=== PATIENT | female | born 1965 | race Caucasian/White ===

== ENCOUNTER 2020-02-29 10:47 | Outpatient (REF) | payer OTHER, SELFPAY | END 2020-02-29 10:48 | disposition home or self-care (01) | LOC: HO.HMGCLDS 10:47 | PROVIDERS: PCP Internal Medicine; Visit Provider Internal Medicine | DX: Z20.828 Contact with and (suspected) exposure to other viral communicable diseases (principal) | CPT/HCPCS: 87635 ==

== ENCOUNTER → 2020-03-07 10:16 | Outpatient (BNVA) | payer OTHER, SELFPAY | PROVIDERS: PCP Internal Medicine; Referring Provider Internal Medicine; Visit Provider Nurse Practitioner | DX: Z86.010 Personal history of colon polyps (principal); G47.33 Obstructive sleep apnea (adult) (pediatric); E66.9 Obesity, unspecified | CPT/HCPCS: 99212 ==

== ENCOUNTER 2020-03-11 10:12 | Outpatient (REF) | payer OTHER, SELFPAY ==
[2020-03-11 12:20] LABS: Estimated Average Glucose 117 mg/dL; Hemoglobin A1c % 5.7 %
[2020-03-11 12:22] LABS: Alanine Aminotransferase 17 U/L (0-31); Aspartate Amino Transferase 18 U/L (5-31); Blood Urea Nitrogen 18 mg/dL (9-16); Calcium 8.4 mg/dL (8.4-10.2); Cholesterol 175 mg/dL; Estimated Glomerular Filt Rate > 60; Glucose Fasting 106 mg/dL (60-99); HDL Cholesterol 51 mg/dL; LDL Cholesterol Calculated 114 mg/dl; Triglycerides 52 mg/dL
[2020-03-11 12:27] LABS: Vitamin D 25-OH Total 25.1 ng/mL (>30)
[2020-03-11 12:37] LABS: Anion Gap 10 (12-20); Carbon Dioxide 30 mmol/L (22-29); Chloride 107 mmol/L (96-108); Potassium 4.4 mmol/l (3.3-5.1); Sodium 143 mmol/L (135-145)
[2020-03-11 13:08] LABS: MANUAL DIFF FLAG NO
[2020-03-11 13:16] LABS: Basophils Percent Auto 0.5 % (0-2); Eosinophils Percent Auto 0.7 % (0-4); Hemoglobin 11.5 g/dl (12.0-16.0); Imm Gran Abs Auto 0.01 X10*3/uL (0.00-0.03); Imm Gran Pct Auto 0.2 % (0.0-0.4); Lymphocytes Absolute Auto 1.5 X10*3/uL (1.2-4.9); Lymphocytes Percent Auto 26.5 % (20-40); Mean Corpuscular HGB Conc 31.9 g/dl (31.0-35.0); Mean Corpuscular Hemoglobin 28.2 pg (27.0-33.0); Mean Corpuscular Volume 88.2 fL (80-98); Mean Platelet Volume 11.8 fL (9.4-12.3); Monocytes Absolute Auto 0.4 X10*3/uL (0.1-1.2); Monocytes Percent Auto 6.7 % (2-11); Neutrophils Absolute Auto 3.7 X10*3/uL (2.0-8.3); Neutrophils Percent Auto 65.4 % (45-73); Platelet Count 171 X10*3/uL (160-400); Red Blood Count 4.08 X10*6/uL (4.20-5.50); Red Cell Distribution Width 12.7 % (11.0-16.0); White Blood Count 5.7 X10*3/uL (4.8-10.8)
[2020-03-11 13:51] LABS: Alanine Aminotransferase 17 U/L (0-31); Albumin Level 3.7 g/dL (3.5-5.0); Alkaline Phosphatase 67 U/L (39-117); Anion Gap 10 (12-20); Aspartate Amino Transferase 18 U/L (5-31); Bilirubin Total 0.3 mg/dL (0.0-1.0); Blood Urea Nitrogen 18 mg/dL (9-16); Calcium 8.5 mg/dL (8.4-10.2); Carbon Dioxide 31 mmol/L (22-29); Chloride 107 mmol/L (96-108); Estimated Glomerular Filt Rate > 60; Glucose Random 92 mg/dL (60-115); Potassium 4.6 mmol/l (3.3-5.1); Sodium 143 mmol/L (135-145); Total Protein 7.1 g/dL (6.5-8.0)
== END 2020-03-11 10:13 | disposition home or self-care (01) ==
LOC: HO.HMGCLDS 10:12
PROVIDERS: PCP Internal Medicine; Referring Provider Nurse Practitioner; Visit Provider Internal Medicine
DX: E78.5 Hyperlipidemia, unspecified (principal); E11.9 Type 2 diabetes mellitus without complications; I10 Essential (primary) hypertension; Z78.0 Asymptomatic menopausal state; D12.6 Benign neoplasm of colon, unspecified
CPT/HCPCS: 36415; 80048; 80053; 80061; 82306; 83036; 84450; 84460; 85025

== ENCOUNTER 2020-06-13 11:11 | Outpatient (REF) | payer OTHER, SELFPAY ==
[2020-06-13 13:56] LABS: MANUAL DIFF FLAG NO
[2020-06-13 14:02] LABS: Basophils Percent Auto 0.5 % (0-2); Eosinophils Absolute Auto 0.1 X10*3/uL (0.0-0.4); Hemoglobin 11.2 g/dl (12.0-16.0); Imm Gran Abs Auto 0.02 X10*3/uL (0.00-0.03); Imm Gran Pct Auto 0.3 % (0.0-0.4); Lymphocytes Absolute Auto 1.1 X10*3/uL (1.2-4.9); Lymphocytes Percent Auto 17.7 % (20-40); Mean Corpuscular Hemoglobin 27.8 pg (27.0-33.0); Mean Corpuscular Volume 86.8 fL (80-98); Mean Platelet Volume 12.8 fL (9.4-12.3); Monocytes Absolute Auto 0.4 X10*3/uL (0.1-1.2); Monocytes Percent Auto 6.7 % (2-11); Neutrophils Absolute Auto 4.6 X10*3/uL (2.0-8.3); Neutrophils Percent Auto 73.8 % (45-73); Platelet Count 171 X10*3/uL (160-400); Red Blood Count 4.03 X10*6/uL (4.20-5.50); Red Cell Distribution Width 13.2 % (11.0-16.0); White Blood Count 6.3 X10*3/uL (4.8-10.8)
[2020-06-13 14:08] LABS: Estimated Average Glucose 120 mg/dL; Hemoglobin A1c % 5.8 %
[2020-06-13 14:38] LABS: Alanine Aminotransferase 19 U/L (0-31); Anion Gap 10 (12-20); Aspartate Amino Transferase 17 U/L (5-31); Blood Urea Nitrogen 25 mg/dL (9-16); Calcium 8.7 mg/dL (8.4-10.2); Carbon Dioxide 31 mmol/L (22-29); Chloride 105 mmol/L (96-108); Cholesterol 159 mg/dL; Estimated Glomerular Filt Rate > 60; Glucose Fasting 86 mg/dL (60-99); HDL Cholesterol 43 mg/dL; LDL Cholesterol Calculated 102 mg/dl; Potassium 4.5 mmol/L (3.3-5.1); Sodium 141 mmol/L (135-145); Triglycerides 70 mg/dL
[2020-06-13 14:41] LABS: Creatinine Urine 137.95 mg/dL; Microalbum/Creatinine Ratio Ur 5.7 ug/mg cr
[2020-06-13 15:01] LABS: TSH reflex Free T4 1.87 uIU/mL (0.32-4.0); Vitamin D 25-OH Total 30.3 ng/mL (>30)
== END 2020-06-13 11:12 | disposition home or self-care (01) ==
LOC: HO.HMGCLDS 11:11
PROVIDERS: PCP Internal Medicine; Visit Provider Internal Medicine
DX: E55.9 Vitamin D deficiency, unspecified (principal); I10 Essential (primary) hypertension; E78.5 Hyperlipidemia, unspecified; E11.9 Type 2 diabetes mellitus without complications; E66.9 Obesity, unspecified; D12.6 Benign neoplasm of colon, unspecified; Z78.0 Asymptomatic menopausal state
CPT/HCPCS: 36415; 80048; 80061; 82043; 82306; 83036; 84443; 84450; 84460; 85025

== ENCOUNTER 2020-07-01 11:28 | Outpatient (REF) | payer OTHER, SELFPAY ==
--- NOTE | ~2020-07-01 | XR_ITS ---
EXAMINATION: XR WRIST, RIGHT CLINICAL INFORMATION: Pain COMPARISON: Previous x-ray October 2016 TECHNIQUE: PA, lateral, and oblique views of the right wrist. FINDINGS: Bone alignment is normal. No fracture or dislocation is seen. There is mild arthritis at the first [facility] joint with osteophyte formation. Joint spaces are otherwise normal. There is soft tissue arterial calcification. XR/XR wrist RT min 3V IMPRESSION: Mild arthritis first [facility] joint.
== END 2020-07-01 11:29 | disposition home or self-care (01) ==
LOC: HO.HMGCX 11:28
PROVIDERS: PCP Internal Medicine; Visit Provider Hospitalist
DX: M25.531 Pain in right wrist (principal)
CPT/HCPCS: 73110

== ENCOUNTER → 2020-07-19 14:39 | Outpatient (BNVA) | payer OTHER, SELFPAY | PROVIDERS: PCP Internal Medicine; Visit Provider Nurse Practitioner Gerontology | DX: E11.9 Type 2 diabetes mellitus without complications (principal); E78.5 Hyperlipidemia, unspecified; E55.9 Vitamin D deficiency, unspecified; I10 Essential (primary) hypertension | CPT/HCPCS: 82947; Q3014 ==

== ENCOUNTER 2020-07-29 10:44 | Outpatient (REF) | payer OTHER, SELFPAY ==
--- NOTE | ~2020-07-29 | CT_ITS ---
EXAMINATION: CT WRIST WITHOUT CONTRAST, RIGHT CLINICAL INFORMATION: Right wrist pain. COMPARISON: Right wrist radiographs dated 07/01/2020 TECHNIQUE: Contiguous axial CT images of the right wrist were obtained without contrast. Multiplanar reformats were provided and reviewed. This CT examination was performed using dose optimization techniques as appropriate, variously including the following: *Automated exposure control *Adjustment of mA and/or kV according to patient size (this includes techniques or standardized protocols for targeted exams where dose is matched to indication/reason for exam; i.e. extremities or head) *Use of iterative reconstruction technique DLP: 217 mGy-cm FINDINGS: No acute fracture or dislocation. Normal carpal alignment. Moderate 1st carpometacarpal joint space narrowing with subchondral sclerosis, mild subchondral cystic change, and marginal osteophytes. More minimal joint space narrowing with tiny marginal osteophytes at the triscaphe joint. No concerning lytic or blastic osseous lesion. No abnormal soft tissue mass or fluid collection. No significant subcutaneous edema. Atherosclerotic calcifications. The visualized flexor and extensor tendons are grossly intact, however, evaluation is limited on CT examination. CT/CT wrist RT wo con IMPRESSION: No acute fracture or dislocation. Moderate degenerative arthritis at the 1st carpometacarpal joint with more minimal degenerative arthritis at the triscaphe joint.
== END 2020-07-29 10:45 | disposition home or self-care (01) ==
LOC: HO.CT 10:44
PROVIDERS: PCP Internal Medicine; Visit Provider Internal Medicine
DX: M25.531 Pain in right wrist (principal)
CPT/HCPCS: 73200

== ENCOUNTER → 2020-08-06 07:38 | Outpatient (BNVA) | payer OTHER, SELFPAY | PROVIDERS: PCP Internal Medicine; Visit Provider Nurse Practitioner Gerontology | DX: E11.9 Type 2 diabetes mellitus without complications (principal); E78.5 Hyperlipidemia, unspecified; I10 Essential (primary) hypertension; E55.9 Vitamin D deficiency, unspecified; Z79.52 Long term (current) use of systemic steroids; Z79.84 Long term (current) use of oral hypoglycemic drugs; Z79.899 Other long term (current) drug therapy | CPT/HCPCS: Q3014 ==

== ENCOUNTER → 2020-08-12 13:00 | Outpatient (BNVA) | payer OTHER, SELFPAY | PROVIDERS: PCP Internal Medicine; Visit Provider Orthopaedic Surgery | DX: M25.531 Pain in right wrist (principal); M65.321 Trigger finger, right index finger | CPT/HCPCS: 20550; 99202; J1100 ==

== ENCOUNTER 2020-08-15 11:12 | Emergency (ER) | payer OTHER, SELFPAY ==
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
[2020-08-15 11:25] VITALS: BP 153/58; PULSE 66; RESP 18; TEMP 36.7; O2SAT 100; BMI 27.6
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
[2020-08-15] MEDS: Ketorolac Tromethamine 30 MG/ML VIAL IM (12:25)
== END 2020-08-15 13:35 | disposition home or self-care (01) ==
PROVIDERS: Emergency Provider Emergency Medicine Emergency Medical Services; PCP Internal Medicine
DX: M25.531 Pain in right wrist (principal); E11.9 Type 2 diabetes mellitus without complications; E78.5 Hyperlipidemia, unspecified; I10 Essential (primary) hypertension; D64.9 Anemia, unspecified; J45.909 Unspecified asthma, uncomplicated
CPT/HCPCS: 73110; 96372; 99283; 99284; J1885

== ENCOUNTER 2020-09-04 13:54 | Outpatient (REF) | payer OTHER, SELFPAY ==
--- NOTE | ~2020-09-04 | MR_ITS ---
EXAMINATION: MR WRIST WITHOUT AND WITH CONTRAST, RIGHT CLINICAL INFORMATION: Right wrist pain COMPARISON: CT 07/29/2020. Radiographs 08/15/2014. TECHNIQUE: MRI of the wrist was performed before and after the intravenous administration of 7 mL Gadavist on a high-field scanner. FINDINGS: There are small effusions of the distal radial ulnar joint and radiocarpal joint with enhancing synovitis. Marked reactive marrow edema of the distal ulna with possible developing erosion at the fovea. Prominent edema and enhancement of the surrounding soft tissues along with enhancing tenosynovitis of the extensor carpi ulnaris. There is marrow edema and enhancement at the ulnar aspect of the triquetrum and hamate. The scapholunate and lunotriquetral ligaments appear intact. Probable small full-thickness perforation at the radial aspect of the triangular fibrocartilage complex on coronal image 12. The carpal tunnel, flexor and extensor tendons are intact. There is bone formation along the radial and ulnar aspects of the ulnar groove, along the undersurface of the ECU tendon, which may be from previous inflammatory process or recurrent tendon subluxations. MR/MR wrist RT wo/w con IMPRESSION: Evidence of an active inflammatory arthritis most prominent at the ulnar aspect of the wrist including the distal radioulnar joint and radiocarpal joint with marrow edema and enhancement most prominent at the distal ulna with developing erosion at the fovea. This is nonspecific and could represent infection, although other inflammatory arthropathies such as rheumatoid arthritis could have this appearance. Probable small full-thickness perforation at the radial aspect of the TFCC.
[2020-09-04 14:26] LABS: MANUAL DIFF FLAG NO
[2020-09-04 14:36] LABS: Basophils Percent Auto 0.3 % (0-2); Eosinophils Absolute Auto 0.1 X10*3/uL (0.0-0.4); Eosinophils Percent Auto 0.7 % (0-4); Hematocrit 34.1 % (37-47); Hemoglobin 10.9 g/dl (12.0-16.0); Imm Gran Abs Auto 0.02 X10*3/uL (0.00-0.03); Imm Gran Pct Auto 0.3 % (0.0-0.4); Lymphocytes Absolute Auto 1.2 X10*3/uL (1.2-4.9); Mean Corpuscular Hemoglobin 27.9 pg (27.0-33.0); Mean Corpuscular Volume 87.4 fL (80-98); Monocytes Absolute Auto 0.5 X10*3/uL (0.1-1.2); Neutrophils Absolute Auto 5.8 X10*3/uL (2.0-8.3); Neutrophils Percent Auto 75.7 % (45-73); Platelet Count 182 X10*3/uL (160-400); Red Cell Distribution Width 13.2 % (11.0-16.0); White Blood Count 7.7 X10*3/uL (4.8-10.8)
[2020-09-04 14:51] LABS: Estimated Average Glucose 114 mg/dL; Hemoglobin A1c % 5.6 %
[2020-09-04 14:52] LABS: Alanine Aminotransferase 11 U/L (0-31); Anion Gap 11 (12-20); Aspartate Amino Transferase 17 U/L (5-31); Blood Urea Nitrogen 21 mg/dL (9-16); Calcium 8.5 mg/dL (8.4-10.2); Carbon Dioxide 27 mmol/L (22-29); Chloride 108 mmol/L (96-108); Cholesterol 146 mg/dL; Estimated Glomerular Filt Rate > 60; Glucose Fasting 122 mg/dL (60-99); HDL Cholesterol 46 mg/dL; Iron 42 mcg/dL (30-160); LDL Cholesterol Calculated 76 mg/dl; Percent Iron Saturation 14 % (15-50); Potassium 4.2 mmol/L (3.3-5.1); Sodium 142 mmol/L (135-145); Total Iron Binding Capacity 294 mcg/dL (228-428); Triglycerides 120 mg/dL; Unsaturated Iron Binding 252 ug/dL
== END 2020-09-04 13:55 | disposition home or self-care (01) ==
LOC: HO.MRI 13:54
PROVIDERS: Absent Provider Internal Medicine; PCP Internal Medicine; Visit Provider Orthopaedic Surgery
DX: M25.531 Pain in right wrist (principal); D64.9 Anemia, unspecified; E11.9 Type 2 diabetes mellitus without complications; E78.5 Hyperlipidemia, unspecified; I10 Essential (primary) hypertension; Z78.0 Asymptomatic menopausal state
CPT/HCPCS: 36415; 73223; 80048; 80061; 82306; 83036; 83540; 84450; 84460; 85025; A9585

== ENCOUNTER 2020-09-18 09:15 | Outpatient (REF) | payer OTHER, SELFPAY ==
[2020-09-18 16:45] LABS: Blood Urea Nitrogen 15 mg/dL (9-16); C Reactive Protein 1.28 mg/dL (< or = 0.50); Estimated Glomerular Filt Rate > 60; Rheumatoid Factor < 15.0 IU/mL (<15.0)
[2020-09-18 17:13] LABS: Erythrocyte Sedimentation Rate 50 MM/HR (0-20)
[2020-09-21 12:21] LABS: Anti Nuclear Antibody Screen NEGATIVE (NEGATIVE)
== END 2020-09-18 09:16 | disposition home or self-care (01) ==
LOC: HO.HMGCLDS 09:15
PROVIDERS: PCP Internal Medicine; Visit Provider Orthopaedic Surgery
DX: M65.311 Trigger thumb, right thumb (principal); M65.831 Other synovitis and tenosynovitis, right forearm; M25.531 Pain in right wrist
CPT/HCPCS: 20550; 36415; 82565; 84520; 85652; 86038; 86039; 86140; 86431; 99212; J1100

== ENCOUNTER 2020-10-24 08:50 | Day surgery (SDC) | payer OTHER, SELFPAY ==
[2020-10-24 09:09] VITALS: BMI 24.3
[2020-10-24 09:14] VITALS: BP 152/62; PULSE 63; RESP 16; TEMP 36.1; O2SAT 98
[2020-10-24 09:17] LABS: Glucose, Whole Blood 112 mg/dL (60-115)
[2020-10-24] MEDS: Lidocaine HCl 1%/Epi 1:100,000 20 ML VIAL 9 ML INFILTRATI ×2 (10:33)
--- NOTE | 2020-10-24 10:52 | MHC.SHP ---
Pre-Procedural Eval Section A Date of Service: 10/24/20 Section B Chief Complaint: trigger fingers Allergies: Allergies Allergy/AdvReac Type Severity Reaction Status Date / Time No Known Allergies Allergy Verified 10/24/20 08:58 [No Known Allergies*] Plan I have reviewed the history and physical and performed a pertinent physical examination on my patient. No changes have occurred unless specified.
--- NOTE | 2020-10-24 10:52 | W.PM.OPN ---
Operative Note Operative Note Date of Service: 10/24/20 Narrative: Operative Note Preop diagnosis: 1. Right index finger Trigger finger 2. Right trigger thumb Postop diagnosis: Same Procedure: 1. Right index finger A1 suzanna release 2. Right thumb A1 suzanna release Surgeon: Smitha Thomas MD Anesthesia: local block using 1% lidocaine with epinephrine Findings: No locking or catching after A1 suzanna release EBL: Less than 5 mL Tourniquet time: None Specimens: None Complications: None Disposition: Brought to recovery room in stable condition Plan: Follow-up for 7-10 days for wound check and suture removal Indications: The patient is 55 years old, with a right index finger trigger finger and right trigger thumb that have been unresponsive to nonoperative management. The risks and benefits of operative treatment including but not limited to risk of damage to blood vessels, nerves, tendons, infection, persistent pain, persistent symptoms, recurrence or possible need for additional surgery were discussed with the patient and the patient wishes to proceed with surgery. Procedure: Once consent was obtained a local block was performed in the preop area using a combination of 1% lidocaine with epinephrine. The patient was then brought back to the operating suite and placed on the operative table in supine position. A tourniquet was applied to the proximal aspect of the right upper extremity and the limb was prepped and draped in a standard surgical fashion. Once assured that we had a good block, a 1.5 cm oblique incision was made centered over the A1 suzanna of the right index finger . The incision was made through the skin to the subcutaneous tissues using a #15 blade. Careful dissection was made down to the level of the A1 suzanna using tenotomy scissors, with care being taken to protect the nearby neurovascular structures. A longitudinal incision was made in the A1 suzanna 1st using a #15 blade, then using tenotomy scissors under direct visualization. The A1 suzanna was noted to be thickened. Following our A1 suzanna release, we no longer saw any locking or catching of the digit with flexion and extension. Once assured that we had a good block, a 1.5 cm oblique incision was made centered over the A1 suzanna of the right thumb . The incision was made through the skin to the subcutaneous tissues using a #15 blade. Careful dissection was made down to the level of the A1 suzanna using tenotomy scissors, with care being taken to protect the nearby neurovascular structures. A longitudinal incision was made in the A1 suzanna 1st using a #15 blade, then using tenotomy scissors under direct visualization. The A1 suzanna was noted to be thickened. Following our A1 suzanna release, we no longer saw any locking or catching of the digit with flexion and extension. Once satisfied with our A1 suzanna release the wound was copiously irrigated with normal saline and hemostasis was obtained with a brief period of local pressure. The skin edges were reapproximated with some 5.0 nylon suture material and a sterile dressing was applied. The patient appears to have tolerated the procedure well and with no complications. All digits were well vascularized at the conclusion of the case.
[2020-10-24 11:23] VITALS: BP 114/53; PULSE 90; RESP 18; TEMP 36.9; O2SAT 99
== END 2020-10-24 11:50 | disposition home or self-care (01) ==
PROVIDERS: PCP Internal Medicine; Visit Provider Orthopaedic Surgery
PROC: (CPT 26055; principal; 2020-10-24 10:00)
DX: M65.321 Trigger finger, right index finger (principal); M65.311 Trigger thumb, right thumb; I69.354 Hemiplegia and hemiparesis following cerebral infarction affecting left non-dominant side; E11.9 Type 2 diabetes mellitus without complications; I10 Essential (primary) hypertension; G47.30 Sleep apnea, unspecified; E55.9 Vitamin D deficiency, unspecified; Z79.84 Long term (current) use of oral hypoglycemic drugs; Z79.899 Other long term (current) drug therapy; Z85.42 Personal history of malignant neoplasm of other parts of uterus
CPT/HCPCS: 26055 ×2; 82947

== ENCOUNTER → 2020-11-20 14:33 | Outpatient (BNVA) | payer OTHER, SELFPAY | PROVIDERS: PCP Internal Medicine; Visit Provider Nurse Practitioner Gerontology | DX: E11.9 Type 2 diabetes mellitus without complications (principal); E78.5 Hyperlipidemia, unspecified; E55.9 Vitamin D deficiency, unspecified; I10 Essential (primary) hypertension; B35.3 Tinea pedis | CPT/HCPCS: 82947; 99212 ==

== ENCOUNTER → 2020-11-27 14:28 | Outpatient (BNVA) | payer OTHER, SELFPAY | PROVIDERS: PCP Internal Medicine; Visit Provider Orthopaedic Surgery | DX: M65.311 Trigger thumb, right thumb (principal); M65.321 Trigger finger, right index finger | CPT/HCPCS: 99212 ==

== ENCOUNTER 2020-12-06 10:00 | Outpatient (REF) | payer OTHER, SELFPAY ==
--- NOTE | ~2020-12-06 | XR_ITS ---
EXAMINATION: XR SHOULDER, RIGHT CLINICAL INFORMATION: Pain. COMPARISON: None TECHNIQUE: Three views of the right shoulder. FINDINGS: There is mild reduction in the glenohumeral joint space with moderate periarticular spurring. Also visualized is inferior acromial enthesophyte. No loose bodies, fracture or subluxation seen. No lytic or sclerotic process. No soft tissue calcification. XR/XR shoulder RT min 2V IMPRESSION: Degenerative arthritic changes glenohumeral joint space without fracture, loose bodies or joint effusion. There is small inferior acromial enthesophytes.
== END 2020-12-06 10:01 | disposition home or self-care (01) ==
LOC: HO.HOSX 10:00
PROVIDERS: PCP Internal Medicine; Visit Provider Physician Assistant
DX: M25.511 Pain in right shoulder (principal)
CPT/HCPCS: 20610; 73030; 99212; J1020

== ENCOUNTER 2021-01-14 10:05 | Inpatient (IN) | payer OTHER, SELFPAY ==
[2021-01-14] VITALS (7 sets, daily range): BP systolic 95–197; BP diastolic 50–79; PULSE 61–85; RESP 18–20; TEMP 36.1–36.6; O2SAT 97–100; BMI 28.3
--- NOTE | 2021-01-14 | ECG_ITS ---
Test Reason : DIZZINESS Blood Pressure : / mmHG Vent. Rate : 060 BPM Atrial Rate : 060 BPM P-R Int : 166 ms QRS Dur : 088 ms QT Int : 424 ms P-R-T Axes : 024 051 024 degrees QTc Int : 424 ms Normal sinus rhythm Normal ECG When compared with ECG of 11-AUG-2018 14:12, No significant change was found Referred By: Jos Flores Electronically Signed By:ADRYAN BRUNO
--- NOTE | ~2021-01-14 | CT_ITS ---
EXAMINATION: CT ABDOMEN AND PELVIS WITH CONTRAST CLINICAL INFORMATION: Upper abdominal pain and vomiting. COMPARISON: CT abdomen and pelvis 12/19/2018. TECHNIQUE: Multidetector volumetric images were obtained from the superior aspect of the liver through the pubic symphysis following administration 85 mL of Omnipaque 350 intravenous contrast. Sagittal and coronal reformatted images were obtained on the technologist's workstation. Oral contrast: No This CT examination was performed using dose optimization techniques as appropriate, variously including the following: *Automated exposure control *Adjustment of mA and/or kV according to patient size (this includes techniques or standardized protocols for targeted exams where dose is matched to indication/reason for exam; i.e. extremities or head) *Use of iterative reconstruction technique DLP: 865 mGy-cm FINDINGS: LUNG BASES: The lung bases are clear of acute process. The tumor calcified nodule left lower lobe axial image . LIVER, GALLBLADDER, AND BILIARY TREE: The liver is normal in size, shape, and attenuation. No focal hepatic lesion or biliary ductal dilatation is present. The gallbladder has been surgically removed. PANCREAS: The pancreas is homogeneous in density without enlargement. SPLEEN: Unremarkable. ADRENAL GLANDS: Unremarkable. KIDNEYS AND URETERS: The kidneys are normal size, shape and attenuation with mild lobulation. There is a moderate size lower pole right renal bilobed cyst measuring 5.7 x 4.0 cm. An extrarenal left kidney pelvis is seen. No radiopaque renal calculi or hydronephrosis seen. There is no perinephric stranding. BLADDER: Mildly distended urinary bladder. GASTROINTESTINAL TRACT: There is scattered stool and gas seen throughout the colon without any significant distention. There is scattered sigmoid diverticulosis without mural thickening or pericolic fat stranding. No free air or free fluid seen. ABDOMINAL WALL: No significant hernia is appreciated. LYMPH NODES: Normal. VASCULAR: There is atherosclerotic changes of abdominal aorta without aneurysmal dilatation. PELVIC VISCERA: There is no pelvic mass of free fluid. No abnormal pelvic or inguinal lymph nodes seen. OSSEOUS STRUCTURES: There are degenerative disc changes with vacuum disc phenomena L5-S1 disc level with moderate posterior spondylosis at the L3-L4 and L5-S1 disc levels. There is moderate bilateral facet joint arthropathy at L3-L4 and L5-S1 disc levels.- CT/CT abdomen pelvis w con IMPRESSION: No acute intra-abdominal process seen. Moderate constipation. Colonic diverticulosis without diverticulitis.
--- NOTE | ~2021-01-14 | CT_ITS ---
EXAMINATION: CT HEAD WITHOUT CONTRAST CLINICAL INFORMATION: Dizziness, gait disturbance, headaches COMPARISON: None TECHNIQUE: Contiguous axial imaging was performed from the skull base to vertex without intravenous administration of contrast. This CT examination was performed using dose optimization techniques as appropriate, variously including the following: *Automated exposure control *Adjustment of mA and/or kV according to patient size (this includes techniques or standardized protocols for targeted exams where dose is matched to indication/reason for exam; i.e. extremities or head) *Use of iterative reconstruction technique DLP: 596 mGy-cm FINDINGS: There is no evidence of acute intracranial hemorrhage or territorial infarction. No abnormal mass effect or midline shift is seen. Romero to white matter differentiation is well preserved. No extra-axial fluid collections are identified. The ventricles are normal in size. There is no abnormal attenuation within the brain parenchyma. The osseous structures and soft tissues are normal. There is debris scattered debris visualized in bilateral sphenoid sinuses. Rest of the paranasal sinuses and mastoid air cells are well-aerated. CT/CT head/brain wo con IMPRESSION: No acute intracranial process seen.
--- NOTE | ~2021-01-14 | CT_ITS ---
EXAMINATION: CT angio head neck CLINICAL INFORMATION: Dizziness. Gait disturbance. Headache. COMPARISON: CT scan of the head 01/14/2021, brain MRI 01/21/2009. TECHNIQUE: Flame Anne[employer] Machine Setter images were obtained. A CT angiogram of the head and neck was performed in the arterial phase after the intravenous administration of 85 mL Omnipaque 350. Pre and delayed postcontrast images of the head were also obtained. MIP reconstructions were generated in multiple orientations at the acquisition workstation. Multiple three-dimensional surface rendered images and maximum intensity projection images were generated on a dedicated 3-D lab workstation. Arterial stenoses are measured in accordance with NASCET criteria or similar method if applicable. This CT examination was performed using dose optimization techniques as appropriate, including one or more of the following: Automated exposure control, iterative reconstruction, and adjustment of technique factors (mA and/or kVp) according to patient size (this includes techniques or standardized protocols for targeted exams where dose is matched to indication/reason for exam). Total exam dose-length product 2508 mGy-cm FINDINGS: Head: There are scattered chronic small vessel ischemic changes within the periventricular white matter and katelin. No evidence of acute territorial infarct. No abnormal intracranial mass or enhancement. No intracanal mass effect or midline shift. Lateral and third ventricles are proportionate to the subarachnoid spaces. No hydroceles. The calvarium and skull base are intact. Mastoid air cells and middle ear cavities are well-aerated. No active paranasal sinus disease. Of note there is a nodular mass located within the right parotid gland extending across the superficial and deep lobes behind the retromandibular vein measuring 2.1 cm in diameter. This finding is best depicted on axial image 500 [address] angiogram neck: Scattered atheromatous calcification involves the aortic arch apex. Origins of the major aortic branches are widely patent. Common carotid arteries are patent. Partially calcified atheromatous plaque involves both carotid bifurcations. There is 25% stenosis of the right internal carotid artery at its origin. No stenosis of the left extracranial internal carotid artery. The cervical segments of the vertebral arteries as well as their origins are patent. CT angiogram head: Atheromatous calcification involves the cavernous and supraclinoid segments of both internal carotid arteries. No intracranial internal carotid artery stenosis. There is mild irregular narrowing involving the midportion of the basilar artery best depicted on MIP image 60 of 99 series 13. There is also irregular narrowing involving the distal A2 segment of an azygos anterior cerebral artery best depicted on sagittal MIP image 94 of 179 series 10. Anterior, middle, and posterior cerebral artery complexes are otherwise unremarkable. No intracranial large vessel occlusion. Other: Soft tissues of the neck including the thyroid gland are normal. Lung apices are clear. There is advanced multilevel degenerative spondylosis of the cervical spine. CT/CT angio head neck IMPRESSION: Partially calcified atheromatous plaque causes 25% stenosis at the origin of the right internal carotid artery. Cervical carotid and vertebral arteries are otherwise patent. There is mild irregular narrowing involving the midportion of the basilar artery and the distal A2 segment of an azygos anterior cerebral artery. Otherwise no intracranial or vessel occlusion. There are scattered chronic small vessel ischemic changes within the periventricular white matter and katelin. No evidence of acute territorial infarct or hemorrhage. No abnormal intracranial mass or enhancement. There is a nodular mass within the right parotid gland that measures 2.1 cm in diameter. 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 This lesion appears to have gradually increased in size when compared to multiple previous examinations since the brain MRI from 01/21/2009.
--- NOTE | 2021-01-14 11:36 | ED.DIZZY ---
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 Patient has also had a headache. Patient states her gait has been disturbed since yesterday, patient states her belly is sore. She is nauseous. Reports vomiting started today and is yellow. Lips became numb today, and are numb on both sides upper and lower. Dizziness is more a feeling of disequilibrium rather than of feeling of lightheadedness or as if the room is spinning. Patient has had no fevers, no diarrhea, no recent cold symptoms or ear pain, she did not take her blood pressure meds today. MD elicited complaint: dizziness Pertinent past history: stroke Onset (ago): day(s) (2) Timing: sudden onset Severity: moderate Description: room spinning and off-balance History of similar symptoms: No Exacerbating factors: change in body position Relieving factors: nothing Associated symptoms: nausea and vomiting Associated neuro symptoms: facial numbness and gait ataxia Related Data Home Medications Medication Instructions Recorded Confirmed lisinopril 10 1 tab PO DAILY 06/14/20 01/14/21 mg-hydrochlorothiazide 12.5 mg tablet gabapentin 100 mg capsule 100 mg PO cap 07/19/20 01/12/21 Previous Rx's Medication Instructions Recorded polyethylene glycol 3350 17 17 g PO DIRECTED 1 Days #17 g 03/13/20 gram/dose oral powder (Miralax) ferrous fumarate 324 mg (106 mg 324 mg PO DAILY #30 tab 06/14/20 iron) tablet blood-glucose meter (FreeStyle #1 ea 07/19/20 Lite Meter) blood sugar diagnostic (FreeStyle #300 ea 10/08/20 Lite Strips) ezetimibe 10 mg tablet (Zetia) 10 mg PO DAILY 90 Days #90 tab 10/08/20 cholecalciferol (vitamin D3) 25 25 mcg PO DAILY #90 cap 10/13/20 mcg (1,000 unit) capsule (Vitamin D3) dulaglutide 1.5 mg/0.5 mL 1.5 mg SUBCUT QWEEK 28 Days #2 ml 11/20/20 subcutaneous pen injector (Trulicity) ibuprofen 600 mg tablet 600 mg PO BID PRN #40 tab 11/29/20 Allergies Allergy/AdvReac Type Severity Reaction Status Date / Time No Known Allergies Allergy Verified 01/12/21 21:55 [No Known Allergies*] Review of Systems Constitutional: Constitutional: Denies body ache(s), Denies chills, Denies fatigue, Denies fever(s), Reports headache(s), Denies malaise and Denies weakness Eyes: Eyes: Denies blurry vision, Denies change in vision and Denies diplopia ENT: Reports dizziness, Denies otalgia, Reports headache(s), Denies mouth pain, Denies neck pain, Reports disequilibrium, Denies post nasal drip, Denies sinus pain, Denies sinus pressure, Denies sore throat and Denies throat swelling Cardiovascular: Cardiovascular: Denies chest pain, Denies syncope, Denies leg edema, Denies lightheadedness, Denies Loss of Consciousness, Denies palpitations and Denies dyspnea Respiratory: Respiratory: Denies chest congestion, Denies cough and Denies dyspnea Gastrointestinal: Gastrointestinal: Reports abdominal pain, Denies hematochezia, Denies constipation, Denies diarrhea, Reports nausea, Reports vomiting and Denies hematemesis Genitourinary: Genitourinary: Denies hematuria, Denies dysuria, Denies pelvic pain, Denies urinary incontinence, Denies urinary hesitancy and Reports urinary urgency Musculoskeletal: Musculoskeletal: Reports abnormal gait, Denies neck pain and Reports numbness Integumentary/Breasts: Skin/Breast: Denies erythema and Denies rash Neurologic: Denies Abnormal speech present, Reports abnormal gait, Denies confusion, Reports dizziness, Denies syncope, Reports headache(s), Reports numbness, Reports Sensory deficit (Neuro) (lips), Reports disequilibrium and Denies weakness Psychiatric: Psychiatric: Denies anxiety, Denies confusion and Denies depression Endocrine: Endocrine: Denies fatigue and Denies palpitations Allergic/Immunologic: Allergic/Immunologic: Denies throat swelling PMFSH Past Medical History Medical History Anemia Asthma Cancer CVA (cerebral vascular accident) Depression Dyslipidemia Essential hypertension GERD (gastroesophageal reflux disease) History of degenerative joint disease Menopause Normocytic normochromic anemia Sleep apnea Tubular adenoma of colon Type 2 diabetes mellitus without complication, without long-term current use of insulin Vitamin D deficiency Surgical History History of carpal tunnel release History of total abdominal hysterectomy Hx of cholecystectomy Hx of colonoscopy Hx of endoscopy Hx of hand surgery Family History Family History Father Cancer Mother Cancer Myocardial infarction Family/Other Diabetes Social History Social History Household Members: None Housing: Apartment Alcohol intake: never Patient Tobacco Use Status: Never used Tobacco e-Cigarette/Vaping Use: Never Used Use of substances other than those prescribed or required for medical reasons: No Advance Directives: No Advance Directives Information Provided: No Patient : No service: No Current occupational status: disabled Current occupation: rt handed Physical Exam Vital Signs: Vital Signs: Last Vital Signs Temp 97 F 01/14/21 16:41 Pulse 61 01/14/21 16:41 Resp 20 01/14/21 16:41 BP 181/63 H 01/14/21 16:41 Pulse Ox 97 01/14/21 16:41 Body Mass Index 28.3 Const: General: No confusion Nutritional Appearance: well nourished Orientation/consciousness: patient oriented x3 and No confusion Limitations: no limitations HENMT: Head: Yes normal to inspection, Yes normocephalic and Yes atraumatic Ears: hearing grossly normal bilaterally, external ears normal, TM's normal bilaterally and EAC's normal General nose exam: Normal external nose present Face and sinus: Yes normal facial exam and Yes sinuses nontender Mouth: Normal oral and palatal mucosa present Throat: Yes posterior oropharynx normal Eyes: Conjunctivae: conjunctivae normal Pupils: Equal, round and reactive pupils present EOM: EOMs intact bilaterally Neck: Neck: Yes full ROM, Yes no lymphadenopathy and Yes supple Resp: Effort & Inspection: normal respiratory effort and able to speak in complete sentences Auscultation: clear to auscultation bilaterally, no crackles, no rales, no rhonchi and no wheezes Cardio: Rate: regular rate Rhythm: regular rhythm Heart sounds: S1 normal heart sound present and S2 normal heart sound present GI: Inspection: Yes scar (colon cancer) Palpation (GI): Soft to palpation, not firm, Tenderness to palpation present (GI) in the epigastrum, in the LUQ and in the RUQ, Guarding due to palpation present (GI) in the LUQ and not rigid Percussion: Yes normal to percussion Auscultation: normal bowel sounds Skin: General skin exam: no rashes or lesions noted Neuro: Other: Lips feel numb to light touch bilaterally General: patient oriented x3 and No confusion Cranial nerves: Yes CN's II-XII intact bilaterally, Yes Facial sensation intact/muscles of mastication intact, Yes Equal, round and reactive pupils present, Yes Bilaterally intact EOM present, Yes Nystagmus not present, Yes Normal facial strength present, Yes Midline tongue present, Yes Ability to bilaterally rotate head present and Yes Ability to bilaterally elevate shoulders present Cognition (Neuro): normal cognition Speech: No Abnormal speech present Gait exam (Neuro): Ataxic gait present Motor exam (neuro): Other motor observations present (baseline wekness left leg) Sensory Exam: Sensory deficit (Neuro) (lips) Coordination: other (figer to nose normal right side, weak on left chronically) Romberg Test: Negative Pupils: Normal pupillary reactivity/response: bilateral Extrem: Other: left arm left lg weakness that is chronic Psych: Appearance: grossly normal Affect: normal affect Attitude: cooperative Thought process: Normal thought process present Course Course Course Narrative: 55-year-old presents for 2 days of dizziness with lip numbness and vomiting today. Patient states she is nauseous in her abdomen hurts. Patient states she has a headache and was having hard time walking yesterday. On exam, patient has numbness to light touch around her lips, she is chronically weak on her left side and cannot do [id number] on her left side which she states is her baseline. No nystagmus.Patient otherwise is neurologically intact. When I help patient stand up to walk her, she became unsteady in her gait and got a sudden headache. Patient also stating urinary frequency. Patient has past medical history of CVA Will obtain CT head, CT angio head and neck, get coags, magnesium, labs, COVID. Gave Zofran, fluids, Tylenol. Patient's systolic blood pressure is in the 180s. Will give her home meds which she did not take today for hypertension. Patient's CBC is within normal limits, coags are normal, magnesium 2.1. Chemistries show potassium of 5.4 with a normal creatinine is 0.68. Will repeat potassium. Patient's urine shows infection, positive nitrates, positive leukocyte esterase with 10-14 white blood cells. Started patient on ceftriaxone are awaiting CT results Patient's repeat chemistry shows a potassium of 4.1. CT of abdomen pelvic shows chronic constipation. Head CT shows no acute intracranial pathology. CT angiogram showed no acute infarct, hemorrhage, and a possible parotid neoplasm. See body of report below; Partially calcified atheromatous plaque causes 25% stenosis at the origin of the right internal carotid artery. Cervical carotid and vertebral arteries are otherwise patent. There is mild irregular narrowing involving the midportion of the basilar artery and the distal A2 segment of an azygos anterior cerebral artery. Otherwise no intracranial or vessel occlusion. There are scattered chronic small vessel ischemic changes within the periventricular white matter and katelin. No evidence of acute territorial infarct or hemorrhage. No abnormal intracranial mass or enhancement. ? There is a nodular mass within the right parotid gland that measures 2.1 cm in diameter. 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 This lesion appears to have gradually increased in size when compared to multiple previous examinations since the brain MRI from 01/21/2009. MDM - Dizziness Lab Data Result diagrams: 01/14/21 12:34 01/14/21 15:05 Labs: Lab Results 01/14/21 01/14/21 01/14/21 Range/Units 12:26 12:33 12:34 WBC 7.7 (4.8-10.8) X10*3/uL RBC 4.20 (4.20-5.50) X10*6/uL Hgb 11.8 L (12.0-16.0) g/dl Hct 35.9 L (37-47) % MCV 85.5 (80-98) fL MCH 28.1 (27.0-33.0) pg MCHC 32.9 (31.0-35.0) g/dl RDW 13.4 (11.0-16.0) % Plt Count 189 (160-400) X10*3/uL MPV 11.6 (9.4-12.3) fL Immature Gran % (Auto) 0.4 (0.0-0.4) % Neut % (Auto) 82.6 H (45-73) % Lymph % (Auto) 11.6 L (20-40) % [place] % (Auto) 4.7 (2-11) % Eos % (Auto) 0.4 (0-4) % Baso % (Auto) 0.3 (0-2) % Lymph # (Auto) 0.9 L (1.2-4.9) X10*3/uL [place] # (Auto) 0.4 (0.1-1.2) X10*3/uL Eos # (Auto) 0.0 (0.0-0.4) X10*3/uL Baso # (Auto) 0.0 (0.0-0.2) X10*3/uL Abs Immat Gran (auto) 0.03 (0.00-0.03) X10*3/uL Absolute Neuts (auto) 6.3 (2.0-8.3) X10*3/uL Absolute Nucleated RBC 0.000 (0.0-0.012) X10*3/uL Nucleated RBC % (auto) 0.0 (0.0-0.2) /100WBC PT (9.9-13.0) SEC INR (0.9-1.1) APTT (24.1-38.0) SEC Sodium 141 (135-145) mmol/L Potassium 5.4 H D (3.3-5.1) mmol/L Chloride 107 (96-108) mmol/L Carbon Dioxide 27 (22-29) mmol/L Anion Gap 12 (12-20) BUN 14 (9-16) mg/dL Creatinine 0.68 (0.5-1.4) mg/dL Estim Creat Clear Calc 80.5 Estimated GFR > 60 Random Glucose 109 (60-115) mg/dL Calcium 9.1 D (8.4-10.2) mg/dL Magnesium 2.1 (1.6-2.6) mg/dL Total Bilirubin 0.5 (0.0-1.0) mg/dL AST 20 (5-31) U/L ALT 13 (0-31) U/L Alkaline Phosphatase 77 (39-117) U/L Total Protein 7.6 (6.5-8.0) g/dL Albumin 3.5 (3.5-5.0) g/dL Urine Color Urine Appearance Urine pH (5.0-8.0) Ur Specific [place] (1.005-1.025) Urine Protein (NEG-TRACE) MG/DL Urine Glucose (UA) (NEG) MG/DL Urine Ketones (NEG) MG/DL Urine Blood (NEG) Urine Nitrite (NEG) Ur Leukocyte Esterase (NEG) Urine RBC (0) /HPF Urine WBC (0-4) /HPF Ur Squamous Epith Cells /LPF Urine Bacteria /LPF COVID-19 ([facility]) Negative (Negative) COVID-19 Clin Com See Note 01/14/21 01/14/21 01/14/21 Range/Units 12:34 12:37 15:05 WBC (4.8-10.8) X10*3/uL RBC (4.20-5.50) X10*6/uL Hgb (12.0-16.0) g/dl Hct (37-47) % MCV (80-98) fL MCH (27.0-33.0) pg MCHC (31.0-35.0) g/dl RDW (11.0-16.0) % Plt Count (160-400) X10*3/uL MPV (9.4-12.3) fL Immature Gran % (Auto) (0.0-0.4) % Neut % (Auto) (45-73) % Lymph % (Auto) (20-40) % [place] % (Auto) (2-11) % Eos % (Auto) (0-4) % Baso % (Auto) (0-2) % Lymph # (Auto) (1.2-4.9) X10*3/uL [place] # (Auto) (0.1-1.2) X10*3/uL Eos # (Auto) (0.0-0.4) X10*3/uL Baso # (Auto) (0.0-0.2) X10*3/uL Abs Immat Gran (auto) (0.00-0.03) X10*3/uL Absolute Neuts (auto) (2.0-8.3) X10*3/uL Absolute Nucleated RBC (0.0-0.012) X10*3/uL Nucleated RBC % (auto) (0.0-0.2) /100WBC PT 10.4 (9.9-13.0) SEC INR 0.9 (0.9-1.1) APTT 34.0 (24.1-38.0) SEC Sodium 140 (135-145) mmol/L Potassium 4.1 D (3.3-5.1) mmol/L Chloride 107 (96-108) mmol/L Carbon Dioxide 26 (22-29) mmol/L Anion Gap 11 L (12-20) BUN 12 (9-16) mg/dL Creatinine 0.61 (0.5-1.4) mg/dL Estim Creat Clear Calc 89.8 Estimated GFR > 60 Random Glucose 91 (60-115) mg/dL Calcium 8.3 L D (8.4-10.2) mg/dL Magnesium (1.6-2.6) mg/dL Total Bilirubin (0.0-1.0) mg/dL AST (5-31) U/L ALT (0-31) U/L Alkaline Phosphatase (39-117) U/L Total Protein (6.5-8.0) g/dL Albumin (3.5-5.0) g/dL Urine Color STRAW Urine Appearance CLOUDY Urine pH 6.0 (5.0-8.0) Ur Specific [place] 1.020 (1.005-1.025) Urine Protein NEG (NEG-TRACE) MG/DL Urine Glucose (UA) NEG (NEG) MG/DL Urine Ketones NEG (NEG) MG/DL Urine Blood NEG (NEG) Urine Nitrite POS H (NEG) Ur Leukocyte Esterase TRACE H (NEG) Urine RBC 0 (0) /HPF Urine WBC 10-14 H (0-4) /HPF Ur Squamous Epith Cells NONE /LPF Urine Bacteria 4+ /LPF COVID-19 ([facility]) (Negative) COVID-19 Clin Com Discharge Plan Discharge Clinical Impression: Dizziness, Parotid mass UTI (urinary tract infection) Qualifiers: Urinary tract infection type: acute cystitis Hematuria presence: without hematuria Qualified Code(s): N30.00 - Acute cystitis without hematuria Patient Disposition: Admitted As Inpatient
[2021-01-14] MEDS: Acetaminophen 325 MG TABLET 650 MG PO (12:24)
[2021-01-14] MEDS: ondansetron HCL 4 MG/2 ML VIAL IVPUSH (12:26)
[2021-01-14] MEDS: 0.9 % Sodium Chloride 1,000 ML 999 ML IV (12:34)
[2021-01-14 13:01] LABS: MANUAL DIFF FLAG NO
[2021-01-14 13:08] LABS: Appearance Urine CLOUDY; Color Urine STRAW; Glucose Urine UA NEG (NEG); Leukocyte Esterase Urine TRACE (NEG); Nitrite Urine POS (NEG); Urine Blood NEG (NEG); Urine Ketones NEG (NEG); Urine Protein NEG (NEG-TRACE)
[2021-01-14 13:10] LABS: Basophils Percent Auto 0.3 % (0-2); Eosinophils Percent Auto 0.4 % (0-4); Hematocrit 35.9 % (37-47); Hemoglobin 11.8 g/dl (12.0-16.0); Imm Gran Abs Auto 0.03 X10*3/uL (0.00-0.03); Imm Gran Pct Auto 0.4 % (0.0-0.4); Lymphocytes Absolute Auto 0.9 X10*3/uL (1.2-4.9); Lymphocytes Percent Auto 11.6 % (20-40); Mean Corpuscular HGB Conc 32.9 g/dl (31.0-35.0); Mean Corpuscular Hemoglobin 28.1 pg (27.0-33.0); Mean Corpuscular Volume 85.5 fL (80-98); Mean Platelet Volume 11.6 fL (9.4-12.3); Monocytes Absolute Auto 0.4 X10*3/uL (0.1-1.2); Monocytes Percent Auto 4.7 % (2-11); Neutrophils Absolute Auto 6.3 X10*3/uL (2.0-8.3); Neutrophils Percent Auto 82.6 % (45-73); Platelet Count 189 X10*3/uL (160-400); Red Cell Distribution Width 13.4 % (11.0-16.0); White Blood Count 7.7 X10*3/uL (4.8-10.8)
[2021-01-14 13:16] LABS: INTERNATIONAL NORM RATIO 0.9 (0.9-1.1); Prothrombin Time 10.4 SEC (9.9-13.0)
[2021-01-14 13:18] LABS: Bacteria Urine 4+ /LPF; RBC Urine 0 /HPF (0)
[2021-01-14 13:22] LABS: COVID-19 Test Negative (Negative)
[2021-01-14 13:23] LABS: Alanine Aminotransferase 13 U/L (0-31); Albumin Level 3.5 g/dL (3.5-5.0); Alkaline Phosphatase 77 U/L (39-117); Anion Gap 12 (12-20); Aspartate Amino Transferase 20 U/L (5-31); Bilirubin Total 0.5 mg/dL (0.0-1.0); Blood Urea Nitrogen 14 mg/dL (9-16); Calcium 9.1 mg/dL (8.4-10.2); Carbon Dioxide 27 mmol/L (22-29); Chloride 107 mmol/L (96-108); Creatinine Clr Calc Pharmacy 80.5; Estimated Glomerular Filt Rate > 60; Glucose Random 109 mg/dL (60-115); Magnesium 2.1 mg/dL (1.6-2.6); Potassium 5.4 mmol/L (3.3-5.1); Sodium 141 mmol/L (135-145); Total Protein 7.6 g/dL (6.5-8.0)
[2021-01-14] MEDS: hydroCHLOROthiazide 12.5 MG TABLET PO (15:26)
[2021-01-14] MEDS: lisinopriL 10 MG TABLET PO ×2 (15:26→20:25)
[2021-01-14] MEDS: cefTRIAXone sodium 1 GM in 0.9 % Sodium Chloride 50 ML IV (15:26)
[2021-01-14] MEDS: iohexoL 350 MG/ML 100 ML INFUS..BTL IV (15:30)
--- NOTE | 2021-01-14 15:35 | PC.NURSE ---
Pt given warm blankets. BP elevated and provider is aware. Home dose of BP med given as pt states that she did not take today. IV ceftriaxone and IVF infusing at this time.
[2021-01-14 15:44] LABS: Anion Gap 11 (12-20); Blood Urea Nitrogen 12 mg/dL (9-16); Calcium 8.3 mg/dL (8.4-10.2); Carbon Dioxide 26 mmol/L (22-29); Chloride 107 mmol/L (96-108); Creatinine Clr Calc Pharmacy 89.8; Estimated Glomerular Filt Rate > 60; Glucose Random 91 mg/dL (60-115); Potassium 4.1 mmol/L (3.3-5.1); Sodium 140 mmol/L (135-145)
--- NOTE | 2021-01-14 19:16 | PM.IMHP ---
History of Present Illness Date of Service: 01/14/21 Chief Complaint: Dizziness 55-year-old female with a past medical history Of hypertension, hyperlipidemia, diabetes, anxiety, depression, vitamin-D deficiency, GERD, history of CVA, anemia, asthma, PATRICK presented to the hospital with a chief complaint of dizziness. Patient reports thattoday she has been having dizziness and unsteady; complains of generalized weakness, nausea, vomiting, headache.Denies Fall. Also complains of mild abdominal discomfort. Denies any blood in the vomitus. Denies any chest pain palpitations lightheadedness or dizziness. Denies any fever chills cough. reports burning urination for 3 days. ER course: Per ER team patient was complaining of dizziness and room spinning; unsteady gait; CT angio head and neck showed partially calcified atheromatous plaque causing 20% stenosis at the origin of right internal carotid artery; cervical carotid and vertebral arteries are otherwise patent; mild narrowing of the basilar artery and distal a 2 segment of azygos anterior cerebral artery otherwise no intracranial occlusion; noted small was ischemic disease-chronic; no evidence of infarction Also noted 2.1 centimetre nodular mass in the parotid gland; No acute intra-abdominal process, moderate constipation noted CT head showed no acute intracranial process . CBC and BMP within normal limits Urinalysis abnormal consistent with UTI-given antibiotics COVID-19 negative. Admitted to the hospital for further management [facility] Medical History (Updated 01/17/21 @ 13:02 by María Cooper MD) Anemia Asthma Cancer CVA (cerebral vascular accident) Depression Dyslipidemia Essential hypertension GERD (gastroesophageal reflux disease) History of degenerative joint disease Hx: UTI (urinary tract infection) Mass of right parotid gland Menopause Normocytic normochromic anemia Sleep apnea Tubular adenoma of colon Type 2 diabetes mellitus without complication, without long-term current use of insulin Vitamin D deficiency Family History Father Cancer Mother Cancer Myocardial infarction Family/Other Diabetes Surgical History History of carpal tunnel release History of total abdominal hysterectomy Hx of cholecystectomy Hx of colonoscopy Hx of endoscopy Hx of hand surgery Social History Household Members: Spouse Housing: Apartment Do you presently have visiting nurse or other home services: Yes Alcohol intake: never Patient Tobacco Use Status: Never used Tobacco e-Cigarette/Vaping Use: Never Used service: No Current occupational status: disabled Current occupation: rt handed Meds Allergies Allergy/AdvReac Type Severity Reaction Status Date / Time No Known Allergies Allergy Verified 01/12/21 21:55 [No Known Allergies*] Active Medications: Current Medications Generic Name Dose Route Start Last Admin Trade Name Freq PRN Reason Stop Dose Admin Acetaminophen 650 mg 01/14/21 19:11 Acetaminophen 325 Mg Tablet PO Q6H PRN Pain, Mild (Pain Scale 1-3) Dextrose 25 gm 01/14/21 19:11 Dextrose 50 % 25 Gm/50 Ml Vial IVPUSH Q15M PRN per Hypoglycemia Standing Ord. Protocol Ezetimibe 10 mg 01/15/21 09:00 Ezetimibe 10 Mg Tablet PO DAILY [facility] Gabapentin 100 mg 01/15/21 09:00 Gabapentin 100 Mg Capsule PO DAILY [facility] Glucose 15 gm 01/14/21 19:11 Glucose Gel 15 Gm Gel..Gram. PO Q15M PRN per Hypoglycemia Standing Ord. Protocol Ceftriaxone Sodium 1 gm/ 50 mls @ 100 mls/hr 01/14/21 19:15 Sodium Chloride IV Q24H [facility] Insulin Human Lispro 0 unit 01/14/21 21:00 Insulin Lispro 100 Unit/Ml 3 Ml Vial SUBCUT QIDACHS [facility] Protocol Melatonin 6 mg 01/14/21 19:11 Melatonin 3 Mg Tablet PO BEDTIME PRN Insomnia Pharmacy Consult 1 each 01/14/21 16:59 Consult Rx Perform Med Rec MISCELLANE ONCE PRN Consult order Pharmacy Consult 1 each 01/14/21 19:13 Consult Rx Other Drug Dosing MISCELLANE DAILY PRN Consult order Senna 17.2 mg 01/14/21 19:11 Sennosides 8.6 Mg Tablet PO BEDTIME PRN Constipation Sodium Chloride 3 ml 01/15/21 00:00 0.9 % Sodium Chloride Flush 3 Ml Syringe IVFLUSH QSHIFT [facility] Vitamin D 25 mcg 01/15/21 09:00 Cholecalciferol (Vitamin D3) 25 Mcg Tablet PO DAILY [facility] Home Medications Medication Instructions Recorded Confirmed Last Taken Type lisinopril 10 1 tab PO DAILY 06/14/20 01/14/21 01/13/21 History mg-hydrochlorothiazide 12.5 mg tablet gabapentin 100 mg capsule 100 mg PO DAILY cap 07/19/20 01/14/21 01/13/21 History dulaglutide 1.5 mg/0.5 mL 1.5 mg SUBCUT TH 01/14/21 01/14/21 01/09/21 History subcutaneous pen injector (Trulicity) metformin 500 mg tablet 1 tab PO DAILY 01/14/21 01/14/21 01/13/21 History Physical Exam Vital Signs and Narrative: Vital Signs: Last Vital Signs Temp 97 F 01/14/21 16:41 Pulse 61 01/14/21 16:41 Resp 20 01/14/21 16:41 BP 181/64 H 01/14/21 17:24 Pulse Ox 97 01/14/21 16:41 Body Mass Index 28.3 Gen: Appears be in no acute distress HEENT: NCAT, Moist mucosa. Pulmonary: Vesicular breath sounds, fair air entry CVS: Normal S1-S2 Abdomen: BS+, Soft, Nontender Extremities: Warm well perfused Neuro: Alert and awake. Grossly nonfocal Results Labs CBC and Chem 7: 01/15/21 06:20 01/15/21 06:20 Labs: Laboratory Results - last 24 hr 01/14/21 01/14/21 01/14/21 12:26 12:33 12:34 MCV 85.5 MCH 28.1 MCHC 32.9 RDW 13.4 Plt Count 189 MPV 11.6 Immature Gran % (Auto) 0.4 Neut % (Auto) 82.6 H Lymph % (Auto) 11.6 L Starke % (Auto) 4.7 Eos % (Auto) 0.4 Baso % (Auto) 0.3 Lymph # (Auto) 0.9 L Starke # (Auto) 0.4 Eos # (Auto) 0.0 Baso # (Auto) 0.0 Abs Immat Gran (auto) 0.03 Absolute Neuts (auto) 6.3 Absolute Nucleated RBC 0.000 Nucleated RBC % (auto) 0.0 PT INR APTT Anion Gap 12 Estim Creat Clear Calc 80.5 Estimated GFR > 60 Random Glucose 109 Calcium 9.1 D Magnesium 2.1 Total Bilirubin 0.5 AST 20 ALT 13 Alkaline Phosphatase 77 Total Protein 7.6 Albumin 3.5 Urine Color Urine Appearance Urine pH Ur Specific [place]ero Urine Protein Urine Glucose (UA) Urine Ketones Urine Blood Urine Nitrite Ur Leukocyte Esterase Urine RBC Urine WBC Ur Squamous Epith Cells Urine Bacteria COVID-19 ([facility]) Negative COVID-19 Clin Com See Note 01/14/21 01/14/21 01/14/21 12:34 12:37 15:05 MCV MCH MCHC RDW Plt Count MPV Immature Gran % (Auto) Neut % (Auto) Lymph % (Auto) Starke % (Auto) Eos % (Auto) Baso % (Auto) Lymph # (Auto) Starke # (Auto) Eos # (Auto) Baso # (Auto) Abs Immat Gran (auto) Absolute Neuts (auto) Absolute Nucleated RBC Nucleated RBC % (auto) PT 10.4 INR 0.9 APTT 34.0 Anion Gap 11 L Estim Creat Clear Calc 89.8 Estimated GFR > 60 Random Glucose 91 Calcium 8.3 L D Magnesium Total Bilirubin AST ALT Alkaline Phosphatase Total Protein Albumin Urine Color STRAW Urine Appearance CLOUDY Urine pH 6.0 Ur Specific Estero 1.020 Urine Protein NEG Urine Glucose (UA) NEG Urine Ketones NEG Urine Blood NEG Urine Nitrite POS H Ur Leukocyte Esterase TRACE H Urine RBC 0 Urine WBC 10-14 H Ur Squamous Epith Cells NONE Urine Bacteria 4+ COVID-19 ([facility]) COVID-19 Clin Com Imaging Radiologist's Impressions: Impressions Abdomen/Pelvis CT 01/14/21 11:58 IMPRESSION: No acute intra-abdominal process seen. Moderate constipation. Colonic diverticulosis without diverticulitis. Head CT 01/14/21 11:58 IMPRESSION: No acute intracranial process seen. Head/Neck CTA 01/14/21 11:58 IMPRESSION: Partially calcified atheromatous plaque causes 25% stenosis at the origin of the right internal carotid artery. Cervical carotid and vertebral arteries are otherwise patent. There is mild irregular narrowing involving the midportion of the basilar artery and the distal A2 segment of an azygos anterior cerebral artery. Otherwise no intracranial or vessel occlusion. There are scattered chronic small vessel ischemic changes within the periventricular white matter and katelin. No evidence of acute territorial infarct or hemorrhage. No abnormal intracranial mass or enhancement. There is a nodular mass within the right parotid gland that measures 2.1 cm in diameter. 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 This lesion appears to have gradually increased in size when compared to multiple previous examinations since the brain MRI from 01/21/2009. Assessment and Plan (1) UTI (urinary tract infection): Qualifiers: Hematuria presence: without hematuria Urinary tract infection type: acute cystitis Qualified Code(s): N30.00 - Acute cystitis without hematuria Status: Acute (2) Dizziness: Status: Acute (3) Type 2 diabetes mellitus without complication, without long-term current use of insulin: Status: Acute (4) Essential hypertension: Status: Acute 55-year-old female with a past medical history Of hypertension, hyperlipidemia, diabetes, anxiety, depression, vitamin-D deficiency, GERD, history of CVA with residual left side weakness , anemia, asthma, PATRICK presented to the hospital with a chief complaint of dizziness. Noted to have UTI. Admitted for further management. Dizziness: Patient reports room spinning. Meclizine trial. Fall precautions. PT/OT. Telemetry. Cycle cardiac enzymes. CT angio head and neck showed partially calcified atheromatous plaque causing 20% stenosis at the origin of right internal carotid artery; cervical carotid and vertebral arteries are otherwise patent; mild narrowing of the basilar artery and distal a 2 segment of azygos anterior cerebral artery otherwise no intracranial occlusion; noted small was ischemic disease-chronic; no evidence of infarction To follow up with neurology. Patient reports that she has prior history of CVA with residual left-sided weakness; mentions that she has bleeding inside her brain, and was asked to avoid any antiplatelet/anticoagulant agents. UTI: Continue ceftriaxone. Follow up cultures. Diabetes: Insulin sliding scale. Hypertension: Blood pressure is slightly elevated. Continue home lisinopril. Hydrochlorothiazide on hold for now. Parotid gland mass: CT scan showed 2.1 cm parotid mass. 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 oncology consult. DVT prophylaxis: SCD boots Code status: DNI only. pt strictly wants DNI; ok for CPR. Quality Stroke Does the patient have a stroke diagnosis?: No VTE Prior VTE?: No VTE Risk Level:: Medical - moderate - high VTE Device Contraindication: Treatment Not Indicated VTE Drug Contraindication: N/A - Med Ordered
[2021-01-14 20:11] LABS: Troponin-I High Sensitivity 3.5 ng/L (<3.5-17.0)
[2021-01-14 20:17] LABS: Troponin-I High Sensitivity 3.8 ng/L (<3.5-17.0)
[2021-01-15] VITALS (10 sets, daily range): BP systolic 115–184; BP diastolic 50–80; PULSE 62–94; RESP 14–20; TEMP 35.9–37.2; O2SAT 95–98
[2021-01-15 00:06] LABS: Glucose, Whole Blood 82 mg/dL (60-115)
[2021-01-15 06:48] LABS: MANUAL DIFF FLAG NO
[2021-01-15 06:54] LABS: Basophils Percent Auto 0.5 % (0-2); Eosinophils Absolute Auto 0.1 X10*3/uL (0.0-0.4); Hematocrit 34.8 % (37-47); Hemoglobin 11.4 g/dl (12.0-16.0); Imm Gran Abs Auto 0.02 X10*3/uL (0.00-0.03); Imm Gran Pct Auto 0.3 % (0.0-0.4); Lymphocytes Absolute Auto 1.2 X10*3/uL (1.2-4.9); Lymphocytes Percent Auto 20.4 % (20-40); Mean Corpuscular HGB Conc 32.8 g/dl (31.0-35.0); Mean Corpuscular Hemoglobin 27.6 pg (27.0-33.0); Mean Corpuscular Volume 84.3 fL (80-98); Mean Platelet Volume 11.5 fL (9.4-12.3); Monocytes Absolute Auto 0.5 X10*3/uL (0.1-1.2); Neutrophils Absolute Auto 4.1 X10*3/uL (2.0-8.3); Neutrophils Percent Auto 69.8 % (45-73); Platelet Count 169 X10*3/uL (160-400); Red Blood Count 4.13 X10*6/uL (4.20-5.50); Red Cell Distribution Width 13.5 % (11.0-16.0); White Blood Count 5.9 X10*3/uL (4.8-10.8)
[2021-01-15 07:19] LABS: Glucose, Whole Blood 95 mg/dL (60-115)
[2021-01-15 07:23] LABS: Anion Gap 13 (12-20); Blood Urea Nitrogen 13 mg/dL (9-16); Calcium 8.9 mg/dL (8.4-10.2); Carbon Dioxide 27 mmol/L (22-29); Chloride 106 mmol/L (96-108); Estimated Glomerular Filt Rate > 60; Glucose Random 103 mg/dL (60-115); Potassium 3.6 mmol/L (3.3-5.1); Sodium 142 mmol/L (135-145)
--- NOTE | 2021-01-15 07:24 | PC.NURSE ---
SITTING ON EDGE OF BED EATING BKFST
[2021-01-15] MEDS: Gabapentin 100 MG CAPSULE PO (09:12)
[2021-01-15] MEDS: Acetaminophen 325 MG TABLET 650 MG PO ×2 (09:12→17:43)
[2021-01-15] MEDS: Cholecalciferol (Vitamin D3) 25 MCG TABLET PO (09:12)
[2021-01-15] MEDS: lisinopriL 10 MG TABLET PO (09:12)
[2021-01-15] MEDS: Ezetimibe 10 MG TABLET PO (09:12)
--- NOTE | 2021-01-15 10:22 | PC.NURSE ---
call to floor to give report, no answer
--- NOTE | 2021-01-15 10:25 | MHC.CM.PN ---
pt lives c her boyfreind in their home. she reports that he helps her c some of her needs. 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 she uses a walker / cane as needed c ambulation. she denies the need for vna at dc. she will have her sister in law provide transportation at [place]. dc plan is home c process control board operator svcs through [employer]. cm to cont. to follow.
[2021-01-15 12:30] LABS: Glucose, Whole Blood 94 mg/dL (60-115)
--- NOTE | 2021-01-15 12:44 | P.CNNE_ITS ---
History of Present Illness Data of Consult Service Date: 01/15/21 Primary Care Provider: María Cooper MD HPI Reason for consult: Dizziness 55 years old woman with underlying history of left hemiparesis hypertension who came to hospital with dizziness and was diagnosed with UTI. Dizziness was causing sense of motion and nausea. Now she was feeling better. There was no change in her weakness. [facility] Past Medical History Medical History Anemia Asthma Cancer CVA (cerebral vascular accident) Depression Dyslipidemia Essential hypertension GERD (gastroesophageal reflux disease) History of degenerative joint disease Menopause Normocytic normochromic anemia Sleep apnea Tubular adenoma of colon Type 2 diabetes mellitus without complication, without long-term current use of insulin Vitamin D deficiency Family History Family History Father Cancer Mother Cancer Myocardial infarction Family/Other Diabetes Surgical History Surgical History History of carpal tunnel release History of total abdominal hysterectomy Hx of cholecystectomy Hx of colonoscopy Hx of endoscopy Hx of hand surgery Social History Social History Household Members: Spouse Housing: Apartment Do you presently have visiting nurse or other home services: Yes Alcohol intake: never Patient Tobacco Use Status: Never used Tobacco e-Cigarette/Vaping Use: Never Used Use of substances other than those prescribed or required for medical reasons: No Have you been hit, kicked, punched, or otherwise hurt by someone within the past year? If so, by whom?: No Do you feel safe in your current relationship?: Yes Is there a partner from a previous relationship who is making you feel unsafe now?: No Are you made to feel afraid or neglected: No Congregational Healthcare Practices: christianity Advance Directives: No Advance Directives Information Provided: No Do you have thoughts of harming others: None Do you have a plan to hurt others: No Plan Recently lost weight without trying: No Nutrition Risks: No Nutritional Risk Patient : No : No Poor oral hygiene: No service: No Current occupational status: disabled Current occupation: rt handed Meds Allergies Allergy/AdvReac Type Severity Reaction Status Date / Time No Known Allergies Allergy Verified 09/12/21 21:55 [No Known Allergies*] Active Medications: Current Medications Generic Name Dose Route Start Last Admin Trade Name Freq PRN Reason Stop Dose Admin Acetaminophen 650 mg 01/14/21 19:11 01/15/21 09:12 Acetaminophen 325 Mg Tablet PO 650 mg Q6H PRN Administration Pain, Mild (Pain Scale 1-3) Dextrose 25 gm 01/14/21 19:11 Dextrose 50 % 25 Gm/50 Ml Vial IVPUSH Q15M PRN per Hypoglycemia Standing Ord. Protocol Ezetimibe 10 mg 01/15/21 09:00 01/15/21 09:12 Ezetimibe 10 Mg Tablet PO 10 mg DAILY BUSTER Administration Gabapentin 100 mg 01/15/21 09:00 01/15/21 09:12 Gabapentin 100 Mg Capsule PO 100 mg DAILY BUSTER Administration Glucose 15 gm 01/14/21 19:11 Glucose Gel 15 Gm Gel..Gram. PO Q15M PRN per Hypoglycemia Standing Ord. Protocol Ceftriaxone Sodium 1 gm/ 50 mls @ 100 mls/hr 01/15/21 14:00 Sodium Chloride IV Q24H [facility] Insulin Human Lispro 0 unit 01/14/21 21:00 01/15/21 12:34 Insulin Lispro 100 Unit/Ml 3 Ml Vial SUBCUT Not Given QIDACHS [facility] Protocol Lisinopril 10 mg 01/14/21 19:15 01/15/21 09:12 Lisinopril 10 Mg Tablet PO 10 mg DAILY BUSTER Administration Protocol Meclizine HCl 25 mg 01/14/21 19:26 Meclizine Hcl 25 Mg Tablet PO Q8H PRN dizziness Melatonin 6 mg 01/14/21 19:11 Melatonin 3 Mg Tablet PO BEDTIME PRN Insomnia Pharmacy Consult 1 each 01/14/21 16:59 Consult Rx Perform Med Rec MISCELLANE ONCE PRN Consult order Pharmacy Consult 1 each 01/14/21 19:13 Consult Rx Other Drug Dosing MISCELLANE DAILY PRN Consult order Senna 17.2 mg 01/14/21 19:11 Sennosides 8.6 Mg Tablet PO BEDTIME PRN Constipation Sodium Chloride 3 ml 01/15/21 00:00 01/15/21 08:47 0.9 % Sodium Chloride Flush 3 Ml Syringe IVFLUSH Not Given QSHIFT [facility] Vitamin D 25 mcg 01/15/21 09:00 01/15/21 09:12 Cholecalciferol (Vitamin D3) 25 Mcg Tablet PO 25 mcg DAILY BUSTER Administration Home Medications Medication Instructions Recorded Confirmed Last Taken Type lisinopril 10 1 tab PO DAILY 06/14/20 01/14/21 01/13/21 History mg-hydrochlorothiazide 12.5 mg tablet gabapentin 100 mg capsule 100 mg PO DAILY cap 07/19/20 01/14/21 01/13/21 History dulaglutide 1.5 mg/0.5 mL 1.5 mg SUBCUT TH 01/14/21 01/14/21 01/09/21 History subcutaneous pen injector (Trulicity) metformin 500 mg tablet 1 tab PO DAILY 01/14/21 01/14/21 01/13/21 History Physical Exam Vital Signs: Vital Signs: Last Vital Signs Temp 98.3 F 01/15/21 06:31 Pulse 64 01/15/21 10:52 Resp 16 01/15/21 05:14 BP 145/68 H 01/15/21 10:52 Pulse Ox 98 01/15/21 06:31 Body Mass Index 28.3 Neuro: Other: She was alert and awake with normal spontaneity of speech flue ncy comprehension and affect. There was mild left hemiparesis. Axiugh-fl-xbba testing did not reveal any significant ataxia. Deep tendon reflexes were trace to absent. Results Labs CBC & Chem 7: 01/15/21 06:20 01/15/21 06:20 Labs: Short CBC 01/14/21 01/15/21 Range/Units 12:34 06:20 WBC 7.7 5.9 (4.8-10.8) X10*3/uL Hgb 11.8 L 11.4 L (12.0-16.0) g/dl Hct 35.9 L 34.8 L (37-47) % Plt Count 189 169 (160-400) X10*3/uL BMP 01/14/21 01/14/21 01/15/21 12:33 15:05 06:20 Sodium 141 140 142 Potassium 5.4 H D 4.1 D 3.6 Chloride 107 107 106 Carbon Dioxide 27 26 27 BUN 14 12 13 Creatinine 0.68 0.61 0.75 Calcium 9.1 D 8.3 L D 8.9 D Liver Function 01/14/21 Range/Units 12:33 Total Bilirubin 0.5 (0.0-1.0) mg/dL AST 20 (5-31) U/L ALT 13 (0-31) U/L Alkaline Phosphatase 77 (39-117) U/L Albumin 3.5 (3.5-5.0) g/dL Urine 01/14/21 Range/Units 12:37 Urine Color STRAW Urine Appearance CLOUDY Urine pH 6.0 (5.0-8.0) Ur Specific [place] 1.020 (1.005-1.025) Urine Protein NEG (NEG-TRACE) MG/DL Urine Glucose (UA) NEG (NEG) MG/DL Her CT a of brain and neck did not reveal any acute abnormality. Mild intracranial atherosclerotic disease was noted. Chronic bilateral basal ganglia area infarcts were noted. Assessment and Plan (1) Intracranial atherosclerosis: Status: Acute 55 years old woman with intracranial atherosclerotic disease and dizziness probably associated with UTI. Mainstay of management is anti-platelet agent, blood pressure control, sugar control and statin. Dizziness per se was likely not related to her vascular disease. Procedures Date of Service Date of Service: 01/15/21
[2021-01-15] MEDS: cefTRIAXone sodium 1 GM in 0.9 % Sodium Chloride 50 ML IV (13:34)
--- NOTE | 2021-01-15 15:30 | MHC.CLN ---
NUTRITION DIET CHANGED TO DIABETIC 1800 KCAL TO PROVIDE 34.1 KCAL/KG CMW).
--- NOTE | 2021-01-15 16:05 | P.PNIM_ITS ---
Subjective Subjective Date of Service: 01/15/21 Interval History: Vertigo has resolved Dysuria ongoing Review of Systems Review of Systems: Yes all other systems are reviewed and are negative Physical Exam Vital Signs: Vital Signs: Last Vital Signs Temp 96.6 F L 01/15/21 12:00 Pulse 94 01/15/21 12:00 Resp 20 01/15/21 12:00 BP 131/55 L 01/15/21 12:00 Pulse Ox 96 01/15/21 12:00 Body Mass Index 28.3 Gen: in no acute distress HEENT: sclera anicteric, moist mucus membranes Neck: supple Lungs: clear to auscultation bilaterally Heart: regular rate and rhythm, no murmurs Abd: soft, non-tender, non-distended Ext: no edema Skin: warm/well-perfused Neuro: alert and oriented x3, chronic L hemiparesis Psych: appropriate affect Objective Data Active Medications Acetaminophen (Acetaminophen 325 Mg Tablet) 650 mg PO Q6H PRN PRN Reason: Pain, Mild (Pain Scale 1-3) Last Admin: 01/15/21 09:12 Dose: 650 mg Documented by: YUSUF Dextrose (Dextrose 50 % 25 Gm/50 Ml Vial) 25 gm IVPUSH Q15M PRN; Protocol PRN Reason: per Hypoglycemia Standing Ord. Ezetimibe (Ezetimibe 10 Mg Tablet) 10 mg PO DAILY [facility] Last Admin: 01/15/21 09:12 Dose: 10 mg Documented by: YUSUF Gabapentin (Gabapentin 100 Mg Capsule) 100 mg PO DAILY [facility] Last Admin: 01/15/21 09:12 Dose: 100 mg Documented by: YUSUF Glucose (Glucose Gel 15 Gm Gel..Gram.) 15 gm PO Q15M PRN; Protocol PRN Reason: per Hypoglycemia Standing Ord. Ceftriaxone Sodium 1 gm/ (Sodium Chloride) 50 mls @ 100 mls/hr IV Q24H [facility] Last Infusion: 01/15/21 14:05 Dose: 0 mls/hr Documented by: SALEEM Insulin Human Lispro (Insulin Lispro 100 Unit/Ml 3 Ml Vial) 0 unit SUBCUT QIDACHS [facility]; Protocol Last Admin: 01/15/21 12:34 Dose: Not Given Documented by: SALEEM Non-Admin Reason: No Insulin Coverage Lisinopril (Lisinopril 10 Mg Tablet) 10 mg PO DAILY [facility]; Protocol Last Admin: 01/15/21 09:12 Dose: 10 mg Documented by: YUSUF Meclizine HCl (Meclizine Hcl 25 Mg Tablet) 25 mg PO Q8H PRN PRN Reason: dizziness Melatonin (Melatonin 3 Mg Tablet) 6 mg PO BEDTIME PRN PRN Reason: Insomnia Pharmacy Consult (Consult Rx Perform Med Rec) 1 each MISCELLANE ONCE PRN PRN Reason: Consult order Pharmacy Consult (Consult Rx Other Drug Dosing) 1 each MISCELLANE DAILY PRN PRN Reason: Consult order Senna (Sennosides 8.6 Mg Tablet) 17.2 mg PO BEDTIME PRN PRN Reason: Constipation Sodium Chloride (0.9 % Sodium Chloride Flush 3 Ml Syringe) 3 ml IVFLUSH QSHIFT [facility] Last Admin: 01/15/21 08:47 Dose: Not Given Documented by: YUSUF Non-Admin Reason: IV Running Vitamin D (Cholecalciferol (Vitamin D3) 25 Mcg Tablet) 25 mcg PO DAILY [facility] Last Admin: 01/15/21 09:12 Dose: 25 mcg Documented by: YUSUF Labs CBC & Chem 7: 01/15/21 06:20 01/15/21 06:20 Labs: Laboratory Results - last 24 hr 01/14/21 01/14/21 01/14/21 12:34 19:42 20:48 MCV MCH MCHC RDW Plt Count MPV Immature Gran % (Auto) Neut % (Auto) Lymph % (Auto) [place] % (Auto) Eos % (Auto) Baso % (Auto) Lymph # (Auto) [place] # (Auto) Eos # (Auto) Baso # (Auto) Abs Immat Gran (auto) Absolute Neuts (auto) Absolute Nucleated RBC Nucleated RBC % (auto) Anion Gap Estim Creat Clear Calc Estimated GFR POC Glucose 82 Random Glucose Calcium Troponin I High Sens 3.8 3.5 01/15/21 01/15/21 01/15/21 06:20 06:20 07:15 MCV 84.3 MCH 27.6 MCHC 32.8 RDW 13.5 Plt Count 169 MPV 11.5 Immature Gran % (Auto) 0.3 Neut % (Auto) 69.8 Lymph % (Auto) 20.4 [place] % (Auto) 8.0 Eos % (Auto) 1.0 Baso % (Auto) 0.5 Lymph # (Auto) 1.2 [place] # (Auto) 0.5 Eos # (Auto) 0.1 Baso # (Auto) 0.0 Abs Immat Gran (auto) 0.02 Absolute Neuts (auto) 4.1 Absolute Nucleated RBC 0.000 Nucleated RBC % (auto) 0.0 Anion Gap 13 Estim Creat Clear Calc 73.0 Estimated GFR > 60 POC Glucose 95 Random Glucose 103 Calcium 8.9 D Troponin I High Sens 01/15/21 12:21 MCV MCH MCHC RDW Plt Count MPV Immature Gran % (Auto) Neut % (Auto) Lymph % (Auto) [place] % (Auto) Eos % (Auto) Baso % (Auto) Lymph # (Auto) [place] # (Auto) Eos # (Auto) Baso # (Auto) Abs Immat Gran (auto) Absolute Neuts (auto) Absolute Nucleated RBC Nucleated RBC % (auto) Anion Gap Estim Creat Clear Calc Estimated GFR POC Glucose 94 Random Glucose Calcium Troponin I High Sens Assessment and Plan (1) UTI (urinary tract infection): Status: Acute Assessment and Plan: hospital d#2 55yo F with HTN, HLD, DM2, hx hemorrhagic CVA with L hemiparesis presented with dizziness/vertigo + dysuria # UTI - follow UCx, continue ceftriaxone d#2 # dizziness/vertigo - resolved, no further symptoms. prn meclizine + vestibular PT if recurs # parotid mass, suspicious - will need outpt ENT workup # hx CVA - per Neuro OK to start antiplatelet agent for secondary prevention; also start statin # HLD - continue ezetimibe, statin as above # HTN - continue lisinopril # DM2 - correction-dose lispro [MTF held] # VTE ppx - LMWH # dispo - anticipate home tomorrow Quality Stroke Does the patient have a stroke diagnosis?: No VTE Prior VTE?: No VTE Risk Level:: Medical - moderate - high VTE Device Contraindication: Treatment Not Indicated VTE Drug Contraindication: N/A - Med Ordered
[2021-01-15 17:33] LABS: Glucose, Whole Blood 83 mg/dL (60-115)
[2021-01-15] MEDS: 0.9 % Sodium Chloride Flush 3 ML SYRINGE IVFLUSH ×2 (17:40→22:12)
[2021-01-15 21:07] LABS: Glucose, Whole Blood 90 mg/dL (60-115)
[2021-01-15] MEDS: Atorvastatin Calcium 40 MG TABLET PO (22:12)
[2021-01-16] VITALS: BP 101/51; PULSE 71; RESP 16; TEMP 36.6; O2SAT 98
[2021-01-16 03:49] VITALS: BP 110/66; PULSE 66; RESP 14; TEMP 36.3; O2SAT 95
[2021-01-16 07:34] VITALS: BP 113/61; PULSE 62; RESP 18; TEMP 36.1; O2SAT 97
[2021-01-16 07:59] LABS: Glucose, Whole Blood 94 mg/dL (60-115)
[2021-01-16] MEDS: lisinopriL 10 MG TABLET PO (10:07)
[2021-01-16] MEDS: Acetaminophen 325 MG TABLET 650 MG PO (10:07)
[2021-01-16] MEDS: Ferrous Sulfate 324 MG TABLET.DR PO (10:07)
[2021-01-16] MEDS: Gabapentin 100 MG CAPSULE PO (10:07)
[2021-01-16] MEDS: Aspirin 81 MG TAB.CHEW PO (10:07)
[2021-01-16] MEDS: Cholecalciferol (Vitamin D3) 25 MCG TABLET PO (10:07)
[2021-01-16] MEDS: Ezetimibe 10 MG TABLET PO (10:08)
[2021-01-16] MEDS: 0.9 % Sodium Chloride Flush 3 ML SYRINGE IVFLUSH (10:08)
[2021-01-16 11:27] VITALS: BP 131/64; PULSE 63; RESP 18; TEMP 36; O2SAT 99
[2021-01-16 11:45] LABS: Glucose, Whole Blood 136 mg/dL (60-115)
--- NOTE | 2021-01-16 12:30 | PM.DS ---
DS: Providers Provider Date of Service: 01/16/21 Date of admission: 01/14/21 19:11 Date of discharge: 01/16/21 Primary care physician: María Cooper MD Consults: 01/14/21 19:28 Consult to Hematology / Oncology Routine Consulting Provider: Whitney Sanchez Reason for consultation: parotid mass 01/15/21 08:12 Consult to Neurology Routine Consulting Provider: [facility] Reason for consultation: dizziness/vertigo DS: Diagnosis Discharge Diagnosis (1) UTI (urinary tract infection): Status: Acute (2) Dizziness: Status: Acute (3) Parotid mass: Status: Acute (4) Intracranial atherosclerosis: Status: Acute (5) History of stroke: Status: Acute DS: Summary Hospital Course Hospital Course: from admission history and physical by hospitalist Jos Flores, 01/14/21: 55-year-old female with a past medical history Of hypertension, hyperlipidemia, diabetes, anxiety, depression, vitamin-D deficiency, GERD, history of CVA, anemia, asthma, PATRICK presented to the hospital with a chief complaint of dizziness. Patient reports thattoday she has been having dizziness and unsteady; complains of generalized weakness, nausea, vomiting, headache.Denies Fall. Also complains of mild abdominal discomfort.? Denies any blood in the vomitus. Denies any chest pain palpitations lightheadedness or dizziness. Denies any fever chills cough. reports burning urination for 3 days. ER course:? Per ER team patient was complaining of dizziness and room spinning; unsteady gait; CT angio head and neck showed partially calcified atheromatous plaque causing 20% stenosis at the origin of right internal carotid artery; cervical carotid and vertebral arteries are otherwise patent; mild narrowing of the basilar artery and distal a 2 segment of azygos anterior cerebral artery otherwise no intracranial occlusion; noted small was ischemic disease-chronic; no evidence of infarction Also noted 2.1 centimetre nodular mass in the parotid gland; No acute intra-abdominal process, moderate constipation noted ?CT head showed no acute intracranial process .? CBC and BMP within normal limits Urinalysis abnormal consistent with UTI-given antibiotics COVID-19 negative. Admitted to the hospital for further management The patient was admitted to the medical/surgical floor. Dizziness and vertigo resolved completely as the UTI was treated with IV ceftriaxone for 2 days. Urine culture grew Gram-negative rods; speciation and sensitivities are pending at the time of discharge. She was discharged home on cefuroxime for 5 more days. 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 Time Spent with Patient Time attestation: Total time spent providing and/or coordinating discharge services: Discharge coordination time: Greater than 30 minutes Quality: Stroke Does the patient have a stroke diagnosis?: No Physical Exam Vital Signs: Vital Signs: Last Vital Signs Temp 96.8 F 01/16/21 11:27 Pulse 63 01/16/21 11:27 Resp 18 01/16/21 11:27 BP 131/64 01/16/21 11:27 Pulse Ox 99 01/16/21 11:27 Body Mass Index 28.3 Gen: in no acute distress HEENT: sclera anicteric, moist mucus membranes Neck: supple Lungs: clear to auscultation bilaterally Heart: regular rate and rhythm, no murmurs Abd: soft, non-tender, non-distended Ext: no edema Skin: warm/well-perfused Neuro: alert and oriented x3, chronic L hemiparesis Psych: appropriate affect DS: Data Data Completed and Pending Completed studies during hospitalization [Text1]: Laboratory Results WBC 5.9 X10*3/uL (4.8-10.8) 01/15/21 06:20 RBC 4.13 X10*6/uL (4.20-5.50) L 01/15/21 06:20 Hgb 11.4 g/dl (12.0-16.0) L 01/15/21 06:20 Hct 34.8 % (37-47) L 01/15/21 06:20 MCV 84.3 fL (80-98) 01/15/21 06:20 MCH 27.6 pg (27.0-33.0) 01/15/21 06:20 MCHC 32.8 g/dl (31.0-35.0) 01/15/21 06:20 RDW 13.5 % (11.0-16.0) 01/15/21 06:20 Plt Count 169 X10*3/uL (160-400) 01/15/21 06:20 MPV 11.5 fL (9.4-12.3) 01/15/21 06:20 Immature Gran % (Auto) 0.3 % (0.0-0.4) 01/15/21 06:20 Neut % (Auto) 69.8 % (45-73) 01/15/21 06:20 Lymph % (Auto) 20.4 % (20-40) 01/15/21 06:20 [place] % (Auto) 8.0 % (2-11) 01/15/21 06:20 Eos % (Auto) 1.0 % (0-4) 01/15/21 06:20 Baso % (Auto) 0.5 % (0-2) 01/15/21 06:20 Lymph # (Auto) 1.2 X10*3/uL (1.2-4.9) 01/15/21 06:20 [place] # (Auto) 0.5 X10*3/uL (0.1-1.2) 01/15/21 06:20 Eos # (Auto) 0.1 X10*3/uL (0.0-0.4) 01/15/21 06:20 Baso # (Auto) 0.0 X10*3/uL (0.0-0.2) 01/15/21 06:20 Abs Immat Gran (auto) 0.02 X10*3/uL (0.00-0.03) 01/15/21 06:20 Absolute Neuts (auto) 4.1 X10*3/uL (2.0-8.3) 01/15/21 06:20 Absolute Nucleated RBC 0.000 X10*3/uL (0.0-0.012) 01/15/21 06:20 Nucleated RBC % (auto) 0.0 /100WBC (0.0-0.2) 01/15/21 06:20 PT 10.4 SEC (9.9-13.0) 01/14/21 12:34 INR 0.9 (0.9-1.1) 01/14/21 12:34 APTT 34.0 SEC (24.1-38.0) 01/14/21 12:34 Sodium 142 mmol/L (135-145) 01/15/21 06:20 Potassium 3.6 mmol/L (3.3-5.1) 01/15/21 06:20 Chloride 106 mmol/L (96-108) 01/15/21 06:20 Carbon Dioxide 27 mmol/L (22-29) 01/15/21 06:20 Anion Gap 13 (12-20) 01/15/21 06:20 BUN 13 mg/dL (9-16) 01/15/21 06:20 Creatinine 0.75 mg/dL (0.5-1.4) 01/15/21 06:20 Estim Creat Clear Calc 73.0 01/15/21 06:20 Estimated GFR > 60 01/15/21 06:20 POC Glucose 136 mg/dL (60-115) H 01/16/21 11:25 Random Glucose 103 mg/dL (60-115) 01/15/21 06:20 Calcium 8.9 mg/dL (8.4-10.2) D 01/15/21 06:20 Magnesium 2.1 mg/dL (1.6-2.6) 01/14/21 12:33 Total Bilirubin 0.5 mg/dL (0.0-1.0) 01/14/21 12:33 AST 20 U/L (5-31) 01/14/21 12:33 ALT 13 U/L (0-31) 01/14/21 12:33 Alkaline Phosphatase 77 U/L (39-117) 01/14/21 12:33 Troponin I High Sens 3.5 ng/L (<3.5-17.0) 01/14/21 19:42 Total Protein 7.6 g/dL (6.5-8.0) 01/14/21 12:33 Albumin 3.5 g/dL (3.5-5.0) 01/14/21 12:33 Urine Color STRAW 01/14/21 12:37 Urine Appearance CLOUDY 01/14/21 12:37 Urine pH 6.0 (5.0-8.0) 01/14/21 12:37 Ur Specific [place] 1.020 (1.005-1.025) 01/14/21 12:37 Urine Protein NEG MG/DL (NEG-TRACE) 01/14/21 12:37 Urine Glucose (UA) NEG MG/DL (NEG) 01/14/21 12:37 Urine Ketones NEG MG/DL (NEG) 01/14/21 12:37 Urine Blood NEG (NEG) 01/14/21 12:37 Urine Nitrite POS (NEG) H 01/14/21 12:37 Ur Leukocyte Esterase TRACE (NEG) H 01/14/21 12:37 Urine RBC 0 /HPF (0) 01/14/21 12:37 Urine WBC 10-14 /HPF (0-4) H 01/14/21 12:37 Ur Squamous Epith Cells NONE /LPF 01/14/21 12:37 Urine Bacteria 4+ /LPF 01/14/21 12:37 COVID-19 (OLGA LIDIA) Negative (Negative) 01/14/21 12:26 COVID-19 Clin Com See Note 01/14/21 12:26 Impressions Abdomen/Pelvis CT 01/14/21 11:58 IMPRESSION: No acute intra-abdominal process seen. Moderate constipation. Colonic diverticulosis without diverticulitis. Head CT 01/14/21 11:58 IMPRESSION: No acute intracranial process seen. Head/Neck CTA 01/14/21 11:58 IMPRESSION: Partially calcified atheromatous plaque causes 25% stenosis at the origin of the right internal carotid artery. Cervical carotid and vertebral arteries are otherwise patent. There is mild irregular narrowing involving the midportion of the basilar artery and the distal A2 segment of an azygos anterior cerebral artery. Otherwise no intracranial or vessel occlusion. There are scattered chronic small vessel ischemic changes within the periventricular white matter and [place]. No evidence of acute territorial infarct or hemorrhage. No abnormal intracranial mass or enhancement. There is a nodular mass within the right parotid gland that measures 2.1 cm in diameter. 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 This lesion appears to have gradually increased in size when compared to multiple previous examinations since the brain MRI from 01/21/2009. 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) Discharge Medications: New aspirin 81 mg Tablet,Chewable 81 mg PO DAILY Qty: 30 RF: 0 atorvastatin 40 mg Tablet 40 mg PO BEDTIME Qty: 30 RF: 0 cefuroxime axetil 500 mg tablet 500 mg PO BID Qty: 10 RF: 0 Continued (DME) FreeStyle Lite Strips Strip See Rx Instructions .ROUTE .MEDSUPPLY Qty: 300 RF: 1 ezetimibe [Zetia] 10 mg tablet 10 mg PO DAILY 90 Days Qty: 90 RF: 0 cholecalciferol (vitamin D3) [Vitamin D3] 25 mcg (1,000 unit) capsule 25 mcg PO DAILY Qty: 90 RF: 0 ibuprofen 600 mg tablet 600 mg PO BID PRN (Reason: for pain) Qty: 40 RF: 0 Trulicity 1.5 mg/0.5 mL pen injector 1.5 mg subcut TH RF: 0 metformin 500 mg tablet 1 tab PO DAILY RF: 0 lisinopril-hydrochlorothiazide 10-12.5 mg tablet 1 tab PO DAILY RF: 0 ferrous fumarate 324 mg (106 mg iron) tablet 324 mg PO DAILY Qty: 30 RF: 5 gabapentin 100 mg capsule 100 mg PO DAILY RF: 0 (DME) blood-glucose meter [FreeStyle Lite Meter] Kit See Rx Instructions .ROUTE .MEDSUPPLY Qty: 1 RF: 0 Discharge Orders: Discharge Order (Routine); Ordered 01/16/21 Ordered By: Svetlana Ugalde Diet: advance to usual diet and diabetic diet Activity on Discharge: As tolerated Stand Alone Forms: Patient Portal Discharge page Care Plan Goals: cure of urinary tract infection diagnosis and management of parotid gland tumor prevention of future strokes Health Concerns: dizziness, UTI, parotid gland tumor, prior stroke Plan of Treatment: take antibiotic, cefuroxime, 500 mg twice daily for 5 days referral to ENT for biopsy of parotid gland tumor Zeferino Mcclure MD [address] [place] [address], [address],?[id number] start aspirin 81mg daily and atorvastatin 40mg daily Assessment: as above Patient Instructions: Urinary Tract Infection in Women (DC)
--- NOTE | 2021-01-16 13:20 | MHC.CM.PN ---
PT CLEARED TO DC HOME WITH NO NEW SERVICES. PT TO SELF [employer] [employer] [facility] TO TRANSPORT
== END 2021-01-16 14:46 | disposition home or self-care (01) | DRG 71 ==
LOC: HO.ED 17:07 → HO.EDOVER 19:48 → HO.S3 01-15 07:30
PROVIDERS: Physician Assistant; Admitting Provider Hospitalist; Emergency Provider Internal Medicine; PCP Internal Medicine; Visit Provider Family Medicine
DX: I67.2 Cerebral atherosclerosis (principal); N39.0 Urinary tract infection, site not specified; B96.20 Unspecified Escherichia coli [E. coli] as the cause of diseases classified elsewhere; D37.030 Neoplasm of uncertain behavior of the parotid salivary glands; Z20.822 Contact with and (suspected) exposure to COVID-19; Z86.73 Personal history of transient ischemic attack (TIA), and cerebral infarction without residual deficits; Z79.1 Long term (current) use of non-steroidal anti-inflammatories (NSAID); Z79.82 Long term (current) use of aspirin; Z79.899 Other long term (current) drug therapy
CPT/HCPCS: 36415; 70450; 70496; 70498; 74177; 80048; 80053; 81001; 81003; 82947; 83735; 84484; 85025; 85610; 85730; 87086; 87088; 87186; 87635; 93005; 96361; 96365; 96375; 97161; 99285; J0696; J2405; Q9967

== ENCOUNTER 2021-01-28 17:21 | Emergency (ER) | payer OTHER, SELFPAY ==
--- NOTE | ~2021-01-28 | CT_ITS ---
EXAMINATION: CT ABDOMEN AND PELVIS WITH CONTRAST CLINICAL INFORMATION: Left lower quadrant abdominal pain. Constipation. COMPARISON: 01/14/2021 TECHNIQUE: Multidetector volumetric images were obtained from the superior aspect of the liver through the pubic symphysis following administration 85 mL of Omnipaque 350 intravenous contrast. Sagittal and coronal reformatted images were obtained on the technologist's workstation. Oral contrast: No This CT examination was performed using dose optimization techniques as appropriate, variously including the following: *Automated exposure control *Adjustment of mA and/or kV according to patient size (this includes techniques or standardized protocols for targeted exams where dose is matched to indication/reason for exam; i.e. extremities or head) *Use of iterative reconstruction technique DLP: 578 mGy-cm FINDINGS: LUNG BASES: The visualized lung bases are unremarkable. LIVER, GALLBLADDER, AND BILIARY TREE: The liver is normal in size, shape, and attenuation. No focal hepatic lesion or biliary ductal dilatation is present. Cholecystectomy. PANCREAS: Unremarkable. SPLEEN: Unremarkable. ADRENAL GLANDS: Unremarkable. KIDNEYS AND URETERS: The kidneys are normal in size, shape, and attenuation. No hydronephrosis, hydroureter, or calculi seen. No perinephric stranding. There is a prominent simple cyst at the midpole of the right kidney which measures 5.4 cm. No follow-up imaging recommended. BLADDER: Unremarkable. GASTROINTESTINAL TRACT: The stomach is unremarkable. Normal caliber small bowel. There is no obstruction. No colonic wall thickening or acute inflammatory change. There is colonic diverticulosis present. There is no diverticulitis. Mild diffuse colonic stool burden. No free air. No free fluid. ABDOMINAL WALL: No significant hernia is appreciated. LYMPH NODES: Normal. Multiple surgical clips are seen along the right iliac vasculature. VASCULAR: Normal caliber aorta with mild atherosclerotic calcification. Retroaortic left renal vein. PELVIC VISCERA: The uterus is not seen. No adnexal mass. OSSEOUS STRUCTURES: No acute or suspicious osseous abnormality. Degenerative change throughout the spine. CT/CT abdomen pelvis w con IMPRESSION: No acute findings in the abdomen or pelvis. Colonic diverticulosis without diverticulitis. Mild diffuse colonic stool burden.
[2021-01-28 17:51] VITALS: BP 150/90; PULSE 88; O2SAT 99
[2021-01-28 17:52] VITALS: BP 121/68; PULSE 72; RESP 16; TEMP 36.4; O2SAT 99; BMI 28.3
--- NOTE | 2021-01-28 20:29 | ED_ITS ---
HPI - General Adult General Chief complaint: Abdominal Pain Stated complaint: constipation Time Seen by Provider: 01/28/21 20:22 Source: patient Limitations: no limitations History of Present Illness HPI narrative: Patient states she has been constipated ever since she was discharged from the hospital approximately 10 days ago. She was hospitalized at that time for urinary tract infection and dizziness. Those symptoms improved after IV antibiotics and fluids. But since that time she has been constipated and has not been able to go to the bathroom at all over the last 3 days. She states she feels distended and is having significant abdominal pain especially left lower quadrant. She has been taking the antibiotics. She has never had anything like this before. No fevers or chills. Nausea without vomiting. No back pain or flank pain No urinary symptoms Related Data Home Medications Medication Instructions Recorded Confirmed gabapentin 100 mg capsule 100 mg PO DAILY cap 07/19/20 01/20/21 dulaglutide 1.5 mg/0.5 mL 1.5 mg SUBCUT TH 01/14/21 01/20/21 subcutaneous pen injector (Trulicity) metformin 500 mg tablet 1 tab PO DAILY 01/14/21 01/20/21 Previous Rx's Medication Instructions Recorded blood-glucose meter (FreeStyle #1 ea 07/19/20 Lite Meter) blood sugar diagnostic (FreeStyle #300 ea 10/08/20 Lite Strips) ezetimibe 10 mg tablet (Zetia) 10 mg PO DAILY 90 Days #90 tab 10/08/20 cholecalciferol (vitamin D3) 25 25 mcg PO DAILY #90 cap 10/13/20 mcg (1,000 unit) capsule (Vitamin D3) ibuprofen 600 mg tablet 600 mg PO BID PRN #40 tab 11/29/20 aspirin 81 mg chewable tablet 81 mg PO DAILY #30 tab 01/16/21 atorvastatin 40 mg tablet 40 mg PO BEDTIME #30 tab 01/16/21 cefuroxime axetil 500 mg tablet 500 mg PO BID #10 tab 01/16/21 lisinopril 10 1 tab PO DAILY #90 tab 01/20/21 mg-hydrochlorothiazide 12.5 mg tablet ondansetron HCl 4 mg tablet 4 mg PO Q6H #30 tab 01/20/21 (Zofran) cyanocobalamin (vitamin B-12) 1,000 mcg PO DAILY #90 tab 01/21/21 1,000 mcg tablet (Vitamin B-12) magnesium citrate 296 ml PO DAILY PRN #296 ml 01/28/21 Allergies Allergy/AdvReac Type Severity Reaction Status Date / Time No Known Allergies Allergy Verified 01/20/21 14:10 [No Known Allergies*] Review of Systems Constitutional: Constitutional: Denies fever(s) Cardiovascular: Cardiovascular: Denies chest pain Respiratory: Comments: No dyspnea Gastrointestinal: Comments: Diffuse mild tenderness and mild distention. Bowel sounds are normal. Tenderness is greatest in the left lower quadrant. No guarding or rebound Integumentary/Breasts: Comments: Skin is warm pink and dry PMFSH Past Medical History Medical History (Updated 01/28/21 @ 22:15 by Jamal Servin MD) Anemia Asthma Cancer CVA (cerebral vascular accident) Depression Dizziness Dyslipidemia Essential hypertension GERD (gastroesophageal reflux disease) History of degenerative joint disease Hx: UTI (urinary tract infection) Intracranial atherosclerosis Mass of right parotid gland Menopause Normocytic normochromic anemia Parotid mass Sleep apnea Tubular adenoma of colon Type 2 diabetes mellitus without complication, without long-term current use of insulin UTI (urinary tract infection) Vitamin D deficiency Surgical History (Updated 01/20/21 @ 14:14 by Nohelia Moses MD) History of carpal tunnel release History of total abdominal hysterectomy Hx of cholecystectomy Hx of colonoscopy Hx of endoscopy Hx of hand surgery Family History Family History Father Cancer Mother Cancer Myocardial infarction Family/Other Diabetes Social History Social History (Updated 01/20/21 @ 14:10 by Shauna Siddiqui) Household Members: Spouse Housing: Apartment Do you presently have visiting nurse or other home services: Yes Alcohol intake: current Alcohol intake frequency: holidays/special occasions only Patient Tobacco Use Status: Never used Tobacco e-Cigarette/Vaping Use: Never Used Advance Directives: No Patient : No service: No Current occupational status: disabled Current occupation: rt handed Physical Exam Vital Signs: Vital Signs: Last Vital Signs Temp 97.6 F 01/28/21 17:52 Pulse 72 01/28/21 17:52 Resp 16 01/28/21 17:52 BP 121/68 01/28/21 17:52 Pulse Ox 99 01/28/21 17:52 Body Mass Index 28.3 Const: Other: Awake and alert with normal vital signs in no acute distress Resp: Other: Clear and equal bilaterally without wheezes rales or rhonchi Cardio: Other: Regular rate and rhythm without murmurs rubs or gallops GI: Other: Soft with diffuse tenderness. Greatest in left lower quadrant. Normoactive bowel sounds. No guarding or rebound. Mild distension Skin: Other: Warm pink and dry Course Course Course Narrative: Differential diagnosis Constipation Fecal impaction Diverticulitis Urinary tract infection Colitis Will perform rectal exam for potential disimpaction. 8:47 p.m.. Rectal exam shows no significant amount of stool in the vault. Will order CT scan as she has left lower quadrant tenderness. Rule out diverticulitis 10:[address] scan shows diffuse stool but no evidence of diverticulitis or other significant intra-abdominal abnormality. Lab work is unremarkable. Will discharge patient home with prescription for magnesium citrate with a final diagnosis of abdominal pain secondary to constipation Medical Decision Making Lab Data Result diagrams: 01/28/21 21:29 01/28/21 21:29 Labs: Lab Results 01/28/21 01/28/21 Range/Units 21:29 21:29 WBC 11.6 H (4.8-10.8) X10*3/uL RBC 4.16 L (4.20-5.50) X10*6/uL Hgb 11.7 L (12.0-16.0) g/dl Hct 35.4 L (37-47) % MCV 85.1 (80-98) fL MCH 28.1 (27.0-33.0) pg MCHC 33.1 (31.0-35.0) g/dl RDW 13.3 (11.0-16.0) % Plt Count 178 (160-400) X10*3/uL MPV 11.2 (9.4-12.3) fL Immature Gran % (Auto) 0.2 (0.0-0.4) % Neut % (Auto) 73.3 H (45-73) % Lymph % (Auto) 18.2 L (20-40) % Emmet % (Auto) 7.2 (2-11) % Eos % (Auto) 0.8 (0-4) % Baso % (Auto) 0.3 (0-2) % Lymph # (Auto) 2.1 (1.2-4.9) X10*3/uL Emmet # (Auto) 0.8 (0.1-1.2) X10*3/uL Eos # (Auto) 0.1 (0.0-0.4) X10*3/uL Baso # (Auto) 0.0 (0.0-0.2) X10*3/uL Abs Immat Gran (auto) 0.02 (0.00-0.03) X10*3/uL Absolute Neuts (auto) 8.5 H (2.0-8.3) X10*3/uL Absolute Nucleated RBC 0.000 (0.0-0.012) X10*3/uL Nucleated RBC % (auto) 0.0 (0.0-0.2) /100WBC Sodium 140 (135-145) mmol/L Potassium 4.1 (3.3-5.1) mmol/L Chloride 104 (96-108) mmol/L Carbon Dioxide 28 (22-29) mmol/L Anion Gap 12 (12-20) BUN 19 H (9-16) mg/dL Creatinine 0.82 (0.5-1.4) mg/dL Estim Creat Clear Calc 66.7 Estimated GFR > 60 Random Glucose 105 (60-115) mg/dL Calcium 8.8 (8.4-10.2) mg/dL Total Bilirubin 0.4 (0.0-1.0) mg/dL AST 21 (5-31) U/L ALT 34 H (0-31) U/L Alkaline Phosphatase 75 (39-117) U/L Total Protein 7.2 (6.5-8.0) g/dL Albumin 3.7 (3.5-5.0) g/dL Discharge Plan Discharge Clinical Impression: Constipation Qualifiers: Constipation type: unspecified constipation type Qualified Code(s): K59.00 - C onstipation, unspecified Patient Disposition: Home, Self-Care Instructions: Constipation (ED) Prescriptions: New magnesium citrate Solution 296 ml PO DAILY PRN (Reason: constipation) Qty: 296 RF: 0 No Action (DME) FreeStyle Lite Strips Strip See Rx Instructions .ROUTE .MEDSUPPLY Qty: 300 RF: 1 ezetimibe [Zetia] 10 mg tablet 10 mg PO DAILY 90 Days Qty: 90 RF: 0 cholecalciferol (vitamin D3) [Vitamin D3] 25 mcg (1,000 unit) capsule 25 mcg PO DAILY Qty: 90 RF: 0 ibuprofen 600 mg tablet 600 mg PO BID PRN (Reason: for pain) Qty: 40 RF: 0 lisinopril-hydrochlorothiazide 10-12.5 mg tablet 1 tab PO DAILY Qty: 90 RF: 3 Trulicity 1.5 mg/0.5 mL pen injector 1.5 mg subcut TH RF: 0 metformin 500 mg tablet 1 tab PO DAILY RF: 0 aspirin 81 mg Tablet,Chewable 81 mg PO DAILY Qty: 30 RF: 0 atorvastatin 40 mg Tablet 40 mg PO BEDTIME Qty: 30 RF: 0 cefuroxime axetil 500 mg tablet 500 mg PO BID Qty: 10 RF: 0 ondansetron HCl [Zofran] 4 mg Tablet 4 mg PO Q6H Qty: 30 RF: 0 cyanocobalamin (vitamin B-12) [Vitamin B-12] 1,000 mcg Tablet 1,000 mcg PO DAILY Qty: 90 RF: 3 gabapentin 100 mg capsule 100 mg PO DAILY RF: 0 (DME) blood-glucose meter [FreeStyle Lite Meter] Kit See Rx Instructions .ROUTE .MEDSUPPLY Qty: 1 RF: 0
--- NOTE | 2021-01-28 20:57 | PC.NURSE ---
This RN accompanied pt for MD digital impaction. No impacted stool was found
[2021-01-28 21:33] LABS: MANUAL DIFF FLAG NO
[2021-01-28 21:35] LABS: Basophils Percent Auto 0.3 % (0-2); Eosinophils Absolute Auto 0.1 X10*3/uL (0.0-0.4); Eosinophils Percent Auto 0.8 % (0-4); Hematocrit 35.4 % (37-47); Hemoglobin 11.7 g/dl (12.0-16.0); Imm Gran Abs Auto 0.02 X10*3/uL (0.00-0.03); Imm Gran Pct Auto 0.2 % (0.0-0.4); Lymphocytes Absolute Auto 2.1 X10*3/uL (1.2-4.9); Lymphocytes Percent Auto 18.2 % (20-40); Mean Corpuscular HGB Conc 33.1 g/dl (31.0-35.0); Mean Corpuscular Hemoglobin 28.1 pg (27.0-33.0); Mean Corpuscular Volume 85.1 fL (80-98); Mean Platelet Volume 11.2 fL (9.4-12.3); Monocytes Absolute Auto 0.8 X10*3/uL (0.1-1.2); Monocytes Percent Auto 7.2 % (2-11); Neutrophils Absolute Auto 8.5 X10*3/uL (2.0-8.3); Neutrophils Percent Auto 73.3 % (45-73); Platelet Count 178 X10*3/uL (160-400); Red Blood Count 4.16 X10*6/uL (4.20-5.50); Red Cell Distribution Width 13.3 % (11.0-16.0); White Blood Count 11.6 X10*3/uL (4.8-10.8)
[2021-01-28] MEDS: iohexoL 350 MG/ML 100 ML INFUS..BTL IV (21:46)
[2021-01-28 21:58] LABS: Alanine Aminotransferase 34 U/L (0-31); Albumin Level 3.7 g/dL (3.5-5.0); Alkaline Phosphatase 75 U/L (39-117); Anion Gap 12 (12-20); Aspartate Amino Transferase 21 U/L (5-31); Bilirubin Total 0.4 mg/dL (0.0-1.0); Blood Urea Nitrogen 19 mg/dL (9-16); Calcium 8.8 mg/dL (8.4-10.2); Carbon Dioxide 28 mmol/L (22-29); Chloride 104 mmol/L (96-108); Creatinine Clr Calc Pharmacy 66.7; Estimated Glomerular Filt Rate > 60; Glucose Random 105 mg/dL (60-115); Potassium 4.1 mmol/L (3.3-5.1); Sodium 140 mmol/L (135-145); Total Protein 7.2 g/dL (6.5-8.0)
[2021-01-28 22:00] VITALS: BP 173/65; PULSE 83; RESP 16; O2SAT 99
[2021-01-28] MEDS: 0.9 % Sodium Chloride 500 ML IV (22:13)
[2021-01-28] MEDS: ondansetron HCL 4 MG/2 ML VIAL IVPUSH (22:13)
[2021-01-28] MEDS: Ketorolac Tromethamine 15 MG/ML VIAL IVPUSH (22:14)
[2021-01-28 22:26] LABS: Appearance Urine CLEAR; Color Urine STRAW; Glucose Urine UA NEG (NEG); Leukocyte Esterase Urine NEG (NEG); Nitrite Urine NEG (NEG); Specific Gravity - Urine <= 1.005 (1.005-1.025); Urine Blood NEG (NEG); Urine Ketones NEG (NEG); Urine Protein NEG (NEG-TRACE)
== END 2021-01-28 22:47 | disposition home or self-care (01) ==
PROVIDERS: Emergency Provider Emergency Medicine; PCP Internal Medicine
DX: K59.00 Constipation, unspecified (principal); R10.9 Unspecified abdominal pain; Z79.899 Other long term (current) drug therapy
CPT/HCPCS: 36415; 74177; 80053; 81003; 85025; 96361; 96374; 96375; 99284; J1885; J2405; Q9967

== ENCOUNTER 2021-01-31 14:23 | Outpatient (REF) | payer OTHER, SELFPAY ==
--- NOTE | ~2021-01-31 | MM_ITS ---
EXAMINATION: MM SCREENING DIGITAL BREAST TOMOSYNTHESIS, BILATERAL CLINICAL INFORMATION: Screening. Asymptomatic. The lifetime risk of breast cancer based on the Tyrer-Cuzick Model is 9%. COMPARISON: Mammography: 08/03/2018, 07/26/2017, 06/22/2016 TECHNIQUE: Digital breast tomosynthesis is performed in both the craniocaudal and mediolateral oblique views along with computer-aided detection (CAD). Synthesized 2D images are generated from the tomosynthesis. Additional left CC view is provided. FINDINGS: The breasts are almost entirely fatty (ACR BI-RADS breast composition Category a). There are no significant masses, abnormal calcifications, or other abnormalities. There are low axillary tail nodes again seen similar to prior studies. There is no developing density. No significant changes. MM/MM tomosynthesis screening BI IMPRESSION: No mammographic evidence of malignancy. ASSESSMENT: BI-RADS 2: Benign RECOMMENDATION: Routine annual mammography screening. This patient's information was entered into a reminder system with a target due date for their next mammogram.
== END 2021-01-31 14:24 | disposition home or self-care (01) ==
LOC: HO.MAMMO 14:23
PROVIDERS: Visit Provider Internal Medicine
DX: Z12.31 Encounter for screening mammogram for malignant neoplasm of breast (principal)
CPT/HCPCS: 77063; 77067

== ENCOUNTER → 2021-06-04 14:45 | Outpatient (BNVA) | payer OTHER, SELFPAY | PROVIDERS: PCP Internal Medicine; Visit Provider Physician Assistant | DX: M19.011 Primary osteoarthritis, right shoulder (principal) | CPT/HCPCS: 20610; 99212; J1020 ==

== ENCOUNTER → 2021-08-13 09:35 | Outpatient (BNVA) | payer OTHER, SELFPAY | PROVIDERS: PCP Internal Medicine; Visit Provider Nurse Practitioner Gerontology | DX: E11.319 Type 2 diabetes mellitus with unspecified diabetic retinopathy without macular edema (principal); E78.5 Hyperlipidemia, unspecified; E55.9 Vitamin D deficiency, unspecified; I10 Essential (primary) hypertension; Z79.84 Long term (current) use of oral hypoglycemic drugs; Z79.82 Long term (current) use of aspirin | CPT/HCPCS: 82947; 83036; 99212 ==

== ENCOUNTER 2021-09-10 16:08 | Emergency (ER) | payer OTHER, SELFPAY ==
[2021-09-10 16:54] VITALS: BP 146/72; PULSE 72; RESP 18; TEMP 36.3; O2SAT 99; BMI 29.0
[2021-09-10] MEDS: Diphth,Pertus(ACell),Tet Adult 0.5 ML SYRINGE IM (17:36)
[2021-09-10] MEDS: Lidocaine HCl 2 % MPF 5 ML VIAL INFILTRATI (17:37)
--- NOTE | 2021-09-10 17:57 | ED_ITS ---
HPI - Wound/Laceration General Chief Complaint: Wound/Laceration Stated Complaint: r arm laceration Time Seen by Provider: 09/10/21 17:17 Source: patient Mode of arrival: ambulatory History of Present Illness HPI narrative: 56-year-old female with a past medical history of anemia, asthma, CVA, depression, diabetes, hyperlipidemia, hypertension, presenting to the ED complaining of laceration to right upper arm s/p hitting arm on metal around 13:00. Denies injury to the area, numbness, tingling, weakness. Tetanus unknown Onset (ago): hour(s) Related Data Home Medications Medication Instructions Recorded Confirmed gabapentin 100 mg capsule 100 mg PO DAILY cap 07/19/20 08/13/21 Previous Rx's Medication Instructions Recorded blood-glucose meter (FreeStyle #1 ea 07/19/20 Lite Meter) cholecalciferol (vitamin D3) 25 25 mcg PO DAILY #90 cap 10/13/20 mcg (1,000 unit) capsule (Vitamin D3) aspirin 81 mg chewable tablet 81 mg PO DAILY #30 tab 01/16/21 atorvastatin 40 mg tablet 40 mg PO BEDTIME #30 tab 01/16/21 lisinopril 10 1 tab PO DAILY #90 tab 01/20/21 mg-hydrochlorothiazide 12.5 mg tablet ondansetron HCl 4 mg tablet 4 mg PO Q6H #30 tab 01/20/21 (Zofran) cyanocobalamin (vitamin B-12) 1,000 mcg PO DAILY #90 tab 01/21/21 1,000 mcg tablet (Vitamin B-12) magnesium citrate 296 ml PO DAILY PRN #296 ml 01/28/21 ezetimibe 10 mg tablet 10 mg PO DAILY #30 tab 04/23/21 blood sugar diagnostic (FreeStyle #300 ea 07/22/21 Lite Strips) ibuprofen 600 mg tablet 600 mg PO BID PRN #40 tab 07/24/21 lancing device #1 ea 08/13/21 metformin 500 mg tablet 500 mg PO DAILY #90 tab 08/13/21 sitagliptin 100 mg tablet (Januvia) 100 mg PO DAILY #90 tab 08/13/21 cephalexin 500 mg capsule 500 mg PO QID 7 Days #28 cap 09/10/21 Allergies Allergy/AdvReac Type Severity Reaction Status Date / Time No Known Allergies Allergy Verified 06/17/21 09:20 [No Known Allergies*] Review of Systems Review of Systems: Constitutional: No Fever, No Chills ENT/Mouth: No Ear Pain, No Nasal Congestion, No sore throat, No Rhinorrhea, No Swallowing Difficulty Cardiovascular: No Chest Pain, No SOB Respiratory: No Cough, No Sputum Gastrointestinal: No Nausea, No Vomiting, No Abdominal pain Genitourinary: No Dysuria, No Flank Pain Musculoskeletal: No joint pain, No Myalgias, No Joint Swelling Skin: + laceration, No rash Neuro: No Weakness, No Numbness, No Paresthesias Yes all other systems are reviewed and are negative [facility] Past Medical History Attestation statement: The following information was validated with the patient. Medical History Anemia Asthma Cancer CVA (cerebral vascular accident) Depression Diabetes with retinopathy Dizziness Dyslipidemia Essential hypertension GERD (gastroesophageal reflux disease) History of degenerative joint disease Hx: UTI (urinary tract infection) Intracranial atherosclerosis Mass of right parotid gland Menopause Normocytic normochromic anemia Parotid mass Sleep apnea Tubular adenoma of colon Type 2 diabetes mellitus without complication, without long-term current use of insulin UTI (urinary tract infection) Vitamin D deficiency Surgical History History of carpal tunnel release History of total abdominal hysterectomy Hx of cholecystectomy Hx of colonoscopy Hx of endoscopy Hx of hand surgery Family History Family History Father Cancer Mother Cancer Myocardial infarction Family/Other Diabetes Social History Social History Household Members: Spouse Housing: Apartment Do you presently have visiting nurse or other home services: Yes Alcohol intake: current Alcohol intake frequency: holidays/special occasions only Patient Tobacco Use Status: Never used Tobacco e-Cigarette/Vaping Use: Never Used Advance Directives: Yes Advance Directives on File: Yes Advance Directives Date on File: 01/20/21 service: No Current occupational status: disabled Current occupation: rt handed Physical Exam Vital Signs: Vital Signs: Last Vital Signs Temp 97.3 F 09/10/21 16:54 Pulse 72 09/10/21 16:54 Resp 18 09/10/21 16:54 BP 146/72 H 09/10/21 16:54 Pulse Ox 99 09/10/21 16:54 BMI result Body Mass Index 29.0 Const: General: cooperative, healthy appearing and no acute distress Orientation/consciousness: patient oriented x3 Limitations: no limitations HEENT: Head: Yes normal to inspection and Yes atraumatic Ears: hearing grossly normal bilaterally General nose exam: Normal external nose present Face and sinus: Yes normal facial exam Eyes: General: appearance normal, both eyes and all related structures EOM: EOMs intact bilaterally Neck: Neck: Yes normal visual inspection and Yes no meningeal signs Resp: Effort & Inspection: normal respiratory effort and no respiratory distress Cardio: Rate: regular rate Skin: Other: + 3.5 linear superficial laceration noted proximal to right elbow Rashes: no rashes Neuro: General: patient oriented x3, tone normal and no meningeal signs Gait exam (Neuro): Normal gait present Extrem: General: Yes normal to inspection MDM - Wound/Laceration MDM Narrative Medical decision making narrative: 56-year-old female with a past medical history of anemia, asthma, CVA, depression, diabetes, hyperlipidemia, hypertension, presenting to the ED complaining of laceration to right upper arm s/p hitting arm on metal around 13:00. On exam vital signs stable, NAD/nontoxic appearing on physical exam as above, laceration noted to right arm, will repair with sutures and update tetanus as well as give prophylactic antibiotics Differential Diagnosis Differential diagnosis: Likely laceration Medical Records Attestation: I reviewed the patient's medical records. Lab Data Attestation: I reviewed the patient's lab results. Procedures Laceration Laceration 1: Site: upper extremity Side (If applicable): right Size (cm): 3.5 Description: linear Depth: simple, single layer Local Anesthetic: lidocaine 1% Amount of anesthesia used (mL): 3 Pre-repair: wound explored Skin layer closed with: nylon Size (cm): 4-0 Number of sutures: 5 Technique: simple, interrupted Discharge Plan Discharge Clinical Impression: Laceration Patient Disposition: Home, Self-Care Instructions: Laceration (DC) Additional Instructions: Your laceration was repaired today in the emergency department Please return in 5-7 days for suture removal. Keflex as antibiotic please take as prescribed. If area begins look infected, is red, there is drainage or you have fever please return to the emergency department sooner. Apply bacitracin and Neosporin at home as needed Prescriptions: New cephalexin 500 mg capsule 500 mg PO QID 7 Days Qty: 28 0RF No Action cholecalciferol (vitamin D3) [Vitamin D3] 25 mcg (1,000 unit) capsule 25 mcg PO DAILY Qty: 90 0RF lisinopril-hydrochlorothiazide 10-12.5 mg tablet 1 tab PO DAILY Qty: 90 3RF ezetimibe 10 mg tablet 10 mg PO DAILY Qty: 30 0RF Rx Instructions: NEED SCHEDULED APPOINTMENT FOR FUTURE REFILLS (DME) FreeStyle Lite Strips Strip See Rx Instructions .ROUTE .MEDSUPPLY Qty: 300 1RF Rx Instructions: use 1 strip three times a day ibuprofen 600 mg tablet 600 mg PO BID PRN (Reason: for pain) Qty: 40 0RF aspirin 81 mg Tablet,Chewable 81 mg PO DAILY Qty: 30 0RF atorvastatin 40 mg Tablet 40 mg PO BEDTIME Qty: 30 0RF ondansetron HCl [Zofran] 4 mg Tablet 4 mg PO Q6H Qty: 30 0RF cyanocobalamin (vitamin B-12) [Vitamin B-12] 1,000 mcg Tablet 1,000 mcg PO DAILY Qty: 90 3RF magnesium citrate Solution 296 ml PO DAILY PRN (Reason: constipation) Qty: 296 0RF gabapentin 100 mg capsule 100 mg PO DAILY 0RF (DME) blood-glucose meter [FreeStyle Lite Meter] Kit See Rx Instructions .ROUTE .MEDSUPPLY Qty: 1 0RF Rx Instructions: Three times a day metformin 500 mg tablet 500 mg PO DAILY Qty: 90 1RF Januvia 100 mg tablet 100 mg PO DAILY Qty: 90 1RF (DME) lancing device Misc See Rx Instructions .ROUTE .MEDSUPPLY Qty: 1 0RF Rx Instructions: As directed Referrals: ED Physician,Generic [Emergency Provider] - 1 week (Return in 5-7 days for suture removal)
[2021-09-10] MEDS: Acetaminophen 325 MG TABLET 650 MG PO (18:01)
== END 2021-09-10 18:20 | disposition home or self-care (01) ==
PROVIDERS: Emergency Provider Internal Medicine; PCP Internal Medicine
DX: S41.111A Laceration without foreign body of right upper arm, initial encounter (principal); S40.811A Abrasion of right upper arm, initial encounter; W26.9XXA Contact with unspecified sharp object(s), initial encounter; Y93.9 Activity, unspecified; Y92.9 Unspecified place or not applicable; Y99.9 Unspecified external cause status; Z79.899 Other long term (current) drug therapy
CPT/HCPCS: 12002; 90471; 90715; 99283; 99284

== ENCOUNTER 2021-09-19 09:42 | Emergency (ER) | payer OTHER, SELFPAY ==
[2021-09-19 10:08] VITALS: BP 178/89; PULSE 66; RESP 18; TEMP 36.5; O2SAT 100; BMI 27.3
--- NOTE | 2021-09-19 10:42 | ED.RECABL ---
HPI - Recheck/Abnormal Lab/Rx General Chief Complaint: Skin/Abscess/Foreign Body Stated Complaint: Suture removal Time Seen by Provider: 09/19/21 10:12 Source: patient Mode of arrival: ambulatory Limitations: no limitations History of Present Illness MD complaint: suture/staple removal Initial visit (ago): day(s) (9) Initial visit for: laceration Returns today for: staple/stitch removal Symptoms since prior visit: no new symptoms Context: planned re-check Associated symptoms: none Treatments prior to arrival: other (Taking the antibiotics as prescribed and she was putting topical antibiotic ointment multiple times a day per patient) Related Data Home Medications Medication Instructions Recorded Confirmed gabapentin 100 mg capsule 100 mg PO DAILY cap 07/19/20 08/13/21 Previous Rx's Medication Instructions Recorded blood-glucose meter (FreeStyle #1 ea 07/19/20 Lite Meter) cholecalciferol (vitamin D3) 25 25 mcg PO DAILY #90 cap 10/13/20 mcg (1,000 unit) capsule (Vitamin D3) aspirin 81 mg chewable tablet 81 mg PO DAILY #30 tab 01/16/21 atorvastatin 40 mg tablet 40 mg PO BEDTIME #30 tab 01/16/21 lisinopril 10 1 tab PO DAILY #90 tab 01/20/21 mg-hydrochlorothiazide 12.5 mg tablet ondansetron HCl 4 mg tablet 4 mg PO Q6H #30 tab 01/20/21 (Zofran) cyanocobalamin (vitamin B-12) 1,000 mcg PO DAILY #90 tab 01/21/21 1,000 mcg tablet (Vitamin B-12) magnesium citrate 296 ml PO DAILY PRN #296 ml 01/28/21 ezetimibe 10 mg tablet 10 mg PO DAILY #30 tab 04/23/21 blood sugar diagnostic (FreeStyle #300 ea 07/22/21 Lite Strips) ibuprofen 600 mg tablet 600 mg PO BID PRN #40 tab 07/24/21 lancing device #1 ea 08/13/21 metformin 500 mg tablet 500 mg PO DAILY #90 tab 08/13/21 sitagliptin 100 mg tablet (Januvia) 100 mg PO DAILY #90 tab 08/13/21 cephalexin 500 mg capsule 500 mg PO QID 7 Days #28 cap 09/10/21 Allergies Allergy/AdvReac Type Severity Reaction Status Date / Time No Known Allergies Allergy Verified 06/17/21 09:20 [No Known Allergies*] Review of Systems Review of Systems: Constitutional : No Fever, No Chills, Cardiovascular : No Chest Pain, No SOB Respiratory : No Dyspnea Gastrointestinal : No abdominal pain Musculoskeletal : No Joint Swelling Skin : positive healing skin laceration, No Foreign bodies, No rash, No surrounding erythema Neuro : No Weakness, No Numbness/tingling Psych : No SI/HI/thoughts of self injury Yes all other systems are reviewed and are negative [facility] Past Medical History Attestation statement: The following information was validated with the patient. Medical History Anemia Asthma Cancer CVA (cerebral vascular accident) Depression Diabetes with retinopathy Dizziness Dyslipidemia Essential hypertension GERD (gastroesophageal reflux disease) History of degenerative joint disease Hx: UTI (urinary tract infection) Intracranial atherosclerosis Mass of right parotid gland Menopause Normocytic normochromic anemia Parotid mass Sleep apnea Tubular adenoma of colon Type 2 diabetes mellitus without complication, without long-term current use of insulin UTI (urinary tract infection) Vitamin D deficiency Surgical History History of carpal tunnel release History of total abdominal hysterectomy Hx of cholecystectomy Hx of colonoscopy Hx of endoscopy Hx of hand surgery Family History Family History Father Cancer Mother Cancer Myocardial infarction Family/Other Diabetes Social History Social History Household Members: Spouse Housing: Apartment Do you presently have visiting nurse or other home services: Yes Alcohol intake: current Alcohol intake frequency: holidays/special occasions only Patient Tobacco Use Status: Never used Tobacco e-Cigarette/Vaping Use: Never Used Advance Directives: Yes Advance Directives on File: Yes Advance Directives Date on File: 01/20/21 service: No Current occupational status: disabled Current occupation: rt handed Physical Exam Vital Signs: Vital Signs: Last Vital Signs Temp 97.7 F 09/19/21 10:08 Pulse 66 09/19/21 10:08 Resp 18 09/19/21 10:08 BP 178/89 H 09/19/21 10:08 Pulse Ox 100 09/19/21 10:08 BMI result Body Mass Index 27.3 vital signs have been reviewed as normal and appeared to be correct. Blood pressure normal Heart rate normal. Respiration rate normal. Temperature normal. Oxygen saturation normal. Appearance: Alert. Oriented X3. No acute distress. Head: Normal external exam. Normocephalic. Atraumatic. Eyes: PERRLA. EOMI. Conjunctiva and sclera normal. Eyelids normal. ENT: Pharynx normal. Uvula midline. Moist mucous membranes. Neck: Normal inspection. Neck supple. FROM. CVS: Normal heart rate and rhythm. Respiratory: No respiratory distress. Painless inspiration. Skin: Skin warm and dry. Normal skin color. Normal skin turgor. Patient with well healing laceration to right elbow with [address] no surrounding erythema/streaking/induration/fluctuance noted. No rashes/lesions noted. Extremities: Extremities exhibit normal range of motion. Extremities nontender. Neuro: Oriented X 3. No motor deficit. No sensory deficit. Reflexes normal. Normal steady gait. No focal neuro deficits noted. Vascular: + radial pulses/+ 2 distal pedal pulses/+2 dorsalis pedis b/l. Normal cap refill. No cyanosis noted to upper extremity nails and lower extremity toes nails. Course Course Course Narrative: Patient now status post suture removal with 5 sutures removed. Patient tolerated procedure well. Mild dehiscence therefore 3 Steri-Strips placed. No signs of infection. Will DC home with instructions to continue taking her previously prescribed medications as previously prescribed and to return if any new or worsening symptoms. Patient understands agrees with this plan. MDM - Recheck/Abnormal Lab/Rx Medical Records Attestation: I reviewed the patient's medical records. Discharge Plan Discharge Clinical Impression: Visit for suture removal, Dehiscence of laceration wound Patient Disposition: Home, Self-Care Instructions: Stitches Removal (ED) Prescriptions: No Action cholecalciferol (vitamin D3) [Vitamin D3] 25 mcg (1,000 unit) capsule 25 mcg PO DAILY Qty: 90 0RF lisinopril-hydrochlorothiazide 10-12.5 mg tablet 1 tab PO DAILY Qty: 90 3RF ezetimibe 10 mg tablet 10 mg PO DAILY Qty: 30 0RF Rx Instructions: NEED SCHEDULED APPOINTMENT FOR FUTURE REFILLS (DME) FreeStyle Lite Strips Strip See Rx Instructions .ROUTE .MEDSUPPLY Qty: 300 1RF Rx Instructions: use 1 strip three times a day ibuprofen 600 mg tablet 600 mg PO BID PRN (Reason: for pain) Qty: 40 0RF aspirin 81 mg Tablet,Chewable 81 mg PO DAILY Qty: 30 0RF atorvastatin 40 mg Tablet 40 mg PO BEDTIME Qty: 30 0RF ondansetron HCl [Zofran] 4 mg Tablet 4 mg PO Q6H Qty: 30 0RF cyanocobalamin (vitamin B-12) [Vitamin B-12] 1,000 mcg Tablet 1,000 mcg PO DAILY Qty: 90 3RF magnesium citrate Solution 296 ml PO DAILY PRN (Reason: constipation) Qty: 296 0RF cephalexin 500 mg capsule 500 mg PO QID 7 Days Qty: 28 0RF gabapentin 100 mg capsule 100 mg PO DAILY 0RF (DME) blood-glucose meter [FreeStyle Lite Meter] Kit See Rx Instructions .ROUTE .MEDSUPPLY Qty: 1 0RF Rx Instructions: Three times a day metformin 500 mg tablet 500 mg PO DAILY Qty: 90 1RF Januvia 100 mg tablet 100 mg PO DAILY Qty: 90 1RF (DME) lancing device Misc See Rx Instructions .ROUTE .MEDSUPPLY Qty: 1 0RF Rx Instructions: As directed Referrals: María Cooper MD [Primary Care Provider] - 2 days Discharge Date/Time: 09/19/21 10:55
== END 2021-09-19 10:55 | disposition home or self-care (01) ==
PROVIDERS: Emergency Provider Emergency Medicine Emergency Medical Services; PCP Internal Medicine
DX: T81.33XA Disruption of traumatic injury wound repair, initial encounter (principal); Y84.8 Other medical procedures as the cause of abnormal reaction of the patient, or of later complication, without mention of misadventure at the time of the procedure; Y92.9 Unspecified place or not applicable; I10 Essential (primary) hypertension; E11.9 Type 2 diabetes mellitus without complications; J45.909 Unspecified asthma, uncomplicated; Z86.73 Personal history of transient ischemic attack (TIA), and cerebral infarction without residual deficits
CPT/HCPCS: 99283

== ENCOUNTER 2021-12-22 12:33 | Inpatient (IN) | payer OTHER, SELFPAY ==
--- NOTE | ~2021-12-22 | CT_ITS ---
EXAMINATION: CT ANGIOGRAPHY OF THE HEAD AND NECK CLINICAL INFORMATION: Left-sided weakness. COMPARISON: CTA dated 01/14/2021. TECHNIQUE: Test bolus sequences followed by intravenous administration 70 mL of Omnipaque 350. Helical imaging was performed in the axial plane from the mediastinum to the skull vertex. Delayed postcontrast imaging of the head was also performed. The data was processed at the special procedure technologist's workstation for generation of MIP sequences. Three-dimensional volume rendered reformatted images were also generated at an offline 3-D workstation. Stenoses are assessed in accordance with NASCET criteria unless otherwise indicated. This CT examination was performed using dose optimization techniques as appropriate, variously including the following: *Automated exposure control *Adjustment of mA and/or kV according to patient size (this includes techniques or standardized protocols for targeted exams where dose is matched to indication/reason for exam; i.e. extremities or head) *Use of iterative reconstruction technique DLP: 1341 mGy-cm. FINDINGS: CTA neck: The imaged aortic arch and origins of the great vessels are patent with mild atherosclerotic wall calcifications. There are atherosclerotic wall calcifications in the distal common carotid arteries and at the carotid bifurcations, stable compared to prior imaging. No significant stenosis evident on the left side. Mild intraluminal narrowing of the distal right common carotid artery is stable. The remainder of the cervical internal carotid arteries are otherwise normal. The vertebral arteries opacify normally and are of normal caliber. A subcentimeter nodule versus cyst in the right thyroid lobe remains stable. A homogeneous soft tissue mass in the right parotid gland is stable, measuring 2.2 x 3 cm in size. The imaged portions of the lungs demonstrate mild subsegmental atelectasis. Multilevel cervical spondylosis with anterior endplate spurring again evident. CTA head: The intradural vertebral arteries are normal. Multifocal mild luminal irregularities and stenoses again visible in the mid basilar artery. The posterior cerebral arteries are widely patent. There are stable moderate atherosclerotic wall calcifications in the intracranial internal carotid arteries without high-grade stenosis. Unchanged [id number] stenosis again visible in the A2 segment of the azygous JOHN. Mild stenosis in the left M1 segment remains stable. The right MCA vasculature appears normal. The venous sinuses opacify normally. CT/CT angio head neck stroke IMPRESSION: Stable atheromatous disease in the cervical and intracranial vasculature. No new significant stenoses or vessel occlusions. 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 Imaging findings reported to Dr. Koo at 1:30 PM on 12/22/2021.
--- NOTE | ~2021-12-22 | CT_ITS ---
EXAMINATION: CT HEAD WITHOUT CONTRAST (STROKE PROTOCOL) CLINICAL INFORMATION: Stroke protocol. Left-sided weakness COMPARISON: CT brain 01/14/2021 TECHNIQUE: Contiguous axial imaging was performed from the skull base to vertex without intravenous administration of contrast. This CT examination was performed using dose optimization techniques as appropriate, variously including the following: *Automated exposure control *Adjustment of mA and/or kV according to patient size (this includes techniques or standardized protocols for targeted exams where dose is matched to indication/reason for exam; i.e. extremities or head) *Use of iterative reconstruction technique DLP: 552 mGy-cm FINDINGS: There is no acute intra-axial, extra-axial bleed, masses or midline shift. There is no acute infarction evolution. The lateral ventricles are symmetrical in size and configuration without enlargement. There is diffuse periventricular hypodensity in both cerebral hemispheres. Bone windows reveal no calvarial abnormality. There is no scalp soft tissue abnormality. Bilateral paranasal sinuses and mastoid air cells are well-aerated. Previously seen right parotid mass is not visualized. CT/CT head for stroke IMPRESSION: No acute intracranial process seen. Chronic small vessel ischemic changes without edema in both cerebral hemispheres. This critical result was discussed with Dr. Koo at 12:50 PM hours on 12/22/2021. It was ascertained that the content and urgency of the report was understood at the time of direct communication.
--- NOTE | ~2021-12-22 | MR_ITS ---
MRI OF THE BRAIN WITHOUT IV CONTRAST INDICATION: Left-sided weakness. COMPARISON: Head CT 01/14/2021. TECHNIQUE: Multiplanar multisequence MR imaging of the brain was obtained without IV contrast. FINDINGS: There is global cerebral volume loss, there is moderate chronic microangiopathy, there are chronic infarcts within the left frontal lobe and the right deep arteaga nuclei, and there are foci of chronic hemosiderin staining within the right thalamus and cerebral hemispheres bilaterally. Chronic lacunar infarcts in the brainstem which exhibits volume loss. There is no hydrocephalus, extra-axial surface collection, or herniation. The major flow voids at the skull base are preserved. Artifact versus a punctate acute lacunar infarct within the dorsomedial left thalamus. No additional evidence of acute infarction. No mass effect. There is no intracranial hemorrhage on the gradient recalled echo acquisition. The midline structures are normal. The cerebellar tonsils are normally positioned. The craniocervical junction is normal. Osseous marrow signal intensity is homogenous. A 2.1 cm mass within the right parotid gland is again noted. ENT consultation advised. MR/MR head/brain wo con IMPRESSION: - Artifact versus a punctate acute lacunar infarct within the dorsomedial left thalamus. No additional evidence of acute infarction. No mass effect. - There is global cerebral volume loss, there is moderate chronic microangiopathy, there are chronic infarcts within the left frontal lobe and the right deep arteaga nuclei, and there are foci of chronic hemosiderin staining within the right thalamus and cerebral hemispheres bilaterally. Chronic lacunar infarcts in the brainstem which exhibits volume loss. - A 2.1 cm mass within the right parotid gland is again noted. ENT consultation advised.
--- NOTE | 2021-12-22 12:44 | ECG_ITS ---
Test Reason : STROKE Blood Pressure : / mmHG Vent. Rate : 067 BPM Atrial Rate : 067 BPM P-R Int : 174 ms QRS Dur : 090 ms QT Int : 400 ms P-R-T Axes : 041 042 032 degrees QTc Int : 422 ms Normal sinus rhythm Normal ECG When compared with ECG of 14-JAN-2021 19:32, No significant change was found Referred By: Blu Koo Electronically Signed By:ADRYAN BRUNO
--- NOTE | 2021-12-22 12:45 | ED.NEUROSD ---
HPI - Neuro Symptoms/Deficit General Chief Complaint: Stroke Stated Complaint: STROKE ALERT ,FAST 2,L WEAK,H/O STROKE,LKWT 7AM Time Seen by Provider: 12/22/21 12:37 Source: patient Mode of arrival: ambulatory Limitations: no limitations History of Present Illness HPI Narrative: This is a 56 years old of female presented to the emergency department with stroke-like symptoms she states that she is weak in the left arm since this morning at 07:00, she does any of history of a prior intracranial bleed,rt thalamic Location: left arm History of same: Yes Severity: moderate Quality: weak Relieving factors: none Exacerbating factors: none Context: sudden onset Related Data Home Medications Medication Instructions Recorded Confirmed gabapentin 100 mg capsule 100 mg PO DAILY 07/19/20 12/22/21 dulaglutide 0.75 mg/0.5 mL 0.75 mg subcut TU@0900 12/22/21 12/22/21 subcutaneous pen injector (Trulicity) ondansetron HCl 4 mg tablet 4 mg PO Q6H PRN Nausea And Vomiting 12/22/21 12/22/21 Previous Rx's Medication Instructions Recorded blood-glucose meter (FreeStyle #1 ea 07/19/20 Lite Meter kit) cholecalciferol (vitamin D3) 25 25 mcg PO DAILY #90 caps 10/13/20 mcg (1,000 unit) capsule (Vitamin D3) atorvastatin 40 mg tablet 40 mg PO BEDTIME #30 tabs 01/16/21 lisinopril 10 1 tab PO DAILY #90 tabs 01/20/21 mg-hydrochlorothiazide 12.5 mg tablet cyanocobalamin (vitamin B-12) 1,000 mcg PO DAILY #90 tabs 01/21/21 1,000 mcg tablet (Vitamin B-12) ezetimibe 10 mg tablet 10 mg PO DAILY #30 tabs 04/23/21 blood sugar diagnostic (FreeStyle #300 ea 07/22/21 Lite Strips) lancing device #1 ea 08/13/21 metformin 500 mg tablet 500 mg PO DAILY #90 tabs 08/13/21 sitagliptin 100 mg tablet (Januvia) 100 mg PO DAILY #90 tabs 08/13/21 ibuprofen 600 mg tablet 600 mg PO BID PRN for pain #40 tabs 09/22/21 Allergies Allergy/AdvReac Type Severity Reaction Status Date / Time No Known Allergies Allergy Verified 06/17/21 09:20 [No Known Allergies*] Review of Systems ENT: Reports system reviewed and no additional complaints, except as documented Cardiovascular: Cardiovascular: Reports no additional cardiovascular complaints Gastrointestinal: Gastrointestinal: Reports no additional gastrointestinal complaints [facility] Past Medical History Medical History Anemia Asthma Cancer CVA (cerebral vascular accident) Depression Diabetes with retinopathy Dizziness Dyslipidemia Essential hypertension GERD (gastroesophageal reflux disease) History of degenerative joint disease Hx: UTI (urinary tract infection) Intracranial atherosclerosis Mass of right parotid gland Menopause Normocytic normochromic anemia Parotid mass Sleep apnea Tubular adenoma of colon Type 2 diabetes mellitus without complication, without long-term current use of insulin UTI (urinary tract infection) Vitamin D deficiency Surgical History History of carpal tunnel release History of total abdominal hysterectomy Hx of cholecystectomy Hx of colonoscopy Hx of endoscopy Hx of hand surgery Family History Family History Father Cancer Mother Cancer Myocardial infarction Family/Other Diabetes Social History Social History Household Members: Spouse Housing: Apartment Do you presently have visiting nurse or other home services: Yes Alcohol intake: current Alcohol intake frequency: holidays/special occasions only Patient Tobacco Use Status: Never used Tobacco e-Cigarette/Vaping Use: Never Used Advance Directives: Yes Advance Directives on File: Yes Advance Directives Date on File: 01/20/21 service: No Current occupational status: disabled Current occupation: rt handed Physical Exam Vital Signs: Vital Signs: Last Vital Signs Temp 97.6 F 12/22/21 15:37 Pulse 69 12/22/21 15:37 Resp 16 12/22/21 15:37 BP 178/81 H 12/22/21 15:37 Pulse Ox 98 12/22/21 15:37 O2 Del Method 12/22/21 15:37 BMI result Body Mass Index 32.8 Const: General: cooperative Nutritional Appearance: average body habitus Orientation/consciousness: patient oriented x3 Limitations: no limitations HEENT: Head: Yes normal to inspection and Yes No palpable skull fracture present Ears: external ears normal General nose exam: Normal external nose present Face and sinus: Yes normal facial exam Mouth: Normal oral and palatal mucosa present Throat: Yes posterior oropharynx normal Neck: Neck: Yes full ROM Thyroid: Thyroid normal Chest: Chest palpation & inspection: normal palpation of entire chest wall Resp: Effort & Inspection: normal respiratory effort Auscultation: clear to auscultation bilaterally Cardio: Jugular venous distension: no JVD Rate: regular rate Rhythm: regular rhythm GI: Inspection: Yes normal to inspection Palpation (GI): Soft to palpation, not firm, nontender and no guarding Skin: General skin exam: elasticity normal and turgor normal Lesions: no lesions Rashes: no rashes Neuro: Other: On examination she has a pronator drift in the left, facial droop present as well,it is no clear if this is an old finding or not regardless she is out of the window for tPA we will consult the stroke team General: patient oriented x3 Course Reevaluation(s) Reevaluation #1: pt remain stable clinically,MRI showed possible CVA will admit she is out of window for TPA MDM - Neuro Symptoms/Deficit Lab Data Result diagrams: 12/22/21 15:58 12/22/21 15:58 Labs: Lab Results 12/22/21 Range/Units 13:09 POC Glucose 121 H (60-115) mg/dL Imaging Data mri brain: Radiologist's impression: ?left frontal lobe and the right deep arteaga nuclei, and there are foci of chronic hemosiderin staining within the right thalamus and cerebral hemispheres bilaterally. Chronic lacunar infarcts in the brainstem which exhibits volume loss. There is no hydrocephalus, extra-axial surface collection, or herniation. The major flow voids at the skull base are preserved. Artifact versus a punctate acute lacunar infarct within the dorsomedial left thalamus. No additional evidence of acute infarction. No mass effect. There is no intracranial hemorrhage on the gradient recalled echo acquisition. The midline structures are normal. The cerebellar tonsils are normally positioned. The craniocervical junction is normal. Osseous marrow signal intensity is homogenous. A 2.1 cm mass within the right parotid gland is again noted. ENT consultation advised. MR/MR head/brain wo con IMPRESSION: - Artifact versus a punctate acute lacunar infarct within the dorsomedial left thalamus. No additional evidence of acute infarction. No mass effect. ? - There is global cerebral volume loss, there is moderate chronic microangiopathy, there are chronic infarcts within the left frontal lobe and the right deep arteaga nuclei, and there are foci of chronic hemosiderin staining within the right thalamus and cerebral hemispheres bilaterally. Chronic lacunar infarcts in the brainstem which exhibits volume loss. ? - A 2.1 cm mass within the right parotid gland is again noted. ENT consultation advised. NIH Stroke Scale Internal: Initial- Upon Arrival Level of Consciousness: Alert Level of Consciousness Questions: Answers both questions correctly Level of Consciousness Commands: Performs both tasks correctly Best Gaze: Normal Visual: No visual loss Facial Palsy: Partial paralysis Motor Arm (Right): No drift Motor Arm (Left): Some effort against gravity Motor Leg (Right): No drift Motor Leg (Left): No drift Limb Ataxia: Absent Sensory: Normal Best Language: No aphasia Dysarthia: Normal Extinction and Inattention: No abnormality Score: 4 Discharge Plan Discharge Clinical Impression: Acute CVA (cerebrovascular accident) Patient Disposition: Admitted As Inpatient
[2021-12-22 12:49] VITALS: BP 175/91; BP 182/100; PULSE 70; PULSE 78; RESP 16; TEMP 36.7; O2SAT 97; O2SAT 98; BMI 32.8
[2021-12-22] MEDS: iohexoL 350 MG/ML 100 ML INFUS..BTL IV (13:07)
--- NOTE | 2021-12-22 13:11 | PC.NURSE ---
Sister Rakel [phone] Sister Ritika [phone] HCP
[2021-12-22 13:31] LABS: Glucose, Whole Blood 121 mg/dL (60-115)
--- NOTE | 2021-12-22 14:57 | P.HPHOSP_ITS ---
History of Present Illness Date of Service: 12/22/21 Attending physician on admission: Oksana Shepherd Chief Complaint: possible cva vs tia 55-year-old female with a past medical history Of hypertension, hyperlipidemia, diabetes, anxiety, depression, vitamin-D deficiency, GERD, history of CVA, anemia, asthma, Elan -patient came to the hospital because of stroke-like symptoms, patient says that she has left hemiparesis but feeling more weak this morning and the also had mild facial droop, patient said that she went to sleep fine at her usual [facility] home health last night and she woke up with with worsening weakness and facial droop. She says that her weakness is improving left-sided. Denies any new complaint of chest pain or shortness of breath or abdominal pain or fever or chills or nausea or vomiting Denies any cough Denies any numbness. Lab imaging reviewed : Patient has leukocytosis of 11.6, sodium 140, BUN 19, creatinine 0.82. Liver panel seems fine except ALT is slightly elevated 34. CTa head-CT/CT angio head? neck stroke IMPRESSION: Stable atheromatous disease in the cervical and intracranial vasculature. No new significant stenoses or vessel occlusions. ? 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 MR/MR head/brain wo con IMPRESSION: - Artifact versus a punctate acute lacunar infarct within the dorsomedial left thalamus. No additional evidence of acute infarction. No mass effect. ? - There is global cerebral volume loss, there is moderate chronic microangiopathy, there are chronic infarcts within the left frontal lobe and the right deep arteaga nuclei, and there are foci of chronic hemosiderin staining within the right thalamus and cerebral hemispheres bilaterally. Chronic lacunar infarcts in the brainstem which exhibits volume loss. ? - A 2.1 cm mass within the right parotid gland is again noted. ENT consultation advised. ? Review of Systems Review of Systems: Yes all other systems are reviewed and are negative [facility] Medical History Anemia Asthma Cancer CVA (cerebral vascular accident) Depression Diabetes with retinopathy Dizziness Dyslipidemia Essential hypertension GERD (gastroesophageal reflux disease) History of degenerative joint disease Hx: UTI (urinary tract infection) Intracranial atherosclerosis Mass of right parotid gland Menopause Normocytic normochromic anemia Parotid mass Sleep apnea Tubular adenoma of colon Type 2 diabetes mellitus without complication, without long-term current use of insulin UTI (urinary tract infection) Vitamin D deficiency Family History Father Cancer Mother Cancer Myocardial infarction Family/Other Diabetes Surgical History History of carpal tunnel release History of total abdominal hysterectomy Hx of cholecystectomy Hx of colonoscopy Hx of endoscopy Hx of hand surgery Social History Household Members: Spouse Housing: Apartment Do you presently have visiting nurse or other home services: Yes Alcohol intake: current Alcohol intake frequency: holidays/special occasions only Patient Tobacco Use Status: Never used Tobacco e-Cigarette/Vaping Use: Never Used Advance Directives: Yes Advance Directives on File: Yes Advance Directives Date on File: 01/20/21 service: No Current occupational status: disabled Current occupation: rt handed Meds Allergies Allergy/AdvReac Type Severity Reaction Status Date / Time No Known Allergies Allergy Verified 06/17/21 09:20 [No Known Allergies*] Active Medications: Current Medications Pharmacy Consult (Consult Rx Perform Med Rec) 1 each MISCELLANE ONCE PRN PRN Reason: Consult order Sodium Chloride (0.9 % Sodium Chloride Flush 3 Ml Syringe) 3 ml IVFLUSH [facility] Home Medications Medication Instructions Recorded Confirmed Last Taken Type gabapentin 100 mg capsule 100 mg PO DAILY 07/19/20 12/22/21 12/22/21 History dulaglutide 0.75 mg/0.5 mL 0.75 mg subcut TU@0900 12/22/21 12/22/21 Unknown [facility] ondansetron HCl 4 mg tablet 4 mg PO Q6H PRN Nausea And Vomiting 12/22/21 12/22/21 Unknown History Physical Exam Vital Signs and Narrative: Vital Signs: Last Vital Signs Temp 98.1 F 12/22/21 12:49 Pulse 70 12/22/21 12:49 Resp 16 12/22/21 12:49 BP 175/91 H 12/22/21 12:49 Pulse Ox 97 12/22/21 12:49 O2 Del Method 12/22/21 12:49 BMI result Body Mass Index 32.8 Appearance: Alert.? Oriented X3.? Eyes: Pupils equal, round and reactive to light.? Sclera nonicteric.? ENT: Pharynx normal.? Moist mucous membranes. cvs: rrr, [id number]. res: clear to auscultation ,no rhonchii or wheezing abd: no rebound or guarding ,nt, bs present. ext pulses present , no cyanosis . neuro: axo3 , nonfocal.left facial drop?new Results Labs Labs: Laboratory Results - last 24 hr 12/22/21 13:09 POC Glucose 121 H Imaging Radiologist's Impressions: Impressions Head CT 12/22/21 12:40 IMPRESSION: No acute intracranial process seen. Chronic small vessel ischemic changes without edema in both cerebral hemispheres. This critical result was discussed with Dr. Koo at 12:50 PM hours on 12/22/2021. It was ascertained that the content and urgency of the report was understood at the time of direct communication. Head/Neck CTA 12/22/21 13:08 IMPRESSION: Stable atheromatous disease in the cervical and intracranial vasculature. No new significant stenoses or vessel occlusions. 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 Imaging findings reported to Dr. Koo at 1:30 PM on 12/22/2021. Brain MRI 12/22/21 14:00 IMPRESSION: - Artifact versus a punctate acute lacunar infarct within the dorsomedial left thalamus. No additional evidence of acute infarction. No mass effect. - There is global cerebral volume loss, there is moderate chronic microangiopathy, there are chronic infarcts within the left frontal lobe and the right deep arteaga nuclei, and there are foci of chronic hemosiderin staining within the right thalamus and cerebral hemispheres bilaterally. Chronic lacunar infarcts in the brainstem which exhibits volume loss. - A 2.1 cm mass within the right parotid gland is again noted. ENT consultation advised. Assessment and Plan (1) TIA (transient ischemic attack): Status: Acute (2) Type 2 diabetes mellitus without complication, without long-term current use of insulin: Status: Acute (3) Essential hypertension: Status: Acute Plan 56yo F with HTN, HLD, DM2,? hx hemorrhagic CVA with L hemiparesis presented with possible tia vs cva possible tia vs cva (? artifact): home med reconcillation pending no acute hemorragic continue home meds Added echo for workup, Neurology consult. # parotid mass, suspicious she said they has biopsy with ENT -was told it was fine. Advised to follow-up with ENT outpatient since masses stable on MRI. # hx CVA continue antiplatelet agent for secondary prevention and statin # HLD - continue ezetimibe, statin as above # HTN - continue home meds , med reconcillation pending # DM2 - correction-dose lispro [MTF held] # VTE ppx s/c lovenox Above management discussed the patient and patient's in detail length, they both understand and in agreement with the above plan, her Mr Zapata ). Assessment and plan coordination time spent 70 minute. Patient may benefit for 2 midnight stay considering workup for CVA and neurology evaluation . Quality Stroke Does the patient have a stroke diagnosis?: Yes Reason for No Anti-thrombotic by Day Two: N/A - Med Ordered VTE Prior VTE?: No VTE Risk Level:: Medical - moderate - high VTE Device Contraindication: N/A - Device Ordered VTE Drug Contraindication: N/A - Med Ordered
[2021-12-22] MEDS: 0.9 % Sodium Chloride Flush 3 ML SYRINGE IVFLUSH (15:06)
[2021-12-22] MEDS: Aspirin Enteric Coated 81 MG TABLET.DR PO (15:06)
--- NOTE | 2021-12-22 15:13 | PHA.MEDREC ---
Pharmacy Consult ? Medication Reconciliation Pharmacy has completed the medication reconciliation.
[2021-12-22 15:37] VITALS: BP 178/81; PULSE 69; RESP 16; TEMP 36.4; O2SAT 98
--- NOTE | 2021-12-22 15:50 | PC.NURSE ---
PT AOX4 AMB WITH STEADY GAIT PASSED SWALLOW EVAL. BRP PT WILL BE ADMITTED TO EVALUATE NEUROLOGICAL STATUS HAS BEEN SEEN BY HOSPITALIST
[2021-12-22 16:02] LABS: MANUAL DIFF FLAG NO
[2021-12-22 16:13] LABS: Glucose, Whole Blood 76 mg/dL (60-115)
[2021-12-22 16:20] LABS: Prothrombin Time 10.9 SEC (10.0-13.1)
[2021-12-22 16:22] LABS: COVID-19 Test Negative (Negative)
[2021-12-22 16:22] LABS: Alanine Aminotransferase 23 U/L (0-31); Albumin Level 3.6 g/dL (3.5-5.0); Alkaline Phosphatase 83 U/L (39-117); Anion Gap 13 (12-20); Aspartate Amino Transferase 19 U/L (5-31); Bilirubin Total 0.2 mg/dL (0.0-1.0); Blood Urea Nitrogen 22 mg/dL (9-16); Calcium 8.7 mg/dL (8.4-10.2); Carbon Dioxide 24 mmol/L (22-29); Chloride 107 mmol/L (96-108); Creatinine Clr Calc Pharmacy 77.6; Estimated Glomerular Filt Rate > 60; Glucose Random 101 mg/dL (60-115); Potassium 4.2 mmol/L (3.3-5.1); Sodium 140 mmol/L (135-145); Total Protein 7.2 g/dL (6.5-8.0)
[2021-12-22 16:23] LABS: Partial Thromboplastin Time 29.1 SEC (26.0-36.4)
[2021-12-22 16:26] LABS: Troponin-I High Sensitivity < 3.5 ng/L (<3.5-17.0)
--- NOTE | 2021-12-22 16:29 | PC.NURSE ---
patient was change into hospital attire by this pct ,patient blood sugar was 76 patient was given a pbj sandwich and orange juice .rn aware .
[2021-12-22 16:38] LABS: Basophils Percent Auto 0.4 % (0-2); Eosinophils Absolute Auto 0.1 X10*3/uL (0.0-0.4); Hematocrit 38.5 % (37.0-47.0); Hemoglobin 12.7 g/dl (12.0-16.0); Imm Gran Abs Auto 0.01 X10*3/uL (0.00-0.03); Imm Gran Pct Auto 0.1 % (0.0-0.4); Lymphocytes Absolute Auto 1.8 X10*3/uL (1.2-4.9); Lymphocytes Percent Auto 22.3 % (20-40); Mean Platelet Volume 11.6 fL (9.4-12.3); Monocytes Absolute Auto 0.6 X10*3/uL (0.1-1.2); Monocytes Percent Auto 7.3 % (2-11); Neutrophils Absolute Auto 5.5 x10*3/uL (2.0-8.3); Neutrophils Percent Auto 68.9 % (45-73); Platelet Count 193 X10*3/uL (160-400); Red Blood Count 4.53 X10*6/uL (4.20-5.50); Red Cell Distribution Width 13.5 % (11.0-16.0)
[2021-12-22 19:58] VITALS: BP 196/85; PULSE 69; RESP 16; TEMP 36.9; O2SAT 98
--- NOTE | 2021-12-22 20:41 | PC.NURSE ---
patient was put on briquette maker by this pct .
--- NOTE | 2021-12-22 20:47 | MHC.CM.PN ---
IMM 12/22. CM met with Palestinian speaking admitted pt. Pt with ? TIA/CVA. Pt has hx of previous CVA with L sided weakness. Pt has 2 FLOOR COVERER's daily from [employer]. Pt sister Ritika Mojica is the HCP and FLOOR COVERER. Has copies at home. Brother in law, Benny is also her FLOOR COVERER. FLOOR COVERER help with ADL's and meal prep. Pt uses a cane, walker(wheeled), shower chair and DM supplies. Pt lives alone. Pt is vaccinated with Moderna x2(09/05/20 & 10/06/20). No booster. Pt has had home PT in the past. Cannot remember what company. D/C plan is home PT vs STR. Will depend on PT recommendations. No referrals placed at this time. CM to follow for d/c needs.
--- NOTE | 2021-12-22 20:51 | PC.NURSE ---
inpt provider Dr. López contacted via tiger text regarding pts headache and elevated BP
[2021-12-22 20:52] LABS: Glucose, Whole Blood 73 mg/dL (60-115)
--- NOTE | 2021-12-22 20:53 | PC.NURSE ---
plan per provider is review patient ER chart and advised this nurse for further direction.Provider also wants this nurse to given tylenol for headache
--- NOTE | 2021-12-22 22:03 | PC.NURSE ---
THIS NURSE TIGER TEXTED PROVIDER ASKING FOR ORDER PLACEMENT OF TYLENOL WILL AWAIT TO REC ORDER AND THEN ADMIN ACCORDINGLY
--- NOTE | 2021-12-22 22:15 | PC.NURSE ---
pt ambulatory steady gait to the bathroom with no issues
[2021-12-22] MEDS: Acetaminophen 325 MG TABLET 650 MG PO (22:26)
--- NOTE | 2021-12-22 22:26 | PC.NURSE ---
pt medicated per [facility] orders for headache, will continue to monitor pt and perform neuro checks
--- NOTE | 2021-12-22 22:59 | PC.NURSE ---
verbal over the phone report given to rec nurse in ED overflow area
[2021-12-22 23:16] LABS: Glucose, Whole Blood 102 mg/dL (60-115)
[2021-12-22 23:59] VITALS: BP 147/71; PULSE 60; RESP 12; TEMP 36.4; O2SAT 99
[2021-12-23] VITALS (8 sets, daily range): BP systolic 118–172; BP diastolic 59–82; PULSE 57–65; RESP 11–14; TEMP 36.2–37; O2SAT 96–100
--- NOTE | 2021-12-23 06:07 | PC.NURSE ---
Addendum entered by Jimi Arevalo RN 12/23/21 06:24: NSR/SBRady rate 50-60's on bedside monitor throughout the night. Original Note: I assumed nursing care of Ada at 2300. Since that time Marisol has been resting in bed awaiting an inpatient bed assignment. Vishnu has remained alert, oriented x 3. SHe has mostly been sleeping but woke to ambulate to the bathroom to void. After ambulating - which she did independently and safely with steady gait - she stated she felt back to her baseline. I asked if she was continuing to feel as if her baseline L sided weakness was worse and she stated no . Respirations are non-labored, RR WNL, room air sat's WNL, no cyanosis, she speaks in full sentences. There is obvious L sided facial droop that is not new. No chest pain. No nausea. No vomiting. \ We will continue to monitor Marisol.
--- NOTE | 2021-12-23 07:00 | CA_ITS ---
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 The calculated ejection fraction is 64% by biplane method. - The basal inferior and basal inferolateral segments are akinetic. - No obvious valvular pathology seen on this study. Findings Left Ventricle Normal left ventricular cavity size. There is mildly increased left ventricular wall thickness. The left ventricular systolic function is normal. The calculated ejection fraction is 64% by biplane method. There is evidence of regional wall motion abnormalities. Diastolic function is normal for age. Wall Motion Rest Echo Findings The basal inferior and basal inferolateral segments are akinetic. Right Ventricle Normal right ventricular cavity size and systolic function. Atria Both atria are normal in size. Aortic Valve There is a normal trileaflet aortic valve. There is no aortic valve stenosis. There is no aortic valve regurgitation. Mitral Valve The mitral valve appears normal. There is trace mitral valve regurgitation. There is no mitral valve stenosis. Pulmonic Valve The pulmonic valve is likely normal. Tricuspid Valve Normal tricuspid valve structure. There is trace tricuspid valve regurgitation. The pulmonary artery systolic pressure is normal. Great Vessels The aortic annulus, sinuses of valsalva, and asc aorta are normal in size. Venous The inferior vena cava is normal in size and collapses greater than 50% with inspiration. Pericardium/Pleural There is no evidence of pericardial effusion. Prior Study Comparison No prior study available for comparison. Recommendations, Care & Conclusions No obvious valvular pathology seen on this study. Measurements 2D Linear Measurements IVSd: 1.23 0.6-0.9/0.6-1.0 cm LVIDd: 4.19 3.9-5.3/4.2-5.9 cm LVIDd Index: 2.35 2.4-3.2/2.2-3.1 cm/m2 LVIDs: 2.62 2.0-3.6 cm LVPWd: 1.26 0.7-1.1 cm Ao Root: 3.00 2.1-3.5 cm LA Diam: 3.80 2.7-3.8/3.0-4.0 cm LAIDs Index: 2.13 1.5-2.3 cm/m2 LV Mass: 233.50 67-162/88-224 g LV Mass Index: 131.18 43-95/49-115 g/m2 LVOT Diam: 2.00 3.0+(-)1.3 cm 2D Systolic Function EF 4C: 64.40 >55% EF 2C: 57.90 >55% EF BiP: 63.60 >55% Mitral Valve MV Pk E: 0.67 MV PK A: 0.83 MV Decel Time: 173.00 E/A: 0.80 E'Lateral: 8.16 E'Medial: 6.53 E/E' Med: 10.30 E/E' Lat: 8.20 PHT: 51.00 MVA PHT: 4.31 Decel Gentry: 3.88 Aortic Valve AoV Pk Sacha: 1.22 AoV Mn Sacha: 0.78 AoV VTI: 0.32 AoV Pk Grad: 6.00 Aov Mn Grad: 3.00 KRUPA Cont.VTI: 2.19 LVOT LVOT Pk Sacha: 0.82 LVOT Mn Sacha: 0.48 LVOT VTI: 0.22 LVOT Pk Grad: 3.00 LVOT Mn Grad: 1.00 LVOT Diam: 2.00 LVOT Area: 3.14 Diastolic Function MV Pk E: 0.67 MV Pk A: 0.83 E/A: 0.80 E'Medial: 6.53 E/E' Med: 10.30 E' Laterial: 8.16 E/E' Lat: 8.20 Right Ventricle TAPSE (mm): 18.00 TVS' Sacha: 10.00 Tricuspid Valve TR Pk Sacha: 1.85 TR Pk Grad: 14.00 RA Press: 3.00 RVSP: 17.00 Great Vessels Aorta Ao Root-2D: 3.00 2.0-3.7 cm Sinus of Valsalva: 3.00 2.0-3.5 cm Ao Asc: 3.00 2.1-3.4 cm Pulmonary Valve PV Pk Sacha: 0.77 Peak PV Grad: 2.00 Updated in Other Vendor System with Status of Final Dixon Garcia MD electronically signed on 12/23/2021 4:04:31 PM with status of Final
[2021-12-23 07:15] LABS: Glucose, Whole Blood 103 mg/dL (60-115)
[2021-12-23] MEDS: Enoxaparin Sodium 40 MG/0.4 ML SYRINGE SUBCUT (08:32)
[2021-12-23] MEDS: Gabapentin 100 MG CAPSULE PO (08:36)
[2021-12-23] MEDS: Cholecalciferol (Vitamin D3) 25 MCG TABLET PO (08:36)
[2021-12-23] MEDS: Cyanocobalamin (Vitamin B-12) 1,000 MCG TABLET 1000 MCG PO (08:36)
[2021-12-23] MEDS: Acetaminophen 325 MG TABLET 650 MG PO (08:37)
[2021-12-23] MEDS: amLODIPine Besylate 2.5 MG TABLET PO (08:37)
[2021-12-23] MEDS: Ezetimibe 10 MG TABLET PO (08:37)
[2021-12-23] MEDS: lisinopriL 10 MG TABLET PO (08:43)
--- NOTE | 2021-12-23 08:52 | PC.NURSE ---
pt's sister dara ([phone]) called and was updated on pt status.
--- NOTE | 2021-12-23 08:53 | PC.NURSE ---
a/ox4 . pearrla . heart rate regular at 60 beats . lungs clear . skin pink warm and dry . left sided facial drop noted from previous CVA . left sided weakness in arm . left arm guarded . skin warm dry and appropriate for ethnicity . abdomen soft non tender . postive bowel sounds . Contacted Dr Kathy Shepherd for diet order and preformed bedside swallow evaluation . patient passed bedside swallow . provider aware and diet order obtained . patient aware of plan of care .
--- NOTE | 2021-12-23 09:22 | PC.NURSE ---
bedside swallow is being done by speech.
[2021-12-23] MEDS: 0.9 % Sodium Chloride Flush 3 ML SYRINGE IVFLUSH ×2 (10:15→17:21)
[2021-12-23] MEDS: hydroCHLOROthiazide 12.5 MG TABLET PO (10:21)
--- NOTE | 2021-12-23 11:44 | MHC.SL.SWA ---
Addendum entered and electronically signed by Jaqueline Neumann MA, CCC-DIE CUTTER 12/23/21 11:54: D.S. Original Note: Speech Pathologist Impression: Oral phase dysphagia Risk of Aspiration Due to: Hx of stroke Dysphasia Diet Status: Downgrade Liquid Consistency and Strategies for Safe Swallow: Liquid Intake Recommendation: Thin Liquid Intake Strategies: Small Sips Solid Food Consistency: Dietary Recommendations: Chopped/Advanced (NDD3) Oral Medication Intake: Whole with Liquid Please contact the pharmacy regarding appropriate crushable or liquid drug formulations that are available whenever modified delivery is recommended. Compensatory Strategies and Precautions to be Taken for Safe Swallow: Sitting Upright (90 deg) Small Bites and Sips Alternate Liquids/Solids Avoid Specific Foods Supervision While Eating and Drinking for Safe Swallow: None Needed Foods to Avoid: Tough to chew solids Swallowing Recommended Treatments: NA Recommendation for Speech: NA:Typical Evaluation Comment: Further ST intervention no longer indicated at this time as this is pt's reported baseline. Please re-refer with any changes or concerns. Vaccinator Clinican/Clinical Fellow: Yes: Natalee Murray M.A., CF-DIE CUTTER Supervisory Statement: I have reviewed and agree with the student/clinical fellow's documentation: Yes Speech Language Pathologist: Jaqueline Neumann M.A., CCC-DIE CUTTER
[2021-12-23 11:48] LABS: Glucose, Whole Blood 110 mg/dL (60-115)
--- NOTE | 2021-12-23 12:27 | MHC.STROKE ---
12/22/21 AT 1226 EMS [facility] PRE-NOTIFIED STROKE ALERT LEFT SIDED WEAKNESS. ARRIVED AT 1233. STROKE PROTOCOL ACTIVATED, DR. CHANG AT THE BEDSIDE, LEFT FACIAL DROOP AND LA WEAKNESS, NIHSS = 4. LKW 0700 BUT THAT WAS WHEN SHE DISCOVERED THE SYMPTOMS. SHE WENT TO BED AT 2300 SO LKW IS 12/21/21 2300. ON EMS STRETCHER DIRECT TO CTH AND CTA H/N. NO BLEED AND NO LVO. PASSED NURSING SWALLOW SCREEN PRIOR TO ANY PO. I MET WITH THE PATIENT AND PROVIDED STROKE EDUCATION AND REVIEWED THE PLAN OF CARE WITH HER AND FAMILY MEMBER. SHE IS KNOWN TO THE STROKE SERVICE FROM PRIOR ADMISSIONS (AIS 2003 WITH RESIDUAL LEFT SIDED WEAKNESS), (TIA 2008) (ICH 08/23/2017). SHE MENTIONED THAT SHE WAS TAKEN OFF HER ASPIRIN. SHE WENT TO MRI AND NO NEW STROKE WAS IDENTIFIED. SHE WAS ADMITTED AND MONITORED, ADDED STROKE EDUCATION INTERVENTION AND REQUESTED LIPID PANEL. ALL STROKE MEASURE MET. SHE IS ON MULTIPLE DIABETIC MEDICATIONS SEE LIST.
[2021-12-23] MEDS: Aspirin Enteric Coated 81 MG TABLET.DR PO (12:46)
--- NOTE | 2021-12-23 12:48 | PC.NURSE ---
pt c/o 9 h/a, aware.
[2021-12-23 13:09] LABS: Cholesterol 202 mg/dL; HDL Cholesterol 57 mg/dL; LDL Cholesterol Calculated 129 mg/dl; Triglycerides 80 mg/dL
--- NOTE | 2021-12-23 14:16 | PC.NURSE ---
electrocardiogram being done at bed side . patient aware of plan of care .
--- NOTE | 2021-12-23 14:41 | HO.PM.IMPN ---
Subjective Subjective Date of Service: 12/23/21 Interval History: possible tia Review of Systems symptoms seems to improved near baseline Physical Exam Vital Signs: Vital Signs: Last Vital Signs Temp 97.6 F 12/23/21 13:53 Pulse 65 12/23/21 13:53 Resp 13 12/23/21 13:53 BP 118/78 12/23/21 13:53 Pulse Ox 97 12/23/21 13:53 O2 Del Method 12/23/21 13:53 BMI result Body Mass Index 32.8 Appearance: Alert.? Oriented X3.? cvs: rrr, [id number]. res: clear to auscultation ,no rhonchii or wheezing abd: no rebound or guarding ,nt, bs present. ext pulses present , no cyanosis . neuro: axo3 , nonfocal.left facial drop?new Objective Data Active Medications Acetaminophen (Acetaminophen 325 Mg Tablet) 650 mg PO Q6H PRN PRN Reason: Pain, Mild (Pain Scale 1-3), Last Admin: 12/23/21 08:37 Dose: 650 mg Documented By: MIRANDA Amlodipine Besylate (Amlodipine Besylate 2.5 Mg Tablet) 2.5 mg PO DAILY [facility]; Protocol Last Admin: 12/23/21 08:37 Dose: 2.5 mg Documented By: MIRANDA Aspirin (Aspirin Enteric Coated 81 Mg Tablet.) 81 mg PO DAILY [facility] Last Admin: 12/23/21 12:46 Dose: 81 mg Documented By: CHAD Atorvastatin Calcium (Atorvastatin Calcium 40 Mg Tablet) 40 mg PO BEDTIME [facility] Last Admin: 12/22/21 22:59 Dose: Not Given Documented By: ERIC Non-Admin Reason: NPO Cyanocobalamin (Cyanocobalamin (Vitamin B-12) 1,000 Mcg Tablet) 1,000 mcg PO DAILY [facility] Last Admin: 12/23/21 08:36 Dose: 1,000 mcg Documented By: MIRANDA Dextrose (Dextrose 50 % 25 Gm/50 Ml Syringe) 25 gm IVPUSH Q15M PRN; Protocol PRN Reason: per Hypoglycemia Standing Ord. Ezetimibe (Ezetimibe 10 Mg Tablet) 10 mg PO DAILY [facility] Last Admin: 12/23/21 08:37 Dose: 10 mg Documented By: MIRANDA Enoxaparin Sodium (Enoxaparin Sodium 40 Mg/0.4 Ml Syringe) 40 mg SUBCUT Q24H [facility] Last Admin: 12/23/21 08:32 Dose: 40 mg Documented By: MIRANDA Gabapentin (Gabapentin 100 Mg Capsule) 100 mg PO DAILY [facility] Last Admin: 12/23/21 08:36 Dose: 100 mg Documented By: MIRANDA Glucose (Glucose Gel 15 Gm Gel..Gram.) 15 gm PO Q15M PRN; Protocol PRN Reason: per Hypoglycemia Standing Ord. Hydrochlorothiazide (Hydrochlorothiazide 12.5 Mg Tablet) 12.5 mg PO DAILY [facility]; Protocol Last Admin: 12/23/21 10:21 Dose: 12.5 mg Documented By: MIRANDA Insulin Human Lispro (Insulin Lispro 100 Unit/Ml 3 Ml Vial) 0 unit SUBCUT QIDACHS [facility]; Protocol Last Admin: 12/23/21 12:20 Dose: Not Given Documented By: MIRANDA Non-Admin Reason: No Insulin Coverage Lisinopril (Lisinopril 10 Mg Tablet) 10 mg PO DAILY [facility] Last Admin: 12/23/21 08:43 Dose: 10 mg Documented By: MIRANDA Ondansetron HCl (Ondansetron Odt 4 Mg Tab.Rapdis) 4 mg TRANSLINGU Q6H PRN PRN Reason: Nausea And Vomiting Pharmacy Consult (Consult Rx Perform Med Rec) 1 each MISCELLANE ONCE PRN PRN Reason: Consult order Sodium Chloride (0.9 % Sodium Chloride Flush 3 Ml Syringe) 3 ml IVFLUSH QSHIFT [facility] Last Admin: 12/23/21 10:15 Dose: 3 ml Documented By: MIRANDA Vitamin D (Cholecalciferol (Vitamin D3) 25 Mcg Tablet) 25 mcg PO DAILY [facility] Last Admin: 12/23/21 08:36 Dose: 25 mcg Documented By: MIRANDA Labs CBC & Chem 7: 12/22/21 15:58 12/22/21 15:58 Labs: Laboratory Results - last 24 hr 12/22/21 12/22/21 12/22/21 15:58 15:58 15:58 MCV 85.0 MCH 28.0 MCHC 33.0 RDW 13.5 Plt Count 193 MPV 11.6 Immature Gran % (Auto) 0.1 Neut % (Auto) 68.9 Lymph % (Auto) 22.3 Rincon % (Auto) 7.3 Eos % (Auto) 1.0 Baso % (Auto) 0.4 Lymph # (Auto) 1.8 Rincon # (Auto) 0.6 Eos # (Auto) 0.1 Baso # (Auto) 0.0 Abs Immat Gran (auto) 0.01 Absolute Neuts (auto) 5.5 Absolute Nucleated RBC 0.000 Nucleated RBC % (auto) 0.0 PT INR APTT 29.1 Anion Gap 13 Estim Creat Clear Calc 77.6 Estimated GFR > 60 POC Glucose Random Glucose 101 Calcium 8.7 Total Bilirubin 0.2 AST 19 ALT 23 Alkaline Phosphatase 83 Total Protein 7.2 Albumin 3.6 Triglycerides Cholesterol LDL Cholesterol, Calc HDL Cholesterol COVID-19 ([facility]) COVID-19 Clin Com 12/22/21 12/22/21 12/22/21 15:58 15:59 16:08 MCV MCH MCHC RDW Plt Count MPV Immature Gran % (Auto) Neut % (Auto) Lymph % (Auto) Rincon % (Auto) Eos % (Auto) Baso % (Auto) Lymph # (Auto) Rincon # (Auto) Eos # (Auto) Baso # (Auto) Abs Immat Gran (auto) Absolute Neuts (auto) Absolute Nucleated RBC Nucleated RBC % (auto) PT 10.9 INR 1.0 APTT Anion Gap Estim Creat Clear Calc Estimated GFR POC Glucose 76 Random Glucose Calcium Total Bilirubin AST ALT Alkaline Phosphatase Total Protein Albumin Triglycerides Cholesterol LDL Cholesterol, Calc HDL Cholesterol COVID-19 ([facility]) Negative COVID-19 Clin Com See Note 12/22/21 12/22/21 12/23/21 20:37 23:11 07:09 MCV MCH MCHC RDW Plt Count MPV Immature Gran % (Auto) Neut % (Auto) Lymph % (Auto) Rincon % (Auto) Eos % (Auto) Baso % (Auto) Lymph # (Auto) Rincon # (Auto) Eos # (Auto) Baso # (Auto) Abs Immat Gran (auto) Absolute Neuts (auto) Absolute Nucleated RBC Nucleated RBC % (auto) PT INR APTT Anion Gap Estim Creat Clear Calc Estimated GFR POC Glucose 73 102 103 Random Glucose Calcium Total Bilirubin AST ALT Alkaline Phosphatase Total Protein Albumin Triglycerides Cholesterol LDL Cholesterol, Calc HDL Cholesterol COVID-19 ([facility]) COVID-19 Clin Com 12/23/21 12/23/21 11:43 12:31 MCV MCH MCHC RDW Plt Count MPV Immature Gran % (Auto) Neut % (Auto) Lymph % (Auto) Rincon % (Auto) Eos % (Auto) Baso % (Auto) Lymph # (Auto) Rincon # (Auto) Eos # (Auto) Baso # (Auto) Abs Immat Gran (auto) Absolute Neuts (auto) Absolute Nucleated RBC Nucleated RBC % (auto) PT INR APTT Anion Gap Estim Creat Clear Calc Estimated GFR POC Glucose 110 Random Glucose Calcium Total Bilirubin AST ALT Alkaline Phosphatase Total Protein Albumin Triglycerides 80 Cholesterol 202 D LDL Cholesterol, Calc 129 HDL Cholesterol 57 D COVID-19 ([facility]) COVID-19 Clin Com Assessment and Plan (1) TIA (transient ischemic attack): Status: Acute Plan 56yo F with HTN, HLD, DM2,? hx hemorrhagic CVA with L hemiparesis presented with possible tia vs cva possible tia: home med reconcillation pending no acute hemorragic continue home meds Added echo for workup, Neurology consult. # parotid mass, suspicious she said they has biopsy with? ENT -was told it was fine. Advised to follow-up with ENT outpatient since masses stable on MRI. # hx CVA continue antiplatelet agent for secondary prevention and? statin # HLD - continue ezetimibe, statin as above # HTN - continue? home meds , med reconcillation pending # DM2 - correction-dose lispro [MTF held] # VTE ppx s/c lovenox inapteint needs : possible tia , workup Quality Stroke Does the patient have a stroke diagnosis?: Yes Reason for No Anti-thrombotic by Day Two: N/A - Med Ordered VTE Prior VTE?: No VTE Risk Level:: Medical - moderate - high VTE Device Contraindication: N/A - Device Ordered VTE Drug Contraindication: N/A - Med Ordered
[2021-12-23] MEDS: Ibuprofen 200 MG TABLET PO (14:46)
[2021-12-23 17:10] LABS: Glucose, Whole Blood 105 mg/dL (60-115)
--- NOTE | 2021-12-23 17:30 | PM.NEUROCN ---
History of Present Illness Data of Consult Service Date: 12/23/21 Primary Care Provider: María Cooper MD HPI Reason for consult: increased left sided weakness This is a 55-year-old female with a past medical history of hypertension, hyperlipidemia, diabetes, anxiety, depression, vitamin-D deficiency, GERD, history of CVA with left hemiparesis, anemia, asthma, PATRICK -patient came to the hospital because of feeling weaker on th eleft side and mild facial droop, patient said that she went to sleep fine and she woke up with with worsening weakness and facial droopon the left.? She says that her weakness is improving left-sided.Her MRI does not show any acute stroke to account for increase left-sided weakness. CTA shows stable atheromatous disease with no acute occlusions. Review of Systems Review of Systems: symptoms seems to improved near baseline Yes all other systems are reviewed and are negative ENT: Reports system reviewed and no additional complaints, except as documented Cardiovascular: Cardiovascular: Reports no additional cardiovascular complaints Gastrointestinal: Gastrointestinal: Reports no additional gastrointestinal complaints PMFSH Past Medical History Medical History Anemia Asthma Cancer CVA (cerebral vascular accident) Depression Diabetes with retinopathy Dizziness Dyslipidemia Essential hypertension GERD (gastroesophageal reflux disease) History of degenerative joint disease Hx: UTI (urinary tract infection) Intracranial atherosclerosis Mass of right parotid gland Menopause Normocytic normochromic anemia Parotid mass Sleep apnea Tubular adenoma of colon Type 2 diabetes mellitus without complication, without long-term current use of insulin UTI (urinary tract infection) Vitamin D deficiency Family History Family History Father Cancer Mother Cancer Myocardial infarction Family/Other Diabetes Surgical History Surgical History History of carpal tunnel release History of total abdominal hysterectomy Hx of cholecystectomy Hx of colonoscopy Hx of endoscopy Hx of hand surgery Social History Social History Household Members: Spouse Housing: Apartment Do you presently have visiting nurse or other home services: Yes Alcohol intake: current Alcohol intake frequency: holidays/special occasions only Patient Tobacco Use Status: Never used Tobacco e-Cigarette/Vaping Use: Never Used Advance Directives: Yes Advance Directives on File: Yes Advance Directives Date on File: 01/20/21 service: No Current occupational status: disabled Current occupation: rt handed Meds Allergies Allergy/AdvReac Type Severity Reaction Status Date / Time No Known Allergies Allergy Verified 06/17/21 09:20 [No Known Allergies*] Active Medications: Current Medications Acetaminophen (Acetaminophen 325 Mg Tablet) 650 mg PO Q6H PRN PRN Reason: Pain, Mild (Pain Scale 1-3), Last Admin: 12/23/21 08:37 Dose: 650 mg Amlodipine Besylate (Amlodipine Besylate 2.5 Mg Tablet) 2.5 mg PO DAILY [facility]; Protocol Last Admin: 12/23/21 08:37 Dose: 2.5 mg Aspirin (Aspirin Enteric Coated 81 Mg Tablet.Dr) 81 mg PO DAILY [facility] Last Admin: 12/23/21 12:46 Dose: 81 mg Atorvastatin Calcium (Atorvastatin Calcium 40 Mg Tablet) 40 mg PO BEDTIME [facility] Last Admin: 12/22/21 22:59 Dose: Not Given Cyanocobalamin (Cyanocobalamin (Vitamin B-12) 1,000 Mcg Tablet) 1,000 mcg PO DAILY [facility] Last Admin: 12/23/21 08:36 Dose: 1,000 mcg Dextrose (Dextrose 50 % 25 Gm/50 Ml Syringe) 25 gm IVPUSH Q15M PRN; Protocol PRN Reason: per Hypoglycemia Standing Ord. Ezetimibe (Ezetimibe 10 Mg Tablet) 10 mg PO DAILY [facility] Last Admin: 12/23/21 08:37 Dose: 10 mg Enoxaparin Sodium (Enoxaparin Sodium 40 Mg/0.4 Ml Syringe) 40 mg SUBCUT Q24H [facility] Last Admin: 12/23/21 08:32 Dose: 40 mg Gabapentin (Gabapentin 100 Mg Capsule) 100 mg PO DAILY [facility] Last Admin: 12/23/21 08:36 Dose: 100 mg Glucose (Glucose Gel 15 Gm Gel..Gram.) 15 gm PO Q15M PRN; Protocol PRN Reason: per Hypoglycemia Standing Ord. Hydrochlorothiazide (Hydrochlorothiazide 12.5 Mg Tablet) 12.5 mg PO DAILY [facility]; Protocol Last Admin: 12/23/21 10:21 Dose: 12.5 mg Insulin Human Lispro (Insulin Lispro 100 Unit/Ml 3 Ml Vial) 0 unit SUBCUT QIDACHS [facility]; Protocol Last Admin: 12/23/21 17:18 Dose: Not Given Lisinopril (Lisinopril 10 Mg Tablet) 10 mg PO DAILY [facility] Last Admin: 12/23/21 08:43 Dose: 10 mg Ondansetron HCl (Ondansetron Odt 4 Mg Tab.Rapdis) 4 mg TRANSLINGU Q6H PRN PRN Reason: Nausea And Vomiting Pharmacy Consult (Consult Rx Perform Med Rec) 1 each MISCELLANE ONCE PRN PRN Reason: Consult order Sodium Chloride (0.9 % Sodium Chloride Flush 3 Ml Syringe) 3 ml IVFLUSH QSHIFT [facility] Last Admin: 12/23/21 17:21 Dose: 3 ml Vitamin D (Cholecalciferol (Vitamin D3) 25 Mcg Tablet) 25 mcg PO DAILY [facility] Last Admin: 12/23/21 08:36 Dose: 25 mcg Home Medications Medication Instructions Recorded Confirmed Last Taken Type gabapentin 100 mg capsule 100 mg PO DAILY 07/19/20 12/22/21 12/22/21 History dulaglutide 0.75 mg/0.5 mL 0.75 mg subcut TU@0900 12/22/21 12/22/21 Unknown History subcutaneous pen injector (Trulicity) ondansetron HCl 4 mg tablet 4 mg PO Q6H PRN Nausea And Vomiting 12/22/21 12/22/21 Unknown History Physical Exam Vital Signs: Vital Signs: Last Vital Signs Temp 97.6 F 12/23/21 13:53 Pulse 65 12/23/21 13:53 Resp 13 12/23/21 13:53 BP 118/78 12/23/21 13:53 Pulse Ox 97 12/23/21 13:53 O2 Del Method 12/23/21 13:53 BMI result Body Mass Index 32.8 Const: General: cooperative Nutritional Appearance: average body habitus Orientation/consciousness: patient oriented x3 Limitations: no limitations HEENT: Head: Yes normal to inspection and Yes No palpable skull fracture present Ears: external ears normal General nose exam: Normal external nose present Face and sinus: Yes normal facial exam Mouth: Normal oral and palatal mucosa present Throat: Yes posterior oropharynx normal Neck: Neck: Yes full ROM Thyroid: Thyroid normal Chest: Chest palpation & inspection: normal palpation of entire chest wall Resp: Effort & Inspection: normal respiratory effort Auscultation: clear to auscultation bilaterally Cardio: Jugular venous distension: no JVD Rate: regular rate Rhythm: regular rhythm GI: Inspection: Yes normal to inspection Palpation (GI): Soft to palpation, not firm, nontender and no guarding Skin: General skin exam: elasticity normal and turgor normal Lesions: no lesions Rashes: no rashes Neuro: Other: Pre-existing mild left hemiparesis with hyperreflexia General: patient oriented x3 Results Labs CBC & Chem 7: 12/22/21 15:58 12/22/21 15:58 Assessment and Plan (1) TIA (transient ischemic attack): Status: Acute No evidence of new stroke. CTA does not show any acute occlusive disease. Continue aspirin 81 mg a day. Control blood pressure and sugar. 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 hx hemorrhagic CVA with L hemiparesis presented with possible tia vs cva possible tia: home med reconcillation pending no acute hemorragic continue home meds Added echo for workup, Neurology consult. # parotid mass, suspicious she said they has biopsy with? ENT -was told it was fine. Advised to follow-up with ENT outpatient since masses stable on MRI. # hx CVA continue antiplatelet agent for secondary prevention and? statin # HLD - continue ezetimibe, statin as above # HTN - continue? home meds , med reconcillation pending # DM2 - correction-dose lispro [MTF held] # VTE ppx s/c lovenox inapteint needs : possible tia , workup Procedures Date of Service Date of Service: 12/23/21
--- NOTE | 2021-12-23 19:33 | PC.NURSE ---
report received from anuj GALICIA. pt laying comfortably on stretcher. no current complaints, no apparent distress. call inman within reach. will continue to monitor
[2021-12-23 21:12] LABS: Glucose, Whole Blood 106 mg/dL (60-115)
[2021-12-23] MEDS: Atorvastatin Calcium 40 MG TABLET PO (21:12)
[2021-12-24] VITALS: BP 130/65; PULSE 62; RESP 12; TEMP 36.2; O2SAT 96
[2021-12-24 04:00] VITALS: BP 100/62; PULSE 60; RESP 12; TEMP 35.8; O2SAT 98
[2021-12-24 07:21] LABS: Glucose, Whole Blood 105 mg/dL (60-115)
[2021-12-24] MEDS: Cyanocobalamin (Vitamin B-12) 1,000 MCG TABLET 1000 MCG PO (08:35)
[2021-12-24] MEDS: Aspirin Enteric Coated 81 MG TABLET.DR PO (08:35)
[2021-12-24] MEDS: hydroCHLOROthiazide 12.5 MG TABLET PO (08:35)
[2021-12-24] MEDS: Ezetimibe 10 MG TABLET PO (08:35)
[2021-12-24] MEDS: Gabapentin 100 MG CAPSULE PO (08:35)
[2021-12-24] MEDS: amLODIPine Besylate 2.5 MG TABLET PO (08:35)
[2021-12-24] MEDS: Cholecalciferol (Vitamin D3) 25 MCG TABLET PO (08:36)
[2021-12-24] MEDS: Enoxaparin Sodium 40 MG/0.4 ML SYRINGE SUBCUT (08:36)
[2021-12-24] MEDS: lisinopriL 10 MG TABLET PO (08:36)
--- NOTE | 2021-12-24 09:48 | PM.CNCAR ---
History of Present Illness History of Present Illness Date of Service: 12/24/21 Chief complaint: CVA Narrative: This is a cardiology consultation regarding abnormal echocardiogram. Patient admitted with a diagnosis of stroke. Echocardiogram was performed for that reason and that showed basal inferior/inferolateral akinesis. Hence we have been asked to see her. Per documentation, has history of hypertension, hyperlipidemia, diabetes and prior strokes. Current admission is again for left-sided weakness but per neurology note, no evidence of new stroke. From the cardiac standpoint, she denies any history of coronary disease, myocardial infarction in fact anything cardiac related at all. She also denies any anginal-type symptoms or any other cardiac symptoms. Review of Systems Review of Systems: Yes all other systems are reviewed and are negative Constitutional: Constitutional: Reports as per HPI Eyes: Eyes: Reports as per HPI ENT: Reports as per HPI Cardiovascular: Cardiovascular: Reports as per HPI, Denies acrocyanosis, Denies cool extremities, Denies chest pain, Denies leg edema, Denies lightheadedness, Denies palpitations and Denies dyspnea Respiratory: Respiratory: Reports as per HPI, Reports no additional respiratory complaints and Denies dyspnea Gastrointestinal: Gastrointestinal: Reports as per HPI and Reports no additional gastrointestinal complaints Genitourinary: Genitourinary: Reports as per HPI Musculoskeletal: Musculoskeletal: Reports no additional musculoskeletal complaints and Reports as per HPI Integumentary/Breasts: Skin/Breast: Reports system reviewed and no additional complaints, except as docu Neurologic: Reports system reviewed and no additional complaints, except as documented and Reports as per HPI Psychiatric: Psychiatric: Reports no additional psychiatric complaints and Reports as per HPI Endocrine: Endocrine: Reports no additional endocrine complaints, Reports as per HPI and Denies palpitations Hematologic/Lymphatic: Hematologic/Lymphatic: Reports no additional hematologic/lymphatic complaints and Reports as per HPI Allergic/Immunologic: Allergic/Immunologic: Reports no additional allergic/immunologic complaints and Reports as per HPI PMF Past Medical History Medical History Anemia Asthma Cancer CVA (cerebral vascular accident) Depression Diabetes with retinopathy Dizziness Dyslipidemia Essential hypertension GERD (gastroesophageal reflux disease) History of degenerative joint disease Hx: UTI (urinary tract infection) Intracranial atherosclerosis Mass of right parotid gland Menopause Normocytic normochromic anemia Parotid mass Sleep apnea Tubular adenoma of colon Type 2 diabetes mellitus without complication, without long-term current use of insulin UTI (urinary tract infection) Vitamin D deficiency Family History Family History Father Cancer Mother Cancer Myocardial infarction Family/Other Diabetes Surgical History Surgical History History of carpal tunnel release History of total abdominal hysterectomy Hx of cholecystectomy Hx of colonoscopy Hx of endoscopy Hx of hand surgery Social History Social History Household Members: Spouse Housing: Apartment Do you presently have visiting nurse or other home services: Yes Alcohol intake: current Alcohol intake frequency: holidays/special occasions only Patient Tobacco Use Status: Never used Tobacco e-Cigarette/Vaping Use: Never Used Advance Directives: Yes Advance Directives on File: Yes Advance Directives Date on File: 01/20/21 service: No Current occupational status: disabled Current occupation: rt handed Meds Allergies Allergy/AdvReac Type Severity Reaction Status Date / Time No Known Allergies Allergy Verified 06/17/21 09:20 [No Known Allergies*] Active Medications: Current Medications Acetaminophen (Acetaminophen 325 Mg Tablet) 650 mg PO Q6H PRN PRN Reason: Pain, Mild (Pain Scale 1-3), Last Admin: 12/23/21 08:37 Dose: 650 mg Amlodipine Besylate (Amlodipine Besylate 2.5 Mg Tablet) 2.5 mg PO DAILY [facility]; Protocol Last Admin: 12/24/21 08:35 Dose: 2.5 mg Aspirin (Aspirin Enteric Coated 81 Mg Tablet.) 81 mg PO DAILY [facility] Last Admin: 12/24/21 08:35 Dose: 81 mg Atorvastatin Calcium (Atorvastatin Calcium 40 Mg Tablet) 40 mg PO BEDTIME [facility] Last Admin: 12/23/21 21:12 Dose: 40 mg Cyanocobalamin (Cyanocobalamin (Vitamin B-12) 1,000 Mcg Tablet) 1,000 mcg PO DAILY [facility] Last Admin: 12/24/21 08:35 Dose: 1,000 mcg Dextrose (Dextrose 50 % 25 Gm/50 Ml Syringe) 25 gm IVPUSH Q15M PRN; Protocol PRN Reason: per Hypoglycemia Standing Ord. Ezetimibe (Ezetimibe 10 Mg Tablet) 10 mg PO DAILY [facility] Last Admin: 12/24/21 08:35 Dose: 10 mg Enoxaparin Sodium (Enoxaparin Sodium 40 Mg/0.4 Ml Syringe) 40 mg SUBCUT Q24H [facility] Last Admin: 12/24/21 08:36 Dose: 40 mg Gabapentin (Gabapentin 100 Mg Capsule) 100 mg PO DAILY [facility] Last Admin: 12/24/21 08:35 Dose: 100 mg Glucose (Glucose Gel 15 Gm Gel..Gram.) 15 gm PO Q15M PRN; Protocol PRN Reason: per Hypoglycemia Standing Ord. Hydrochlorothiazide (Hydrochlorothiazide 12.5 Mg Tablet) 12.5 mg PO DAILY [facility]; Protocol Last Admin: 12/24/21 08:35 Dose: 12.5 mg Insulin Human Lispro (Insulin Lispro 100 Unit/Ml 3 Ml Vial) 0 unit SUBCUT QIDACHS [facility]; Protocol Last Admin: 12/24/21 07:28 Dose: Not Given Lisinopril (Lisinopril 10 Mg Tablet) 10 mg PO DAILY [facility] Last Admin: 12/24/21 08:36 Dose: 10 mg Ondansetron HCl (Ondansetron Odt 4 Mg Tab.Rapdis) 4 mg TRANSLINGU Q6H PRN PRN Reason: Nausea And Vomiting Pharmacy Consult (Consult Rx Perform Med Rec) 1 each MISCELLANE ONCE PRN PRN Reason: Consult order Sodium Chloride (0.9 % Sodium Chloride Flush 3 Ml Syringe) 3 ml IVFLUSH QSHIFT [facility] Last Admin: 12/24/21 08:35 Dose: Not Given Vitamin D (Cholecalciferol (Vitamin D3) 25 Mcg Tablet) 25 mcg PO DAILY [facility] Last Admin: 12/24/21 08:36 Dose: 25 mcg Home Medications Medication Instructions Recorded Confirmed Last Taken Type gabapentin 100 mg capsule 100 mg PO DAILY 07/19/20 12/22/21 12/22/21 History dulaglutide 0.75 mg/0.5 mL 0.75 mg subcut TU@0900 12/22/21 12/22/21 Unknown History subcutaneous pen injector (Trulicity) ondansetron HCl 4 mg tablet 4 mg PO Q6H PRN Nausea And Vomiting 12/22/21 12/22/21 Unknown History Physical Exam Vital Signs: Vital Signs: Last Vital Signs Temp 96.5 F L 12/24/21 04:00 Pulse 60 12/24/21 04:00 Resp 12 12/24/21 04:00 BP 100/62 12/24/21 04:00 Pulse Ox 98 12/24/21 04:00 O2 Del Method 12/24/21 04:00 BMI result Body Mass Index 32.8 Const: General: comfortable and no acute distress Orientation/consciousness: patient oriented x3 HEENT: Other: Unremarkable Head: Yes normal to inspection Neck: Neck: Yes normal visual inspection Chest: Chest palpation & inspection: normal inspection of the chest Resp: Auscultation: clear to auscultation bilaterally Cardio: Palpation: normal PMI Heart sounds: S1 normal heart sound present, S2 normal heart sound present, no gallops, no murmurs and no rubs GI: Palpation (GI): Soft to palpation Back/Spine/Pelvis: Other: unremarkable Skin: General skin exam: no rashes or lesions noted Neuro: Other: Left-sided weakness. General: patient oriented x3 Extrem: General: Yes normal to inspection Psych: Mental Status: mental status grossly normal Objective Labs and Meds Result diagrams: 12/22/21 15:58 12/22/21 15:58 Lab results: Laboratory Results - last 24 hr 12/23/21 12/23/21 12/23/21 11:43 12:31 17:07 POC Glucose 110 105 Triglycerides 80 Cholesterol 202 D LDL Cholesterol, Calc 129 HDL Cholesterol 57 D 12/23/21 12/24/21 21:08 07:17 POC Glucose 106 105 Triglycerides Cholesterol LDL Cholesterol, Calc HDL Cholesterol ECG Interpretation: EKG with normal sinus rhythm at 67/Min; no significant ST-T changes and otherwise unremarkable. Assessment and Plan (1) Atherosclerotic cardiovascular disease: Status: Acute (2) TIA (transient ischemic attack): Status: Acute (3) Acute CVA (cerebrovascular accident): Status: Acute (4) Essential hypertension: Status: Acute (5) Type 2 diabetes mellitus without complication, without long-term current use of insulin: Status: Acute (6) History of stroke: Status: Acute (7) Dyslipidemia: Status: Acute Plan Echocardiogram with inferior/inferolateral akinesis which could indicate prior myocardial infarction but EKG is not showing that. CTA of the head and neck shows atheromatous disease in cervical and intracranial vasculature. Hence there is increased likelihood of concurrent coronary disease as well. She also has numerous cardiovascular risk factors including diabetes, hypertension, dyslipidemia. At this time, she has no acute cardiac symptoms. We will arrange an outpatient stress test after discharge and then follow up. Discussed with Dr. Rodriguez. Procedures Date of Service Date of Service: 12/24/21
--- NOTE | 2021-12-24 11:59 | PC.NURSE ---
Pt is A&Ox4, LCA, L sided weakness which is baseline from PMHX of CVA. VS as charted, no complaints of pain at this time. Pt is NSR in the 60's on the montior. Call inman within reach. Will continue to monitor.
[2021-12-24 13:16] VITALS: BP 112/71; PULSE 69; RESP 12
[2021-12-24 13:22] LABS: Glucose, Whole Blood 102 mg/dL (60-115)
--- NOTE | 2021-12-24 14:54 | PM.DS ---
DS: Providers Provider Date of Service: 12/24/21 Date of admission: 12/22/21 14:52 Date of discharge: 12/24/21 Primary care physician: María Cooper MD Consults: 12/22/21 14:54 Consult to Neurology Routine Consulting Provider: [facility] Reason for consultation: possible cva Has provider been notified: No 12/23/21 18:07 Consult to Cardiology Routine Consulting Provider: [facility] Reason for consultation: abnormal echo Has provider been notified: No DS: Diagnosis Discharge Diagnosis (1) Atherosclerotic cardiovascular disease: Status: Acute (2) TIA (transient ischemic attack): Status: Acute (3) Acute CVA (cerebrovascular accident): Status: Acute (4) Essential hypertension: Status: Acute (5) Type 2 diabetes mellitus without complication, without long-term current use of insulin: Status: Acute (6) History of stroke: Status: Acute (7) Dyslipidemia: Status: Acute DS: Summary Hospital Course Hospital Course: 55-year-old female with a past medical history Of hypertension, hyperlipidemia, diabetes, anxiety, depression, vitamin-D deficiency, GERD, history of CVA, anemia, asthma, Elan -patient came to the hospital because of stroke-like symptoms, patient says that she has left hemiparesis but feeling more weak this morning and the also had mild facial droop, patient said that she went to [facility] night and she woke up with with worsening weakness and facial droop.? She says that her weakness is improving left-sided. Hospital Course patient admitted to telemetry. CTA of head neck failed to demonstrate any acute disease. MRI of the brain demonstrated no acute infarction. She was seen by Neurology who recommended baby aspirin daily and aggressive blood pressure control for which amlodipine was added. She will follow-up with PCP in 2-3 weeks for reassessment of her blood pressure in further treatment Time Spent with Patient Time attestation: Total time spent providing and/or coordinating discharge services: Discharge coordination time: Greater than 30 minutes Quality: Safe Use of Opioids Does Pt have an Active Cancer Diagnosis on the Problem List?: No Quality: Stroke Does the patient have a stroke diagnosis?: No Physical Exam Vital Signs: Vital Signs: Last Vital Signs Temp 96.5 F L 12/24/21 04:00 Pulse 69 12/24/21 13:16 Resp 12 08/24/22 13:16 BP 112/71 12/24/21 13:16 Pulse Ox 98 12/24/21 04:00 O2 Del Method 12/24/21 04:00 BMI result Body Mass Index 32.8 Const: Other: awake alert oriented x3 Resp: Other: clear to auscultation bilaterally no rales rhonchi or wheezes Cardio: Other: no S4; positive S1-S2; no S3 murmurs rubs gallops GI: Other: soft nontender nondistended normoactive bowel sounds Neuro: Other: cranial nerves 2-12 grossly intact as tested (old facial droop; mild left hemiparesis at baseline ) Extrem: Other: no edema DS: Data Data Completed and Pending Labs on day of discharge: Laboratory Results - last 24 hr 12/23/21 12/23/21 12/24/21 17:07 21:08 07:17 POC Glucose 105 106 105 12/24/21 13:16 POC Glucose 102 Discharge Plan Discharge Patient Disposition: Home, Self-Care Discharge Diagnosis: TIA Referrals: María Cooper MD [Primary Care Provider] - 1 Week Discharge Medications: New amlodipine 2.5 mg Tablet 2.5 mg PO DAILY Qty: 30 0RF Protocol: Hold for SBP< HOLD for SBP < : 90 aspirin 81 mg Tablet,Delayed Release (Dr/Ec) 81 mg PO DAILY Qty: 30 0RF Continued cholecalciferol (vitamin D3) [Vitamin D3] 25 mcg (1,000 unit) capsule 25 mcg PO DAILY Qty: 90 0RF lisinopril-hydrochlorothiazide 10-12.5 mg tablet 1 tab PO DAILY Qty: 90 3RF ezetimibe 10 mg tablet 10 mg PO DAILY Qty: 30 0RF Rx Instructions: NEED SCHEDULED APPOINTMENT FOR FUTURE REFILLS (DME) FreeStyle Lite Strips Strip See Rx Instructions .ROUTE .MEDSUPPLY Qty: 300 1RF Rx Instructions: use 1 strip three times a day ibuprofen 600 mg tablet 600 mg PO BID PRN (Reason: for pain) Qty: 40 0RF atorvastatin 40 mg Tablet 40 mg PO BEDTIME Qty: 30 0RF cyanocobalamin (vitamin B-12) [Vitamin B-12] 1,000 mcg Tablet 1,000 mcg PO DAILY Qty: 90 3RF Trulicity 0.75 mg/0.5 mL pen injector 0.75 mg subcut TU@0900 ondansetron HCl 4 mg tablet 4 mg PO Q6H PRN (Reason: Nausea And Vomiting) gabapentin 100 mg capsule 100 mg PO DAILY (DME) blood-glucose meter [FreeStyle Lite Meter] Kit See Rx Instructions .ROUTE .MEDSUPPLY Qty: 1 0RF Rx Instructions: Three times a day metformin 500 mg tablet 500 mg PO DAILY Qty: 90 1RF Januvia 100 mg tablet 100 mg PO DAILY Qty: 90 1RF (DME) lancing device Misc See Rx Instructions .ROUTE .MEDSUPPLY Qty: 1 0RF Rx Instructions: As directed Discharge Orders: Discharge Order (Routine); Ordered 12/24/21 Ordered By: Feliz Rodriguez Diet: Advance to usual diet Activity on Discharge: As tolerated Stand Alone Forms: Patient Portal Discharge page Care Plan Goals: take daily aspirin and amlodipine as ordered Health Concerns: continue all pre-hospital medicines Plan of Treatment: follow-up PCP 2 weeks Assessment: see history and physical discharge summary
--- NOTE | 2021-12-24 14:59 | MHC.CM.PN ---
pt dcd home no skilled servceis ordered by
== END 2021-12-24 16:40 | disposition home or self-care (01) | DRG 69 ==
LOC: HO.ED 15:26 → HO.EDOVER 15:30
PROVIDERS: Admitting Provider Internal Medicine; Emergency Provider Emergency Medicine; PCP Internal Medicine; Visit Provider Hospitalist
DX: G45.9 Transient cerebral ischemic attack, unspecified (principal); I69.354 Hemiplegia and hemiparesis following cerebral infarction affecting left non-dominant side; Z85.42 Personal history of malignant neoplasm of other parts of uterus; K21.9 Gastro-esophageal reflux disease without esophagitis; I10 Essential (primary) hypertension; F41.9 Anxiety disorder, unspecified; K11.8 Other diseases of salivary glands; I25.10 Atherosclerotic heart disease of native coronary artery without angina pectoris; F32.A Depression, unspecified; G47.33 Obstructive sleep apnea (adult) (pediatric); E78.5 Hyperlipidemia, unspecified; E11.9 Type 2 diabetes mellitus without complications; Z79.82 Long term (current) use of aspirin; Z79.84 Long term (current) use of oral hypoglycemic drugs; Z79.899 Other long term (current) drug therapy
CPT/HCPCS: 36415; 70450; 70496; 70498; 70551; 80053; 80061; 82947; 84484; 85025; 85610; 85730; 87635; 92610; 93005; 93306; 97162; 99285; J1650; Q9967

== ENCOUNTER 2022-02-15 20:02 | Emergency (ER) | payer OTHER, SELFPAY ==
[2022-02-15 20:19] VITALS: BP 137/65; BP 146/76; PULSE 68; PULSE 76; RESP 19; TEMP 36.9; O2SAT 100; O2SAT 97; BMI 29.4
[2022-02-15 20:31] VITALS: BP 120/55; PULSE 70; RESP 20; TEMP 36.4; O2SAT 99
[2022-02-15 20:57] LABS: MANUAL DIFF FLAG NO
--- NOTE | 2022-02-15 20:57 | PC.NURSE ---
Pt. resting in bed with family at bedside. Pt. moaning in pain at 10/10 in the epigastric abdominal region. IV placed and labs drawn.
[2022-02-15 20:58] LABS: Basophils Percent Auto 0.1 % (0-2); Eosinophils Percent Auto 0.3 % (0-4); Hematocrit 40.1 % (37.0-47.0); Hemoglobin 13.1 g/dl (12.0-16.0); Imm Gran Abs Auto 0.04 X10*3/uL (0.00-0.03); Imm Gran Pct Auto 0.3 % (0.0-0.4); Lymphocytes Absolute Auto 1.5 X10*3/uL (1.2-4.9); Lymphocytes Percent Auto 11.3 % (20-40); Mean Corpuscular HGB Conc 32.7 g/dl (31.0-35.0); Mean Corpuscular Hemoglobin 27.4 pg (27.0-33.0); Mean Corpuscular Volume 83.9 fL (80.0-98.0); Mean Platelet Volume 11.6 fL (9.4-12.3); Monocytes Absolute Auto 0.8 X10*3/uL (0.1-1.2); Monocytes Percent Auto 6.1 % (2-11); Neutrophils Absolute Auto 11.1 x10*3/uL (2.0-8.3); Neutrophils Percent Auto 81.9 % (45-73); Platelet Count 184 X10*3/uL (160-400); Red Blood Count 4.78 X10*6/uL (4.20-5.50); Red Cell Distribution Width 12.9 % (11.0-16.0); White Blood Count 13.5 X10*3/uL (4.8-10.8)
--- NOTE | 2022-02-15 20:58 | ED_ITS ---
HPI - Abdominal Pain General Chief Complaint: Abdominal Pain Stated Complaint: left upper abd pain Time Seen by Provider: 02/15/22 20:55 Source: patient Mode of arrival: ambulatory Limitations: no limitations History of Present Illness HPI narrative: Patient history of hypertension diabetes TIA , UTI status post cholecystectomy complaining of pain in mid abdomen in epigastric area for last few hours with dry heaving and nausea no vomiting no abdominal distension no diarrhea no history of similar symptoms in the past no urinary complaints. No fever no chills Related Data Home Medications Medication Instructions Recorded Confirmed gabapentin 100 mg capsule 100 mg PO DAILY 07/19/20 12/22/21 dulaglutide 0.75 mg/0.5 mL 0.75 mg subcut TU@0900 12/22/21 12/22/21 [facility] ondansetron HCl 4 mg tablet 4 mg PO Q6H PRN Nausea And Vomiting 12/22/21 12/22/21 Previous Rx's Medication Instructions Recorded cholecalciferol (vitamin D3) 25 25 mcg PO DAILY #90 caps 10/13/20 mcg (1,000 unit) capsule (Vitamin D3) atorvastatin 40 mg tablet 40 mg PO BEDTIME #30 tabs 01/16/21 cyanocobalamin (vitamin B-12) 1,000 mcg PO DAILY #90 tabs 01/21/21 1,000 mcg tablet (Vitamin B-12) ezetimibe 10 mg tablet 10 mg PO DAILY #30 tabs 04/23/21 lancing device #1 ea 08/13/21 metformin 500 mg tablet 500 mg PO DAILY #90 tabs 08/13/21 sitagliptin 100 mg tablet (Januvia) 100 mg PO DAILY #90 tabs 08/13/21 amlodipine 2.5 mg tablet 2.5 mg PO DAILY #30 tabs 12/24/21 aspirin 81 mg tablet,delayed 81 mg PO DAILY #30 tabs 12/24/21 release blood sugar diagnostic (FreeStyle #100 ea 01/19/22 Lite Strips) blood-glucose meter (FreeStyle #1 ea 01/19/22 Lite Meter kit) ibuprofen 600 mg tablet 600 mg PO BID PRN for pain #40 tabs 02/13/22 lisinopril 10 1 tab PO DAILY #90 tabs 02/13/22 mg-hydrochlorothiazide 12.5 mg tablet ondansetron 4 mg disintegrating 4 mg PO Q6-8H PRN nausea and 02/16/22 tablet vomiting #7 tabs Allergies Allergy/AdvReac Type Severity Reaction Status Date / Time No Known Allergies Allergy Verified 02/15/22 20:19 [No Known Allergies*] Review of Systems Review of Systems Yes all other systems are reviewed and are negative [facility] Past Medical History Medical History Asthma Atherosclerotic cardiovascular disease Cancer Depression Diabetes with retinopathy Dyslipidemia Essential hypertension GERD (gastroesophageal reflux disease) History of CVA with residual deficit History of degenerative joint disease History of stroke Intracranial atherosclerosis Mass of right parotid gland Normocytic normochromic anemia Sleep apnea Tubular adenoma of colon Type 2 diabetes mellitus without complication, without long-term current use of insulin Vitamin D deficiency Surgical History History of carpal tunnel release History of total abdominal hysterectomy Hx of cholecystectomy Hx of colonoscopy Hx of endoscopy Hx of hand surgery Family History Family History Father Cancer Mother Cancer Myocardial infarction Family/Other Diabetes Social History Social History Household Members: Spouse Housing: Apartment Do you presently have visiting nurse or other home services: Yes Alcohol intake: current Alcohol intake frequency: holidays/special occasions only Patient Tobacco Use Status: Never used Tobacco e-Cigarette/Vaping Use: Never Used Advance Directives: Yes Advance Directives on File: Yes Advance Directives Date on File: 01/20/21 service: No Current occupational status: disabled Current occupation: rt handed Cognitive needs: No Hearing needs: No Vision needs: No Physical Exam ED Vital Signs: Vital Signs - 24 hr 02/15/22 20:19 02/15/22 20:31 02/15/22 21:31 Temperature 98.5 F 97.6 F Pulse Rate 68 70 72 Respiratory Rate 19 20 16 Blood Pressure 137/65 120/55 L 166/77 H Pulse Oximetry 97 99 98 Oxygen Delivery Method Room Air Room Air Room Air 02/15/22 23:55 Temperature Pulse Rate 64 Respiratory Rate 17 Blood Pressure 125/55 L Pulse Oximetry 100 Oxygen Delivery Method Room Air BMI result Body Mass Index 29.4 Appearance: Alert. Oriented X3. No acute distress. Eyes: PERRLA, No Nystagmus ENT: Pharynx normal. Oral Mucosa moist Neck: Normal inspection. Neck supple. CVS: Normal heart rate and rhythm. Pulses normal. Respiratory: No respiratory distress. Equal air entry bilateral, no wheezing/rales/rhonchi Abdomen: Soft, tenderness mid abdomen no rebound tenderness or guarding Bowel sounds are present, no mass palpable, no CVA tenderness Skin: Skin warm and dry. Normal skin color. Normal skin turgor. Extremities: No lower extremity edema. No calf tenderness Neuro: Oriented X 3. No motor deficit. MDM - Abdominal Pain MDM Narrative Medical decision making narrative: Patient just had a CT scan abdomen on 01/28 which was negative patient feeling much better now taking p.o. fluids likely unknown etiology for the abdominal pain Differential Diagnosis Differential diagnosis: Likely abdominal pain Lab Data Attestation: I reviewed the patient's lab results. Result diagrams: 02/15/22 20:53 02/15/22 20:53 Labs: Lab Results 02/15/22 02/15/22 02/15/22 Range/Units 20:53 20:53 23:53 WBC 13.5 H (4.8-10.8) X10*3/uL RBC 4.78 (4.20-5.50) X10*6/uL Hgb 13.1 (12.0-16.0) g/dl Hct 40.1 (37.0-47.0) % MCV 83.9 (80.0-98.0) fL MCH 27.4 (27.0-33.0) pg MCHC 32.7 (31.0-35.0) g/dl RDW 12.9 (11.0-16.0) % Plt Count 184 (160-400) X10*3/uL MPV 11.6 (9.4-12.3) fL Immature Gran % (Auto) 0.3 (0.0-0.4) % Neut % (Auto) 81.9 H (45-73) % Lymph % (Auto) 11.3 L (20-40) % Yell % (Auto) 6.1 (2-11) % Eos % (Auto) 0.3 (0-4) % Baso % (Auto) 0.1 (0-2) % Lymph # (Auto) 1.5 (1.2-4.9) X10*3/uL Yell # (Auto) 0.8 (0.1-1.2) X10*3/uL Eos # (Auto) 0.0 (0.0-0.4) X10*3/uL Baso # (Auto) 0.0 (0.0-0.2) X10*3/uL Abs Immat Gran (auto) 0.04 H (0.00-0.03) X10*3/uL Absolute Neuts (auto) 11.1 H (2.0-8.3) x10*3/uL Absolute Nucleated RBC 0.000 (0.0-0.012) X10*3/uL Nucleated RBC % (auto) 0.0 (0.0-0.2) /100WBC Sodium 137 (135-145) mmol/L Potassium 4.1 (3.3-5.1) mmol/L Chloride 98 (96-108) mmol/L Carbon Dioxide 26 (22-29) mmol/L Anion Gap 17 (12-20) BUN 19 H (9-16) mg/dL Creatinine 0.76 (0.5-1.4) mg/dL Estim Creat Clear Calc 75.5 Estimated GFR > 60 POC Glucose (60-115) mg/dL Random Glucose 131 H (60-115) mg/dL Calcium 9.3 D (8.4-10.2) mg/dL Total Bilirubin 0.3 (0.0-1.0) mg/dL Direct Bilirubin < 0.2 (0.0-0.5) mg/dL AST 19 (5-31) U/L ALT 14 (0-31) U/L Alkaline Phosphatase 80 (39-117) U/L Total Protein 8.1 H (6.5-8.0) g/dL Albumin 4.1 (3.5-5.0) g/dL Lipase 30 (8-78) U/L Urine Color Yellow Urine Appearance Clear Urine pH 5.5 (5.0-9.0) Ur Specific [place] 1.015 (1.005-1.025) Urine Protein Negative (Neg-Trace) mg/dL Urine Glucose (UA) Negative (Negative) mg/dL Urine Ketones Negative (Negative) mg/dL Urine Blood Negative (Negative) Urine Nitrite Negative (Negative) Ur Leukocyte Esterase Small (1+) H (Negative) Urine RBC 0-2 (0-2) /HPF Urine WBC 0-5 (0-5) /HPF Ur Squamous Epith Cells 0-2 (0-2) /HPF Urine Bacteria None Seen (None Seen) Hyaline Casts 3-5 (0-2) /LPF 02/15/22 Range/Units 23:54 WBC (4.8-10.8) X10*3/uL RBC (4.20-5.50) X10*6/uL Hgb (12.0-16.0) g/dl Hct (37.0-47.0) % MCV (80.0-98.0) fL MCH (27.0-33.0) pg MCHC (31.0-35.0) g/dl RDW (11.0-16.0) % Plt Count (160-400) X10*3/uL MPV (9.4-12.3) fL Immature Gran % (Auto) (0.0-0.4) % Neut % (Auto) (45-73) % Lymph % (Auto) (20-40) % Yell % (Auto) (2-11) % Eos % (Auto) (0-4) % Baso % (Auto) (0-2) % Lymph # (Auto) (1.2-4.9) X10*3/uL Yell # (Auto) (0.1-1.2) X10*3/uL Eos # (Auto) (0.0-0.4) X10*3/uL Baso # (Auto) (0.0-0.2) X10*3/uL Abs Immat Gran (auto) (0.00-0.03) X10*3/uL Absolute Neuts (auto) (2.0-8.3) x10*3/uL Absolute Nucleated RBC (0.0-0.012) X10*3/uL Nucleated RBC % (auto) (0.0-0.2) /100WBC Sodium (135-145) mmol/L Potassium (3.3-5.1) mmol/L Chloride (96-108) mmol/L Carbon Dioxide (22-29) mmol/L Anion Gap (12-20) BUN (9-16) mg/dL Creatinine (0.5-1.4) mg/dL Estim Creat Clear Calc Estimated GFR POC Glucose 188 H (60-115) mg/dL Random Glucose (60-115) mg/dL Calcium (8.4-10.2) mg/dL Total Bilirubin (0.0-1.0) mg/dL Direct Bilirubin (0.0-0.5) mg/dL AST (5-31) U/L ALT (0-31) U/L Alkaline Phosphatase (39-117) U/L Total Protein (6.5-8.0) g/dL Albumin (3.5-5.0) g/dL Lipase (8-78) U/L Urine Color Urine Appearance Urine pH (5.0-9.0) Ur Specific [place] (1.005-1.025) Urine Protein (Neg-Trace) mg/dL Urine Glucose (UA) (Negative) mg/dL Urine Ketones (Negative) mg/dL Urine Blood (Negative) Urine Nitrite (Negative) Ur Leukocyte Esterase (Negative) Urine RBC (0-2) /HPF Urine WBC (0-5) /HPF Ur Squamous Epith Cells (0-2) /HPF Urine Bacteria (None Seen) Hyaline Casts (0-2) /LPF Discharge Plan Discharge Clinical Impression: Abdominal pain Patient Disposition: Home, Self-Care Instructions: Acute Abdominal Pain (ED) Additional Instructions: Etiology of abdominal pain is not very clear Drink plenty of fluids Medicine for nausea as prescribed Report to the ER if recurrence of pain Prescriptions: New ondansetron 4 mg tablet,disintegrating 4 mg PO Q6-8H PRN (Reason: nausea and vomiting) Qty: 7 0RF No Action cholecalciferol (vitamin D3) [Vitamin D3] 25 mcg (1,000 unit) capsule 25 mcg PO DAILY Qty: 90 0RF ezetimibe 10 mg tablet 10 mg PO DAILY Qty: 30 0RF Rx Instructions: NEED SCHEDULED APPOINTMENT FOR FUTURE REFILLS (DME) blood-glucose meter [FreeStyle Lite Meter] Kit See Rx Instructions .ROUTE .MEDSUPPLY Qty: 1 0RF Rx Instructions: Three times a day (DME) FreeStyle Lite Strips Strip See Rx Instructions .ROUTE .MEDSUPPLY Qty: 100 1RF Rx Instructions: test blood sugar once a day ibuprofen 600 mg tablet 600 mg PO BID PRN (Reason: for pain) Qty: 40 0RF lisinopril-hydrochlorothiazide 10-12.5 mg tablet 1 tab PO DAILY Qty: 90 0RF atorvastatin 40 mg Tablet 40 mg PO BEDTIME Qty: 30 0RF cyanocobalamin (vitamin B-12) [Vitamin B-12] 1,000 mcg Tablet 1,000 mcg PO DAILY Qty: 90 3RF Trulicity 0.75 mg/0.5 mL pen injector 0.75 mg subcut TU@0900 ondansetron HCl 4 mg tablet 4 mg PO Q6H PRN (Reason: Nausea And Vomiting) amlodipine 2.5 mg Tablet 2.5 mg PO DAILY Qty: 30 0RF Protocol: Hold for SBP< HOLD for SBP < : 90 aspirin 81 mg Tablet,Delayed Release (Dr/Ec) 81 mg PO DAILY Qty: 30 0RF gabapentin 100 mg capsule 100 mg PO DAILY metformin 500 mg tablet 500 mg PO DAILY Qty: 90 1RF Januvia 100 mg tablet 100 mg PO DAILY Qty: 90 1RF (DME) lancing device Misc See Rx Instructions .ROUTE .MEDSUPPLY Qty: 1 0RF Rx Instructions: As directed Interventions: ED Discharge Assessment Last Done: 02/16/22 00:55 Discharge Date/Time: 02/16/22 00:56
[2022-02-15] MEDS: Morphine Sulfate 4 MG/ML CARTRIDGE IVPUSH (21:25)
[2022-02-15] MEDS: ondansetron HCL 4 MG/2 ML VIAL IVPUSH (21:25)
[2022-02-15 21:31] VITALS: BP 166/77; PULSE 72; RESP 16; O2SAT 98
[2022-02-15 21:34] LABS: Alanine Aminotransferase 14 U/L (0-31); Albumin Level 4.1 g/dL (3.5-5.0); Alkaline Phosphatase 80 U/L (39-117); Anion Gap 17 (12-20); Aspartate Amino Transferase 19 U/L (5-31); Bilirubin Direct < 0.2 mg/dL (0.0-0.5); Bilirubin Total 0.3 mg/dL (0.0-1.0); Blood Urea Nitrogen 19 mg/dL (9-16); Calcium 9.3 mg/dL (8.4-10.2); Carbon Dioxide 26 mmol/L (22-29); Chloride 98 mmol/L (96-108); Creatinine Clr Calc Pharmacy 75.5; Estimated Glomerular Filt Rate > 60; Glucose Random 131 mg/dL (60-115); Lipase 30 U/L (8-78); Potassium 4.1 mmol/L (3.3-5.1); Sodium 137 mmol/L (135-145); Total Protein 8.1 g/dL (6.5-8.0)
[2022-02-15 23:55] VITALS: BP 125/55; PULSE 64; RESP 17; O2SAT 100
[2022-02-15 23:58] LABS: Glucose, Whole Blood 188 mg/dL (60-115)
[2022-02-16 00:01] LABS: Appearance Urine Clear; Color Urine Yellow; Glucose Urine UA Negative (Negative); Leukocyte Esterase Urine Small (1+) (Negative); Nitrite Urine Negative (Negative); PH 5.5 (5.0-9.0); Specific Gravity - Urine 1.015 (1.005-1.025); UMIC TRIGGER UACC YES; Urine Blood Negative (Negative); Urine Ketones Negative (Negative); Urine Protein Negative (Neg-Trace)
[2022-02-16 00:14] LABS: Bacteria Urine None Seen (None Seen); RBC Urine 0-2 /HPF (0-2); Squamous Epithelial Cell Urine 0-2 /HPF (0-2); UACC Culture Trigger YES; WBC Urine 0-5 /HPF (0-5)
== END 2022-02-16 00:56 | disposition home or self-care (01) ==
PROVIDERS: Emergency Provider Internal Medicine
DX: R10.12 Left upper quadrant pain (principal); E11.9 Type 2 diabetes mellitus without complications; I10 Essential (primary) hypertension; Z79.84 Long term (current) use of oral hypoglycemic drugs; Z79.811 Long term (current) use of aromatase inhibitors; Z79.899 Other long term (current) drug therapy
CPT/HCPCS: 36415; 80048; 80076; 81001; 81003; 82947; 83690; 85025; 87086; 87147; 96374; 96375; 99284; J2270; J2405

== ENCOUNTER → 2022-03-19 09:29 | Outpatient (BNVA) | payer OTHER, SELFPAY | PROVIDERS: Visit Provider Internal Medicine | DX: I63.9 Cerebral infarction, unspecified (principal); I25.10 Atherosclerotic heart disease of native coronary artery without angina pectoris; I10 Essential (primary) hypertension; E11.8 Type 2 diabetes mellitus with unspecified complications | CPT/HCPCS: 99212 ==

== ENCOUNTER 2022-04-10 14:46 | Outpatient (REF) | payer OTHER, SELFPAY ==
[2022-04-10 15:50] LABS: Influenza A PCR POSITIVE (Negative); Influenza B PCR NEGATIVE (Negative); Resp Syncy Virus RNA Qual PCR NEGATIVE (Negative); SARS COV2 PCR INHOUSE NEGATIVE (Negative)
== END 2022-04-10 14:47 | disposition home or self-care (01) ==
LOC: HO.LNP 14:46
DX: Z20.822 Contact with and (suspected) exposure to COVID-19 (principal); J06.9 Acute upper respiratory infection, unspecified
CPT/HCPCS: 0241U

== ENCOUNTER → 2022-05-21 08:41 | Outpatient (BNVA) | payer OTHER, SELFPAY | PROVIDERS: Visit Provider Physician Assistant | DX: M19.011 Primary osteoarthritis, right shoulder (principal) | CPT/HCPCS: 20610; 99212; J1020 ==

== ENCOUNTER 2022-06-08 12:20 | Outpatient (REF) | payer OTHER, SELFPAY ==
[2022-06-08 14:36] LABS: Estimated Average Glucose 157 mg/dL; Hemoglobin A1c % 7.1 %
[2022-06-08 14:43] LABS: Creatinine Urine 138.97 mg/dL; Microalbum/Creatinine Ratio Ur 83.4 ug/mg cr
[2022-06-08 14:47] LABS: Alanine Aminotransferase 15 U/L (0-31); Anion Gap 13 (12-20); Aspartate Amino Transferase 17 U/L (5-31); Blood Urea Nitrogen 22 mg/dL (9-16); Calcium 9.5 mg/dL (8.4-10.2); Carbon Dioxide 29 mmol/L (22-29); Chloride 107 mmol/L (96-108); Cholesterol 225 mg/dL; Estimated Glomerular Filt Rate > 60; Glucose Fasting 140 mg/dL (60-99); HDL Cholesterol 62 mg/dL; LDL Cholesterol Calculated 151 mg/dl; Potassium 4.5 mmol/L (3.3-5.1); Sodium 144 mmol/L (135-145); Triglycerides 61 mg/dL
[2022-06-08 15:23] LABS: Folate 6.8 ng/mL (> or = 4.0); Vitamin B12 302 pg/mL (200-900); Vitamin D 25-OH Total 16.8 ng/mL (>30)
== END 2022-06-08 12:21 | disposition home or self-care (01) ==
LOC: HO.HMGCLDS 12:20
PROVIDERS: PCP Internal Medicine; Visit Provider Internal Medicine
DX: E78.5 Hyperlipidemia, unspecified (principal); G45.9 Transient cerebral ischemic attack, unspecified; I10 Essential (primary) hypertension; I25.10 Atherosclerotic heart disease of native coronary artery without angina pectoris; I69.30 Unspecified sequelae of cerebral infarction; Z78.0 Asymptomatic menopausal state
CPT/HCPCS: 36415; 80048; 80061; 82043; 82306; 82607; 82746; 83036; 84450; 84460

== ENCOUNTER 2022-06-17 14:30 | Outpatient (REF) | payer OTHER, SELFPAY | END 2022-06-17 14:31 | disposition home or self-care (01) | LOC: HO.HOSX 14:30 | PROVIDERS: Visit Provider Physician Assistant | DX: Z13.89 Encounter for screening for other disorder (principal) ==

== ENCOUNTER → 2022-06-17 14:58 | Outpatient (REF) | payer OTHER, SELFPAY ==
--- NOTE | 2022-06-17 15:01 | HM_ITS ---
Conclusion: 1. Patient was monitored for total period of 7 days 2. Baseline was normal sinus with average heart rate of 74 beats per minute 3. Total of 564 PVCs accounting for 0.09% of total beats accounting for rare PVCs 4. No significant pauses noted 5. No patient reported events MTDD
== END ==
LOC: HO.CARD 14:58
PROVIDERS: Visit Provider Internal Medicine
DX: I48.0 Paroxysmal atrial fibrillation (principal)
CPT/HCPCS: 93246

== ENCOUNTER 2022-07-06 14:02 | Outpatient (REF) | payer OTHER, SELFPAY ==
--- NOTE | ~2022-07-06 | XR_ITS ---
EXAMINATION: XR HIP, RIGHT WITH AP PELVIS CLINICAL INFORMATION: Pain. COMPARISON: AP pelvis dated 11/16/2016. TECHNIQUE: AP and frog-leg lateral views of the right hip are submitted, together with a frontal view the pelvis. FINDINGS: There is bony demineralization. The bilateral acetabular joint spaces are well-maintained. There are small peripheral osteophytes of the bilateral acetabular roofs. The femoral heads appear smooth. There is no fracture or dislocation. The sacroiliac joints are symmetric and well-maintained. The pubic symphysis is intact. Iliofemoral atherosclerotic calcifications are noted. There are abdominopelvic surgical clips. XR/XR hip RT w [id number] IMPRESSION: There is mild osteoarthritic change of the bilateral hips. No fracture or dislocation is seen.
== END 2022-07-06 14:03 | disposition home or self-care (01) ==
LOC: HO.HOSX 14:02
PROVIDERS: Visit Provider Physician Assistant
DX: M70.61 Trochanteric bursitis, right hip (principal)
CPT/HCPCS: 20610; 73502; 99212; J1020

== ENCOUNTER 2022-07-30 10:00 | Outpatient (REF) | payer OTHER, SELFPAY ==
--- NOTE | ~2022-07-30 | MM_ITS ---
EXAMINATION: MM SCREENING DIGITAL BREAST TOMOSYNTHESIS, BILATERAL CLINICAL INFORMATION: Screening. Asymptomatic. The lifetime risk of breast cancer based on the Tyrer-Cuzick Model is 5.1%. COMPARISON: Mammography: January 31, 2021 and studies dating back to October 02, 2014 TECHNIQUE: Digital breast tomosynthesis is performed in both the craniocaudal and mediolateral oblique views along with computer-aided detection (CAD). Synthesized 2D images are generated from the tomosynthesis. FINDINGS: The breasts are almost entirely fatty (ACR BI-RADS breast composition Category a). There are no significant masses, abnormal calcifications, or other abnormalities. MM/MM tomosynthesis screening BI IMPRESSION: No significant changes from prior exam. ASSESSMENT: BI-RADS 1: Negative RECOMMENDATION: Routine annual mammography screening. This patient's information was entered into a reminder system with a target due date for their next mammogram.
== END 2022-07-30 10:01 | disposition home or self-care (01) ==
LOC: HO.MAMMO 10:00
PROVIDERS: PCP Internal Medicine; Visit Provider Internal Medicine
DX: Z12.31 Encounter for screening mammogram for malignant neoplasm of breast (principal)
CPT/HCPCS: 77063; 77067

== ENCOUNTER 2022-10-08 11:14 | Outpatient (REF) | payer OTHER, SELFPAY ==
[2022-10-08 14:24] LABS: Alanine Aminotransferase 15 U/L (0-31); Anion Gap 10 (12-20); Aspartate Amino Transferase 15 U/L (5-31); Blood Urea Nitrogen 27 mg/dL (9-16); Calcium 9.7 mg/dL (8.4-10.2); Carbon Dioxide 32 mmol/L (22-29); Chloride 106 mmol/L (96-108); Cholesterol 190 mg/dL; Estimated Glomerular Filt Rate > 60; Glucose Fasting 115 mg/dL (60-99); HDL Cholesterol 52 mg/dL; LDL Cholesterol Calculated 123 mg/dl; Potassium 4.3 mmol/L (3.3-5.1); Sodium 144 mmol/L (135-145); Triglycerides 79 mg/dL; Uric Acid 4.9 mg/dL (2.4-5.7)
[2022-10-08 14:26] LABS: Estimated Average Glucose 131 mg/dL; Hemoglobin A1c % 6.2 %
[2022-10-08 14:45] LABS: Vitamin D 25-OH Total 26.4 ng/mL (>30)
== END 2022-10-08 11:15 | disposition home or self-care (01) ==
LOC: HO.HMGCLDS 11:14
PROVIDERS: PCP Internal Medicine; Visit Provider Internal Medicine
DX: E11.319 Type 2 diabetes mellitus with unspecified diabetic retinopathy without macular edema (principal); E78.5 Hyperlipidemia, unspecified; I10 Essential (primary) hypertension; M10.9 Gout, unspecified; I69.30 Unspecified sequelae of cerebral infarction; E55.9 Vitamin D deficiency, unspecified; Z78.0 Asymptomatic menopausal state
CPT/HCPCS: 36415; 80048; 80061; 82306; 83036; 84450; 84460; 84550

== ENCOUNTER 2023-02-19 10:41 | Outpatient (REF) | payer OTHER, SELFPAY ==
[2023-02-19 14:06] LABS: Alanine Aminotransferase 16 U/L (0-31); Anion Gap 13 (12-20); Aspartate Amino Transferase 18 U/L (5-31); Blood Urea Nitrogen 23 mg/dL (9-16); Calcium 9.5 mg/dL (8.4-10.2); Carbon Dioxide 27 mmol/L (22-29); Chloride 103 mmol/L (96-108); Cholesterol 227 mg/dL (<200); Estimated Glomerular Filt Rate > 60; Glucose Fasting 122 mg/dL (60-99); HDL Cholesterol 55 mg/dL (>40); LDL Cholesterol Calculated 154 mg/dL (<100); Potassium 3.8 mmol/L (3.3-5.1); Sodium 139 mmol/L (135-145); Triglycerides 91 mg/dL (<150)
[2023-02-19 14:14] LABS: Estimated Average Glucose 140 mg/dL; Hemoglobin A1c % 6.5 % (<6.0)
[2023-02-19 14:23] LABS: Creatinine Urine 89.55 mg/dL; Microalbum/Creatinine Ratio Ur 22.3 ug/mg cr (<30)
[2023-02-19 14:28] LABS: Vitamin D 25-OH Total 29.9 ng/mL (>30)
== END 2023-02-19 10:42 | disposition home or self-care (01) ==
LOC: HO.HMGCLDS 10:41
PROVIDERS: PCP Internal Medicine; Visit Provider Internal Medicine
DX: E11.8 Type 2 diabetes mellitus with unspecified complications (principal); I25.10 Atherosclerotic heart disease of native coronary artery without angina pectoris; E78.5 Hyperlipidemia, unspecified; I10 Essential (primary) hypertension; I69.30 Unspecified sequelae of cerebral infarction; E11.319 Type 2 diabetes mellitus with unspecified diabetic retinopathy without macular edema
CPT/HCPCS: 36415; 80048; 80061; 82043; 82306; 82570; 82607; 82746; 83036; 84450; 84460

== ENCOUNTER 2023-02-26 10:16 | Outpatient (AMB) | payer OTHER, SELFPAY ==
--- NOTE | 2023-02-26 10:35 | MHC.PC.OV ---
Vital Signs 02/26/23 10:37 Height 5 ft 2 in Weight 171 lb 8 oz BMI 31.4 BP 150/80 H Blood Pressure Location Rt brachial Position Sitting Pulse 63 Pulse Source Pulse Oximeter Pulse Oximetry (%) 98 Oxygen Delivery Method Room Air Intake Visit Reasons: f/u lipids, dm, htn and re-occurring h/a Intake Note: pt is here for lab results and re-occurring headaches pt wants the flu vaccine today pt has not had her BP med today yet Allergies No Known Allergies [No Known Allergies*] Allergy (Verified 02/28/23 17:08) Medication List - Last Reconciled 02/28/23 by María Cooper MD amlodipine 2.5 mg See Protocol PO DAILY atorvastatin 40 mg PO BEDTIME blood sugar diagnostic (FreeStyle Lite Strips) test blood sugar twice a day blood-glucose meter (FreeStyle Lite Meter kit) Three times a day cholecalciferol (vitamin D3) 1,250 mcg PO QWEEK 90 days ezetimibe 10 mg PO DAILY ibuprofen 600 mg PO BID PRN lancing device As directed lisinopril-hydrochlorothiazide 10-12.5 mg 1 tab PO DAILY metformin 500 mg PO DAILY ondansetron 4 mg PO Q6-8H PRN sitagliptin phosphate (Januvia) 100 mg PO DAILY Trulicity (dulaglutide) 0.75 mg (0.5 mL) subcut TU@0900 NS Tobacco use date assessed: 02/26/23 Dental Screening Dental Screen Date: 02/26/23 Did you have a dental visit in the last 12 months?: Yes Did you have a dental problem in the last 6 months where you did not have access to dental care?: No Was dental information given to patient?: Patient has dentist HPI f/u lipids, dm, htn and re-occurring h/a HPI Details 57-year-old lady with hypertension, diabetes mellitus, dyslipidemia and 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 She has not been taking her medications as instructed, keeps forgetting to take her medicine in the morning, and has not really been getting any regular exercise. Complaining of recurrent headaches, not accompanied by any chest pain or lightheadedness. Still complaining of persistent cold feeling in her left arm [facility] Medical History (Updated 02/17/23 @ 00:16 by María Cooper MD) Diabetes mellitus with retinopathy History of CVA with residual deficit Atherosclerotic cardiovascular disease History of stroke Intracranial atherosclerosis Normocytic normochromic anemia Cancer History of degenerative joint disease GERD (gastroesophageal reflux disease) Sleep apnea Asthma Depression Vitamin D deficiency Tubular adenoma of colon Essential hypertension Dyslipidemia Type 2 diabetes mellitus without complication, without long-term current use of insulin Surgical History Hx of hand surgery History of carpal tunnel release Hx of endoscopy Hx of colonoscopy Hx of cholecystectomy History of total abdominal hysterectomy Family History Father Cancer Mother Cancer Myocardial infarction Family/Other Diabetes Social History Household Members: Spouse Housing: Apartment Do you presently have visiting nurse or other home services: Yes Alcohol intake: current Alcohol intake frequency: holidays/special occasions only Patient Tobacco Use Status: Never used Tobacco e-Cigarette/Vaping Use: Never Used Advance Directives Date on File: 01/20/21 service: No Current occupational status: disabled Current occupation: rt handed Cognitive needs: No Hearing needs: No Vision needs: No Questionnaire Thrive Questionnaire Date Thrive assessed: 01/17/21 Review of Systems Const Denies fatigue and Denies snoring Eyes Denies change in vision ENT Denies vertigo, Denies hoarseness, Denies mouth lesions, Denies nasal discharge, Denies neck mass, Denies neck pain and Denies post nasal drip Card Denies chest pain, Denies rapid heart rate, Denies palpitations and Denies dyspnea Resp Denies cough, Denies dyspnea and Denies snoring GI Denies abdominal pain, Denies melena, Denies change in bowel habits and Denies heartburn Denies hematuria, Denies urinary frequency and Denies dysuria Musc Reports muscle weakness (left arm), Denies neck pain, Reports numbness (left arm), Reports stiffness and Reports tingling (left arm) Neuro Denies vertigo, Reports numbness (left arm) and Reports tingling (left arm) Endo Reports cold intolerance (left upper extremity), Denies fatigue, Denies polydipsia, Denies polyuria and Denies palpitations Rodrigo/Lymph Denies easy bruising Aller/Immun Reports no additional complaints Physical exam (Primary Care) Vital Signs: Last Vital Signs Pulse 63 02/26/23 10:37 BP 150/80 H 02/26/23 10:37 Pulse Ox 98 02/26/23 10:37 Oxygen Delivery Method Room Air 02/26/23 10:37 BMI result Body Mass Index 31.4 Tobacco/Smoking Status: Tobacco use Status Tobacco use date assessed 02/26/23 02/26/23 10:43 Patient Tobacco Use Status Never used Tobacco 02/26/23 10:35 e-Cigarette/Vaping Use Never Used 02/26/23 10:35 Thrive Assessment: Date of Thrive Assessment Date Thrive assessed 01/17/21 02/26/23 10:35 Const General: cooperative, comfortable and no acute distress Orientation/consciousness: patient oriented x3 HENMT Head: Yes normocephalic and Yes atraumatic Ears: EAC's normal General nose exam: Normal external nose present and No nasal discharge present Face and sinus: Yes Flattened naso-labial fold present (On left, Unchanged from previous visits) Mouth: Normal oral and palatal mucosa present, tongue normal (Midline on protrusion), moist mucous membranes and no muffled voice Eyes General: appearance normal, both eyes and all related structures Neck Neck: Yes full ROM, Yes no lymphadenopathy and Yes supple Resp Effort & Inspection: normal respiratory effort and able to speak in complete sentences Auscultation: clear to auscultation bilaterally Cardio Rate: regular rate Rhythm: regular rhythm Heart sounds: S1 normal heart sound present and S2 normal heart sound present GI Inspection: Yes normal to inspection Palpation (GI): Soft to palpation, nontender and no masses Auscultation: normal bowel sounds Skin General skin exam: no rashes or lesions noted Neuro General: patient oriented x3 Cognition (Neuro): normal cognition Extrem Other: Left arm with contracture deformity Office Procedures Flu Questionnaire Does the patient have a severe egg allergy?: No Does the patient have severe life threatening allergies?: No Does the patient have a fever or illness today?: No Has the patient ever had Guillain-Ripton Syndrome?: No Has the patient ever had any past reaction to a flu shot?: No Immunizations flu vacc [id number] 6mos up(PF) 60 mcg(15 mcgx4)/0.5 mL IM syringe Performing Provider: María Cooper MD Performing Location: [facility] Administered by: Ewelina Nelson CMA on 02/26/23 11:27 Dose Route Admin Location Dispensed Lot Number Expiration Date NDC Mattress Specialist 0.5 mL IM Right Deltoid 0.5 mL [id number] 10/31/23 [id number] [employer] VIS Given Date VIS Provided VIS Publication Date 02/26/23 Single Vaccine 20 Eligibility Eligibility Date Funding Source Not VFC Eligible 02/26/23 Private Results Reviewed Results Reviewed: ENTERED: 02/19/23-[address]: ORDERED: Met Prof Fast, AST, ALT, Lipid Panel, Vitamin D 25-OH Test Result Flag Reference Site Sodium 139 135-145 mmol/L Potassium 3.8 3.3-5.1 mmol/L CL 103 96-108 mmol/L CO2 27 22-29 mmol/L Gap 13 12-20 BUN 23 H 9-16 mg/dL Creat 0.72 0.5-1.4 mg/dL EGFR > 60 NOTE: For -[place] individuals, multiply the result by 1.210. Chronic Kidney Disease: Estimated GFR < 60 mL/min/1.73m2 Severe Kidney Disease: Estimated GFR < 15 mL/min/1.73m2 FBS 122 H 60-99 mg/dL A fasting glucose from 100-125 mg/dl is considered impaired (pre-diabetes). CA 9.5 8.4-10.2 mg/dL AST (GOT) 18 5-31 U/L ALT (GPT) 16 0-31 U/L Triglyceride 91 <150 mg/dL Desirable Triglyceride: less than 150 mg/dL Borderline High Triglyceride 150-199 mg/dL High Triglyceride: 200-499 mg/dL Very High Triglyceride: greater than or equal to 5OO mg/dL Cholesterol 227 H <200 mg/dL Desirable Cholesterol: less than 200 mg/dL Borderline High Cholesterol: 200-239 mg/dL High Cholesterol: greater than 239 mg/dL LDL Calculated 154 H <100 mg/dL Desirable LDL: less than 100 mg/dL Near Optimal/Above Optimal LDL: 110-129 mg/dL Borderline High LDL: 130-159 mg/dL High LDL: 160-189 mg/dL Very High LDL: greater than or equal to 190 mg/dL HDL 55 >40 mg/dL Desirable HDL: greater than 40 mg/dL Note: This HDL assay may give artificially low results in patients with liver disease. Vit D 25-OH Tot 29.9 L >30 ng/mL Health Based Reference Values* < 20 ng/mL Deficient 20-30 ng/mL Insufficient > 30 ng/mL Sufficient Laboratory Tests 02/19/23 10:52 Estimat Average Glucose 140 Hemoglobin A1c % 6.5 H Urine Creatinine 89.55 Urine Microalbumin 20.0 Microalb/Creat Ratio 22.3 Assessment and Plan Assessment & Plan (1) Essential hypertension: Code(s): I10 - Essential (primary) hypertension Plan: blood pressure higher today, unfortunately patient has not yet taken her blood pressure medicine this morning prior to coming to the visit. Continue on current medications, stressed importance of taking medicines as directed. Reinforced importance of following a low-salt diet and getting regular exercise. Will have her come back to have her blood pressure check with nurse navigator in a week and see me back in 3 months for follow-up (2) Diabetes mellitus with retinopathy: Code(s): E11.319 - Type 2 diabetes mellitus with unspecified diabetic retinopathy without macular edema Plan: Diabetes mellitus well controlled with a hemoglobin A1c today at 6.5%. Will continue on current medications and treatment. Reminded to get her updated yearly diabetes retinopathy screening, flu vaccine given today, reminded to get her COVID booster (3) Atherosclerotic cardiovascular disease: Code(s): I25.10 - Atherosclerotic heart disease of [place] coronary artery without angina pectoris (4) Vitamin D deficiency: Code(s): E55.9 - Vitamin D deficiency, unspecified Plan: Prescription sent for vitamin-D 3 replacement 50581 units per capsule to take once a week for the next 3 months. Once finished taking the prescription, advised to continue taking [id number] vitamin-D 3 at 2000 units daily (5) History of CVA with residual deficit: Code(s): I69.30 - Unspecified sequelae of cerebral infarction Plan: Reinforced importance of getting blood pressure, blood sugar levels and cholesterol in good control (6) Dyslipidemia: Code(s): E78.5 - Hyperlipidemia, unspecified Plan: LDL cholesterol still not at goal of less than 100 mg/dL, increased dose of atorvastatin to 40 mg daily and will repeat another fasting lipid panel in 3 months. Reinforced importance of following a low-cholesterol diet and getting regular exercise. Orders: Orders Hemoglobin A1c 3 Months E11.319 - Type 2 diabetes mellitus with unspecified diabetic retinopathy without macular edema, E55.9 - Vitamin D deficiency, unspecified, E78.5 - Hyperlipidemia, unspecified, I10 - Essential (primary) hypertension, I25.10 - Atherosclerotic heart disease of [place] coronary artery without angina pectoris, I69.30 - Unspecified sequelae of cerebral infarction Alanine Aminotransferase 3 Months E11.319 - Type 2 diabetes mellitus with unspecified diabetic retinopathy without macular edema, E55.9 - Vitamin D deficiency, unspecified, E78.5 - Hyperlipidemia, unspecified, I10 - Essential (primary) hypertension, I25.10 - Atherosclerotic heart disease of [place] coronary artery without angina pectoris, I69.30 - Unspecified sequelae of cerebral infarction Aspartate Amino Transferase 3 Months E11.319 - Type 2 diabetes mellitus with unspecified diabetic retinopathy without macular edema, E55.9 - Vitamin D deficiency, unspecified, E78.5 - Hyperlipidemia, unspecified, I10 - Essential (primary) hypertension, I25.10 - Atherosclerotic heart disease of [place] coronary artery without angina pectoris, I69.30 - Unspecified sequelae of cerebral infarction Basic Metabolic Panel Fasting 3 Months E11.319 - Type 2 diabetes mellitus with unspecified diabetic retinopathy without macular edema, E55.9 - Vitamin D deficiency, unspecified, E78.5 - Hyperlipidemia, unspecified, I10 - Essential (primary) hypertension, I25.10 - Atherosclerotic heart disease of [place] coronary artery without angina pectoris, I69.30 - Unspecified sequelae of cerebral infarction Influenza [id number] Immunization 02/26/23 Z23 - Encounter for immunization Microalbumin, Random (w Creat) 3 Months E11.319 - Type 2 diabetes mellitus with unspecified diabetic retinopathy without macular edema, E55.9 - Vitamin D deficiency, unspecified, E78.5 - Hyperlipidemia, unspecified, I10 - Essential (primary) hypertension, I25.10 - Atherosclerotic heart disease of [place] coronary artery without angina pectoris, I69.30 - Unspecified sequelae of cerebral infarction Lipid Panel 3 Months E11.319 - Type 2 diabetes mellitus with unspecified diabetic retinopathy without macular edema, E55.9 - Vitamin D deficiency, unspecified, E78.5 - Hyperlipidemia, unspecified, I10 - Essential (primary) hypertension, I25.10 - Atherosclerotic heart disease of [place] coronary artery without angina pectoris, I69.30 - Unspecified sequelae of cerebral infarction Vitamin D 25-OH Total 3 Months E11.319 - Type 2 diabetes mellitus with unspecified diabetic retinopathy without macular edema, E55.9 - Vitamin D deficiency, unspecified, E78.5 - Hyperlipidemia, unspecified, I10 - Essential (primary) hypertension, I25.10 - Atherosclerotic heart disease of [place] coronary artery without angina pectoris, I69.30 - Unspecified sequelae of cerebral infarction Medications: Changed From atorvastatin 20 mg PO BEDTIME 90 tabs 1RF To atorvastatin 40 mg PO BEDTIME 90 tabs 1RF Refilled cholecalciferol (vitamin D3) 1,250 mcg PO QWEEK 13 caps 0RF 90 days E55.9 - Vitamin D deficiency, unspecified Coding Level of Care Code Est Pt Level 4 (77544) Diagnoses Essential hypertension I10 Diabetes mellitus with retinopathy E11.319 Atherosclerotic cardiovascular disease I25.10 Vitamin D deficiency E55.9 History of CVA with residual deficit I69.30 Dyslipidemia E78.5
[2023-02-26 10:37] VITALS: BP 150/80; PULSE 63; O2SAT 98; BMI 31.4
== END 2023-02-26 16:07 | disposition home or self-care (01) ==
PROVIDERS: PCP Internal Medicine; Visit Provider Internal Medicine
DX: Z23 Encounter for immunization (principal)
CPT/HCPCS: 90471; 90686; 99214

== ENCOUNTER 2023-03-12 10:06 | Outpatient (AMB) | payer OTHER, SELFPAY ==
[2023-03-12 10:49] VITALS: BP 140/80; PULSE 70; TEMP 36.6; O2SAT 98; BMI 31.5
--- NOTE | 2023-03-12 10:49 | MHC.OFFWIV ---
Intake Vital Signs 03/12/23 10:49 Height 5 ft 2 in Weight 172 lb BMI 31.5 BP 140/80 H Blood Pressure Location Lt brachial Position Sitting Pulse 70 Pulse Source Pulse Oximeter Temp 97.8 F Temp Source Temporal Artery Scan Pulse Oximetry (%) 98 Oxygen Delivery Method Room Air Intake Visit Reasons: EST/right leg burn(lobby) Intake Note: pt is here for c/o right foot burn from iron Patient Tobacco Use Status: Never used Tobacco Allergies No Known Allergies [No Known Allergies*] Allergy (Verified 03/12/23 10:54) Do you need a note to return to daycare/school/sports/work: Yes HPI HPI Comments History of Present Illness Details This is a 57-year-old female who presents to the office today for sick visit. Patient complaining of a burn to the top of her left foot. She states she dropped an iron on her foot a few days ago. She denies any erythema, swelling, ecchymosis, or purulence drainage. She denies any fevers or chills. She is otherwise feeling well. [facility] Medical History (Updated 02/17/23 @ 00:16 by María Cooper MD) Diabetes mellitus with retinopathy History of CVA with residual deficit Atherosclerotic cardiovascular disease History of stroke Intracranial atherosclerosis Normocytic normochromic anemia Cancer History of degenerative joint disease GERD (gastroesophageal reflux disease) Sleep apnea Asthma Depression Vitamin D deficiency Tubular adenoma of colon Essential hypertension Dyslipidemia Type 2 diabetes mellitus without complication, without long-term current use of insulin Surgical History Hx of hand surgery History of carpal tunnel release Hx of endoscopy Hx of colonoscopy Hx of cholecystectomy History of total abdominal hysterectomy Family History Father Cancer Mother Cancer Myocardial infarction Family/Other Diabetes Social History Household Members: Spouse Housing: Apartment Do you presently have visiting nurse or other home services: Yes Alcohol intake: current Alcohol intake frequency: holidays/special occasions only Patient Tobacco Use Status: Never used Tobacco e-Cigarette/Vaping Use: Never Used Advance Directives Date on File: 01/20/21 service: No Current occupational status: disabled Current occupation: rt handed Cognitive needs: No Hearing needs: No Vision needs: No Review of Systems Const All systems reviewed & are unremarkable except as noted in HPI and below Reports no additional complaints Eyes Reports no additional complaints ENT Reports no additional complaints Card Reports no additional complaints Resp Reports no additional complaints GI Reports no additional complaints Reports no additional complaints Musc Reports no additional complaints Skin/Breast Reports system reviewed and no additional complaints, except as documented Neuro Reports no additional complaints Psych Reports no additional complaints Endo Reports no additional complaints Rodrigo/Lymph Reports no additional complaints Aller/Immun Reports no additional complaints Physical Exam Vital Signs: Last Vital Signs Temp 97.8 F 03/12/23 10:49 Pulse 70 03/12/23 10:49 BP 140/80 H 03/12/23 10:49 Pulse Ox 98 03/12/23 10:49 Oxygen Delivery Method Room Air 03/12/23 10:49 BMI result Body Mass Index 31.5 Const Other: Vital signs reviewed. Constitutional: Non-toxic appearing. No acute distress. Well-developed and well-nourished. HEENT: Normocephalic and atraumatic. Skin: Small minor thermal burn noted to the dorsal aspect of the left foot. No surrounding erythema. No purulent drainage. Neck: Full and painless range of motion. No cervical lymphadenopathy. Cardio: Regular rate. No lower extremity edema. No JVD. Pulmonary: No respiratory distress. No accessory muscle usage. Gastrointestinal: Soft, nontender, and nondistended in all 4 quadrants. Musculoskeletal: Normal range of motion in joints throughout the body. No deformity or other signs of injury. There is no tenderness to palpation of the left metatarsals. Neuro: Alert and oriented x4. Cranial nerves 2-12 grossly intact. No focal deficits appreciated. Psych: Normal mood and affect. Assessment & Plan Assessment & Plan (1) Burn of left foot: Code(s): T25.022A - Burn of unspecified degree of left foot, initial encounter Plan: This is a 57 year old female presenting to the office with a very minor thermal burn of the dorsal aspect of her left foot. There is no evidence of purulent drainage or cellulitis. Recommended symptomatic management including local wound care, such as cleansing the area with a mild soap and water and application of bacitracin, and PO acetaminophen/ibuprofen for pain management. Patient was advised to follow-up here or proceed to the emergency room if she were to develop persistent/worsening symptoms or if she were to notice surrounding erythema, purulent drainage, fever/chills, or signs of systemic infection. Patient verbalizes her understanding and she is in agreement with the plan. Medications: Refilled ibuprofen 600 mg PO BID PRN 40 tabs 0RF for pain Coding Level of Care Code Est Pt Level 3 (69079) Diagnoses Burn of left foot T25.022A
== END 2023-03-12 11:22 | disposition home or self-care (01) ==
PROVIDERS: PCP Internal Medicine; Visit Provider Physician Assistant Medical
DX: T25.022A Burn of unspecified degree of left foot, initial encounter (principal)
CPT/HCPCS: 99213

== ENCOUNTER 2023-05-25 09:17 | Outpatient (AMB) | payer OTHER, SELFPAY ==
--- NOTE | 2023-05-25 10:14 | MHC.PC.OV ---
Intake Visit Reasons: EP Fell/ Injury to Chest, Knees (masked) Allergies No Known Allergies [No Known Allergies*] Allergy (Verified 03/12/23 10:54) Tobacco use date assessed: 02/26/23 REPLACED BY [facility] Medical History (Updated 02/17/23 @ 00:16 by María Cooper MD) Diabetes mellitus with retinopathy History of CVA with residual deficit Atherosclerotic cardiovascular disease History of stroke Intracranial atherosclerosis Normocytic normochromic anemia Cancer History of degenerative joint disease GERD (gastroesophageal reflux disease) Sleep apnea Asthma Depression Vitamin D deficiency Tubular adenoma of colon Essential hypertension Dyslipidemia Type 2 diabetes mellitus without complication, without long-term current use of insulin Surgical History Hx of hand surgery History of carpal tunnel release Hx of endoscopy Hx of colonoscopy Hx of cholecystectomy History of total abdominal hysterectomy Family History Father Cancer Mother Cancer Myocardial infarction Family/Other Diabetes Social History Household Members: Spouse Housing: Apartment Do you presently have visiting nurse or other home services: Yes Alcohol intake: current Alcohol intake frequency: holidays/special occasions only Patient Tobacco Use Status: Never used Tobacco e-Cigarette/Vaping Use: Never Used Advance Directives Date on File: 01/20/21 service: No Current occupational status: disabled Current occupation: rt handed Cognitive needs: No Hearing needs: No Vision needs: No Questionnaire Thrive Questionnaire Date Thrive assessed: 01/17/21 Physical exam (Primary Care) Tobacco/Smoking Status: Tobacco use Status Tobacco use date assessed 02/26/23 03/12/23 10:04 Patient Tobacco Use Status Never used Tobacco 03/12/23 10:50 e-Cigarette/Vaping Use Never Used 03/12/23 10:04 Thrive Assessment: Date of Thrive Assessment Date Thrive assessed 01/17/21 03/12/23 10:04 Coding
[2023-05-25 10:16] VITALS: BP 120/80; PULSE 75; O2SAT 99
--- NOTE | 2023-05-25 10:18 | AM.OFFWIN_ITS ---
Intake Vital Signs 05/25/23 10:16 Weight 174 lb BP 120/80 Blood Pressure Location Rt brachial Position Sitting Pulse 75 Pulse Source Pulse Oximeter Pulse Oximetry (%) 99 Oxygen Delivery Method Room Air Intake Visit Reasons: EP Fell/ Injury to Chest, Knees (masked) Intake Note: Patient states she had a fall Last wednesday and fell on her right side and mentioned she has a bump on her chest area and hurts to take deep breathes. Patient Tobacco Use Status: Never used Tobacco Allergies No Known Allergies [No Known Allergies*] Allergy (Verified 05/25/23 10:18) Do you need a note to return to daycare/school/sports/work: No HPI HPI Comments History of Present Illness Details Patient is a 58-year-old female here for a sick visit. She states that she slipped on her rug 2 days ago and fell on her right side hitting her right knee, the right side of her chest, and the right side of her neck. Patient denies syncopal event, or any precipitating event before the fall. She has a past medical history significant for CVA, diabetes type 2, hypertension, asthma, and cardiovascular disease. Patient states that her right knee feels much better she is able to walk and bear weight without pain. Her chief complaint is reproducible chest wall and rib pain that gets worse when she takes deep breath in, and right sided neck stiffness. She denies shortness of breath, atypical chest pain, epigastric pain, dizziness, headache, numbness, nausea, vomiting, diarrhea. Will obtain in office EKG. Will obtain chest x-ray. FORMERLY [facility], [facility] Medical History Diabetes mellitus with retinopathy History of CVA with residual deficit Atherosclerotic cardiovascular disease History of stroke Intracranial atherosclerosis Normocytic normochromic anemia Cancer History of degenerative joint disease GERD (gastroesophageal reflux disease) Sleep apnea Asthma Depression Vitamin D deficiency Tubular adenoma of colon Essential hypertension Dyslipidemia Type 2 diabetes mellitus without complication, without long-term current use of insulin Surgical History Hx of hand surgery History of carpal tunnel release Hx of endoscopy Hx of colonoscopy Hx of cholecystectomy History of total abdominal hysterectomy Family History Father Cancer Mother Cancer Myocardial infarction Family/Other Diabetes Social History Household Members: Spouse Housing: Apartment Do you presently have visiting nurse or other home services: Yes Alcohol intake: current Alcohol intake frequency: holidays/special occasions only Patient Tobacco Use Status: Never used Tobacco e-Cigarette/Vaping Use: Never Used Advance Directives Date on File: 01/20/21 service: No Current occupational status: disabled Current occupation: rt handed Cognitive needs: No Hearing needs: No Vision needs: No Review of Systems Const Details: Constitutional : No Weight loss, No Fever, No Chills, No Fatigue, No Malaise ENT/Mouth : No sore throat, No Rhinorrhea Eyes: No Eye Pain, No Swelling, No Redness Cardiovascular : No Chest Pain, No SOB, No Dyspnea on Exertion, No Orthopnea, No Edema, No Palpitations. Admits chest wall pain. Respiratory : No Cough, No Sputum, No Wheezing Gastrointestinal : No Nausea, No Vomiting, No Diarrhea, No Constipation, No abdominal Pain, No Hematochezia, No Melena Genitourinary : No Dysuria, No Urinary Frequency, No Hematuria, Musculoskeletal : Admits right sided chest wall pain. Skin : No Skin Lesions, No rash Neuro : No Weakness, No Numbness, No Dizziness, No Headache Psych : No Anxiety/Panic, No Depression Heme/Lymph: No Bruising, No Bleeding,No Lymphadenopathy Endocrine : No Polyuria, No Polydipsia All other systems reviewed and are negative Physical Exam Vital Signs: Last Vital Signs Pulse 75 05/25/23 10:16 BP 120/80 05/25/23 10:16 Pulse Ox 99 05/25/23 10:16 Oxygen Delivery Method Room Air 05/25/23 10:16 Vital signs reviewed stable. Const Other: Appearance: Alert.? Oriented X3.? No acute distress.? Head: Normocephalic, atraumatic, no step-offs or deformities Eyes: Pupils equal, round and reactive to light.?EOM intact. ENT: Pharynx normal.? Neck: Normal inspection.? Neck supple.? CVS: Normal heart rate and rhythm.? Pulses normal.? Respiratory: No respiratory distress.? Breath sounds normal.? Abdomen: Soft and nontender.? Chest: Chest pain on deep breath in, right sided. Skin: Skin warm and dry.? Some bruising on right sykes. Extremities: No lower extremity edema.? No calf ttp. 5/5 strength to bilateral upper and lower extremities Back: No midline tenderness, no C-spine tenderness, full range of motion, no CVA tenderness bilaterally Neuro: Oriented X 3.? No motor deficit.? No sensory deficit. CN 2-12 intact Assessment & Plan Assessment & Plan (1) Chest wall contusion: Comment: Initial reading of chest x-ray demonstrated no fracture. Patient has been instructed to use Tylenol. Will also prescribe tizanidine to be taken as directed at night. Patient has been educated on signs of worsening symptoms and when to present back to the walk-in or when to present to the emergency room. The patient has been educated on the importance of deep breathing and coughing. Code(s): S20.219A - Contusion of unspecified front wall of thorax, initial encounter Qualifiers: Encounter type: initial encounter Laterality: right Qualified Code(s): S20.211A - Contusion of right front wall of thorax, initial encounter Plan: Take your medications as prescribed. If you were prescribed antibiotics today, it is important that you take your medication to their entirety, do not skip any doses, do not finish them early. Follow-up with your primary care provider this week. Return to the emergency department with new or worsening symptoms. Such as fevers, chills, chest pain, shortness of breath, nausea, vomiting, dizziness, headache, vision changes, lethargy In case of emergency call 911 Plan Follow-up with PCP. Orders: Orders XR chest 2V Today R07.81 - Pleurodynia AMB EKG-In Office Today W19.XXXA - Unspecified fall, initial encounter Medications: New tizanidine 2 mg PO BEDTIME PRN 10 caps 0RF muscle spasticity Coding Level of Care Code Est Pt Level 3 (46285) Diagnoses Contusion of right chest wall, initial encounter S20.211A Encounter type: initial encounter Laterality: right Time Spent (min) 25
== END 2023-05-25 12:02 | disposition home or self-care (01) ==
PROVIDERS: PCP Internal Medicine; Visit Provider Nurse Practitioner Primary Care
DX: S20.211A Contusion of right front wall of thorax, initial encounter (principal); W01.0XXA Fall on same level from slipping, tripping and stumbling without subsequent striking against object, initial encounter
CPT/HCPCS: 93000; 99213

== ENCOUNTER 2023-05-25 10:50 | Outpatient (REF) | payer OTHER, SELFPAY ==
--- NOTE | ~2023-05-25 | XR_ITS ---
EXAMINATION: XR CHEST CLINICAL INFORMATION: Pleurodynia COMPARISON: Chest x-ray August 23, 2017 TECHNIQUE: 2 views of the chest were obtained. FINDINGS: Cardiac silhouette is normal in size. The lungs are well aerated. There is no lobar consolidation. No pleural effusion or pneumothorax. Surgical clips of the upper abdomen suggesting prior cholecystectomy. Moderate degenerative changes of the spine. XR/XR chest 2V IMPRESSION: No acute pulmonary pathology.
== END 2023-05-25 10:51 | disposition home or self-care (01) ==
LOC: HO.HMGCX 10:50
PROVIDERS: PCP Internal Medicine; Visit Provider Nurse Practitioner Primary Care
DX: R07.81 Pleurodynia (principal)
CPT/HCPCS: 71046

== ENCOUNTER 2023-08-05 09:42 | Outpatient (REF) | payer OTHER, SELFPAY | END 2023-08-05 09:43 | disposition home or self-care (01) | LOC: HO.MAMMO 09:42 | PROVIDERS: PCP Internal Medicine; Visit Provider Internal Medicine | DX: Z12.31 Encounter for screening mammogram for malignant neoplasm of breast (principal) | CPT/HCPCS: 77063; 77067 ==

== ENCOUNTER → 2023-08-05 10:15 | Outpatient (BNV) | payer OTHER, SELFPAY | PROVIDERS: PCP Internal Medicine; Visit Provider Radiology Diagnostic Radiology | DX: Z12.31 Encounter for screening mammogram for malignant neoplasm of breast (principal) | CPT/HCPCS: 77063; 77067 ==

== ENCOUNTER 2023-08-14 12:39 | Emergency (ER) | payer OTHER, SELFPAY ==
--- NOTE | ~2023-08-14 | CT_ITS ---
EXAMINATION: HEAD CT WITHOUT CONTRAST CERVICAL SPINE CT WITHOUT CONTRAST CLINICAL INFORMATION: Headache status post fall. Neck pain. COMPARISON: MRI and CT dated 12/22/2021. TECHNIQUE: Contiguous axial imaging of the head was performed without the administration of IV contrast. Axial multidetector volumetric images were also performed through the cervical spine without intravenous contrast. Multiplanar reconstructed images in coronal and sagittal orientations were submitted. This CT examination was performed using dose optimization techniques as appropriate, variously including the following: *Automated exposure control *Adjustment of mA and/or kV according to patient size (this includes techniques or standardized protocols for targeted exams where dose is matched to indication/reason for exam; i.e. extremities or head) *Use of iterative reconstruction technique DOSE: 332 and 556 mGy-cm FINDINGS: HEAD: There is no evidence of acute intracranial hemorrhage or territorial infarction. No abnormal mass-effect or midline shift. No extra-axial fluid collections. Romero to white matter differentiation is well preserved. The ventricles are normal in size and configuration. Multiple areas of hypoattenuation in the subcortical and periventricular white matter are most consistent with chronic microangiopathic changes. Small chronic lacunar infarcts are again seen in the right thalamus, left stark radiata, and brainstem, unchanged. Calcific atherosclerosis is present within the cavernous segments of the internal carotid arteries. No acute fracture. Calvarium and skull base appear intact. Status post bilateral lens extractions. 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 Subcutaneous fat stranding over the left temporal region may be due to a soft tissue contusion. The sinuses and mastoid air cells are clear. CERVICAL SPINE: Vertebral body heights are normal. No fractures of the vertebral bodies or posterior elements. Vertebral alignment is normal. No subluxation. Degenerative osteophytes and sclerosis are present at the atlantodental articulation, though normal alignment is maintained. Craniocervical junction is normal. Multilevel degenerative disc disease in cervical spine is characterized by prominent endplate and uncovertebral osteophytes as well as loss of vertebral disc height. Mild multilevel facet arthropathy. Posterior disc osteophyte complexes produce at least mild central canal narrowing at multiple levels including C3-C4, C5-C6, and C6-C7. Uncovertebral osteophytes produce neural foraminal encroachment on the left at C5-C6 and C6-C7 and on the right at C5-C6. No significant paravertebral soft tissue swelling. Atherosclerotic calcifications are present in the carotid arteries. Imaged portions of the lung apices are clear. CT/CT cervical spine wo IV con IMPRESSION: 1. No acute intracranial pathology. Moderate chronic white matter microangiopathy with chronic lacunar infarcts. 2. No acute fracture or malalignment in the cervical spine. Mild to moderate multilevel degenerative disc disease. 3. 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 ENT consultation is advised if not previously obtained.
--- NOTE | ~2023-08-14 | CT_ITS ---
EXAMINATION: CT CHEST WITH CONTRAST CLINICAL INFORMATION: Right-sided abdominal pain and right rib pain after fall. COMPARISON: No recent chest imaging comparison exam. Comparison is made with abdomen CT from 08/14/2023. TECHNIQUE: Multidetector volumetric CT imaging of the chest was obtained after the administration of 85 mL of Omnipaque 350 intravenous contrast without immediate adverse reactions. Axial MIP volume rendering provided. Sagittal and coronal reformatted images were obtained. This CT examination was performed using dose optimization techniques as appropriate, variously including the following: *Automated exposure control *Adjustment of mA and/or kV according to patient size (this includes techniques or standardized protocols for targeted exams where dose is matched to indication/reason for exam; i.e. extremities or head) *Use of iterative reconstruction technique DLP: 338 mGy-cm FINDINGS: LUNGS AND PLEURA: Trachea and central airways are widely patent and normal in caliber. Lungs are well expanded. Old calcified granulomas in lower lobes. No suspicious lung nodule, mass, consolidation or pleural effusion. No pneumothorax. CARDIOVASCULAR: The heart size is normal. No pericardial effusion. Mild atherosclerosis of the thoracic aorta. No acute aortic injury or mediastinal hematoma. Three-vessel coronary artery atherosclerotic calcification is present. MEDIASTINUM AND LOWER NECK: The visualized portion of the thyroid gland is normal. The esophagus has normal wall thickness. No pneumomediastinum. LYMPHATICS: No pathologic sized lymph nodes. UPPER ABDOMEN: Large body habitus. Status post cholecystectomy with common duct measuring up to 8-9 mm diameter. No free fluid in the visualized upper abdomen. SKELETAL AND CHEST WALL: No evidence of chest wall hematoma. Osteoarthritis of glenohumeral joints. Periosteal reaction around a prior fracture of right anterior fourth rib. No acute rib fractures are identified. CT/CT chest w IV con IMPRESSION: * No acute pulmonary disease. * Atherosclerotic calcification of coronary arteries and thoracic aorta without aortic aneurysm. * No acute rib fracture. However, there is periosteal reaction around a prior right anterior fourth rib fracture. * Status post cholecystectomy with common duct measuring up to 8-9 mm diameter.
--- NOTE | ~2023-08-14 | CT_ITS ---
EXAMINATION: CT ABDOMEN AND PELVIS WITH CONTRAST CLINICAL INFORMATION: Right abdominal pain COMPARISON: CT abdomen and pelvis 01/28/2021 TECHNIQUE: Multidetector volumetric images were obtained from the superior aspect of the liver through the pubic symphysis following administration 85 mL of Omnipaque 350 intravenous contrast. Sagittal and coronal reformatted images were obtained on the technologist's workstation. Oral contrast: No This CT examination was performed using dose optimization techniques as appropriate, variously including the following: *Automated exposure control *Adjustment of mA and/or kV according to patient size (this includes techniques or standardized protocols for targeted exams where dose is matched to indication/reason for exam; i.e. extremities or head) *Use of iterative reconstruction technique DLP: 821 mGy-cm FINDINGS: LUNG BASES: The visualized lung bases are unremarkable. LIVER, GALLBLADDER, AND BILIARY TREE: The liver is normal in size, shape, and attenuation. No focal hepatic lesion or biliary ductal dilatation is present. The gallbladder is unremarkable with no evidence of radiopaque gallstones, gallbladder wall thickening, or obvious pericholecystic inflammatory changes. PANCREAS: Unremarkable. SPLEEN: Unremarkable. ADRENAL GLANDS: Unremarkable. KIDNEYS AND URETERS: The kidneys are normal in size, shape, and attenuation. No hydronephrosis, hydroureter, or calculi seen. No perinephric stranding. Stable simple right-sided renal cysts, requiring no further imaging follow-up. BLADDER: Unremarkable. GASTROINTESTINAL TRACT: Colonic diverticulosis without evidence of diverticulitis. The visualized large and small bowel are normal in caliber. ABDOMINAL WALL: No significant hernia is appreciated. LYMPH NODES: Surgical clips overlie the aortocaval region in the retroperitoneum, and along the iliac chains bilaterally. VASCULAR: Extensive atherosclerotic plaque. Retroaortic left renal vein. PELVIC VISCERA: Unremarkable OSSEOUS STRUCTURES: Exaggerated lumbar lordosis. Multilevel degenerative changes of the visualized thoracolumbar spine. Disc space height loss most severe at L5-S1. CT/CT abdomen pelvis w IV con IMPRESSION: 1. No acute findings. 2. Colonic diverticulosis without evidence of diverticulitis. Fleischner guidelines were followed.
[2023-08-14 13:03] VITALS: BP 171/90; PULSE 73; RESP 18; TEMP 36.6; O2SAT 97; BMI 36.8
--- NOTE | 2023-08-14 13:04 | ED_ITS ---
HPI - Fall General Chief Complaint: Fall Stated Complaint: fall Time Seen by Provider: 08/14/23 16:02 History of Present Illness HPI Narrative: The patient is a 58-year-old woman who had a stroke about a year ago leaving her with left-sided weakness. She says that last night she was going up stairs and fell backwards. She believes she went down 11 steps. She hit her head and has left-sided head pain. She has pain in most of her body. Does not believe she had loss of consciousness. She has chronic left-sided weakness but no new weakness. Related Data Previous Rx's ?Medication ?Instructions ?Recorded ondansetron 4 mg disintegrating 4 mg PO Q6-8H PRN nausea and 02/16/22 tablet vomiting #7 tabs To [place] [facility] #1 ea 04/06/23 Trulicity 0.75 mg/0.5 mL 0.75 mg (0.5 mL) subcut TU@0900 #6 04/17/23 subcutaneous pen injector mL (dulaglutide) blood sugar diagnostic (FreeStyle #100 ea 04/17/23 Lite Strips) lisinopril 10 1 tab PO DAILY #90 tabs 04/17/23 mg-hydrochlorothiazide 12.5 mg tablet amlodipine 2.5 mg tablet 2.5 mg PO DAILY #90 tabs 04/18/23 atorvastatin 40 mg tablet 40 mg PO BEDTIME #90 tabs 04/18/23 blood-glucose meter (FreeStyle #1 ea 04/18/23 Lite Meter kit) ezetimibe 10 mg tablet 10 mg PO DAILY #90 tabs 04/18/23 lancing device #1 ea 04/18/23 metformin 500 mg tablet 500 mg PO DAILY #90 tabs 04/18/23 sitagliptin phosphate 100 mg 100 mg PO DAILY #90 tabs 04/18/23 tablet (Januvia) cholecalciferol (vitamin D3) 1,250 1,250 mcg PO QWEEK 90 days #13 caps 05/10/23 mcg (50,000 unit) capsule tizanidine 2 mg capsule 2 mg PO BEDTIME PRN muscle 05/25/23 spasticity #10 caps ibuprofen 600 mg tablet 600 mg PO BID PRN for pain #40 tabs 06/14/23 ibuprofen 600 mg tablet 600 mg PO TID PRN pain #10 tabs 08/14/23 morphine 15 mg immediate release 15 mg PO Q6H PRN pain #10 tabs 08/14/23 tablet Allergies Allergy/AdvReac Type Severity Reaction Status Date / Time No Known Allergies Allergy Verified 08/14/23 13:08 [No Known Allergies*] Review of Systems 2 Review of Systems: Yes all other systems are reviewed and are negative [facility] Past Medical History Medical History Diabetes mellitus with retinopathy History of CVA with residual deficit Atherosclerotic cardiovascular disease History of stroke Intracranial atherosclerosis Normocytic normochromic anemia Cancer History of degenerative joint disease GERD (gastroesophageal reflux disease) Sleep apnea Asthma Depression Vitamin D deficiency Tubular adenoma of colon Essential hypertension Dyslipidemia Type 2 diabetes mellitus without complication, without long-term current use of insulin Surgical History Hx of hand surgery History of carpal tunnel release Hx of endoscopy Hx of colonoscopy Hx of cholecystectomy History of total abdominal hysterectomy Family History Family History Father Cancer Mother Cancer Myocardial infarction Family/Other Diabetes Social History Social History Household Members: Spouse Housing: Apartment Do you presently have visiting nurse or other home services: Yes Alcohol intake: current Alcohol intake frequency: holidays/special occasions only Patient Tobacco Use Status: Never used Tobacco Smoked in Last 30 Days: No e-Cigarette/Vaping Use: Never Used Use of substances other than those prescribed or required for medical reasons: No Advance Directives: Yes Advance Directives on File: Yes Advance Directives Date on File: 01/20/21 Patient : No service: No Current occupational status: disabled Current occupation: rt handed Cognitive needs: No Hearing needs: No Vision needs: No Physical Exam 2 Vital Signs: Vital Signs: Last Vital Signs Temp 97.1 F 08/14/23 18:10 Pulse 70 08/14/23 18:10 Resp 14 08/14/23 18:10 BP 175/75 H 08/14/23 18:10 Pulse Ox 98 08/14/23 18:10 O2 Del Method Room Air 08/14/23 18:10 BMI result Body Mass Index 36.8 Const: Other: The patient is a somewhat chronically ill-appearing 58-year-old woman who is awake and alert. She looks mildly uncomfortable. She does not appear acutely toxic. HEENT: Other: The patient has left lower facial weakness. There is no raccoon eyes or gore sign. There is scalp tenderness behind the left ear. Eyes: Other: Pupils are round equal, conjunctivae are clear, no signs of trauma to the eyes. Neck: Other: The patient had some mild posterior C-spine tenderness. Chest: Other: There is some diffuse chest wall tenderness. No crepitus or subcutaneous emphysema Resp: Effort & Inspection: normal respiratory effort Auscultation: clear to auscultation bilaterally Cardio: Rate: regular rate Rhythm: regular rhythm Heart sounds: S1 normal heart sound present and S2 normal heart sound present GI: Other: Mild diffuse abdominal tenderness. Skin: Other: The patient has bruises to the arms and the legs. The abdomen is intact. Neuro: Other: The patient has left facial weakness and left arm weakness which is chronic. Extrem: Other: The patient has bruises on her arms and on her legs but she has good range of motion of the extremities. Course Course Course Narrative: This is an RME: Additional HPI, ROS, PE not included below will be deferred to primary provider. This is a [id number]-female, with a hx of asthma, cancer, CVA with left sided deficits, diabetes, HTN, HLD, GERD, who presents to the ER with a complaints of fall. Pt states that while she was walking up the steps last night she thought she was holding onto the stairs and fell backwards, falling down 11 steps. Reporting headache, neck pain, and diffuse body pain. She has been taking tylenol for her pain with minimal relief. Patient has diffuse ecchymosis seen throughout body, tenderness to palpation along the lumbar spine, C-spine, neurologically intact, chronic left-sided hemiparesis noted. Plan: CT head, neck, chest, abd, labs Medications Administered Discontinued Medications Generic Name Dose Route Start Last Admin Trade Name Freq PRN Reason Stop Dose Admin Acetaminophen 650 mg 08/14/23 13:07 08/14/23 13:12 Acetaminophen 325 Mg Tablet PO 08/14/23 13:08 650 mg ONCE ONE Administration Iohexol 100 ml 08/14/23 16:39 08/14/23 16:39 Iohexol 350 Mg/Ml 100 Ml Infus..Btl IV 08/14/23 16:40 85 ml ONCE ONE Administration Ketorolac Tromethamine 10 mg 08/14/23 16:07 08/14/23 16:55 Ketorolac Tromethamine 15 Mg/Ml Vial IVPUSH 08/14/23 16:08 10 mg ONCE ONE Administration Medical Decision Making Medical Decision Making [facility] Narrative: The patient is a 58-year-old woman who fell down stairs last night. She describes falling down 11 steps. She has multiple contusions on her extremities but her extremities do not seem fractured. She is complaining of head, neck, chest, back, and abdominal pain. CT scans of the head, neck, chest, abdomen and pelvis are all negative for acute fractures or internal injuries. The patient was treated with a dose of ketorolac with improvement in her pain. She will be discharged with a prescription for MSIR. She should follow up with the regular doctor. Lab Data 08/14/23 13:26 08/14/23 13:26 Labs: Lab Results 08/14/23 Range/Units 13:26 WBC 7.9 (4.8-10.8) X10*3/uL RBC 4.45 (4.20-5.50) X10*6/uL Hgb 12.4 (12.0-16.0) g/dl Hct 36.9 L (37.0-47.0) % MCV 82.9 (80.0-98.0) fL MCH 27.9 (27.0-33.0) pg MCHC 33.6 (31.0-35.0) g/dl RDW 13.3 (11.0-16.0) % Plt Count 167 (160-400) X10*3/uL MPV 10.6 (9.4-12.3) fL Immature Gran % (Auto) 0.1 (0.0-0.4) % Neut % (Auto) 73.0 (45-73) % Lymph % (Auto) 18.9 L (20-40) % [place] % (Auto) 7.3 (2-11) % Eos % (Auto) 0.4 (0-4) % Baso % (Auto) 0.3 (0-2) % Lymph # (Auto) 1.5 (1.2-4.9) X10*3/uL [place] # (Auto) 0.6 (0.1-1.2) X10*3/uL Eos # (Auto) 0.0 (0.0-0.4) X10*3/uL Baso # (Auto) 0.0 (0.0-0.2) X10*3/uL Abs Immat Gran (auto) 0.01 (0.00-0.03) X10*3/uL Absolute Neuts (auto) 5.8 (2.0-8.3) x10*3/uL Absolute Nucleated RBC 0.000 (0.0-0.012) X10*3/uL Nucleated RBC % (auto) 0.0 (0.0-0.2) /100WBC Sodium 141 (135-145) mmol/L Potassium 3.6 (3.3-5.1) mmol/L Chloride 105 (96-108) mmol/L Carbon Dioxide 28 (22-29) mmol/L Anion Gap 12 (12-20) BUN 19 H (9-16) mg/dL Creatinine 0.71 (0.5-1.4) mg/dL Estim Creat Clear Calc 71.8 Estimated GFR > 60 Random Glucose 109 (60-115) mg/dL Calcium 9.3 (8.4-10.2) mg/dL Total Bilirubin 0.4 (0.0-1.0) mg/dL Direct Bilirubin 0.1 (0.0-0.5) mg/dL AST 19 (5-31) U/L ALT 15 (0-31) U/L Alkaline Phosphatase 82 (39-117) U/L Total Creatine Kinase 204 H (26-140) U/L Total Protein 7.9 (6.5-8.0) g/dL Albumin 3.8 (3.5-5.0) g/dL Lipase 21 (8-78) U/L Discharge Plan Discharge Clinical Impression: Multiple contusions, Fall, Head injury Patient Disposition: Home, Self-Care Additional Instructions: Your testing does not show any fractures or internal injuries. Nevertheless I think you have a lot of bruising and strain injuries. Please take 2 extra-strength acetaminophen (Tylenol) up to 3 times a day as needed for pain. In addition I have sent a prescription for ibuprofen that you may also take 3 times a day as needed. Also I have sent a prescription for morphine tablets that you may use if absolutely necessary. Expect to be sore for the next several days. Take it easy. Please follow up soon with your regular doctor. Prescriptions: New ibuprofen 600 mg tablet 600 mg PO TID PRN (Reason: pain) Qty: 10 0RF morphine 15 mg tablet 15 mg PO Q6H PRN (Reason: pain) Qty: 10 0RF Rx Instructions: Partial Fill upon patient request. No Action (DME) To [facility] See Rx Instructions .Route .MEDSUPPLY Qty: 1 0RF Rx Instructions: .?Occupational Therapy evaluation for functional community mobility. (DME) FreeStyle Lite Strips Strip See Rx Instructions .ROUTE .MEDSUPPLY Qty: 100 6RF Rx Instructions: test blood sugar twice a day lisinopril-hydrochlorothiazide 10-12.5 mg tablet 1 tab PO DAILY Qty: 90 1RF Trulicity 0.75 mg/0.5 mL pen injector 0.75 mg subcut TU@0900 Qty: 6 1RF amlodipine 2.5 mg tablet 2.5 mg PO DAILY Qty: 90 1RF Protocol: Hold for SBP< HOLD for SBP < : 90 atorvastatin 40 mg tablet 40 mg PO BEDTIME Qty: 90 1RF (DME) blood-glucose meter [FreeStyle Lite Meter] Kit See Rx Instructions .ROUTE .MEDSUPPLY Qty: 1 0RF Rx Instructions: Three times a day ezetimibe 10 mg tablet 10 mg PO DAILY Qty: 90 1RF Rx Instructions: NEED SCHEDULED APPOINTMENT FOR FUTURE REFILLS (DME) lancing device Misc See Rx Instructions .ROUTE .MEDSUPPLY Qty: 1 0RF Rx Instructions: As directed metformin 500 mg tablet 500 mg PO DAILY Qty: 90 1RF Januvia 100 mg tablet 100 mg PO DAILY Qty: 90 1RF cholecalciferol (vitamin D3) 1,250 mcg (50,000 unit) capsule 1,250 mcg PO QWEEK 90 Days Qty: 13 0RF ibuprofen 600 mg tablet 600 mg PO BID PRN (Reason: for pain) Qty: 40 0RF ondansetron 4 mg tablet,disintegrating 4 mg PO Q6-8H PRN (Reason: nausea and vomiting) Qty: 7 0RF tizanidine 2 mg capsule 2 mg PO BEDTIME PRN (Reason: muscle spasticity) Qty: 10 0RF Referrals: María Cooper MD [Primary Care Provider] - (fall, multiple contusions) Interventions: ED Discharge Assessment Last Done: 08/14/23 18:10 Discharge Date/Time: 08/14/23 18:14 Print Language: Samoan
[2023-08-14] MEDS: Acetaminophen 325 MG TABLET 650 MG PO (13:12)
[2023-08-14 13:30] LABS: MANUAL DIFF FLAG NO
[2023-08-14 13:32] LABS: Basophils Percent Auto 0.3 % (0-2); Eosinophils Percent Auto 0.4 % (0-4); Hematocrit 36.9 % (37.0-47.0); Hemoglobin 12.4 g/dl (12.0-16.0); Imm Gran Abs Auto 0.01 X10*3/uL (0.00-0.03); Imm Gran Pct Auto 0.1 % (0.0-0.4); Lymphocytes Absolute Auto 1.5 X10*3/uL (1.2-4.9); Lymphocytes Percent Auto 18.9 % (20-40); Mean Corpuscular HGB Conc 33.6 g/dl (31.0-35.0); Mean Corpuscular Hemoglobin 27.9 pg (27.0-33.0); Mean Corpuscular Volume 82.9 fL (80.0-98.0); Mean Platelet Volume 10.6 fL (9.4-12.3); Monocytes Absolute Auto 0.6 X10*3/uL (0.1-1.2); Monocytes Percent Auto 7.3 % (2-11); Neutrophils Absolute Auto 5.8 x10*3/uL (2.0-8.3); Platelet Count 167 X10*3/uL (160-400); Red Blood Count 4.45 X10*6/uL (4.20-5.50); Red Cell Distribution Width 13.3 % (11.0-16.0); White Blood Count 7.9 X10*3/uL (4.8-10.8)
[2023-08-14 13:45] LABS: Alanine Aminotransferase 15 U/L (0-31); Albumin Level 3.8 g/dL (3.5-5.0); Alkaline Phosphatase 82 U/L (39-117); Anion Gap 12 (12-20); Aspartate Amino Transferase 19 U/L (5-31); Bilirubin Direct 0.1 mg/dL (0.0-0.5); Bilirubin Total 0.4 mg/dL (0.0-1.0); Blood Urea Nitrogen 19 mg/dL (9-16); Calcium 9.3 mg/dL (8.4-10.2); Carbon Dioxide 28 mmol/L (22-29); Chloride 105 mmol/L (96-108); Creatinine Clr Calc Pharmacy 71.8; Estimated Glomerular Filt Rate > 60; Glucose Random 109 mg/dL (60-115); Lipase 21 U/L (8-78); Potassium 3.6 mmol/L (3.3-5.1); Sodium 141 mmol/L (135-145); Total Protein 7.9 g/dL (6.5-8.0)
[2023-08-14] MEDS: iohexoL 350 MG/ML 100 ML INFUS..BTL IV (16:39)
[2023-08-14] MEDS: Ketorolac Tromethamine 15 MG/ML VIAL 10 MG IVPUSH (16:55)
[2023-08-14 17:10] VITALS: BP 175/75; PULSE 70; RESP 14; TEMP 36.2; O2SAT 98
[2023-08-14 18:10] VITALS: BP 175/75; PULSE 70; RESP 14; TEMP 36.2; O2SAT 98
== END 2023-08-14 18:14 | disposition home or self-care (01) ==
PROVIDERS: Physician Assistant Medical; Emergency Provider Emergency Medicine; PCP Internal Medicine
DX: S09.90XA Unspecified injury of head, initial encounter (principal); M54.2 Cervicalgia; R51.9 Headache, unspecified; R51.0 Headache with orthostatic component, not elsewhere classified; R53.1 Weakness; R10.2 Pelvic and perineal pain; E11.9 Type 2 diabetes mellitus without complications; W10.2XXA Fall (on)(from) incline, initial encounter; Y93.9 Activity, unspecified; Y92.9 Unspecified place or not applicable; Y99.8 Other external cause status; Z79.899 Other long term (current) drug therapy; Z79.4 Long term (current) use of insulin
CPT/HCPCS: 36415; 70450; 71260; 72125; 74177; 80048; 80076; 82550; 83690; 85025; 96374; 99284; J1885; Q9967

== ENCOUNTER 2023-10-15 14:48 | Outpatient (AMB) | payer OTHER, SELFPAY ==
--- NOTE | 2023-10-15 14:48 | MHC.OFFWIV ---
Intake Vital Signs 10/15/23 14:49 Height 4 ft 9 in Weight 163 lb BMI 35.3 BP 140/70 H Blood Pressure Location Lt brachial Position Sitting Pulse 70 Pulse Source Pulse Oximeter Temp 97.0 F Temp Source Temporal Artery Scan Pulse Oximetry (%) 98 Oxygen Delivery Method Room Air Intake Visit Reasons: EP Lump Behind Right Ear, painful Intake Note: pt is here today for lump behind rt ear painful started 10 days ago Patient Tobacco Use Status: Never used Tobacco Allergies No Known Allergies [No Known Allergies*] Allergy (Verified 10/15/23 14:54) Do you need a note to return to daycare/school/sports/work: No HPI HPI Comments History of Present Illness Details Patient is a 58-year-old female with a history of type 2 diabetes who recently returned from the [facility]. She states after being there for 2 days, she developed a pain behind her right ear, it has since been swollen. She denies fever, dental pain changes in her hearing or ear pain. ON LICENSE OF [facility] Medical History Diabetes mellitus with retinopathy History of CVA with residual deficit Atherosclerotic cardiovascular disease History of stroke Intracranial atherosclerosis Normocytic normochromic anemia Cancer History of degenerative joint disease GERD (gastroesophageal reflux disease) Sleep apnea Asthma Depression Vitamin D deficiency Tubular adenoma of colon Essential hypertension Dyslipidemia Type 2 diabetes mellitus without complication, without long-term current use of insulin Surgical History Hx of hand surgery History of carpal tunnel release Hx of endoscopy Hx of colonoscopy Hx of cholecystectomy History of total abdominal hysterectomy Family History Father Cancer Mother Cancer Myocardial infarction Family/Other Diabetes Social History Household Members: Spouse Housing: Apartment Do you presently have visiting nurse or other home services: Yes Alcohol intake: current Alcohol intake frequency: holidays/special occasions only Patient Tobacco Use Status: Never used Tobacco e-Cigarette/Vaping Use: Never Used Advance Directives Date on File: 01/20/21 service: No Current occupational status: disabled Current occupation: rt handed Cognitive needs: No Hearing needs: No Vision needs: No Review of Systems Const All systems reviewed & are unremarkable except as noted in HPI and below Physical Exam Const General: cooperative, healthy appearing, comfortable, no acute distress and well developed Orientation/consciousness: patient oriented x3 Limitations: no limitations HEENT Head: Yes normal to inspection Ears: hearing grossly normal bilaterally, TM normal on the right and mastoids normal (Tenderness on inferior aspect with palpable induration below the bone) on the right Teeth and gingiva: dentition normal Throat: Yes posterior oropharynx normal Eyes General: appearance normal, both eyes and all related structures Neck Other: tenderness on right upper lateral neck up to mastoid bone with visible swelling Neck: Yes full ROM, Yes trachea midline and Yes supple Resp Effort & Inspection: normal respiratory effort and able to speak in complete sentences Skin General skin exam: no rashes or lesions noted Neuro General: patient oriented x3 Extrem General: Yes normal to inspection Assessment & Plan Assessment & Plan (1) Neck pain on right side: Code(s): M54.2 - Cervicalgia Plan: Sent to ED for CT Scan to rule out mastoiditis. Called Expect to [facility] [place] ED. patient's friend will bring her, vital signs are stable. Plan see above Coding Level of Care Code Est Pt Level 5 (18995) Diagnoses Neck pain on right side M54.2
[2023-10-15 14:49] VITALS: BP 140/70; PULSE 70; TEMP 36.1; O2SAT 98; BMI 35.3
== END 2023-10-15 16:38 | disposition home or self-care (01) ==
PROVIDERS: PCP Internal Medicine; Visit Provider Physician Assistant
DX: M54.2 Cervicalgia (principal)
CPT/HCPCS: 99214

== ENCOUNTER 2023-10-15 15:23 | Emergency (ER) | payer OTHER, SELFPAY ==
--- NOTE | ~2023-10-15 | CT_ITS ---
EXAMINATION: CT head/brain wo IV con CLINICAL INFORMATION: Reason for Exam r mastoid TTP, swelling, erythma COMPARISON: CT head 08/14/2023 TECHNIQUE: Contiguous axial imaging was performed from the skull base to vertex without intravenous contrast. Sagittal and coronal reformatted images were obtained. This CT examination was performed using dose optimization techniques as appropriate, variously including the following: * Automated exposure control * Adjustment of mA and/or kV according to patient size (this includes techniques or standardized protocols for targeted exams where dose is matched to indication/reason for exam; i.e. extremities or head) Use of iterative reconstruction technique DLP: 562 mGy-cm FINDINGS: Stable mild volume loss. Patchy periventricular and deep white matter hypoattenuation is nonspecific but likely reflects sequelae of moderate chronic microangiopathy. Stable chronic infarct in the high left superior frontal gyrus and chronic lacunar infarcts within the deep arteaga nuclei and left pontomesencephalic junction, better appreciated on MRI. No territorial loss of arteaga-white differentiation. No acute intracranial hemorrhage or extra-axial fluid collection. No mass lesion, significant mass effect, or herniation pattern. Lens replacements. New dependent aerated secretions in the sphenoid sinuses. The mastoid air cells are well aerated. Osseous structures are intact. Increase in size of partially imaged mass in the right parotid gland mass involving the superficial greater than deep lobes, now measuring up to 2.8 cm, previously 2.[address]/CT head/brain wo IV con IMPRESSION: 1. No findings of otomastoiditis or perimastoidal inflammatory change. 2. Increase in size of partially imaged mass in the right parotid gland mass involving the superficial greater than deep lobes, now measuring up to 2.8 cm, previously 2.3 cm. ENT follow-up advised. 3. Stable additional intracranial findings as discussed above.
--- NOTE | ~2023-10-15 | CT_ITS ---
EXAMINATION: CT SOFT TISSUE NECK WITH CONTRAST CLINICAL INFORMATION: Right lateral neck/submandibular swelling and pain COMPARISON: CTA 12/22/2021 TECHNIQUE: Following the administration of 60 mL of Omnipaque 350 intravenous contrast, helical imaging was performed in the axial plane with generation of coronal and sagittal reformatted images. This CT examination was performed using dose optimization techniques as appropriate, variously including the following: *Automated exposure control. *Adjustment of mA and/or kV according to patient size (this includes techniques or standardized protocols for targeted exams where dose is matched to indication/reason for exam; i.e. extremities or head). *Use of iterative reconstruction technique. DLP: 380 mGy-cm. FINDINGS: Since 12/22/2021, interval increase in size of a right parotid gland mass largely involving the superficial and to a much lesser extent the deep lobes of the right parotid gland, measuring 3.0 x 2.4 x 3.8 cm, previously 2.2 x 1.9 x 3.1 cm. There is increased partial compression of the right retromandibular vein between the mass in the mandibular condyle, which remains patent. There is increased heterogeneous enhancement pattern with new areas of internal cystic/necrotic change. The contralateral left parotid gland and bilateral some mandibular glands are normal. Unchanged minimal nonspecific apparent stranding versus scarring within the right submandibular space along the posterior margin of the right submandibular gland. Stable asymmetric right level 2A lymph node measuring 1.4 cm in long axis. No other new or progressive lymphadenopathy. The fat planes of the skull base and soft tissues of the nasopharynx are unremarkable. New dependent aerated debris in the sphenoid sinuses. Mild polypoid mucosal thickening in the maxillary sinus alveolar recesses. The temporomandibular joints are normal. The oral cavity is normal. Redemonstrated 7 mm well-circumscribed low density focus in the inferior right palatine fossa/right base of tongue, presumably a retention/vallecular cyst. Soft tissue along the base of tongue largely effaces the valleculae, presumably lingual tonsillar hyperplasia. The laryngeal structures are opposed, limiting assessment. Retropharyngeal course of the right greater than left mid common carotid arteries and proximal right internal carotid artery. Few small thyroid nodules measuring up to 3 mm, below size criteria for imaging follow-up. The partially visualized lung apices are clear. Atherosclerotic disease with stable mild luminal narrowing of the proximal right ICA origin. Redemonstrated findings of diffuse idiopathic skeletal hyperostosis with a prevertebral disc osteophytes and bridging ventral ossification indenting upon the post cricoid hypopharynx. Multilevel cervical spondylosis and endplate Schmorl's nodes with chronic height loss of several cervical vertebral bodies, unchanged. 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 The imaged portions of the brain parenchyma are unremarkable. Scattered calcific plaque along the intradural vertebral arteries and carotid siphons with luminal narrowing of the internal carotid arteries that is not diagnostically assessed. Azygos JOHN. Bilateral lens replacements. CT/CT soft tissue neck w IV con IMPRESSION: 1. Since 12/22/2021, interval increase in size of a right parotid gland mass largely involving the superficial right parotid lobe, measuring 3.0 x 2.4 x 3.8 cm, previously 2.2 x 1.9 x 3.1 cm., With new internal cystic/necrotic change There is increased partial compression of the right retromandibular vein between the mass in the mandibular condyle, which remains patent. 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 Stable asymmetric right level 2A lymph node measuring 1.4 cm in long axis. ENT consultation/follow-up advised. 2. No findings of acute right submandibular sialoadenitis.
[2023-10-15 15:58] VITALS: BP 155/71; PULSE 63; RESP 16; TEMP 36.6; O2SAT 99; BMI 30.7
--- NOTE | 2023-10-15 15:58 | ED.GENADULT ---
HPI - General Adult General Chief complaint: Skin/Abscess/Foreign Body Stated complaint: lump in neck - ref by for CAT scan Time Seen by Provider: 10/15/23 16:39 Source: patient Mode of arrival: ambulatory Limitations: no limitations History of Present Illness HPI narrative: Patient is a 58-year-old female who presents to the emergency department. Reports initially had a fall in the bathroom, she hit the right side of her face/chin onto the ground. this happened 10 days ago, the following morning when she awoke she felt a lump behind her right ear. Has had subsequent pain, redness, swelling, area is wam to the touch. Symptoms progressively worsening. Denies dizziness, lightheadedness, neck pain, tinnitus, impaired hearing. She was evaluated at [facility] urgent care and referred to the ED for CT scan. She denies any history of prior swelling or pain to this area before the fall. Related Data Previous Rx's ?Medication ?Instructions ?Recorded ondansetron 4 mg disintegrating 4 mg PO Q6-8H PRN nausea and 02/16/22 tablet vomiting #7 tabs To [facility] #1 ea 04/06/23 blood sugar diagnostic (FreeStyle #100 ea 04/17/23 Lite Strips) atorvastatin 40 mg tablet 40 mg PO BEDTIME #90 tabs 04/18/23 blood-glucose meter (FreeStyle #1 ea 04/18/23 Lite Meter kit) ezetimibe 10 mg tablet 10 mg PO DAILY #90 tabs 04/18/23 lancing device #1 ea 04/18/23 metformin 500 mg tablet 500 mg PO DAILY #90 tabs 04/18/23 tizanidine 2 mg capsule 2 mg PO BEDTIME PRN muscle 05/25/23 spasticity #10 caps ibuprofen 600 mg tablet 600 mg PO TID PRN pain #10 tabs 08/14/23 morphine 15 mg immediate release 15 mg PO Q6H PRN pain #10 tabs 08/14/23 tablet cholecalciferol (vitamin D3) 1,250 1,250 mcg PO QWEEK 90 days #13 caps 08/22/23 mcg (50,000 unit) capsule Trulicity 0.75 mg/0.5 mL 0.75 mg (0.5 mL) subcut TU@0900 #6 09/09/23 subcutaneous pen injector mL (dulaglutide) amlodipine 2.5 mg tablet 2.5 mg PO DAILY #90 tabs 09/09/23 ibuprofen 600 mg tablet 600 mg PO BID PRN for pain #40 tabs 09/09/23 lisinopril 10 1 tab PO DAILY #90 tabs 09/09/23 mg-hydrochlorothiazide 12.5 mg tablet Allergies Allergy/AdvReac Type Severity Reaction Status Date / Time No Known Allergies Allergy Verified 10/15/23 16:02 [No Known Allergies*] Review of Systems Review of Systems: Yes all other systems are reviewed and are negative [facility] Past Medical History Attestation statement: The following information was validated with the patient. Source: old records reviewed Medical History Diabetes mellitus with retinopathy History of CVA with residual deficit Atherosclerotic cardiovascular disease History of stroke Intracranial atherosclerosis Normocytic normochromic anemia Cancer History of degenerative joint disease GERD (gastroesophageal reflux disease) Sleep apnea Asthma Depression Vitamin D deficiency Tubular adenoma of colon Essential hypertension Dyslipidemia Type 2 diabetes mellitus without complication, without long-term current use of insulin Surgical History Hx of hand surgery History of carpal tunnel release Hx of endoscopy Hx of colonoscopy Hx of cholecystectomy History of total abdominal hysterectomy Family History Family History Father Cancer Mother Cancer Myocardial infarction Family/Other Diabetes Social History Social History Household Members: Spouse Housing: Apartment Do you presently have visiting nurse or other home services: Yes Alcohol intake: current Alcohol intake frequency: holidays/special occasions only Patient Tobacco Use Status: Never used Tobacco Smoked in Last 30 Days: No e-Cigarette/Vaping Use: Never Used Use of substances other than those prescribed or required for medical reasons: No Advance Directives: Yes Advance Directives on File: Yes Advance Directives Date on File: 01/20/21 service: No Current occupational status: disabled Current occupation: rt handed Cognitive needs: No Hearing needs: No Vision needs: No Physical Exam ED Vital Signs: Vital Signs - 24 hr 10/15/23 15:58 10/15/23 18:58 10/15/23 20:12 Temperature 98 F 97.8 F 97.7 F Pulse Rate 63 62 67 Respiratory Rate 16 18 17 Blood Pressure 155/71 H 165/66 H 173/64 H Pulse Oximetry 99 100 100 Oxygen Delivery Method Room Air Room Air Room Air BMI result Body Mass Index 30.7 Appearance: Alert.?Oriented to person, place and time. No acute distress.?Normal affect. Eyes: Pupils equal, round and reactive to light.? EOMI. No nystagmus. ENT: Pharynx normal.? TM normal bilaterally. Dentition normal. Neck: Swelling to right lateral neck extending from mastoid to submandibular region, tenderness upon palpation and warmth on palpation. Neck supple.??No adenopathy. CVS: Heart sounds normal. Normal heart rate and rhythm.? Pulses normal.?? Respiratory: No respiratory distress.? Lung sounds clear to auscultation bilaterally?? Abdomen: Soft and non-tender. Normoactive bowel sounds. Skin: Skin warm and dry.? Normal skin color.? Extremities: No lower extremity edema.? Neuro: Moves all extremities spontaneously. Sensation intact bilaterally. Left-sided facial droop and weakness to left side residual from prior CVA. Ambulates with normal steady gait. Course Reevaluation(s) Reevaluation #1: CT revealing increasing size of right superficial parotid lobe with internal cystic/necrotic changes with partial compression of the retromandibular vein but remains patent, findings concerning for epithelial glandular neoplasm when compared to CT of the head from 08/21/2023. On review of records, patient had a brain MRI in December of 2021 which showed evidence of right parotid mass at that time with recommendation from Radiology for ENT consultation. On review of her medical record, she had a primary care visit in 01/26/2022, where she advised her PCP that the right parotid mass had been biopsied in 2020 with benign findings. She reports to me that she had it biopsied with [facility], and was advised that ?it was cancerous but not malignant, it was the size of a dime, and they told me not to worry about it . At this time she is tolerating oral intake, nontoxic, afebrile, without leukocytosis. Time: 20:35 Medications Administered Discontinued Medications Generic Name Dose Route Start Last Admin Trade Name Freq PRN Reason Stop Dose Admin Acetaminophen 975 mg 10/15/23 17:05 10/15/23 17:40 Acetaminophen 325 Mg Tablet PO 10/15/23 17:06 975 mg ONCE ONE Administration Sodium Chloride 1,000 mls @ 999 mls/hr 10/15/23 17:45 10/15/23 19:05 Ns IV 10/15/23 18:45 Infused .Q1H1M BUSTER Infusion Ibuprofen 600 mg 10/15/23 17:05 10/15/23 17:40 Ibuprofen 600 Mg Tablet PO 10/15/23 17:06 600 mg ONCE ONE Administration Iohexol 60 ml 10/15/23 18:38 10/15/23 18:38 Iohexol 350 Mg/Ml 100 Ml Infus..Btl IV 10/15/23 18:39 60 ml ONCE ONE Administration Potassium Chloride 40 meq 10/15/23 17:05 10/15/23 17:41 Potassium Chloride Packet 20 Meq Packet PO 10/15/23 17:06 40 meq ONCE ONE Administration Medical Decision Making Medical Decision Making MDM Narrative: Patient is a 58-year-old female past medical history of diabetes mellitus, CVA with left-sided residual deficit, ASCVD, GERD, DJD, sleep apnea, asthma, depression, hypertension, dyslipidemia presenting to emergency department for evaluation of pain and swelling to the right posterior ear/ neck after a recent fall as per HPI. On exam she has tenderness over the mastoid, swelling extending from the mastoid to submandibular region and along the right lateral neck with significant tenderness upon palpation and warmth. Dentition without signs of acute infection, decreased AROM to jaw due to pain. Plan to obtain CT head/soft tissue neck for further evaluation Differential Diagnosis Differential Diagnoses: The differential diagnosis associated with the presentation includes (Mastoiditis, AOM, perforated TM, soft tissue mass, abscess, fracture) Admission/Observation Consideration of admission/observation: Escalation of care including admission/observation considered Lab Data MDM Lab Attestation statement: I reviewed the patient's lab results. CBC is without leukocytosis, mild thrombocytopenia, normocytic anemia that does not meet transfusion criteria. BUN of 39, increased from baseline, creatinine slightly higher than baseline but within normal range, LFTs within normal range. Mild hypokalemia of 3.1 10/15/23 16:19 10/15/23 16:19 Labs: Lab Results 06/14/24 06/14/24 06/14/24 Range/Units 16:06 16:19 18:01 WBC 7.7 (4.8-10.8) X10*3/uL RBC 3.72 L (4.20-5.50) X10*6/uL Hgb 10.6 L (12.0-16.0) g/dl Hct 30.9 L (37.0-47.0) % MCV 83.1 (80.0-98.0) fL MCH 28.5 (27.0-33.0) pg MCHC 34.3 (31.0-35.0) g/dl RDW 13.2 (11.0-16.0) % Plt Count 158 L (160-400) X10*3/uL MPV 11.5 (9.4-12.3) fL Immature Gran % (Auto) 0.4 (0.0-0.4) % Neut % (Auto) 71.6 (45-73) % Lymph % (Auto) 17.4 L (20-40) % [place] % (Auto) 8.5 (2-11) % Eos % (Auto) 1.6 (0-4) % Baso % (Auto) 0.5 (0-2) % Lymph # (Auto) 1.4 (1.2-4.9) X10*3/uL [place] # (Auto) 0.7 (0.1-1.2) X10*3/uL Eos # (Auto) 0.1 (0.0-0.4) X10*3/uL Baso # (Auto) 0.0 (0.0-0.2) X10*3/uL Abs Immat Gran (auto) 0.03 (0.00-0.03) X10*3/uL Absolute Neuts (auto) 5.5 (2.0-8.3) x10*3/uL Absolute Nucleated RBC 0.000 (0.0-0.012) X10*3/uL Nucleated RBC % (auto) 0.0 (0.0-0.2) /100WBC Sodium 142 (135-145) mmol/L Potassium 3.1 L (3.3-5.1) mmol/L Chloride 107 (96-108) mmol/L Carbon Dioxide 26 (22-29) mmol/L Anion Gap 12 (12-20) BUN 39 H (9-16) mg/dL Creatinine 0.95 (0.5-1.4) mg/dL Estim Creat Clear Calc 57.8 Estimated GFR > 60 POC Glucose 118 H 87 (60-115) mg/dL Random Glucose 124 H (60-115) mg/dL Calcium 8.7 D (8.4-10.2) mg/dL Total Bilirubin 0.2 (0.0-1.0) mg/dL AST 15 (5-31) U/L ALT 12 (0-31) U/L Alkaline Phosphatase 81 (39-117) U/L Total Protein 7.4 (6.5-8.0) g/dL Albumin 3.6 (3.5-5.0) g/dL 10/15/23 Range/Units 20:17 WBC (4.8-10.8) X10*3/uL RBC (4.20-5.50) X10*6/uL Hgb (12.0-16.0) g/dl Hct (37.0-47.0) % MCV (80.0-98.0) fL MCH (27.0-33.0) pg MCHC (31.0-35.0) g/dl RDW (11.0-16.0) % Plt Count (160-400) X10*3/uL MPV (9.4-12.3) fL Immature Gran % (Auto) (0.0-0.4) % Neut % (Auto) (45-73) % Lymph % (Auto) (20-40) % [place] % (Auto) (2-11) % Eos % (Auto) (0-4) % Baso % (Auto) (0-2) % Lymph # (Auto) (1.2-4.9) X10*3/uL [place] # (Auto) (0.1-1.2) X10*3/uL Eos # (Auto) (0.0-0.4) X10*3/uL Baso # (Auto) (0.0-0.2) X10*3/uL Abs Immat Gran (auto) (0.00-0.03) X10*3/uL Absolute Neuts (auto) (2.0-8.3) x10*3/uL Absolute Nucleated RBC (0.0-0.012) X10*3/uL Nucleated RBC % (auto) (0.0-0.2) /100WBC Sodium (135-145) mmol/L Potassium (3.3-5.1) mmol/L Chloride (96-108) mmol/L Carbon Dioxide (22-29) mmol/L Anion Gap (12-20) BUN (9-16) mg/dL Creatinine (0.5-1.4) mg/dL Estim Creat Clear Calc Estimated GFR POC Glucose 80 (60-115) mg/dL Random Glucose (60-115) mg/dL Calcium (8.4-10.2) mg/dL Total Bilirubin (0.0-1.0) mg/dL AST (5-31) U/L ALT (0-31) U/L Alkaline Phosphatase (39-117) U/L Total Protein (6.5-8.0) g/dL Albumin (3.5-5.0) g/dL Independent Interpretation I performed an independent interpretation of an: EKG Interpretation: Rate: 59 Rhythm:? Sinus bradycardia Normal P waves.? Normal EARLINE.?? Normal QRS complex.?? ST T wave :??No ST elevation, ST depression qTC:419 prior studies:? 12/2021 The study has been interpreted contemporaneously by me. Radiology Impression Discussion of test interpretation with radiology: I have reviewed the radiologist's reading. Radiologist Impression: CT/CT head/brain wo IV con IMPRESSION: 1. No findings of otomastoiditis or perimastoidal inflammatory change. 2. Increase in size of partially imaged mass in the right parotid gland mass involving the superficial greater than deep lobes, now measuring up to 2.8 cm, previously 2.3 cm. ENT follow-up advised. 3. Stable additional intracranial findings as discussed above. CT/CT soft tissue neck w IV con IMPRESSION: 1. Since 12/22/2021, interval increase in size of a right parotid gland mass largely involving the superficial right parotid lobe, measuring 3.0 x 2.4 x 3.8 cm, previously 2.2 x 1.9 x 3.1 cm., With new internal cystic/necrotic change There is increased partial compression of the right retromandibular vein between the mass in the mandibular condyle, which remains patent. 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 Stable asymmetric right level 2A lymph node measuring 1.4 cm in long axis. ENT consultation/follow-up advised. 2. No findings of acute right submandibular sialoadenitis. Discharge Plan Discharge Clinical Impression: Mass of right parotid gland Patient Disposition: Home, Self-Care Additional Instructions: As discussed, your imaging today continues to show a mass of your right parotid gland that is increasing in size when compared to your prior imaging studies. An ENT specialist may consider additional imaging and/or repeat biopsy. Based on the address that you have provided, it is my best guess that you had your prior biopsy at ear nose and throat surgeon's of [facility] located at [address] [place] [address] in [place]. Their phone number is [phone]. Please call their office first thing Wednesday morning to schedule a follow-up visit If you have any difficulty getting an appointment, you may also try contacting the ear nose throat specialist associated with our hospital, Dr. Roman Prescriptions: No Action (DME) To [facility] See Rx Instructions .Route .MEDSUPPLY Qty: 1 0RF Rx Instructions: .?Occupational Therapy evaluation for functional community mobility. (DME) FreeStyle Lite Strips Strip See Rx Instructions .ROUTE .MEDSUPPLY Qty: 100 6RF Rx Instructions: test blood sugar twice a day atorvastatin 40 mg tablet 40 mg PO BEDTIME Qty: 90 1RF (DME) blood-glucose meter [FreeStyle Lite Meter] Kit See Rx Instructions .ROUTE .MEDSUPPLY Qty: 1 0RF Rx Instructions: Three times a day ezetimibe 10 mg tablet 10 mg PO DAILY Qty: 90 1RF Rx Instructions: NEED SCHEDULED APPOINTMENT FOR FUTURE REFILLS (DME) lancing device Misc See Rx Instructions .ROUTE .MEDSUPPLY Qty: 1 0RF Rx Instructions: As directed metformin 500 mg tablet 500 mg PO DAILY Qty: 90 1RF cholecalciferol (vitamin D3) 1,250 mcg (50,000 unit) capsule 1,250 mcg PO QWEEK 90 Days Qty: 13 0RF lisinopril-hydrochlorothiazide 10-12.5 mg tablet 1 tab PO DAILY Qty: 90 1RF amlodipine 2.5 mg tablet 2.5 mg PO DAILY Qty: 90 1RF Protocol: Hold for SBP< HOLD for SBP < : 90 Trulicity 0.75 mg/0.5 mL pen injector 0.75 mg subcut TU@0900 Qty: 6 1RF ibuprofen 600 mg tablet 600 mg PO BID PRN (Reason: for pain) Qty: 40 0RF ondansetron 4 mg tablet,disintegrating 4 mg PO Q6-8H PRN (Reason: nausea and vomiting) Qty: 7 0RF ibuprofen 600 mg tablet 600 mg PO TID PRN (Reason: pain) Qty: 10 0RF morphine 15 mg tablet 15 mg PO Q6H PRN (Reason: pain) Qty: 10 0RF Rx Instructions: Partial Fill upon patient request. tizanidine 2 mg capsule 2 mg PO BEDTIME PRN (Reason: muscle spasticity) Qty: 10 0RF Referrals: María Cooper MD [Primary Care Provider] - Shiraz Roman [Physician] - Print Language: Congolese
[2023-10-15 16:24] LABS: Glucose, Whole Blood 118 mg/dL (60-115)
[2023-10-15 16:36] LABS: MANUAL DIFF FLAG NO
[2023-10-15 16:38] LABS: Basophils Percent Auto 0.5 % (0-2); Eosinophils Absolute Auto 0.1 X10*3/uL (0.0-0.4); Eosinophils Percent Auto 1.6 % (0-4); Hematocrit 30.9 % (37.0-47.0); Hemoglobin 10.6 g/dl (12.0-16.0); Imm Gran Abs Auto 0.03 X10*3/uL (0.00-0.03); Imm Gran Pct Auto 0.4 % (0.0-0.4); Lymphocytes Absolute Auto 1.4 X10*3/uL (1.2-4.9); Lymphocytes Percent Auto 17.4 % (20-40); Mean Corpuscular HGB Conc 34.3 g/dl (31.0-35.0); Mean Corpuscular Hemoglobin 28.5 pg (27.0-33.0); Mean Corpuscular Volume 83.1 fL (80.0-98.0); Mean Platelet Volume 11.5 fL (9.4-12.3); Monocytes Absolute Auto 0.7 X10*3/uL (0.1-1.2); Monocytes Percent Auto 8.5 % (2-11); Neutrophils Absolute Auto 5.5 x10*3/uL (2.0-8.3); Neutrophils Percent Auto 71.6 % (45-73); Platelet Count 158 X10*3/uL (160-400); Red Blood Count 3.72 X10*6/uL (4.20-5.50); Red Cell Distribution Width 13.2 % (11.0-16.0); White Blood Count 7.7 X10*3/uL (4.8-10.8)
[2023-10-15 17:00] LABS: Alanine Aminotransferase 12 U/L (0-31); Albumin Level 3.6 g/dL (3.5-5.0); Alkaline Phosphatase 81 U/L (39-117); Anion Gap 12 (12-20); Aspartate Amino Transferase 15 U/L (5-31); Bilirubin Total 0.2 mg/dL (0.0-1.0); Blood Urea Nitrogen 39 mg/dL (9-16); Calcium 8.7 mg/dL (8.4-10.2); Carbon Dioxide 26 mmol/L (22-29); Chloride 107 mmol/L (96-108); Creatinine Clr Calc Pharmacy 57.8; Estimated Glomerular Filt Rate > 60; Glucose Random 124 mg/dL (60-115); Potassium 3.1 mmol/L (3.3-5.1); Sodium 142 mmol/L (135-145); Total Protein 7.4 g/dL (6.5-8.0)
--- NOTE | 2023-10-15 17:05 | ECG_ITS ---
Test Reason : FALL Blood Pressure : / mmHG Vent. Rate : 059 BPM Atrial Rate : 059 BPM P-R Int : 154 ms QRS Dur : 090 ms QT Int : 424 ms P-R-T Axes : 060 043 007 degrees QTc Int : 419 ms Sinus bradycardia Otherwise normal ECG When compared with ECG of 22-DEC-2021 15:55, No significant change was found Referred By: Brinda Mercer Electronically Signed By:NI LYNN
[2023-10-15] MEDS: Acetaminophen 325 MG TABLET 975 MG PO (17:40)
[2023-10-15] MEDS: Ibuprofen 600 MG TABLET PO (17:40)
[2023-10-15] MEDS: Potassium Chloride Packet 20 MEQ PACKET 40 MEQ PO (17:41)
[2023-10-15] MEDS: 0.9 % Sodium Chloride 1,000 ML 999 ML IV (17:48)
--- NOTE | 2023-10-15 17:52 | PC.NURSE ---
pt aox4. reports falling and hurting her right mastoid, swollen behind ear. Painful and tender to light palpation. IV placed 20g right AC. fluids infusing. medicated with pain meds. K given too. CT scan pending
[2023-10-15 18:05] LABS: Glucose, Whole Blood 87 mg/dL (60-115)
[2023-10-15] MEDS: iohexoL 350 MG/ML 100 ML INFUS..BTL 60 ML IV (18:38)
[2023-10-15 18:58] VITALS: BP 165/66; PULSE 62; RESP 18; TEMP 36.6; O2SAT 100
[2023-10-15 20:12] VITALS: BP 173/64; PULSE 67; RESP 17; TEMP 36.5; O2SAT 100
[2023-10-15 20:20] LABS: Glucose, Whole Blood 80 mg/dL (60-115)
[2023-10-15 21:33] VITALS: BP 173/64; PULSE 67; RESP 17; TEMP 36.5; O2SAT 100
== END 2023-10-15 21:34 | disposition home or self-care (01) ==
PROVIDERS: Nurse Practitioner Family; Emergency Provider Internal Medicine; PCP Internal Medicine
DX: R22.1 Localized swelling, mass and lump, neck (principal); R53.83 Other fatigue; R00.1 Bradycardia, unspecified; M54.2 Cervicalgia; R51.9 Headache, unspecified; R11.0 Nausea; Z79.899 Other long term (current) drug therapy
CPT/HCPCS: 36415; 70450; 70491; 80053; 82947; 85025; 93005; 96360; 99284; Q9967

== ENCOUNTER → 2023-10-15 17:05 | Outpatient (BNV) | payer OTHER, SELFPAY | PROVIDERS: Emergency Provider Internal Medicine; PCP Internal Medicine; Visit Provider Internal Medicine | DX: R00.1 Bradycardia, unspecified (principal) | CPT/HCPCS: 93010 ==

== ENCOUNTER 2023-11-17 10:53 | Outpatient (AMB) | payer OTHER, SELFPAY ==
[2023-11-17 10:56] VITALS: BP 140/64; PULSE 64; O2SAT 98; BMI 30.8
--- NOTE | 2023-11-17 10:56 | A.OFFPC_ITS ---
Vital Signs 11/17/23 10:56 Height 5 ft 1 in Weight 163 lb BMI 30.8 BP 140/64 H Blood Pressure Location Rt brachial Position Sitting Pulse 64 Pulse Source Pulse Oximeter Pulse Oximetry (%) 98 Oxygen Delivery Method Room Air Intake Visit Reasons: ED f/u Intake Note: Pt is here today to f/u ED Allergies No Known Allergies [No Known Allergies*] Allergy (Verified 11/17/23 11:08) Medication List - Last Reconciled 11/17/23 by María Cooper MD amlodipine 2.5 mg See Protocol PO DAILY atorvastatin 40 mg PO BEDTIME blood sugar diagnostic (FreeStyle Lite Strips) test blood sugar twice a day blood-glucose meter (FreeStyle Lite Meter kit) Three times a day cholecalciferol (vitamin D3) 1,250 mcg PO QWEEK 90 days ezetimibe 10 mg PO DAILY ibuprofen 600 mg PO BID PRN lancing device As directed lisinopril-hydrochlorothiazide 10-12.5 mg 1 tab PO DAILY metformin 500 mg PO DAILY ondansetron 4 mg PO Q6-8H PRN tizanidine 2 mg PO BEDTIME PRN [To [facility] .?Occupational Therapy evaluation for functional community mobility. NS] Tobacco use date assessed: 11/17/23 Dental Screening Dental Screen Date: 11/17/23 Did you have a dental visit in the last 12 months?: No Was dental information given to patient?: Patient declined HPI ED f/u HPI Details 58-year-old female with past medical hi story of diabetes mellitus, CVA with left-sided residual deficit, ASCVD, GERD, DJD, sleep apnea, asthma, depression, hypertension, dyslipidemia here today for follow-up after and ER visit last 10/2023 , where she presented with pain and swelling to the right posterior ear/ neck which seems to have increased in size as compared to previous exam.. CT soft tissue neck with IV contrast showed 1. Since 12/22/2021, interval increase in size of a right parotid gland mass largely involving the superficial right parotid lobe, measuring 3.0 x 2.4 x 3.8 cm, previously 2.2 x 1.9 x 3.1 cm., With new internal cystic/necrotic change There is increased partial compression of the right retromandibular vein between the mass in the mandibular condyle, which remains patent. 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 Stable asymmetric right level 2A lymph node measuring 1.4 cm in long axis. ENT consultation/follow-up advised. 2. No findings of acute right submandib ular sialoadenitis. A CTA of head and neck done 01/14 2021 showed nodular mass within the right parotid gland that measures 2.1 cm in diameter. She was then referr ed to ENT, , and patient states that she was told that it was a precancerous lesion and it was benign and not to worry about it . Did not receive any consult report from said ENT, and she was referred again in 2021 to another ENT for for follow-up, in no consult report again received from that referral. Patient states that she was seen but no further treatment was given. She has been seen and examined by Dr. Leblanc on 11/12/2023 and a follow-up CT of neck and soft tissue with contrast was ordered to be scheduled around 01/28/2024. He states that it is possible that she had some hemorrhage or infection in 2 the previously biopsied lesion which was felt to be a benign Warthin's tumor. [facility] Medical History Diabetes mellitus with retinopathy History of CVA with residual deficit Atherosclerotic cardiovascular disease History of stroke Intracranial atherosclerosis Normocytic normochromic anemia Cancer History of degenerative joint disease GERD (gastroesophageal reflux disease) Sleep apnea Asthma Depression Vitamin D deficiency Tubular adenoma of colon Essential hypertension Dyslipidemia Type 2 diabetes mellitus without complication, without long-term current use of insulin Surgical History Hx of hand surgery History of carpal tunnel release Hx of endoscopy Hx of colonoscopy Hx of cholecystectomy History of total abdominal hysterectomy Family History Father Cancer Mother Cancer Myocardial infarction Family/Other Diabetes Social History Household Members: Spouse Housing: Apartment Do you presently have visiting nurse or other home services: Yes Alcohol intake: current Alcohol intake frequency: holidays/special occasions only Patient Tobacco Use Status: Never used Tobacco e-Cigarette/Vaping Use: Never Used Advance Directives Date on File: 01/20/21 service: No Current occupational status: disabled Current occupation: rt handed Cognitive needs: No Hearing needs: No Vision needs: No Questionnaire PHQ-9 Over the last 2 weeks, how often have you been bothered by any of the following problems? 1. Little interest or pleasure in doing things: not at all 2. Feeling down, depressed, or hopeless: not at all 3. Trouble falling or staying asleep, or sleeping too much: not at all 4. Feeling tired or having little energy: not at all 5. Poor appetite or overeating: not at all 6. Feeling bad about yourself - or that you are a failure or have let yourself or your family down: not at all 7. Trouble concentrating on things, such as reading the newspaper or watching television: not at all 8. Moving or speaking so slowly that other people could have noticed. Or the opposite - being so fidgety or restless that you have been moving around a lot more than usual: not at all 9. Thoughts that you would be better off or of hurting yourself in some way: not at all Total score: 0 Depression Screening Interpretation: Negative Depression Screening Done: Yes 22334 - PHQ-9 Billing: Yes Source: Developed by Drs. Manish Eckert, Lola Bernard, Enrique Red and colleagues, with an educational jaime from [employer]. Thrive Questionnaire Date Thrive assessed: 11/17/23 I am a: Patient What is your living situation today?: I have a steady place to live Within the past 12 months, did the food you bought not last and you didn't have the money to get more?: Never true Within the past 12 months, did you worry whether your food would run out before you got money to buy more?: Never true Do you have trouble paying for medicines?: No Do you have trouble getting transportation to medical appointments?: No Do you have trouble paying your heating and electricity bill?: No Do you have trouble taking care of your child, family member or friend?: No Do you have trouble with day-to-day activities such as bathing, preparing meals, shopping, managing finances, etc.?: No Are you currently unemployed and looking for a job?: No Are you interested in more education?: No THRIVE Score: 0 AUDIT C Alcohol Use Questionnaire (AUDIT-C) 1. How often do you have a drink containing alcohol?: Never Total Score: 0 HAVEN-7 AMB Questionnaire HAVEN-7 Date HAVEN - 7 assessed: 11/17/23 Feeling nervous, anxious, or on edge: 0 = Not at all Not being able to stop or control worryin = Not at all Worrying too much about different things: 0 = Not at all Trouble relaxin = Not at all Being so restless that it is hard to sit still: 0 = Not at all Becoming easily annoyed or irritable: 0 = Not at all Feeling afraid as if something awful might happen: 0 = Not at all Total HAVEN-7 score (0-4 normal; 5-9 mild; 10-14 moderate; 15-21 severe): 0 Source: Developed by Drs. Manish Eckert, Lola Bernard, Enrique Red and colleagues, with an educational jaime from [employer]. Review of Systems Const Reports no additional complaints and Denies headache(s) Eyes Denies change in vision ENT Reports as per HPI, Denies dysphagia, Denies vertigo, Denies otalgia, Denies headache(s), Denies hoarseness, Denies mouth lesions, Denies nasal discharge, Denies neck pain, Denies post nasal drip, Denies tinnitus and Denies sore throat Card Denies chest pain, Denies rapid heart rate, Denies palpitations and Denies dyspnea Resp Denies cough and Denies dyspnea GI Denies abdominal pain, Denies melena, Denies change in bowel habits, Denies dysphagia and Denies heartburn Denies hematuria, Denies urinary frequency and Denies dysuria Musc Reports muscle weakness (left arm, unchanged), Denies neck pain, Reports numbness (left arm), Reports stiffness and Reports tingling (left arm) Skin/Breast Denies breast pain, Denies breast mass and Denies rash Neuro Denies vertigo, Denies headache(s), Reports numbness (left arm) and Reports tingling (left arm) Endo Reports cold intolerance (left upper extremity), Denies polydipsia, Denies polyuria and Denies palpitations Rodrigo/Lymph Denies easy bruising Aller/Immun Reports no additional complaints Physical exam (Primary Care) Vital Signs: Last Vital Signs Pulse 64 11/17/23 10:56 BP 140/64 H 11/17/23 10:56 Pulse Ox 98 11/17/23 10:56 Oxygen Delivery Method Room Air 11/17/23 10:56 BMI result Body Mass Index 30.8 Tobacco/Smoking Status: Tobacco use Status Tobacco use date assessed 11/17/23 11/17/23 11:02 Patient Tobacco Use Status Never used Tobacco 11/17/23 11:02 e-Cigarette/Vaping Use Never Used 11/17/23 11:02 PHQ-9: PHQ-9 Score PHQ-9: Total score 0 11/18/23 08:23 Depression Screening Interpretation: Negative Thrive Assessment: Date of Thrive Assessment Date Thrive assessed 11/17/23 11/17/23 11:02 Const General: comfortable, no acute distress and alert Orientation/consciousness: patient oriented x3 HENMT Head: Yes normocephalic and Yes atraumatic Ears: external ears normal, TM's normal bilaterally and EAC's normal General nose exam: Normal external nose present and No nasal discharge present Face and sinus: Yes Flattened naso-labial fold present (On left, Unchanged from previous visits) and Yes other (Irregularly defined mass on right parotid area, nontender) Mouth: Normal oral and palatal mucosa present, tongue normal (Midline on protrusion), oropharynx normal and moist mucous membranes Eyes General: appearance normal, both eyes and all related structures Neck Neck: Yes full ROM, Yes no lymphadenopathy and Yes supple Resp Effort & Inspection: normal respiratory effort and able to speak in complete sentences Auscultation: clear to auscultation bilaterally Cardio Rate: regular rate Rhythm: regular rhythm Heart sounds: S1 normal heart sound present and S2 normal heart sound present GI Inspection: Yes normal to inspection Palpation (GI): Soft to palpation, nontender and no masses Auscultation: normal bowel sounds Skin General skin exam: no rashes or lesions noted Neuro General: patient oriented x3 Cognition (Neuro): normal cognition Extrem Other: Left arm with contracture deformity Results Reviewed Results Reviewed: Name: Marisol Moss Age/Sex: 58/F : 1965 Unit#: [id number] Attend Dr: Jerry London MD Re10/15/23 Status: DEP [facility] Disch: SPEC : [id number] [place] 10/15/23-161 STATUS: COMP REQ : [id number] RECD: 10/15/23-[address]: Brinda Mercer CNP COMP: 10/15/23-1601 ENTERED: 10/15/23-[address]: María Cooper MD ORDERED: CBC Auto Diff Test Result Flag Reference WBC 7.7 4.8-10.8 X10*3/uL RBC 3.72 L 4.20-5.50 X10*6/uL HGB 10.6 L 12.0-16.0 g/dl HCT 30.9 L 37.0-47.0 % MCV 83.1 80.0-98.0 fL MCH 28.5 27.0-33.0 pg MCHC 34.3 31.0-35.0 g/dl RDW 13.2 11.0-16.0 % PLT 158 L 160-400 X10*3/uL MPV 11.5 9.4-12.3 fL Neut Pct Auto 71.6 45-73 % ImGran Pct Auto 0.4 0.0-0.4 % Lymp Pct Auto 17.4 L 20-40 % [place] Pct Auto 8.5 2-11 % Eos Pct Auto 1.6 0-4 % Baso Pct Auto 0.5 0-2 % NRBC Pct Auto 0.0 0.0-0.2 /100WBC ANC Neut Abs # 5.5 2.0-8.3 x10*3/uL ImGran Abs Auto 0.03 0.00-0.03 X10*3/uL Lymph Abs Auto 1.4 1.2-4.9 X10*3/uL [place] Abs Auto 0.7 0.1-1.2 X10*3/uL Eos Abs Auto 0.1 0.0-0.4 X10*3/uL Baso Abs Auto 0.0 0.0-0.2 X10*3/uL NRBC Abs Auto 0.000 0.0-0.012 X10*3/uL Laboratory Tests 10/15/23 10/15/23 18:01 20:17 POC Glucose 87 80 Name: Marisol Moss Age/Sex: 58/F : 1965 Unit#: [id number] Attend Dr: Jerry London MD Re10/15/23 Status: DEP ER Location: [facility] Disch: SPEC : [id number] [place] 10/15/23-1618 STATUS: COMP REQ : [id number] RECD: 10/15/23-[address]: Brinda Mercer CNP COMP: 10/15/23-170 ENTERED: 10/15/23-[address]: María Cooper MD ORDERED: CMP Test Result Flag Reference Sodium 142 135-145 mmol/L Potassium 3.1 L 3.3-5.1 mmol/L CL 107 96-108 mmol/L CO2 26 22-29 mmol/L Gap 12 12-20 BUN 39 H 9-16 mg/dL Creat 0.95 0.5-1.4 mg/dL Estimated CrCl 57.8 Provided height and weight: 154.94 cm, 73.8 kg. eGFR (calculated from the MDRD study equation) and eCrCl (calculated from the Cockcroft-Gault equation) are based on different parameters and may not yield comparable results. If eCrCl result is absurd, please check patient's height/weight. EGFR > 60 NOTE: For -Stateless individuals, multiply the result by 1.210. Chronic Kidney Disease: Estimated GFR < 60 mL/min/1.73m2 Severe Kidney Disease: Estimated GFR < 15 mL/min/1.73m2 Glucose, Random 124 H 60-115 mg/dL CA 8.7 # 8.4-10.2 mg/dL Total Bili 0.2 0.0-1.0 mg/dL AST (GOT) 15 5-31 U/L ALT (GPT) 12 0-31 U/L Protein, Total 7.4 6.5-8.0 g/dL Alb 3.6 3.5-5.0 g/dL Alk Phos 81 39-117 U/L Laboratory Tests Assessment and Plan Assessment & Plan (1) Mass of right parotid gland: Code(s): K11.8 - Other diseases of salivary glands Plan: Patient already seen and evaluated by Dr. Leblanc, who recommended a repeat follow-up CT head and neck to be done in 01/28/2024. He states that it is possible that she had some hemorrhage or infection in 2 the previously biopsied lesion which was felt to be a benign Warthin's tumor. (2) Dyslipidemia: Code(s): E78.5 - Hyperlipidemia, unspecified Plan: Fasting lipid panel ordered, continue with healthy eating habits, ezetimibe 10 mg daily (3) Essential hypertension: Code(s): I10 - Essential (primary) hypertension Plan: systolic blood pressure still not at goal but lower than last check. Continued on lisinopril-HCT 10-12.5 mg taken once daily in a.m and amlodipine 52.5 mg once a day at night with supper. Blood pressure at goal of less than 130/80. Continue with current medication. Reinforced importance of following a low sodium diet, getting regular exercise, and lowering stress levels. (4) Diabetes mellitus with retinopathy: Code(s): E11.319 - Type 2 diabetes mellitus with unspecified diabetic retinopathy without macular edema Plan: Hemoglobin A1c ordered together with a basic metabolic panel and random microalbumin check. Will continue on Trulicity 0.75 mg injected weekly, together with metformin 500 mg once a day and reinforced importance of following recommended diet and staying active. Orders: Orders Alanine Aminotransferase 11/18/23 E11.319 - Type 2 diabetes mellitus with unspecified diabetic retinopathy without macular edema, E55.9 - Vitamin D deficiency, unspecified, E78.5 - Hyperlipidemia, unspecified, I10 - Essential (primary) hypertension, I69.30 - Unspecified sequelae of cerebral infarction Basic Metabolic Panel Fasting 11/18/23 E11.319 - Type 2 diabetes mellitus with unspecified diabetic retinopathy without macular edema, E55.9 - Vitamin D deficiency, unspecified, E78.5 - Hyperlipidemia, unspecified, I10 - Essential (primary) hypertension, I69.30 - Unspecified sequelae of cerebral infarction Complete Blood Count Auto Diff 11/18/23 E11.319 - Type 2 diabetes mellitus with unspecified diabetic retinopathy without macular edema, E55.9 - Vitamin D deficiency, unspecified, E78.5 - Hyperlipidemia, unspecified, I10 - Essential (primary) hypertension, I69.30 - Unspecified sequelae of cerebral infarction Vitamin D 25-OH Total 11/18/23 E11.319 - Type 2 diabetes mellitus with unspecified diabetic retinopathy without macular edema, E55.9 - Vitamin D deficiency, unspecified, E78.5 - Hyperlipidemia, unspecified, I10 - Essential (primary) hypertension, I69.30 - Unspecified sequelae of cerebral infarction Hemoglobin A1c 11/18/23 E11.319 - Type 2 diabetes mellitus with unspecified diabetic retinopathy without macular edema, E55.9 - Vitamin D deficiency, unspecified, E78.5 - Hyperlipidemia, unspecified, I10 - Essential (primary) hypertension, I69.30 - Unspecified sequelae of cerebral infarction Lipid Panel 11/18/23 E11.319 - Type 2 diabetes mellitus with unspecified diabetic retinopathy without macular edema, E55.9 - Vitamin D deficiency, unspecified, E78.5 - Hyperlipidemia, unspecified, I10 - Essential (primary) hypertension, I69.30 - Unspecified sequelae of cerebral infarction Aspartate Amino Transferase 11/18/23 E11.319 - Type 2 diabetes mellitus with unspecified diabetic retinopathy without macular edema, E55.9 - Vitamin D deficiency, unspecified, E78.5 - Hyperlipidemia, unspecified, I10 - Essential (primary) hypertension, I69.30 - Unspecified sequelae of cerebral infarction IRON PROFILE 11/18/23 E11.319 - Type 2 diabetes mellitus with unspecified diabetic retinopathy without macular edema, E55.9 - Vitamin D deficiency, unspecified, E78.5 - Hyperlipidemia, unspecified, I10 - Essential (primary) hypertension, I69.30 - Unspecified sequelae of cerebral infarction Microalbumin, Random (w Creat) 11/18/23 E11.319 - Type 2 diabetes mellitus with unspecified diabetic retinopathy without macular edema, E55.9 - Vitamin D deficiency, unspecified, E78.5 - Hyperlipidemia, unspecified, I10 - Essential (primary) hypertension, I69.30 - Unspecified sequelae of cerebral infarction Medications: New blood sugar diagnostic (FreeStyle Lite Strips) Check fasting blood sugar twice a day before meals 100 ea 5RF E11.319 - Type 2 diabetes mellitus with unspecified diabetic retinopathy without macular edema Refilled Trulicity (dulaglutide) 0.75 mg (0.5 mL) subcut TU@0900 2 mL 5RF NS E11.319 - Type 2 diabetes mellitus with unspecified diabetic retinopathy without macular edema, I69.30 - Unspecified sequelae of cerebral infarction Coding Level of Care Code Est Pt Level 4 (18955) Complex EM visit Add On G2211 Diagnoses Mass of right parotid gland K11.8 Dyslipidemia E78.5 Essential hypertension I10 Diabetes mellitus with retinopathy E11.319
== END 2023-11-17 14:23 | disposition home or self-care (01) ==
PROVIDERS: PCP Internal Medicine; Visit Provider Internal Medicine
DX: K11.8 Other diseases of salivary glands (principal); E78.5 Hyperlipidemia, unspecified; I10 Essential (primary) hypertension; E11.319 Type 2 diabetes mellitus with unspecified diabetic retinopathy without macular edema
CPT/HCPCS: 99214; G2211

== ENCOUNTER 2023-11-18 10:20 | Outpatient (REF) | payer OTHER, SELFPAY ==
[2023-11-18 13:05] LABS: MANUAL DIFF FLAG NO
[2023-11-18 13:14] LABS: Basophils Percent Auto 0.5 % (0-2); Eosinophils Absolute Auto 0.1 X10*3/uL (0.0-0.4); Eosinophils Percent Auto 1.1 % (0-4); Hematocrit 33.9 % (37.0-47.0); Hemoglobin 10.9 g/dl (12.0-16.0); Imm Gran Abs Auto 0.02 X10*3/uL (0.00-0.03); Imm Gran Pct Auto 0.3 % (0.0-0.4); Lymphocytes Absolute Auto 1.3 X10*3/uL (1.2-4.9); Lymphocytes Percent Auto 20.4 % (20-40); Mean Corpuscular HGB Conc 32.2 g/dl (31.0-35.0); Mean Corpuscular Hemoglobin 27.9 pg (27.0-33.0); Mean Corpuscular Volume 86.9 fL (80.0-98.0); Mean Platelet Volume 11.7 fL (9.4-12.3); Monocytes Absolute Auto 0.5 X10*3/uL (0.1-1.2); Monocytes Percent Auto 7.9 % (2-11); Neutrophils Absolute Auto 4.4 x10*3/uL (2.0-8.3); Neutrophils Percent Auto 69.8 % (45-73); Platelet Count 188 X10*3/uL (160-400); Red Cell Distribution Width 14.7 % (11.0-16.0); White Blood Count 6.3 X10*3/uL (4.8-10.8)
[2023-11-18 13:17] LABS: Estimated Average Glucose 143 mg/dL; Hemoglobin A1c % 6.6 % (<6.0)
[2023-11-18 13:36] LABS: Alanine Aminotransferase 9 U/L (0-31); Anion Gap 12 (12-20); Aspartate Amino Transferase 12 U/L (5-31); Blood Urea Nitrogen 21 mg/dL (9-16); Calcium 9.4 mg/dL (8.4-10.2); Carbon Dioxide 30 mmol/L (22-29); Chloride 105 mmol/L (96-108); Cholesterol 196 mg/dL (<200); Estimated Glomerular Filt Rate > 60; Glucose Fasting 151 mg/dL (60-99); HDL Cholesterol 45 mg/dL (>40); Iron 57 mcg/dL (30-160); LDL Cholesterol Calculated 133 mg/dL (<100); Percent Iron Saturation 23 % (15-50); Sodium 143 mmol/L (135-145); Total Iron Binding Capacity 249 mcg/dL (228-428); Triglycerides 91 mg/dL (<150); Unsaturated Iron Binding 192 ug/dL
[2023-11-18 13:53] LABS: Creatinine Urine 106.59 mg/dL; Microalbum/Creatinine Ratio Ur 110.7 ug/mg cr (<30)
[2023-11-18 13:57] LABS: Vitamin D 25-OH Total 24.4 ng/mL (>30)
[2023-11-18 14:01] LABS: Folate 4.8 ng/mL (> or = 4.0); Vitamin B12 243 pg/mL (200-900)
== END 2023-11-18 10:21 | disposition home or self-care (01) ==
LOC: HO.HMGCLDS 10:20
PROVIDERS: PCP Internal Medicine; Visit Provider Internal Medicine
DX: E11.8 Type 2 diabetes mellitus with unspecified complications (principal); I25.10 Atherosclerotic heart disease of native coronary artery without angina pectoris; E78.5 Hyperlipidemia, unspecified; I10 Essential (primary) hypertension; I69.30 Unspecified sequelae of cerebral infarction; E11.319 Type 2 diabetes mellitus with unspecified diabetic retinopathy without macular edema
CPT/HCPCS: 36415; 80048; 80061; 82043; 82306; 82570; 82607; 82746; 83036; 83540; 84450; 84460; 85025

== ENCOUNTER → 2024-01-11 10:38 | Outpatient (RCR) | payer OTHER, SELFPAY ==
[2021-01-20 14:06] VITALS: BP 126/72; PULSE 80; RESP 14; TEMP 36.2; O2SAT 97; BMI 28.6
--- NOTE | 2021-01-20 14:14 | PM.HEMONCCN ---
Subjective - Subjective Chief complaint: Nausea Patient: new to practice Consult date: 01/20/21 Primary Care Provider: María Cooper MD HPI - Consult Narrative Reason for consult: Normocytic anemia Narrative: Marisol Moss is a 55 year old female referred for evaluation of chronic normocytic anemia. She is noted to be anemic in 2020 with hemoglobin around 11.5 gram/dL, previously in 2019 her hemoglobin was 12 gram/dL. She has had intermittent thrombocytopenia which has been chronic. Her highest hemoglobin has been around 13 gram/dL. Patient reports dizziness and nausea since she started an antibiotic for UTI. She denies loss of appetite or weight loss, she is trying to lose weight. She denies diarrhea, hematochezia or melena. She finished a course of iron that was prescribed by her PCP. She reports chronic fatigue. Review of Systems - Constitutional Reports as per HPI, Reports no additional constitutional complaints - Cardiovascular Reports no additional cardiovascular complaints - Respiratory Reports no additional respiratory complaints - Gastrointestinal Reports no additional gastrointestinal complaints [facility] Medical History: Medical History (Last Reviewed 01/20/21 @ 14:09 by Shauna Siddiqui) Anemia Asthma Cancer CVA (cerebral vascular accident) Depression Dyslipidemia Essential hypertension GERD (gastroesophageal reflux disease) History of degenerative joint disease Hx: UTI (urinary tract infection) Mass of right parotid gland Menopause Normocytic normochromic anemia Sleep apnea Tubular adenoma of colon Type 2 diabetes mellitus without complication, without long-term current use of insulin Vitamin D deficiency Family History: Family History (Last Reviewed 01/12/21 @ 21:58 by María Cooper MD) Father Cancer Mother Cancer Myocardial infarction Family/Other Diabetes Surgical History: Surgical History (Last Reviewed 01/14/21 @ 12:25 by LAURA Mehta) History of carpal tunnel release History of total abdominal hysterectomy Hx of cholecystectomy Hx of colonoscopy Hx of endoscopy Hx of hand surgery Social History: Social History (Last Updated 01/20/21 @ 14:10 by Shauna Siddiqui) Living Situation History: Household Members: Spouse Housing: Apartment Do you presently have visiting nurse or other home services: Yes Alcohol History: Alcohol intake: current Alcohol History Details: Alcohol intake frequency: holiday/special occasion Tobacco History: Patient Tobacco Use Status: Never used Tobacco e-Cigarette/Vaping Use: Never Used Substance Use History: Use of substances other than those prescribed or required for medical reasons: No Occupation Assessmet: service: No Current occupational status: disabled Current occupation: rt handed Home Medications and Allergies Home Medications Medication Instructions Recorded Confirmed Type gabapentin 100 mg capsule 100 mg PO DAILY cap 07/19/20 01/20/21 History dulaglutide 1.5 mg/0.5 mL 1.5 mg SUBCUT TH 01/14/21 01/20/21 History subcutaneous pen injector (Trulicity) metformin 500 mg tablet 1 tab PO DAILY 01/14/21 01/20/21 History Allergies Allergy/AdvReac Type Severity Reaction Status Date / Time No Known Allergies Allergy Verified 01/20/21 14:10 [No Known Allergies*] Physical Exam Vital signs: Vital Signs Temp 97.2 F 01/20/21 14:06 Pulse 80 01/20/21 14:06 Resp 14 01/20/21 14:06 BP 126/72 01/20/21 14:06 Pulse Ox 97 01/20/21 14:06 Intake & Output 01/19/21 01/20/21 01/20/21 18:59 06:59 18:59 Other: Weight 68.7 kg Weight in Grams 31653 Weight 68.7 kg - Constitutional Present: no acute distress - Routine HEENT Exam Head: Present: normal inspection Eye: Present: EOMI, normal appearance - Routine Neck Exam Present: supple. Absent: lymphadenopathy - Routine Respiratory Exam Present: CTAB. Absent: accessory muscle use - Routine Cardiovascular Exam Cardiovascular: Present: RRR, S1, S2 - Routine Abdominal Exam Present: soft. Absent: mass - Routine Extremities Exam Present: pulses intact. Absent: pedal edema - Routine Skin Exam Present: intact. Absent: cyanosis - Routine Neurological Exam Present: alert, oriented X3 Hem/Onc Consult Result - Labs CBC & Chem 7: 01/20/21 14:40 Assessment and Plan Patient Active problem list reviewed?: Yes (1) Normocytic normochromic anemia Status: Chronic Assessment and plan: 1. This is a 55-year-old woman with chronic normocytic anemia which is noted to worsen in 2020. She has been diagnosed in January 2021 with E coli UTI and is on antibiotics. She is actually quite symptomatic with nausea and is requesting antiemetics. She does not have chronic kidney or liver disease. She is a longstanding diabetic. Her ESR was elevated in August and she has some reticulocytopenia. She had recent imaging, CT abdomen/ pelvis in January 2021 did not show any acute pathology. She had a CTA of head/neck which showed a nodule in right parotid which appears to be slowly growing. She has been referred to ENT in [facility] for this. Probable etiology for her anemia is recent ongoing infection and use of antibiotics. Further hematological workup with serum protein electrophoresis /immunofixation has been ordered. She does not have any constitutional symptoms. I will see her in follow-up and monitor her blood counts. I thank you very much for this consultation. - Time Spent With Patient Time Spent with Patient (in minutes): 30
[2021-01-20 14:44] LABS: MANUAL DIFF FLAG NO
[2021-01-20 14:54] LABS: Basophils Percent Auto 0.3 % (0-2); Eosinophils Absolute Auto 0.1 X10*3/uL (0.0-0.4); Eosinophils Percent Auto 0.7 % (0-4); Hematocrit 33.7 % (37-47); Imm Gran Abs Auto 0.03 X10*3/uL (0.00-0.03); Imm Gran Pct Auto 0.3 % (0.0-0.4); Immature Retic Fraction 2.8 % (3.0-15.9); Lymphocytes Absolute Auto 1.2 X10*3/uL (1.2-4.9); Mean Corpuscular HGB Conc 32.6 g/dl (31.0-35.0); Mean Corpuscular Hemoglobin 27.8 pg (27.0-33.0); Mean Corpuscular Volume 85.1 fL (80-98); Mean Platelet Volume 11.2 fL (9.4-12.3); Monocytes Absolute Auto 0.5 X10*3/uL (0.1-1.2); Monocytes Percent Auto 5.5 % (2-11); Neutrophils Absolute Auto 7.3 X10*3/uL (2.0-8.3); Neutrophils Percent Auto 80.2 % (45-73); Platelet Count 194 X10*3/uL (160-400); Red Blood Count 3.96 X10*6/uL (4.20-5.50); Red Cell Distribution Width 13.3 % (11.0-16.0); Retic HGB Equivalent 32.9 pg (30.0-35.0); Reticulocyte Percent 0.8 % (0.5-1.8); Reticulocytes Absolute 0.031 X10*6/uL (0.026-0.095); White Blood Count 9.1 X10*3/uL (4.8-10.8)
[2021-01-20 15:07] LABS: Iron 59 mcg/dL (30-160); Percent Iron Saturation 20 % (15-50); Total Iron Binding Capacity 298 mcg/dL (228-428); Unsaturated Iron Binding 239 ug/dL
--- NOTE | 2021-01-20 15:21 | MHC.HEMONCMA ---
Patient came in for a consult today, states that she is feeling dizzy and having headaches with nausea. Clinical summary was reviewed and updated. Patient had labs and will return in 2 months for a follow up.
[2021-01-20 17:06] LABS: Folate 7.2 ng/mL (> or = 4.0); Vitamin B12 203 pg/mL (200-900)
[2021-01-26 22:02] LABS: Prot Elec - Albumin 3.2 g/dL (3.8-4.8); Prot Elec - Alpha1 0.3 g/dL (0.2-0.3); Prot Elec - Alpha2 0.7 g/dL (0.5-0.9); Prot Elec - Beta 1 0.5 g/dL (0.4-0.6); Prot Elec - Beta 2 0.5 g/dL (0.2-0.5); Prot Elec - Gamma 1.4 g/dL (0.8-1.7); Prot Elec - Total Protein 6.6 g/dL (6.1-8.1)
[2021-01-27 12:32] LABS: IgA 338 mg/dL (47-310); IgG 1600 mg/dL (600-1640); IgM 100 mg/dL (50-300)
== END | disposition home or self-care (01) ==
LOC: HO.ONC 01-20 13:46
PROVIDERS: PCP Internal Medicine; Referring Provider Internal Medicine; Visit Provider Internal Medicine
DX: D64.9 Anemia, unspecified (principal); D69.6 Thrombocytopenia, unspecified; R70.0 Elevated erythrocyte sedimentation rate; E11.9 Type 2 diabetes mellitus without complications
CPT/HCPCS: 36415; 82607; 82746; 82784; 83540; 84165; 85025; 85045; 86334; 99202

== ENCOUNTER 2024-01-31 12:46 | Outpatient (AMB) | payer OTHER, SELFPAY ==
--- NOTE | 2024-01-31 13:01 | A.OFFPC_ITS ---
Vital Signs 01/31/24 13:03 Height 5 ft 1 in Weight 164 lb BMI 31.0 BP 126/74 Blood Pressure Location Rt brachial Position Sitting Pulse 71 Pulse Source Pulse Oximeter Pulse Oximetry (%) 96 Oxygen Delivery Method Room Air Intake Visit Reasons: discuss paperwork for [facility] Allergies No Known Allergies [No Known Allergies*] Allergy (Verified 01/31/24 13:25) Medication List - Last Reconciled 01/31/24 by María Cooper MD amlodipine 2.5 mg See Protocol PO DAILY atorvastatin 80 mg PO BEDTIME 3 months blood sugar diagnostic (FreeStyle Lite Strips) test blood sugar twice a day blood sugar diagnostic (FreeStyle Lite Strips) Check fasting blood sugar twice a day before meals blood-glucose meter (FreeStyle Lite Meter kit) Three times a day cholecalciferol (vitamin D3) 1,250 mcg PO QWEEK 90 days cholecalciferol (vitamin D3) 1,250 mcg PO QWEEK 3 months ezetimibe 10 mg PO DAILY ibuprofen 600 mg PO BID PRN lancing device As directed lisinopril-hydrochlorothiazide 10-12.5 mg 1 tab PO DAILY metformin 500 mg PO DAILY ondansetron 4 mg PO Q6-8H PRN tizanidine 2 mg PO BEDTIME PRN [To [place] [facility] .?Occupational Therapy evaluation for functional community mobility. 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 She is also here for follow-up on her diabetes mellitus. Has been compliant with taking medications but is mostly sedentary. REPLACED BY [facility] Medical History Diabetes mellitus with retinopathy History of CVA with residual deficit Atherosclerotic cardiovascular disease History of stroke Intracranial atherosclerosis Normocytic normochromic anemia Cancer History of degenerative joint disease GERD (gastroesophageal reflux disease) Sleep apnea Asthma Depression Vitamin D deficiency Tubular adenoma of colon Essential hypertension Dyslipidemia Type 2 diabetes mellitus without complication, without long-term current use of insulin Surgical History Hx of hand surgery History of carpal tunnel release Hx of endoscopy Hx of colonoscopy Hx of cholecystectomy History of total abdominal hysterectomy Family History Father Cancer Mother Cancer Myocardial infarction Family/Other Diabetes Social History Household Members: Spouse Housing: Apartment Do you presently have visiting nurse or other home services: Yes Alcohol intake: current Alcohol intake frequency: holidays/special occasions only Patient Tobacco Use Status: Never used Tobacco e-Cigarette/Vaping Use: Never Used Advance Directives Date on File: 01/20/21 service: No Current occupational status: disabled Current occupation: rt handed Cognitive needs: No Hearing needs: No Vision needs: No Questionnaire PHQ-9 Over the last 2 weeks, how often have you been bothered by any of the following problems? Depression Screening Interpretation: Negative Depression Screening Done: Yes Source: Developed by Drs. Manish Eckert, Lola Bernard, Enrique Red and colleagues, with an educational jaime from [email or web address]. Thrive Questionnaire Date Thrive assessed: 11/17/23 HAVEN-7 AMB Questionnaire HAVEN-7 Date HAVEN - 7 assessed: 11/17/23 Source: Developed by Drs. Manish Eckert, Lola Bernard, Enrique Red and colleagues, with an educational jaime from [email or web address]. Review of Systems Const Reports no additional complaints and Denies headache(s) Eyes Details: Up-to-date with her diabetes retinopathy screening Denies change in vision ENT Reports as per HPI, Denies dysphagia, Denies vertigo, Denies otalgia, Denies headache(s), Denies hoarseness, Denies mouth lesions, Denies nasal discharge, Denies neck pain, Denies post nasal drip, Denies tinnitus and Denies sore throat Card Denies chest pain, Denies rapid heart rate, Denies palpitations and Denies dys pnea Resp Denies cough and Denies dyspnea GI Denies abdominal pain, Denies melena, Denies change in bowel habits, Denies dysphagia and Denies heartburn Denies hematuria, Denies urinary frequency and Denies dysuria Musc Reports muscle weakness (left arm, unchanged), Denies neck pain, Reports numbn ess (left arm), Reports stiffness and Reports tingling (left arm) Skin/Breast Denies breast pain, Denies breast mass and Denies rash Neuro Denies vertigo, Denies headache(s), Reports numbness (left arm) and Reports tingling (left arm) Endo Reports cold intolerance (left upper extremity), Denies polydipsia, Denies polyuria and Denies palpitations Rodrigo/Lymph Denies easy bruising Aller/Immun Reports no additional complaints Physical exam (Primary Care) Vital Signs: Last Vital Signs Pulse 71 01/31/24 13:03 BP 126/74 01/31/24 13:03 Pulse Ox 96 01/31/24 13:03 Oxygen Delivery Method Room Air 01/31/24 13:03 BMI result Body Mass Index 31.0 Tobacco/Smoking Status: Tobacco use Status Tobacco use date assessed 01/31/24 01/31/24 13:06 Patient Tobacco Use Status Never used Tobacco 01/31/24 13:03 e-Cigarette/Vaping Use Never Used 01/31/24 13:03 Depression Screening Interpretation: Negative Thrive Assessment: Date of Thrive Assessment Date Thrive assessed 11/17/23 01/31/24 13:03 Const General: comfortable, no acute distress and alert Orientation/consciousness: patient oriented x3 HENMT Head: Yes normocephalic and Yes atraumatic Ears: external ears normal, TM's normal bilaterally and EAC's normal General nose exam: Normal external nose present and No nasal discharge present Face and sinus: Yes Flattened naso-labial fold present (On left, Unchanged from previous visits) and Yes other (Irregularly defined mass on right parotid area, nontender) Mouth: Normal oral and palatal mucosa present, tongue normal (Midline on protrusion), oropharynx normal and moist mucous membranes Eyes General: appearance normal, both eyes and all related structures Neck Neck: Yes full ROM, Yes no lymphadenopathy and Yes supple Resp Effort & Inspection: normal respiratory effort and able to speak in complete sentences Auscultation: clear to auscultation bilaterally Cardio Rate: regular rate Rhythm: regular rhythm Heart sounds: S1 normal heart sound present and S2 normal heart sound present GI Inspection: Yes normal to inspection Palpation (GI): Soft to palpation, nontender and no masses Auscultation: normal bowel sounds Skin General skin exam: no rashes or lesions noted Neuro General: patient oriented x3 Cognition (Neuro): normal cognition Extrem Other: Left arm with contracture deformity Coding Level of Care Code Est Pt Level 4 (25715) Complex EM visit Add On G2211 Diagnoses 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
[2024-01-31 13:03] VITALS: BP 126/74; PULSE 71; O2SAT 96; BMI 31.0
== END 2024-01-31 14:56 | disposition home or self-care (01) ==
PROVIDERS: PCP Internal Medicine; Visit Provider Internal Medicine
DX: E11.3553 Type 2 diabetes mellitus with stable proliferative diabetic retinopathy, bilateral (principal); I69.30 Unspecified sequelae of cerebral infarction

== ENCOUNTER → 2024-01-31 12:46 | Outpatient (BNVA) | payer OTHER, SELFPAY | PROVIDERS: PCP Internal Medicine; Visit Provider Internal Medicine ==

== ENCOUNTER 2024-01-31 13:54 | Outpatient (REF) | payer OTHER, SELFPAY ==
[2024-01-31 16:22] LABS: MANUAL DIFF FLAG NO
[2024-01-31 16:53] LABS: Basophils Percent Auto 0.5 % (0-2); Eosinophils Absolute Auto 0.1 X10*3/uL (0.0-0.4); Eosinophils Percent Auto 1.3 % (0-4); Hematocrit 37.4 % (37.0-47.0); Hemoglobin 12.2 g/dl (12.0-16.0); Imm Gran Abs Auto 0.02 X10*3/uL (0.00-0.03); Imm Gran Pct Auto 0.3 % (0.0-0.4); Lymphocytes Absolute Auto 1.5 X10*3/uL (1.2-4.9); Lymphocytes Percent Auto 23.7 % (20-40); Mean Corpuscular HGB Conc 32.6 g/dl (31.0-35.0); Mean Corpuscular Hemoglobin 28.2 pg (27.0-33.0); Mean Corpuscular Volume 86.6 fL (80.0-98.0); Mean Platelet Volume 11.7 fL (9.4-12.3); Monocytes Absolute Auto 0.4 X10*3/uL (0.1-1.2); Monocytes Percent Auto 6.4 % (2-11); Neutrophils Absolute Auto 4.3 x10*3/uL (2.0-8.3); Neutrophils Percent Auto 67.8 % (45-73); Platelet Count 182 X10*3/uL (160-400); Red Blood Count 4.32 X10*6/uL (4.20-5.50); Red Cell Distribution Width 13.2 % (11.0-16.0); White Blood Count 6.4 X10*3/uL (4.8-10.8)
[2024-01-31 17:06] LABS: Estimated Average Glucose 137 mg/dL; Hemoglobin A1c % 6.4 % (<6.0)
[2024-01-31 17:27] LABS: Alanine Aminotransferase 11 U/L (0-31); Anion Gap 13 (12-20); Aspartate Amino Transferase 15 U/L (5-31); Blood Urea Nitrogen 19 mg/dL (9-16); Calcium 9.6 mg/dL (8.4-10.2); Carbon Dioxide 30 mmol/L (22-29); Chloride 103 mmol/L (96-108); Cholesterol 216 mg/dL (<200); Estimated Glomerular Filt Rate > 60; Glucose Fasting 114 mg/dL (60-99); HDL Cholesterol 58 mg/dL (>40); LDL Cholesterol Calculated 139 mg/dL (<100); Potassium 4.7 mmol/L (3.3-5.1); Sodium 141 mmol/L (135-145); Triglycerides 95 mg/dL (<150)
[2024-01-31 17:29] LABS: Vitamin D 25-OH Total 28.9 ng/mL (>30)
[2024-02-02 12:28] LABS: Prot Elec - Albumin 3.7 g/dL (3.8-4.8); Prot Elec - Alpha1 0.3 g/dL (0.2-0.3); Prot Elec - Alpha2 0.7 g/dL (0.5-0.9); Prot Elec - Beta 1 0.5 g/dL (0.4-0.6); Prot Elec - Beta 2 0.5 g/dL (0.2-0.5); Prot Elec - Gamma 1.5 g/dL (0.8-1.7); Prot Elec - Total Protein 7.2 g/dL (6.1-8.1)
== END 2024-01-31 13:55 | disposition home or self-care (01) ==
LOC: HO.HMGCLDS 13:54
PROVIDERS: PCP Internal Medicine; Visit Provider Internal Medicine
DX: E11.3553 Type 2 diabetes mellitus with stable proliferative diabetic retinopathy, bilateral (principal); I69.30 Unspecified sequelae of cerebral infarction; E78.5 Hyperlipidemia, unspecified; I10 Essential (primary) hypertension; E55.9 Vitamin D deficiency, unspecified; E66.9 Obesity, unspecified
CPT/HCPCS: 36415; 80048; 80061; 82306; 83036; 84165; 84450; 84460; 85025; 99212

== ENCOUNTER 2024-02-16 13:15 | Outpatient (AMB) | payer OTHER, SELFPAY ==
--- NOTE | 2024-02-16 13:39 | A.OFFPC_ITS ---
Vital Signs 02/16/24 13:42 Height 5 ft 1 in Weight 163 lb 2 oz BMI 30.8 BP 112/68 Blood Pressure Location Rt brachial Position Sitting Pulse 70 Pulse Source Pulse Oximeter Pulse Oximetry (%) 98 Oxygen Delivery Method Room Air Intake Visit Reasons: 3 month follow up DM, Lipids, HTN Intake Note: Patient is here to follow up on DM, Lipids, HTN. Request Wayfinder form be noy jimenez Manager R D Required: No Tool Drawing Checker: Not Required per policy Accompanied by: Self / Same As Patient Allergies No Known Allergies [No Known Allergies*] Allergy (Verified 02/16/24 14:07) Medication List - Last Reconciled 02/16/24 by María Cooper MD amlodipine 2.5 mg See Protocol PO DAILY atorvastatin 80 mg PO BEDTIME 3 months blood sugar diagnostic (FreeStyle Lite Strips) test blood sugar twice a day blood sugar diagnostic (FreeStyle Lite Strips) Check fasting blood sugar twice a day before meals blood-glucose meter (FreeStyle Lite Meter kit) Three times a day cholecalciferol (vitamin D3) 1,250 mcg PO QWEEK 90 days cholecalciferol (vitamin D3) 1,250 mcg PO QWEEK 3 months dulaglutide 1.5 mg (0.5 mL) subcut TU@0900 30 days ezetimibe 10 mg PO DAILY ibuprofen 600 mg PO BID PRN lancing device As directed lisinopril-hydrochlorothiazide 10-12.5 mg 1 tab PO DAILY metformin 500 mg PO DAILY ondansetron 4 mg PO Q6-8H PRN tizanidine 2 mg PO BEDTIME PRN [To [place] [facility] program .?Occupational Therapy evaluation for functional community mobility. NS] Tobacco use date assessed: 02/16/24 Dental Screening Dental Screen Date: 11/17/23 HPI 3 month follow up DM, Lipids, HTN HPI Details 58-year-old lady with diabetes mellitus hypertension hyperlipidemia with history of CVA with residual left-sided weakness, here today for follow-up. She states that she has not been taking her Zetia and atorvastatin regularly, which latest fasting labs showing an increase in her LDL cholesterol on latest blood work. Diabetes mellitus it appears to be in better control as compared to last check but hemoglobin A1c now at 6.4%. Blood pressure stable controlled on present treatment. She is also here requesting another application form to way find hers completed. 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 stroke [facility] Medical History Diabetes mellitus with retinopathy History of CVA with residual deficit Atherosclerotic cardiovascular disease History of stroke Intracranial atherosclerosis Normocytic normochromic anemia Cancer History of degenerative joint disease GERD (gastroesophageal reflux disease) Sleep apnea Asthma Depression Vitamin D deficiency Tubular adenoma of colon Essential hypertension Dyslipidemia Type 2 diabetes mellitus without complication, without long-term current use of insulin Surgical History Hx of hand surgery History of carpal tunnel release Hx of endoscopy Hx of colonoscopy Hx of cholecystectomy History of total abdominal hysterectomy Family History Father Cancer Mother Cancer Myocardial infarction Family/Other Diabetes Social History Household Members: Spouse Housing: Apartment Do you presently have visiting nurse or other home services: Yes Alcohol intake: current Alcohol intake frequency: holidays/special occasions only Patient Tobacco Use Status: Never used Tobacco e-Cigarette/Vaping Use: Never Used Second Hand Smoke Exposure: No Advance Directives Date on File: 01/20/21 service: No Current occupational status: disabled Current occupation: rt handed Cognitive needs: No Hearing needs: No Vision needs: No Questionnaire PHQ-9 Over the last 2 weeks, how often have you been bothered by any of the following problems? Depression Screening Interpretation: Negative Depression Screening Done: Yes Source: Developed by Drs. Manish Eckert, Lola Bernard, Enrique Red and colleagues, with an educational jaime from [employer]. Thrive Questionnaire Date Thrive assessed: 11/17/23 HAVEN-7 AMB Questionnaire HAVEN-7 Date HAVEN - 7 assessed: 11/17/23 Source: Developed by Drs. Manish Eckert, Lola Bernard, Enrique Red and colleagues, with an educational jaime from [employer]. Review of Systems Const Reports no additional complaints and Denies headache(s) Eyes Details: Up-to-date with her diabetes retinopathy screening Denies change in vision ENT Reports as per HPI, Denies dysphagia, Denies vertigo, Denies otalgia, Denies headache(s), Denies hoarseness, Denies mouth lesions, Denies nasal discharge, Denies neck pain, Denies post nasal drip, Denies tinnitus and Denies sore throat Card Denies chest pain, Denies rapid heart rate, Denies palpitations and Denies dyspnea Resp Denies cough and Denies dyspnea GI Denies abdominal pain, Denies melena, Denies change in bowel habits, Denies dysphagia and Denies heartburn Denies hematuria, Denies urinary frequency and Denies dysuria Musc Reports muscle weakness (left arm, unchanged), Denies neck pain, Reports numbness (left arm), Reports stiffness and Reports tingling (left arm) Skin/Breast Denies breast pain, Denies breast mass and Denies rash Neuro Denies vertigo, Denies headache(s), Reports numbness (left arm) and Reports tingling (left arm) Endo Reports cold intolerance (left upper extremity), Denies polydipsia, Denies polyuria and Denies palpitations Rodrigo/Lymph Denies easy bruising Aller/Immun Reports no additional complaints Physical exam (Primary Care) Vital Signs: Last Vital Signs Pulse 70 02/16/24 13:42 BP 112/68 02/16/24 13:42 Pulse Ox 98 02/16/24 13:42 Oxygen Delivery Method Room Air 02/16/24 13:42 BMI result Body Mass Index 30.8 Tobacco/Smoking Status: Tobacco use Status Tobacco use date assessed 02/16/24 02/16/24 13:53 Patient Tobacco Use Status Never used Tobacco 02/16/24 13:41 e-Cigarette/Vaping Use Never Used 02/16/24 13:41 Depression Screening Interpretation: Negative Thrive Assessment: Date of Thrive Assessment Date Thrive assessed 11/17/23 02/16/24 13:41 Const General: comfortable, no acute distress and alert Orientation/consciousness: patient oriented x3 HENMT Head: Yes normocephalic and Yes atraumatic Ears: external ears normal, TM's normal bilaterally and EAC's normal General nose exam: Normal external nose present and No nasal discharge present Face and sinus: Yes Flattened naso-labial fold present (On left, Unchanged from previous visits) and Yes other (Irregularly defined mass on right parotid area, nontender) Mouth: Normal oral and palatal mucosa present, tongue normal (Midline on protrusion), oropharynx normal and moist mucous membranes Eyes General: appearance normal, both eyes and all related structures Neck Neck: Yes full ROM, Yes no lymphadenopathy and Yes supple Resp Effort & Inspection: normal respiratory effort and able to speak in complete sentences Auscultation: clear to auscultation bilaterally Cardio Rate: regular rate Rhythm: regular rhythm Heart sounds: S1 normal heart sound present and S2 normal heart sound present GI Inspection: Yes normal to inspection Palpation (GI): Soft to palpation, nontender and no masses Auscultation: normal bowel sounds Skin General skin exam: no rashes or lesions noted Neuro General: patient oriented x3 Cognition (Neuro): normal cognition Extrem Other: Left arm with contracture deformity Office Procedures Flu Questionnaire Does the patient have a severe egg allergy?: No Does the patient have severe life threatening allergies?: No Does the patient have a fever or illness today?: No Has the patient ever had Guillain-De Lancey Syndrome?: No Has the patient ever had any past reaction to a flu shot?: No Immunizations Fluarix Triv [id number] (PF) 45 mcg (15 mcg x 3)/0.5 mL IM syringe Performing Provider: María Cooper MD Performing Location: [facility] [place] [facility] Administered by: Toribio Black CMA on 02/16/24 13:58 Dose Route Admin Location Dispensed Lot Number Expiration Date [facility] [place] 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 Eligible 02/16/24 Private Results Reviewed Results Reviewed: Name: AjayMarisol Jeni Age/Sex: 58/F : 1965 Unit#: [id number] Attend Dr: María Cooper MD Re01/31/24 Status: DEP REF Location: [facility] Disch: SPEC : [id number] [place] 01/31/24-1356 STATUS: COMP REQ : [id number] RECD: 01/31/24-[address]: María Cooper MD COMP: 01/31/24-1728 ENTERED: 01/31/24-[address] [facility] [address]: ORDERED: Met Prof Fast, AST, ALT, Lipid Panel, Vitamin D 25-OH Test Result Flag Reference Sodium 141 135-145 mmol/L Potassium 4.7 3.3-5.1 mmol/L CL 103 96-108 mmol/L CO2 30 H 22-29 mmol/L Gap 13 12-20 BUN 19 H 9-16 mg/dL Creat 0.77 0.5-1.4 mg/dL EGFR > 60 NOTE: For -[place] individuals, multiply the result by 1.210. Chronic Kidney Disease: Estimated GFR < 60 mL/min/1.73m2 Severe Kidney Disease: Estimated GFR < 15 mL/min/1.73m2 FBS 114 H 60-99 mg/dL A fasting glucose from 100-125 mg/dl is considered impaired (pre-diabetes). CA 9.6 8.4-10.2 mg/dL AST (GOT) 15 5-31 U/L ALT (GPT) 11 0-31 U/L Triglyceride 95 <150 mg/dL Desirable Triglyceride: less than 150 mg/dL Borderline High Triglyceride 150-199 mg/dL High Triglyceride: 200-499 mg/dL Very High Triglyceride: greater than or equal to 5OO mg/dL Cholesterol 216 H <200 mg/dL Desirable Cholesterol: less than 200 mg/dL Borderline High Cholesterol: 200-239 mg/dL High Cholesterol: greater than 239 mg/dL LDL Calculated 139 H <100 mg/dL Desirable LDL: less than 100 mg/dL Near Optimal/Above Optimal LDL: 110-129 mg/dL Borderline High LDL: 130-159 mg/dL High LDL: 160-189 mg/dL Very High LDL: greater than or equal to 190 mg/dL HDL 58 >40 mg/dL Desirable HDL: greater than 40 mg/dL Note: This HDL assay may give artificially low results in patients with liver disease. 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, without long-term current use of insulin E11.3553 Diabetes mellitus type: type 2 Diabetes mellitus radio host insulin use: without radio host use Diabetic retinopathy severity: with proliferative retinopathy Proliferative retinopathy type: stable Laterality: bilateral Dyslipidemia E78.5 Essential hypertension I10 History of CVA with residual deficit I69.30 Osteoarthritis of right shoulder M19.011 Assessment & Plan Assessment & Plan (1) Diabetes mellitus with retinopathy: Code(s): E11.319 - Type 2 diabetes mellitus with unspecified diabetic retinopathy without macular edema Category: Medical Qualifiers: Diabetes mellitus type: type 2 Diabetes mellitus radio host insulin use: without radio host use Diabetic retinopathy severity: with proliferative retinopathy Proliferative retinopathy type: stable Laterality: bilateral Qualified Code(s): E11.3553 - Type 2 diabetes mellitus with stable proliferative diabetic retinopathy, bilateral Plan: Recent lab results reviewed with patient, with sugar and hemoglobin A1c stable and at goal . Continue metformin 500 mg once a day and Trulicity 1.5 mg once a week. continue to check fasting blood sugar at home, maintain log and bring to next appointment for review. Reinforced diabetic diet and regular exercise with patient. Counseled regarding importance of yearly diabetes retinopathy screening. Patient advised to inspect feet daily, for any signs of injury, callus or infection. Compliance with diet and regular exercise again stressed. Blood pressure goal is less than 130/80, goal LDL is less than 100 and goal hemoglobin A1c is less than 7% follow-up appointment made in-3--months, after fasting labs done . Influenza vaccine given today (2) Dyslipidemia: Code(s): E78.5 - Hyperlipidemia, unspecified Category: Medical Plan: Recent fasting lipids showed LDL cholesterol not at goal of less than 100 mg/dL due to patient's noncompliance with taking medications in a regular basis. Importance of taking medicine as directed on a daily basis, adherence to healthy eating habits and staying active is very important in lower cholesterol levels goal LDL is less than 100 mg/dL. Will continue on current dose of atorvastatin 80 mg daily and ezetimibe 10 mg once a day repeat another fasting lipid panel in 3 months (3) Essential hypertension: Code(s): I10 - Essential (primary) hypertension Category: Medical Plan: Blood pressure at goal of less than 130/80. Continue with current medication. Reinforced importance of following a low sodium diet, getting regular exercise, and lowering stress levels. 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 Orders: Orders Hemoglobin A1c 05/13/24 E11.3553 - Type 2 diabetes mellitus with stable proliferative diabetic retinopathy, bilateral, E78.5 - Hyperlipidemia, unspecified, I10 - Essential (primary) hypertension, I69.30 - Unspecified sequelae of cerebral infarction Lipid Panel 05/13/24 E11.3553 - Type 2 diabetes mellitus with stable proliferative diabetic retinopathy, bilateral, E78.5 - Hyperlipidemia, unspecified, I10 - Essential (primary) hypertension, I69.30 - Unspecified sequelae of cerebral infarction Aspartate Amino Transferase 05/13/24 E11.3553 - Type 2 diabetes mellitus with stable proliferative diabetic retinopathy, bilateral, E78.5 - Hyperlipidemia, unspecified, I10 - Essential (primary) hypertension, I69.30 - Unspecified sequelae of cerebral infarction Basic Metabolic Panel Fasting 05/13/24 E11.3553 - Type 2 diabetes mellitus with stable proliferative diabetic retinopathy, bilateral, E78.5 - Hyperlipidemia, unspecified, I10 - Essential (primary) hypertension, I69.30 - Unspecified sequelae of cerebral infarction Influenza [id number] Immunization 02/16/24 Z23 - Encounter for immunization Vitamin D 25-OH Total 05/13/24 E11.3553 - Type 2 diabetes mellitus with stable proliferative diabetic retinopathy, bilateral, E78.5 - Hyperlipidemia, unspecified, I10 - Essential (primary) hypertension, I69.30 - Unspecified sequelae of cerebral infarction Alanine Aminotransferase 05/13/24 E11.3553 - Type 2 diabetes mellitus with stable proliferative diabetic retinopathy, bilateral, E78.5 - Hyperlipidemia, unspecified, I10 - Essential (primary) hypertension, I69.30 - Unspecified sequelae of cerebral infarction
[2024-02-16 13:42] VITALS: BP 112/68; PULSE 70; O2SAT 98; BMI 30.8
== END 2024-02-16 14:30 | disposition home or self-care (01) ==
PROVIDERS: PCP Internal Medicine; Visit Provider Internal Medicine
DX: E11.3553 Type 2 diabetes mellitus with stable proliferative diabetic retinopathy, bilateral (principal); E78.5 Hyperlipidemia, unspecified; I10 Essential (primary) hypertension; I69.30 Unspecified sequelae of cerebral infarction; M19.011 Primary osteoarthritis, right shoulder

== ENCOUNTER → 2024-02-16 13:15 | Outpatient (BNVA) | payer OTHER, SELFPAY | PROVIDERS: PCP Internal Medicine; Visit Provider Internal Medicine | DX: Z23 Encounter for immunization (principal); E11.3553 Type 2 diabetes mellitus with stable proliferative diabetic retinopathy, bilateral; E78.5 Hyperlipidemia, unspecified; I10 Essential (primary) hypertension; I69.30 Unspecified sequelae of cerebral infarction; M19.011 Primary osteoarthritis, right shoulder | CPT/HCPCS: 90471; 90656; 99212 ==

== ENCOUNTER 2024-03-15 14:29 | Emergency (ER) | payer OTHER, SELFPAY ==
[2024-03-15] VITALS (8 sets, daily range): BP systolic 138–188; BP diastolic 66–90; PULSE 69–78; RESP 16–18; TEMP 36.2–36.7; O2SAT 96–100; BMI 30.2
--- NOTE | ~2024-03-15 | CT_ITS ---
EXAMINATION: CT ANGIOGRAM HEAD CT ANGIOGRAM NECK CLINICAL INFORMATION: Dizziness. COMPARISON: CT neck from 10/15/2023. CT head from 10/15/2023. Brain MRI from 12/22/2021. CTA head and neck from 12/22/2021. TECHNIQUE: Initial noncontrast manager local imaging of the head and neck was performed. Noncontrast head CT was also performed. Test bolus sequences followed by intravenous administration 70 mL of Omnipaque 350. Helical imaging was performed in the axial plane from the aortic arch to the skull vertex. Delayed postcontrast imaging of the head was also performed. The data was processed at the histotechnologist's workstation for generation of MIP sequences. Angled MIPs and volume rendered reformatted images were also generated at an offline 3D workstation. Stenoses are assessed in accordance with NASCET criteria unless otherwise indicated. This CT examination was performed using dose optimization techniques as appropriate, variously including the following: *Automated exposure control. *Adjustment of mA and/or kV according to patient size (this includes techniques or standardized protocols for targeted exams where dose is matched to indication/reason for exam; i.e. extremities or head). *Use of iterative reconstruction technique. DLP: 1906 mGy-cm FINDINGS: CT Head: There is chronic encephalomalacia within the left superior frontal gyrus with associated volume loss. Chronic lacunar infarcts of the bilateral lentiform nuclei, right thalamus, and katelin. No new loss of arteaga-white matter differentiation. No evidence of acute intracranial hemorrhage. Scattered and partially confluent hypoattenuation in the periventricular and deep white matter are consistent with moderate microangiopathy. Proportional prominence of the ventricles and sulcal spaces without evidence of obstructive hydrocephalus. No abnormal mass effect or midline shift. No extra-axial fluid collections. No pathologic intra-axial enhancement or regional oligemia. No acute soft tissue or osseous abnormalities. Mild mucosal thickening of the paranasal sinuses. The mastoid air cells and middle ear cavities are clear. Bilateral lens extractions. CT Neck: Redemonstrated enhancing mass lesion within the superficial lobe of the right parotid gland, measuring 2.5 x 1.8 x 3.2 (previously 3 x 2.4 x 3.8 cm on 10/15/2023 and 2.3 x 1.8 x 3.1 cm in 2021) cm. A cystic component of this lesion has partially collapsed compared to prior exam. The thyroid gland and remaining cervical soft tissues are within normal limits. Straightening of the normal cervical lordosis. Moderate degenerative arthropathy of the atlantodental articulation. Moderate degenerative disc disease from C3-T1. Mild degenerative disc disease at all additional levels. Facet and uncovertebral joint arthropathy leads to osseous encroachment on the neural foramina from C5-T1. Exuberant bridging anterior osteophyte is as from C2-C7. CT Upper Chest: The visualized lung apices and upper mediastinum are within normal limits. Neck CTA: Aortic Arch: Normal contour and caliber with moderate calcific atherosclerotic disease. Classic 3 vessel branching pattern of the aortic arch. Great Vessel Origins: No significant stenosis of the branch origins. Right Common Carotid Artery: No focal stenosis or occlusion. Cervical Right Internal Carotid Artery: Calcific atherosclerotic disease of the carotid bulb and proximal internal carotid artery causing 60% stenosis. Left Common Carotid Artery: No focal stenosis or occlusion. Cervical Left Internal Carotid Artery: Calcific atherosclerotic disease of the carotid bulb and proximal internal carotid artery causing less than 50% stenosis. Cervical Right Vertebral Artery: Mildly dominant. No focal stenosis or occlusion. Cervical Left Vertebral Artery: No focal stenosis or occlusion. Brain CTA: Intracranial Internal Carotid Arteries: Calcific atherosclerotic disease of the intracranial internal carotid arteries without occlusion or flow-limiting stenosis. Right Anterior Cerebral Artery: Normal A1 segment. Chronic moderate stenosis of the A2 segment. Normal opacification of the distal JOHN segments. Left Anterior Cerebral Artery: The A1 segment is diminutive. Normal opacification of the distal JOHN segments. Anterior Communicating Artery: Azygous continuation. Otherwise, normal. Right Middle Cerebral Artery: Normal M1 segment of the MCA without focal stenosis or occlusion. Normal arborization of the distal segments. Left Middle Cerebral Artery: Normal M1 segment of the MCA without focal stenosis or occlusion. Normal arborization of the distal segments. Right Vertebral Artery: Normal V4 segment. Normal opacification of the proximal segments of the posterior inferior cerebellar artery. Left Vertebral Artery: Normal V4 segment. The posterior inferior cerebellar artery is not well opacified; however, there is no CT evidence of acute occlusion. Basilar Artery: Normal without focal stenosis or occlusion. Normal appearance of the proximal superior cerebellar arteries. Right Posterior Cerebral Artery: Normal P1 segment. Normal opacification of the distal DISTRICT SALES REPRESENTATIVE segments. Left Posterior Cerebral Artery: The P1 segment is diminutive. origin of the [employer] SALES REPRESENTATIVE with robust opacification of the posterior communicating artery. Normal opacification of the distal [employer] SALES REPRESENTATIVE segments. Normal opacification of the superior sagittal, straight, transverse, and sigmoid sinuses. CT/CT angio head neck IMPRESSION: 1. No evidence of acute intracranial hemorrhage or edematous territorial infarction. Chronic encephalomalacia of the left superior frontal gyrus. Chronic lacunar infarcts of the deep nuclei and brainstem. Moderate underlying microangiopathy and generalized cerebral volume loss. 2. CTA of the head and neck without proximal occlusion. Atherosclerotic disease causes 60% stenosis of the origin of the right ICA. No additional flow-limiting stenoses. 3. 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 Electronically signed by: Nasim Martinez DO 03/15/2024 06:48 PM [facility]
--- NOTE | 2024-03-15 14:59 | ECG_ITS ---
Test Reason : DIZZINESS Blood Pressure : / mmHG Vent. Rate : 066 BPM Atrial Rate : 066 BPM P-R Int : 166 ms QRS Dur : 084 ms QT Int : 406 ms P-R-T Axes : 032 045 028 degrees QTc Int : 425 ms Normal sinus rhythm Normal ECG When compared with ECG of 15-OCT-2023 17:21, Nonspecific T wave abnormality now evident in Anterior leads Referred By: Clemencia Valentine Electronically Signed By:Poncho Nieto
[2024-03-15 16:01] LABS: MANUAL DIFF FLAG NO
[2024-03-15 16:03] LABS: Basophils Percent Auto 0.4 % (0-2); Eosinophils Absolute Auto 0.1 X10*3/uL (0.0-0.4); Eosinophils Percent Auto 0.8 % (0-4); Hematocrit 37.5 % (37.0-47.0); Hemoglobin 12.4 g/dl (12.0-16.0); Imm Gran Abs Auto 0.03 X10*3/uL (0.00-0.03); Imm Gran Pct Auto 0.4 % (0.0-0.4); Lymphocytes Absolute Auto 1.5 X10*3/uL (1.2-4.9); Lymphocytes Percent Auto 19.3 % (20-40); Mean Corpuscular HGB Conc 33.1 g/dl (31.0-35.0); Mean Corpuscular Hemoglobin 27.7 pg (27.0-33.0); Mean Corpuscular Volume 83.7 fL (80.0-98.0); Mean Platelet Volume 10.8 fL (9.4-12.3); Monocytes Absolute Auto 0.5 X10*3/uL (0.1-1.2); Monocytes Percent Auto 6.1 % (2-11); Neutrophils Absolute Auto 5.7 x10*3/uL (2.0-8.3); Platelet Count 194 X10*3/uL (160-400); Red Blood Count 4.48 X10*6/uL (4.20-5.50); Red Cell Distribution Width 13.5 % (11.0-16.0); White Blood Count 7.8 X10*3/uL (4.8-10.8)
[2024-03-15 16:16] LABS: Alanine Aminotransferase 14 U/L (0-31); Albumin Level 3.8 g/dL (3.5-5.0); Alkaline Phosphatase 86 U/L (39-117); Anion Gap 9 (12-20); Aspartate Amino Transferase 19 U/L (5-31); Bilirubin Total 0.3 mg/dL (0.0-1.0); Blood Urea Nitrogen 18 mg/dL (9-16); Calcium 9.7 mg/dL (8.4-10.2); Carbon Dioxide 32 mmol/L (22-29); Chloride 104 mmol/L (96-108); Creatinine Clr Calc Pharmacy 69.9; Estimated Glomerular Filt Rate > 60; Glucose Random 108 mg/dL (60-115); Sodium 141 mmol/L (135-145); Total Protein 7.9 g/dL (6.5-8.0)
[2024-03-15 16:23] LABS: Troponin-I High Sensitivity 2.9 ng/L (<3.5-17.0)
[2024-03-15 16:46] LABS: Influenza A PCR NEGATIVE (Negative); Influenza B PCR NEGATIVE (Negative); Resp Syncy Virus RNA Qual PCR NEGATIVE (Negative); SARS COV2 PCR INHOUSE NEGATIVE (Negative)
--- NOTE | 2024-03-15 17:32 | ED.GENADULT ---
HPI - General Adult General Chief complaint: Dizziness Stated complaint: Dizziness Time Seen by Provider: 03/15/24 17:12 Source: patient History of Present Illness ED Provider: Joann CONTRERAS narrative: 58yo female with pmhx diabetes mellitus, hypertension, hyperlipidemia with history of CVA with residual left-sided weakness presenting for lightheadedness. Pt states her symptoms began this morning around 9 am after she had showered. She had bent over and when she stood up straight she became lightheaded. This continued throughout the day and was mostly positional and while walking. When she is lying down she is asymptomatic. She denies headache, neck pain, chest pain, sob, abd pain, n/v/d, urinary sxs. 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 Related Data Previous Rx's ?Medication ?Instructions ?Recorded ondansetron 4 mg disintegrating 4 mg PO Q6-8H PRN nausea and 02/16/22 tablet vomiting #7 tabs To [facility] program #1 ea 04/06/23 blood sugar diagnostic (FreeStyle #100 ea 04/17/23 Lite Strips) blood-glucose meter (FreeStyle #1 ea 04/18/23 Lite Meter kit) lancing device #1 ea 04/18/23 tizanidine 2 mg capsule 2 mg PO BEDTIME PRN muscle 05/25/23 spasticity #10 caps cholecalciferol (vitamin D3) 1,250 1,250 mcg PO QWEEK 90 days #13 caps 11/10/23 mcg (50,000 unit) capsule blood sugar diagnostic (FreeStyle #100 ea 11/17/23 Lite Strips) ibuprofen 600 mg tablet 600 mg PO BID PRN for pain #40 tabs 01/07/24 amlodipine 2.5 mg tablet 2.5 mg PO DAILY #90 tabs 01/13/24 atorvastatin 80 mg tablet 80 mg PO BEDTIME 3 months #90 tabs 01/13/24 cholecalciferol (vitamin D3) 1,250 1,250 mcg PO QWEEK 3 months #13 01/13/24 mcg (50,000 unit) capsule caps ezetimibe 10 mg tablet 10 mg PO DAILY #90 tabs 01/13/24 metformin 500 mg tablet 500 mg PO DAILY #90 tabs 01/13/24 lisinopril 10 1 tab PO DAILY #90 tabs 01/19/24 mg-hydrochlorothiazide 12.5 mg tablet dulaglutide 1.5 mg/0.5 mL 1.5 mg (0.5 mL) subcut TU@0900 30 01/31/24 subcutaneous pen injector days #2 mL cephalexin 500 mg capsule 500 mg PO QID 6 days #24 caps 03/15/24 Allergies Allergy/AdvReac Type Severity Reaction Status Date / Time No Known Allergies Allergy Verified 03/15/24 14:44 [No Known Allergies*] Review of Systems Review of Systems: patient endorses lightheadedness Yes all other systems are reviewed and are negative [facility] Past Medical History Attestation statement: The following information was validated with the patient. [facility] Narrative: CVA, hypertension, dyslipidemia Source: old records reviewed Medical History Diabetes mellitus with retinopathy History of CVA with residual deficit Atherosclerotic cardiovascular disease History of stroke Intracranial atherosclerosis Normocytic normochromic anemia Cancer History of degenerative joint disease GERD (gastroesophageal reflux disease) Sleep apnea Asthma Depression Vitamin D deficiency Tubular adenoma of colon Essential hypertension Dyslipidemia Type 2 diabetes mellitus without complication, without long-term current use of insulin Surgical History Hx of hand surgery History of carpal tunnel release Hx of endoscopy Hx of colonoscopy Hx of cholecystectomy History of total abdominal hysterectomy Family History Family History Father Cancer Mother Cancer Myocardial infarction Family/Other Diabetes Social History Social History Household Members: Spouse Housing: Apartment Do you presently have visiting nurse or other home services: Yes Alcohol intake: never Patient Tobacco Use Status: Never used Tobacco Smoked in Last 30 Days: No e-Cigarette/Vaping Use: Never Used Second Hand Smoke Exposure: No Use of substances other than those prescribed or required for medical reasons: No Advance Directives: Yes Advance Directives on File: Yes Advance Directives Date on File: 01/20/21 Patient : No service: No Current occupational status: disabled Current occupation: rt handed Cognitive needs: No Hearing needs: No Vision needs: No Physical Exam ED Vital Signs: Vital Signs - 24 hr 03/15/24 14:42 03/15/24 19:25 03/15/24 20:00 Temperature 97.5 F 97.1 F Pulse Rate 73 69 69 Respiratory Rate 16 16 Blood Pressure 138/74 188/90 H 177/76 H Pulse Oximetry 97 100 Oxygen Delivery Method Room Air Room Air 03/15/24 20:04 03/15/24 20:08 03/15/24 21:44 Temperature 98.0 F Pulse Rate 72 78 72 Respiratory Rate 18 Blood Pressure 161/83 H 164/88 H 167/66 H Pulse Oximetry 97 Oxygen Delivery Method Room Air 03/15/24 21:45 Temperature Pulse Rate Respiratory Rate Blood Pressure 167/66 H Pulse Oximetry Oxygen Delivery Method BMI result Body Mass Index 30.2 Well-appearing female in no acute distress Alert and oriented x4; baseline left-sided weakness and left-sided facial droop; patient denies any changes in strength and sensation; no new focal neurologic deficits appreciated Lungs clear to auscultation bilaterally; normal S1-S2 regular rate and rhythm Abdomen is soft nontender nondistended Medications Administered Discontinued Medications Generic Name Dose Route Start Last Admin Trade Name Freq PRN Reason Stop Dose Admin Ceftriaxone Sodium 1 gm 03/15/24 22:02 03/15/24 22:23 Ceftriaxone Sodium 1 Gm Vial IVPUSH 03/15/24 22:03 1 gm ONCE ONE Administration Iohexol 100 ml 03/15/24 17:53 03/15/24 17:53 Iohexol 350 Mg/Ml 100 Ml Infus..Btl IV 03/15/24 17:54 70 ml ONCE ONE Administration Lisinopril 10 mg 03/15/24 21:00 03/15/24 21:45 Lisinopril 10 Mg Tablet PO 03/15/24 21:01 10 mg ONCE ONE Administration Protocol Medical Decision Making Medical Decision Making [facility] Narrative: This is a 58-year-old female presenting for episodic lightheadedness. I am concerned for the following; peripheral vertigo such as BPPV, Meniere's disease, labyrinthitis, vestibular neuritis. I am also considering electrolyte/metabolic disturbance and infection I considered CVA/stroke however this seems less likely given patient has no new neurologic findings. I also considered TIA however symptoms seem inconsistent with this diagnosis Labs and imaging studies ordered Labs notable for stable H&H, no white count, electrolyte within normal limits, normal creatinine, UA positive for nitrites with 11-20 WBCs; 0-2 epithelial cells noted - concerns for UTI Ceftriaxone ordered and Keflex prescriptions sent to patient's pharmacy Patient ambulating with steady gait and normal orthostatics I considered admission however I do not feel that patient will benefit greatly from admission I discussed findings with the patient and she is comfortable with being discharged. I gave her instructions to follow up with her outpatient providers and gave her return precautions Lab Data 03/15/24 15:55 03/15/24 15:55 Labs: Lab Results 03/15/24 03/15/24 03/15/24 Range/Units 15:55 18:46 20:17 WBC 7.8 (4.8-10.8) X10*3/uL RBC 4.48 (4.20-5.50) X10*6/uL Hgb 12.4 (12.0-16.0) g/dl Hct 37.5 (37.0-47.0) % MCV 83.7 (80.0-98.0) fL MCH 27.7 (27.0-33.0) pg MCHC 33.1 (31.0-35.0) g/dl RDW 13.5 (11.0-16.0) % Plt Count 194 (160-400) X10*3/uL MPV 10.8 (9.4-12.3) fL Immature Gran % (Auto) 0.4 (0.0-0.4) % Neut % (Auto) 73.0 (45-73) % Lymph % (Auto) 19.3 L (20-40) % [place] % (Auto) 6.1 (2-11) % Eos % (Auto) 0.8 (0-4) % Baso % (Auto) 0.4 (0-2) % Lymph # (Auto) 1.5 (1.2-4.9) X10*3/uL [place] # (Auto) 0.5 (0.1-1.2) X10*3/uL Eos # (Auto) 0.1 (0.0-0.4) X10*3/uL Baso # (Auto) 0.0 (0.0-0.2) X10*3/uL Abs Immat Gran (auto) 0.03 (0.00-0.03) X10*3/uL Absolute Neuts (auto) 5.7 (2.0-8.3) x10*3/uL Absolute Nucleated RBC 0.000 (0.0-0.012) X10*3/uL Nucleated RBC % (auto) 0.0 (0.0-0.2) /100WBC Sodium 141 (135-145) mmol/L Potassium 4.0 (3.3-5.1) mmol/L Chloride 104 (96-108) mmol/L Carbon Dioxide 32 H (22-29) mmol/L Anion Gap 9 L (12-20) BUN 18 H (9-16) mg/dL Creatinine 0.78 (0.5-1.4) mg/dL Estim Creat Clear Calc 69.9 Estimated GFR > 60 POC Glucose 97 (60-115) mg/dL Random Glucose 108 (60-115) mg/dL Calcium 9.7 (8.4-10.2) mg/dL Magnesium 2.0 (1.6-2.6) mg/dL Total Bilirubin 0.3 (0.0-1.0) mg/dL AST 19 (5-31) U/L ALT 14 (0-31) U/L Alkaline Phosphatase 86 (39-117) U/L Troponin I High Sens 2.9 (<3.5-17.0) ng/L Total Protein 7.9 (6.5-8.0) g/dL Albumin 3.8 (3.5-5.0) g/dL Urine Color Yellow Urine Appearance Cloudy Urine pH 7.0 (5.0-9.0) Ur Specific Breeding >= 1.030 H (1.005-1.025) Urine Protein Trace (Neg-Trace) mg/dL Urine Glucose (UA) Negative (Negative) mg/dL Urine Ketones Negative (Negative) mg/dL Urine Blood Negative (Negative) Urine Nitrite Positive H (Negative) Ur Leukocyte Esterase Trace H (Negative) Urine RBC 0-2 (0-2) /HPF Urine WBC 11-20 H (0-5) /HPF Ur Squamous Epith Cells 0-2 (0-2) /HPF Urine Bacteria 4+ (None Seen) Hyaline Casts 0-2 (0-2) /LPF Influenza Type A (PCR) NEGATIVE (Negative) Influenza Type B (PCR) NEGATIVE (Negative) RSV RNA Qual (PCR) NEGATIVE (Negative) SARS-CoV-2 RNA (RT-PCR) NEGATIVE (Negative) 03/15/24 Range/Units 21:56 WBC (4.8-10.8) X10*3/uL RBC (4.20-5.50) X10*6/uL Hgb (12.0-16.0) g/dl Hct (37.0-47.0) % MCV (80.0-98.0) fL MCH (27.0-33.0) pg MCHC (31.0-35.0) g/dl RDW (11.0-16.0) % Plt Count (160-400) X10*3/uL MPV (9.4-12.3) fL Immature Gran % (Auto) (0.0-0.4) % Neut % (Auto) (45-73) % Lymph % (Auto) (20-40) % [place] % (Auto) (2-11) % Eos % (Auto) (0-4) % Baso % (Auto) (0-2) % Lymph # (Auto) (1.2-4.9) X10*3/uL [place] # (Auto) (0.1-1.2) X10*3/uL Eos # (Auto) (0.0-0.4) X10*3/uL Baso # (Auto) (0.0-0.2) X10*3/uL Abs Immat Gran (auto) (0.00-0.03) X10*3/uL Absolute Neuts (auto) (2.0-8.3) x10*3/uL Absolute Nucleated RBC (0.0-0.012) X10*3/uL Nucleated RBC % (auto) (0.0-0.2) /100WBC Sodium (135-145) mmol/L Potassium (3.3-5.1) mmol/L Chloride (96-108) mmol/L Carbon Dioxide (22-29) mmol/L Anion Gap (12-20) BUN (9-16) mg/dL Creatinine (0.5-1.4) mg/dL Estim Creat Clear Calc Estimated GFR POC Glucose 130 H (60-115) mg/dL Random Glucose (60-115) mg/dL Calcium (8.4-10.2) mg/dL Magnesium (1.6-2.6) mg/dL Total Bilirubin (0.0-1.0) mg/dL AST (5-31) U/L ALT (0-31) U/L Alkaline Phosphatase (39-117) U/L Troponin I High Sens (<3.5-17.0) ng/L Total Protein (6.5-8.0) g/dL Albumin (3.5-5.0) g/dL Urine Color Urine Appearance Urine pH (5.0-9.0) Ur Specific Breeding (1.005-1.025) Urine Protein (Neg-Trace) mg/dL Urine Glucose (UA) (Negative) mg/dL Urine Ketones (Negative) mg/dL Urine Blood (Negative) Urine Nitrite (Negative) Ur Leukocyte Esterase (Negative) Urine RBC (0-2) /HPF Urine WBC (0-5) /HPF Ur Squamous Epith Cells (0-2) /HPF Urine Bacteria (None Seen) Hyaline Casts (0-2) /LPF Influenza Type A (PCR) (Negative) Influenza Type B (PCR) (Negative) RSV RNA Qual (PCR) (Negative) SARS-CoV-2 RNA (RT-PCR) (Negative) Discharge Plan Discharge Clinical Impression: Episodic lightheadedness UTI (urinary tract infection) Qualifiers: Urinary tract infection type: site unspecified Hematuria presence: without hematuria Qualified Code(s): N39.0 - Urinary tract infection, site not specified Patient Disposition: Home, Self-Care Additional Instructions: 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 (DME) FreeStyle Lite Strips Strip See Rx Instructions .ROUTE .MEDSUPPLY Qty: 100 6RF Rx Instructions: test blood sugar twice a day (DME) blood-glucose meter [FreeStyle Lite Meter] Kit See Rx Instructions .ROUTE .MEDSUPPLY Qty: 1 0RF Rx Instructions: Three times a day (DME) lancing device Misc See Rx Instructions .ROUTE .MEDSUPPLY Qty: 1 0RF Rx Instructions: As directed cholecalciferol (vitamin D3) 1,250 mcg (50,000 unit) capsule 1,250 mcg PO QWEEK 90 Days Qty: 13 1RF ibuprofen 600 mg tablet 600 mg PO BID PRN (Reason: for pain) Qty: 40 0RF amlodipine 2.5 mg tablet 2.5 mg PO DAILY Qty: 90 1RF Protocol: Hold for SBP< HOLD for SBP < : 90 atorvastatin 80 mg tablet 80 mg PO BEDTIME 90 Days Qty: 90 1RF cholecalciferol (vitamin D3) 1,250 mcg (50,000 unit) capsule 1,250 mcg PO QWEEK 90 Days Qty: 13 0RF ezetimibe 10 mg tablet 10 mg PO DAILY Qty: 90 1RF Rx Instructions: NEED SCHEDULED APPOINTMENT FOR FUTURE REFILLS metformin 500 mg tablet 500 mg PO DAILY Qty: 90 1RF lisinopril-hydrochlorothiazide 10-12.5 mg tablet 1 tab PO DAILY Qty: 90 1RF ondansetron 4 mg tablet,disintegrating 4 mg PO Q6-8H PRN (Reason: nausea and vomiting) Qty: 7 0RF tizanidine 2 mg capsule 2 mg PO BEDTIME PRN (Reason: muscle spasticity) Qty: 10 0RF (DME) FreeStyle Lite Strips Strip See Rx Instructions .Route Qty: 100 5RF Rx Instructions: Check fasting blood sugar twice a day before meals dulaglutide 1.5 mg/0.5 mL pen injector 1.5 mg subcut TU@0900 30 Days Qty: 2 5RF Print Language: Macedonian
[2024-03-15] MEDS: iohexoL 350 MG/ML 100 ML INFUS..BTL IV (17:53)
--- NOTE | 2024-03-15 18:00 | PC.NURSE ---
patient ambulated with this RN to the bathroom, patient is 1 assist due to dizziness
[2024-03-15 18:50] LABS: Glucose, Whole Blood 97 mg/dL (60-115)
--- NOTE | 2024-03-15 19:12 | PC.NURSE ---
this rn received report from Nancy leung
--- NOTE | 2024-03-15 19:53 | PC.NURSE ---
pt states she is only dizzy with walking. pt is alert and oriented and facial droop is at baseline. plan is to othostatic bp and collect urine.
[2024-03-15 20:23] LABS: Appearance Urine Cloudy; Color Urine Yellow; Glucose Urine UA Negative (Negative); Leukocyte Esterase Urine Trace (Negative); Nitrite Urine Positive (Negative); Specific Gravity - Urine >= 1.030 (1.005-1.025); UMIC TRIGGER UACC YES; Urine Blood Negative (Negative); Urine Ketones Negative (Negative); Urine Protein Trace mg/dL (Neg-Trace)
[2024-03-15 20:28] LABS: Bacteria Urine 4+ (None Seen); Hyaline Casts Urine 0-2 /LPF (0-2); RBC Urine 0-2 /HPF (0-2); Squamous Epithelial Cell Urine 0-2 /HPF (0-2); UACC Culture Trigger YES
[2024-03-15] MEDS: lisinopriL 10 MG TABLET PO (21:45)
--- NOTE | 2024-03-15 21:50 | PC.NURSE ---
patient ambulates with steady gait 1 standby assist to bathroom. Patient denies any discomfort or complaints while ambulating.
[2024-03-15 22:00] LABS: Glucose, Whole Blood 130 mg/dL (60-115)
[2024-03-15] MEDS: cefTRIAXone sodium 1 GM VIAL IVPUSH (22:23)
[2024-03-15 23:05] LABS: Troponin-I High Sensitivity < 2.7 ng/L (<3.5-17.0)
[2024-03-16] VITALS: BP 164/83; PULSE 70; RESP 16; TEMP 36.8; O2SAT 98
--- NOTE | 2024-03-16 00:01 | MHC.EDTECH ---
This pct assumed care of Patient at 2315 ,vitals taken ,Patient waiting for discharged Papers .
[2024-03-16 00:06] VITALS: BP 164/83; PULSE 70; RESP 16; TEMP 36.8; O2SAT 98
== END 2024-03-16 00:07 | disposition home or self-care (01) ==
PROVIDERS: Physician Assistant Medical; Emergency Provider Student in an Organized Health Care Education/Training Program; PCP Internal Medicine
DX: N39.0 Urinary tract infection, site not specified (principal); R42 Dizziness and giddiness; Z79.899 Other long term (current) drug therapy; Z03.818 Encounter for observation for suspected exposure to other biological agents ruled out; Z86.73 Personal history of transient ischemic attack (TIA), and cerebral infarction without residual deficits
CPT/HCPCS: 0241U; 36415; 70496; 70498; 80053; 81001; 82947; 83735; 84484; 85025; 87086; 87088; 87186; 93005; 96374; 99284; 99285; J0696; Q9967

== ENCOUNTER → 2024-03-15 14:59 | Outpatient (BNV) | payer OTHER, SELFPAY | PROVIDERS: Emergency Provider Student in an Organized Health Care Education/Training Program; PCP Internal Medicine; Visit Provider Internal Medicine Cardiovascular Disease | DX: R42 Dizziness and giddiness (principal) | CPT/HCPCS: 93010 ==

== ENCOUNTER 2024-05-22 11:03 | Outpatient (REF) | payer OTHER, SELFPAY ==
[2024-05-22 17:09] LABS: Alanine Aminotransferase 10 U/L (0-31); Anion Gap 11 (12-20); Aspartate Amino Transferase 24 U/L (5-31); Blood Urea Nitrogen 29 mg/dL (9-16); Calcium 9.4 mg/dL (8.4-10.2); Carbon Dioxide 27 mmol/L (22-29); Chloride 107 mmol/L (96-108); Cholesterol 208 mg/dL (<200); Estimated Glomerular Filt Rate > 60; Glucose Fasting 92 mg/dL (60-99); HDL Cholesterol 52 mg/dL (>40); LDL Cholesterol Calculated 134 mg/dL (<100); Potassium 4.6 mmol/L (3.3-5.1); Sodium 140 mmol/L (135-145); Triglycerides 110 mg/dL (<150)
[2024-05-22 17:24] LABS: Vitamin D 25-OH Total 28.8 ng/mL (>30)
[2024-05-23 06:30] LABS: Estimated Average Glucose 140 mg/dL; Hemoglobin A1C 150.3978 umol/L; Hemoglobin A1c % 6.5 % (<6.0); Total Hemoglobin (HGBA1C) 3196.1919 umol/L
== END 2024-05-22 11:04 | disposition home or self-care (01) ==
LOC: HO.HMGCLDS 11:03
PROVIDERS: PCP Internal Medicine; Visit Provider Internal Medicine
DX: E11.3553 Type 2 diabetes mellitus with stable proliferative diabetic retinopathy, bilateral (principal); Z23 Encounter for immunization; E78.5 Hyperlipidemia, unspecified; I10 Essential (primary) hypertension; I69.30 Unspecified sequelae of cerebral infarction; E55.9 Vitamin D deficiency, unspecified
CPT/HCPCS: 36415; 80048; 80061; 82306; 83036; 84450; 84460; 99212

== ENCOUNTER 2024-05-22 11:03 | Outpatient (AMB) | payer OTHER, SELFPAY ==
--- NOTE | 2024-05-22 11:39 | A.OFFPC_ITS ---
Vital Signs 05/22/24 11:46 Height 5 ft Weight 161 lb BMI 31.4 BP 140/76 H Blood Pressure Location Rt brachial Position Sitting Pulse 77 Pulse Source Pulse Oximeter Pulse Oximetry (%) 98 Oxygen Delivery Method Room Air Comment has not taken BP med this am Intake Visit Reasons: 3 month follow up Allergies No Known Allergies [No Known Allergies*] Allergy (Verified 05/23/24 00:54) Medication List - Last Reconciled 05/23/24 by María Cooper MD [Adult pull-ups Use As directed NS] amlodipine 2.5 mg See Protocol PO DAILY atorvastatin 80 mg PO BEDTIME 3 months blood sugar diagnostic (FreeStyle Lite Strips) test blood sugar twice a day blood sugar diagnostic (FreeStyle Lite Strips) Check fasting blood sugar twice a day before meals blood-glucose meter (FreeStyle Lite Meter kit) Three times a day cholecalciferol (vitamin D3) 1,250 mcg PO QWEEK 3 months [diaphers As directed NS] dulaglutide 1.5 mg (0.5 mL) subcut TU@0900 30 days ezetimibe 10 mg PO DAILY [Hand-held shower Use As directed NS] ibuprofen 600 mg PO BID PRN lancing device As directed lisinopril-hydrochlorothiazide 10-12.5 mg 1 tab PO DAILY metformin 500 mg PO DAILY miscellaneous medical supply Use As directed NS [Raised toilet seat As directed NS] [Re-usable bed pads Use As directed NS] tizanidine 2 mg PO BEDTIME PRN [To [place] [facility] program .?Occupational Therapy evaluation for functional community mobility. NS] Tobacco use date assessed: 05/22/24 Dental Screening Dental Screen Date: 05/22/24 Did you have a dental visit in the last 12 months?: Yes Did you have a dental problem in the last 6 months where you did not have access to dental care?: No Was dental information given to patient?: Patient has dentist HPI 3 month follow up HPI Details - The patient is a 59-year-old female pr esenting with concerns regarding visual problems and diabetes management. - Diagnosed with non-proliferative diabe tic retinopathy, initially identified in vision tests conducted in August. 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 - Posterior capsule opacification is pre sent in both eyes. Although past injective treatments were administered, none showed improvement, leading to their discontinuation. Ambreen procedure treatment yielded uncertain results, warranting further consultation and evaluation regarding future intervention plans. - Glaucoma remains a suspect diagnosis i n connection with diabetes having been under long-term management challenges. - Facial involvement on the left side pr esents concerns originating from previous consultations. - Diabetes management history indicates periods where control was lost, bringing about familiarity with fluctuating symptomatology. - Presently addressing a history of uter ine cancer post-surgical procedure over two decades ago. - Displaying symptoms consistent with a vaginal infection, manifesting as distinct symptoms of itching and discharge, prescriptions and consultations are under review for therapeutic efficacy within a persistent issue timeline. [facility] Medical History Hx of cancer of uterus Diabetes mellitus with retinopathy History of CVA with residual deficit Atherosclerotic cardiovascular disease History of stroke Intracranial atherosclerosis Normocytic normochromic anemia Cancer History of degenerative joint disease GERD (gastroesophageal reflux disease) Sleep apnea Asthma Depression Vitamin D deficiency Tubular adenoma of colon Essential hypertension Dyslipidemia Type 2 diabetes mellitus without complication, without long-term current use of insulin Surgical History Hx of hand surgery History of carpal tunnel release Hx of endoscopy Hx of colonoscopy Hx of cholecystectomy History of total abdominal hysterectomy Family History Father Cancer Mother Cancer Myocardial infarction Family/Other Diabetes Social History Household Members: Spouse Housing: Apartment Do you presently have visiting nurse or other home services: Yes Alcohol intake: never Patient Tobacco Use Status: Never used Tobacco e-Cigarette/Vaping Use: Never Used Second Hand Smoke Exposure: No Advance Directives Date on File: 01/20/21 service: No Current occupational status: disabled Current occupation: rt handed Cognitive needs: No Hearing needs: No Vision needs: No Questionnaire Thrive Questionnaire Date Thrive assessed: 11/17/23 HAVEN-7 AMB Questionnaire HAVEN-7 Date HAVEN - 7 assessed: 11/17/23 Source: Developed by Drs. Manish Eckert, Lola Bernard, Enrique Red and colleagues, with an educational jaime from [employer]. Physical exam (Primary Care) Vital Signs: Last Vital Signs Pulse 77 05/22/24 11:46 BP 140/76 H 05/22/24 11:46 Pulse Ox 98 05/22/24 11:46 Oxygen Delivery Method Room Air 05/22/24 11:46 BMI result Body Mass Index 31.4 Tobacco/Smoking Status: Tobacco use Status Tobacco use date assessed 05/22/24 05/22/24 11:52 Patient Tobacco Use Status Never used Tobacco 05/22/24 11:40 e-Cigarette/Vaping Use Never Used 05/22/24 11:40 Thrive Assessment: Date of Thrive Assessment Date Thrive assessed 11/17/23 05/22/24 11:40 Results AMB Hemoglobin A1c AMB Hemoglobin A1c 6.0 % Last Edit by Shasta Mcclellan CMA on 05/22/24 12:04 Results Reviewed Results Reviewed: Laboratory Last Values Hgb A1c (Clinic) 6.0 % (4.0-6.0) 05/22/24 11:53 Name: Marisol Newton Age/Sex: 58/F : 1965 Unit#: [id number] Attend Dr: Jose David MD Re03/15/24 Status: DEP ER Location: [facility] Disch: SPEC : [id number] [place] 03/15/24 STATUS: COMP REQ : [id number] RECD: 03/15/[address]: Clemencia Valentine COMP: 03/15/24 ENTERED: 03/15/24-[address]: Physician,Unknown ORDERED: CBC Auto Diff Test Result Flag Reference WBC 7.8 4.8-10.8 X10*3/uL RBC 4.48 4.20-5.50 X10*6/uL HGB 12.4 12.0-16.0 g/dl HCT 37.5 37.0-47.0 % MCV 83.7 80.0-98.0 fL MCH 27.7 27.0-33.0 pg MCHC 33.1 31.0-35.0 g/dl RDW 13.5 11.0-16.0 % PLT 194 160-400 X10*3/uL MPV 10.8 9.4-12.3 fL Neut Pct Auto 73.0 45-73 % ImGran Pct Auto 0.4 0.0-0.4 % Lymp Pct Auto 19.3 L 20-40 % [place] Pct Auto 6.1 2-11 % Eos Pct Auto 0.8 0-4 % Baso Pct Auto 0.4 0-2 % NRBC Pct Auto 0.0 0.0-0.2 /100WBC ANC Neut Abs # 5.7 2.0-8.3 x10*3/uL ImGran Abs Auto 0.03 0.00-0.03 X10*3/uL Lymph Abs Auto 1.5 1.2-4.9 X10*3/uL [place] Abs Auto 0.5 0.1-1.2 X10*3/uL Eos Abs Auto 0.1 0.0-0.4 X10*3/uL Baso Abs Auto 0.0 0.0-0.2 X10*3/uL NRBC Abs Auto 0.000 0.0-0.012 X10*3/uL Coding Level of Care Code Est Pt Level 4 (56975) Complex EM visit Add On G2211 Diagnoses 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, without long-term current use of insulin E11.3553 Diabetes mellitus extermination supervisor insulin use: without custodial use Diabetes mellitus type: type 2 Diabetic retinopathy severity: with proliferative retinopathy Laterality: bilateral Proliferative retinopathy type: stable Dyslipidemia E78.5 Essential hypertension I10 History of CVA with residual deficit I69.30 Asthma J45.909 Hx of cancer of uterus Z85.42 Screening for malignant neoplasm of cervix declined Z53.20 Assessment & Plan Assessment & Plan (1) Diabetes mellitus with retinopathy: Code(s): E11.319 - Type 2 diabetes mellitus with unspecified diabetic retinopathy without macular edema Category: Medical Qualifiers: Diabetes mellitus custodial insulin use: without extermination supervisor use Diabetes mellitus type: type 2 Diabetic retinopathy severity: with proliferative retinopathy Laterality: bilateral Proliferative retinopathy type: stable Qualified Code(s): E11.3553 - Type 2 diabetes mellitus with stable proliferative diabetic retinopathy, bilateral (2) Dyslipidemia: Code(s): E78.5 - Hyperlipidemia, unspecified Category: Medical (3) Essential hypertension: Code(s): I10 - Essential (primary) hypertension Category: Medical (4) History of CVA with residual deficit: Code(s): I69.30 - Unspecified sequelae of cerebral infarction Category: Medical (5) Asthma: Code(s): J45.909 - Unspecified asthma, uncomplicated Category: Medical (6) Hx of cancer of uterus: Code(s): Z85.42 - Personal history of malignant neoplasm of other parts of uterus Category: Medical (7) Screening for malignant neoplasm of cervix declined: Code(s): Z53.20 - Procedure and treatment not carried out because of patient's decision for unspecified reasons Plan Addressing the multifaceted concerns presented, further ophthalmic evaluation is warranted to consider viable interventions for enhancing visual efficacy. The patient's diabetes management plan stresses the integration of disciplined medicinal adherence alongside the performance of pending laboratory work. Collaborative engagement in achieving targeted weight loss remains emphasized amidst structured exercise adaptability. Immediate referral to gynecological expertise is advocated to resolve persistent infection symptoms. Optimal hypertension control requires committed medication adherence. Surveillance of prior uterine cancer mandates continuity in regular health evaluations, facilitating comprehensive management across her health spectrum. Today's session comprised discussions about potential repeated Ambreen procedures or lens capsule removal to address ongoing visual impairment. I advised ongoing diabetes management, including diligent medication adherence and fasting blood work flexibility for cholesterol level evaluation. Weight loss desires were ac knowledged with recommendations for progressive exercise adjustments, respecting current transport limitations. The patient's report of a vaginal infection demands gynecological consultation, ensuring precise assessment and intervention. Blood pressure regulation discussions emphasized the consistency of antihypertensive medication intake. There was careful consideration of the patient?s longstanding health history, including previous uterine cancer, necessitating regular medical oversight. Follow-ups include arrangements for essential diagnostic procedures and continued cancer surveillance. - Follow up with an signaling design engineer for further evaluation of eyes. - Maintain diabetes medication schedule and conduct fasting blood work today. - Pursue a gradual exercise routine, considering current constraints. - Contact your global cto for a consultation regarding the vaginal symptoms. - Ensure regular blood pressure medication intake. - Continue routine checks for uterine cancer monitoring. - If worsening symptoms or new concerns arise, seek medical review promptly. Patient was informed and verbally consented to the use of an ambient scribe for clinic note documentation during this visit. Orders: Orders AMB Hemoglobin A1c 05/22/24 E11.3553 - Type 2 diabetes mellitus with stable proliferative diabetic retinopathy, bilateral Referrals WIDE PIECE GOODS INSPECTOR Referral Z53.20 - Procedure and treatment not carried out because of patient's decision for unspecified reasons, Z85.42 - Personal history of malignant neoplasm of other parts of uterus
[2024-05-22 11:46] VITALS: BP 140/76; PULSE 77; O2SAT 98; BMI 31.4
== END 2024-05-22 13:41 | disposition home or self-care (01) ==
PROVIDERS: PCP Internal Medicine; Visit Provider Internal Medicine
DX: E11.3553 Type 2 diabetes mellitus with stable proliferative diabetic retinopathy, bilateral (principal)

== ENCOUNTER 2024-08-23 12:27 | Outpatient (REF) | payer OTHER, SELFPAY ==
[2024-08-23 13:38] LABS: Estimated Average Glucose 143 mg/dL; Hemoglobin A1C 149.2473 umol/L; Hemoglobin A1c % 6.6 % (<6.0); Total Hemoglobin (HGBA1C) 3044.7619 umol/L
[2024-08-23 14:08] LABS: Alanine Aminotransferase 12 U/L (0-31); Anion Gap 13 (12-20); Aspartate Amino Transferase 19 U/L (5-31); Blood Urea Nitrogen 25 mg/dL (9-16); Carbon Dioxide 27 mmol/L (22-29); Chloride 106 mmol/L (96-108); Cholesterol 188 mg/dL (<200); Estimated Glomerular Filt Rate > 60; Glucose Fasting 105 mg/dL (60-99); HDL Cholesterol 60 mg/dL (>40); LDL Cholesterol Calculated 114 mg/dL (<100); Potassium 4.5 mmol/L (3.3-5.1); Sodium 141 mmol/L (135-145); Triglycerides 72 mg/dL (<150)
[2024-08-23 14:20] LABS: Vitamin D 25-OH Total 15.4 ng/mL (>30)
--- OUTSIDE RECORDS SUMMARY | 2024-08-23 14:37 | XMS_ITS | Clinical Summary ---
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 Name Role Phone Unavailable Primary Care Provider Unavailabl e Social History Tobacco Use Types Packs/Day Years Used Date Smoking Tobacco: Never Assessed Comments Unknown Sex and Gender Information Value Date Recorded Sex Assigned at Not on file Legal Sex Female 11:35 PM EST Gender Identity Not on file Sexual Orientation Not on file Plan of Treatment Health Maintenance Due Date Last Done Comments Breast Cancer Screening 1965 DTaP,Tdap,and Td Vaccines (1 - Tdap) 1982 Cervical Cancer Screening: P ap Smear 1984 Pneumococcal Vaccine: 50+ Ye ars (1 of 1 - PCV) 2013 Zoster Vaccines (1 of 2) 2013 Colorectal Cancer Screening: Colonoscopy 04/05/2022 Depression Screening 04/05/2022 HIV Screening 04/05/2022 Hepatitis C Screening 04/05/2022 Social Influencers of Health Screening 04/05/2022 COVID-19 Vaccine ( - 2023-2 5 season) 2024 Influenza Vaccine (Season Ended) 2025 RSV Immunization Adult Patie nts (1 - 1-dose 75+ series) 2038 HIB Vaccines Aged Out No longer eligi ble based on patient's age to complete this topic HPV Vaccines Aged Out No longer eligi ble based on patient's age to complete this topic Hepatitis A Vaccines Aged Out No long er eligible based on patient's age to complete this topic Hepatitis B Vaccines Aged Out No long er eligible based on patient's age to complete this topic IPV Vaccines Aged Out No longer eligi ble based on patient's age to complete this topic MMR Vaccines Aged Out No longer eligi ble based on patient's age to complete this topic Meningococcal ACWY Vaccine Aged Out N o longer eligible based on patient's age to complete this topic Meningococcal B Vaccine Aged Out No l onger eligible based on patient's age to complete this topic Pneumococcal Vaccine: Pediat rics (0 to 5 Years) and At-Risk Patients (6 to 64 Years) Aged Out No longer eligible b ased on patient's age to complete this topic RSV Immunization Patients Un josefina 20 months Aged Out No longer eligible b ased on patient's age to complete this topic Varicella Vaccines Aged Out No longer eligible based on patient's age to complete this topic
[2024-08-23 16:34] LABS: Creatinine Urine 88.36 mg/dL; Microalbum/Creatinine Ratio Ur 345.1 ug/mg cr (<30)
== END 2024-08-23 12:28 | disposition home or self-care (01) ==
LOC: HO.HMGCLDS 12:27
PROVIDERS: PCP Internal Medicine; Visit Provider Internal Medicine
DX: E11.3553 Type 2 diabetes mellitus with stable proliferative diabetic retinopathy, bilateral (principal); E78.5 Hyperlipidemia, unspecified; I10 Essential (primary) hypertension; I69.30 Unspecified sequelae of cerebral infarction; E55.9 Vitamin D deficiency, unspecified; E66.9 Obesity, unspecified; Z79.82 Long term (current) use of aspirin; Z79.84 Long term (current) use of oral hypoglycemic drugs; Z79.899 Other long term (current) drug therapy
CPT/HCPCS: 36415; 80048; 80061; 82043; 82306; 82570; 83036; 84450; 84460; 96127; 99212

== ENCOUNTER 2024-08-23 12:44 | Outpatient (AMB) | payer OTHER, SELFPAY ==
--- NOTE | 2024-08-23 13:11 | MHC.PC.OV ---
Vital Signs 08/23/24 13:15 Height 5 ft Weight 169 lb BMI 33.0 BP 130/70 Blood Pressure Location Rt brachial Position Sitting Respiration 16 Pulse 71 Pulse Source Pulse Oximeter Temp 97.8 F Temp Source Oral Pulse Oximetry (%) 98 Oxygen Delivery Method Room Air Intake Visit Reasons: 3m f/u Intake Note: Pt is here today for her 3mo. f/u Allergies No Known Allergies [No Known Allergies*] Allergy (Verified 08/23/24 13:27) Medication List - Last Reconciled 08/23/24 by María Cooper MD [Adult pull-ups Use As directed NS] amlodipine 2.5 mg See Protocol PO DAILY atorvastatin 80 mg PO BEDTIME 3 months blood sugar diagnostic (FreeStyle Lite Strips) test blood sugar twice a day blood sugar diagnostic (FreeStyle Lite Strips) Check fasting blood sugar twice a day before meals blood-glucose meter (FreeStyle Lite Meter kit) Three times a day cholecalciferol (vitamin D3) 1,250 mcg PO QWEEK 3 months [diaphers As directed NS] dulaglutide 1.5 mg (0.5 mL) subcut TU@0900 30 days ezetimibe 10 mg PO DAILY [Hand-held shower Use As directed NS] ibuprofen 600 mg PO BID PRN lancing device As directed lisinopril-hydrochlorothiazide 10-12.5 mg 1 tab PO DAILY metformin 500 mg PO DAILY miscellaneous medical supply Use As directed NS [Raised toilet seat As directed NS] [Re-usable bed pads Use As directed NS] tizanidine 2 mg PO BEDTIME PRN [To [place] rehabilitation program .?Occupational Therapy evaluation for functional community mobility. NS] Tobacco use date assessed: 08/23/24 Dental Screening Dental Screen Date: 08/23/24 Did you have a dental visit in the last 12 months?: No Did you have a dental problem in the last 6 months where you did not have access to dental care?: No Was dental information given to patient?: Patient has dentist HPI 3m f/u HPI Details 59-year-old lady with history of CVA with residual left-sided hemiparesis, here today for follow-up on her lipids, diabetes mellitus with retinopathy and hypertension. She has been compliant with taking her medications, and tries to follow recommended diet but has been sedentary for most of the winter months, and has gained approximately 8 lb since last visit.. She had fasting labs done today, with results still pending. [facility] Medical History Hx of cancer of uterus Diabetes mellitus with retinopathy History of CVA with residual deficit Atherosclerotic cardiovascular disease History of stroke Intracranial atherosclerosis Normocytic normochromic anemia Cancer History of degenerative joint disease GERD (gastroesophageal reflux disease) Sleep apnea Asthma Depression Vitamin D deficiency Tubular adenoma of colon Essential hypertension Dyslipidemia Type 2 diabetes mellitus without complication, without long-term current use of insulin Surgical History Hx of hand surgery History of carpal tunnel release Hx of endoscopy Hx of colonoscopy Hx of cholecystectomy History of total abdominal hysterectomy Family History Father Cancer Mother Cancer Myocardial infarction Family/Other Diabetes Social History Household Members: Spouse Housing: Apartment Do you presently have visiting nurse or other home services: Yes Alcohol intake: never Patient Tobacco Use Status: Never used Tobacco e-Cigarette/Vaping Use: Never Used Second Hand Smoke Exposure: No Advance Directives Date on File: 01/20/21 service: No Current occupational status: disabled Current occupation: rt handed Cognitive needs: No Hearing needs: No Vision needs: No Questionnaire PHQ-9 Over the last 2 weeks, how often have you been bothered by any of the following problems? 1. Little interest or pleasure in doing things: not at all 2. Feeling down, depressed, or hopeless: not at all 3. Trouble falling or staying asleep, or sleeping too much: not at all 4. Feeling tired or having little energy: not at all 5. Poor appetite or overeating: not at all 6. Feeling bad about yourself - or that you are a failure or have let yourself or your family down: not at all 7. Trouble concentrating on things, such as reading the newspaper or watching television: not at all 8. Moving or speaking so slowly that other people could have noticed. Or the opposite - being so fidgety or restless that you have been moving around a lot more than usual: not at all 9. Thoughts that you would be better off or of hurting yourself in some way: not at all Total score: 0 Depression Screening Interpretation: Negative Depression Screening Done: Yes 22701 - PHQ-9 Billing: Yes Source: Developed by Drs. Manish Eckert, Lola Bernard, Enrique Red and colleagues, with an educational jaime from [employer]. Thrive Questionnaire Date Thrive assessed: 08/23/24 I am a: Patient What is your living situation today?: I have a steady place to live Within the past 12 months, did the food you bought not last and you didn't have the money to get more?: Never true Within the past 12 months, did you worry whether your food would run out before you got money to buy more?: Never true Do you have trouble paying for medicines?: No Do you have trouble getting transportation to medical appointments?: No Do you have trouble paying your heating and electricity bill?: No Do you have trouble taking care of your child, family member or friend?: No Do you have trouble with day-to-day activities such as bathing, preparing meals, shopping, managing finances, etc.?: No Are you currently unemployed and looking for a job?: No Are you interested in more education?: No THRIVE Score: 0 HAVEN-7 AMB Questionnaire HAVEN-7 Date HAVEN - 7 assessed: 08/23/24 Feeling nervous, anxious, or on edge: 0 = Not at all Not being able to stop or control worryin = Not at all Worrying too much about different things: 0 = Not at all Trouble relaxin = Not at all Being so restless that it is hard to sit still: 0 = Not at all Becoming easily annoyed or irritable: 0 = Not at all Feeling afraid as if something awful might happen: 0 = Not at all Total HAVEN-7 score (0-4 normal; 5-9 mild; 10-14 moderate; 15-21 severe): 0 Source: Developed by Drs. Manish Eckert, Lola Bernard, Enrique Red and colleagues, with an educational jaime from [employer]. HAVEN-7 Assessment Billing HAVEN-7 Assessment Tool: HAVEN-7 Assessment 01621 Review of Systems Const Reports no additional complaints and Denies headache(s) Eyes Details: Goes to [facility] Denies headache(s), Denies nasal discharge, Denies neck pain, Denies post nasal drip and Denies tinnitus Card Denies chest pain, Denies palpitations and Denies dyspnea Resp Denies cough and Denies dyspnea GI Denies abdominal pain, Denies melena, Denies change in bowel habits and Denies heartburn Denies urinary frequency and Denies dysuria Musc Reports muscle weakness (left arm, unchanged), Denies neck pain, Reports numbness (left arm), Reports stiffness and Reports tingling (left arm) Skin/Breast Denies breast pain, Denies breast mass and Denies rash Neuro Denies headache(s), Reports numbness (left arm) and Reports tingling (left arm) Endo Reports cold intolerance (left upper extremity), Denies polydipsia, Denies polyuria and Denies palpitations Rodrigo/Lymph Denies easy bruising Aller/Immun Reports no additional complaints Physical exam (Primary Care) Vital Signs: Last Vital Signs Temp 97.8 F 08/23/24 13:15 Pulse 71 08/23/24 13:15 Resp 16 08/23/24 13:15 BP 130/70 08/23/24 13:15 Pulse Ox 98 08/23/24 13:15 Oxygen Delivery Method Room Air 08/23/24 13:15 BMI result Body Mass Index 33.0 Tobacco/Smoking Status: Tobacco use Status Tobacco use date assessed 08/23/24 08/23/24 13:14 Patient Tobacco Use Status Never used Tobacco 08/23/24 13:14 e-Cigarette/Vaping Use Never Used 08/23/24 13:14 PHQ-9: PHQ-9 Score PHQ-9: Total score 0 08/23/24 13:40 Depression Screening Interpretation: Negative Thrive Assessment: Date of Thrive Assessment Date Thrive assessed 08/23/24 08/23/24 13:21 Const General: no acute distress and alert Orientation/consciousness: patient oriented x3 HENMT Head: Yes normocephalic Ears: external ears normal, TM's normal bilaterally and EAC's normal General nose exam: Normal external nose present and No nasal discharge present Face and sinus: Yes Flattened naso-labial fold present (On left, Unchanged from previous visits) Mouth: Normal oral and palatal mucosa present, tongue normal (Midline on protrusion), oropharynx normal and moist mucous membranes Eyes General: appearance normal, both eyes and all related structures Neck Neck: Yes full ROM, Yes no lymphadenopathy and Yes supple Resp Effort & Inspection: normal respiratory effort and able to speak in complete sentences Auscultation: clear to auscultation bilaterally Cardio Rate: regular rate Rhythm: regular rhythm Heart sounds: S1 normal heart sound present and S2 normal heart sound present GI Inspection: Yes normal to inspection Palpation (GI): Soft to palpation, nontender and no masses Auscultation: normal bowel sounds Skin General skin exam: no rashes or lesions noted Neuro General: patient oriented x3 Cognition (Neuro): normal cognition Extrem Other: Left arm with contracture deformity Coding Level of Care Code Est Pt Level 4 (04225) Complex EM visit Add On G2211 Diagnoses 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, without long-term current use of insulin E11.3553 Diabetes mellitus type: type 2 Diabetes mellitus exterminator insulin use: without care home use Diabetic retinopathy severity: with proliferative retinopathy Proliferative retinopathy type: stable Laterality: bilateral Dyslipidemia E78.5 Essential hypertension I10 History of CVA with residual deficit I69.30 Additional Codes PHQ-9 - 52701 - PHQ-9 Billing: Yes ([id number]) HAVEN-7 Assessment Billing - HAVEN-7 Assessment Tool: HAVEN-7 Assessment [id number] ([id number]) Assessment & Plan Assessment & Plan (1) Diabetes mellitus with retinopathy: Code(s): E11.319 - Type 2 diabetes mellitus with unspecified diabetic retinopathy without macular edema Category: Medical Qualifiers: Diabetes mellitus type: type 2 Diabetes mellitus exterminator insulin use: without exterminator use Diabetic retinopathy severity: with proliferative retinopathy Proliferative retinopathy type: stable Laterality: bilateral Qualified Code(s): E11.3553 - Type 2 diabetes mellitus with stable proliferative diabetic retinopathy, bilateral Plan: Fasting labs still pending, currently on metformin 500 mg once a day and Trulicity 1.5 mg injected subcutaneously once a week (2) Dyslipidemia: Code(s): E78.5 - Hyperlipidemia, unspecified Category: Medical Plan: Currently on atorvastatin 80 mg daily and ezetimibe 10 mg once a day. Fasting labs have been drawn with results still pending (3) Essential hypertension: Code(s): I10 - Essential (primary) hypertension Category: Medical Plan: Blood pressure stable and controlled, continued on lisinopril-HCTZ 10-12.5 mg taken once daily. (4) History of CVA with residual deficit: Code(s): I69.30 - Unspecified sequelae of cerebral infarction Category: Medical Plan: Continue aspirin 81 mg daily, stressed importance of getting diabetes mellitus, hypertension lipids well controlled
[2024-08-23 13:15] VITALS: BP 130/70; PULSE 71; RESP 16; TEMP 36.6; O2SAT 98; BMI 33.0
--- OUTSIDE RECORDS SUMMARY | 2024-08-23 15:01 | XMS_ITS | Clinical Summary ---
Author Organization [facility] ity Address [address] [place] [address] Care Team Providers Care Manager Cable Name Role Phone Unavailable Primary Care Provider [...]
== END 2024-08-23 13:42 | disposition home or self-care (01) ==
LOC: HO.HMCC 12:45
PROVIDERS: PCP Internal Medicine; Visit Provider Internal Medicine
DX: E11.3553 Type 2 diabetes mellitus with stable proliferative diabetic retinopathy, bilateral (principal); E78.5 Hyperlipidemia, unspecified; I10 Essential (primary) hypertension; I69.30 Unspecified sequelae of cerebral infarction

== ENCOUNTER 2024-09-22 07:37 | Emergency (ER) | payer OTHER, SELFPAY ==
--- NOTE | ~2024-09-22 | XR_ITS ---
EXAMINATION: XR CHEST 2 VIEWS HISTORY: weakness COMPARISON: Comparison is made with the prior examination dated 05/25/2023. FINDINGS: PA and lateral views of the chest are submitted. The lungs are expanded and clear. There is no pleural effusion, pneumothorax, or pulmonary vascular congestion. The heart is normal in size. The aorta is calcified. There is degenerative disc disease of the spine. XR/XR chest 2V IMPRESSION: No acute cardiopulmonary abnormality. Electronically signed by: Manish Grant MD 09/22/2024 09:21 AM EDT
--- NOTE | 2024-09-22 08:04 | ED_ITS ---
HPI - Nausea/Vomiting/Diarrhea General Chief complaint: General Medical Stated complaint: DIZZINESS DIARRHEA Time Seen by Provider: 09/22/24 08:03 Source: patient and staff interpreter Mode of arrival: ambulatory Limitations: language barrier History of Present Illness ED Provider: HPI Narrative: 59-year-old female presenting with nausea, vomiting and diarrhea denies sick contacts, she states that when she is getting up from a seated position he is also feeling dizzy, no chest pain or shortness of breath, did have some epigastric abdominal pain, no lower abdominal pain no vaginal bleeding or discharge. No rashes no headaches no sore throat. Related Data Previous Rx's ?Medication ?Instructions ?Recorded To [facility] #1 ea 04/06/23 blood sugar diagnostic (FreeStyle #100 ea 04/17/23 Lite Strips) blood-glucose meter (FreeStyle #1 ea 04/18/23 Lite Meter kit) lancing device #1 ea 04/18/23 tizanidine 2 mg capsule 2 mg PO BEDTIME PRN muscle 05/25/23 spasticity #10 caps blood sugar diagnostic (FreeStyle #100 ea 11/17/23 Lite Strips) amlodipine 2.5 mg tablet 2.5 mg PO DAILY #90 tabs 01/13/24 atorvastatin 80 mg tablet 80 mg PO BEDTIME 3 months #90 tabs 01/13/24 ezetimibe 10 mg tablet 10 mg PO DAILY #90 tabs 01/13/24 Adult pull-ups #150 ea 05/17/24 Hand-held shower #1 ea 05/17/24 Raised toilet seat #1 ea 05/17/24 Re-usable bed pads #4 ea 05/17/24 diaphers #100 ea 05/17/24 miscellaneous medical supply #1 ea 05/17/24 lisinopril 10 1 tab PO DAILY #90 tabs 08/01/24 mg-hydrochlorothiazide 12.5 mg tablet cholecalciferol (vitamin D3) 1,250 1,250 mcg PO QWEEK 3 months #13 08/28/24 mcg (50,000 unit) capsule caps dulaglutide 1.5 mg/0.5 mL 1.5 mg (0.5 mL) subcut QWEEK 30 09/07/24 subcutaneous pen injector days #2 mL metformin 500 mg tablet 500 mg PO DAILY #90 tabs 09/07/24 ibuprofen 600 mg tablet 600 mg PO BID PRN for pain #40 tabs 09/10/24 cephalexin 500 mg capsule 500 mg PO BID 7 days #14 caps 09/22/24 ondansetron 4 mg disintegrating 4 mg PO Q8H PRN nausea and 09/22/24 tablet vomiting #4 tabs Allergies Allergy/AdvReac Type Severity Reaction Status Date / Time No Known Allergies Allergy Verified 09/22/24 08:11 [No Known Allergies*] Review of Systems 2 Constitutional: Constitutional: Reports as per HPI [facility] Past Medical History Medical History Hx of cancer of uterus Diabetes mellitus with retinopathy History of CVA with residual deficit Atherosclerotic cardiovascular disease History of stroke Intracranial atherosclerosis Normocytic normochromic anemia Cancer History of degenerative joint disease GERD (gastroesophageal reflux disease) Sleep apnea Asthma Depression Vitamin D deficiency Tubular adenoma of colon Essential hypertension Dyslipidemia Type 2 diabetes mellitus without complication, without long-term current use of insulin Surgical History Hx of hand surgery History of carpal tunnel release Hx of endoscopy Hx of colonoscopy Hx of cholecystectomy History of total abdominal hysterectomy Family History Family History Father Cancer Mother Cancer Myocardial infarction Family/Other Diabetes Social History Social History Household Members: Spouse Housing: Apartment Do you presently have visiting nurse or other home services: Yes Alcohol intake: never Patient Tobacco Use Status: Never used Tobacco e-Cigarette/Vaping Use: Never Used Second Hand Smoke Exposure: No Advance Directives: Yes Advance Directives on File: Yes Advance Directives Date on File: 01/20/21 service: No Current occupational status: disabled Current occupation: rt handed Cognitive needs: No Hearing needs: No Vision needs: No Physical Exam 2 Vital Signs: Vital Signs: Last Vital Signs Temp 99.5 F 09/22/24 08:07 Pulse 91 09/22/24 08:07 Resp 16 09/22/24 08:07 BP 116/53 L 09/22/24 08:07 Pulse Ox 98 09/22/24 08:07 O2 Del Method Room Air 09/22/24 08:07 BMI result Body Mass Index 32.5 Const: Other: * Gen: ?Overall well-appearing patient * HEENT: PERRLA, EOMI, MMM, * Neck: Supple, no LAD * CV: RRR, no obvious murmurs appreciated * Resp: ?No wheezing rales rhonchi no stridor moving air well * Abd: ?Bowel sounds are present, no tenderness no rebound no rigidity * MSK: FROM, strength 5/5 all extremities * Skin: Warm, dry, intact, * Neuro: ?Alert and oriented x3, moving upper and lower extremities symmetrically, no obvious facial asymmetry noted Medications Administered Discontinued Medications Generic Name Dose Route Start Last Admin Trade Name Freq PRN Reason Stop Dose Admin Al Hydroxide/Mg Hydroxide 30 ml 09/22/24 08:04 09/22/24 08:21 Magnesium Hydrox/Alum Hydrox 30 Ml Oral.Susp PO 09/22/24 08:05 30 ml ONCE ONE Administration Famotidine 20 mg 09/22/24 08:04 09/22/24 08:21 Famotidine/Pf 20 Mg/2 Ml Vial IVPUSH 09/22/24 08:05 20 mg ONCE ONE Administration Sodium Chloride 1,000 mls @ 999 mls/hr 09/22/24 08:15 09/22/24 08:17 Ns IV 09/22/24 09:15 999 mls/hr .Q1H1M BUSTER Administration Lidocaine HCl 15 ml 09/22/24 08:04 09/22/24 08:21 Lidocaine Hcl Viscous 2 % 15 Ml Solution PO 09/22/24 08:05 15 ml ONCE ONE Administration Ondansetron HCl 4 mg 09/22/24 08:04 09/22/24 08:21 Ondansetron Hcl 4 Mg/2 Ml Vial IVPUSH 09/22/24 08:05 4 mg ONCE ONE Administration Medical Decision Making Medical Decision Making [facility] Narrative: 08:08 considerations for workup as below, symptomatic control, re-evaluation disposition to be determined did not feel requires further imaging such as CT my suspicion for SBO, perforation, diverticulitis appendicitis is low based on physical examination 09:30 patient re-evaluated, she feels better she received fluids, she urinated she urine sample looks cloudy and I asked him questions whether she has had dysuria now she is complaining of dysuria as well we will send urine otherwise we will anticipate discharge Differential Diagnosis Differential Diagnoses: The differential diagnosis associated with the presentation includes Dehydration, electrolyte derangements, pneumonia, ACS, pancreatitis, hepatitis, cholecystitis Lab Data MDM Lab Attestation statement: I reviewed the patient's lab results. 09/22/24 08:15 09/22/24 08:15 Labs: Lab Results 09/22/24 09/22/24 Range/Units 08:15 09:33 WBC 14.3 H (4.8-10.8) X10*3/uL RBC 3.70 L (4.20-5.50) X10*6/uL Hgb 10.5 L (12.0-16.0) g/dl Hct 30.6 L (37.0-47.0) % MCV 82.7 (80.0-98.0) fL MCH 28.4 (27.0-33.0) pg MCHC 34.3 (31.0-35.0) g/dl RDW 13.3 (11.0-16.0) % Plt Count 148 L (160-400) X10*3/uL MPV 11.6 (9.4-12.3) fL Immature Gran % (Auto) Cancelled Neut % (Auto) Cancelled Lymph % (Auto) Cancelled Foster % (Auto) Cancelled Eos % (Auto) Cancelled Baso % (Auto) Cancelled Lymph # (Auto) Cancelled Foster # (Auto) Cancelled Eos # (Auto) Cancelled Baso # (Auto) Cancelled Abs Immat Gran (auto) Cancelled Absolute Neuts (auto) Cancelled Absolute Nucleated RBC 0.000 (0.0-0.012) X10*3/uL Nucleated RBC % (auto) 0.0 (0.0-0.2) /100WBC Neutrophils % (Manual) 80 H (45-73) % Band Neutrophils % 9 H (3-5) % Lymphocytes % (Manual) 2 L (20-40) % Monocytes % (Manual) 9 (2-11) % Abs Neuts (Manual) 12.7 H (2.0-8.3) X10*3/uL Lymphocytes # (Manual) 0.3 L (1.2-4.9) X10*3/uL Monocytes # (Manual) 1.3 H (0.1-1.2) X10*3/uL Platelet Estimate NORMAL (NORMAL) Plt Morphology Comment NORMAL RBC Morphology NORMAL Smear Tech's Comments MANUAL DIFF Sodium 140 (135-145) mmol/L Potassium 3.0 L D (3.3-5.1) mmol/L Chloride 107 (96-108) mmol/L Carbon Dioxide 24 (22-29) mmol/L Anion Gap 12 (12-20) BUN 21 H (9-16) mg/dL Creatinine 0.96 (0.5-1.4) mg/dL Estim Creat Clear Calc 58.1 Estimated GFR 59 Random Glucose 180 H (60-115) mg/dL Calcium 8.4 D (8.4-10.2) mg/dL Magnesium 1.7 (1.6-2.6) mg/dL Total Bilirubin 0.6 (0.0-1.0) mg/dL AST 27 (5-31) U/L ALT 27 (0-31) U/L Alkaline Phosphatase 90 (39-117) U/L Troponin I High Sens 8.8 D (<3.5-17.0) ng/L Total Protein 6.8 (6.5-8.0) g/dL Albumin 3.1 L (3.5-5.0) g/dL Lipase 9 (8-78) U/L Urine Color Yellow Urine Appearance Turbid Urine pH 5.5 (5.0-9.0) Ur Specific [place] 1.015 (1.005-1.025) Urine Protein 100 (2+) H (Neg-Trace) mg/dL Urine Glucose (UA) Negative (Negative) mg/dL Urine Ketones Trace (Negative) mg/dL Urine Blood Large (3+) H (Negative) Urine Nitrite Positive H (Negative) Ur Leukocyte Esterase Large (3+) H (Negative) Urine RBC 3-5 H (0-2) /HPF Urine WBC >50 H (0-5) /HPF Ur Squamous Epith Cells 6-10 (0-2) /HPF Urine Bacteria 4+ (None Seen) Hyaline Casts 0-2 (0-2) /LPF Independent Interpretation I performed an independent interpretation of an: EKG (98 otherwise normal ECG without dysrhythmia, AV laurie blocks or ST-T changes to suspect underlying ACS, my independent interpretation) Radiology Impression Discussion of test interpretation with radiology: I have reviewed the radiologist's reading. Radiologist Impression: XR/XR chest 2V IMPRESSION: No acute cardiopulmonary abnormality. Discharge Plan Discharge Clinical Impression: Nausea & vomiting Qualifiers: Vomiting type: unspecified Qualified Code(s): R11.2 - Nausea with vomiting, unspecified UTI (urinary tract infection) Qualifiers: Hematuria presence: with hematuria Patient Disposition: Home, Self-Care Additional Instructions: Please take antibiotics starting tomorrow, you do have evidence for urinary tract infection maybe that is what is giving her symptoms also use Zofran 4 mg every 8 hours for need of nausea and vomiting, stay well hydrated, the rest of your blood work has been reassuring, follow up with the PCP worsening issues concerns come back to the ER Prescriptions: New cephalexin 500 mg capsule 500 mg PO BID 7 Days Qty: 14 0RF ondansetron 4 mg tablet,disintegrating 4 mg PO Q8H PRN (Reason: nausea and vomiting) Qty: 4 0RF No Action (DME) To [facility] See Rx Instructions .Route .MEDSUPPLY Qty: 1 0RF Rx Instructions: .?Occupational Therapy evaluation for functional community mobility. (DME) FreeStyle Lite Strips Strip See Rx Instructions .ROUTE .MEDSUPPLY Qty: 100 6RF Rx Instructions: test blood sugar twice a day (DME) blood-glucose meter [FreeStyle Lite Meter] Kit See Rx Instructions .ROUTE .MEDSUPPLY Qty: 1 0RF Rx Instructions: Three times a day (DME) lancing device Misc See Rx Instructions .ROUTE .MEDSUPPLY Qty: 1 0RF Rx Instructions: As directed amlodipine 2.5 mg tablet 2.5 mg PO DAILY Qty: 90 1RF Protocol: Hold for SBP< HOLD for SBP < : 90 atorvastatin 80 mg tablet 80 mg PO BEDTIME 90 Days Qty: 90 1RF ezetimibe 10 mg tablet 10 mg PO DAILY Qty: 90 1RF Rx Instructions: NEED SCHEDULED APPOINTMENT FOR FUTURE REFILLS (DME) miscellaneous medical supply Misc See Rx Instructions .Route Qty: 1 0RF Rx Instructions: Use As directed (DME) Hand-held shower See Rx Instructions .Route .MEDSUPPLY Qty: 1 0RF Rx Instructions: Use As directed (DME) Re-usable bed pads See Rx Instructions .Route .MEDSUPPLY Qty: 4 2RF Rx Instructions: Use As directed (DME) Adult pull-ups large See Rx Instructions .Route .MEDSUPPLY Qty: 150 11RF Rx Instructions: Use As directed (DME) diaphers large See Rx Instructions .Route .MEDSUPPLY Qty: 100 11RF Rx Instructions: As directed (DME) Raised toilet seat See Rx Instructions .Route .MEDSUPPLY Qty: 1 0RF Rx Instructions: As directed lisinopril-hydrochlorothiazide 10-12.5 mg tablet 1 tab PO DAILY Qty: 90 1RF dulaglutide 1.5 mg/0.5 mL pen injector 1.5 mg subcut QWEEK 30 Days Qty: 2 5RF metformin 500 mg tablet 500 mg PO DAILY Qty: 90 1RF ibuprofen 600 mg tablet 600 mg PO BID PRN (Reason: for pain) Qty: 40 0RF tizanidine 2 mg capsule 2 mg PO BEDTIME PRN (Reason: muscle spasticity) Qty: 10 0RF (DME) FreeStyle Lite Strips Strip See Rx Instructions .Route Qty: 100 5RF Rx Instructions: Check fasting blood sugar twice a day before meals cholecalciferol (vitamin D3) 1,250 mcg (50,000 unit) capsule 1,250 mcg PO QWEEK 90 Days Qty: 13 0RF Referrals: María Cooper MD [Primary Care Provider] - Print Language: Slovenian
--- NOTE | 2024-09-22 08:05 | ECG_ITS ---
Test Reason : weakness Blood Pressure : */* mmHG Vent. Rate : 98 BPM Atrial Rate : 98 BPM P-R Int : 142 ms QRS Dur : 82 ms QT Int : 338 ms P-R-T Axes : 39 32 13 degrees QTcB Int : 431 ms Normal sinus rhythm Normal ECG When compared with ECG of 15-Mar-2024 15:44, Vent. rate has increased by 32 bpm Referred By: Anshul Alva Electronically Signed By: Poncho Nieto
[2024-09-22 08:07] VITALS: BP 116/53; BP 122/64; PULSE 105; PULSE 91; RESP 16; TEMP 37.5; O2SAT 96; O2SAT 98; BMI 32.5
[2024-09-22] MEDS: 0.9 % Sodium Chloride 1,000 ML 999 ML IV (08:17)
--- OUTSIDE RECORDS SUMMARY | 2024-09-22 08:18 | XMS_ITS | Clinical Summary ---
Author Organization [facility] ity Address [address] [place] [address] Care Team Providers Care Drafting Technician Name Role Phone Unavailable Primary Care Provider [...] 2013 Zoster Vaccines (1 of 2) 2013 COVID-19 Vaccine ( - 2023-2 5 season) [...]
[2024-09-22] MEDS: Magnesium Hydrox/Alum Hydrox 30 ML ORAL.SUSP PO (08:21)
[2024-09-22] MEDS: ondansetron HCL 4 MG/2 ML VIAL IVPUSH (08:21)
[2024-09-22] MEDS: Lidocaine HCl Viscous 2 % 15 ML SOLUTION PO (08:21)
[2024-09-22] MEDS: Famotidine/PF 20 MG/2 ML VIAL IVPUSH (08:21)
[2024-09-22 08:46] LABS: Alanine Aminotransferase 27 U/L (0-31); Albumin Level 3.1 g/dL (3.5-5.0); Alkaline Phosphatase 90 U/L (39-117); Anion Gap 12 (12-20); Aspartate Amino Transferase 27 U/L (5-31); Bilirubin Total 0.6 mg/dL (0.0-1.0); Blood Urea Nitrogen 21 mg/dL (9-16); Calcium 8.4 mg/dL (8.4-10.2); Carbon Dioxide 24 mmol/L (22-29); Chloride 107 mmol/L (96-108); Creatinine Clr Calc Pharmacy 58.1; Estimated Glomerular Filt Rate 59; Glucose Random 180 mg/dL (60-115); Lipase 9 U/L (8-78); Magnesium 1.7 mg/dL (1.6-2.6); Sodium 140 mmol/L (135-145); Total Protein 6.8 g/dL (6.5-8.0)
[2024-09-22 08:53] LABS: Troponin-I High Sensitivity 8.8 ng/L (<3.5-17.0)
[2024-09-22 09:07] LABS: Hematocrit 30.6 % (37.0-47.0); Hemoglobin 10.5 g/dl (12.0-16.0); Mean Corpuscular HGB Conc 34.3 g/dl (31.0-35.0); Mean Corpuscular Hemoglobin 28.4 pg (27.0-33.0); Mean Corpuscular Volume 82.7 fL (80.0-98.0); Mean Platelet Volume 11.6 fL (9.4-12.3); Platelet Count 148 X10*3/uL (160-400); Red Cell Distribution Width 13.3 % (11.0-16.0); White Blood Count 14.3 X10*3/uL (4.8-10.8)
[2024-09-22 09:30] LABS: SLIDE REVIEW MANUAL DIFF
[2024-09-22 09:34] LABS: Band Neutrophils Percent 9 % (3-5); Lymphocytes Absolute Manual 0.3 X10*3/uL (1.2-4.9); Lymphocytes Percent Manual 2 % (20-40); Monocytes Absolute Manual 1.3 X10*3/uL (0.1-1.2); Monocytes Percent Manual 9 % (2-11); Neutrophils Absolute Manual 12.7 X10*3/uL (2.0-8.3); Neutrophils Percent Manual 80 % (45-73); Platelet Estimate NORMAL (NORMAL); Platelet Morphology Comment NORMAL; RBC Morphology NORMAL
[2024-09-22 09:41] LABS: Appearance Urine Turbid; Color Urine Yellow; Glucose Urine UA Negative (Negative); Leukocyte Esterase Urine Large (3+) (Negative); Nitrite Urine Positive (Negative); PH 5.5 (5.0-9.0); Specific Gravity - Urine 1.015 (1.005-1.025); UMIC TRIGGER UACC YES; Urine Blood Large (3+) (Negative); Urine Ketones Trace mg/dL (Negative); Urine Protein 100 (2+) mg/dL (Neg-Trace)
[2024-09-22 09:53] LABS: Bacteria Urine 4+ (None Seen); Hyaline Casts Urine 0-2 /LPF (0-2); UACC Culture Trigger YES; WBC Urine >50 /HPF (0-5)
[2024-09-22] MEDS: cephALEXin 500 MG CAPSULE 1000 MG PO (10:36)
[2024-09-22 10:44] VITALS: BP 109/47; PULSE 86; RESP 18; TEMP 37.1; O2SAT 96
== END 2024-09-22 11:27 | disposition home or self-care (01) ==
PROVIDERS: Emergency Provider Emergency Medicine; PCP Internal Medicine
DX: N39.0 Urinary tract infection, site not specified (principal); R31.9 Hematuria, unspecified; R11.2 Nausea with vomiting, unspecified; R42 Dizziness and giddiness; Z79.899 Other long term (current) drug therapy
CPT/HCPCS: 36415; 71046; 80053; 81001; 83690; 83735; 84484; 85007; 85025; 85027; 87086; 87088; 87186; 93005; 96361; 96374; 96375; 99284; J1308; J2405

== ENCOUNTER → 2024-09-22 08:05 | Outpatient (BNV) | payer OTHER, SELFPAY | PROVIDERS: Emergency Provider Emergency Medicine; PCP Internal Medicine; Visit Provider Radiology Diagnostic Radiology | DX: R53.1 Weakness (principal) | CPT/HCPCS: 71046 ==

== ENCOUNTER → 2024-09-22 08:05 | Outpatient (BNV) | payer OTHER, SELFPAY | PROVIDERS: Emergency Provider Emergency Medicine; PCP Internal Medicine; Visit Provider Internal Medicine Cardiovascular Disease | DX: R53.1 Weakness (principal) | CPT/HCPCS: 93010 ==

== ENCOUNTER 2024-10-27 13:58 | Outpatient (REF) | payer OTHER, SELFPAY ==
--- OUTSIDE RECORDS SUMMARY | 2024-10-27 14:27 | XMS_ITS | Clinical Summary ---
Author Organization [facility] ity Address [address] [place] [address] Care Team Providers Care Toll Collector Name Role Phone Unavailable Primary Care Provider [...]
== END 2024-10-27 13:59 | disposition home or self-care (01) ==
LOC: HO.MAMMO 13:58
PROVIDERS: PCP Internal Medicine; Visit Provider Internal Medicine
DX: Z12.31 Encounter for screening mammogram for malignant neoplasm of breast (principal)
CPT/HCPCS: 77063; 77067

== ENCOUNTER → 2024-10-27 14:30 | Outpatient (BNV) | payer OTHER, SELFPAY | PROVIDERS: PCP Internal Medicine; Visit Provider Internal Medicine | DX: Z12.31 Encounter for screening mammogram for malignant neoplasm of breast (principal) | CPT/HCPCS: 77063; 77067 ==

== ENCOUNTER 2024-11-07 13:15 | Outpatient (REF) | payer OTHER, SELFPAY ==
--- NOTE | ~2024-11-07 | XR_ITS ---
CLINICAL HISTORY: M25.551 - Pain in right hip --- Additional Notes or Special Instructions: w pelvis Radiographs of the pelvis and righthip, 3 views Comparison: 07/06/22 Findings: No fracture or dislocation. Mild degenerative change of the right hip and within the pelvis. Severe lower lumbar degenerative change. Enthesophyte at the right greater trochanter, unchanged. Vascular calcifications. Surgical clips in the pelvis. Bone mineralization is decreased. Soft tissue calcifications. No soft tissue swelling. Impression: No acute findings. Mild degenerative change of the right hip. This document has been electronically signed by: Tami Fitch MD on 11/08/2024 15:47:02
--- OUTSIDE RECORDS SUMMARY | 2024-11-07 13:55 | XMS_ITS | Clinical Summary ---
Author Organization [facility] ity Address [address] [place] [address] Care Team Providers Care Electronics Supervisor Name Role Phone Unavailable Primary Care Provider [...] Vaccines (1 of 2) 2013 COVID-19 Vaccine (1 - 2023-2 5 season) 2024 Influenza Vaccine (#1) 2025 RSV Immunization Adult Patie nts (1 [...] 5 Years) and At-Risk Patients (6 to 49 Years) Aged Out No longer eligible b ased on patient's age to complete this topic RSV Immunization Patients Un josefina 20 months Aged Out No longer eligible b ased on patient's age to complete this topic Varicella Vaccines Aged Out No longer eligible based on patient's age to complete this topic
== END 2024-11-07 13:16 | disposition home or self-care (01) ==
LOC: HO.HOSX 13:15
PROVIDERS: Visit Provider Physician Assistant
DX: M19.011 Primary osteoarthritis, right shoulder (principal); M25.551 Pain in right hip
CPT/HCPCS: 20610; 73502; 99212; J1010; J2003

== ENCOUNTER 2024-11-07 14:16 | Outpatient (AMB) | payer OTHER, SELFPAY ==
--- NOTE | 2024-11-07 14:54 | MHC.OFFVIS ---
Vital Signs 11/07/24 14:59 Height 5 ft 1 in Weight 171 lb BMI 32.3 Intake Visit Reasons: OV- Right hip pain, last inj 07/06/22 Intake Note: Marisol is a 59 year old female who presents today for a follow up of right hip pain, last injection on 07/06/22. Patient reports injection provided her with relief for a while, her pain returned about 2 months ago. Finds little relief with Aleve. She would like to discuss repeating injection. Allergies No Known Allergies (No Known Allergies*) Allergy (Verified 11/07/24 14:59) Medication List - Last Reconciled 11/07/24 by Romana Lance PA-C [Adult pull-ups Use As directed NS] amlodipine 2.5 mg See Protocol PO DAILY atorvastatin 80 mg PO BEDTIME 3 months blood sugar diagnostic (FreeStyle Lite Strips) test blood sugar twice a day blood sugar diagnostic (FreeStyle Lite Strips) Check fasting blood sugar twice a day before meals blood-glucose meter (FreeStyle Lite Meter kit) Three times a day cholecalciferol (vitamin D3) 1,250 mcg PO QWEEK 3 months [diaphers As directed NS] dulaglutide 1.5 mg (0.5 mL) subcut QWEEK 30 days ezetimibe 10 mg PO DAILY [Hand-held shower Use As directed NS] ibuprofen 600 mg PO BID PRN lancing device As directed lisinopril-hydrochlorothiazide 10-12.5 mg 1 tab PO DAILY meclizine 12.5 mg PO TID PRN 5 days metformin 500 mg PO DAILY miscellaneous medical supply Use As directed NS ondansetron 4 mg PO Q8H PRN [Raised toilet seat As directed NS] [Re-usable bed pads Use As directed NS] tizanidine 2 mg PO BEDTIME PRN [To [facility] .?Occupational Therapy evaluation for functional community mobility. NS] HPI HPI OV- Right hip pain, last inj 07/06/22: Details: A 59-year-old female returns to the office today 2 years status post right hip injection. She states she has been doing well and able to participate in most activities without pain up until recently. She has discomfort with sleeping on the right side and pain with prolonged standing. [facility] Medical History Hx of cancer of uterus Diabetes mellitus with retinopathy History of CVA with residual deficit Atherosclerotic cardiovascular disease History of stroke Intracranial atherosclerosis Normocytic normochromic anemia Cancer History of degenerative joint disease GERD (gastroesophageal reflux disease) Sleep apnea Asthma Depression Vitamin D deficiency Tubular adenoma of colon Essential hypertension Dyslipidemia Type 2 diabetes mellitus without complication, without long-term current use of insulin Surgical History Hx of hand surgery History of carpal tunnel release Hx of endoscopy Hx of colonoscopy Hx of cholecystectomy History of total abdominal hysterectomy Family History Father Cancer Mother Cancer Myocardial infarction Family/Other Diabetes Social History Household Members: Spouse Housing: Apartment Do you presently have visiting nurse or other home services: Yes Alcohol intake: never Patient Tobacco Use Status: Never used Tobacco e-Cigarette/Vaping Use: Never Used Second Hand Smoke Exposure: No Advance Directives Date on File: 01/20/21 service: No Current occupational status: disabled Current occupation: rt handed Cognitive needs: No Hearing needs: No Vision needs: No Review of Systems Const All systems reviewed & are unremarkable except as noted in HPI and below Physical Exam Vital Signs: BMI result Body Mass Index 32.3 Const General: cooperative and no acute distress Orientation/consciousness: patient oriented x3 Resp Effort & Inspection: normal respiratory effort and able to speak in complete sentences Cardio Peripheral pulses: Peripheral pulses 2+ throughout Neuro General: patient oriented x3 Extrem Other: right hip normal to inspection. No pain with ROM of the hip. Pain along the greater trochanter. No pain with hip flexion or abduction.There is tenderness along the si joint, Negative SLR. NVI. Office Procedures AMB Joint Injection/Aspiration Joint Injection/Aspiration Details: rt hip bursa Prep: site was prepped using aseptic technique, ethochloride spray was applied and injection warnings given Injected: 40 mg of, DepoMedrol, with 8 mL of and 1% plain lidocaine Coding 43253 - Glenohumeral/Tronchanteric Bursa/Intraarticular Procedure code (CPT) selection complete Results Reviewed Results Reviewed: Xrays were obtained in the office today and personally reviewed by me of the right hip show mild oa Assessment & Plan Assessment & Plan (1) Osteoarthritis of right shoulder: Code(s): M19.011 - Primary osteoarthritis, right shoulder Category: Medical Plan: Depo Medrol 40mg injection given today in right hip, which was tolerated well. Recommended rest, ice and elevation and OTC antiinflammatories prn for discomfort. We also discussed their diabetes and the effect the steroid can have on their blood glucose levels; therefore, they will continue to monitor these very closely over the next 72 hours. If symptoms persist over the next 4-6 weeks, they will contact our office, otherwise, prn. Orders: Orders XR hip RT min 2V Today M25.551 - Pain in right hip Coding Level of Care Code Est Pt Level 3 (23568) Complex EM visit Add On G2211 Diagnoses Osteoarthritis of right shoulder M19.011 CPT Codes Coding - Joint 7: 39202 - Glenohumeral/Tronchanteric Bursa/Intraarticular ([id number])
[2024-11-07 14:59] VITALS: BMI 32.3
== END 2024-11-07 16:36 | disposition home or self-care (01) ==
LOC: HO.HOS 14:16
PROVIDERS: PCP Internal Medicine; Visit Provider Physician Assistant
DX: M19.011 Primary osteoarthritis, right shoulder (principal)
CPT/HCPCS: 20610; 99213

== ENCOUNTER → 2024-11-07 14:18 | Outpatient (BNV) | payer OTHER, SELFPAY | PROVIDERS: Visit Provider Radiology Diagnostic Radiology | DX: M25.551 Pain in right hip (principal) | CPT/HCPCS: 73502 ==

== ENCOUNTER 2024-11-25 11:43 | Emergency (ER) | payer OTHER, SELFPAY ==
[2024-11-25 11:50] VITALS: BP 152/72; BP 167/83; PULSE 78; PULSE 81; RESP 16; TEMP 36.8; O2SAT 96; O2SAT 97; BMI 31.2
--- NOTE | 2024-11-25 11:53 | ED.DIZZY ---
HPI - Dizziness General Chief Complaint: Abdominal Pain Stated Complaint: NAUSEA,DIZZY X4D PER EMS Time Seen by Provider: 11/25/24 11:53 Source: patient and EMS Mode of arrival: EMS Limitations: no limitations History of Present Illness ED Provider: mariaelena harrell np HPI Narrative: Patient is a 59-year-old female past medical history diabetes with retinopathy, history of CVA with left-sided deficit, ASCVD, GERD, asthma, hypertension, dyslipidemia, history of uterine cancer total abdominal hysterectomy who presents emergency department for evaluation. She reports over the past 4 days she has been experiencing dizziness described as a room spinning sensation that is constant in nature reportedly not impacted by position change or head movement associated nausea but no vomiting, and epigastric abdominal pain. She states that she has been seen in this emergency department for these symptoms in the past. She also states that she is having dysuria with associated urinary frequency. She denies any lower abdominal pain, back pain, hematuria. Denies any abnormal vaginal discharge or bleeding. No associated chest pain, shortness of breath, vision changes, neck pain, recent fall or injury, tinnitus, pedal edema. Related Data Previous Rx's ?Medication ?Instructions ?Recorded To [facility] #1 ea 04/06/23 blood sugar diagnostic (FreeStyle #100 ea 04/17/23 Lite Strips) blood-glucose meter (FreeStyle #1 ea 04/18/23 Lite Meter kit) lancing device #1 ea 04/18/23 tizanidine 2 mg capsule 2 mg PO BEDTIME PRN muscle 05/25/23 spasticity #10 caps Adult pull-ups #150 ea 05/17/24 Hand-held shower #1 ea 05/17/24 Raised toilet seat #1 ea 05/17/24 Re-usable bed pads #4 ea 05/17/24 diaphers #100 ea 05/17/24 miscellaneous medical supply #1 ea 05/17/24 lisinopril 10 1 tab PO DAILY #90 tabs 08/01/24 mg-hydrochlorothiazide 12.5 mg tablet cholecalciferol (vitamin D3) 1,250 1,250 mcg PO QWEEK 3 months #13 08/28/24 mcg (50,000 unit) capsule caps dulaglutide 1.5 mg/0.5 mL 1.5 mg (0.5 mL) subcut QWEEK 30 09/07/24 subcutaneous pen injector days #2 mL metformin 500 mg tablet 500 mg PO DAILY #90 tabs 09/07/24 meclizine 12.5 mg tablet 12.5 mg PO TID PRN vertigo 5 days 09/22/24 #20 tabs ondansetron 4 mg disintegrating 4 mg PO Q8H PRN nausea and 09/22/24 tablet vomiting #4 tabs amlodipine 2.5 mg tablet 2.5 mg PO DAILY #90 tabs 10/02/24 atorvastatin 80 mg tablet 80 mg PO BEDTIME 3 months #90 tabs 10/02/24 blood sugar diagnostic (FreeStyle #100 ea 10/02/24 Lite Strips) ezetimibe 10 mg tablet 10 mg PO DAILY #90 tabs 10/02/24 ibuprofen 600 mg tablet 600 mg PO BID PRN for pain #40 tabs 10/02/24 cefuroxime axetil 500 mg tablet 500 mg PO BID #14 tabs 11/25/24 sucralfate 1 gram tablet (Carafate) 1 g PO BID #20 tabs 11/25/24 Allergies Allergy/AdvReac Type Severity Reaction Status Date / Time No Known Allergies (No Known Allergy Verified 11/25/24 11:58 Allergies*) Review of Systems Review of Systems: Yes all other systems are reviewed and are negative PMFSH Past Medical History Attestation statement: The following information was validated with the patient. Source: old records reviewed Medical History Hx of cancer of uterus Diabetes mellitus with retinopathy History of CVA with residual deficit Atherosclerotic cardiovascular disease History of stroke Intracranial atherosclerosis Normocytic normochromic anemia Cancer History of degenerative joint disease GERD (gastroesophageal reflux disease) Sleep apnea Asthma Depression Vitamin D deficiency Tubular adenoma of colon Essential hypertension Dyslipidemia Type 2 diabetes mellitus without complication, without long-term current use of insulin Surgical History Hx of hand surgery History of carpal tunnel release Hx of endoscopy Hx of colonoscopy Hx of cholecystectomy History of total abdominal hysterectomy Family History Family History Father Cancer Mother Cancer Myocardial infarction Family/Other Diabetes Social History Social History Household Members: Spouse Housing: Apartment Do you presently have visiting nurse or other home services: Yes Alcohol intake: never Patient Tobacco Use Status: Never used Tobacco Smoked in Last 30 Days: No e-Cigarette/Vaping Use: Never Used Second Hand Smoke Exposure: No Use of substances other than those prescribed or required for medical reasons: No Advance Directives: Yes Advance Directives on File: Yes Advance Directives Date on File: 01/20/21 service: No Current occupational status: disabled Current occupation: rt handed Cognitive needs: No Hearing needs: No Vision needs: No Physical Exam Vital Signs: Vital Signs: Last Vital Signs Temp 98.1 F 11/25/24 19:26 Pulse 73 11/25/24 19:26 Resp 14 11/25/24 19:26 BP 128/58 L 11/25/24 19:26 Pulse Ox 97 11/25/24 19:26 O2 Del Method Room Air 11/25/24 19:26 BMI result Body Mass Index 31.2 Appearance: Alert.?Oriented to person, place and time. No acute distress.?Normal affect. Head: Normocephalic, atraumatic. No head, sinus or TMJ tenderness.? Eyes: Sclera white, conjunctiva pink. PERRL, 3 mm bilaterally. Visual walsh full to confrontation, EOMi.?No Nystagmus. Ears: Bilateral ear canals clear, TM visible with good cone of light.? Nose: Nasal mucosa pink and moist with midline septum, nares patent bilaterally.? Mouth/ Throat: Oral mucosa pink and moist without lesions. Pharynx normal Neck: Normal inspection.? Neck supple.?? CVS: Heart sounds normal. Normal heart rate and rhythm.? Pulses normal.?? Respiratory: No respiratory distress.? Lung sounds clear to auscultation bilaterally?? Abdomen: Soft and non-tender. Normoactive bowel sounds. No pulsatile mass.?? Skin: Skin warm and dry.? Normal skin color.? Normal skin turgor.?? Extremities: No lower extremity edema. Neuro: No focal neurological deficit observed, CN II-XII intact, normal sensory observed, normal coordination observed. Level of consciousness: Appropriate for age. Motor strength: right upper extremity 5 /5, left upper extremity 5 /5, right lower extremity 5 /5, left lower extremity 5 /5.?Speech: Normal, Gait: Normal, Byfpoh-sn-[id number] test: Normal, Vztl-zb-[id number] test: Normal. Ambulates with normal steady gait. Course Reevaluation(s) Reevaluation #1: Urinalysis consistent with urinary tract infection for which she will receive initial dose of cefuroxime in the emergency department. After receiving GI cocktail, had symptomatic improvement, resolution of epigastric pain nausea has resolved. reports mild dizziness that persists but is improved will try meclizine. Received call, regarding critical potassium of 2.4, reports no gastrointestinal loss, she has had lack of oral intake given her associated nausea, may additionally be secondary to hydrochlorothiazide usage. Patient will receive potassium chloride total of 40 mEq IV in addition to 60 mEq p.o. Reevaluation #2: Patient signed out to Josafat SANCHEZ pending repeat chemistry for improvement in hypokalemia, anticipate discharge home with prescription for cefuroxime and Carafate Time: 19:13 Reevaluation #3: 8:02 PM 11/25/2024 (Josafat SANCHEZ): The patient was signed out to this provider at shift change, in summary the patient is a 59-year-old female presenting to the ED for evaluation of GERD like symptoms which has previously been the presenting complaint for previous UTIs. Patient was found to have a UTI and treated with cefuroxime, however laboratory evaluation also showed hypokalemia of 2.4. Patient received IV and p.o. repletion and was signed out pending repeat potassium level. The patient's repeat potassium level has now resulted and is 3.8. Per care plan discussed at sign-out, the patient will be discharged with Carafate for GERD symptoms, and cefuroxime for UTI. Medications Administered Discontinued Medications Generic Name Dose Route Start Last Admin Trade Name Freq PRN Reason Stop Dose Admin Al Hydroxide/Mg Hydroxide 30 ml 11/25/24 12:00 11/25/24 12:13 Magnesium Hydrox/Alum Hydrox 30 Ml Oral.Susp PO 11/25/24 12:01 30 ml ONCE ONE Administration Cefuroxime Axetil 500 mg 11/25/24 13:41 11/25/24 13:48 Cefuroxime Axetil 500 Mg Tablet PO 11/25/24 13:42 500 mg ONCE ONE Administration Famotidine 20 mg 11/25/24 12:00 11/25/24 12:13 Famotidine 20 Mg Tablet PO 11/25/24 12:01 20 mg ONCE ONE Administration Potassium Chloride 10 meq in 100 mls @ 100 mls/hr 11/25/24 14:15 11/25/24 19:13 Potassium Chloride/H20 IV 11/25/24 18:14 Infused Q1H BUSTER Infusion Lidocaine HCl 15 ml 11/25/24 12:00 11/25/24 12:12 Lidocaine Hcl Viscous 2 % 15 Ml Solution MUCOUS MEM 11/25/24 12:01 15 ml ONCE ONE Administration Meclizine HCl 12.5 mg 11/25/24 14:09 11/25/24 14:35 Meclizine Hcl 12.5 Mg Tablet PO 11/25/24 14:10 12.5 mg ONCE ONE Administration Ondansetron HCl 4 mg 11/25/24 12:00 11/25/24 12:13 Ondansetron Odt 4 Mg Tab.Rapdis TRANSLINGU 11/25/24 12:01 4 mg ONCE ONE Administration Potassium Chloride 60 meq 11/25/24 14:06 11/25/24 14:36 Potassium Chloride Packet 20 Meq Packet PO 11/25/24 14:07 60 meq ONCE ONE Administration Medical Decision Making Medical Decision Making MDM Narrative: Patient is a 59-year-old female past medical history diabetes with retinopathy, history of CVA with left-sided deficit, ASCVD, GERD, asthma, hypertension, dyslipidemia, history of uterine cancer total abdominal hysterectomy who presents emergency department for evaluation of 4 days with dizziness, nausea, epigastric abdominal pain, and dysuria as per HPI. She has baseline left-sided residual deficit from prior CVA which by her account is not changed from baseline, does not appear to have acute neurological deficit on examination. She has mild tenderness over the epigastrium otherwise a benign abdominal examination. No CVA tenderness. No spontaneous or gaze evoked nystagmus, no ataxia, no diplopia, no dysarthria or dysphagia. Will obtain CBC to evaluate for leukocytosis/ anemia, CMP to evaluate for abnormal electrolytes /abnormal renal function/ abnormal hepatic function, EKG and troponin to evaluate for ischemia/ACS. On review of her medical record she has had similar presentations in the past has received GI cocktail, as well as treatment for urinary tract infection. Does not appear as though she has received meclizine in the past. Symptoms are not exacerbated with head movement or position change, lower suspicion for BPPV at this time. Lower suspicion for posterior circulation stroke. Differential Diagnosis Differential Diagnoses: The differential diagnosis associated with the presentation includes (See narrative above) Admission/Observation Consideration of admission/observation: Escalation of care including admission/observation considered Lab Data MDM Lab Attestation statement: I reviewed the patient's lab results. 11/25/24 12:11 11/25/24 19:30 Labs: Lab Results 11/25/24 11/25/24 11/25/24 Range/Units 12:11 13:11 19:30 WBC 13.1 H (4.8-10.8) X10*3/uL RBC 3.40 L (4.20-5.50) X10*6/uL Hgb 9.6 L (12.0-16.0) g/dl Hct 27.5 L (37.0-47.0) % MCV 80.9 (80.0-98.0) fL MCH 28.2 (27.0-33.0) pg MCHC 34.9 (31.0-35.0) g/dl RDW 15.4 (11.0-16.0) % Plt Count 243 D (160-400) X10*3/uL MPV 11.2 (9.4-12.3) fL Immature Gran % (Auto) 0.8 H (0.0-0.4) % Neut % (Auto) 81.0 H (45-73) % Lymph % (Auto) 8.6 L (20-40) % [place] % (Auto) 9.2 (2-11) % Eos % (Auto) 0.2 (0-4) % Baso % (Auto) 0.2 (0-2) % Lymph # (Auto) 1.1 L (1.2-4.9) X10*3/uL [place] # (Auto) 1.2 (0.1-1.2) X10*3/uL Eos # (Auto) 0.0 (0.0-0.4) X10*3/uL Baso # (Auto) 0.0 (0.0-0.2) X10*3/uL Abs Immat Gran (auto) 0.11 H (0.00-0.03) X10*3/uL Absolute Neuts (auto) 10.6 H (2.0-8.3) x10*3/uL Absolute Nucleated RBC 0.000 (0.0-0.012) X10*3/uL Nucleated RBC % (auto) 0.0 (0.0-0.2) /100WBC VBG pH (7.32-7.43) VBG pCO2 mmHg VBG pO2 mmHg VBG HCO3 (22-26) mmol/L VBG O2 Saturation % VBG Base Excess mmol/L Sodium 140 137 (135-145) mmol/L Potassium 2.4 L* 3.8 D (3.3-5.1) mmol/L Chloride 102 105 (96-108) mmol/L Carbon Dioxide 27 26 (22-29) mmol/L Anion Gap 13 10 L (12-20) BUN 31 H 26 H (9-16) mg/dL Creatinine 1.26 1.02 (0.5-1.4) mg/dL Estim Creat Clear Calc 45.1 55.7 Estimated GFR 43 55 Random Glucose 177 H 194 H (60-115) mg/dL Calcium 9.0 D 8.4 D (8.4-10.2) mg/dL Total Bilirubin 0.4 (0.0-1.0) mg/dL AST 17 (5-31) U/L ALT 12 (0-31) U/L Alkaline Phosphatase 134 H (39-117) U/L Troponin I High Sens 4.9 (<3.5-17.0) ng/L Total Protein 7.1 (6.5-8.0) g/dL Albumin 3.0 L (3.5-5.0) g/dL Lipase 14 (8-78) U/L Urine Color Yellow Urine Appearance Cloudy Urine pH 5.5 (5.0-9.0) Ur Specific [place] 1.015 (1.005-1.025) Urine Protein 30 (1+) H (Neg-Trace) mg/dL Urine Glucose (UA) 100 H (Negative) mg/dL Urine Ketones Negative (Negative) mg/dL Urine Blood Small (1+) H (Negative) Urine Nitrite Negative (Negative) Ur Leukocyte Esterase Moderate (2+) H (Negative) Urine RBC 3-5 H (0-2) /HPF Urine WBC 11-20 (0-5) /HPF Ur Squamous Epith Cells 0-2 (0-2) /HPF Urine Bacteria 4+ (None Seen) Hyaline Casts 6-10 (0-2) /LPF Influenza Type A (PCR) NEGATIVE (Negative) Influenza Type B (PCR) NEGATIVE (Negative) RSV RNA Qual (PCR) NEGATIVE (Negative) SARS-CoV-2 RNA (RT-PCR) NEGATIVE (Negative) 11/25/24 Range/Units 19:36 WBC (4.8-10.8) X10*3/uL RBC (4.20-5.50) X10*6/uL Hgb (12.0-16.0) g/dl Hct (37.0-47.0) % MCV (80.0-98.0) fL MCH (27.0-33.0) pg MCHC (31.0-35.0) g/dl RDW (11.0-16.0) % Plt Count (160-400) X10*3/uL MPV (9.4-12.3) fL Immature Gran % (Auto) (0.0-0.4) % Neut % (Auto) (45-73) % Lymph % (Auto) (20-40) % [place] % (Auto) (2-11) % Eos % (Auto) (0-4) % Baso % (Auto) (0-2) % Lymph # (Auto) (1.2-4.9) X10*3/uL [place] # (Auto) (0.1-1.2) X10*3/uL Eos # (Auto) (0.0-0.4) X10*3/uL Baso # (Auto) (0.0-0.2) X10*3/uL Abs Immat Gran (auto) (0.00-0.03) X10*3/uL Absolute Neuts (auto) (2.0-8.3) x10*3/uL Absolute Nucleated RBC (0.0-0.012) X10*3/uL Nucleated RBC % (auto) (0.0-0.2) /100WBC VBG pH 7.43 (7.32-7.43) VBG pCO2 43 mmHg VBG pO2 30 mmHg VBG HCO3 29 H (22-26) mmol/L VBG O2 Saturation 46.0 % VBG Base Excess 5.1 mmol/L Sodium (135-145) mmol/L Potassium (3.3-5.1) mmol/L Chloride (96-108) mmol/L Carbon Dioxide (22-29) mmol/L Anion Gap (12-20) BUN (9-16) mg/dL Creatinine (0.5-1.4) mg/dL Estim Creat Clear Calc Estimated GFR Random Glucose (60-115) mg/dL Calcium (8.4-10.2) mg/dL Total Bilirubin (0.0-1.0) mg/dL AST (5-31) U/L ALT (0-31) U/L Alkaline Phosphatase (39-117) U/L Troponin I High Sens (<3.5-17.0) ng/L Total Protein (6.5-8.0) g/dL Albumin (3.5-5.0) g/dL Lipase (8-78) U/L Urine Color Urine Appearance Urine pH (5.0-9.0) Ur Specific [place] (1.005-1.025) Urine Protein (Neg-Trace) mg/dL Urine Glucose (UA) (Negative) mg/dL Urine Ketones (Negative) mg/dL Urine Blood (Negative) Urine Nitrite (Negative) Ur Leukocyte Esterase (Negative) Urine RBC (0-2) /HPF Urine WBC (0-5) /HPF Ur Squamous Epith Cells (0-2) /HPF Urine Bacteria (None Seen) Hyaline Casts (0-2) /LPF Influenza Type A (PCR) (Negative) Influenza Type B (PCR) (Negative) RSV RNA Qual (PCR) (Negative) SARS-CoV-2 RNA (RT-PCR) (Negative) Independent Interpretation I performed an independent interpretation of an: EKG (ECG reveals normal sinus rhythm with a ventricular rate of 68, EARLINE, QTC 427 MS, no ST-T elevation) Independent Historian Clinical information obtained from an independent historian. History obtained from or confirmed by: EMS External Record Review External record reviewed: Outpatient record Chronic Conditions Patient?s care impacted by: Other (See narrative above) Critical Care Time Critical Care Time Critical Care Time: Yes Total Critical Care Time: 36 Attestation: Time is exclusive of separately billable procedures. Time includes: direct patient care, patient reassessment, coordination of patient care, interpretation of data (laboratory data, pulse oximetry, arterial blood gases and chest xrays), review of patient's medical records, medical consultation and documentation of patient care. Procedures excluded from critical care time: central intravenous line placement and electrocardiography. Discharge Plan Discharge Clinical Impression: Acute hypokalemia Urinary tract infection Qualifiers: Urinary tract infection type: acute cystitis Hematuria presence: without hematuria Qualified Code(s): N30.00 - Acute cystitis without hematuria Gastritis Qualifiers: Gastritis type: unspecified gastritis Chronicity: acute Gastritis bleeding: without bleeding Qualified Code(s): K29.00 - Acute gastritis without bleeding Patient Disposition: Home, Self-Care Instructions: Gastritis (ED), Urinary Tract Infection in Women (ED), Hypokalemia (ED) Additional Instructions: Thank you for choosing [facility]'s Emergency Department for your care today. Your workup today is reassuring, at this time there is no indication for admission to the hospital or continued ED observation, and it is safe to discharge you home. Your workup shows that you are suffering from acid reflux as well as a urinary tract infection, however you also had a very low potassium level. Your potassium was supplemented with oral and IV forms of potassium and the repeat level is back within normal limits. At this time it is safe to discharge you with Carafate for your acid reflux, and the antibiotic cefuroxime for your UTI. Please take cefuroxime as prescribed until it is finished. You may take alternating (staggered) doses of ibuprofen 600mg and Tylenol 1000mg every 4 hours as needed for any additional pain. Please stay well hydrated and get plenty of rest. Please read the attached information regarding high potassium foods. Please follow up with your primary care physician for re-evaluation, additional management of your symptoms, and continued preventative care. If you do not have a primary care physician, please call the [facility] at [phone] to establish a new primary care physician. While waiting to establish your new primary care physician, you can call our [facility] at [phone] for non-emergency needs. Please return to the emergency department if you develop a severe or sudden change in your symptoms, a fever over 100.4 that does not improve with Tylenol or Ibuprofen, recurrent vomiting, or any other new or worsening symptoms or concerns. Prescriptions: New sucralfate [Carafate] 1 gram tablet 1 g PO BID Qty: 20 0RF cefuroxime axetil 500 mg tablet 500 mg PO BID Qty: 14 0RF No Action (DME) To [facility] See Rx Instructions .Route .MEDSUPPLY Qty: 1 0RF Rx Instructions: .?Occupational Therapy evaluation for functional community mobility. (DME) FreeStyle Lite Strips Strip See Rx Instructions .ROUTE .MEDSUPPLY Qty: 100 6RF Rx Instructions: test blood sugar twice a day (DME) blood-glucose meter [FreeStyle Lite Meter] Kit See Rx Instructions .ROUTE .MEDSUPPLY Qty: 1 0RF Rx Instructions: Three times a day (DME) lancing device Misc See Rx Instructions .ROUTE .MEDSUPPLY Qty: 1 0RF Rx Instructions: As directed (DME) miscellaneous medical supply Misc See Rx Instructions .Route Qty: 1 0RF Rx Instructions: Use As directed (DME) Hand-held shower See Rx Instructions .Route .MEDSUPPLY Qty: 1 0RF Rx Instructions: Use As directed (DME) Re-usable bed pads See Rx Instructions .Route .MEDSUPPLY Qty: 4 2RF Rx Instructions: Use As directed (DME) Adult pull-ups large See Rx Instructions .Route .MEDSUPPLY Qty: 150 11RF Rx Instructions: Use As directed (DME) diaphers large See Rx Instructions .Route .MEDSUPPLY Qty: 100 11RF Rx Instructions: As directed (DME) Raised toilet seat See Rx Instructions .Route .MEDSUPPLY Qty: 1 0RF Rx Instructions: As directed lisinopril-hydrochlorothiazide 10-12.5 mg tablet 1 tab PO DAILY Qty: 90 1RF dulaglutide 1.5 mg/0.5 mL pen injector 1.5 mg subcut QWEEK 30 Days Qty: 2 5RF metformin 500 mg tablet 500 mg PO DAILY Qty: 90 1RF atorvastatin 80 mg tablet 80 mg PO BEDTIME 90 Days Qty: 90 1RF ezetimibe 10 mg tablet 10 mg PO DAILY Qty: 90 1RF Rx Instructions: NEED SCHEDULED APPOINTMENT FOR FUTURE REFILLS (DME) FreeStyle Lite Strips Strip See Rx Instructions .Route Qty: 100 5RF Rx Instructions: Check fasting blood sugar twice a day before meals amlodipine 2.5 mg tablet 2.5 mg PO DAILY Qty: 90 1RF Protocol: Hold for SBP< HOLD for SBP < : 90 ibuprofen 600 mg tablet 600 mg PO BID PRN (Reason: for pain) Qty: 40 0RF ondansetron 4 mg tablet,disintegrating 4 mg PO Q8H PRN (Reason: nausea and vomiting) Qty: 4 0RF meclizine 12.5 mg tablet 12.5 mg PO TID PRN (Reason: vertigo) 5 Days Qty: 20 0RF tizanidine 2 mg capsule 2 mg PO BEDTIME PRN (Reason: muscle spasticity) Qty: 10 0RF cholecalciferol (vitamin D3) 1,250 mcg (50,000 unit) capsule 1,250 mcg PO QWEEK 90 Days Qty: 13 0RF Referrals: María Cooper MD [Primary Care Provider, Internal Medicine] Print Language: Nigerian
--- NOTE | 2024-11-25 12:06 | ECG_ITS ---
Test Reason : ABD PAIN Blood Pressure : */* mmHG Vent. Rate : 68 BPM Atrial Rate : 68 BPM P-R Int : 162 ms QRS Dur : 100 ms QT Int : 402 ms P-R-T Axes : 35 24 -10 degrees QTcB Int : 427 ms Normal sinus rhythm with sinus arrhythmia Normal ECG When compared with ECG of 22-Sep-2024 08:10, QRS duration has increased Referred By: Brinda Mercer Electronically Signed By: Pocnho Nieto
[2024-11-25] MEDS: Lidocaine HCl Viscous 2 % 15 ML SOLUTION MUCOUS MEM (12:12)
[2024-11-25] MEDS: Magnesium Hydrox/Alum Hydrox 30 ML ORAL.SUSP PO (12:13)
[2024-11-25 12:17] LABS: MANUAL DIFF FLAG NO
[2024-11-25 12:18] LABS: Hematocrit 27.5 % (37.0-47.0); Hemoglobin 9.6 g/dl (12.0-16.0); Imm Gran Abs Auto 0.11 X10*3/uL (0.00-0.03); Imm Gran Pct Auto 0.8 % (0.0-0.4); Lymphocytes Absolute Auto 1.1 X10*3/uL (1.2-4.9); Mean Corpuscular HGB Conc 34.9 g/dl (31.0-35.0); Mean Corpuscular Hemoglobin 28.2 pg (27.0-33.0); Mean Corpuscular Volume 80.9 fL (80.0-98.0); NRBC Abs Auto 0.000 X10*3/uL (0.0-0.012); NRBC Pct Auto 0.0 /100WBC (0.0-0.2); Platelet Count 243 X10*3/uL (160-400); Red Blood Count 3.40 X10*6/uL (4.20-5.50); White Blood Count 13.1 X10*3/uL (4.8-10.8)
[2024-11-25 12:55] LABS: Resp Syncy Virus RNA Qual PCR NEGATIVE (Negative); SARS COV2 PCR INHOUSE NEGATIVE (Negative)
[2024-11-25 13:21] LABS: Appearance Urine Cloudy; Glucose Urine UA 100 mg/dL (Negative); PH 5.5 (5.0-9.0); Specific Gravity - Urine 1.015 (1.005-1.025); UMIC TRIGGER UACC YES
[2024-11-25 13:31] LABS: UACC Culture Trigger YES
[2024-11-25 13:49] LABS: Troponin-I High Sensitivity 4.9 ng/L (<3.5-17.0)
[2024-11-25 14:03] LABS: Alanine Aminotransferase 12 U/L (0-31); Albumin Level 3.0 g/dL (3.5-5.0); Alkaline Phosphatase 134 U/L (39-117); Anion Gap 13 (12-20); Aspartate Amino Transferase 17 U/L (5-31); Blood Urea Nitrogen 31 mg/dL (9-16); Calcium 9.0 mg/dL (8.4-10.2); Carbon Dioxide 27 mmol/L (22-29); Chloride 102 mmol/L (96-108); Creatinine Clr Calc Pharmacy 45.1; Estimated Glomerular Filt Rate 43; Lipase 14 U/L (8-78); Potassium 2.4 mmol/L (3.3-5.1); Sodium 140 mmol/L (135-145); Total Protein 7.1 g/dL (6.5-8.0)
[2024-11-25 14:12] VITALS: BP 150/64; PULSE 67; RESP 19; TEMP 36.6; O2SAT 95
[2024-11-25] MEDS: Potassium Chloride Packet 20 MEQ PACKET 60 MEQ PO (14:36)
[2024-11-25] MEDS: Potassium Chloride/H20 10 MEQ/100 ML PIGGYBACK 100 MEQ IV ×4 (14:37→18:09)
[2024-11-25 17:47] VITALS: PULSE 76; RESP 17; O2SAT 97
--- NOTE | 2024-11-25 19:13 | PC.NURSE ---
IVF and Potassium replacement infused. Patient assisted with ambulation to the restroom and back to ED room. Patient offers no complaints at present, call inman placed within patient's reach. Patient awaiting repeat VBD for chem.
[2024-11-25 19:26] VITALS: BP 128/58; PULSE 73; RESP 14; TEMP 36.7; O2SAT 97
[2024-11-25 19:40] LABS: VBG HCO3 29 mmol/L (22-26); VBG O2 % Saturation 46.0 %
[2024-11-25 19:59] LABS: Anion Gap 10 (12-20); Blood Urea Nitrogen 26 mg/dL (9-16); Calcium 8.4 mg/dL (8.4-10.2); Carbon Dioxide 26 mmol/L (22-29); Chloride 105 mmol/L (96-108); Creatinine Clr Calc Pharmacy 55.7; Estimated Glomerular Filt Rate 55; Potassium 3.8 mmol/L (3.3-5.1); Sodium 137 mmol/L (135-145)
[2024-11-25 20:49] VITALS: BP 151/63; PULSE 75; RESP 16; TEMP 36.7; O2SAT 98
[2024-11-25 21:10] VITALS: BP 151/63; PULSE 75; RESP 16; TEMP 36.7; O2SAT 98
== END 2024-11-25 21:10 | disposition home or self-care (01) ==
PROVIDERS: Nurse Practitioner Family; Emergency Provider Emergency Medicine; PCP Internal Medicine
DX: N30.00 Acute cystitis without hematuria (principal); E87.6 Hypokalemia; K29.00 Acute gastritis without bleeding; R42 Dizziness and giddiness; E11.9 Type 2 diabetes mellitus without complications; I10 Essential (primary) hypertension; E78.5 Hyperlipidemia, unspecified; J45.909 Unspecified asthma, uncomplicated; Z86.73 Personal history of transient ischemic attack (TIA), and cerebral infarction without residual deficits; Z03.818 Encounter for observation for suspected exposure to other biological agents ruled out
CPT/HCPCS: 36415; 80048; 80053; 81001; 82803; 83690; 84484; 85025; 87086; 87088; 87186; 87637; 93005; 96365; 96366; 99285; 99291; J3480

== ENCOUNTER → 2024-11-25 12:06 | Outpatient (BNV) | payer OTHER, SELFPAY | PROVIDERS: Emergency Provider Emergency Medicine; PCP Internal Medicine; Visit Provider Internal Medicine Cardiovascular Disease | DX: R10.9 Unspecified abdominal pain (principal) | CPT/HCPCS: 93010 ==

== ENCOUNTER 2024-12-04 11:03 | Outpatient (REF) | payer OTHER, SELFPAY ==
[2024-12-04 16:17] LABS: MANUAL DIFF FLAG NO
[2024-12-04 16:25] LABS: Hematocrit 34.0 % (37.0-47.0); Hemoglobin 10.9 g/dl (12.0-16.0); Imm Gran Abs Auto 0.04 X10*3/uL (0.00-0.03); Imm Gran Pct Auto 0.4 % (0.0-0.4); Lymphocytes Absolute Auto 1.7 X10*3/uL (1.2-4.9); Mean Corpuscular HGB Conc 32.1 g/dl (31.0-35.0); Mean Corpuscular Hemoglobin 27.3 pg (27.0-33.0); Mean Corpuscular Volume 85.2 fL (80.0-98.0); NRBC Abs Auto 0.000 X10*3/uL (0.0-0.012); NRBC Pct Auto 0.0 /100WBC (0.0-0.2); Platelet Count 338 X10*3/uL (160-400); Red Blood Count 3.99 X10*6/uL (4.20-5.50); White Blood Count 9.5 X10*3/uL (4.8-10.8)
[2024-12-04 16:42] LABS: Alanine Aminotransferase 17 U/L (0-31); Anion Gap 10 (12-20); Aspartate Amino Transferase 31 U/L (5-31); Blood Urea Nitrogen 25 mg/dL (9-16); Calcium 9.3 mg/dL (8.4-10.2); Carbon Dioxide 32 mmol/L (22-29); Chloride 101 mmol/L (96-108); Cholesterol 158 mg/dL (<200); Estimated Glomerular Filt Rate > 60; HDL Cholesterol 38 mg/dL (>40); Iron 88 mcg/dL (30-160); Percent Iron Saturation 32 % (15-50); Potassium 3.3 mmol/L (3.3-5.1); Sodium 140 mmol/L (135-145); Total Iron Binding Capacity 274 mcg/dL (228-428); Triglycerides 140 mg/dL (<150); Unsaturated Iron Binding 186 ug/dL
== END 2024-12-04 11:04 | disposition home or self-care (01) ==
LOC: HO.HMGCLDS 11:03
PROVIDERS: PCP Internal Medicine; Visit Provider Internal Medicine
DX: E55.9 Vitamin D deficiency, unspecified (principal); E78.5 Hyperlipidemia, unspecified; I10 Essential (primary) hypertension; E11.3553 Type 2 diabetes mellitus with stable proliferative diabetic retinopathy, bilateral; D50.9 Iron deficiency anemia, unspecified; L60.8 Other nail disorders; Z86.0101 Personal history of adenomatous and serrated colon polyps
CPT/HCPCS: 36415; 80048; 80061; 82306; 83036; 83540; 84450; 84460; 85025; 99212

== ENCOUNTER 2024-12-04 11:03 | Outpatient (AMB) | payer OTHER, SELFPAY ==
--- OUTSIDE RECORDS SUMMARY | 2024-12-04 12:03 | XMS_ITS | Clinical Summary ---
Author Organization [facility] Address [address] [place] [phone] Phone Care Team Providers Care Instructor Watch Assembly Name Role Phone Unknown, Unknown Primary Care Provider Pam king Social History Tobacco Use Types Packs/Day Years Used Date Smoking Tobacco: Never Assessed Education Answer Date Recorded Are you interested in more education? Not on sammie e 08/28/2022 Are you concerned about learning? Not on file 08/28/2022 No 08/28/2022 No 08/28/2022 Digital Access Answer Date Recorded No 09/28/2022 No 09/28/2022 No 09/28/2022 Reliable internet access at home? Not on file 09/28/2022 Device with a working camera? Not on file Comments Unknown Sex and Gender Information Value Date Recorded Sex Assigned at Not on file Legal Sex Female 3:42 PM EDT Gender Identity Not on file Sexual Orientation Not on file Plan of Treatment Health Maintenance Due Date Last Done Comments LIPID PANEL 1965 DEPRESSION SCREENING 1975 SMOKING Hx and SMOKELESS TOBACCO SCREENING 1976 HEPATITIS C SCREENING 1981 HIV ONE-TIME SCREENING (18-6 5 YEARS) 1981 PAP SMEAR 1984 MAMMOGRAM 2003 Adult Td,Tdap Booster 05/02/2005 05/02/1995 COLOGUARD 2008 COLONOSCOPY 2008 COLORECTAL CANCER SCREENING 2008 FIT TEST 2008 FOBT 2008 SIGMOIDOSCOPY 2008 VIRTUAL COLONOSCOPY 2008 ZOSTER VACCINES (1 of 2) 2013 PNEUMOCOCCAL VACCINES (50+ years) (2 of 2 - PCV) 08/25/2018 08/25/2017, 12/15/2006, 06/02/2001 COVID-19 VACCINE (3 - 2023-2 5 season) 2024 10/03/2020, 09/05/2020 RSV VACCINE (1 - 1-dose 75+ series) 2038 HEPATITIS A VACCINES Aged Out No long er eligible based on patient's age to complete this topic HIB VACCINES Aged Out No longer eligi ble based on patient's age to complete this topic MENINGOCOCCAL VACCINES (ACWY) Aged Out No longer eligible based on patient's age to complete this topic MENINGOCOCCAL VACCINES (B) Aged Out N o longer eligible based on patient's age to complete this topic Medical Devices Not on file Insurance [employer] MEDICARE PART A & B [facility] ONE CARE MEDICARE REPLACEMENT [employer] [place] [address] MEDICARE PART A & B [facility] ONE CARE MEDICARE REPLACEMENT [employer] MEDICARE PART A & B Member Subscriber Plan / Payer (Ef fective 1988-Present) Name:Alexandra Gonzales Member ID:[id number] Relation to Subscriber:Self Name:Alexandra Gonzales Subscriber ID:[id number] Payer ID:[id number] Group ID:Not on file Type:Medicare Address: [place] [address] ONE CARE MEDICARE REPLACEMENT [facility] [place] [id number] MEDICARE PART A & B [facility] ONE CARE MEDICARE REPLACEMENT [facility] CARE MEDICARE PART A & B [facility] ONE CARE MEDICARE REPLACEMENT [employer] MEDICARE PART A & B [facility] ONE CARE MEDICARE REPLACEMENT [facility] ONE CARE MEDICARE PART A & B [facility] ONE CARE MEDICARE REPLACEMENT [facility] ONE CARE MEDICARE PART A & B [facility] ONE CARE MEDICARE REPLACEMENT [employer] [employer] ONE [employer] MEDICARE PART A & B [facility] ONE CARE MEDICARE REPLACEMENT Care Teams Instructor Watch Assembly Relationship Specialty Start Date End Date Unknown, Unknown, PCP - General 01/01/15 Additional Source Comments The information contained in this document represents components of the legal health record. It is not the complete legal health record.[facility]
--- OUTSIDE RECORDS SUMMARY | 2024-12-04 12:03 | XMS_ITS | Clinical Summary ---
Author Organization [facility] Address [address] [place] [address] Care Team Providers Care Licensed Physical Therapist Name Role Phone Unavailable Primary Care Provider [...] Vaccine (1 - 2023-2 5 season) 2024 Depression Screening 05/03/2024 Influenza Vaccine (#1) 2025 RSV Immunization Adult [...]
--- NOTE | 2024-12-04 12:15 | MHC.PC.OV ---
Vital Signs 12/04/24 12:25 Height 5 ft 1 in Weight 156 lb BMI 29.5 BP 136/64 Blood Pressure Location Rt brachial Position Sitting Respiration 15 Pulse 69 Pulse Source Pulse Oximeter Temp 98.1 F Temp Source Oral Pulse Oximetry (%) 96 Intake Visit Reasons: 3 months f/up Allergies No Known Allergies (No Known Allergies*) Allergy (Verified 12/04/24 12:40) Medication List - Last Reconciled 12/04/24 by María Cooper MD [Adult pull-ups Use As directed NS] amlodipine 2.5 mg See Protocol PO DAILY atorvastatin 80 mg PO BEDTIME 3 months blood sugar diagnostic (FreeStyle Lite Strips) test blood sugar twice a day blood sugar diagnostic (FreeStyle Lite Strips) Check fasting blood sugar twice a day before meals blood-glucose meter (FreeStyle Lite Meter kit) Three times a day cefuroxime axetil 500 mg PO BID cholecalciferol (vitamin D3) 1,250 mcg PO QWEEK 3 months [diaphers As directed NS] dulaglutide 1.5 mg (0.5 mL) subcut QWEEK 30 days ezetimibe 10 mg PO DAILY [Hand-held shower Use As directed NS] ibuprofen 600 mg PO BID PRN lancing device As directed lisinopril-hydrochlorothiazide 10-12.5 mg 1 tab PO DAILY meclizine 12.5 mg PO TID PRN 5 days metformin 500 mg PO DAILY miscellaneous medical supply Use As directed NS ondansetron 4 mg PO Q8H PRN [Raised toilet seat As directed NS] [Re-usable bed pads Use As directed NS] sucralfate (Carafate) 1 g PO BID tizanidine 2 mg PO BEDTIME PRN [To [place] [facility] .?Occupational Therapy evaluation for functional community mobility. NS] Tobacco use date assessed: 08/23/24 Dental Screening Dental Screen Date: 08/23/24 HPI 3 months f/up HPI Details 59 -year-old lady with history of CVA with residual left-sided hemiparesis, diabetes mellitus, dyslipidemia, history of endometrial cancer, obstructive sleep apnea and history of tubular adenoma of colon removed in 2014, here today for follow-up . She was recently seen and treated for acute urinary tract infection and hypokalemia at the ER a week ago, currently still take cefuroxime axetil 500 mg 1 tablet twice a day. She was found to be anemic during last ER visit, [facility] Medical History (Updated 12/04/24 @ 12:51 by María Cooper MD) History of adenomatous polyp of colon Iron deficiency anemia Hx of cancer of uterus Diabetes mellitus with retinopathy History of CVA with residual deficit Atherosclerotic cardiovascular disease History of stroke Intracranial atherosclerosis Normocytic normochromic anemia Cancer History of degenerative joint disease GERD (gastroesophageal reflux disease) Sleep apnea Asthma Depression Vitamin D deficiency Essential hypertension Dyslipidemia Type 2 diabetes mellitus without complication, without long-term current use of insulin Surgical History Hx of hand surgery History of carpal tunnel release Hx of endoscopy Hx of colonoscopy Hx of cholecystectomy History of total abdominal hysterectomy Family History Father Cancer Mother Cancer Myocardial infarction Family/Other Diabetes Social History Household Members: Spouse Housing: Apartment Do you presently have visiting nurse or other home services: Yes Alcohol intake: never Patient Tobacco Use Status: Never used Tobacco e-Cigarette/Vaping Use: Never Used Second Hand Smoke Exposure: No Advance Directives Date on File: 01/20/21 service: No Current occupational status: disabled Current occupation: rt handed Cognitive needs: No Hearing needs: No Vision needs: No Questionnaire Thrive Questionnaire Date Thrive assessed: 08/23/24 HAVEN-7 AMB Questionnaire HAVEN-7 Date HAVEN - 7 assessed: 08/23/24 Source: Developed by Drs. Manish Eckert, Lola Bernard, Enrique Red and colleagues, with an educational jaime from [employer]. Physical exam (Primary Care) Vital Signs: Last Vital Signs Temp 98.1 F 12/04/24 12:25 Pulse 69 12/04/24 12:25 Resp 15 12/04/24 12:25 BP 136/64 12/04/24 12:25 Pulse Ox 96 12/04/24 12:25 BMI result Body Mass Index 29.5 Tobacco/Smoking Status: Tobacco use Status Tobacco use date assessed 08/23/24 12/04/24 12:16 Patient Tobacco Use Status Never used Tobacco 12/04/24 12:16 e-Cigarette/Vaping Use Never Used 12/04/24 12:16 Thrive Assessment: Date of Thrive Assessment Date Thrive assessed 08/23/24 12/04/24 12:16 Results AMB Hemoglobin A1c AMB Hemoglobin A1c 7.3 % Last Edit by Toribio Black CMA on 12/04/24 12:49 Results Reviewed Results Reviewed: Laboratory Last Values Hgb A1c (Clinic) 7.3 % (4.0-6.0) H 12/04/24 12:48 Name: Marisol Newton Age/Sex: 59/F : 1965 Unit#: [id number] Attend Dr: Nevaeh Corey DO Re11/25/24 Status: DEP ER Location: [facility] Disch: SPEC : [id number] [place] 11/25/24 STATUS: COMP REQ : [id number] RECD: 11/25/[address]: Brinda Mercer ION EXCHANGE OPERATOR COMP: 11/25/24 ENTERED: 11/25/[address]: María Cooper MD ORDERED: BMP Test Result Flag Reference Sodium 137 135-145 mmol/L Potassium 3.8 # 3.3-5.1 mmol/L CL 105 96-108 mmol/L CO2 26 22-29 mmol/L Gap 10 L 12-20 BUN 26 H 9-16 mg/dL Creat 1.02 0.5-1.4 mg/dL Estimated CrCl 55.7 Provided height and weight: 157.48 cm, 77.3 kg. eGFR (calculated from the MDRD study equation) and eCrCl (calculated from the Cockcroft-Gault equation) are based on different parameters and may not yield comparable results. If eCrCl result is absurd, please check patient's height/weight. eGFR 55 Chronic Kidney Disease: Estimated GFR < 60 mL/min/1.73m2 Severe Kidney Disease: Estimated GFR < 15 mL/min/1.73m2 Glucose, Random 194 H 60-115 mg/dL CA 8.4 # 8.4-10.2 mg/dL Name: Marisol Newton Age/Sex: 59/F : 1965 Unit#: [id number] Attend Dr: Nevaeh Corey DO Re11/25/24 Status: DEP ER Location: [facility] Disch: SPEC : [id number] [place] 11/25/24 STATUS: COMP REQ : [id number] RECD: 11/25/[address]: Brinda Mercer ION EXCHANGE OPERATOR COMP: 11/25/24 ENTERED: 11/25/[address]: ORDERED: CBC Auto Diff Test Result Flag Reference WBC 13.1 H 4.8-10.8 X10*3/uL RBC 3.40 L 4.20-5.50 X10*6/uL HGB 9.6 L 12.0-16.0 g/dl HCT 27.5 L 37.0-47.0 % MCV 80.9 80.0-98.0 fL MCH 28.2 27.0-33.0 pg MCHC 34.9 31.0-35.0 g/dl RDW 15.4 11.0-16.0 % PLT 243 # 160-400 X10*3/uL MPV 11.2 9.4-12.3 fL Neut Pct Auto 81.0 H 45-73 % ImGran Pct Auto 0.8 H 0.0-0.4 % Lymp Pct Auto 8.6 L 20-40 % [place] Pct Auto 9.2 2-11 % Eos Pct Auto 0.2 0-4 % Baso Pct Auto 0.2 0-2 % NRBC Pct Auto 0.0 0.0-0.2 /100WBC ANC Neut Abs # 10.6 H 2.0-8.3 x10*3/uL ImGran Abs Auto 0.11 H 0.00-0.03 X10*3/uL Lymph Abs Auto 1.1 L 1.2-4.9 X10*3/uL [place] Abs Auto 1.2 0.1-1.2 X10*3/uL Eos Abs Auto 0.0 0.0-0.4 X10*3/uL Baso Abs Auto 0.0 0.0-0.2 X10*3/uL NRBC Abs Auto 0.000 0.0-0.012 X10*3/uL Coding Diagnoses Dyslipidemia E78.5 Essential hypertension I10 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, without long-term current use of insulin E11.3552 Diabetes mellitus intermediate card tender insulin use: without care home use Diabetes mellitus type: type 2 Diabetic retinopathy severity: with proliferative retinopathy Laterality: bilateral Proliferative retinopathy type: stable Iron deficiency anemia D50.9 History of adenomatous polyp of colon Z86.0101 Deformity of toenail L60.8 Assessment & Plan Assessment & Plan (1) Dyslipidemia: Code(s): E78.5 - Hyperlipidemia, unspecified Category: Medical (2) Essential hypertension: Code(s): I10 - Essential (primary) hypertension Category: Medical (3) Diabetes mellitus with retinopathy: Code(s): E11.319 - Type 2 diabetes mellitus with unspecified diabetic retinopathy without macular edema Category: Medical Qualifiers: Diabetes mellitus care home insulin use: without care home use Diabetes mellitus type: type 2 Diabetic retinopathy severity: with proliferative retinopathy Laterality: bilateral Proliferative retinopathy type: stable Qualified Code(s): E11.3553 - Type 2 diabetes mellitus with stable proliferative diabetic retinopathy, bilateral (4) Iron deficiency anemia: Code(s): D50.9 - Iron deficiency anemia, unspecified Category: Medical (5) History of adenomatous polyp of colon: Code(s): Z86.0101 - Personal history of adenomatous and serrated colon polyps Category: Medical (6) Deformity of toenail: Code(s): L60.8 - Other nail disorders Orders: Orders Complete Blood Count Auto Diff Today D50.9 - Iron deficiency anemia, unspecified IRON PROFILE Today D50.9 - Iron deficiency anemia, unspecified AMB Hemoglobin A1c Today Z13.9 - Encounter for screening, unspecified Referrals Gastroenterology Referral D50.9 - Iron deficiency anemia, unspecified, Z86.0101 - Personal history of adenomatous and serrated colon polyps Podiatry Referral E11.3553 - Type 2 diabetes mellitus with stable proliferative diabetic retinopathy, bilateral, L60.8 - Other nail disorders Medications: New ferrous sulfate 325 mg PO DAILY 90 tabs 1RF D50.9 - Iron deficiency anemia, unspecified
[2024-12-04 12:25] VITALS: BP 136/64; PULSE 69; RESP 15; TEMP 36.7; O2SAT 96; BMI 29.5
== END 2024-12-04 12:59 | disposition home or self-care (01) ==
LOC: HO.HMCC 11:03
PROVIDERS: PCP Internal Medicine; Visit Provider Internal Medicine
DX: Z13.9 Encounter for screening, unspecified (principal)

== ENCOUNTER 2024-12-12 14:20 | Inpatient (IN) | payer OTHER, SELFPAY ==
[2024-12-12] VITALS (8 sets, daily range): BP systolic 85–129; BP diastolic 36–58; PULSE 72–117; RESP 17–22; TEMP 37.1–40.1; O2SAT 94–100; BMI 29.2
--- NOTE | ~2024-12-12 | CT_ITS ---
CLINICAL HISTORY: severe abodminal pain, UTI, lactic acidosis CT abdomen and pelvis with contrast Comparison: CT abdomen and pelvis 08/14/2023 Findings: The lung bases are clear. There is new significant enlargement of the left kidney with inhomogeneous hypodensity within the kidney. There is decreased enhancement left kidney compared to right kidney. No hydronephrosis or ureteral dilation. No renal or ureteral calculi. There is significant left perirenal stranding. There is 5 mm cyst upper pole left kidney. There is a left retroaortic renal vein. There are stable right renal cysts. There is again noted prior cholecystectomy. No pancreatic lesions. Normal adrenal glands. There is scattered colonic diverticulosis no diverticulitis. No bowel obstruction, pneumoperitoneum, or pneumatosis. There is mild wall thickening of the bladder. There are moderate atheromatous vascular calcifications. There are multiple intra-abdominal surgical clips likely from prior vascular surgery. No acute fracture. Significant multilevel degenerative changes again noted thoracic and lumbar spine most significant mid and lower lumbar spine. Significant multilevel disc osteophyte complexes, likely small disc protrusions, multilevel multifactorial central canal and foraminal stenoses IMPRESSION: New significant left pyelonephritis the inhomogeneous decreased enhancement is likely secondary to the pyelonephritis can not exclude concomitant renal infarct Mild bladder wall thickening suspicious for cystitis Colonic diverticulosis no diverticulitis Chronic and incidental findings as above This document has been electronically signed by: Manish Chen MD on 12/13/2024 06:20:28
--- NOTE | ~2024-12-12 | XR_ITS ---
CLINICAL HISTORY: fever 1 view chest x-ray Comparison: CR/SR - XR CHEST 2V - 09/22/24 09:[address] - CT CHEST WITH IV CONTRAST - 08/14/23 15:26 EDT Findings: Two films were obtained. No consolidation, pleural effusion or pneumothorax. Heart size is accentuated by portable technique and suboptimal inspiratory effort. No CHF. Prominent left epicardial fat pad. Aortic calcifications. No acute fracture. IMPRESSION: 1. Hypoventilation. 2. No acute cardiopulmonary process. This document has been electronically signed by: Joan Kennedy DO on 12/12/2024 18:48:37
--- NOTE | 2024-12-12 14:22 | ECG_ITS ---
Test Reason : DIZZINESS Blood Pressure : */* mmHG Vent. Rate : 92 BPM Atrial Rate : 92 BPM P-R Int : 150 ms QRS Dur : 82 ms QT Int : 350 ms P-R-T Axes : 59 57 17 degrees QTcB Int : 432 ms Normal sinus rhythm Normal ECG When compared with ECG of 25-Nov-2024 12:16, No significant change was found Referred By: Clemencia Valentine Electronically Signed By: Poncho Nieto
[2024-12-12 14:43] LABS: Glucose, Whole Blood 165 mg/dL (60-115)
[2024-12-12 15:05] LABS: Hematocrit 32.6 % (37.0-47.0); Hemoglobin 10.7 g/dl (12.0-16.0); Imm Gran Abs Auto 0.08 X10*3/uL (0.00-0.03); Imm Gran Pct Auto 0.5 % (0.0-0.4); Lymphocytes Absolute Auto 0.5 X10*3/uL (1.2-4.9); MANUAL DIFF FLAG SCAN; Mean Corpuscular HGB Conc 32.8 g/dl (31.0-35.0); Mean Corpuscular Hemoglobin 28.5 pg (27.0-33.0); Mean Corpuscular Volume 86.7 fL (80.0-98.0); NRBC Abs Auto 0.000 X10*3/uL (0.0-0.012); NRBC Pct Auto 0.0 /100WBC (0.0-0.2); Platelet Count 167 X10*3/uL (160-400); Red Blood Count 3.76 X10*6/uL (4.20-5.50); SCAN SMEAR FLAG 1; White Blood Count 15.2 X10*3/uL (4.8-10.8)
--- NOTE | 2024-12-12 15:12 | ED.GENADULT ---
HPI - General Adult General Chief complaint: Weakness Stated complaint: PT STS DIZZY,LOW BS 187 AFTER OJ PER EMS Time Seen by Provider: 12/12/24 15:00 Source: patient and EMS Mode of arrival: EMS Limitations: no limitations History of Present Illness ED Provider: Dr. Laura Rasmussen HPI narrative: Patient comes to the emergency room complaining of ?not feeling well. Patient states that earlier today, she was feeling a bit shaky and very called. Patient did not check her blood sugar but thought she was hypoglycemic so she drank a lot of oranges and called EMS. Patient denies chest pain or shortness of breath, denies URI or UTI symptoms. When EMS arrived, patient's blood sugar was 187. Patient states that this time she has a bit of headache and feels cold Related Data Previous Rx's ?Medication ?Instructions ?Recorded To [facility] #1 ea 04/06/23 blood sugar diagnostic (FreeStyle #100 ea 04/17/23 Lite Strips) blood-glucose meter (FreeStyle #1 ea 04/18/23 Lite Meter kit) lancing device #1 ea 04/18/23 tizanidine 2 mg capsule 2 mg PO BEDTIME PRN muscle 05/25/23 spasticity #10 caps Adult pull-ups #150 ea 05/17/24 Hand-held shower #1 ea 05/17/24 Raised toilet seat #1 ea 05/17/24 Re-usable bed pads #4 ea 05/17/24 diaphers #100 ea 05/17/24 miscellaneous medical supply #1 ea 05/17/24 lisinopril 10 1 tab PO DAILY #90 tabs 08/01/24 mg-hydrochlorothiazide 12.5 mg tablet dulaglutide 1.5 mg/0.5 mL 1.5 mg (0.5 mL) subcut QWEEK 30 09/07/24 subcutaneous pen injector days #2 mL metformin 500 mg tablet 500 mg PO DAILY #90 tabs 09/07/24 meclizine 12.5 mg tablet 12.5 mg PO TID PRN vertigo 5 days 09/22/24 #20 tabs ondansetron 4 mg disintegrating 4 mg PO Q8H PRN nausea and 09/22/24 tablet vomiting #4 tabs amlodipine 2.5 mg tablet 2.5 mg PO DAILY #90 tabs 10/02/24 atorvastatin 80 mg tablet 80 mg PO BEDTIME 3 months #90 tabs 10/02/24 blood sugar diagnostic (FreeStyle #100 ea 10/02/24 Lite Strips) ezetimibe 10 mg tablet 10 mg PO DAILY #90 tabs 10/02/24 ibuprofen 600 mg tablet 600 mg PO BID PRN for pain #40 tabs 10/02/24 cefuroxime axetil 500 mg tablet 500 mg PO BID #14 tabs 11/25/24 sucralfate 1 gram tablet (Carafate) 1 g PO BID #20 tabs 11/25/24 cholecalciferol (vitamin D3) 1,250 1,250 mcg PO QWEEK 3 months #13 11/27/24 mcg (50,000 unit) capsule caps ferrous sulfate 325 mg (65 mg 325 mg PO DAILY #90 tabs 12/04/24 iron) tablet Allergies Allergy/AdvReac Type Severity Reaction Status Date / Time No Known Allergies (No Known Allergy Verified 12/12/24 15:25 Allergies*) Review of Systems Review of Systems: Constitutional : No Weight loss, No Fever, No Chills, No Night Sweats, No Fatigue, No Malaise ENT/Mouth : No Hearing loss, No Ear Pain, No Nasal Congestion, No Sinus Pain, No Hoarseness, No sore throat, No Rhinorrhea, No Swallowing Difficulty Eyes: No Eye Pain, No Swelling, No Redness, No Foreign Body, No Discharge, No Vision Changes Cardiovascular : No Chest Pain, No SOB, No Dyspnea on Exertion, No Orthopnea, No Edema, No Palpitations Respiratory : No Cough, No Sputum, No Wheezing, No Smoke Exposure, No Dyspnea Gastrointestinal : No Nausea, No Vomiting, No Diarrhea, No Constipation, No abdominal Pain, No Hematochezia, No Melena Genitourinary : no irregular bleeding, No Dysuria, No Urinary Frequency, No Hematuria, No Urinary Incontinence, No Urgency, No Flank Pain, No Urinary Flow Changes, No Hesitancy Musculoskeletal : No joint pain, No Myalgias, No Joint Swelling Skin : No Skin Lesions, No rash Neuro : No Weakness, No Numbness, No Paresthesias, No Loss of Consciousness, No Dizziness, No Headache Psych : No Anxiety/Panic, No Depression, No SI/HI/AH/VH, No Social Issues, Heme/Lymph: No Bruising, No Bleeding,No Lymphadenopathy Endocrine : No Polyuria, No Polydipsia, patient believes she had hypoglycemia, did not measure her glucose. No Temperature Intolerance PMFSH Past Medical History Medical History History of adenomatous polyp of colon Iron deficiency anemia Hx of cancer of uterus Diabetes mellitus with retinopathy History of CVA with residual deficit Atherosclerotic cardiovascular disease Intracranial atherosclerosis Normocytic normochromic anemia Cancer History of degenerative joint disease GERD (gastroesophageal reflux disease) Sleep apnea Asthma Depression Vitamin D deficiency Essential hypertension Dyslipidemia Type 2 diabetes mellitus without complication, without long-term current use of insulin Surgical History Hx of hand surgery History of carpal tunnel release Hx of endoscopy Hx of colonoscopy Hx of cholecystectomy History of total abdominal hysterectomy Family History Family History Father Cancer Mother Cancer Myocardial infarction Family/Other Diabetes Social History Social History Household Members: Spouse Housing: Apartment Do you presently have visiting nurse or other home services: Yes Alcohol intake: never Patient Tobacco Use Status: Never used Tobacco e-Cigarette/Vaping Use: Never Used Second Hand Smoke Exposure: No Advance Directives: Yes Advance Directives on File: Yes Advance Directives Date on File: 01/20/21 service: No Current occupational status: disabled Current occupation: rt handed Cognitive needs: No Hearing needs: No Vision needs: No Physical Exam ED Exam Exam: Appearance: Alert. Oriented X3. No acute distress. Shivering Eyes: Pupils equal, round and reactive to light. ENT: Pharynx normal. Neck: Normal inspection. Neck supple. No lymph nodes noted. No crepitus CVS: Normal heart rate and rhythm. Pulses normal. Normal S1 and S2 Respiratory: No respiratory distress. Breath sounds normal. No Wheezing. No rales Abdomen: Soft and nontender. No rigidity. No distention. Skin: Skin warm and dry. Normal skin color. Normal skin turgor. Extremities: No lower extremity edema. No Lacerations. No Rash Neuro: Oriented X 3. No motor deficit. No sensory deficit. Moving all extremities. No slurred speech. CN 2 through 12 grossly intact Psych: calm, cooperative, normal affect Vital Signs: Vital Signs - 24 hr 12/12/24 14:30 12/12/24 15:21 12/12/24 18:20 Temperature 98.7 F 104.1 F H Pulse Rate 91 94 117 H Respiratory Rate 18 18 22 H Blood Pressure 129/56 L 129/56 L 98/50 L Pulse Oximetry 95 98 94 Oxygen Delivery Method Room Air Room Air Room Air 12/12/24 19:05 Temperature 102.6 F H Pulse Rate 111 H Respiratory Rate 20 Blood Pressure 115/57 L Pulse Oximetry 94 Oxygen Delivery Method Room Air BMI result Body Mass Index 29.2 Course Course Course Narrative: Patient reports having hypoglycemia based on her symptoms, did not check her sugar. Took orange juice, afterwards blood glucose in the 180s. At this time, patient reports having a headache and feeling cold. Denies any chest pain or shortness of breath, no pain Medications Administered Discontinued Medications Generic Name Dose Route Start Last Admin Trade Name Freq PRN Reason Stop Dose Admin Acetaminophen 975 mg 12/12/24 15:23 12/12/24 16:32 Acetaminophen 325 Mg Tablet PO 12/12/24 15:24 975 mg ONCE ONE Administration Ceftriaxone Sodium 1 gm 12/12/24 18:10 12/12/24 18:19 Ceftriaxone Sodium 1 Gm Vial IVPUSH 12/12/24 18:11 1 gm ONCE ONE Administration Acetaminophen 1,000 mg in 100 mls @ 400 mls/hr 12/12/24 18:10 12/12/24 19:05 Ofirmev IV 12/12/24 18:24 Infused ONCE ONE Infusion Sodium Chloride 1,000 mls @ 999 mls/hr 12/12/24 18:10 12/12/24 19:05 Ns IVCONT 12/12/24 19:10 Infused .Q1H1M ONE Infusion Medical Decision Making Medical Decision Making MDM Narrative: My interpretation of labs: Patient's white blood cell count is 15.2, patient is chronically anemic with a hemoglobin of 10.7, chemistry does not show any significant acute abnormality other than a glucose of 185 Around 18:00, patient started to become agitated, seemed disoriented, requesting to go urinate. Patient was trying to climb out of bed, we tried helping her up to the bathroom but would not get up, a bit pen was offered, eventually patient was able to urinate. Patient's nurse took the rectal temperature, it is now 104.1 F. another IV was placed. Patient getting IV acetaminophen, patient is too agitated to take anything p.o.. Empirically, p patient was given IV ceftriaxone. Patient denies any URI or any UTI symptoms states that she does not have any abdominal pain. Lactic acid and blood cultures have been ordered. At this time, patient's blood pressure is still in the 120s systolic, sepsis not suspected Patient's lactic acid 2.2. Patient was giving IV fluids, ceftriaxone. Urinalysis positive for UTI. Patient denies abdominal or flank pain Patient's seems to be a bit confused but overall states that she feels a bit better. I discussed the patient with our hospitalist Dr. Zapien, patient being admitted Differential Diagnosis Differential Diagnoses: The differential diagnosis associated with the presentation includes (Viral URI, UTI, hypoglycemia) Admission/Observation Consideration of admission/observation: Escalation of care including admission/observation considered Consult Healthcare Provider Management of the patient was discussed with: Hospitalist Lab Data [facility] Lab Attestation statement: I reviewed the patient's lab results. 12/12/24 14:59 12/12/24 14:59 Labs: Lab Results 12/12/24 12/12/24 12/12/24 Range/Units 14:38 14:59 15:25 WBC 15.2 H (4.8-10.8) X10*3/uL RBC 3.76 L (4.20-5.50) X10*6/uL Hgb 10.7 L (12.0-16.0) g/dl Hct 32.6 L (37.0-47.0) % MCV 86.7 (80.0-98.0) fL MCH 28.5 (27.0-33.0) pg MCHC 32.8 (31.0-35.0) g/dl RDW 15.1 (11.0-16.0) % Plt Count 167 D (160-400) X10*3/uL MPV 11.3 (9.4-12.3) fL Immature Gran % (Auto) 0.5 H (0.0-0.4) % Neut % (Auto) 91.1 H (45-73) % Lymph % (Auto) 3.0 L (20-40) % [place] % (Auto) 5.0 (2-11) % Eos % (Auto) 0.1 (0-4) % Baso % (Auto) 0.3 (0-2) % Lymph # (Auto) 0.5 L (1.2-4.9) X10*3/uL [place] # (Auto) 0.8 (0.1-1.2) X10*3/uL Eos # (Auto) 0.0 (0.0-0.4) X10*3/uL Baso # (Auto) 0.0 (0.0-0.2) X10*3/uL Abs Immat Gran (auto) 0.08 H (0.00-0.03) X10*3/uL Absolute Neuts (auto) 13.9 H (2.0-8.3) x10*3/uL Absolute Nucleated RBC 0.000 (0.0-0.012) X10*3/uL Nucleated RBC % (auto) 0.0 (0.0-0.2) /100WBC Smear Tech's Comments VERIFIED Sodium 143 (135-145) mmol/L Potassium 3.8 (3.3-5.1) mmol/L Chloride 105 (96-108) mmol/L Carbon Dioxide 25 (22-29) mmol/L Anion Gap 17 (12-20) BUN 27 H (9-16) mg/dL Creatinine 0.87 (0.5-1.4) mg/dL Estim Creat Clear Calc TNP Estimated GFR > 60 POC Glucose 165 H 172 H (60-115) mg/dL Random Glucose 185 H (60-115) mg/dL Lactic Acid (0.5-2.0) mmol/L Calcium 9.0 (8.4-10.2) mg/dL Magnesium 1.6 (1.6-2.6) mg/dL Total Bilirubin 0.9 (0.0-1.0) mg/dL AST 22 (5-31) U/L ALT 14 (0-31) U/L Alkaline Phosphatase 78 (39-117) U/L Troponin I High Sens < 2.7 (<3.5-17.0) ng/L Total Protein 7.5 (6.5-8.0) g/dL Albumin 3.5 (3.5-5.0) g/dL Urine Color Urine Appearance Urine pH (5.0-9.0) Ur Specific [place] (1.005-1.025) Urine Protein (Neg-Trace) mg/dL Urine Glucose (UA) (Negative) mg/dL Urine Ketones (Negative) mg/dL Urine Blood (Negative) Urine Nitrite (Negative) Ur Leukocyte Esterase (Negative) Urine RBC (0-2) /HPF Urine WBC (0-5) /HPF Ur Squamous Epith Cells (0-2) /HPF Urine Bacteria (None Seen) Hyaline Casts (0-2) /LPF Urine Opiates Screen (Not Detect) Ur Buprenorphine Scrn (Not Detect) ng/mL Ur Oxycodone Screen (Not Detect) ng/mL Urine Methadone Screen (Not Detect) ng/mL Urine Fentanyl Screen (Not Detect) Ur Barbiturates Screen (Not Detect) Ur Phencyclidine Scrn (Not Detect) Ur Amphetamines Screen (Not Detect) U Benzodiazepines Scrn (Not Detect) Urine Cocaine Screen (Not Detect) U Marijuana (THC) Screen (Not Detect) Influenza Type A (PCR) NEGATIVE (Negative) Influenza Type B (PCR) NEGATIVE (Negative) RSV RNA Qual (PCR) NEGATIVE (Negative) SARS-CoV-2 RNA (RT-PCR) NEGATIVE (Negative) 12/12/24 12/12/24 12/12/24 Range/Units 17:44 18:04 18:14 WBC (4.8-10.8) X10*3/uL RBC (4.20-5.50) X10*6/uL Hgb (12.0-16.0) g/dl Hct (37.0-47.0) % MCV (80.0-98.0) fL MCH (27.0-33.0) pg MCHC (31.0-35.0) g/dl RDW (11.0-16.0) % Plt Count (160-400) X10*3/uL MPV (9.4-12.3) fL Immature Gran % (Auto) (0.0-0.4) % Neut % (Auto) (45-73) % Lymph % (Auto) (20-40) % [place] % (Auto) (2-11) % Eos % (Auto) (0-4) % Baso % (Auto) (0-2) % Lymph # (Auto) (1.2-4.9) X10*3/uL [place] # (Auto) (0.1-1.2) X10*3/uL Eos # (Auto) (0.0-0.4) X10*3/uL Baso # (Auto) (0.0-0.2) X10*3/uL Abs Immat Gran (auto) (0.00-0.03) X10*3/uL Absolute Neuts (auto) (2.0-8.3) x10*3/uL Absolute Nucleated RBC (0.0-0.012) X10*3/uL Nucleated RBC % (auto) (0.0-0.2) /100WBC Smear Tech's Comments Sodium (135-145) mmol/L Potassium (3.3-5.1) mmol/L Chloride (96-108) mmol/L Carbon Dioxide (22-29) mmol/L Anion Gap (12-20) BUN (9-16) mg/dL Creatinine (0.5-1.4) mg/dL Estim Creat Clear Calc Estimated GFR POC Glucose 234 H (60-115) mg/dL Random Glucose (60-115) mg/dL Lactic Acid 2.2 H* (0.5-2.0) mmol/L Calcium (8.4-10.2) mg/dL Magnesium (1.6-2.6) mg/dL Total Bilirubin (0.0-1.0) mg/dL AST (5-31) U/L ALT (0-31) U/L Alkaline Phosphatase (39-117) U/L Troponin I High Sens (<3.5-17.0) ng/L Total Protein (6.5-8.0) g/dL Albumin (3.5-5.0) g/dL Urine Color Yellow Urine Appearance Cloudy Urine pH 6.5 (5.0-9.0) Ur Specific [place] 1.015 (1.005-1.025) Urine Protein 100 (2+) H (Neg-Trace) mg/dL Urine Glucose (UA) Negative (Negative) mg/dL Urine Ketones Negative (Negative) mg/dL Urine Blood Trace H (Negative) Urine Nitrite Negative (Negative) Ur Leukocyte Esterase Moderate (2+) H (Negative) Urine RBC 3-5 H (0-2) /HPF Urine WBC >50 H (0-5) /HPF Ur Squamous Epith Cells 0-2 (0-2) /HPF Urine Bacteria 4+ (None Seen) Hyaline Casts 0-2 (0-2) /LPF Urine Opiates Screen Not Detected (Not Detect) Ur Buprenorphine Scrn Not Detected (Not Detect) ng/mL Ur Oxycodone Screen Not Detected (Not Detect) ng/mL Urine Methadone Screen Not Detected (Not Detect) ng/mL Urine Fentanyl Screen Not Detected (Not Detect) Ur Barbiturates Screen Not Detected (Not Detect) Ur Phencyclidine Scrn Not Detected (Not Detect) Ur Amphetamines Screen Not Detected (Not Detect) U Benzodiazepines Scrn Not Detected (Not Detect) Urine Cocaine Screen Not Detected (Not Detect) U Marijuana (THC) Screen Not Detected (Not Detect) Influenza Type A (PCR) (Negative) Influenza Type B (PCR) (Negative) RSV RNA Qual (PCR) (Negative) SARS-CoV-2 RNA (RT-PCR) (Negative) Independent Interpretation I performed an independent interpretation of an: Plain X-Ray Radiology Impression Discussion of test interpretation with radiology: I have reviewed the radiologist's reading. Radiologist Impression: Two films were obtained. No consolidation, pleural effusion or pneumothorax. Heart size is accentuated by portable technique and suboptimal inspiratory effort. No CHF. Prominent left epicardial fat pad. Aortic calcifications. No acute fracture. IMPRESSION: 1. Hypoventilation. 2. No acute cardiopulmonary process. Critical Care Time Critical Care Time Critical Care Time: Yes Total Critical Care Time: 60 Attestation: I have personally provided critical care time. Time includes review of lab data, radiology results, discussion with consultants, and monitoring for potential decompensation. Intervention performed as documented. Discharge Plan Discharge Clinical Impression: Encephalopathy, UTI (urinary tract infection) Patient Disposition: Admitted As Inpatient Print Language: Portuguese
[2024-12-12 15:22] LABS: Alanine Aminotransferase 14 U/L (0-31); Albumin Level 3.5 g/dL (3.5-5.0); Alkaline Phosphatase 78 U/L (39-117); Anion Gap 17 (12-20); Aspartate Amino Transferase 22 U/L (5-31); Blood Urea Nitrogen 27 mg/dL (9-16); Calcium 9.0 mg/dL (8.4-10.2); Carbon Dioxide 25 mmol/L (22-29); Chloride 105 mmol/L (96-108); Estimated Glomerular Filt Rate > 60; Magnesium 1.6 mg/dL (1.6-2.6); Potassium 3.8 mmol/L (3.3-5.1); Sodium 143 mmol/L (135-145); Total Protein 7.5 g/dL (6.5-8.0)
[2024-12-12 15:28] LABS: Glucose, Whole Blood 172 mg/dL (60-115)
[2024-12-12 15:32] LABS: Troponin-I High Sensitivity < 2.7 ng/L (<3.5-17.0)
[2024-12-12 15:41] LABS: Resp Syncy Virus RNA Qual PCR NEGATIVE (Negative); SARS COV2 PCR INHOUSE NEGATIVE (Negative)
--- OUTSIDE RECORDS SUMMARY | 2024-12-12 16:26 | XMS_ITS | Clinical Summary ---
Author Organization [facility] Address [address] [place] [phone] Phone Care Team Providers Care Corner Former Name Role Phone Unknown, Unknown Primary Care [...] topic Medical Devices Not on file Insurance [employer] MEDICARE PART A & B [facility] ONE CARE MEDICARE REPLACEMENT [employer] [place] [place] [address] MEDICARE PART A & B [facility] ONE CARE MEDICARE REPLACEMENT [employer] MEDICARE PART A & B Member Subscriber Plan / Payer (Ef fective 1988-Present) Name:Alexandra Gonzales Member ID:[id number] Relation to Subscriber:Self Name:Alexandra Gonzales Subscriber ID:[id number] Payer ID:[id number] Group ID:Not on file Type:Medicare Address: [place] [address] ONE CARE MEDICARE REPLACEMENT [facility] [id number] MEDICARE PART A & B [facility] ONE CARE MEDICARE REPLACEMENT [facility] CARE MEDICARE PART A & B [facility] ONE CARE MEDICARE REPLACEMENT [employer] MEDICARE PART A & B [facility] ONE CARE MEDICARE REPLACEMENT * Guarantor: Alexandra Gonzales Account Type Relation to Patient Date of Phone Billing Address Personal/Family Self [address] [place] [id number] [facility] ONE CARE MEDICARE PART A & B [facility] ONE CARE MEDICARE REPLACEMENT [facility] ONE CARE MEDICARE PART A & B [facility] ONE CARE MEDICARE REPLACEMENT [employer] ONE CARE MEDICARE PART A & B [facility] ONE CARE MEDICARE REPLACEMENT Care Teams Corner Former Relationship Specialty Start Date End Date Unknown, Unknown, PCP - General 01/01/15 Additional Source Comments The information contained in this document represents components of the legal health record. It is not the complete legal health record.[facility]
--- OUTSIDE RECORDS SUMMARY | 2024-12-12 16:26 | XMS_ITS | Clinical Summary ---
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
--- NOTE | 2024-12-12 17:40 | MHC.EDTECH ---
pt seem uncomfortable positioned on the bed, attempted to repositioned. pt facial expressions agitated, questioned in [place] made i help, no response. asked do you need to use the bathroom patient remain silent. asked an other rn to assist patient refusing. attempted to repositioned pt refused. attempted to check her sugar pt refuse Rn aware
--- NOTE | 2024-12-12 18:21 | PC.NURSE ---
patient found by an RN to be attempting to get out of bed. RN found patient to be warm to touch, oral temp showing fever of 102.9. provider made aware. this RN to bedside 20 IV established bilateral forearm, cultures and lactic obtained and sent. patient taken off bedpan, cloudy yellow urine sent. rectal temp of 104.1. medicated per the MAR w/ fluids and tylenol currently infusing. seizure pads in place to attempt to keep patient in bed at this time.
[2024-12-12 18:31] LABS: Appearance Urine Cloudy; Glucose Urine UA Negative (Negative); PH 6.5 (5.0-9.0); Specific Gravity - Urine 1.015 (1.005-1.025); UMIC TRIGGER UACC YES
[2024-12-12 18:33] LABS: UACC Culture Trigger YES
[2024-12-12 18:40] LABS: Cannabinoid Screen Urine Not Detected (Not Detect)
[2024-12-12 19:11] LABS: Glucose, Whole Blood 234 mg/dL (60-115)
[2024-12-12 20:12] LABS: Reflex Lactate? Lactic Acid Added
--- NOTE | 2024-12-12 20:19 | P.HPHOSP_ITS ---
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 She was experiencing shakiness and sweating. She also complained of frontal headache, nausea, generalized weakness, suggestive fever and some confusion. She denied chest pain, abdominal pain, shortness on breath, palpitations and dizziness. She denied alcohol abuse, tobacco smoking or illicit drug use. In the ED, she was found to have fever (max 104.1) and tachycardia. Last blood pressure is 97/55. Blood workup showed leukocytosis of 15.2. There is minimal lactic acidosis of 2.2. Hemoglobin is 10.7, at baseline. Venous blood gas showed no respiratory acidosis. There are no significant electrolyte imbalances. BUN is 10 is 70 creatinine 0.87. Glucose is 234. LFTs are normal. Urinalysis consistent with urinary tract infection. Urine toxicology is negative. Serology for COVID-19, influenza and RSV is negative. CXR showed no acute cardiopulmonary process. ECG showed normal sinus rhythm without acute ischemic changes. ED tx: NS 1 L bolus, ceftriaxone 1 g IV, acetaminophen 1 g IV Review of Systems 2 Review of Systems: All 12 systems were reviewed and normal except as noted in HPI. COUNTS INCLUDE 234 BEDS AT THE [facility] Medical History History of adenomatous polyp of colon Iron deficiency anemia Hx of cancer of uterus Diabetes mellitus with retinopathy History of CVA with residual deficit Atherosclerotic cardiovascular disease Intracranial atherosclerosis Normocytic normochromic anemia Cancer History of degenerative joint disease GERD (gastroesophageal reflux disease) Sleep apnea Asthma Depression Vitamin D deficiency Essential hypertension Dyslipidemia Type 2 diabetes mellitus without complication, without long-term current use of insulin Family History Father Cancer Mother Cancer Myocardial infarction Family/Other Diabetes Surgical History Hx of hand surgery History of carpal tunnel release Hx of endoscopy Hx of colonoscopy Hx of cholecystectomy History of total abdominal hysterectomy Social History Household Members: Spouse Housing: Apartment Do you presently have visiting nurse or other home services: Yes Alcohol intake: never Patient Tobacco Use Status: Never used Tobacco e-Cigarette/Vaping Use: Never Used Second Hand Smoke Exposure: No Advance Directives: Yes Advance Directives on File: Yes Advance Directives Date on File: 01/20/21 service: No Current occupational status: disabled Current occupation: rt handed Cognitive needs: No Hearing needs: No Vision needs: No Meds Allergies Allergy/AdvReac Type Severity Reaction Status Date / Time No Known Allergies (No Known Allergy Verified 12/12/24 15:25 Allergies*) Active Medications: Current Medications Acetaminophen (Acetaminophen 325 Mg Tablet) 650 mg PO Q6H PRN PRN Reason: Pain, Mild 1-3,fever,headache Ceftriaxone Sodium (Ceftriaxone Sodium 1 Gm Vial) 1 gm IVPUSH Q24H BUSTER Dextrose (Dextrose 50 % 25 Gm/50 Ml Syringe) 25 gm IVPUSH Q15M PRN; Protocol PRN Reason: per Hypoglycemia Standing Ord. Enoxaparin Sodium (Enoxaparin Sodium 40 Mg/0.4 Ml Syringe) 40 mg SUBCUT Q24H BUSTER Glucose (Glucose Gel 15 Gm Gel..Gram.) 15 gm PO Q15M PRN; Protocol PRN Reason: per Hypoglycemia Standing Ord. Lactated Ringer's (Lr) 1,000 mls @ 999 mls/hr IV .Q1H1M STA Stop: 12/12/24 21:01 Insulin Human Lispro (Insulin Lispro 100 Unit/Ml 3 Ml Vial) 0 unit SUBCUT QIDACHS [facility]; Protocol Magnesium Hydroxide (Milk Of Magnesia 30 Ml Oral.Susp) 30 ml PO DAILY PRN PRN Reason: Constipation Melatonin (Melatonin 3 Mg Tablet) 6 mg PO BEDTIME PRN PRN Reason: Insomnia Sodium Chloride (0.9 % Sodium Chloride Flush 3 Ml Syringe) 3 ml IVFLUSH QSHIFT [facility] Home Medications ?Medication ?Instructions ?Recorded ?Confirmed ?Last Taken ?Type dulaglutide 1.5 mg/0.5 mL 1.5 mg subcut TH 12/12/2412/07/24 History subcutaneous pen injector Physical Exam 2 Vital Signs and Narrative: Vital Signs: Last Vital Signs Temp 102.6 F H 08/12/25 19:05 Pulse 111 H 12/12/24 19:05 Resp 20 12/12/24 19:05 BP 115/57 L 12/12/24 19:05 Pulse Ox 94 12/12/24 19:05 O2 Del Method Room Air 12/12/24 19:05 BMI result Body Mass Index 29.2 Constitutional - Awake and Alert, No apparent distress HEENT - PER, EOMI. Dry oral mucosa. Heart - RRR, No murmurs. Lungs - Normal lung expansion, Normal respiratory effort, No respiratory distress, CTA bilaterally Abdominal - NT / ND; +BS; No rebound or guarding - No CVA tenderness Extremities - No calf tenderness bilaterally, no swelling Musculoskeletal - Normal inspection, normal ROM Skin - Warm/Dry Neurological - Alert & oriented x3. Left hemiparesis and left facial droop (chronic). Psychological - Appropriate affect Results Labs 12/12/24 14:59 12/12/24 14:59 Labs: Laboratory Results - last 24 hr 12/12/24 12/12/24 12/12/24 14:38 14:59 15:25 MCV 86.7 MCH 28.5 MCHC 32.8 RDW 15.1 Plt Count 167 D MPV 11.3 Immature Gran % (Auto) 0.5 H Neut % (Auto) 91.1 H Lymph % (Auto) 3.0 L [place] % (Auto) 5.0 Eos % (Auto) 0.1 Baso % (Auto) 0.3 Lymph # (Auto) 0.5 L [place] # (Auto) 0.8 Eos # (Auto) 0.0 Baso # (Auto) 0.0 Abs Immat Gran (auto) 0.08 H Absolute Neuts (auto) 13.9 H Absolute Nucleated RBC 0.000 Nucleated RBC % (auto) 0.0 Smear Tech's Comments VERIFIED Anion Gap 17 Estim Creat Clear Calc TNP Estimated GFR > 60 POC Glucose 165 H 172 H Random Glucose 185 H Lactic Acid Calcium 9.0 Magnesium 1.6 Total Bilirubin 0.9 AST 22 ALT 14 Alkaline Phosphatase 78 Total Protein 7.5 Albumin 3.5 Urine Color Urine Appearance Urine pH Ur Specific [place] Urine Protein Urine Glucose (UA) Urine Ketones Urine Blood Urine Nitrite Ur Leukocyte Esterase Urine RBC Urine WBC Ur Squamous Epith Cells Urine Bacteria Hyaline Casts Urine Opiates Screen Ur Buprenorphine Scrn Ur Oxycodone Screen Urine Methadone Screen Urine Fentanyl Screen Ur Barbiturates Screen Ur Phencyclidine Scrn Ur Amphetamines Screen U Benzodiazepines Scrn Urine Cocaine Screen U Marijuana (THC) Screen Influenza Type A (PCR) NEGATIVE Influenza Type B (PCR) NEGATIVE RSV RNA Qual (PCR) NEGATIVE SARS-CoV-2 RNA (RT-PCR) NEGATIVE 12/12/24 12/12/24 12/12/24 17:44 18:04 18:14 MCV MCH MCHC RDW Plt Count MPV Immature Gran % (Auto) Neut % (Auto) Lymph % (Auto) [place] % (Auto) Eos % (Auto) Baso % (Auto) Lymph # (Auto) [place] # (Auto) Eos # (Auto) Baso # (Auto) Abs Immat Gran (auto) Absolute Neuts (auto) Absolute Nucleated RBC Nucleated RBC % (auto) Smear Tech's Comments Anion Gap Estim Creat Clear Calc Estimated GFR POC Glucose 234 H Random Glucose Lactic Acid 2.2 H* Calcium Magnesium Total Bilirubin AST ALT Alkaline Phosphatase Total Protein Albumin Urine Color Yellow Urine Appearance Cloudy Urine pH 6.5 Ur Specific [place] 1.015 Urine Protein 100 (2+) H Urine Glucose (UA) Negative Urine Ketones Negative Urine Blood Trace H Urine Nitrite Negative Ur Leukocyte Esterase Moderate (2+) H Urine RBC 3-5 H Urine WBC >50 H Ur Squamous Epith Cells 0-2 Urine Bacteria 4+ Hyaline Casts 0-2 Urine Opiates Screen Not Detected Ur Buprenorphine Scrn Not Detected Ur Oxycodone Screen Not Detected Urine Methadone Screen Not Detected Urine Fentanyl Screen Not Detected Ur Barbiturates Screen Not Detected Ur Phencyclidine Scrn Not Detected Ur Amphetamines Screen Not Detected U Benzodiazepines Scrn Not Detected Urine Cocaine Screen Not Detected U Marijuana (THC) Screen Not Detected Influenza Type A (PCR) Influenza Type B (PCR) RSV RNA Qual (PCR) SARS-CoV-2 RNA (RT-PCR) Assessment and Plan (1) Encephalopathy: Qualifiers: Encephalopathy type: unspecified encephalopathy Qualified Code(s): G 93.40 - Encephalopathy, unspecified Status: Acute (2) UTI (urinary tract infection): Qualifiers: Urinary tract infection type: acute cystitis Hematuria presence: w ithout hematuria Qualified Code(s): N30.00 - Acute cystitis without hematuria Status: Acute (3) Severe sepsis: Status: Acute Plan Marisol Foss is a 59 y/o woman presents to the hospital with: Acute encephalopathy secondary to UTI. Admit to hospitalist service. Continue empiric IV antibiotic therapy with ceftriaxone. Urine culture obtained -will follow results. Severe sepsis criteria secondary to urinary tract infection. LR 1 L bolus to complete 30 ml/hr bolus. Continue to monitor lactic acid. Blood and urine culture obtained -will follow results. Type 2 diabetes mellitus. BG checks before meals at bedtime. Hold metformin. Start Lantus 10 units subQ at bedtime. Insulin sliding scale. Diabetic diet. Essential hypertension. Amlodipine and lisinopril-HCTZ on hold due to soft BP. Hyperlipidemia. Continue atorvastatin and ezetimibe. Obstructive sleep apnea. Unable to tolerate CPAP. 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 Not on antiplatelets. Continue statin. DVT prophylaxis: Lovenox. Code status: Full. Patient will need hospitalization for at least 2 midnights for acute encephalopathy due to UTI causing severe sepsis treatment with IV fluids and empiric IV antibiotic therapy. Quality Stroke Does the patient have a stroke diagnosis?: No VTE Prior VTE?: No VTE Risk Level:: Medical - moderate - high VTE Device Contraindication: Treatment Not Indicated VTE Drug Contraindication: N/A - Med Ordered
[2024-12-12] MEDS: Lactated Ringers 1,000 ML 999 ML IV (20:20)
--- NOTE | 2024-12-12 20:22 | PHA.MEDREC ---
Addendum entered by Michael Koch gracie 12/12/24 20:37: med rec reviewed Original Note: Pharmacy Consult ? Medication Reconciliation Pharmacy has completed the medication reconciliation. Patient is a poor historian. Patient told me to call [facility] for a list of her medications. Patient was able to confirm Trulicity 1.5 mg every , last dose was 12/07/24. Patient states she is not taking Vitamin D3 50,000 units. Patient last had her medications yesterday. Utilized claims to confirm med list.
[2024-12-12 20:59] LABS: ~Lactic Acid-LAB USE ONLY 6.6 mmol/L (0.5-2.0)
[2024-12-12 21:37] LABS: Glucose, Whole Blood 182 mg/dL (60-115)
[2024-12-12] MEDS: Lactated Ringers 1,000 ML 150 ML IVCONT (21:38)
[2024-12-12] MEDS: Insulin Glargine,Hum.rec.anlog 100 UNIT/ML 10 ML VIAL 10 UNIT SUBCUT (21:38)
[2024-12-12 22:41] LABS: Reflex Lactate? 2 Y
[2024-12-12] MEDS: 0.9 % Sodium Chloride Flush 3 ML SYRINGE IVFLUSH (23:45)
[2024-12-13 00:19] LABS: ~Lactic Acid-LAB USE ONLY 2.2 mmol/L (0.5-2.0)
[2024-12-13 00:20] LABS: Cancel Lactic Acid Canceled
[2024-12-13 03:05] VITALS: BP 154/55; PULSE 81; RESP 19; TEMP 37.1; O2SAT 97
[2024-12-13] MEDS: Lactated Ringers 1,000 ML 150 ML IVCONT ×3 (03:31→18:45)
[2024-12-13 03:47] VITALS: BMI 31.3; BMI 31.4
[2024-12-13 04:00] VITALS: BP 162/74; PULSE 84; RESP 16; TEMP 36.8; O2SAT 99
[2024-12-13] MEDS: iohexoL 350 MG/ML 100 ML INFUS..BTL 85 ML IV (05:25)
[2024-12-13 06:23] LABS: Hematocrit 29.9 % (37.0-47.0); Hemoglobin 9.6 g/dl (12.0-16.0); Mean Corpuscular HGB Conc 32.1 g/dl (31.0-35.0); Mean Corpuscular Hemoglobin 27.8 pg (27.0-33.0); Mean Corpuscular Volume 86.7 fL (80.0-98.0); NRBC Abs Auto 0.000 X10*3/uL (0.0-0.012); NRBC Pct Auto 0.0 /100WBC (0.0-0.2); Platelet Count 134 X10*3/uL (160-400); Red Blood Count 3.45 X10*6/uL (4.20-5.50); White Blood Count 14.7 X10*3/uL (4.8-10.8)
[2024-12-13 06:41] LABS: Anion Gap 11 (12-20); Blood Urea Nitrogen 27 mg/dL (9-16); Calcium 8.0 mg/dL (8.4-10.2); Carbon Dioxide 25 mmol/L (22-29); Chloride 107 mmol/L (96-108); Creatinine Clr Calc Pharmacy 54.3; Estimated Glomerular Filt Rate 56; Magnesium 1.3 mg/dL (1.6-2.6); Potassium 4.3 mmol/L (3.3-5.1); Sodium 139 mmol/L (135-145)
[2024-12-13 07:33] VITALS: PULSE 104; RESP 18; TEMP 37.1; O2SAT 98
[2024-12-13] MEDS: Magnesium Sulfate/H2O 2 GM/50 ML PIGGYBACK IV ×3 (07:48→14:58)
[2024-12-13] MEDS: Ferrous Sulfate 324 MG TABLET.DR PO (07:53)
[2024-12-13 07:54] LABS: Glucose, Whole Blood 133 mg/dL (60-115)
[2024-12-13] MEDS: 0.9 % Sodium Chloride Flush 3 ML SYRINGE IVFLUSH (07:54)
[2024-12-13 08:05] LABS: Band Neutrophils Percent 6 % (3-5); Basophils Abs Manual 0.1 X10*3/uL (0.0-0.2); Basophils Percent Manual 1 % (0-2); Lymphocytes Absolute Manual 0.4 X10*3/uL (1.2-4.9); Lymphocytes Percent Manual 3 % (20-40); Metamyelocytes Absolute 0.1 X10*3/uL; Metamyelocytes Percent 1 %; Monocytes Absolute Manual 0.6 X10*3/uL (0.1-1.2); Monocytes Percent Manual 4 % (2-11); Neutrophils Absolute Manual 13.4 X10*3/uL (2.0-8.3); Neutrophils Percent Manual 85 % (45-73)
[2024-12-13 08:06] LABS: RBC Morphology NOTED
[2024-12-13 08:07] LABS: Hypochromasia 1+ (5-14) /OIF
[2024-12-13 10:03] LABS: Glucose, Whole Blood 157 mg/dL (60-115)
[2024-12-13 10:16] VITALS: BP 112/58
--- NOTE | 2024-12-13 10:44 | P.PNIM_ITS ---
Subjective Subjective Date of Service: 12/13/24 Interval History: f/u on sepsis, uti and metabolic encephalopathy more lucid, sepsis improved Physical Exam 2 Vital Signs: Vital Signs: Last Vital Signs Temp 98.7 F 12/13/24 07:33 Pulse 104 H 12/13/24 07:33 Resp 18 12/13/24 07:33 BP 112/58 L 12/13/24 10:16 Pulse Ox 98 12/13/24 07:33 O2 Del Method Room Air 12/13/24 07:33 BMI result Body Mass Index 31.4 Objective Data Active Medications Acetaminophen (Acetaminophen 325 Mg Tablet) 650 mg PO Q6H PRN PRN Reason: Pain, Mild 1-3,fever,headache Last Admin: 12/12/24 23:45 Dose: 650 mg Documented By: JC Atorvastatin Calcium (Atorvastatin Calcium 80 Mg Tablet) 80 mg PO BEDTIME [facility] Ceftriaxone Sodium (Ceftriaxone Sodium 1 Gm Vial) 1 gm IVPUSH Q24H [facility] Last Admin: 12/13/24 05:37 Dose: 1 gm Documented By: LUI Dextrose (Dextrose 50 % 25 Gm/50 Ml Syringe) 25 gm IVPUSH Q15M PRN; Protocol PRN Reason: per Hypoglycemia Standing Ord. Ezetimibe (Ezetimibe 10 Mg Tablet) 10 mg PO DAILY [facility] Last Admin: 12/13/24 07:54 Dose: 10 mg Documented By: OCTAVIO Enoxaparin Sodium (Enoxaparin Sodium 40 Mg/0.4 Ml Syringe) 40 mg SUBCUT Q24H [facility] Last Admin: 12/13/24 07:53 Dose: 40 mg Documented By: OCTAVIO Ferrous Sulfate (Ferrous Sulfate 324 Mg Tablet.Dr) 324 mg PO DAILY [facility] Last Admin: 12/13/24 07:53 Dose: 324 mg Documented By: OCTAVIO Glucose (Glucose Gel 15 Gm Gel..Gram.) 15 gm PO Q15M PRN; Protocol PRN Reason: per Hypoglycemia Standing Ord. Hydromorphone HCl (Hydromorphone Hcl 0.5 Mg/0.5 Ml Syringe) 0.5 mg IVPUSH Q3H PRN; Protocol PRN Reason: Pain, Severe (Pain Scale 7-10) Last Admin: 12/13/24 09:45 Dose: 0.5 mg Documented By: OCTAVIO Lactated Ringer's (Lr) 1,000 mls @ 150 mls/hr IVCONT .Q6H40M [facility] Last Infusion: 12/13/24 09:26 Dose: 150 mls/hr Documented By: OCTAVIO Ibuprofen (Ibuprofen 200 Mg Tablet) 200 mg PO BID PRN PRN Reason: Fever Insulin Glargine (Insulin Glargine,Hum.Rec.Anlog 100 Unit/Ml 10 Ml Vial) 10 unit SUBCUT BEDTIME [facility] Last Admin: 12/12/24 21:38 Dose: 10 unit Documented By: JC Insulin Human Lispro (Insulin Lispro 100 Unit/Ml 3 Ml Vial) 0 unit SUBCUT QIDACHS [facility]; Protocol Last Admin: 12/13/24 07:59 Dose: Not Given Documented By: OCTAVIO Non-Admin Reason: No Insulin Coverage Magnesium Hydroxide (Milk Of Magnesia 30 Ml Oral.Susp) 30 ml PO DAILY PRN PRN Reason: Constipation Meclizine HCl (Meclizine Hcl 12.5 Mg Tablet) 12.5 mg PO TID PRN PRN Reason: Vertigo Last Admin: 12/13/24 07:53 Dose: 12.5 mg Documented By: OCTAVIO Melatonin (Melatonin 3 Mg Tablet) 6 mg PO BEDTIME PRN PRN Reason: Insomnia Ondansetron HCl (Ondansetron Hcl 4 Mg/2 Ml Vial) 4 mg IVPUSH Q6H PRN PRN Reason: Nausea and Vomiting Sodium Chloride (0.9 % Sodium Chloride Flush 3 Ml Syringe) 3 ml IVFLUSH QSHIFT [facility] Last Admin: 12/13/24 07:54 Dose: 3 ml Documented By: OCTAVIO Labs 12/13/24 05:59 12/13/24 05:59 Labs: Laboratory Results - last 24 hr 12/12/24 12/12/24 12/12/24 14:38 14:59 15:25 MCV 86.7 MCH 28.5 MCHC 32.8 RDW 15.1 Plt Count 167 D MPV 11.3 Immature Gran % (Auto) 0.5 H Neut % (Auto) 91.1 H Lymph % (Auto) 3.0 L [place] % (Auto) 5.0 Eos % (Auto) 0.1 Baso % (Auto) 0.3 Lymph # (Auto) 0.5 L [place] # (Auto) 0.8 Eos # (Auto) 0.0 Baso # (Auto) 0.0 Abs Immat Gran (auto) 0.08 H Absolute Neuts (auto) 13.9 H Absolute Nucleated RBC 0.000 Nucleated RBC % (auto) 0.0 Neutrophils % (Manual) Band Neutrophils % Lymphocytes % (Manual) Monocytes % (Manual) Basophils % (Manual) Metamyelocytes % Abs Neuts (Manual) Lymphocytes # (Manual) Monocytes # (Manual) Basophils # (Manual) Metamyelocytes # Platelet Estimate Plt Morphology Comment RBC Morphology Hypochromasia Smear Tech's Comments VERIFIED Anion Gap 17 Estim Creat Clear Calc TNP Estimated GFR > 60 POC Glucose 165 H 172 H Random Glucose 185 H Lactic Acid Lactic Acid F/U @ 2Hr Lactic Acid F/U @ 4Hr Calcium 9.0 Magnesium 1.6 Total Bilirubin 0.9 AST 22 ALT 14 Alkaline Phosphatase 78 Total Protein 7.5 Albumin 3.5 Urine Color Urine Appearance Urine pH Ur Specific [place] Urine Protein Urine Glucose (UA) Urine Ketones Urine Blood Urine Nitrite Ur Leukocyte Esterase Urine RBC Urine WBC Ur Squamous Epith Cells Urine Bacteria Hyaline Casts Urine Opiates Screen Ur Buprenorphine Scrn Ur Oxycodone Screen Urine Methadone Screen Urine Fentanyl Screen Ur Barbiturates Screen Ur Phencyclidine Scrn Ur Amphetamines Screen U Benzodiazepines Scrn Urine Cocaine Screen U Marijuana (THC) Screen Influenza Type A (PCR) NEGATIVE Influenza Type B (PCR) NEGATIVE RSV RNA Qual (PCR) NEGATIVE SARS-CoV-2 RNA (RT-PCR) NEGATIVE 12/12/24 12/12/24 12/12/24 17:44 18:04 18:14 MCV MCH MCHC RDW Plt Count MPV Immature Gran % (Auto) Neut % (Auto) Lymph % (Auto) [place] % (Auto) Eos % (Auto) Baso % (Auto) Lymph # (Auto) [place] # (Auto) Eos # (Auto) Baso # (Auto) Abs Immat Gran (auto) Absolute Neuts (auto) Absolute Nucleated RBC Nucleated RBC % (auto) Neutrophils % (Manual) Band Neutrophils % Lymphocytes % (Manual) Monocytes % (Manual) Basophils % (Manual) Metamyelocytes % Abs Neuts (Manual) Lymphocytes # (Manual) Monocytes # (Manual) Basophils # (Manual) Metamyelocytes # Platelet Estimate Plt Morphology Comment RBC Morphology Hypochromasia Smear Tech's Comments Anion Gap Estim Creat Clear Calc Estimated GFR POC Glucose 234 H Random Glucose Lactic Acid 2.2 H* Lactic Acid F/U @ 2Hr Lactic Acid F/U @ 4Hr Calcium Magnesium Total Bilirubin AST ALT Alkaline Phosphatase Total Protein Albumin Urine Color Yellow Urine Appearance Cloudy Urine pH 6.5 Ur Specific [place] 1.015 Urine Protein 100 (2+) H Urine Glucose (UA) Negative Urine Ketones Negative Urine Blood Trace H Urine Nitrite Negative Ur Leukocyte Esterase Moderate (2+) H Urine RBC 3-5 H Urine WBC >50 H Ur Squamous Epith Cells 0-2 Urine Bacteria 4+ Hyaline Casts 0-2 Urine Opiates Screen Not Detected Ur Buprenorphine Scrn Not Detected Ur Oxycodone Screen Not Detected Urine Methadone Screen Not Detected Urine Fentanyl Screen Not Detected Ur Barbiturates Screen Not Detected Ur Phencyclidine Scrn Not Detected Ur Amphetamines Screen Not Detected U Benzodiazepines Scrn Not Detected Urine Cocaine Screen Not Detected U Marijuana (THC) Screen Not Detected Influenza Type A (PCR) Influenza Type B (PCR) RSV RNA Qual (PCR) SARS-CoV-2 RNA (RT-PCR) 12/12/24 12/12/24 12/12/24 20:33 20:38 23:41 MCV MCH MCHC RDW Plt Count MPV Immature Gran % (Auto) Neut % (Auto) Lymph % (Auto) [place] % (Auto) Eos % (Auto) Baso % (Auto) Lymph # (Auto) [place] # (Auto) Eos # (Auto) Baso # (Auto) Abs Immat Gran (auto) Absolute Neuts (auto) Absolute Nucleated RBC Nucleated RBC % (auto) Neutrophils % (Manual) Band Neutrophils % Lymphocytes % (Manual) Monocytes % (Manual) Basophils % (Manual) Metamyelocytes % Abs Neuts (Manual) Lymphocytes # (Manual) Monocytes # (Manual) Basophils # (Manual) Metamyelocytes # Platelet Estimate Plt Morphology Comment RBC Morphology Hypochromasia Smear Tech's Comments Anion Gap Estim Creat Clear Calc Estimated GFR POC Glucose 182 H Random Glucose Lactic Acid Lactic Acid F/U @ 2Hr 6.6 H* Lactic Acid F/U @ 4Hr 2.2 H* Calcium Magnesium Total Bilirubin AST ALT Alkaline Phosphatase Total Protein Albumin Urine Color Urine Appearance Urine pH Ur Specific [place] Urine Protein Urine Glucose (UA) Urine Ketones Urine Blood Urine Nitrite Ur Leukocyte Esterase Urine RBC Urine WBC Ur Squamous Epith Cells Urine Bacteria Hyaline Casts Urine Opiates Screen Ur Buprenorphine Scrn Ur Oxycodone Screen Urine Methadone Screen Urine Fentanyl Screen Ur Barbiturates Screen Ur Phencyclidine Scrn Ur Amphetamines Screen U Benzodiazepines Scrn Urine Cocaine Screen U Marijuana (THC) Screen Influenza Type A (PCR) Influenza Type B (PCR) RSV RNA Qual (PCR) SARS-CoV-2 RNA (RT-PCR) 12/13/24 12/13/24 12/13/24 05:59 07:48 09:59 MCV 86.7 MCH 27.8 MCHC 32.1 RDW 15.1 Plt Count 134 L MPV 11.7 Immature Gran % (Auto) Cancelled Neut % (Auto) Cancelled Lymph % (Auto) Cancelled [place] % (Auto) Cancelled Eos % (Auto) Cancelled Baso % (Auto) Cancelled Lymph # (Auto) Cancelled [place] # (Auto) Cancelled Eos # (Auto) Cancelled Baso # (Auto) Cancelled Abs Immat Gran (auto) Cancelled Absolute Neuts (auto) Cancelled Absolute Nucleated RBC 0.000 Nucleated RBC % (auto) 0.0 Neutrophils % (Manual) 85 H Band Neutrophils % 6 H Lymphocytes % (Manual) 3 L Monocytes % (Manual) 4 Basophils % (Manual) 1 Metamyelocytes % 1 Abs Neuts (Manual) 13.4 H Lymphocytes # (Manual) 0.4 L Monocytes # (Manual) 0.6 Basophils # (Manual) 0.1 Metamyelocytes # 0.1 Platelet Estimate DECREASED Plt Morphology Comment NORMAL RBC Morphology NOTED Hypochromasia 1+ (5-14) Smear Tech's Comments Anion Gap 11 L Estim Creat Clear Calc 54.3 Estimated GFR 56 POC Glucose 133 H 157 H Random Glucose 144 H Lactic Acid 1.4 Lactic Acid F/U @ 2Hr Lactic Acid F/U @ 4Hr Calcium 8.0 L D Magnesium 1.3 L* Total Bilirubin AST ALT Alkaline Phosphatase Total Protein Albumin Urine Color Urine Appearance Urine pH Ur Specific [place] Urine Protein Urine Glucose (UA) Urine Ketones Urine Blood Urine Nitrite Ur Leukocyte Esterase Urine RBC Urine WBC Ur Squamous Epith Cells Urine Bacteria Hyaline Casts Urine Opiates Screen Ur Buprenorphine Scrn Ur Oxycodone Screen Urine Methadone Screen Urine Fentanyl Screen Ur Barbiturates Screen Ur Phencyclidine Scrn Ur Amphetamines Screen U Benzodiazepines Scrn Urine Cocaine Screen U Marijuana (THC) Screen Influenza Type A (PCR) Influenza Type B (PCR) RSV RNA Qual (PCR) SARS-CoV-2 RNA (RT-PCR) Microbiology Microbiology Results: Microbiology 12/12/24 18:04 Blood Culture - Preliminary Blood - Venous Prelim: GNR Gram Stain only 12/12/24 18:04 Blood Culture - Preliminary Blood - Venous Prelim: GNR Gram Stain only Assessment and Plan (1) Severe sepsis: Status: Acute (2) UTI (urinary tract infection): Status: Acute Plan 59 y/o woman presents to the hospital Acute metabolic encephalopathy secondary to UTI. continue ceftriaxone, follow culture Severe sepsis criteria secondary to urinary tract infection. management as above Acute lactic acisosis d/t sepsis, resolved with IvF Type 2 diabetes mellitus. Lantus, SSI, diabetic diet,, hold metformin for now HTN. Norvasc, lisinopri-hctz on hold d/t low BP hypomagenesemia IV mag Hyperlipidemia. Continue atorvastatin and ezetimibe. Obstructive sleep apnea. Unable to tolerate CPAP. 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 Not on antiplatelets. Continue statin. DVT prophylaxis: Lovenox. Code status: Full. Quality Stroke Does the patient have a stroke diagnosis?: No VTE Prior VTE?: No VTE Risk Level:: Medical - moderate - high VTE Device Contraindication: Treatment Not Indicated VTE Drug Contraindication: N/A - Med Ordered
--- NOTE | 2024-12-13 10:54 | MHC.CM.PN ---
IMM DELIVERED PT LIVES ALONE AND USES [facility] FOR MOBILITY. PT HAS SHIFT LEADER ASSIST VIA [facility] (PT IS UNSURE OF HOURS) + HCP ON FILE AND VERIFIED. PCP DR. DENNEY AT [facility]. DP: HOME WITH RESUMPTION OF SHIFT LEADER SERVICES IS THE GOAL. PT MAY NEED ASSIST WITH TRANSPORT HOME. CM WILL CONTINUE TO FOLLOW FOR ANY CHANGE TO DC PLAN/NEEDS.
[2024-12-13 11:30] LABS: Glucose, Whole Blood 165 mg/dL (60-115)
[2024-12-13 13:17] LABS: Glucose, Whole Blood 144 mg/dL (60-115)
[2024-12-13 15:44] VITALS: BP 133/63; PULSE 80; RESP 18; TEMP 36.1; O2SAT 93
[2024-12-13 16:08] LABS: Glucose, Whole Blood 121 mg/dL (60-115)
[2024-12-13 20:00] VITALS: BP 165/72; PULSE 92; RESP 18; TEMP 37.1; O2SAT 94
[2024-12-13 21:08] LABS: Glucose, Whole Blood 117 mg/dL (60-115)
[2024-12-13] MEDS: Insulin Glargine,Hum.rec.anlog 100 UNIT/ML 10 ML VIAL 10 UNIT SUBCUT (22:56)
[2024-12-14] MEDS: 0.9 % Sodium Chloride Flush 3 ML SYRINGE IVFLUSH ×3 (01:07→21:41)
[2024-12-14] MEDS: Lactated Ringers 1,000 ML 150 ML IVCONT ×3 (01:08→16:08)
[2024-12-14 03:46] VITALS: BP 123/58; PULSE 51; RESP 18; TEMP 36.8; O2SAT 93
[2024-12-14 07:17] VITALS: BP 134/63; PULSE 73; RESP 12; TEMP 36.3; O2SAT 92
[2024-12-14 07:31] LABS: Glucose, Whole Blood 95 mg/dL (60-115)
[2024-12-14] MEDS: Ferrous Sulfate 324 MG TABLET.DR PO (09:34)
--- NOTE | 2024-12-14 09:47 | PM.DS ---
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 She was experiencing shakiness and sweating. She also complained of frontal headache, nausea, generalized weakness, suggestive fever and some confusion. She denied chest pain, abdominal pain, shortness on breath, palpitations and dizziness. She denied alcohol abuse, tobacco smoking or illicit drug use. In the ED, she was found to have fever (max 104.1) and tachycardia. Last blood pressure is 97/55. Blood workup showed leukocytosis of 15.2. There is minimal lactic acidosis of 2.2. Hemoglobin is 10.7, at baseline. Venous blood gas showed no respiratory acidosis. There are no significant electrolyte imbalances. BUN is 10 is 70 creatinine 0.87. Glucose is 234. LFTs are normal. Urinalysis consistent with urinary tract infection. Urine toxicology is negative. Serology for COVID-19, influenza and RSV is negative. CXR showed no acute cardiopulmonary process. ECG showed normal sinus rhythm without acute ischemic changes. ED tx: NS 1 L bolus, ceftriaxone 1 g IV, acetaminophen 1 g IV Addendum: 4:34 am - pt started to c/o severe 10/10 abdominal pain. Abdomen and pelvis CT scan with IV contrast showed findings consistent with pyelonephritis. Treatment with Dilaudid IV ordered. 6:18 am - 1 set of blood cultures positive for Gram-negative rods. Patient is receiving ceftriaxone IV. Old urine cultures: Positive for Klebsiella pneumoniae, Klebsiella oxytoca and E.coli all susceptible to ceftriaxone. Hospital course: patient presented with chills an found to have metabolic encephalopathy due to UTI and ultimately gram negative martinez bacteremia. CT scan showed New significant left pyelonephritis the inhomogeneous decreased enhancement is likely secondary to the pyelonephritis can not exclude concomitant renal infarct Mild bladder wall thickening suspicious for cystitis Colonic diverticulosis no diverticulitis Chronic and incidental findings as above She has been treated with ceftriaxone 2 IV daily. Both urine and blood culture grew Klebsiella pneumoniae sensitive to ceftriaxone. Sepsis has resolved, she is afebrile WBC has been within normal. Antibiotics will be transitioned to oral cefuroxime 500 mg twice daily for a total of 14 days of treatment she is to follow up with her primary care physician outpatient basis. Time Attestation Discharge Coordination Time (in mins): 45 Quality: Safe Use of Opioids Does Pt have an Active Cancer Diagnosis on the Problem List?: No Quality: Stroke Does the patient have a stroke diagnosis?: No Physical Exam Vital Signs: Vital Signs: Last Vital Signs Temp 97.3 F 12/14/24 07:17 Pulse 73 12/14/24 07:17 Resp 12 12/14/24 07:17 BP 134/63 12/14/24 07:17 Pulse Ox 92 12/14/24 07:17 O2 Del Method Room Air 12/14/24 07:17 BMI result Body Mass Index 31.4 General: AO X 3, no acute distress Resp: CTA bilateral CVS: S1,S2,RRR GI: +BS, NT, no distention Skin: No rash Neuro: motor grossly intact Psych: appropriate affect DS: Data Data Completed and Pending Labs on day of discharge: Laboratory Results - last 24 hr 12/13/24 12/13/24 12/13/24 09:59 11:22 13:14 POC Glucose 157 H 165 H 144 H 12/13/24 12/13/24 12/14/24 16:04 20:50 07:27 POC Glucose 121 H 117 H 95 Preliminary micro results at discharge 12/12/24 18:04 Blood Culture - Preliminary Blood - Venous Prelim: GNR Gram Stain only 12/12/24 18:04 Blood Culture - Preliminary Blood - Venous Prelim: GNR Gram Stain only Discharge Plan Discharge Anticipated Discharge Date/Time: 12/15/24 10:43 Patient Disposition: Home, Self-Care Discharge Diagnosis: Acute Pyelonephritis, UTI and bacteremia Referrals: María Cooper MD [Primary Care Provider, Internal Medicine] - 1 Week Discharge Medications: New cefuroxime axetil 500 mg tablet 500 mg PO BID 11 Days Qty: 22 0RF Continued (DME) To [facility] program See Rx Instructions .Route .MEDSUPPLY Qty: 1 0RF Rx Instructions: .?Occupational Therapy evaluation for functional community mobility. (DME) FreeStyle Lite Strips Strip See Rx Instructions .ROUTE .MEDSUPPLY Qty: 100 6RF Rx Instructions: test blood sugar twice a day (DME) blood-glucose meter [FreeStyle Lite Meter] Kit See Rx Instructions .ROUTE .MEDSUPPLY Qty: 1 0RF Rx Instructions: Three times a day (DME) lancing device Misc See Rx Instructions .ROUTE .MEDSUPPLY Qty: 1 0RF Rx Instructions: As directed (DME) miscellaneous medical supply Misc See Rx Instructions .Route Qty: 1 0RF Rx Instructions: Use As directed (DME) Hand-held shower See Rx Instructions .Route .MEDSUPPLY Qty: 1 0RF Rx Instructions: Use As directed (DME) Re-usable bed pads See Rx Instructions .Route .MEDSUPPLY Qty: 4 2RF Rx Instructions: Use As directed (DME) Adult pull-ups large See Rx Instructions .Route .MEDSUPPLY Qty: 150 11RF Rx Instructions: Use As directed (DME) diaphers large See Rx Instructions .Route .MEDSUPPLY Qty: 100 11RF Rx Instructions: As directed (DME) Raised toilet seat See Rx Instructions .Route .MEDSUPPLY Qty: 1 0RF Rx Instructions: As directed lisinopril-hydrochlorothiazide 10-12.5 mg tablet 1 tab PO DAILY Qty: 90 1RF metformin 500 mg tablet 500 mg PO DAILY Qty: 90 1RF atorvastatin 80 mg tablet 80 mg PO BEDTIME 90 Days Qty: 90 1RF ezetimibe 10 mg tablet 10 mg PO DAILY Qty: 90 1RF Rx Instructions: NEED SCHEDULED APPOINTMENT FOR FUTURE REFILLS (DME) FreeStyle Lite Strips Strip See Rx Instructions .Route Qty: 100 5RF Rx Instructions: Check fasting blood sugar twice a day before meals amlodipine 2.5 mg tablet 2.5 mg PO DAILY Qty: 90 1RF Protocol: Hold for SBP< HOLD for SBP < : 90 ibuprofen 600 mg tablet 600 mg PO BID PRN (Reason: for pain) Qty: 40 0RF meclizine 12.5 mg tablet 12.5 mg PO TID PRN (Reason: vertigo) 5 Days Qty: 20 0RF dulaglutide 1.5 mg/0.5 mL pen injector 1.5 mg subcut TH ferrous sulfate 325 mg (65 mg iron) tablet 325 mg PO DAILY Qty: 90 1RF Diet: Diabetic diet Activity on Discharge: As tolerated Stand Alone Forms: Patient Portal Discharge page Print Language: Australian Care Plan Goals: Recovering from sepsis due to urinary tract infection and acute pyelonephritis. Also recovering from encephalopathy. Health Concerns: Acute pyelonephritis, sepsis, UTI, metabolic encephalopathy Plan of Treatment: Take cefuroxime as directed and follow-up with your primary care physician within a week. Call for appointment. Assessment: See above
--- NOTE | 2024-12-14 09:52 | HO.PM.IMPN ---
Subjective Subjective Date of Service: 12/14/24 Interval History: f/u on sepsis, uti and metabolic encephalopathy sepsis resolved, no fever, urine and blood growing gram negativ martinez CT show acute pyelonephritis Physical Exam Vital Signs: Vital Signs: Last Vital Signs Temp 97.3 F 12/14/24 07:17 Pulse 73 12/14/24 07:17 Resp 12 12/14/24 07:17 BP 134/63 12/14/24 07:17 Pulse Ox 92 12/14/24 07:17 O2 Del Method Room Air 12/14/24 07:17 BMI result Body Mass Index 31.4 General: AO X 3, no acute distress Resp: CTA bilateral CVS: S1,S2,RRR GI: +BS, NT, no distention Skin: No rash Neuro: motor grossly intact Psych: appropriate affect Objective Data Active Medications Acetaminophen (Acetaminophen 325 Mg Tablet) 650 mg PO Q6H PRN PRN Reason: Pain, Mild 1-3,fever,headache Last Admin: 12/12/24 23:45 Dose: 650 mg Documented By: JC Atorvastatin Calcium (Atorvastatin Calcium 80 Mg Tablet) 80 mg PO BEDTIME [facility] Last Admin: 12/13/24 22:56 Dose: 80 mg Documented By: JACINTO Ceftriaxone Sodium (Ceftriaxone Sodium 2 Gm Vial) 2 gm IVPUSH Q24H [facility] Last Admin: 12/14/24 09:36 Dose: 2 gm Documented By: EDER Dextrose (Dextrose 50 % 25 Gm/50 Ml Syringe) 25 gm IVPUSH Q15M PRN; Protocol PRN Reason: per Hypoglycemia Standing Ord. Ezetimibe (Ezetimibe 10 Mg Tablet) 10 mg PO DAILY [facility] Last Admin: 12/14/24 09:34 Dose: 10 mg Documented By: EDER Enoxaparin Sodium (Enoxaparin Sodium 40 Mg/0.4 Ml Syringe) 40 mg SUBCUT Q24H [facility] Last Admin: 12/14/24 09:36 Dose: 40 mg Documented By: EDER Ferrous Sulfate (Ferrous Sulfate 324 Mg Tablet.Dr) 324 mg PO DAILY [facility] Last Admin: 12/14/24 09:34 Dose: 324 mg Documented By: EDER Glucose (Glucose Gel 15 Gm Gel..Gram.) 15 gm PO Q15M PRN; Protocol PRN Reason: per Hypoglycemia Standing Ord. Hydromorphone HCl (Hydromorphone Hcl 0.5 Mg/0.5 Ml Syringe) 0.5 mg IVPUSH Q3H PRN; Protocol PRN Reason: Pain, Severe (Pain Scale 7-10) Last Admin: 12/13/24 09:45 Dose: 0.5 mg Documented By: OCTAVIO Lactated Ringer's (Lr) 1,000 mls @ 150 mls/hr IVCONT .Q6H40M [facility] Last Admin: 12/14/24 09:32 Dose: 150 mls/hr Documented By: EDER Ibuprofen (Ibuprofen 200 Mg Tablet) 200 mg PO BID PRN PRN Reason: Fever Insulin Glargine (Insulin Glargine,Hum.Rec.Anlog 100 Unit/Ml 10 Ml Vial) 10 unit SUBCUT BEDTIME [facility] Last Admin: 12/13/24 22:56 Dose: 10 unit Documented By: JACINTO Comments: Insulin Human Lispro (Insulin Lispro 100 Unit/Ml 3 Ml Vial) 0 unit SUBCUT QIDACHS [facility]; Protocol Last Admin: 12/14/24 08:06 Dose: Not Given Documented By: EDER Non-Admin Reason: No Insulin Coverage Magnesium Hydroxide (Milk Of Magnesia 30 Ml Oral.Susp) 30 ml PO DAILY PRN PRN Reason: Constipation Meclizine HCl (Meclizine Hcl 12.5 Mg Tablet) 12.5 mg PO TID PRN PRN Reason: Vertigo Last Admin: 12/13/24 07:53 Dose: 12.5 mg Documented By: OCTAVIO Melatonin (Melatonin 3 Mg Tablet) 6 mg PO BEDTIME PRN PRN Reason: Insomnia Last Admin: 12/13/24 22:56 Dose: 6 mg Documented By: JACINTO Ondansetron HCl (Ondansetron Hcl 4 Mg/2 Ml Vial) 4 mg IVPUSH Q6H PRN PRN Reason: Nausea and Vomiting Sodium Chloride (0.9 % Sodium Chloride Flush 3 Ml Syringe) [facility] Last Admin: 12/14/24 09:45 Dose: 3 ml Documented By: EDER Labs 12/13/24 05:59 12/13/24 05:59 Labs: Laboratory Results - last 24 hr 12/13/24 12/13/24 12/13/24 09:59 11:22 13:14 POC Glucose 157 H 165 H 144 H 12/13/24 12/13/24 12/14/24 16:04 20:50 07:27 POC Glucose 121 H 117 H 95 Microbiology Microbiology Results: Microbiology 12/12/24 18:34 Urine Culture - Final Urine clean catch - Clean Catch Midstream Klebsiella pneumoniae 12/12/24 18:04 Blood Culture - Preliminary Blood - Venous Prelim: GNR Gram Stain only 12/12/24 18:04 Blood Culture - Preliminary Blood - Venous Prelim: GNR Gram Stain only Assessment and Plan (1) Severe sepsis: Status: Acute (2) UTI (urinary tract infection): Status: Acute Plan 59 y/o woman presents to the hospital Acute metabolic encephalopathy secondary to UTI, gram negative martinez bacteremia, and pyelonephritis Treat underlying uti and sepsis Severe sepsis due to UTI, gram negative martinez bacteremia and acute pyelonephritis CT show New significant left pyelonephritis the inhomogeneous decreased enhancement is likely secondary to the pyelonephritis can not exclude concomitant renal infarct -Continue Ceftriaxone at 2 gram daily and follow final blood culture sensitivity Consider uro consult Acute lactic acisosis d/t sepsis, resolved with IvF Type 2 diabetes mellitus. Lantus, SSI, diabetic diet,, hold metformin for now HTN. Norvasc, lisinopri-hctz on hold d/t low BP hypomagenesemia IV mag Hyperlipidemia. Continue atorvastatin and ezetimibe. Obstructive sleep apnea. Unable to tolerate CPAP. 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 Not on antiplatelets. Continue statin. DVT prophylaxis: Lovenox. Code status: Full. Possibly dc later today Quality Stroke Does the patient have a stroke diagnosis?: No VTE Prior VTE?: No VTE Risk Level:: Medical - moderate - high VTE Device Contraindication: Treatment Not Indicated VTE Drug Contraindication: N/A - Med Ordered
[2024-12-14 11:23] LABS: Hematocrit 26.8 % (37.0-47.0); Hemoglobin 8.6 g/dl (12.0-16.0); Mean Corpuscular HGB Conc 32.1 g/dl (31.0-35.0); Mean Corpuscular Hemoglobin 28.1 pg (27.0-33.0); Mean Corpuscular Volume 87.6 fL (80.0-98.0); NRBC Abs Auto 0.000 X10*3/uL (0.0-0.012); NRBC Pct Auto 0.0 /100WBC (0.0-0.2); Platelet Count 119 X10*3/uL (160-400); Red Blood Count 3.06 X10*6/uL (4.20-5.50); White Blood Count 12.0 X10*3/uL (4.8-10.8)
[2024-12-14 11:35] LABS: Glucose, Whole Blood 151 mg/dL (60-115)
[2024-12-14 11:41] LABS: Anion Gap 10 (12-20); Blood Urea Nitrogen 18 mg/dL (9-16); Calcium 8.1 mg/dL (8.4-10.2); Carbon Dioxide 26 mmol/L (22-29); Chloride 106 mmol/L (96-108); Creatinine Clr Calc Pharmacy 63.8; Estimated Glomerular Filt Rate > 60; Potassium 3.8 mmol/L (3.3-5.1); Sodium 138 mmol/L (135-145)
[2024-12-14 15:35] VITALS: BP 159/73; PULSE 72; RESP 16; TEMP 36.8; O2SAT 97
[2024-12-14 16:24] LABS: Glucose, Whole Blood 84 mg/dL (60-115)
[2024-12-14 20:00] VITALS: BP 176/80; PULSE 84; RESP 14; TEMP 36.7; O2SAT 96
[2024-12-14 20:32] LABS: Glucose, Whole Blood 119 mg/dL (60-115)
[2024-12-14] MEDS: Insulin Glargine,Hum.rec.anlog 100 UNIT/ML 10 ML VIAL 10 UNIT SUBCUT (21:40)
[2024-12-14 23:57] LABS: Magnesium 1.9 mg/dL (1.6-2.6)
[2024-12-15 03:21] VITALS: BP 126/64; PULSE 73; RESP 18; TEMP 36.6; O2SAT 95
[2024-12-15 07:26] VITALS: BP 170/78; PULSE 69; RESP 15; TEMP 36.1; O2SAT 95
[2024-12-15] MEDS: Ferrous Sulfate 324 MG TABLET.DR PO (07:45)
[2024-12-15] MEDS: 0.9 % Sodium Chloride Flush 3 ML SYRINGE IVFLUSH (07:46)
[2024-12-15 07:47] LABS: Glucose, Whole Blood 103 mg/dL (60-115)
[2024-12-15] MEDS: Milk of Magnesia 30 ML ORAL.SUSP PO (07:54)
[2024-12-15 11:22] LABS: Glucose, Whole Blood 125 mg/dL (60-115)
[2024-12-15 13:26] VITALS: BP 179/83; PULSE 71
[2024-12-15 15:22] VITALS: BP 183/83; PULSE 78; RESP 16; TEMP 36.3; O2SAT 98
[2024-12-15 16:00] VITALS: BP 162/80; RESP 18; TEMP 36.4
--- NOTE | 2024-12-15 16:17 | MHC.CM.PN ---
PT CLEARED TO CO HOME WITH NO NEW SERVICES SHE REPORTS SHE WILL CALL HER SISTER FOR TRANSPORT
[2024-12-15 16:28] LABS: Glucose, Whole Blood 98 mg/dL (60-115)
== END 2024-12-15 18:12 | disposition home or self-care (01) | DRG 871 ==
LOC: HO.ED 19:57 → HO.EDOVER 20:04 → HO.S3 12-13 03:05
PROVIDERS: Physician Assistant Medical; Admitting Provider Internal Medicine; Emergency Provider Emergency Medicine; PCP Internal Medicine; Visit Provider Internal Medicine
DX: A41.9 Sepsis, unspecified organism (principal); G93.41 Metabolic encephalopathy; I69.354 Hemiplegia and hemiparesis following cerebral infarction affecting left non-dominant side; N10 Acute pyelonephritis; E78.5 Hyperlipidemia, unspecified; I10 Essential (primary) hypertension; B96.1 Klebsiella pneumoniae [K. pneumoniae] as the cause of diseases classified elsewhere; R65.20 Severe sepsis without septic shock; I69.392 Facial weakness following cerebral infarction; E83.42 Hypomagnesemia; Z79.84 Long term (current) use of oral hypoglycemic drugs; Z79.85 Long-term (current) use of injectable non-insulin antidiabetic drugs; Z79.899 Other long term (current) drug therapy
CPT/HCPCS: 36415; 71045; 74177; 80048; 80053; 80307; 81001; 82947; 83605; 83735; 84484; 85007; 85025; 85027; 87040; 87077; 87086; 87088; 87186; 87205; 87637; 93005; 99285; J0131; J0360; J0696; J1171; J1650; J1885; J2405; J3475; J7120; Q9967

== ENCOUNTER → 2024-12-12 14:22 | Outpatient (BNV) | payer OTHER, SELFPAY | PROVIDERS: Admitting Provider Internal Medicine; Emergency Provider Emergency Medicine; PCP Internal Medicine; Visit Provider Internal Medicine Cardiovascular Disease | DX: R42 Dizziness and giddiness (principal) | CPT/HCPCS: 93010 ==

== ENCOUNTER → 2024-12-12 17:56 | Outpatient (BNV) | payer OTHER, SELFPAY | PROVIDERS: Emergency Provider Emergency Medicine; PCP Internal Medicine; Visit Provider Radiology Diagnostic Radiology | DX: R50.9 Fever, unspecified (principal) | CPT/HCPCS: 71045 ==

== ENCOUNTER 2024-12-12 20:01 | Outpatient (BNV) | payer OTHER, SELFPAY | END 2024-12-13 04:41 | PROVIDERS: Admitting Provider Internal Medicine; Emergency Provider Emergency Medicine; PCP Internal Medicine; Visit Provider Radiology Diagnostic Radiology | DX: K57.30 Diverticulosis of large intestine without perforation or abscess without bleeding (principal); N10 Acute pyelonephritis | CPT/HCPCS: 74177 ==

== ENCOUNTER → 2024-12-12 20:01 | Outpatient (BNV) | payer OTHER, SELFPAY | PROVIDERS: Admitting Provider Internal Medicine; Emergency Provider Emergency Medicine; PCP Internal Medicine; Visit Provider Internal Medicine | DX: N30.00 Acute cystitis without hematuria (principal); A41.9 Sepsis, unspecified organism; R65.20 Severe sepsis without septic shock; G93.40 Encephalopathy, unspecified | CPT/HCPCS: 99223; 99232 ==

== ENCOUNTER 2024-12-19 10:03 | Outpatient (REF) | payer OTHER, SELFPAY ==
--- OUTSIDE RECORDS SUMMARY | 2024-12-19 11:15 | XMS_ITS | Clinical Summary ---
Author Organization Merged With [facility] Address [address] [place] [phone] Phone Care Team Providers Care Stapler Hand Name Role Phone Unknown, Unknown Primary Care [...] topic Medical Devices Not on file Insurance [employer] MEDICARE PART A & B [facility] ONE CARE MEDICARE REPLACEMENT [employer] [place] [phone] MEDICARE PART A & B [facility] ONE CARE MEDICARE REPLACEMENT [employer] MEDICARE PART A & B Member Subscriber Plan / Payer (Ef fective 1988-Present) Name:Alexandra Gonzales Member ID:[id number] Relation to Subscriber:Self Name:Alexandra Gonzales Subscriber ID:[id number] Payer ID:[id number] Group ID:Not on file Type:Medicare Address: [employer] [address] ONE CARE MEDICARE REPLACEMENT [facility] [place] [phone] MEDICARE PART A & B [facility] ONE CARE MEDICARE REPLACEMENT [facility] CARE MEDICARE PART A & B [facility] ONE CARE MEDICARE REPLACEMENT [employer] MEDICARE PART A & B [facility] ONE CARE MEDICARE REPLACEMENT [facility] ONE CARE MEDICARE PART A & B [facility] ONE CARE MEDICARE REPLACEMENT [facility] ONE CARE MEDICARE PART A & B [facility] ONE CARE MEDICARE REPLACEMENT [employer] ONE C[employer] MEDICARE PART A & B [facility] ONE CARE MEDICARE REPLACEMENT Care Teams Stapler Hand Relationship Specialty Start Date End Date Unknown, Unknown, PCP - General 01/01/15 Additional Source Comments The information contained in this document represents components of the legal health record. It is not the complete legal health record.Merged With [facility]
--- OUTSIDE RECORDS SUMMARY | 2024-12-19 11:15 | XMS_ITS | Clinical Summary ---
Author Organization [facility] ity Address [address] [place] [address] Care Team Providers Care Dining Manager Name Role Phone Unavailable Primary Care Provider [...]
[2024-12-19 13:21] LABS: Appearance Urine Clear; Glucose Urine UA 100 mg/dL (Negative); PH 7.0 (5.0-9.0); Specific Gravity - Urine 1.015 (1.005-1.025); UMIC TRIGGER UACC YES
[2024-12-19 13:24] LABS: UACC Culture Trigger YES
== END 2024-12-19 10:04 | disposition home or self-care (01) ==
LOC: HO.HMGCLDS 10:03
PROVIDERS: PCP Internal Medicine; Visit Provider Internal Medicine
DX: R82.90 Unspecified abnormal findings in urine (principal); Z87.440 Personal history of urinary (tract) infections
CPT/HCPCS: 81001; 87086

== ENCOUNTER 2024-12-26 13:21 | Outpatient (AMB) | payer OTHER, SELFPAY ==
[2024-12-26 14:12] VITALS: BP 136/90; PULSE 68; RESP 16; TEMP 36.9; O2SAT 98; BMI 31.0
--- NOTE | 2024-12-26 14:12 | A.OFFPC_ITS ---
Vital Signs 12/26/24 14:12 Height 5 ft Weight 159 lb BMI 31.0 BP 136/90 H Blood Pressure Location Rt brachial Position Sitting Respiration 16 Pulse 68 Pulse Source Pulse Oximeter Temp 98.5 F Temp Source Oral Pulse Oximetry (%) 98 Oxygen Delivery Method Room Air Intake Visit Reasons: [facility] [place] f/u Allergies No Known Allergies (No Known Allergies*) Allergy (Verified 12/26/24 14:26) Medication List - Last Reconciled 12/26/24 by María Cooper MD [Adult pull-ups Use As directed NS] amlodipine 2.5 mg PO DAILY atorvastatin 80 mg PO BEDTIME 3 months blood sugar diagnostic (FreeStyle Lite Strips) test blood sugar twice a day blood sugar diagnostic (FreeStyle Lite Strips) Check fasting blood sugar twice a day before meals blood-glucose meter (FreeStyle Lite Meter kit) Three times a day cefuroxime axetil 500 mg PO BID 11 days [diaphers As directed NS] dulaglutide 1.5 mg subcut TH ezetimibe 10 mg PO DAILY ferrous sulfate 325 mg PO DAILY [Hand-held shower Use As directed NS] ibuprofen 600 mg PO BID PRN lancing device As directed lisinopril-hydrochlorothiazide 10-12.5 mg 1 tab PO DAILY meclizine 12.5 mg PO TID PRN 5 days metformin 500 mg PO DAILY miscellaneous medical supply Use As directed NS [Raised toilet seat As directed NS] [Re-usable bed pads Use As directed NS] [To [facility] .?Occupational Therapy evaluation for functional community mobility. 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 CT scan done showed new significant left pyelonephritis and mild bladder wall thickening suspicious for cystitis. Both urine and blood culture grew Klebsiella pneumoniae sensitive to ceftriaxone. She was given a dose of ceftriaxone 2 g IV, with resolution of fever and normalization of white blood cell count, she was then transition to cefuroxime 5 00 mg to be taken 1 tablet twice a day for a total of 14 days. Patient however states that she only took 3 days' worth of her antibiotics and accidentally spilled the in the sink. At present patient states that she is feeling much better, afebrile, no abdominal or back pain reported, no burning on urination, no urinary frequency but now complains of vaginal itching since she started taking antibiotics. [facility] Medical History History of adenomatous polyp of colon Iron deficiency anemia Hx of cancer of uterus Diabetes mellitus with retinopathy History of CVA with residual deficit Atherosclerotic cardiovascular disease Intracranial atherosclerosis Normocytic normochromic anemia Cancer History of degenerative joint disease GERD (gastroesophageal reflux disease) Sleep apnea Asthma Depression Vitamin D deficiency Essential hypertension Dyslipidemia Type 2 diabetes mellitus without complication, without long-term current use of insulin Surgical History Hx of hand surgery History of carpal tunnel release Hx of endoscopy Hx of colonoscopy Hx of cholecystectomy History of total abdominal hysterectomy Family History Father Cancer Mother Cancer Myocardial infarction Family/Other Diabetes Social History Household Members: None Housing: Apartment Do you presently have visiting nurse 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 Depression Screening Interpretation: Negative Depression Screening Done: Yes Source: Developed by Drs. Manish Eckert, Lola Bernard, Enrique Red and colleagues, with an educational jaime from [employer]. Thrive Questionnaire Date Thrive assessed: 12/13/24 HAVEN-7 AMB Questionnaire HAVEN-7 Date HAVEN - 7 assessed: 08/23/24 Source: Developed by Drs. Manish Eckert, Lola Bernard, Enrique Red and colleagues, with an educational jaime from [employer]. Review of Systems Const Reports as per HPI Eyes Details: Goes to [facility] ENT Denies neck pain Card Denies chest pain, Denies palpitations and Denies dyspnea Resp Denies cough and Denies dyspnea GI Denies abdominal pain, Denies melena, Denies change in bowel habits and Denies heartburn Reports as per HPI Musc Reports muscle weakness (left arm, unchanged), Denies neck pain, Reports numbness (left arm), Reports stiffness and Reports tingling (left arm) Neuro Reports numbness (left arm) and Reports tingling (left arm) Endo Reports cold intolerance (left upper extremity), Denies polydipsia, Denies polyuria and Denies palpitations Rodrigo/Lymph Denies easy bruising Aller/Immun Reports no additional complaints Physical exam (Primary Care) Vital Signs: Last Vital Signs Temp 98.5 F 12/26/24 14:12 Pulse 68 12/26/24 14:12 Resp 16 12/26/24 14:12 BP 136/90 H 12/26/24 14:12 Pulse Ox 98 12/26/24 14:12 Oxygen Delivery Method Room Air 12/26/24 14:12 BMI result Body Mass Index 31.0 Tobacco/Smoking Status: Tobacco use Status Tobacco use date assessed 12/26/24 12/26/24 14:17 Patient Tobacco Use Status Never used Tobacco 12/26/24 14:17 e-Cigarette/Vaping Use Never Used 12/26/24 14:17 Depression Screening Interpretation: Negative Thrive Assessment: Date of Thrive Assessment Date Thrive assessed 12/13/24 12/26/24 14:17 Const General: no acute distress and alert Orientation/consciousness: patient oriented x3 HENMT Head: Yes normocephalic General nose exam: Normal external nose present and No nasal discharge present Face and sinus: Yes Flattened naso-labial fold present (On left, Unchanged from previous visits) Mouth: Normal oral and palatal mucosa present, tongue normal (Midline on protrusion), oropharynx normal and moist mucous membranes Eyes General: appearance normal, both eyes and all related structures Neck Neck: Yes full ROM, Yes no lymphadenopathy and Yes supple Resp Effort & Inspection: normal respiratory effort and able to speak in complete sentences Auscultation: clear to auscultation bilaterally Cardio Rate: regular rate Rhythm: regular rhythm Heart sounds: S1 normal heart sound present and S2 normal heart sound present GI Inspection: Yes normal to inspection Palpation (GI): Soft to palpation, nontender and no masses Auscultation: normal bowel sounds Other: Erythematous vaginal mucosa, no active discharge General: Yes no CVA tenderness Back/Spine/Pelvis Back: no CVA tenderness Skin General skin exam: no rashes or lesions noted Nails: yellow and thickened (Big toenails on both feet) Neuro General: patient oriented x3 Cognition (Neuro): normal cognition Extrem Other: Left arm with contracture deformity Results AMB Urinalysis, Automated UA Leukoctes 0 Ty/uL Last Edit by Shasta Mcclellan CMA on 12/26/24 14:50 UA Nitrite Negative Last Edit by Shasta Mcclellan CMA on 12/26/24 14:50 UA Urobilinogen 0.2 mg/dL Last Edit by Shasta Mcclellan CMA on 12/26/24 14:50 UA Protein 15 mg/dL Last Edit by Shasta Mcclellan CMA on 12/26/24 14:50 UA pH 6.0 Last Edit by Shasta Mcclellan CMA on 12/26/24 14:50 UA Blood 10 Carlo/uL Last Edit by Shasta Mcclellan CMA on 12/26/24 14:50 UA Specific [place] 1.020 Last Edit by Shasta Mcclellan CMA on 12/26/24 14:50 UA Ketone Negative Last Edit by Shasta Mcclellan CMA on 12/26/24 14:50 UA Bilirubin 0 mg/dL Last Edit by Shasta Mcclellan CMA on 12/26/24 14:50 UA Glucose 0 mg/dL Last Edit by Shasta Mcclellan CMA on 12/26/24 14:50 Coding Level of Care Code Est Pt Level 4 (32369) Diagnoses History of urinary tract infection Z87.440 Iron deficiency anemia, unspecified iron deficiency anemia type D50.9 Iron deficiency anemia type: unspecified iron deficiency History of acute pyelonephritis Z87.448 History of bacteremia Z87.898 Vaginal itching N89.8 Assessment & Plan Assessment & Plan (1) History of urinary tract infection: Code(s): Z87.440 - Personal history of urinary (tract) infections (2) Iron deficiency anemia: Code(s): D50.9 - Iron deficiency anemia, unspecified Category: Medical Qualifiers: Iron deficiency anemia type: unspecified iron deficiency Qualified Code(s): D50.9 - Iron deficiency anemia, unspecified (3) History of acute pyelonephritis: Code(s): Z87.448 - Personal history of other diseases of urinary system (4) History of bacteremia: Code(s): Z87.898 - Personal history of other specified conditions (5) Vaginal itching: Code(s): N89.8 - Other specified noninflammatory disorders of vagina Plan Prescription sent for 10 more days of cefuroxime 500 mg to take 1 every 12 hours with food. Prescription also sent for fluconazole 150 mg per tablet to take 1 tablet now for vaginal itching, and may repeat another dose after 3 days if symptoms persist or not completely resolved. Drink plenty of water. Repeat urinalysis done today which showed only presence of trace microhematuria, no nitrites or leukocytes seen. Reinforced importance of improved eating habits, eat 3 meals a day not just dinner and eat more nutritious food like bone broth with vegetables, eggs. Continue with iron supplements, repeat another CBC with iron profile next week. Will see her back for follow-up and physical exam on March 2025 Orders: Orders AMB Urinalysis Automated Today Z13.9 - Encounter for screening, unspecified IRON PROFILE Today E78.5 - Hyperlipidemia, unspecified, I10 - Essential (primary) hypertension, N30.00 - Acute cystitis without hematuria, Z86.69 - Personal history of other diseases of the nervous system and sense organs, Z87.440 - Personal history of urinary (tract) infections Complete Blood Count Auto Diff Today E78.5 - Hyperlipidemia, unspecified, I10 - Essential (primary) hypertension, N30.00 - Acute cystitis without hematuria, Z86.69 - Personal history of other diseases of the nervous system and sense organs, Z87.440 - Personal history of urinary (tract) infections Medications: New fluconazole 150 mg PO Q3D 2 tabs 0RF 2 doses blood pressure monitor As directed 1 ea 0RF I10 - Essential (primary) hypertension Changed From cefuroxime axetil 500 mg PO BID 11 days 22 tabs 0RF To cefuroxime axetil 500 mg PO BID 10 days 20 tabs 0RF Refilled blood-glucose meter (FreeStyle Lite Meter kit) Three times a day 1 ea 0RF E11.9 - Type 2 diabetes mellitus without complications cefuroxime axetil 500 mg PO BID 20 tabs 0RF 10 days Discontinued amlodipine (Norvasc) Discontinued Reason: Entered in error 10 mg PO DAILY
--- OUTSIDE RECORDS SUMMARY | 2024-12-26 14:12 | XMS_ITS | Clinical Summary ---
Author Organization [facility] ity Address [address] [place] [address] Care Team Providers Care Supervisor Dry Paste Name Role Phone Unavailable Primary Care Provider [...]
--- OUTSIDE RECORDS SUMMARY | 2024-12-26 14:12 | XMS_ITS | Clinical Summary ---
Author Organization [facility] Address [address] [place] [phone] Phone Care Team Providers Care Marine Equipment Preservation Inspector Name Role Phone Unknown, Unknown Primary Care [...] topic Medical Devices Not on file Insurance [employer] ONE CARE MEDICARE PART A & B [facility] ONE CARE MEDICARE REPLACEMENT [employer] [place] [address] MEDICARE PART A & B [facility] ONE CARE MEDICARE REPLACEMENT [employer] ONE [employer] MEDICARE PART A & B Member Subscriber Plan / Payer (Ef fective 1988-Present) Name:Alexandra Gonzales Member ID:[id number] Relation to Subscriber:Self Name:Alexandra Gonzales Subscriber ID:[id number] Payer ID:[id number] Group ID:Not on file Type:Medicare Address: [employer] [address] ONE CARE MEDICARE REPLACEMENT [facility] [place] [phone] MEDICARE PART A & B [facility] ONE CARE MEDICARE REPLACEMENT [facility] CARE MEDICARE PART A & B [facility] ONE CARE MEDICARE REPLACEMENT [employer] ONE CARE MEDICARE PART A & B [facility] ONE CARE MEDICARE REPLACEMENT [facility] ONE CARE MEDICARE PART A & B [facility] ONE CARE MEDICARE REPLACEMENT [facility] ONE CARE MEDICARE PART A & B [facility] ONE CARE MEDICARE REPLACEMENT [employer] ONE CARE MEDICARE PART A & B [facility] ONE CARE MEDICARE REPLACEMENT Care Teams Marine Equipment Preservation Inspector Relationship Specialty Start Date End Date Unknown, Unknown, PCP - General 01/01/15 Additional Source Comments The information contained in this document represents components of the legal health record. It is not the complete legal health record.[facility]
== END 2024-12-26 15:05 | disposition home or self-care (01) ==
LOC: HO.HMCC 13:22
PROVIDERS: PCP Internal Medicine; Visit Provider Internal Medicine
DX: Z87.440 Personal history of urinary (tract) infections (principal); D50.9 Iron deficiency anemia, unspecified; Z87.448 Personal history of other diseases of urinary system; Z87.898 Personal history of other specified conditions; N89.8 Other specified noninflammatory disorders of vagina; Z13.9 Encounter for screening, unspecified

== ENCOUNTER → 2024-12-26 13:21 | Outpatient (BNVA) | payer OTHER, SELFPAY | PROVIDERS: PCP Internal Medicine; Visit Provider Internal Medicine | DX: E11.9 Type 2 diabetes mellitus without complications (principal); I10 Essential (primary) hypertension; E78.5 Hyperlipidemia, unspecified; G47.33 Obstructive sleep apnea (adult) (pediatric); D50.9 Iron deficiency anemia, unspecified; N89.8 Other specified noninflammatory disorders of vagina; Z87.440 Personal history of urinary (tract) infections; Z87.448 Personal history of other diseases of urinary system; Z87.898 Personal history of other specified conditions; Z86.73 Personal history of transient ischemic attack (TIA), and cerebral infarction without residual deficits | CPT/HCPCS: 81003; 99212 ==

== ENCOUNTER 2025-01-10 10:34 | Outpatient (AMB) | payer OTHER, SELFPAY ==
--- NOTE | 2025-01-10 10:39 | A.OFFVIS_ITS ---
Vital Signs 01/10/25 10:45 Height 5 ft Weight 158 lb BMI 30.9 Intake Visit Reasons: New Pt - Bilateral Diabetic Exam & Toenail Fungus Intake Note: Ada is a 59 year old female who presents today as a new patient for bilateral diabetic foot exam & toenail abnormality of left great toes. PCP reported that the great toenails appear yellow and thickened. Patient reports she has tried baking soda mixed with vinegar and alcohol and her toe nail slightly cleared up.She also mentions pain in the lateral border of the left great toe. Guidance Consultant Required: Yes Guidance Consultant Services: Guidance Consultant Offered & Declined Allergies No Known Allergies (No Known Allergies*) Allergy (Verified 01/10/25 10:46) Medication List - Last Reconciled 01/10/25 by Donald Mcmanus DPM [Adult pull-ups Use As directed NS] amlodipine 2.5 mg PO DAILY atorvastatin 80 mg PO BEDTIME 3 months blood pressure monitor As directed blood sugar diagnostic (FreeStyle Lite Strips) test blood sugar twice a day blood sugar diagnostic (FreeStyle Lite Strips) Check fasting blood sugar twice a day before meals blood-glucose meter (FreeStyle Lite Meter kit) Three times a day cefuroxime axetil 500 mg PO BID 10 days ciclopirox 0.77% 1 appl topical BID 4 weeks [diaphers As directed NS] dulaglutide 1.5 mg subcut TH ezetimibe 10 mg PO DAILY ferrous sulfate 325 mg PO DAILY fluconazole 150 mg PO Q3D 2 doses [Hand-held shower Use As directed NS] ibuprofen 600 mg PO BID PRN lancing device As directed lisinopril-hydrochlorothiazide 10-12.5 mg 1 tab PO DAILY meclizine 12.5 mg PO TID PRN 5 days miscellaneous medical supply Use As directed NS [Raised toilet seat As directed NS] [Re-usable bed pads Use As directed NS] terbinafine HCl 1% (Lamisil AT) 1 appl topical BID [To [facility] .?Occupational Therapy evaluation for functional community mobility. NS] HPI HPI New Pt - Bilateral Diabetic Exam & Toenail Fungus: Details: The patient is a 59-year-old female past medical history of diabetes mellitus type 2, CVA with mild lower extremity weakness, who presents today for diabetic foot evaluation and discolored toenails. The patient has a history of diabetes mellitus, managed with Trulicity, and her recent hemoglobin A1c was 7.3%. She has experienced four strokes, affecting her mobility on one side, but denies any numbness burning or tingling to her feet. She denies any history of wounds. She states that her nails have been discolored for several years and she suspected at to be due to a fungal infection. The discoloration was initially darker and has been treated with vinegar, baking soda, and alcohol, which has lightened the color. The patient reports pain when the left great toe nail is touched, and the nail is partially detached. Patient also reports that she had stubbed her left 2nd toe and as a dark discoloration to her toe that hurts when walking. She had not received any x- rays or sought treatment. She is unsure exactly when this happened however thinks it was within the past few weeks. [facility] Medical History History of adenomatous polyp of colon Iron deficiency anemia Hx of cancer of uterus Diabetes mellitus with retinopathy History of CVA with residual deficit Atherosclerotic cardiovascular disease Intracranial atherosclerosis Normocytic normochromic anemia Cancer History of degenerative joint disease GERD (gastroesophageal reflux disease) Sleep apnea Asthma Depression Vitamin D deficiency Essential hypertension Dyslipidemia Type 2 diabetes mellitus without complication, without long-term current use of insulin Surgical History Hx of hand surgery History of carpal tunnel release Hx of endoscopy Hx of colonoscopy Hx of cholecystectomy History of total abdominal hysterectomy Family History Father Cancer Mother Cancer Myocardial infarction Family/Other Diabetes Social History Household Members: None Housing: Apartment Do you presently have 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) Alcohol intake: never Patient Tobacco Use Status: Never used Tobacco e-Cigarette/Vaping Use: Never Used Second Hand Smoke Exposure: No Advance Directives Date on File: 01/20/21 service: No Current occupational status: disabled Current occupation: rt handed Cognitive needs: No Hearing needs: No Vision needs: No Review of Systems Const All systems reviewed & are unremarkable except as noted in HPI and below Physical Exam Vital Signs: BMI result Body Mass Index 30.9 Extrem Other: *Bilateral Lower Extremity Focused Diabetic Foot Exam Vascular: DP/PT 2/4 bilaterally, CFT<3s to digits, TG warm to cool, no pedal edema, pedal hair absent Derm: Skin is supple with pink hue appearance. Skin: Contusion to the medial aspect of the left 2nd middle phalanx. Interdigital spaces: Left 4th interspace with white maceration. Nails: Discolored, thickened nails left digits upon 3 and 4. Left hallux nail as 70% detached and the lifting on the lateral and central aspect of the nail. Neuro: Sterling-lois monofilament (10g) test 10/10 intact to right foot, 10/10 intact to left foot. Msk: Mild tenderness on palpation of the left 2nd toe along the middle phalanx, mild pain on range of motion of the toe. Deformities: Semi rigid hammertoe deformities bilaterally digits 2 through 5. Mild bunions, no Charcot changes, or other structural abnormalities. Muscle strength: 5/5 right foot, 4+ out of 5 left foot. Gait: Normal, no antalgic or steppage gait observed. Footwear Assessment: Shoes inspected; appropriate fit, no excessive wear, or foreign objects noted. 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 She does however have a benign fungal infection to her feet, which can lead to superimposed bacterial infection. No loss of protective sensation. Patient has palpable pulses.. No plans for further testing/referrals for non-invasive vascular studies at this time. Patient is at low risk for diabetic foot complications at this time. Recommendations: Continue routine foot care and daily self-inspection. Recommend moisturizing daily. Recommend supportive proper fitting shoe-wear. The patient may require diabetic shoes in the future. Reinforced diabetic foot education and risks from peripheral neuropathy. (2) Tinea pedis of left foot: Code(s): B35.3 - Tinea pedis Category: Medical Plan: * Rx Lamisil topical ointment to be applied to the left 4th interspace. * Follow-up in 1 month. If symptoms persist, will alternate medication selection. (3) Tinea unguium: Code(s): B35.1 - Tinea unguium Category: Medical Plan: * Nail biopsy performed of left hallux nail. * Rx ciclopirox. * Discussed options for oral antifungal medication which the patient deferred at this time. (4) Onycholysis: Code(s): L60.1 - Onycholysis Category: Medical Plan: * Resected approximately 50% of the nail due to onycholysis. Discussed possible total nail avulsion if her pain persists. Discussed possible likelihood of her nail not growing back due to the chronicity of her likely fungal nail infection as well as her diabetes. (5) Contusion of second toe, left: Code(s): S90.122A - Contusion of left lesser toe(s) without damage to nail, initial encounter Category: Medical Plan: * Rx x-ray left foot three views. * No indication for bettina splinting at this time. Continue supportive shoe wears as tolerated. Orders: Orders XR Foot Trey 3V Today S90.122A - Contusion of left lesser toe(s) without damage to nail, initial encounter Surgical Today B35.1 - Tinea unguium Fungus Cult Hair/Skin/Nail Today B35.1 - Tinea unguium AMB Debridement/Avulsion Podiatry Today B35.1 - Tinea unguium Medications: New ciclopirox 0.77% 1 appl topical BID 60 mL 3RF Tinea unguim 4 weeks B35.1 - Tinea unguium terbinafine HCl 1% (Lamisil AT) 1 appl topical BID 15 grams 3RF B35.3 - Tinea pedis Coding Level of Care Code New Pt Level 4 (31438) Diagnoses 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, without long-term current use of insulin E11.3553 Diabetes mellitus type: type 2 Diabetes mellitus usp insulin use: without terminal operations supervisor use Diabetic retinopathy severity: with proliferative retinopathy Proliferative retinopathy type: stable Laterality: bilateral Tinea pedis of left foot B35.3 Tinea unguium B35.1 Onycholysis L60.1 Contusion of second toe, left S90.122A CPT Codes Skin Debridement - CPT: 30412-Glkmrzyfoar of Nail <6 ([id number]) Skin Debridement - CPT: 83311 Nail unit biopsy ([id number]) Time Spent (min) 48
[2025-01-10 10:45] VITALS: BMI 30.9
--- OUTSIDE RECORDS SUMMARY | 2025-01-10 13:06 | XMS_ITS | Clinical Summary ---
Author Organization [facility] Address [address] [place] [phone] Phone Care Team Providers Care Insurance Adjuster Name Role Phone Unknown, Unknown Primary Care [...] HEPATITIS C SCREENING 1981 HIV ONE-TIME SCREENING (18-65 YEARS) 1981 PAP SMEAR 1984 MAMMOGRAM 2003 Adult Td,Tdap Booster 05/02/2005 05/02/1995 COLOGUARD 2008 COLONOSCOPY 2008 COLORECTAL CANCER SCREENING 2008 FIT TEST 2008 FOBT 2008 SIGMOIDOSCOPY 2008 VIRTUAL COLONOSCOPY 2008 ZOSTER VACCINES (1 of 2) 2013 PNEUMOCOCCAL VACCINES (50+ years) (2 of 2 - PCV) 08/25/2018 08/25/2017, 12/15/2006, 06/02/2001 INFLUENZA VACCINE (#1) 2024 , 04/17/2019, 03/31/2018, Additional history exists COVID-19 VACCINE ( - 2024- season) 2025 10/03/2020, 09/05/2020 RSV VACCINE (1 - 1-dose [...] topic Medical Devices Not on file [place] [address] [place] [address] TOTAL ONE CARE MEDICARE PART A & B [facility] ONE CARE MEDICARE REPLACEMENT [place] ONE CARE MEDICARE PART A & B [facility] ONE CARE MEDICARE REPLACEMENT [place]OTAL ONE CARE MEDICARE PART A & B ONE CARE MEDICARE REPLACEMENT [place] [address] ONE CARE MEDICARE PART A & B [facility] CARE MEDICARE REPLACEMENT [facility] CARE MEDICARE PART A & B [facility] CARE MEDICARE REPLACEMENT [place] ONE CARE MEDICARE PART A & B [facility] ONE CARE MEDICARE REPLACEMENT [place] ONE CARE MEDICARE PART A & B [facility] ONE CARE MEDICARE REPLACEMENT [facility] ONE CARE MEDICARE PART A & B [facility] CARE MEDICARE REPLACEMENT [place] ONE CARE MEDICARE PART A & B [facility] ONE CARE MEDICARE REPLACEMENT Care Teams Insurance Adjuster Relationship Specialty Start Date End Date Unknown, Unknown, PCP - General 01/01/15 Additional Source Comments The information contained in this document represents components of the legal health record. It is not the complete legal health record.[facility]
== END 2025-01-10 11:13 | disposition home or self-care (01) ==
LOC: HO.HPODS 10:35
PROVIDERS: PCP Internal Medicine; Visit Provider Student in an Organized Health Care Education/Training Program
DX: B35.1 Tinea unguium (principal); E11.3553 Type 2 diabetes mellitus with stable proliferative diabetic retinopathy, bilateral; B35.3 Tinea pedis; L60.1 Onycholysis; S90.122A Contusion of left lesser toe(s) without damage to nail, initial encounter
CPT/HCPCS: 11720; 99204

== ENCOUNTER 2025-01-10 10:34 | Outpatient (REF) | payer OTHER, SELFPAY ==
--- OUTSIDE RECORDS SUMMARY | 2025-01-10 14:35 | XMS_ITS | Clinical Summary ---
Author Organization [facility] ity Address [address] [place] [address] Care Team Providers Care Transport Rn Name Role Phone Unavailable Primary Care Provider [...] 2013 Zoster Vaccines (1 of 2) 2013 Depression Screening 05/03/2024 COVID-19 Vaccine (1 - 2023-2 5 season) 2025 Influenza Vaccine (#1) 2025 RSV Immunization Adult [...]
== END 2025-01-10 10:35 | disposition home or self-care (01) ==
LOC: HO.LAB 10:34
PROVIDERS: PCP Internal Medicine; Visit Provider Student in an Organized Health Care Education/Training Program
DX: S90.122A Contusion of left lesser toe(s) without damage to nail, initial encounter (principal); B35.3 Tinea pedis; B35.1 Tinea unguium; E11.3553 Type 2 diabetes mellitus with stable proliferative diabetic retinopathy, bilateral; L60.1 Onycholysis
CPT/HCPCS: 11720; 11755; 99202

== ENCOUNTER 2025-01-10 11:27 | Outpatient (REF) | payer OTHER, SELFPAY | END 2025-01-10 11:28 | disposition home or self-care (01) | LOC: HO.LNP 11:27 | PROVIDERS: Visit Provider Student in an Organized Health Care Education/Training Program | DX: B35.1 Tinea unguium (principal) | CPT/HCPCS: 87101; 87107; 87220; 88304; 88312 ==

== ENCOUNTER 2025-02-01 10:51 | Outpatient (REF) | payer OTHER, SELFPAY ==
--- OUTSIDE RECORDS SUMMARY | 2025-02-01 12:45 | XMS_ITS | Clinical Summary ---
Author Organization [facility] ity Address [address] [place] [address] Care Team Providers Care Component Design Engineer Name Role Phone Unavailable Primary Care Provider [...]
--- OUTSIDE RECORDS SUMMARY | 2025-02-01 12:45 | XMS_ITS | Clinical Summary ---
Author Organization [facility] Address [address] [place] [phone] Phone Care Team Providers Care Bench Assembler Operator Name Role Phone Unknown, Unknown Primary Care [...] topic Medical Devices Not on file [place] [address] [address] [place] [address] TOTAL ONE CARE MEDICARE PART A & B [facility] ONE CARE MEDICARE REPLACEMENT [place] TOTAL ONE CARE MEDICARE PART A & B [facility] ONE CARE MEDICARE REPLACEMENT [place] ONE CARE MEDICARE PART A & B ONE CARE MEDICARE [place] [address] [place] [address] ONE CARE MEDICARE PART A & B [facility] CARE MEDICARE REPLACEMENT [facility] CARE MEDICARE PART A & B [facility] CARE MEDICARE REPLACEMENT [place] ONE CARE MEDICARE PART A & B [facility] ONE CARE MEDICARE REPLACEMENT [place]OTAL ONE CARE MEDICARE PART A & B [facility] ONE CARE MEDICARE REPLACEMENT [facility] ONE CARE MEDICARE PART A & B [facility] CARE MEDICARE REPLACEMENT [place] TOTAL ONE CARE MEDICARE PART A & B [facility] ONE CARE MEDICARE REPLACEMENT Care Teams Bench Assembler Operator Relationship Specialty Start Date End Date Unknown, Unknown, PCP - General 01/01/15 Additional Source Comments The information contained in this document represents components of the legal health record. It is not the complete legal health record.[facility]
[2025-02-01 13:14] LABS: MANUAL DIFF FLAG NO
[2025-02-01 13:26] LABS: Hematocrit 32.4 % (37.0-47.0); Hemoglobin 10.8 g/dl (12.0-16.0); Imm Gran Abs Auto 0.02 X10*3/uL (0.00-0.03); Imm Gran Pct Auto 0.3 % (0.0-0.4); Lymphocytes Absolute Auto 1.3 X10*3/uL (1.2-4.9); Mean Corpuscular HGB Conc 33.3 g/dl (31.0-35.0); Mean Corpuscular Hemoglobin 28.1 pg (27.0-33.0); Mean Corpuscular Volume 84.4 fL (80.0-98.0); NRBC Abs Auto 0.000 X10*3/uL (0.0-0.012); NRBC Pct Auto 0.0 /100WBC (0.0-0.2); Platelet Count 250 X10*3/uL (160-400); Red Blood Count 3.84 X10*6/uL (4.20-5.50); White Blood Count 7.1 X10*3/uL (4.8-10.8)
[2025-02-01 14:03] LABS: Iron 68 mcg/dL (30-160); Percent Iron Saturation 26 % (15-50); Total Iron Binding Capacity 260 mcg/dL (228-428); Unsaturated Iron Binding 192 ug/dL
== END 2025-02-01 10:52 | disposition home or self-care (01) ==
LOC: HO.HMGCLDS 10:51
PROVIDERS: PCP Internal Medicine; Visit Provider Internal Medicine
DX: I10 Essential (primary) hypertension (principal); E78.5 Hyperlipidemia, unspecified; N30.00 Acute cystitis without hematuria; Z87.440 Personal history of urinary (tract) infections; Z86.69 Personal history of other diseases of the nervous system and sense organs
CPT/HCPCS: 36415; 83540; 85025

== ENCOUNTER 2025-02-14 16:11 | Inpatient (IN) | payer OTHER, SELFPAY ==
--- NOTE | ~2025-02-14 | CT_ITS ---
CLINICAL HISTORY: left flak pain, ?pyelo CT abdomen and pelvis with contrast Comparison: CT - CT ABDOMEN PELVIS W IV CON - 02/14/25 19:48 EDT Findings: The lung bases are clear. The patient is status post cholecystectomy. There is mild associated intrahepatic and extrahepatic biliary ductal dilatation unchanged from the prior exam. No focal hepatic lesions are identified. Large right renal cyst is again noted unchanged. Left perinephric inflammatory changes are again noted diminished relative to the prior study. There is persistent in homogeneous enhancement of the left kidney compatible with pyelonephritis or focal bacterial nephritis. The rest of the solid organs are unremarkable. No bowel obstruction, pneumoperitoneum, or pneumatosis. There is colonic diverticulosis without evidence of diverticulitis. The urinary bladder demonstrates mild bladder wall thickening compatible with cystitis. No acute fracture. The rest of the GI tract is unremarkable. IMPRESSION: 1. Diminished left perinephric inflammatory changes with unchanged left renal parenchymal inhomogeneous enhancement compatible with pyelonephritis and/or focal bacterial nephritis. 2. Mild urinary bladder wall thickening suggests cystitis. Findings are unchanged. This document has been electronically signed by: Chapo Nelson MD on 02/14/2025 20:59:23
[2025-02-14 16:42] VITALS: BP 104/41; PULSE 94; O2SAT 99
[2025-02-14 16:48] VITALS: BP 122/65; PULSE 89; RESP 15; TEMP 37.3; O2SAT 95; BMI 32.6
--- NOTE | 2025-02-14 17:17 | ED_ITS ---
HPI - General Adult General Chief complaint: Abdominal Pain Stated complaint: weak, urine odor Time Seen by Provider: 02/14/25 17:17 History of Present Illness ED Provider: Kenneth CONTRERAS narrative: The patient is a 59-year-old female who has a history of a stroke which has left her with left-sided deficits. She comes to the hospital by ambulance because she has had increased urination and left flank pain associated with nausea, chills, and a headache for the past 2 or 3 days. She does not know if she has had a fever. She has had nausea but no vomiting. She has had a mild headache. No chest pain or shortness of breath. Related Data Home Medications ?Medication ?Instructions ?Recorded ?Confirmed dulaglutide 1.5 mg/0.5 mL 1.5 mg subcut TH 12/12/24 subcutaneous pen injector amlodipine 2.5 mg tablet 2.5 mg PO DAILY 12/26/2402/24 Previous Rx's ?Medication ?Instructions ?Recorded To [facility] #1 ea 04/06/23 blood sugar diagnostic (FreeStyle #100 ea 04/17/23 Lite Strips) lancing device #1 ea 04/18/23 Adult pull-ups #150 ea 05/17/24 Hand-held shower #1 ea 05/17/24 Raised toilet seat #1 ea 05/17/24 Re-usable bed pads #4 ea 05/17/24 diaphers #100 ea 05/17/24 miscellaneous medical supply #1 ea 05/17/24 lisinopril 10 1 tab PO DAILY #90 tabs 04/0 05/27 mg-hydrochlorothiazide 12.5 mg tablet meclizine 12.5 mg tablet 12.5 mg PO TID PRN vertigo 5 days 09/22/24 #20 tabs atorvastatin 80 mg tablet 80 mg PO BEDTIME 3 months #9 0 tabs 10/02/24 blood sugar diagnostic (FreeStyle #100 ea 10/02/24 Lite Strips) ezetimibe 10 mg tablet 10 mg PO DAILY #90 tabs 06/0 06/27 ferrous sulfate 325 mg (65 mg 325 mg PO DAILY #90 tabs 12/04/24 iron) tablet blood pressure monitor #1 ea 12/26/24 blood-glucose meter (FreeStyle #1 ea 12/26/24 Lite Meter kit) cefuroxime axetil 500 mg tablet 500 mg PO BID 10 days #20 tabs 12/26/24 fluconazole 150 mg tablet 150 mg PO Q3D 2 doses #2 tab s 12/26/24 ciclopirox 0.77 % topical 1 appl topical BID Tinea mariam uim 4 01/10/25 suspension weeks #60 mL terbinafine HCl 1 % topical cream 1 appl topical BID # 15 grams 01/10/25 (Lamisil AT) ibuprofen 600 mg tablet 600 mg PO BID PRN for pain # 40 tabs 01/24/25 Allergies Allergy/AdvReac Type Severity Reaction Status Date / Time No Known Allergies (No Known Allergy Verified 02/14/25 17:03 Allergies*) Review of Systems 2 Review of Systems: Yes all other systems are reviewed and are negative [facility] Past Medical History Medical History History of adenomatous polyp of colon Iron deficiency anemia Hx of cancer of uterus Diabetes mellitus with retinopathy History of CVA with residual deficit Atherosclerotic cardiovascular disease Intracranial atherosclerosis Normocytic normochromic anemia Cancer History of degenerative joint disease GERD (gastroesophageal reflux disease) Sleep apnea Asthma Depression Vitamin D deficiency Essential hypertension Dyslipidemia Type 2 diabetes mellitus without complication, without long-term current use of insulin Surgical History Hx of hand surgery History of carpal tunnel release Hx of endoscopy Hx of colonoscopy Hx of cholecystectomy History of total abdominal hysterectomy Family History Family History Father Cancer Mother Cancer Myocardial infarction Family/Other Diabetes Social History Social History Household Members: None Housing: Apartment Do you presently have visiting nurse or other home services: Yes (sand filler) Alcohol intake: never Patient Tobacco Use Status: Never used Tobacco Smoked in Last 30 Days: No e-Cigarette/Vaping Use: Never Used Second Hand Smoke Exposure: No Use of substances other than those prescribed or required for medical reasons: No Advance Directives: No Advance Directives Information Provided: No Advance Directives Date on File: 01/20/21 service: No Current occupational status: disabled Current occupation: rt handed Cognitive needs: No Hearing needs: No Vision needs: No Physical Exam ED Vital Signs: Vital Signs - 24 hr 02/14/25 16:48 02/14/25 17:52 02/14/25 19:16 Temperature 99.1 F 100.2 F 98.3 F Pulse Rate 89 77 80 Respiratory Rate 15 18 Blood Pressure 122/65 142/69 H 164/72 H Pulse Oximetry 95 93 96 Oxygen Delivery Method Room Air Room Air Room Air BMI result Body Mass Index 32.6 Const Other: The patient is a somewhat chronically ill-appearing 59-year-old. She has an obvious left-sided facial droop and some obvious left arm weakness. These findings are apparently chronic. She does not look obviously uncomfortable or toxic otherwise. HENMT Other: There is left-sided facial weakness. The face is otherwise unremarkable. Mucous membranes are moist. Eyes Other: Pupils are round equal, conjunctivae are clear, extraocular movements intact Neck Other: Neck is supple. No JVD. Resp Effort & Inspection: normal respiratory effort Auscultation: clear to auscultation bilaterally Cardio Rate: regular rate Rhythm: regular rhythm Heart sounds: S1 normal heart sound present and S2 normal heart sound present GI Other: The abdomen is soft and nontender Back/Spine/Pelvis Other: There is some left-sided CVA percussion tenderness Skin Other: Skin is dry and unremarkable Neuro Other: The patient is awake and alert with a normal mental status. There is lower left-sided facial weakness which I believe is chronic. She has some weakness of her left arm which is also chronic. Otherwise she moves her extremities reasonably well. I believe she is at her neurological baseline with chronic left-sided deficits. Extrem Other: No peripheral edema. Medications Administered Generic Name Dose Route Start Last Admin Trade Name Freq PRN Reason Stop Dose Admin Acetaminophen 975 mg 02/14/25 21:16 02/14/25 21:38 Acetaminophen 325 Mg Tablet PO 975 mg Q6H PRN Administration Pain, Mild 1-3,fever,headache Potassium Chloride 10 meq in 100 mls @ 100 mls/hr 02/14/25 18:30 02/14/25 20:53 Potassium Chloride/H20 IV 02/14/25 22:29 100 mls/hr Q1H BUSTER Administration Discontinued Medications Generic Name Dose Route Start Last Admin Trade Name Freq PRN Reason Stop Dose Admin Ceftriaxone Sodium 2 gm 10/15/25 18:34 02/14/25 18:57 Ceftriaxone Sodium 2 Gm Vial IVPUSH 02/14/25 18:35 2 gm ONCE ONE Administration Sodium Chloride 1,000 mls @ 999 mls/hr 02/14/25 17:45 02/14/25 20:53 Ns IV 02/14/25 18:45 Infused .Q1H1M BUSTER Infusion Iohexol 100 ml 02/14/25 20:00 02/14/25 20:00 Iohexol 350 Mg/Ml 100 Ml Infus..Btl IV 02/14/25 20:01 85 ml ONCE ONE Administration Morphine Sulfate 4 mg 02/14/25 17:46 02/14/25 18:07 Morphine Sulfate 4 Mg/Ml Cartridge IVPUSH 02/14/25 17:47 4 mg ONCE ONE Administration Protocol Ondansetron HCl 4 mg 02/14/25 17:46 02/14/25 18:07 Ondansetron Hcl 4 Mg/2 Ml Vial IVPUSH 02/14/25 17:47 4 mg ONCE ONE Administration Medical Decision Making Medical Decision Making MDM Narrative: The patient is a 59-year-old female. She presents complaining of 3 days of increased urinary frequency. She has had 1 day of feeling systemically ill with chills and also complains of some left flank pain. Clinically she has some left-sided CVA percussion tenderness. Her urinalysis is consistent with a urinary tract infection[place] [id number]. Blood cultures and a lactate were obtained and she was started on ceftriaxone. Her lactate was normal. She was given IV fluids. Additionally her potassium was 2.7. She was given potassium supplementation. The patient is a diabetic with a systemic infection and a high white count. She is hypokalemic. She feels unwell. She will be admitted to the hospitalist service. Lab Data 02/14/25 17:46 02/14/25 17:46 Labs: Lab Results 02/14/25 02/14/25 02/14/25 Range/Units 17:46 18:46 18:56 WBC 20.0 H (4.8-10.8) X10*3/uL RBC 3.61 L (4.20-5.50) X10*6/uL Hgb 10.2 L (12.0-16.0) g/dl Hct 30.7 L (37.0-47.0) % MCV 85.0 (80.0-98.0) fL MCH 28.3 (27.0-33.0) pg MCHC 33.2 (31.0-35.0) g/dl RDW 14.4 (11.0-16.0) % Plt Count 178 D (160-400) X10*3/uL MPV 10.3 (9.4-12.3) fL Immature Gran % (Auto) 0.8 H (0.0-0.4) % Neut % (Auto) 83.1 H (45-73) % Lymph % (Auto) 6.4 L (20-40) % [place] % (Auto) 9.2 (2-11) % Eos % (Auto) 0.2 (0-4) % Baso % (Auto) 0.3 (0-2) % Lymph # (Auto) 1.3 (1.2-4.9) X10*3/uL [place] # (Auto) 1.8 H (0.1-1.2) X10*3/uL Eos # (Auto) 0.1 (0.0-0.4) X10*3/uL Baso # (Auto) 0.1 (0.0-0.2) X10*3/uL Abs Immat Gran (auto) 0.16 H (0.00-0.03) X10*3/uL Absolute Neuts (auto) 16.6 H (2.0-8.3) x10*3/uL Absolute Nucleated RBC 0.000 (0.0-0.012) X10*3/uL Nucleated RBC % (auto) 0.0 (0.0-0.2) /100WBC Smear Tech's Comments VERIFIED VBG pH 7.44 H (7.32-7.43) VBG pCO2 38 mmHg VBG pO2 54 mmHg VBG HCO3 26 (22-26) mmol/L VBG O2 Saturation 83.0 % VBG Base Excess 2.3 mmol/L Sodium 141 (135-145) mmol/L Potassium 2.7 L* D (3.3-5.1) mmol/L Chloride 108 (96-108) mmol/L Carbon Dioxide 27 (22-29) mmol/L Anion Gap 9 L (12-20) BUN 19 H (9-16) mg/dL Creatinine 1.06 (0.5-1.4) mg/dL Estim Creat Clear Calc 48.5 Estimated GFR 53 Random Glucose 122 H (60-115) mg/dL Lactic Acid 1.0 (0.5-2.0) mmol/L Calcium 8.8 D (8.4-10.2) mg/dL Total Bilirubin 0.4 (0.0-1.0) mg/dL AST 17 (5-31) U/L ALT 10 (0-31) U/L Alkaline Phosphatase 69 (39-117) U/L Total Protein 7.1 (6.5-8.0) g/dL Albumin 3.4 L (3.5-5.0) g/dL Urine Color Yellow Urine Appearance Cloudy Urine pH 6.5 (5.0-9.0) Ur Specific [place] 1.015 (1.005-1.025) Urine Protein 100 (2+) H (Neg-Trace) mg/dL Urine Glucose (UA) Negative (Negative) mg/dL Urine Ketones Negative (Negative) mg/dL Urine Blood Small (1+) H (Negative) Urine Nitrite Positive H (Negative) Ur Leukocyte Esterase Moderate (2+) H (Negative) Urine RBC 6-10 H (0-2) /HPF Urine WBC >50 H (0-5) /HPF Ur Squamous Epith Cells 0-2 (0-2) /HPF Urine Bacteria 4+ (None Seen) Hyaline Casts 3-5 (0-2) /LPF Discharge Plan Discharge Clinical Impression: Pyelonephritis of left kidney, Hypokalemia Patient Disposition: Admitted As Inpatient
--- NOTE | 2025-02-14 17:45 | ECG_ITS ---
Test Reason : ABD PN Blood Pressure : */* mmHG Vent. Rate : 75 BPM Atrial Rate : 75 BPM P-R Int : 154 ms QRS Dur : 94 ms QT Int : 386 ms P-R-T Axes : 36 33 15 degrees QTcB Int : 431 ms Poor data quality, interpretation may be adversely affected Normal sinus rhythm Nonspecific ST and T wave abnormality Abnormal ECG When compared with ECG of 12-Dec-2024 14:36, No significant change was found Referred By: Lul Cooper Electronically Signed By: Poncho Nieto
[2025-02-14 17:51] LABS: Hematocrit 30.7 % (37.0-47.0); Hemoglobin 10.2 g/dl (12.0-16.0); Imm Gran Abs Auto 0.16 X10*3/uL (0.00-0.03); Imm Gran Pct Auto 0.8 % (0.0-0.4); Lymphocytes Absolute Auto 1.3 X10*3/uL (1.2-4.9); MANUAL DIFF FLAG SCAN; Mean Corpuscular HGB Conc 33.2 g/dl (31.0-35.0); Mean Corpuscular Hemoglobin 28.3 pg (27.0-33.0); Mean Corpuscular Volume 85.0 fL (80.0-98.0); NRBC Abs Auto 0.000 X10*3/uL (0.0-0.012); NRBC Pct Auto 0.0 /100WBC (0.0-0.2); Platelet Count 178 X10*3/uL (160-400); Red Blood Count 3.61 X10*6/uL (4.20-5.50); SCAN SMEAR FLAG 1; White Blood Count 20.0 X10*3/uL (4.8-10.8)
[2025-02-14 17:52] VITALS: BP 142/69; PULSE 77; RESP 15; TEMP 37.9; O2SAT 93
[2025-02-14 18:09] LABS: Chloride 108 mmol/L (96-108); Creatinine Clr Calc Pharmacy 48.5; Estimated Glomerular Filt Rate 53
[2025-02-14 18:10] LABS: Alanine Aminotransferase 10 U/L (0-31); Albumin Level 3.4 g/dL (3.5-5.0); Alkaline Phosphatase 69 U/L (39-117); Anion Gap 9 (12-20); Aspartate Amino Transferase 17 U/L (5-31); Blood Urea Nitrogen 19 mg/dL (9-16); Calcium 8.8 mg/dL (8.4-10.2); Carbon Dioxide 27 mmol/L (22-29); Potassium 2.7 mmol/L (3.3-5.1); Sodium 141 mmol/L (135-145); Total Protein 7.1 g/dL (6.5-8.0)
[2025-02-14 18:58] LABS: Venous Blood Gas Refer to POC result
[2025-02-14 19:00] LABS: VBG HCO3 26 mmol/L (22-26); VBG O2 % Saturation 83.0 %
[2025-02-14 19:02] LABS: Appearance Urine Cloudy; Glucose Urine UA Negative (Negative); PH 6.5 (5.0-9.0); Specific Gravity - Urine 1.015 (1.005-1.025); UMIC TRIGGER UACC YES
[2025-02-14] MEDS: Potassium Chloride/H20 10 MEQ/100 ML PIGGYBACK 100 MEQ IV ×4 (19:04→23:27)
[2025-02-14 19:05] LABS: UACC Culture Trigger YES
[2025-02-14 19:16] VITALS: BP 164/72; PULSE 80; RESP 18; TEMP 36.8; O2SAT 96
--- OUTSIDE RECORDS SUMMARY | 2025-02-14 19:34 | XMS_ITS | Clinical Summary ---
Author Organization [facility] Address [address] [facility] [address] [place] [phone] Phone Care Team Providers Care Jewelry Racker Name Role Phone Unknown, Unknown Primary Care [...] topic Medical Devices Not on file [place] [address] [address] TOTAL ONE CARE MEDICARE PART A & B [facility] ONE CARE MEDICARE REPLACEMENT [place] TOTAL ONE CARE MEDICARE PART A & B [facility] ONE CARE MEDICARE REPLACEMENT [place] TOTAL ONE CARE MEDICARE PART A & B ONE CARE MEDICARE [place]PLAC[place] [address] [place] [address] ONE CARE MEDICARE PART A & B [facility] CARE MEDICARE REPLACEMENT [facility] CARE MEDICARE PART A & B [facility] CARE MEDICARE REPLACEMENT [place] ONE CARE MEDICARE PART A & B [facility] ONE CARE MEDICARE REPLACEMENT [place] TOTAL ONE CARE MEDICARE PART A & B [facility] ONE CARE MEDICARE REPLACEMENT [facility] ONE CARE MEDICARE PART A & B [facility] CARE MEDICARE REPLACEMENT [place] TOTAL ONE CARE MEDICARE PART A & B [facility] ONE CARE MEDICARE REPLACEMENT Care Teams Jewelry Racker Relationship Specialty Start Date End Date Unknown, Unknown, PCP - General 01/01/15 Additional Source Comments The information contained in this document represents components of the legal health record. It is not the complete legal health record.[facility]
[2025-02-14] MEDS: iohexoL 350 MG/ML 100 ML INFUS..BTL IV (20:00)
--- NOTE | 2025-02-14 21:18 | P.HPHOSP_ITS ---
History of Present Illness Date of Service: 02/14/25 Attending physician on admission: Claudio Kidd Chief Complaint: Left flank pain Marisol Foss is a 59 years old woman with past medical history significant for UTIs and bacteremia due to Klebsiella pneumoniae, essential hypertension, CVAs with residual left hemiparesis and hyperlipidemia presents to the emergency department complaining of left flank pain associated with nausea, vomiting and increased urinary frequency over the last 3 days. She also has been experiencing fever and chills. She denied pain with urination or blood in urine, about noted that the urine is foul-smelling. She is complaining of generalized headache. She denied any acute cardiopulmonary or gastrointestinal symptoms. Denied tobacco smoking, alcohol abuse or illicit drug use. In the ED, she was found to have stable vital signs. Max temp is a 100.2 degrees. Blood workup showed leukocytosis of 20,000 without lactic acidosis, hemoglobin is 10.2 and platelets is 178. There is hypokalemia of 2.7 but no other electrolyte imbalances. LFTs are normal and albumin is 3.4. Urinalysis consistent with UTI and there is microscopic hematuria. Abdominal pelvis CT scan with IV contrast showed diminished left perinephric inflammatory changes with unchanged (chemo in-home pneumonias and has been compatible with pyelonephritis and/or focal bacterial nephritis, mild urinary bladder wall thickening suggesting cystitis. ECG showed normal sinus rhythm and nonspecific ST and T-wave changes. ED Tx: NS 1 L bolus, morphine 4 mg IV, Zofran 4 mg IV, ceftriaxone 2 g IV Review of Systems 2 Review of Systems: All 12 systems were reviewed and normal except as noted in HPI. FOR[facility]LY [facility], LATER [facility] Medical History History of adenomatous polyp of colon Iron deficiency anemia Hx of cancer of uterus Diabetes mellitus with retinopathy History of CVA with residual deficit Atherosclerotic cardiovascular disease Intracranial atherosclerosis Normocytic normochromic anemia Cancer History of degenerative joint disease GERD (gastroesophageal reflux disease) Sleep apnea Asthma Depression Vitamin D deficiency Essential hypertension Dyslipidemia Type 2 diabetes mellitus without complication, without long-term current use of insulin Family History Father Cancer Mother Cancer Myocardial infarction Family/Other Diabetes Surgical History Hx of hand surgery History of carpal tunnel release Hx of endoscopy Hx of colonoscopy Hx of cholecystectomy History of total abdominal hysterectomy Social History Household Members: None Housing: Apartment Do you presently have visiting nurse or other home services: Yes (supervisor counseling and guidance) Alcohol intake: never Patient Tobacco Use Status: Never used Tobacco Smoked in Last 30 Days: No e-Cigarette/Vaping Use: Never Used Second Hand Smoke Exposure: No Use of substances other than those prescribed or required for medical reasons: No Advance Directives: No Advance Directives Information Provided: No Advance Directives Date on File: 01/20/21 service: No Current occupational status: disabled Current occupation: rt handed Cognitive needs: No Hearing needs: No Vision needs: No Meds Allergies Allergy/AdvReac Type Severity Reaction Status Date / Time No Known Allergies (No Known Allergy Verified 02/14/25 17:03 Allergies*) Active Medications: Current Medications Potassium Chloride (Potassium Chloride/H20) 10 meq in 100 mls @ 100 mls/hr IV Q1H BUSTER Stop: 02/14/25 22:29 Last Admin: 02/14/25 20:53 Dose: 100 mls/hr Home Medications ?Medication ?Instructions ?Recorded ?Confirmed ?Last Taken ?Type dulaglutide 1.5 mg/0.5 mL 1.5 mg subcut TH 12/12/2412/07/24 History subcutaneous pen injector amlodipine 2.5 mg tablet 2.5 mg PO DAILY 12/26/2402/24 Unknown History Physical Exam 2 Vital Signs and Narrative: Vital Signs: Last Vital Signs Temp 98.3 F 02/14/25 19:16 Pulse 80 02/14/25 19:16 Resp 18 02/14/25 19:16 BP 164/72 H 02/14/25 19:16 Pulse Ox 96 02/14/25 19:16 O2 Del Method Room Air 02/14/25 19:16 BMI result Body Mass Index 32.6 General: Alert, oriented, in no acute distress. Looks acutely ill. Well nourished and cooperative. Afebrile. HEENT: Head normocephalic, atraumatic. PER, EOMI. Sclerae anicteric, conjunctiva clear. Oropharynx without erythema or exudate. Mucous membranes moist. Neck: Supple, no lymphadenopathy, or JVD. Heart: RRR, no murmurs, rubs or gallops. Lungs: Clear to auscultation bilaterally. No wheezes, rales, or rhonchi. Normal respiratory effort. Abdomen: Soft, nondistended, left flank with positive CVA tenderness, normoactive bowel sounds. No hepatosplenomegaly, masses Extremities: No calf tenderness bilaterally, no swelling Musculoskeletal: Full range of motion. No joint swelling, deformity, or tenderness. Normal muscle tone and strength. Skin: Warm/Dry. No pallor. No jaundice. Neurologic: Alert & oriented x4. Moving all extremities spontaneously. Normal speech. Psychological: Normal mood and affect. Thought process coherent. Results Labs 02/14/25 17:46 02/14/25 17:46 Labs: Laboratory Results - last 24 hr 02/14/25 02/14/25 02/14/25 17:46 18:46 18:56 MCV 85.0 MCH 28.3 MCHC 33.2 RDW 14.4 Plt Count 178 D MPV 10.3 Immature Gran % (Auto) 0.8 H Neut % (Auto) 83.1 H Lymph % (Auto) 6.4 L [place] % (Auto) 9.2 Eos % (Auto) 0.2 Baso % (Auto) 0.3 Lymph # (Auto) 1.3 [place] # (Auto) 1.8 H Eos # (Auto) 0.1 Baso # (Auto) 0.1 Abs Immat Gran (auto) 0.16 H Absolute Neuts (auto) 16.6 H Absolute Nucleated RBC 0.000 Nucleated RBC % (auto) 0.0 Smear Tech's Comments VERIFIED VBG pH 7.44 H VBG pCO2 38 VBG pO2 54 VBG HCO3 26 VBG O2 Saturation 83.0 VBG Base Excess 2.3 Anion Gap 9 L Estim Creat Clear Calc 48.5 Estimated GFR 53 Random Glucose 122 H Lactic Acid 1.0 Calcium 8.8 D Total Bilirubin 0.4 AST 17 ALT 10 Alkaline Phosphatase 69 Total Protein 7.1 Albumin 3.4 L Urine Color Yellow Urine Appearance Cloudy Urine pH 6.5 Ur Specific [place] 1.015 Urine Protein 100 (2+) H Urine Glucose (UA) Negative Urine Ketones Negative Urine Blood Small (1+) H Urine Nitrite Positive H Ur Leukocyte Esterase Moderate (2+) H Urine RBC 6-10 H Urine WBC >50 H Ur Squamous Epith Cells 0-2 Urine Bacteria 4+ Hyaline Casts 3-5 Assessment and Plan (1) UTI (urinary tract infection): Qualifiers: Hematuria presence: without hematuria Urinary tract infection type: a cute cystitis Qualified Code(s): N30.00 - Acute cystitis without hematuria Status: Acute (2) Hypokalemia: Status: Acute Plan Marisol Scott Foss is a 59 y/o woman with a PMHx significant for bacteremia and UTI by Klebsiella pneumoniae who presents with: Acute pyelonephritis. Continue empiric IV antibiotic therapy with ceftriaxone and IV fluids. Blood and urine cultures obtained -will follow results. Hypokalemia secondary to vomiting. Replete as needed. Continue to monitor K level. Type 2 diabetes mellitus. Hold metformin. On Trilucity but NF. BG checks before meals at bedtime. Insulin sliding scale. Diabetic diet. Essential hypertension. Continue amlodipine. Hyperlipidemia. Continue atorvastatin and ezetimibe. Hx of CVAs; residual left hemiparesis. Continue aspirin and statin. Code status: Full DVT prophylaxis: Lovenox Patient will need hospitalization for at least 2 midnights for acute pyelonephritis treatment with IV antibiotics and fluids in the setting of prior history of bacteremia by Klebsiella due to UTI. This documentation was generated using dictation software; minor spreading or visual communications instructor errors may be present. Quality Stroke Does the patient have a stroke diagnosis?: No VTE Prior VTE?: No VTE Risk Level:: Medical - moderate - high VTE Device Contraindication: Treatment Not Indicated VTE Drug Contraindication: N/A - Med Ordered
[2025-02-14 21:41] VITALS: BP 151/59; PULSE 82; RESP 16; TEMP 36.8; O2SAT 96
[2025-02-14 21:53] LABS: Magnesium 1.9 mg/dL (1.6-2.6)
--- NOTE | 2025-02-14 22:09 | PHA.MEDREC ---
Pharmacy Consult ? Medication Reconciliation Pharmacy has completed the medication reconciliation. Spoke to patient to confirm medication list. Patient verified that she is now taking amlodipine 5 mg daily, trulicity 1.5 mg once a week on . Last dose of medications was yesterday 02/13/25.
[2025-02-15] VITALS (7 sets, daily range): BP systolic 114–140; BP diastolic 53–80; PULSE 67–76; RESP 15–18; TEMP 36.3–36.8; O2SAT 92–98; BMI 27.8
[2025-02-15] MEDS: Lactated Ringers 1,000 ML 100 ML IVCONT (00:31)
--- NOTE | 2025-02-15 04:12 | HO.NURTONUR ---
Pt from home with complaint of LLQ pain and left flank pain with associated nausea, increased urination, chills and headache for 3 days. Pt denies cp, sob, or any other concerning symptoms. Pt has left sided deficits due to previous stroke. Pt is caox4, able to make her needs known and uses bedside commode. Pt being admitted for further evaluation, uti, and hypokalemia. Pt has 20G IV in RFA and has been medicated per jul. Pt currently has LR IVF running at 100 ml/hr. Per pt tylenol was effective for headache and morphine for abdominal pain. Work up in the ED showed: EKG: NSR Labs: WBC- 20.0 potassium- 2.7 Anion gap- 9 BUN- 19 Urine- positive for UTI CT abdomen/pelvis: IMPRESSION: 1. Diminished left perinephric inflammatory changes with unchanged left renal parenchymal inhomogeneous enhancement compatible with pyelonephritis and/or focal bacterial nephritis. 2. Mild urinary bladder wall thickening suggests cystitis. Findings are unchanged.
[2025-02-15 04:33] LABS: MANUAL DIFF FLAG NO
[2025-02-15 04:35] LABS: Hematocrit 27.1 % (37.0-47.0); Hemoglobin 8.9 g/dl (12.0-16.0); Imm Gran Abs Auto 0.07 X10*3/uL (0.00-0.03); Imm Gran Pct Auto 0.5 % (0.0-0.4); Lymphocytes Absolute Auto 1.4 X10*3/uL (1.2-4.9); Mean Corpuscular HGB Conc 32.8 g/dl (31.0-35.0); Mean Corpuscular Hemoglobin 28.4 pg (27.0-33.0); Mean Corpuscular Volume 86.6 fL (80.0-98.0); NRBC Abs Auto 0.000 X10*3/uL (0.0-0.012); NRBC Pct Auto 0.0 /100WBC (0.0-0.2); Platelet Count 154 X10*3/uL (160-400); Red Blood Count 3.13 X10*6/uL (4.20-5.50); White Blood Count 14.2 X10*3/uL (4.8-10.8)
[2025-02-15 04:53] LABS: Anion Gap 10 (12-20); Blood Urea Nitrogen 17 mg/dL (9-16); Calcium 8.2 mg/dL (8.4-10.2); Carbon Dioxide 22 mmol/L (22-29); Chloride 113 mmol/L (96-108); Creatinine Clr Calc Pharmacy 65.2; Estimated Glomerular Filt Rate > 60; Magnesium 1.9 mg/dL (1.6-2.6); Potassium 3.1 mmol/L (3.3-5.1); Sodium 142 mmol/L (135-145)
[2025-02-15] MEDS: Potassium Chloride ER 20 MEQ TAB.ER.PRT 40 MEQ PO (08:45)
[2025-02-15] MEDS: Ferrous Sulfate 324 MG TABLET.DR PO (08:45)
--- NOTE | 2025-02-15 09:23 | PC.NURSE ---
assumed care of pt at 0645. a&ox4. vss and up to date. nsr on the potline monitor. ambulatory w/ walker or cane baseline. 1:1 assist OOB and to the commode. diabetic diet - swallows pills whole w/ water. no difficulties in swallowing noted. 20gIV in the right forearm - LR @ 100mls/hr. hx previous stroke (x4 - not anticoagulated). +chronic left sided facial droop and left sided upper and lower extremity weakness baseline. pt presents to the ED c/o LUQ pain radiating left flank w/ associated n/v/d/decreased PO intake/urinary retention x 3 days. denies hx of kidney stones. abd/pelvis completed in the ED. UA obtained w/ +UTI. pt has been receiving IV abx. hypokalemic at 2.7 upon ED arrival - pt received 4 bags of K+. repeat labs display 3.1 - pt then consumed 40meq of potassium - pending repeat lab work/effectiveness. pt otherwise on RA w/o difficulty - no sob/wob noted. respirations even/unlabored. plan of care ongoing. call inman placed within reach.
--- NOTE | 2025-02-15 11:39 | MHC.CM.PN ---
IMM 02/15/25, Pt. is Yakut speaking, speaks some Khmer. 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 For DME, she uses a walker, cane, shower chair, grab bars. PCP is Kathy Cooper MD. HCP on file and confirmed: Ritika. Pt. can arrange transport home at [place]. DCP: home with services. CM to follow for DC needs.
--- NOTE | 2025-02-15 13:48 | MHC.EDTECH ---
Patient was cleaned up and resting comfortably in her bed now.
--- NOTE | 2025-02-15 16:02 | PC.NURSE ---
pt reporting increase in diffuse abd pain - prn medication utilized. effectiveness pending.
--- NOTE | 2025-02-15 16:12 | P.PNIM_ITS ---
Subjective Subjective Date of Service: 02/15/25 Interval History: UTI/pyelo Review of Systems has significant pain no fever or chills Review of Systems: Yes all other systems are reviewed and are negative Physical Exam 2 Exam: Exam: Appearance: Alert.? Oriented X3.? cvs: rrr, [id number]. res: clear to auscultation ,no rhonchii or wheezing abd: no rebound or guarding ,nt, bs present. ext pulses present , no cyanosis Gu-left cva tenderness. neuro: axo3 , nonfocal. Vital Signs: Vital Signs: Last Vital Signs Temp 98.1 F 02/15/25 15:38 Pulse 76 02/15/25 15:38 Resp 16 02/15/25 15:38 BP 136/67 02/15/25 15:38 Pulse Ox 98 02/15/25 15:38 O2 Del Method Room Air 02/15/25 15:38 BMI result Body Mass Index 32.6 Objective Data Active Medications Acetaminophen (Acetaminophen 325 Mg Tablet) 975 mg PO Q6H PRN PRN Reason: Pain, Mild 1-3,fever,headache Last Admin: 02/14/25 21:38 Dose: 975 mg Documented By: TERE Amlodipine Besylate (Amlodipine Besylate 5 Mg Tablet) 5 mg PO DAILY [facility]; Protocol Last Admin: 02/15/25 08:46 Dose: 5 mg Documented By: LOTUS Atorvastatin Calcium (Atorvastatin Calcium 80 Mg Tablet) 80 mg PO BEDTIME [facility] Calcium Carbonate (Calcium Carbonate 750 Mg Tab.Chew) 750 mg PO Q4H PRN PRN Reason: Heartburn Ceftriaxone Sodium (Ceftriaxone Sodium 1 Gm Vial) 1 gm IVPUSH Q24H [facility] Ezetimibe (Ezetimibe 10 Mg Tablet) 10 mg PO DAILY [facility] Last Admin: 02/15/25 08:45 Dose: 10 mg Documented By: LOTUS Enoxaparin Sodium (Enoxaparin Sodium 40 Mg/0.4 Ml Syringe) 40 mg SUBCUT Q24H [facility] Last Admin: 02/15/25 08:46 Dose: 40 mg Documented By: LOTUS Ferrous Sulfate (Ferrous Sulfate 324 Mg Tablet.) 324 mg PO DAILY [facility] Last Admin: 02/15/25 08:45 Dose: 324 mg Documented By: LOTUS Hydrochlorothiazide (Hydrochlorothiazide 12.5 Mg Tablet) 12.5 mg PO DAILY [facility] Last Admin: 02/15/25 08:45 Dose: 12.5 mg Documented By: LOTUS Lisinopril (Lisinopril 10 Mg Tablet) 10 mg PO DAILY [facility] Last Admin: 02/15/25 08:46 Dose: 10 mg Documented By: LOTUS Magnesium Hydroxide (Milk Of Magnesia 30 Ml Oral.Susp) 30 ml PO DAILY PRN PRN Reason: Constipation Meclizine HCl (Meclizine Hcl 12.5 Mg Tablet) 12.5 mg PO TID PRN PRN Reason: Vertigo Melatonin (Melatonin 3 Mg Tablet) 6 mg PO BEDTIME PRN PRN Reason: Insomnia Morphine Sulfate (Morphine Sulfate 4 Mg/Ml Cartridge) 4 mg IVPUSH Q4H PRN; Protocol PRN Reason: abdominal pain Last Admin: 02/15/25 16:01 Dose: 4 mg Documented By: LOTUS Non-Formulary Medication (Dulaglutide) 1.5 mg SUBCUT [facility] Ondansetron HCl (Ondansetron Hcl 4 Mg/2 Ml Vial) 4 mg IVPUSH Q6H PRN PRN Reason: Nausea and Vomiting Sodium Chloride (0.9 % Sodium Chloride Flush 3 Ml Syringe) 3 ml IVFLUSH QSHIFT [facility] Last Admin: 02/15/25 15:42 Dose: Not Given Documented By: LOTUS Non-Admin Reason: Patient Asleep Labs 02/15/25 04:23 02/15/25 04:23 Labs: Laboratory Results - last 24 hr 02/14/25 02/14/25 02/14/25 17:46 18:46 18:56 MCV 85.0 MCH 28.3 MCHC 33.2 RDW 14.4 Plt Count 178 D MPV 10.3 Immature Gran % (Auto) 0.8 H Neut % (Auto) 83.1 H Lymph % (Auto) 6.4 L [place] % (Auto) 9.2 Eos % (Auto) 0.2 Baso % (Auto) 0.3 Lymph # (Auto) 1.3 [place] # (Auto) 1.8 H Eos # (Auto) 0.1 Baso # (Auto) 0.1 Abs Immat Gran (auto) 0.16 H Absolute Neuts (auto) 16.6 H Absolute Nucleated RBC 0.000 Nucleated RBC % (auto) 0.0 Smear Tech's Comments VERIFIED VBG pH 7.44 H VBG pCO2 38 VBG pO2 54 VBG HCO3 26 VBG O2 Saturation 83.0 VBG Base Excess 2.3 Anion Gap 9 L Estim Creat Clear Calc 48.5 Estimated GFR 53 Random Glucose 122 H Lactic Acid 1.0 Calcium 8.8 D Magnesium 1.9 Total Bilirubin 0.4 AST 17 ALT 10 Alkaline Phosphatase 69 Total Protein 7.1 Albumin 3.4 L Urine Color Yellow Urine Appearance Cloudy Urine pH 6.5 Ur Specific [place] 1.015 Urine Protein 100 (2+) H Urine Glucose (UA) Negative Urine Ketones Negative Urine Blood Small (1+) H Urine Nitrite Positive H Ur Leukocyte Esterase Moderate (2+) H Urine RBC 6-10 H Urine WBC >50 H Ur Squamous Epith Cells 0-2 Urine Bacteria 4+ Hyaline Casts 3-5 02/15/25 04:23 MCV 86.6 MCH 28.4 MCHC 32.8 RDW 14.6 Plt Count 154 L MPV 11.2 Immature Gran % (Auto) 0.5 H Neut % (Auto) 82.2 H Lymph % (Auto) 9.8 L [place] % (Auto) 7.2 Eos % (Auto) 0.1 Baso % (Auto) 0.2 Lymph # (Auto) 1.4 [place] # (Auto) 1.0 Eos # (Auto) 0.0 Baso # (Auto) 0.0 Abs Immat Gran (auto) 0.07 H Absolute Neuts (auto) 11.7 H Absolute Nucleated RBC 0.000 Nucleated RBC % (auto) 0.0 Smear Tech's Comments VBG pH VBG pCO2 VBG pO2 VBG HCO3 VBG O2 Saturation VBG Base Excess Anion Gap 10 L Estim Creat Clear Calc 65.2 Estimated GFR > 60 Random Glucose 130 H Lactic Acid Calcium 8.2 L D Magnesium 1.9 Total Bilirubin AST ALT Alkaline Phosphatase Total Protein Albumin Urine Color Urine Appearance Urine pH Ur Specific [place] Urine Protein Urine Glucose (UA) Urine Ketones Urine Blood Urine Nitrite Ur Leukocyte Esterase Urine RBC Urine WBC Ur Squamous Epith Cells Urine Bacteria Hyaline Casts Microbiology Microbiology Results: Microbiology 02/14/25 19:58 Urine Culture - Preliminary Urine clean catch - Clean Catch Midstream Culture too young to evaluate. Assessment and Plan (1) UTI (urinary tract infection): Status: Acute (2) Hypokalemia: Status: Acute Plan 59 y/o woman with a PMHx significant for bacteremia and UTI by Klebsiella pneumoniae who presents with: Acute pyelonephritis. Continue empiric IV antibiotic therapy with ceftriaxone and IV fluids. Blood and urine cultures obtained -will follow results. Hypokalemia secondary to vomiting. Replete as needed. Continue to monitor K level. Type 2 diabetes mellitus. Hold metformin. On Trilucity but NF. BG checks before meals at bedtime. Insulin sliding scale. Diabetic diet. Essential hypertension. Continue amlodipine. Hyperlipidemia. Continue atorvastatin and ezetimibe. Hx of CVAs; residual left hemiparesis. Continue aspirin and statin. Code status: Full DVT prophylaxis: Lovenox ongoing need hospitalization : acute pyelonephritis treatment with IV antibiotics and fluids in the setting of prior history of bacteremia by Klebsiella due to UTI. Quality Stroke Does the patient have a stroke diagnosis?: No VTE Prior VTE?: No VTE Risk Level:: Medical - moderate - high VTE Device Contraindication: Treatment Not Indicated VTE Drug Contraindication: N/A - Med Ordered
[2025-02-15 17:13] LABS: Glucose, Whole Blood 111 mg/dL (60-115)
[2025-02-15] MEDS: 0.9 % Sodium Chloride Flush 3 ML SYRINGE IVFLUSH (19:35)
[2025-02-15 21:47] LABS: Glucose, Whole Blood 115 mg/dL (60-115)
[2025-02-16 03:19] VITALS: BP 141/60; PULSE 67; RESP 14; TEMP 36.3; O2SAT 95
[2025-02-16 06:47] LABS: Anion Gap 11 (12-20); Blood Urea Nitrogen 12 mg/dL (9-16); Calcium 8.7 mg/dL (8.4-10.2); Carbon Dioxide 25 mmol/L (22-29); Chloride 109 mmol/L (96-108); Creatinine Clr Calc Pharmacy 64.2; Estimated Glomerular Filt Rate > 60; Potassium 3.1 mmol/L (3.3-5.1); Sodium 142 mmol/L (135-145)
[2025-02-16 07:30] VITALS: BP 130/58; PULSE 66; RESP 16; TEMP 36.1; O2SAT 95
[2025-02-16 08:09] LABS: Glucose, Whole Blood 115 mg/dL (60-115)
[2025-02-16] MEDS: Ferrous Sulfate 324 MG TABLET.DR PO (08:18)
[2025-02-16] MEDS: 0.9 % Sodium Chloride Flush 3 ML SYRINGE IVFLUSH ×3 (08:19→19:49)
--- NOTE | 2025-02-16 08:21 | P.PNIM_ITS ---
Subjective Subjective Date of Service: 02/16/25 Interval History: uti/pyelonephritis Review of Systems has still significant pain , left cva tenderness Review of Systems: Yes all other systems are reviewed and are negative Physical Exam 2 Vital Signs: Vital Signs: Last Vital Signs Temp 97.0 F 02/16/25 07:30 Pulse 66 02/16/25 07:30 Resp 16 02/16/25 07:30 BP 130/58 L 02/16/25 07:30 Pulse Ox 95 02/16/25 07:30 O2 Del Method Room Air 02/16/25 07:30 BMI result Body Mass Index 27.8 Appearance: Alert.? Oriented X3.? cvs: [id number], [id number] . res: clear to auscultation ,no rhonchii or wheezing abd: no rebound or guarding ,nt, bs present. Gu -left cva tenderness ext pulses present , no cyanosis . neuro: axo3 , nonfocal. Objective Data Active Medications Acetaminophen (Acetaminophen 325 Mg Tablet) 975 mg PO Q6H PRN PRN Reason: Pain, Mild 1-3,fever,headache Last Admin: 02/14/25 21:38 Dose: 975 mg Documented By: TERE Amlodipine Besylate (Amlodipine Besylate 5 Mg Tablet) 5 mg PO DAILY [facility]; Protocol Last Admin: 02/15/25 08:46 Dose: 5 mg Documented By: LOTUS Atorvastatin Calcium (Atorvastatin Calcium 80 Mg Tablet) 80 mg PO BEDTIME [facility] Last Admin: 02/15/25 19:32 Dose: 80 mg Documented By: LUI Calcium Carbonate (Calcium Carbonate 750 Mg Tab.Chew) 750 mg PO Q4H PRN PRN Reason: Heartburn Ceftriaxone Sodium (Ceftriaxone Sodium 1 Gm Vial) 1 gm IVPUSH Q24H [facility] Last Admin: 02/15/25 19:36 Dose: 1 gm Documented By: LUI Ezetimibe (Ezetimibe 10 Mg Tablet) 10 mg PO DAILY [facility] Last Admin: 02/15/25 08:45 Dose: 10 mg Documented By: LOTUS Enoxaparin Sodium (Enoxaparin Sodium 40 Mg/0.4 Ml Syringe) 40 mg SUBCUT Q24H [facility] Last Admin: 02/15/25 08:46 Dose: 40 mg Documented By: LOTUS Ferrous Sulfate (Ferrous Sulfate 324 Mg Tablet.Dr) 324 mg PO DAILY [facility] Last Admin: 02/15/25 08:45 Dose: 324 mg Documented By: LOTUS Hydrochlorothiazide (Hydrochlorothiazide 12.5 Mg Tablet) 12.5 mg PO DAILY [facility] Last Admin: 02/15/25 08:45 Dose: 12.5 mg Documented By: LOTUS Lisinopril (Lisinopril 10 Mg Tablet) 10 mg PO DAILY [facility] Last Admin: 02/15/25 08:46 Dose: 10 mg Documented By: LOTUS Magnesium Hydroxide (Milk Of Magnesia 30 Ml Oral.Susp) 30 ml PO DAILY PRN PRN Reason: Constipation Meclizine HCl (Meclizine Hcl 12.5 Mg Tablet) 12.5 mg PO TID PRN PRN Reason: Vertigo Melatonin (Melatonin 3 Mg Tablet) 6 mg PO BEDTIME PRN PRN Reason: Insomnia Morphine Sulfate (Morphine Sulfate 4 Mg/Ml Cartridge) 4 mg IVPUSH Q4H PRN; Protocol PRN Reason: abdominal pain Last Admin: 02/15/25 22:27 Dose: 4 mg Documented By: LUI Non-Formulary Medication (Dulaglutide) 1.5 mg SUBCUT TH [facility] Ondansetron HCl (Ondansetron Hcl 4 Mg/2 Ml Vial) 4 mg IVPUSH Q6H PRN PRN Reason: Nausea and Vomiting Sodium Chloride (0.9 % Sodium Chloride Flush 3 Ml Syringe) 3 ml IVFLUSH QSHIFT [facility] Last Admin: 02/15/25 19:35 Dose: 3 ml Documented By: LUI Labs 02/15/25 04:23 02/16/25 05:59 Labs: Laboratory Results - last 24 hr 02/15/25 02/15/25 02/16/25 16:44 21:41 05:59 Anion Gap 11 L Estim Creat Clear Calc 64.2 Estimated GFR > 60 POC Glucose 111 115 Random Glucose 127 H Calcium 8.7 D 02/16/25 08:05 Anion Gap Estim Creat Clear Calc Estimated GFR POC Glucose 115 Random Glucose Calcium Microbiology Microbiology Results: Microbiology 02/14/25 18:46 Blood Culture - Preliminary Blood - Venous No growth after 24 hours. 02/14/25 18:46 Blood Culture - Preliminary Blood - Venous No growth after 24 hours. 02/14/25 19:58 Urine Culture - Preliminary Urine clean catch - Clean Catch Midstream Culture too young to evaluate. Assessment and Plan (1) UTI (urinary tract infection): Status: Acute Plan Ajay Foss is a 59 y/o woman with a PMHx significant for bacteremia and UTI by Klebsiella pneumoniae who presents with: Acute pyelonephritis. Continue empiric IV antibiotic therapy with ceftriaxone and IV fluids. Blood neg@24hrs and urine cultures pending -will follow results. Hypokalemia secondary to vomiting. Replete as needed. Continue to monitor K level. Type 2 diabetes mellitus. Hold metformin. On Trilucity but NF. BG checks before meals at bedtime. Insulin sliding scale. Diabetic diet. Essential hypertension. Continue amlodipine. Hyperlipidemia. Continue atorvastatin and ezetimibe. Hx of CVAs; residual left hemiparesis. Continue aspirin and statin. Code status: Full DVT prophylaxis: Lovenox ongoing need for stay:acute pyelonephritis treatment with IV antibiotics and fluids in the setting of prior history of bacteremia by Klebsiella due to UTI. Quality Stroke Does the patient have a stroke diagnosis?: No VTE Prior VTE?: No VTE Risk Level:: Medical - moderate - high VTE Device Contraindication: Treatment Not Indicated VTE Drug Contraindication: N/A - Med Ordered
[2025-02-16 11:09] VITALS: BMI 32.7
--- NOTE | 2025-02-16 11:12 | MHC.CLN ---
NUTRITION WEIGHT ESSENTIALLY STABLE X 3 YEARS. WEIGHT OBTAINED TODAY WITH BEDSCALE. NO ADDITIONAL NUTRITION INTERVENTIONS AT THIS TIME.
[2025-02-16 11:29] LABS: Glucose, Whole Blood 141 mg/dL (60-115)
[2025-02-16 12:00] VITALS: BP 159/64; PULSE 70; RESP 16; TEMP 36.2; O2SAT 96
[2025-02-16 12:06] VITALS: RESP 18
--- NOTE | 2025-02-16 14:44 | MHC.CM.PN ---
Patient is not medically cleared to discharge. DP home resumption of [facility] services. Patients sister will provide transportation home.
[2025-02-16 15:28] VITALS: BP 134/61; PULSE 65; RESP 16; TEMP 36.3; O2SAT 97
[2025-02-16 15:40] LABS: Glucose, Whole Blood 118 mg/dL (60-115)
--- NOTE | 2025-02-16 16:36 | W.PM.IDCN ---
History of Present Illness Data of Consult Service Date: 02/16/25 Requesting physician: Oksana Shepherd Primary Care Provider: Unknown Physician HPI Reason for consult: pyelonephritis left flank pain She has pain left flank,5/10 with some frequent urination and hematuria for a day. No one else is ill She has negative blood cultures and gram negative rods in urine. Review of Systems Review of Systems: Yes all other systems are reviewed and are negative PMFSH Past Medical History Medical History History of adenomatous polyp of colon Iron deficiency anemia Hx of cancer of uterus Diabetes mellitus with retinopathy History of CVA with residual deficit Atherosclerotic cardiovascular disease Intracranial atherosclerosis Normocytic normochromic anemia Cancer History of degenerative joint disease GERD (gastroesophageal reflux disease) Sleep apnea Asthma Depression Vitamin D deficiency Essential hypertension Dyslipidemia Type 2 diabetes mellitus without complication, without long-term current use of insulin Family History Family History Father Cancer Mother Cancer Myocardial infarction Family/Other Diabetes Family history: reviewed and not pertinent Surgical History Surgical History Hx of hand surgery History of carpal tunnel release Hx of endoscopy Hx of colonoscopy Hx of cholecystectomy History of total abdominal hysterectomy Social History Social History Household Members: None Housing: Apartment Do you presently have visiting nurse or other home services: Yes Alcohol intake: never Patient Tobacco Use Status: Never used Tobacco e-Cigarette/Vaping Use: Never Used Second Hand Smoke Exposure: No Advance Directives Date on File: 01/20/21 service: No Current occupational status: disabled Current occupation: rt handed Cognitive needs: No Hearing needs: No Vision needs: No Meds Allergies Allergy/AdvReac Type Severity Reaction Status Date / Time No Known Allergies (No Known Allergy Verified 02/14/25 17:03 Allergies*) Active Medications: Current Medications Acetaminophen (Acetaminophen 325 Mg Tablet) 975 mg PO Q6H PRN PRN Reason: Pain, Mild 1-3,fever,headache Last Admin: 02/14/25 21:38 Dose: 975 mg Amlodipine Besylate (Amlodipine Besylate 5 Mg Tablet) 5 mg PO DAILY BUSTER; Protocol Last Admin: 02/16/25 08:18 Dose: 5 mg Atorvastatin Calcium (Atorvastatin Calcium 80 Mg Tablet) 80 mg PO BEDTIME [facility] Last Admin: 02/15/25 19:32 Dose: 80 mg Calcium Carbonate (Calcium Carbonate 750 Mg Tab.Chew) 750 mg PO Q4H PRN PRN Reason: Heartburn Ceftriaxone Sodium (Ceftriaxone Sodium 1 Gm Vial) 1 gm IVPUSH Q24H [facility] Last Admin: 02/15/25 19:36 Dose: 1 gm Ezetimibe (Ezetimibe 10 Mg Tablet) 10 mg PO DAILY [facility] Last Admin: 02/16/25 08:18 Dose: 10 mg Enoxaparin Sodium (Enoxaparin Sodium 40 Mg/0.4 Ml Syringe) 40 mg SUBCUT Q24H [facility] Last Admin: 02/16/25 08:21 Dose: 40 mg Ferrous Sulfate (Ferrous Sulfate 324 Mg Tablet.Dr) 324 mg PO DAILY [facility] Last Admin: 02/16/25 08:18 Dose: 324 mg Hydrochlorothiazide (Hydrochlorothiazide 12.5 Mg Tablet) 12.5 mg PO DAILY [facility] Last Admin: 02/16/25 08:18 Dose: 12.5 mg Lisinopril (Lisinopril 10 Mg Tablet) 10 mg PO DAILY [facility] Last Admin: 02/16/25 08:18 Dose: 10 mg Magnesium Hydroxide (Milk Of Magnesia 30 Ml Oral.Susp) 30 ml PO DAILY PRN PRN Reason: Constipation Meclizine HCl (Meclizine Hcl 12.5 Mg Tablet) 12.5 mg PO TID PRN PRN Reason: Vertigo Melatonin (Melatonin 3 Mg Tablet) 6 mg PO BEDTIME PRN PRN Reason: Insomnia Morphine Sulfate (Morphine Sulfate 4 Mg/Ml Cartridge) 4 mg IVPUSH Q4H PRN; Protocol PRN Reason: abdominal pain Last Admin: 02/16/25 12:06 Dose: 4 mg Non-Formulary Medication (Dulaglutide) 1.5 mg SUBCUT TH [facility] Ondansetron HCl (Ondansetron Hcl 4 Mg/2 Ml Vial) 4 mg IVPUSH Q6H PRN PRN Reason: Nausea and Vomiting Sodium Chloride (0.9 % Sodium Chloride Flush 3 Ml Syringe) 3 ml IVFLUSH QSHIFT [facility] Last Admin: 02/16/25 08:19 Dose: 3 ml Home Medications ?Medication ?Instructions ?Recorded ?Confirmed ?Last Taken ?Type dulaglutide 1.5 mg/0.5 mL 1.5 mg subcut TH 12/12/24 02/14/25 02/08/25 History subcutaneous pen injector amlodipine 2.5 mg tablet 5 mg PO DAILY 12/26/24 02/14/25 02/13/25 History metformin 500 mg tablet 500 mg PO DAILY 02/14/25 02/14/25 Unknown History Physical Exam Vital Signs: Vital Signs: Last Vital Signs Temp 97.3 F 02/16/25 15:28 Pulse 65 02/16/25 15:28 Resp 16 02/16/25 15:28 BP 134/61 02/16/25 15:28 Pulse Ox 97 02/16/25 15:28 O2 Del Method Room Air 02/16/25 15:28 BMI result Body Mass Index 32.7 Const: General: cooperative HEENT: Head: Yes normal to inspection Face and sinus: Yes normal facial exam Mouth: Normal oral and palatal mucosa present Teeth and gingiva: dentition normal Eyes: General: appearance normal, both eyes and all related structures Pupils: Equal, round and reactive pupils present Resp: Effort & Inspection: normal respiratory effort Cardio: Rate: regular rate Rhythm: regular rhythm GI: Palpation (GI): Soft to palpation and nontender : General: Yes CVA tenderness on the left Back/Spine/Pelvis: Back: CVA tenderness Skin: General skin exam: no rashes or lesions noted Neuro: General: moves all extremities Cranial nerves: Yes Equal, round and reactive pupils present Extrem: General: Yes normal to inspection Psych: Appearance: grossly normal Results Labs 02/15/25 04:23 02/16/25 05:59 Labs: BMP 02/16/25 05:59 Sodium 142 Potassium 3.1 L Chloride 109 H Carbon Dioxide 25 BUN 12 Creatinine 0.74 Calcium 8.7 D Microbiology Microbiology Results: Microbiology 02/14/25 19:58 Urine clean catch - Clean Catch Midstream Urine Culture - Preliminary Gram negative martinez 02/14/25 18:46 Blood - Venous Blood Culture - Preliminary No growth after 24 hours. 02/14/25 18:46 Blood - Venous Blood Culture - Preliminary No growth after 24 hours. Assessment and Plan (1) Pyelonephritis of left kidney: Status: Acute Plan Continue Ceftriaxone. May change to po cephalosporin for total 10-14 days cover pyelonephritis.
[2025-02-16] MEDS: Potassium Chloride/H20 10 MEQ/100 ML PIGGYBACK 100 MEQ IV ×4 (19:48→23:10)
[2025-02-16 20:00] VITALS: BP 149/65; PULSE 71; RESP 18; TEMP 36.3; O2SAT 98
[2025-02-16 21:52] LABS: Glucose, Whole Blood 141 mg/dL (60-115)
[2025-02-17] VITALS: BP 153/66; PULSE 67; RESP 18; TEMP 36.8; O2SAT 94
[2025-02-17 03:46] VITALS: BP 126/72; PULSE 66; RESP 18; TEMP 35.9; O2SAT 96
[2025-02-17 07:18] VITALS: BP 118/58; PULSE 62; RESP 16; TEMP 36.1; O2SAT 98
[2025-02-17 07:24] LABS: Glucose, Whole Blood 122 mg/dL (60-115)
--- NOTE | 2025-02-17 07:43 | PM.DS ---
DS: Providers Provider Date of Service: 02/17/25 Date of admission: 02/14/25 21:16 Date of discharge: 02/17/25 Primary care physician: Unknown Physician Consults: 02/16/25 08:19 Consult to Infectious Diseases Routine Consulting Provider: [facility] Reason for consultation: pyelonephritis Has provider been notified: No Attending physician on discharge: Oksana Shepherd Discharging clinician: Oksana Shepherd DS: Diagnosis Discharge Diagnosis (1) Pyelonephritis of left kidney: Status: Acute DS: Summary Hospital Course Hospital Course: HPI:59 years old woman with past medical history significant for UTIs and bacteremia due to Klebsiella pneumoniae, essential hypertension, CVAs with residual left hemiparesis and hyperlipidemia presents to the emergency department complaining of left flank pain associated with nausea, vomiting and increased urinary frequency over the last 3 days. She also has been experiencing fever and chills. She denied pain with urination or blood in urine, about noted that the urine is foul-smelling. She is complaining of generalized headache. She denied any acute cardiopulmonary or gastrointestinal symptoms. Denied tobacco smoking, alcohol abuse or illicit drug use. In the ED, she was found to have stable vital signs. Max temp is a 100.2 degrees. Blood workup showed leukocytosis of 20,000 without lactic acidosis, hemoglobin is 10.2 and platelets is 178. There is hypokalemia of 2.7 but no other electrolyte imbalances. LFTs are normal and albumin is 3.4. Urinalysis consistent with UTI and there is microscopic hematuria. Abdominal pelvis CT scan with IV contrast showed diminished left perinephric inflammatory changes with unchanged (chemo in-home pneumonias and has been compatible with pyelonephritis and/or focal bacterial nephritis, mild urinary bladder wall thickening suggesting cystitis. ECG showed normal sinus rhythm and nonspecific ST and T-wave changes. ED Tx: NS 1 L bolus, morphine 4 mg IV, Zofran 4 mg IV, ceftriaxone 2 g IV. Hospital course: 59 y/o woman with a PMHx significant for bacteremia and UTI by Klebsiella pneumoniae who presents with: Acute pyelonephritis. Continue empiric IV antibiotic therapy with ceftriaxone and IV fluids. Blood neg@24hrs and urine cultures pending -will follow results. Hypokalemia secondary to vomiting. Replete as needed. Continue to monitor K level. Type 2 diabetes mellitus. Hold metformin. On Trilucity but NF. BG checks before meals at bedtime. Insulin sliding scale. Diabetic diet. Essential hypertension. Continue amlodipine. Hyperlipidemia. Continue atorvastatin and ezetimibe. Hx of CVAs; residual left hemiparesis. Continue aspirin and statin. plan: ceftin 500 mg po bid for 10 days. Hypokalemia repleted and resolved. Limited potassium supply was given,please check bmp outpatient with pcp. Monitor BMP outpatient and follow up with PCp,consider outpatient urology eval if needed . Above management discussed with the patient in detail length she understand and in agreement with the above plan, assessment and plan coordination time spent 45min, all question answered. Time Attestation Total time managing care of this patient today: 45 mintues. Discharge Coordination Time (in mins): 45 min Quality: Safe Use of Opioids Does Pt have an Active Cancer Diagnosis on the Problem List?: No Quality: Stroke Does the patient have a stroke diagnosis?: No Physical Exam Exam: Exam: Appearance: Alert.? Oriented X3.? cvs: rrr, [id number] . res: clear to auscultation ,no rhonchii or wheezing abd: no rebound or guarding ,nt, bs present. Gu -left cva tenderness ext pulses present , no cyanosis . neuro: axo3 , nonfocal. Vital Signs: Vital Signs: Last Vital Signs Temp 97.0 F 02/17/25 07:18 Pulse 62 02/17/25 07:18 Resp 16 02/17/25 07:18 BP 118/58 L 02/17/25 07:18 Pulse Ox 98 02/17/25 07:18 O2 Del Method Room Air 02/17/25 07:18 BMI result Body Mass Index 32.7 DS: Data Data Completed and Pending Labs on day of discharge: Laboratory Results - last 24 hr 02/16/25 02/16/25 02/16/25 08:05 11:21 15:30 POC Glucose 115 141 H 118 H 02/16/25 02/17/25 21:49 07:20 POC Glucose 141 H 122 H Preliminary micro results at discharge 02/14/25 18:46 Blood Culture - Preliminary Blood - Venous No growth after 48 hours. 02/14/25 18:46 Blood Culture - Preliminary Blood - Venous No growth after [address] scan - abdomen: My impression: 1. Diminished left perinephric inflammatory changes with unchanged left renal parenchymal inhomogeneous enhancement compatible with pyelonephritis and/or focal bacterial nephritis. 2. Mild urinary bladder wall thickening suggests cystitis. Findings are unchanged. Discharge Plan Discharge Anticipated Discharge Date/Time: 02/17/25 07:37 Patient Disposition: Home, Self-Care Discharge Diagnosis: Pyelonephritis, hypokalemia Referrals: Physician,Unknown J [Primary Care Provider, Medical] - 1 Week Discharge Medications: New cefuroxime axetil 500 mg Tablet 500 mg PO Q12H Qty: 20 0RF potassium chloride 8 mEq capsule, extended release 8 meq PO DAILY Qty: 4 0RF Continued (DME) To [facility] See Rx Instructions .Route .MEDSUPPLY Qty: 1 0RF Rx Instructions: .?Occupational Therapy evaluation for functional community mobility. (DME) FreeStyle Lite Strips Strip See Rx Instructions .ROUTE .MEDSUPPLY Qty: 100 6RF Rx Instructions: test blood sugar twice a day (DME) lancing device Misc See Rx Instructions .ROUTE .MEDSUPPLY Qty: 1 0RF Rx Instructions: As directed (DME) miscellaneous medical supply Misc See Rx Instructions .Route Qty: 1 0RF Rx Instructions: Use As directed (DME) Hand-held shower See Rx Instructions .Route .MEDSUPPLY Qty: 1 0RF Rx Instructions: Use As directed (DME) Re-usable bed pads See Rx Instructions .Route .MEDSUPPLY Qty: 4 2RF Rx Instructions: Use As directed (DME) Adult pull-ups large See Rx Instructions .Route .MEDSUPPLY Qty: 150 11RF Rx Instructions: Use As directed (DME) diaphers large See Rx Instructions .Route .MEDSUPPLY Qty: 100 11RF Rx Instructions: As directed (DME) Raised toilet seat See Rx Instructions .Route .MEDSUPPLY Qty: 1 0RF Rx Instructions: As directed lisinopril-hydrochlorothiazide 10-12.5 mg tablet 1 tab PO DAILY Qty: 90 1RF atorvastatin 80 mg tablet 80 mg PO BEDTIME 90 Days Qty: 90 1RF ezetimibe 10 mg tablet 10 mg PO DAILY Qty: 90 1RF Rx Instructions: NEED SCHEDULED APPOINTMENT FOR FUTURE REFILLS (DME) FreeStyle Lite Strips Strip See Rx Instructions .Route Qty: 100 5RF Rx Instructions: Check fasting blood sugar twice a day before meals ibuprofen 600 mg tablet 600 mg PO BID PRN (Reason: for pain) Qty: 40 0RF meclizine 12.5 mg tablet 12.5 mg PO TID PRN (Reason: vertigo) 5 Days Qty: 20 0RF dulaglutide 1.5 mg/0.5 mL pen injector 1.5 mg subcut TH metformin 500 mg tablet 500 mg PO DAILY ferrous sulfate 325 mg (65 mg iron) tablet 325 mg PO DAILY Qty: 90 1RF amlodipine 2.5 mg tablet 5 mg PO DAILY (DME) blood pressure monitor Kit See Rx Instructions .Route Qty: 1 0RF Rx Instructions: As directed (DME) blood-glucose meter [FreeStyle Lite Meter] Kit See Rx Instructions .ROUTE .MEDSUPPLY Qty: 1 0RF Rx Instructions: Three times a day Discharge Orders: Discharge Order (Routine); Ordered 02/17/25 Ordered By: Oksana Shepherd Diet: Advance to usual diet Activity on Discharge: As tolerated Stand Alone Forms: Patient Portal Discharge page Print Language: Luxembourgish Care Plan Goals: ceftin 500 mg po bid for 10 days. Hypokalemia repleted and resolved. Limited potassium supply was given. Monitor BMP outpatient and follow up with PCP. Health Concerns: As above. Plan of Treatment: As above. Assessment: As above. Patient Instructions: Kidney Infection (DC) Discharge Date/Time: 02/17/25 11:47
[2025-02-17] MEDS: Ferrous Sulfate 324 MG TABLET.DR PO (08:00)
[2025-02-17] MEDS: 0.9 % Sodium Chloride Flush 3 ML SYRINGE IVFLUSH (08:04)
[2025-02-17 08:12] LABS: Potassium 3.5 mmol/L (3.3-5.1)
--- NOTE | 2025-02-17 09:24 | MHC.CM.PN ---
pt dcd home with resumption of [employer]izer
[2025-02-17 11:04] VITALS: BP 163/70; PULSE 70; RESP 16; TEMP 36.2; O2SAT 97
[2025-02-17 11:19] LABS: Glucose, Whole Blood 142 mg/dL (60-115)
== END 2025-02-17 11:47 | disposition home or self-care (01) | DRG 690 ==
LOC: HO.ED 21:19 → HO.EDOVER 21:29 → HO.S3 02-15 15:39
PROVIDERS: Admitting Provider Internal Medicine; Emergency Provider Emergency Medicine; PCP Internal Medicine; Visit Provider Internal Medicine
DX: N10 Acute pyelonephritis (principal); I69.354 Hemiplegia and hemiparesis following cerebral infarction affecting left non-dominant side; I25.10 Atherosclerotic heart disease of native coronary artery without angina pectoris; Z87.440 Personal history of urinary (tract) infections; E87.6 Hypokalemia; E78.5 Hyperlipidemia, unspecified; I10 Essential (primary) hypertension; E11.9 Type 2 diabetes mellitus without complications; Z79.84 Long term (current) use of oral hypoglycemic drugs; Z79.899 Other long term (current) drug therapy
CPT/HCPCS: 36415; 74177; 80048; 80053; 81001; 81003; 82803; 82947; 83605; 83735; 84132; 85025; 87040; 87086; 87088; 87186; 93005; 99285; J0696; J1650; J2270; J2405; J3480; J7120; Q9967

== ENCOUNTER → 2025-02-14 17:45 | Outpatient (BNV) | payer OTHER, SELFPAY | PROVIDERS: Admitting Provider Internal Medicine; Emergency Provider Emergency Medicine; Visit Provider Internal Medicine Cardiovascular Disease | DX: R94.31 Abnormal electrocardiogram [ECG] [EKG] (principal); R42 Dizziness and giddiness; R11.0 Nausea | CPT/HCPCS: 93010 ==

== ENCOUNTER → 2025-02-14 19:37 | Outpatient (BNV) | payer OTHER, SELFPAY | PROVIDERS: Emergency Provider Emergency Medicine; Visit Provider Radiology Diagnostic Radiology | DX: K57.30 Diverticulosis of large intestine without perforation or abscess without bleeding (principal); N30.20 Other chronic cystitis without hematuria | CPT/HCPCS: 74177 ==

== ENCOUNTER → 2025-02-14 21:16 | Outpatient (BNV) | payer OTHER, SELFPAY | PROVIDERS: Admitting Provider Internal Medicine; Emergency Provider Emergency Medicine; Visit Provider Internal Medicine | DX: N30.00 Acute cystitis without hematuria (principal); E87.6 Hypokalemia | CPT/HCPCS: 99223 ==

== ENCOUNTER → 2025-02-14 21:16 | Outpatient (BNV) | payer OTHER, SELFPAY | PROVIDERS: Admitting Provider Internal Medicine; Emergency Provider Emergency Medicine; Visit Provider Internal Medicine | DX: N12 Tubulo-interstitial nephritis, not specified as acute or chronic (principal) | CPT/HCPCS: 99222 ==

== ENCOUNTER 2025-02-28 11:43 | Outpatient (AMB) | payer OTHER, SELFPAY ==
--- NOTE | 2025-02-28 11:51 | A.OFFVIS_ITS ---
Vital Signs 3 02/28/25 11:53 Height 5 ft Weight 154 lb 5.177 oz BMI 30.1 BP 186/89 H Blood Pressure Location Lt brachial Position Sitting Pulse 69 Intake Visit Reasons: Colonoscopy screening/anemia Intake Note: Ada presents in the office as a screening for a colo and anemia. CC: She states that she is due for a colonoscopy. Targeting Acquisition Officer Required: No Allergies No Known Allergies (No Known Allergies*) Allergy (Verified 02/28/25 11:54) HPI HPI Colonoscopy screening/anemia: Details: 59-year-old female here for preprocedural meeting to discuss a screening colonoscopy. She is referred by María Cooper. PMX PATRICK Obesity Asthma Hypertension High cholesterol CAD Diabetes History of UTI sepsis History of pyelonephritis History of CVA Gout Shoulder arthritis History of uterine cancer * SURGICAL HISTORY Hand surgery Carpal tunnel release EGD-2018 Colonoscopy 2014 Cholecystectomy Hysterectomy * ALLERGIES: NKDA Assessment & Plan (1) Tubular adenoma of colon: Code(s): D12.6 - Benign neoplasm of colon, unspecified Category: Medical Plan: She tells me that she is aware that she is due for another colonoscopy. I ask if she has changed her health history and she says she has had some more strokes the last being last year. This resulted in some right-sided weakness and she was discontinued off of all of her blood thinner medications including NSAID and aspirin. Otherwise, she denies any cardiac or respiratory problems. She has not had any prior problems with anesthesia or sedation. She denies any current bowel problems. Orders: Orders: Comprehensive Met. Panel Today Complete Blood Count Auto Diff Today Medications: New: peg 3350-electrolytes 236-22.74-6.74 -5.86 gram (Golytely) until fecal effluent is clear; do not exceed a total volume of 2,000 mL 240 mL PO Q10M 4,000 mL 0RF (2) PATRICK (obstructive sleep apnea): Code(s): G47.33 - Obstructive sleep apnea (adult) (pediatric) Category: Medical (3) Obesity: Code(s): E66.9 - Obesity, unspecified Category: Medical LABS: Laboratory Tests 02/15/25 02/16/25 04:23 05:59 WBC 14.2 H RBC 3.13 L Hgb 8.9 L Hct 27.1 L MCV 86.6 MCH 28.4 Plt Count 154 L Estimated GFR > 60 Laboratory Tests 02/14/25 17:46 Estimated GFR 53 Total Bilirubin 0.4 AST 17 ALT 10 Alkaline Phosphatase 69 THE COLONOSCOPY HAS NOT YET BEEN OBTAINED RELEVANT PMX HISTORY OF CVA PATRICK Asthma Obesity History of tubular adenoma CAD TODAY'S VISIT This patient has been lost to follow-up since 2019. APPARENTLY SHE HAS HAD MULTIPLE HEALTH PROBLEMS THAT PREVENTED HER FROM HAVING THE PROCEDURE AND NOW SHE ALSO NEEDS TO BE SCREENED FOR ANEMIA. [facility] Medical History History of adenomatous polyp of colon Iron deficiency anemia Hx of cancer of uterus Diabetes mellitus with retinopathy History of CVA with residual deficit Atherosclerotic cardiovascular disease Intracranial atherosclerosis Normocytic normochromic anemia Cancer History of degenerative joint disease GERD (gastroesophageal reflux disease) Sleep apnea Asthma Depression Vitamin D deficiency Essential hypertension Dyslipidemia Type 2 diabetes mellitus without complication, without long-term current use of insulin Surgical History Hx of hand surgery History of carpal tunnel release Hx of endoscopy Hx of colonoscopy Hx of cholecystectomy History of total abdominal hysterectomy Family History Father Cancer Mother Cancer Myocardial infarction Family/Other Diabetes Social History Household Members: None Housing: Apartment Do you presently have visiting nurse or other home services: Yes Alcohol intake: never Patient Tobacco Use Status: Never used Tobacco e-Cigarette/Vaping Use: Never Used Second Hand Smoke Exposure: No Advance Directives Date on File: 01/20/21 service: No Current occupational status: disabled Current occupation: rt handed Cognitive needs: No Hearing needs: No Vision needs: No Review of Systems Const Denies fatigue, Denies fever(s), Denies night sweats, Reports poor appetite and Reports weight loss (She attributes this to her GLP 1 and intentional dieting) ENT Reports Normal hearing present, Denies dysphagia, Reports vertigo, Reports dizziness, Denies odynophagia, Denies throat swelling and Denies tongue swelling Card Reports no additional complaints and Reports dyspnea on exertion Resp Reports dyspnea on exertion GI Details: Denies abdominal pain, Denies melena, Denies bloating, Denies hematochezia, Denies constipation, Denies GI cramping, Denies dysphagia, Denies excessive flatus, Reports early satiety, Denies heartburn, Reports diarrhea, Reports nausea, Denies odynophagia, Denies vomiting and Denies hematemesis Skin/Breast Denies pruritus, Denies lesions, Denies rash and Denies jaundice Neuro Reports Normal hearing present, Denies Abnormal speech present, Reports vertigo, Reports dizziness, Reports memory loss and Reports paresthesias Psych Reports memory loss Endo Denies fatigue Aller/Immun Denies throat swelling and Denies tongue swelling Physical Exam Vital Signs: Last Vital Signs Pulse 69 02/28/25 11:53 BP 186/89 H 02/28/25 11:53 BMI result Body Mass Index 30.1 Const General: cooperative, no acute distress, well developed and well groomed Nutritional Appearance: well nourished and obese Orientation/consciousness: oriented to person, oriented to place and oriented to time Limitations: No language barrier HEENT Other: Left-sided facial droop Head: Yes normocephalic and Yes atraumatic Eyes General: appearance normal, both eyes and all related structures Pupils: Equal, round and reactive pupils present Neck Neck: Yes normal visual inspection and Yes no lymphadenopathy Thyroid: Thyroid normal Resp Effort & Inspection: normal respiratory effort and able to speak in complete sentences Auscultation: clear to auscultation bilaterally Cardio Rate: regular rate Rhythm: regular rhythm Heart sounds: Normal, physiologic split S2 sound present Peripheral pulses: radial pulses present and posterior tibial pulses present GI Inspection: No distended, Yes Abdominal panniculus present and Yes obesity Palpation (GI): Soft to palpation, nontender, no guarding, not rigid and No hepatosplenomegaly present Percussion: Yes normal to percussion Auscultation: normal bowel sounds Rectal Exam - Female: deferred Abdomen image: 2 1. surgical scar Skin General skin exam: no rashes or lesions noted, turgor normal, skin not dry, no jaundice, No spider nevi and no striae Rashes: no rashes Nails: normal Neuro General: oriented to person, oriented to place and oriented to time Cranial nerves: Yes Equal, round and reactive pupils present and Yes Normal hearing present Speech: No Abnormal speech present Extrem General: No clubbing, No cyanosis, Yes edema (l>r only in feet) and Yes muscle atrophy (With contracture left side) Psych Appearance: grossly normal and well kempt Mental Status: mental status grossly normal Speech and movement: Normal speech and movement present Affect: normal affect Attitude: cooperative Thought process: not confabulating and Impoverished thought process present Thought content: Normal thought content present Insight: Limited insight present (Psych) Judgement: Limited judgement present (Psych) Assessment & Plan Assessment & Plan (1) PATRICK (obstructive sleep apnea): Code(s): G47.33 - Obstructive sleep apnea (adult) (pediatric) Category: Medical (2) Asthma: Code(s): J45.909 - Unspecified asthma, uncomplicated Category: Medical (3) Iron deficiency anemia: Code(s): D50.9 - Iron deficiency anemia, unspecified Category: Medical Qualifiers: Iron deficiency anemia type: unspecified iron deficiency Qualified Code(s): D50.9 - Iron deficiency anemia, unspecified (4) Pre-op examination: Code(s): Z01.818 - Encounter for other preprocedural examination Category: Medical (5) Diabetes mellitus with retinopathy: Code(s): E11.319 - Type 2 diabetes mellitus with unspecified diabetic retinopathy without macular edema Category: Medical Qualifiers: Diabetes mellitus correction insulin use: without chief talent officer use Diabetes mellitus type: type 2 Diabetic retinopathy severity: with proliferative retinopathy Laterality: bilateral Proliferative retinopathy type: stable Q ualified Code(s): E11.3553 - Type 2 diabetes mellitus with stable proliferative diabetic retinopathy, bilateral (6) Early satiety: Code(s): R68.81 - Early satiety Category: Medical (7) Nausea: Code(s): R11.0 - Nausea Category: Medical (8) Thrombocytopenia: Code(s): D69.6 - Thrombocytopenia, unspecified Category: Medical Plan She has had multiple recent hospitalizations for UTI sepsis. She has also had severe hypokalemia which it was thought to be caused by the metabolic acidosis. She is not on any diuretics, she had diarrhea in the past but this seems to have stopped with her GLP 1, while she has nausea and early satiety she does not vomit and she says that she does not have any kidney disease. She is uncertain why she keeps getting urinary tract infections and given the severity of her response I did recommend to her that she request a urologist consult. It certainly seems that stopping the cascade of infection would be the best way to prevent future hypokalemia and other adverse health outcomes. She is uncertain whether she has sleep apnea, saying that she was sent for a test but she did not sleep so they could not tell. She has a history of coronary artery disease but no current cardiac complaints except for some shortness of breath on exertion. She believes this is due to her anemia. She reports profound nausea along with early satiety. She has a poor memory so she can not really tell me if this coincides with the beginning of her GLP 1 medication. However, she does have diabetic neuropathy so I think a gastric emptying study would be prudent. It seems she is currently being treated with Zofran. She denies any constipation currently. There are no prior problems with anesthesia or sedation. There are no infectious disease problems. She does not know/remember if there is a family history of colon cancer or colon polyps. Her last colonoscopy was in [address] Lewis and unfortunately the results of this procedure are lost to the computer conversion. Return office visit after either her gastric emptying study or EGD/colonoscopy whichever comes 1st. Orders: Orders 2 Hemoglobin A1c Today D50.9 - Iron deficiency anemia, unspecified, E11.3553 - Type 2 diabetes mellitus with stable proliferative diabetic retinopathy, bilateral Ferritin Today D50.9 - Iron deficiency anemia, unspecified, E11.3553 - Type 2 diabetes mellitus with stable proliferative diabetic retinopathy, bilateral NM gastric emptying study Today R11.0 - Nausea, R68.81 - Early satiety Referrals 2 GI Procedure Notification D50.9 - Iron deficiency anemia, unspecified, G47.33 - Obstructive sleep apnea (adult) (pediatric), J45.909 - Unspecified asthma, uncomplicated, Z01.818 - Encounter for other preprocedural examination Medications: New 2 peg 3350-electrolytes 236-22.74-6.74 -5.86 gram (Golytely) until fecal effluent is clear; do not exceed a total volume of 2,000 mL 240 mL PO Q10M 4,000 mL 0RF 1 day Z12.11 - Encounter for screening for malignant neoplasm of colon bisacodyl (Dulcolax (bisacodyl)) 10 mg (2 x 5 mg) PO BEDTIME 4 tabs 0RF 2 days Coding Level of Care Code New Pt Level 3 (99725) Diagnoses PATRICK (obstructive sleep apnea) G47.33 Asthma J45.909 Iron deficiency anemia, unspecified iron deficiency anemia type D50.9 Iron deficiency anemia type: unspecified iron deficiency Pre-op examination Z01.818 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, without long-term current use of insulin E11.3553 Diabetes mellitus correction insulin use: without chief talent officer use Diabetes mellitus type: type 2 Diabetic retinopathy severity: with proliferative retinopathy Laterality: bilateral Proliferative retinopathy type: stable Early satiety R68.81 Nausea R11.0 Thrombocytopenia D69.6
[2025-02-28 11:53] VITALS: BP 186/89; PULSE 69; BMI 30.1
--- OUTSIDE RECORDS SUMMARY | 2025-02-28 15:06 | XMS_ITS | Clinical Summary ---
Author Organization [facility] ity Address [address] [place] [address] Care Team Providers Care Alarm Mechanic Name Role Phone Unavailable Primary Care Provider [...]
--- OUTSIDE RECORDS SUMMARY | 2025-02-28 15:06 | XMS_ITS | Clinical Summary ---
Author Organization [facility] Address [address] [place] [phone] Phone Care Team Providers Care Foil Cutter Name Role Phone Unknown, Unknown Primary Care [...] topic Medical Devices Not on file [place] [place] [address] [employer] ONE CARE MEDICARE PART A & B [facility] ONE CARE MEDICARE REPLACEMENT [place] [employer] ONE CARE MEDICARE PART A & B [facility] ONE CARE MEDICARE REPLACEMENT [place] [employer] ONE CARE MEDICARE PART A & B ONE CARE MEDICARE [place] [address] [address] [place] [address] ONE CARE MEDICARE PART A & B [facility] CARE MEDICARE REPLACEMENT [facility] CARE MEDICARE PART A & B [facility] CARE MEDICARE REPLACEMENT [place] [employer] ONE CARE MEDICARE PART A & B [facility] ONE CARE MEDICARE REPLACEMENT [place] [employer] ONE C[employer] MEDICARE PART A & B [facility] ONE CARE MEDICARE REPLACEMENT [facility] ONE CARE MEDICARE PART A & B [facility] CARE MEDICARE REPLACEMENT [place] [employer] ONE CARE MEDICARE PART A & B [facility] ONE CARE MEDICARE REPLACEMENT Care Teams Foil Cutter Relationship Specialty Start Date End Date Unknown, Unknown, PCP - General 01/01/15 Additional Source Comments The information contained in this document represents components of the legal health record. It is not the complete legal health record.[facility]
== END 2025-02-28 12:40 | disposition home or self-care (01) ==
LOC: HO.HGI 11:44
PROVIDERS: PCP Internal Medicine; Visit Provider Nurse Practitioner
DX: E11.3553 Type 2 diabetes mellitus with stable proliferative diabetic retinopathy, bilateral (principal); D50.9 Iron deficiency anemia, unspecified; R68.81 Early satiety; R11.0 Nausea; D69.6 Thrombocytopenia, unspecified
CPT/HCPCS: 99203

== ENCOUNTER → 2025-02-28 11:43 | Outpatient (BNVA) | payer OTHER, SELFPAY | PROVIDERS: PCP Internal Medicine; Visit Provider Nurse Practitioner | DX: Z01.818 Encounter for other preprocedural examination (principal); R68.81 Early satiety; R11.0 Nausea; D69.6 Thrombocytopenia, unspecified; D50.9 Iron deficiency anemia, unspecified; E11.3553 Type 2 diabetes mellitus with stable proliferative diabetic retinopathy, bilateral; J45.909 Unspecified asthma, uncomplicated; G47.33 Obstructive sleep apnea (adult) (pediatric) | CPT/HCPCS: 99202 ==

== ENCOUNTER 2025-03-07 16:18 | Inpatient (IN) | payer OTHER, SELFPAY ==
--- NOTE | ~2025-03-07 | XR_ITS ---
CLINICAL HISTORY: L hip TTP, fall 3 view, pelvis and left hip Comparison: None provided Findings: Mild osteopenia. No fracture or dislocation. No significant arthritic change. The soft tissues are unremarkable. Calcified atherosclerotic disease of the renal arteries. Multiple surgical clips in the right hemipelvis. IMPRESSION: 1. Mild osteopenia. 2. Calcified atherosclerotic disease of the renal arteries. 3. Multiple surgical clips in the right hemipelvis. 4. No acute osseous injury. This document has been electronically signed by: Neel Ordaz MD on 03/07/2025 18:48:40
--- NOTE | ~2025-03-07 | CT_ITS ---
CLINICAL HISTORY: L flank tenderness, fall chest wall tender L CT chest with contrast Comparison: CT - CT CHEST WITH IV CONTRAST - 08/14/2023 03:26 PM EDT Findings: Calcified coronary atherosclerotic disease. The visualized thyroid and mediastinum are unremarkable. The lungs are clear. Prior cholecystectomy. Partly visualized left perinephric inflammatory changes within Gerota's fascia. Diffuse idiopathic skeletal hyperostosis Mild osteopenia. IMPRESSION: 1. Calcified coronary atherosclerotic disease. 2. Left perinephric inflammatory changes within Gerota's fascia; descending colon diverticulitis. Please refer to CT of the abdomen and pelvis performed concurrently. 3. Diffuse idiopathic skeletal hyperostosis. 4. No acute intrathoracic findings. This document has been electronically signed by: Neel Ordaz MD on 03/07/2025 22:28:41
--- NOTE | ~2025-03-07 | CT_ITS ---
CLINICAL HISTORY: fall, tender L side, pyelo L CT abdomen and pelvis with contrast Comparison: CT/REG/SR - CT CHEST W IV CON - 03/07/25 21:[address]/SR - CT ABDOMEN PELVIS W IV CON - 02/14/25 19:59 EDT Findings: The lung bases are clear. Subtle heterogeneity of parenchymal enhancement left kidney and moderate left perinephric fat stranding. These findings are more prominent than the prior exam. Bilobed right renal cyst 6.2 cm. No bowel obstruction, pneumoperitoneum, or pneumatosis. Appendix is not identified. Colonic diverticulosis without diverticulitis. Healing hysterectomy. Ovaries not identified. Urinary bladder is mostly decompressed and mildly thick-walled as a result. No ascites or hernia. Moderate to severe lumbar degenerative spondylosis. No acute fracture. IMPRESSION: Findings suggesting left pyelonephritis. Slightly more evident compared to the prior exam. No abscess. This document has been electronically signed by: Raghav Crespo MD on 03/07/2025 22:35:39
--- NOTE | ~2025-03-07 | XR_ITS ---
CLINICAL HISTORY: L chest wall pain 1 view chest x-ray Comparison: CR - XR CHEST 1V - 12/12/24 18:08 EDT Findings: The lungs are clear. Cardiomegaly. Mild osteopenia. IMPRESSION: 1. Cardiomegaly. 2. No acute cardiopulmonary findings. This document has been electronically signed by: Neel Ordaz MD on 03/07/2025 18:49:04
[2025-03-07 16:24] VITALS: BP 142/90; PULSE 84; O2SAT 99
[2025-03-07 16:55] VITALS: BP 134/87; PULSE 94; RESP 16; TEMP 37.1; O2SAT 97; BMI 34.2
--- NOTE | 2025-03-07 16:59 | ECG_ITS ---
Test Reason : FALL Blood Pressure : */* mmHG Vent. Rate : 81 BPM Atrial Rate : 81 BPM P-R Int : 154 ms QRS Dur : 82 ms QT Int : 364 ms P-R-T Axes : 56 46 31 degrees QTcB Int : 422 ms Normal sinus rhythm Normal ECG When compared with ECG of 14-Feb-2025 18:02, No significant change was found Referred By: Edouard Martinez Electronically Signed By: Poncho Nieto
--- NOTE | 2025-03-07 17:00 | ED.FALL ---
HPI - Fall General Chief Complaint: Fall Stated Complaint: FALL DIZZY Time Seen by Provider: 03/07/25 16:49 History of Present Illness ED Provider: kyara HPI Narrative: 59 hx CVA hemiparetic. UTI/lowK admission, DCd on Abx and K recently. Lightheaded and then fell. Patient reports to me she felt slightly lightheaded in the morning took her blood sugar which was in the normal range 120s she was walking and collapsed onto the left side she was using her walker prior to this she has a CVA with residual weakness. She fell onto the left side denies head strike no head pain or neck pain. She eventually got herself up took a nap and later called EMS for evaluation as she had pain in the left chest/hip region. The patient has no new focal neurologic symptoms nor any headache. Denies palpitations chest pain before or after the event. Related Data Home Medications ?Medication ?Instructions ?Recorded ?Confirmed dulaglutide 1.5 mg/0.5 mL 1.5 mg subcut TH 12/12/24 02/19/25 subcutaneous pen injector amlodipine 2.5 mg tablet 5 mg PO DAILY 12/26/24 02/19/25 metformin 500 mg tablet 500 mg PO DAILY 02/14/25 02/19/25 Previous Rx's ?Medication ?Instructions ?Recorded To [place] [facility] #1 ea 04/06/23 blood sugar diagnostic (FreeStyle #100 ea 04/17/23 Lite Strips) lancing device #1 ea 04/18/23 Adult pull-ups #150 ea 05/17/24 Hand-held shower #1 ea 05/17/24 Raised toilet seat #1 ea 05/17/24 Re-usable bed pads #4 ea 05/17/24 diaphers #100 ea 05/17/24 miscellaneous medical supply #1 ea 05/17/24 lisinopril 10 1 tab PO DAILY #90 tabs 08/01/24 mg-hydrochlorothiazide 12.5 mg tablet meclizine 12.5 mg tablet 12.5 mg PO TID PRN vertigo 5 days 09/22/24 #20 tabs atorvastatin 80 mg tablet 80 mg PO BEDTIME 3 months #90 tabs 10/02/24 blood sugar diagnostic (FreeStyle #100 ea 10/02/24 Lite Strips) ezetimibe 10 mg tablet 10 mg PO DAILY #90 tabs 10/02/24 ferrous sulfate 325 mg (65 mg 325 mg PO DAILY #90 tabs 12/04/24 iron) tablet blood pressure monitor #1 ea 12/26/24 blood-glucose meter (FreeStyle #1 ea 12/26/24 Lite Meter kit) cefuroxime axetil 500 mg tablet 500 mg PO Q12H #20 tabs 02/17/25 ibuprofen 600 mg tablet 600 mg PO BID PRN for pain #40 tabs 02/19/25 bisacodyl 5 mg tablet,delayed 10 mg (2 x 5 mg) PO BEDTIME 2 days 02/28/25 release (Dulcolax (bisacodyl)) #4 tabs peg 3350-electrolytes 236 240 ml PO Q10M 1 day #4,000 mL 02/28/25 gram-22.74 gram-6.74 gram-5.86 gram solution (Golytely) cholecalciferol (vitamin D3) 1,250 1,250 mcg PO QWEEK 3 months #13 03/05/25 mcg (50,000 unit) capsule caps Allergies Allergy/AdvReac Type Severity Reaction Status Date / Time No Known Allergies (No Known Allergy Verified 03/07/25 16:58 Allergies*) FORMERLY [facility], [facility] Past Medical History Medical History History of adenomatous polyp of colon Iron deficiency anemia Hx of cancer of uterus Diabetes mellitus with retinopathy History of CVA with residual deficit Atherosclerotic cardiovascular disease Intracranial atherosclerosis Normocytic normochromic anemia Cancer History of degenerative joint disease GERD (gastroesophageal reflux disease) Sleep apnea Asthma Depression Vitamin D deficiency Essential hypertension Dyslipidemia Type 2 diabetes mellitus without complication, without long-term current use of insulin Surgical History Hx of hand surgery History of carpal tunnel release Hx of endoscopy Hx of colonoscopy Hx of cholecystectomy History of total abdominal hysterectomy Family History Family History Father Cancer Mother Cancer Myocardial infarction Family/Other Diabetes Social History Social History Household Members: None Housing: Apartment Do you presently have visiting nurse or other home services: Yes Alcohol intake: never Patient Tobacco Use Status: Never used Tobacco e-Cigarette/Vaping Use: Never Used Second Hand Smoke Exposure: No Advance Directives: Yes Advance Directives on File: Yes Advance Directives Date on File: 01/20/21 Do you have a plan to hurt others: No Plan Patient : No service: No Current occupational status: disabled Current occupation: rt handed Cognitive needs: No Hearing needs: No Vision needs: No Physical Exam Exam: Exam: GENERAL: Well appearing. No apparent distress. Alert. Hemiparetic, comfortable appearing but complaining of pain HEAD/NECK: Normal to inspection. Neck supple. No cervical lymphadenopathy. EYES: Normal to inspection. Sclera non-icteric. ENMT: External nose normal. Facial droop chronic RESPIRATORY: Respiratory effort normal. Lungs clear to auscultation bilaterally. CARDIOVASCULAR: Regular rate. Normal rhythm. No murmur. No rubs. GI: Soft, non-tender, non-distended. No rebound or guarding. No masses palpable. No hepatosplenomegaly. Left CVA tenderness MSK: Left-sided chest wall tenderness without bruising or crepitus left pelvis/hip discomfort on palpation SKIN: No jaundice. NEUROLOGICAL: Alert. PSYCHIATRIC: Alert. Appearance appropriate for situation. Attitude cooperative. OTHER: Comprehensive Neuro exam: Chronic facial droop and hemiparesis Vital Signs: Vital Signs: Last Vital Signs Temp 98.0 F 03/07/25 20:45 Pulse 86 03/07/25 20:45 Resp 14 03/07/25 20:45 BP 128/55 L 03/07/25 20:45 Pulse Ox 97 03/07/25 20:45 O2 Del Method Room Air 03/07/25 20:45 BMI result Body Mass Index 34.2 Medications Administered Generic Name Dose Route Start Last Admin Trade Name Freq PRN Reason Stop Dose Admin Enoxaparin Sodium 40 mg 03/07/25 23:00 03/08/25 00:15 Enoxaparin Sodium 40 Mg/0.4 Ml Syringe SUBCUT 40 mg Q24H BUSTER Administration Oxycodone HCl 5 mg 03/07/25 22:56 03/08/25 00:16 Oxycodone Hcl Immed Release 5 Mg Tablet PO 5 mg Q6H PRN Administration Pain, Severe (Pain Scale 7-10) Discontinued Medications Generic Name Dose Route Start Last Admin Trade Name Cathryn PRN Reason Stop Dose Admin Ceftriaxone Sodium 2 gm/ 50 mls @ 100 mls/hr 03/07/25 19:54 03/07/25 21:25 Sodium Chloride IV 03/07/25 20:23 Infused ONCE ONE Infusion Lactated Ringer's 1,000 mls @ 999 mls/hr 03/07/25 22:45 03/07/25 22:42 Lr IV 03/07/25 23:45 999 mls/hr .Q1H1M BUSTER Administration Iohexol 85 ml 03/07/25 21:21 03/07/25 21:26 Iohexol 350 Mg/Ml 100 Ml Infus..Btl IV 03/07/25 21:22 85 ml ONCE ONE Administration Lidocaine 1 patch 03/07/25 17:01 03/07/25 20:26 Lidocaine 4 % Patch Adh..Patch TRANSDERMA 03/07/25 17:02 1 patch ONCE ONE Administration Protocol Morphine Sulfate 4 mg 03/07/25 21:06 03/07/25 21:27 Morphine Sulfate 4 Mg/Ml Cartridge IVPUSH 03/07/25 21:07 4 mg ONCE ONE Administration Protocol Tramadol HCl 50 mg 03/07/25 20:14 03/07/25 20:23 Tramadol Hcl 50 Mg Tablet PO 03/07/25 20:15 50 mg ONCE ONE Administration Medical Decision Making Medical Decision Making MDM Narrative: Medical Decision Makin-year-old patient with obesity diabetes pre previous CVA with hemiparesis at baseline had a syncopal event with a lightheaded prodrome without palpitations chest pain. She took a nap after this after getting herself up and had a delayed presentation for evaluation. Primarily complaining of pain left side. No head or neck trauma or suggestion of traumatic injury to the head neck or face CT chest abdomen and pelvis excludes injury but incidentally we see worse evidence of pyelonephritis in the left the patient has leukocytosis and urinalysis does suggest UTI the patient did acknowledge dysuria after these findings were identified to her. The patient recently had Klebsiella pansensitive pyelonephritis and just finished antibiotics 3 days ago. Likely recurrent pyelonephritis or incompletely treated pyelonephritis given the leukocytosis worsening CT pyelonephritis findings we will admit once again IV ceftriaxone ordered urine culture sent. No sirs criteria met. Lactate 1.0. No hypotension. Preliminary Favored Differential Diagnosis: Chest or abdominal wall injury. Syncope possibly dysrhythmia ortho status, vasovagal, unlikely structural or valvular issue, occult infection pyelonephritis UTI kidney stone among additional considered etiologies Testing Interpreted Independently: ?ECG: Sinus rhythm rate 81 QTC 422 no acute ischemic changes. Radiology or Lab testing Results Reviewed: ?See below for details Consults: ?See below for details Independent Historians/External Chart Reviews: ?See below for details Social Determinants of Health Impacting MDM/Planning: ?See below for details Lab Data MDM Lab Attestation statement: I reviewed the patient's lab results. 03/07/25 18:42 03/07/25 17:36 Labs: Lab Results 03/07/25 03/07/25 03/07/25 Range/Units 17:36 18:42 20:09 WBC 20.3 H (4.8-10.8) X10*3/uL RBC 4.09 L D (4.20-5.50) X10*6/uL Hgb 11.6 L D (12.0-16.0) g/dl Hct 35.9 L D (37.0-47.0) % MCV 87.8 (80.0-98.0) fL MCH 28.4 (27.0-33.0) pg MCHC 32.3 (31.0-35.0) g/dl RDW 14.8 (11.0-16.0) % Plt Count 197 D (160-400) X10*3/uL MPV 10.4 (9.4-12.3) fL Immature Gran % (Auto) Cancelled Neut % (Auto) Cancelled Lymph % (Auto) Cancelled [place] % (Auto) Cancelled Eos % (Auto) Cancelled Baso % (Auto) Cancelled Lymph # (Auto) Cancelled [place] # (Auto) Cancelled Eos # (Auto) Cancelled Baso # (Auto) Cancelled Abs Immat Gran (auto) Cancelled Absolute Neuts (auto) Cancelled Absolute Nucleated RBC 0.000 (0.0-0.012) X10*3/uL Nucleated RBC % (auto) 0.0 (0.0-0.2) /100WBC Neutrophils % (Manual) 81 H (45-73) % Band Neutrophils % 12 H (3-5) % Lymphocytes % (Manual) 3 L (20-40) % Monocytes % (Manual) 4 (2-11) % Abs Neuts (Manual) 18.9 H (2.0-8.3) X10*3/uL Lymphocytes # (Manual) 0.6 L (1.2-4.9) X10*3/uL Monocytes # (Manual) 0.8 (0.1-1.2) X10*3/uL Toxic Vacuolation PRESENT Platelet Estimate NORMAL (NORMAL) Plt Morphology Comment NORMAL RBC Morphology NORMAL Schistocytes 1+ (0-2) /OIF Smear Tech's Comments VERIFIED Sodium 143 (135-145) mmol/L Potassium 3.6 (3.3-5.1) mmol/L Chloride 107 (96-108) mmol/L Carbon Dioxide 27 (22-29) mmol/L Anion Gap 13 (12-20) BUN 18 H (9-16) mg/dL Creatinine 0.73 (0.5-1.4) mg/dL Estim Creat Clear Calc 75.5 Estimated GFR > 60 POC Glucose 145 H (60-115) mg/dL Random Glucose 138 H (60-115) mg/dL Calcium 9.0 (8.4-10.2) mg/dL Total Bilirubin 0.7 (0.0-1.0) mg/dL AST 22 (5-31) U/L ALT 15 (0-31) U/L Alkaline Phosphatase 85 (39-117) U/L Troponin I High Sens < 2.7 (<3.5-17.0) ng/L Total Protein 7.7 (6.5-8.0) g/dL Albumin 3.6 (3.5-5.0) g/dL Urine Color Urine Appearance Urine pH (5.0-9.0) Ur Specific [place] (1.005-1.025) Urine Protein (Neg-Trace) mg/dL Urine Glucose (UA) (Negative) mg/dL Urine Ketones (Negative) mg/dL Urine Blood (Negative) Urine Nitrite (Negative) Ur Leukocyte Esterase (Negative) Urine RBC (0-2) /HPF Urine WBC (0-5) /HPF Ur Squamous Epith Cells (0-2) /HPF Urine Bacteria (None Seen) Hyaline Casts (0-2) /LPF 11/05/25 Range/Units 20:30 WBC (4.8-10.8) X10*3/uL RBC (4.20-5.50) X10*6/uL Hgb (12.0-16.0) g/dl Hct (37.0-47.0) % MCV (80.0-98.0) fL MCH (27.0-33.0) pg MCHC (31.0-35.0) g/dl RDW (11.0-16.0) % Plt Count (160-400) X10*3/uL MPV (9.4-12.3) fL Immature Gran % (Auto) Neut % (Auto) Lymph % (Auto) [place] % (Auto) Eos % (Auto) Baso % (Auto) Lymph # (Auto) [place] # (Auto) Eos # (Auto) Baso # (Auto) Abs Immat Gran (auto) Absolute Neuts (auto) Absolute Nucleated RBC (0.0-0.012) X10*3/uL Nucleated RBC % (auto) (0.0-0.2) /100WBC Neutrophils % (Manual) (45-73) % Band Neutrophils % (3-5) % Lymphocytes % (Manual) (20-40) % Monocytes % (Manual) (2-11) % Abs Neuts (Manual) (2.0-8.3) X10*3/uL Lymphocytes # (Manual) (1.2-4.9) X10*3/uL Monocytes # (Manual) (0.1-1.2) X10*3/uL Toxic Vacuolation Platelet Estimate (NORMAL) Plt Morphology Comment RBC Morphology Schistocytes /OIF Smear Tech's Comments Sodium (135-145) mmol/L Potassium (3.3-5.1) mmol/L Chloride (96-108) mmol/L Carbon Dioxide (22-29) mmol/L Anion Gap (12-20) BUN (9-16) mg/dL Creatinine (0.5-1.4) mg/dL Estim Creat Clear Calc Estimated GFR POC Glucose (60-115) mg/dL Random Glucose (60-115) mg/dL Calcium (8.4-10.2) mg/dL Total Bilirubin (0.0-1.0) mg/dL AST (5-31) U/L ALT (0-31) U/L Alkaline Phosphatase (39-117) U/L Troponin I High Sens (<3.5-17.0) ng/L Total Protein (6.5-8.0) g/dL Albumin (3.5-5.0) g/dL Urine Color Yellow Urine Appearance Cloudy Urine pH 7.0 (5.0-9.0) Ur Specific [place] 1.015 (1.005-1.025) Urine Protein 100 (2+) H (Neg-Trace) mg/dL Urine Glucose (UA) Negative (Negative) mg/dL Urine Ketones Negative (Negative) mg/dL Urine Blood Small (1+) H (Negative) Urine Nitrite Negative (Negative) Ur Leukocyte Esterase Large (3+) H (Negative) Urine RBC 11-20 H (0-2) /HPF Urine WBC >50 H (0-5) /HPF Ur Squamous Epith Cells 0-2 (0-2) /HPF Urine Bacteria 4+ (None Seen) Hyaline Casts 0-2 (0-2) /LPF Chronic Conditions Patient?s care impacted by: Diabetes and Other (CVA) Discharge Plan Discharge Clinical Impression: UTI (urinary tract infection), Pyelonephritis, Chest wall contusion Patient Disposition: Admitted As Inpatient
[2025-03-07 18:00] VITALS: BP 128/55; PULSE 86; RESP 14; TEMP 36.7; O2SAT 97
[2025-03-07 18:08] LABS: Alanine Aminotransferase 15 U/L (0-31); Albumin Level 3.6 g/dL (3.5-5.0); Alkaline Phosphatase 85 U/L (39-117); Anion Gap 13 (12-20); Aspartate Amino Transferase 22 U/L (5-31); Blood Urea Nitrogen 18 mg/dL (9-16); Calcium 9.0 mg/dL (8.4-10.2); Carbon Dioxide 27 mmol/L (22-29); Chloride 107 mmol/L (96-108); Creatinine Clr Calc Pharmacy 75.5; Estimated Glomerular Filt Rate > 60; Potassium 3.6 mmol/L (3.3-5.1); Sodium 143 mmol/L (135-145); Total Protein 7.7 g/dL (6.5-8.0)
[2025-03-07 18:17] LABS: Troponin-I High Sensitivity < 2.7 ng/L (<3.5-17.0)
[2025-03-07 18:27] VITALS: BP 169/73; PULSE 82; RESP 16; TEMP 36.8; O2SAT 96
--- NOTE | 2025-03-07 18:28 | MHC.EDTECH ---
EKG DELAY DUE TO EKG BEING USED ANOTHER PATIENT NURSE AWARE
[2025-03-07 18:51] LABS: Hematocrit 35.9 % (37.0-47.0); Hemoglobin 11.6 g/dl (12.0-16.0); Mean Corpuscular HGB Conc 32.3 g/dl (31.0-35.0); Mean Corpuscular Hemoglobin 28.4 pg (27.0-33.0); Mean Corpuscular Volume 87.8 fL (80.0-98.0); NRBC Abs Auto 0.000 X10*3/uL (0.0-0.012); NRBC Pct Auto 0.0 /100WBC (0.0-0.2); Platelet Count 197 X10*3/uL (160-400); Red Blood Count 4.09 X10*6/uL (4.20-5.50); White Blood Count 20.3 X10*3/uL (4.8-10.8)
--- OUTSIDE RECORDS SUMMARY | 2025-03-07 19:13 | XMS_ITS | Clinical Summary ---
Author Organization [facility] ity Address [address] [place] [address] Care Team Providers Care Microsoft Architect Name Role Phone Unavailable Primary Care Provider [...]
--- OUTSIDE RECORDS SUMMARY | 2025-03-07 19:13 | XMS_ITS | Clinical Summary ---
Author Organization [facility] Address [address] [place] [phone] Phone Care Team Providers Care Distance Learning Coordinator Name Role Phone Unknown, Unknown Primary Care [...] topic Medical Devices Not on file [place] [address] [place] [address] TOTAL ONE CARE MEDICARE PART A & B [facility] ONE CARE MEDICARE REPLACEMENT [place] T[employer] ONE CARE MEDICARE PART A & B [facility] ONE CARE MEDICARE REPLACEMENT [place] [employer] ONE CARE MEDICARE PART A & B ONE CARE MEDICARE REPLACEMENT [address] [place] [address] ONE CARE MEDICARE PART A & B [facility] CARE MEDICARE REPLACEMENT [facility] CARE MEDICARE PART A & B [facility] CARE MEDICARE REPLACEMENT [facility] ONE CARE MEDICARE PART A & B [facility] ONE CARE MEDICARE REPLACEMENT [place] [facility] ONE CARE MEDICARE PART A & B [facility] ONE CARE MEDICARE REPLACEMENT [facility] ONE CARE MEDICARE PART A & B [facility] CARE MEDICARE REPLACEMENT [place] [place] [facility] ONE CARE MEDICARE PART A & B [facility] ONE CARE MEDICARE REPLACEMENT Care Teams Distance Learning Coordinator Relationship Specialty Start Date End Date Unknown, Unknown, PCP - General 01/01/15 Additional Source Comments The information contained in this document represents components of the legal health record. It is not the complete legal health record.[facility]
[2025-03-07 19:28] LABS: Neutrophils Percent Manual 81 % (45-73)
[2025-03-07 19:29] LABS: Band Neutrophils Percent 12 % (3-5); Lymphocytes Absolute Manual 0.6 X10*3/uL (1.2-4.9); Lymphocytes Percent Manual 3 % (20-40); Monocytes Absolute Manual 0.8 X10*3/uL (0.1-1.2); Monocytes Percent Manual 4 % (2-11); Neutrophils Absolute Manual 18.9 X10*3/uL (2.0-8.3)
[2025-03-07 19:30] LABS: RBC Morphology NORMAL
[2025-03-07 19:31] LABS: Schistocytes 1+ (0-2) /OIF
[2025-03-07 19:32] LABS: Toxic Vacuolation PRESENT
[2025-03-07 20:13] LABS: Glucose, Whole Blood 145 mg/dL (60-115)
[2025-03-07] MEDS: Lidocaine 4 % Patch ADH..PATCH 1 PATCH TRANSDERMA (20:26)
[2025-03-07 20:41] LABS: Appearance Urine Cloudy; Glucose Urine UA Negative (Negative); PH 7.0 (5.0-9.0); Specific Gravity - Urine 1.015 (1.005-1.025); UMIC TRIGGER UACC YES
[2025-03-07 20:45] VITALS: BP 128/55; PULSE 86; RESP 14; TEMP 36.7; O2SAT 97
[2025-03-07] MEDS: iohexoL 350 MG/ML 100 ML INFUS..BTL 85 ML IV (21:26)
[2025-03-07 21:59] LABS: UACC Culture Trigger YES
[2025-03-07] MEDS: Lactated Ringers 1,000 ML 999 ML IV (22:42)
--- NOTE | 2025-03-07 22:45 | HO.NURTONUR ---
Pt states at approx 1000 while at home she had sudden onset dizziness and went to check her bgl. Pt states she then fell on the floor landing on her L side. Pt was finally able to get herself up, but she said she just went to sleep. Pt came to ED approx 1600 for c/o L trunk pain and L flank pain. No obvious bruising/deformity noted. Pt denies loc. Pt also states she just recently completed a round of abx secondary to UTI 3 days ago. Pt has L sided hemiparesis at baseline but is able to ambulate w/ walker and stand-by assist. Pt lives by herself w/ temporary office assistant help. Pt admitted for worsening pyelonephritis.
--- NOTE | 2025-03-07 23:19 | PM.IMHP ---
History of Present Illness Date of Service: 03/07/25 Attending physician on admission: Jos Flores Chief Complaint: syncope, dysuria Patient is a 59-year-old female with a past medical history significant for history CVA with hemiparesis, type 2 diabetes, GERD, PATRICK, asthma, hypertension and hyperlipidemia, who presented to the ED due to a syncopal episode with fall as well as persistent dysuria. she reports that she was feeling dizzy, did not feel like the room was spinning, and she syncopized. no HS but did fall on L side. she is having soreness on her left flank area and ribs. no previous history of syncopal episodes. no chest pain or SOB prior to falling. she continues to have frequent urination and dysuria and just finished a course of antibiotics for pyelonephritis. She denies any fever but does have some nausea, no vomiting, abdominal pain or hematuria. Review of Systems Constitutional: Constitutional: Denies body ache(s), Denies chills, Denies fatigue, Denies fever(s) and Denies headache(s) Eyes: Eyes: Denies change in vision ENT: Denies headache(s), Denies nasal congestion and Denies sore throat Cardiovascular: Cardiovascular: Denies chest pain, Denies rapid heart rate, Denies leg edema, Reports lightheadedness and Denies dyspnea Respiratory: Respiratory: Denies chest congestion, Denies cough, Denies dyspnea and Denies wheezing Gastrointestinal: Gastrointestinal: Denies abdominal pain, Reports nausea and Denies vomiting Genitourinary: Genitourinary: Reports as per HPI Musculoskeletal: Musculoskeletal: Reports as per HPI Integumentary/Breasts: Skin/Breast: Denies rash Neurologic: Denies confusion and Denies headache(s) Psychiatric: Psychiatric: Denies confusion Endocrine: Endocrine: Denies fatigue Hematologic/Lymphatic: Hematologic/Lymphatic: Denies easy bleeding Allergic/Immunologic: Allergic/Immunologic: Denies wheezing [facility] Medical History History of adenomatous polyp of colon Iron deficiency anemia Hx of cancer of uterus Diabetes mellitus with retinopathy History of CVA with residual deficit Atherosclerotic cardiovascular disease Intracranial atherosclerosis Normocytic normochromic anemia Cancer History of degenerative joint disease GERD (gastroesophageal reflux disease) Sleep apnea Asthma Depression Vitamin D deficiency Essential hypertension Dyslipidemia Type 2 diabetes mellitus without complication, without long-term current use of insulin Functional capacity: independent ambulation Family History Father Cancer Mother Cancer Myocardial infarction Family/Other Diabetes Surgical History Hx of hand surgery History of carpal tunnel release Hx of endoscopy Hx of colonoscopy Hx of cholecystectomy History of total abdominal hysterectomy Social History Household Members: None Housing: Apartment Do you presently have visiting nurse or other home services: Yes Alcohol intake: never Patient Tobacco Use Status: Never used Tobacco e-Cigarette/Vaping Use: Never Used Second Hand Smoke Exposure: No Advance Directives: Yes Advance Directives on File: Yes Advance Directives Date on File: 01/20/21 Do you have a plan to hurt others: No Plan Patient : No service: No Current occupational status: disabled Current occupation: rt handed Cognitive needs: No Hearing needs: No Vision needs: No Meds Allergies Allergy/AdvReac Type Severity Reaction Status Date / Time No Known Allergies (No Known Allergy Verified 03/07/25 16:58 Allergies*) Active Medications: Current Medications Acetaminophen (Acetaminophen 325 Mg Tablet) 975 mg PO Q6H PRN PRN Reason: Pain, Mild 1-3,fever,headache Calcium Carbonate (Calcium Carbonate 750 Mg Tab.Chew) 750 mg PO Q4H PRN PRN Reason: Heartburn Dextrose (Dextrose 50 % 25 Gm/50 Ml Syringe) 25 gm IVPUSH Q15M PRN; Protocol PRN Reason: per Hypoglycemia Standing Ord. Enoxaparin Sodium (Enoxaparin Sodium 40 Mg/0.4 Ml Syringe) 40 mg SUBCUT Q24H BUSTER Glucose (Glucose Gel 15 Gm Gel..Gram.) 15 gm PO Q15M PRN; Protocol PRN Reason: per Hypoglycemia Standing Ord. Lactated Ringer's (Lr) 1,000 mls @ 999 mls/hr IV .Q1H1M [facility] Stop: 03/07/25 23:45 Last Admin: 03/07/25 22:42 Dose: 999 mls/hr Ceftriaxone Sodium 1 gm/ (Sodium Chloride) 50 mls @ 100 mls/hr IV Q24H [facility] Insulin Human Lispro (Insulin Lispro 100 Unit/Ml 3 Ml Vial) 0 unit SUBCUT QIDACHS [facility]; Protocol Magnesium Hydroxide (Milk Of Magnesia 30 Ml Oral.Susp) 30 ml PO DAILY PRN PRN Reason: Constipation Melatonin (Melatonin 3 Mg Tablet) 6 mg PO BEDTIME PRN PRN Reason: Insomnia Ondansetron HCl (Ondansetron Hcl 4 Mg/2 Ml Vial) 4 mg IVPUSH Q8H PRN PRN Reason: Nausea and Vomiting Oxycodone HCl (Oxycodone Hcl Immed Release 5 Mg Tablet) 5 mg PO Q6H PRN PRN Reason: Pain, Severe (Pain Scale 7-10) Sodium Chloride (0.9 % Sodium Chloride Flush 3 Ml Syringe) 3 ml IVFLUSH QSHIFT [facility] Tramadol HCl (Tramadol Hcl 50 Mg Tablet) 50 mg PO Q6H PRN PRN Reason: Pain, Moderate(Pain Scale 4-6) Home Medications ?Medication ?Instructions ?Recorded ?Confirmed ?Last Taken ?Type dulaglutide 1.5 mg/0.5 mL 1.5 mg subcut TH 12/12/24 02/19/25 02/08/25 History subcutaneous pen injector amlodipine 2.5 mg tablet 5 mg PO DAILY 12/26/24 02/19/25 02/13/25 History metformin 500 mg tablet 500 mg PO DAILY 02/14/25 02/19/25 Unknown History Physical Exam Vital Signs and Narrative: Vital Signs: Last Vital Signs Temp 98.0 F 03/07/25 20:45 Pulse 86 03/07/25 20:45 Resp 14 03/07/25 20:45 BP 128/55 L 03/07/25 20:45 Pulse Ox 97 03/07/25 20:45 O2 Del Method Room Air 03/07/25 20:45 BMI result Body Mass Index 34.2 General: AOx3, no acute distress, seen with electronics inspector but able to speak [place] throughout interview without difficulty Resp: CTA bilaterally CVS: S1, S2, RRR GI: +BS, NT, no distention. Left CVA tenderness. No significant bruising of left side Skin: Warm, dry Neuro: Cranial nerves II-XII grossly intact bilaterally. Motor grossly intact bilaterally. facial droop, present from previous stroke Extremities: No pitting edema Psych: Appropriate affect Const: General: No confusion Orientation/consciousness: No confusion Neuro: General: No confusion Results Labs 03/07/25 18:42 03/07/25 17:36 Labs: Laboratory Results - last 24 hr 03/07/25 03/07/25 03/07/25 17:36 18:42 20:09 MCV 87.8 MCH 28.4 MCHC 32.3 RDW 14.8 Plt Count 197 D MPV 10.4 Immature Gran % (Auto) Cancelled Neut % (Auto) Cancelled Lymph % (Auto) Cancelled [place] % (Auto) Cancelled Eos % (Auto) Cancelled Baso % (Auto) Cancelled Lymph # (Auto) Cancelled [place] # (Auto) Cancelled Eos # (Auto) Cancelled Baso # (Auto) Cancelled Abs Immat Gran (auto) Cancelled Absolute Neuts (auto) Cancelled Absolute Nucleated RBC 0.000 Nucleated RBC % (auto) 0.0 Neutrophils % (Manual) 81 H Band Neutrophils % 12 H Lymphocytes % (Manual) 3 L Monocytes % (Manual) 4 Abs Neuts (Manual) 18.9 H Lymphocytes # (Manual) 0.6 L Monocytes # (Manual) 0.8 Toxic Vacuolation PRESENT Platelet Estimate NORMAL Plt Morphology Comment NORMAL RBC Morphology NORMAL Schistocytes 1+ (0-2) Smear Tech's Comments VERIFIED Anion Gap 13 Estim Creat Clear Calc 75.5 Estimated GFR > 60 POC Glucose 145 H Random Glucose 138 H Calcium 9.0 Total Bilirubin 0.7 AST 22 ALT 15 Alkaline Phosphatase 85 Troponin I High Sens < 2.7 Total Protein 7.7 Albumin 3.6 Urine Color Urine Appearance Urine pH Ur Specific [place] Urine Protein Urine Glucose (UA) Urine Ketones Urine Blood Urine Nitrite Ur Leukocyte Esterase Urine RBC Urine WBC Ur Squamous Epith Cells Urine Bacteria Hyaline Casts 03/07/25 20:30 MCV MCH MCHC RDW Plt Count MPV Immature Gran % (Auto) Neut % (Auto) Lymph % (Auto) [place] % (Auto) Eos % (Auto) Baso % (Auto) Lymph # (Auto) [place] # (Auto) Eos # (Auto) Baso # (Auto) Abs Immat Gran (auto) Absolute Neuts (auto) Absolute Nucleated RBC Nucleated RBC % (auto) Neutrophils % (Manual) Band Neutrophils % Lymphocytes % (Manual) Monocytes % (Manual) Abs Neuts (Manual) Lymphocytes # (Manual) Monocytes # (Manual) Toxic Vacuolation Platelet Estimate Plt Morphology Comment RBC Morphology Schistocytes Smear Tech's Comments Anion Gap Estim Creat Clear Calc Estimated GFR POC Glucose Random Glucose Calcium Total Bilirubin AST ALT Alkaline Phosphatase Troponin I High Sens Total Protein Albumin Urine Color Yellow Urine Appearance Cloudy Urine pH 7.0 Ur Specific [place] 1.015 Urine Protein 100 (2+) H Urine Glucose (UA) Negative Urine Ketones Negative Urine Blood Small (1+) H Urine Nitrite Negative Ur Leukocyte Esterase Large (3+) H Urine RBC 11-20 H Urine WBC >50 H Ur Squamous Epith Cells 0-2 Urine Bacteria 4+ Hyaline Casts 0-2 Assessment and Plan (1) Syncope: Status: Acute (2) Pyelonephritis of left kidney: Status: Acute (3) Class 2 obesity: Status: Acute Plan Patient is a 59-year-old female with a past medical history significant for history CVA with hemiparesis, type 2 diabetes, GERD, PATRICK, asthma, hypertension and hyperlipidemia, who presented to the ED due to a syncopal episode with fall as well as persistent dysuria. syncope - echo - orthostatics - monitor on tele - cardiology consult persistent L pyelonephritis - urine culture pending, previous klebsiella may-sensitive - ceftriaxone pending culture - ID consult - monitor CBC and BMP T2DM - sliding scale insulin - diabetic diet - hold metformin HTN - normotensive, hold home therapies HLD - statin and ezetimibe hx CVA, L hemiparesis - ASA and statin DNR/DNI, pt states she has MOLST at home. previously was DNI now DNR/DNI. discussed in depth with appliance parts counter clerk present VTE prophy: Lovenox Patient with syncopal episode complicated by left-sided pyelonephritis with failed outpatient treatment, requiring admission for at least 2 midnight stay for further evaluation, IV antibiotics and monitoring. Quality Stroke Does the patient have a stroke diagnosis?: No VTE Prior VTE?: No VTE Risk Level:: Medical - moderate - high VTE Device Contraindication: Treatment Not Indicated VTE Drug Contraindication: N/A - Med Ordered
[2025-03-08] VITALS (11 sets, daily range): BP systolic 115–168; BP diastolic 60–76; PULSE 83–104; RESP 17–20; TEMP 36.5–38; O2SAT 89–98; BMI 31.1
[2025-03-08] MEDS: oxyCODONE HCl Immed Release 5 MG TABLET PO ×3 (00:16→19:36)
--- NOTE | 2025-03-08 00:21 | PC.NURSE ---
Took over care from RN Paula, reposition pt, fluid still running from prior shift, Medicated per mar.
--- NOTE | 2025-03-08 00:22 | HO.NURTONUR ---
Took over care at 23:00 from RN Paula, pt repositioned, medicated per mar, fluids still infusing from prior shift.
[2025-03-08 06:48] LABS: MANUAL DIFF FLAG NO
[2025-03-08 06:50] LABS: Hematocrit 32.6 % (37.0-47.0); Hemoglobin 10.7 g/dl (12.0-16.0); Imm Gran Abs Auto 0.21 X10*3/uL (0.00-0.03); Imm Gran Pct Auto 1.0 % (0.0-0.4); Lymphocytes Absolute Auto 0.4 X10*3/uL (1.2-4.9); Mean Corpuscular HGB Conc 32.8 g/dl (31.0-35.0); Mean Corpuscular Hemoglobin 28.9 pg (27.0-33.0); Mean Corpuscular Volume 88.1 fL (80.0-98.0); NRBC Abs Auto 0.000 X10*3/uL (0.0-0.012); NRBC Pct Auto 0.0 /100WBC (0.0-0.2); Platelet Count 155 X10*3/uL (160-400); Red Blood Count 3.70 X10*6/uL (4.20-5.50); White Blood Count 20.4 X10*3/uL (4.8-10.8)
[2025-03-08 07:00] LABS: Glucose, Whole Blood 157 mg/dL (60-115)
--- NOTE | 2025-03-08 07:00 | CA_ITS ---
Transthoracic Echocardiogram Patient (Last, First, Middle): Marisol Newton A Gender: Female Date of : 1965 Age: 59 Procedure Date: 03/08/2025 Procedure Type: Transthoracic Echocardiogram Location: [facility] [place] Height: 152.4 cm Weight: 72.12 kg BSA: 1.69 m2 Heart Rate: 88 bpm BP: 122 / 66 mmHg Voltmeter Operator: SB Referring MD: Xin Olivarez PA-C Symptoms: syncope Study Quality: Adequate w contrast ECG Rhythm: Sinus Conclusions: - Normal left ventricular size and systolic function. There is normal left ventricular wall thickness. The visually estimated ejection fraction is between 55-60%. - E/E prime ratio is between 8 and 15 consistent with indeterminate filling pressures. - The basal inferior segment is akinetic. - Normal right ventricular cavity size and systolic function. Findings Procedure Information Contrast agent, definity, is being given per protocol without apparent complications. Left Ventricle Normal left ventricular size and systolic function. There is normal left ventricular wall thickness. The visually estimated ejection fraction is between 55-60%. There is evidence of regional wall motion abnormalities. Abnormal diastolic function is noted. Spectral Doppler is indicative of an impaired relaxation filling pattern. E/E prime ratio is between 8 and 15 consistent with indeterminate filling pressures. Wall Motion Rest Echo Findings The basal inferior segment is akinetic. Right Ventricle Normal right ventricular cavity size and systolic function. Atria The left atrium is normal in size. The right atrium is normal in size. Aortic Valve Normal aortic valve structure and function. Mitral Valve The mitral valve appears normal. There is trace mitral valve regurgitation. There is no mitral valve stenosis. Pulmonic Valve The pulmonic valve is normal. There is no pulmonic valve regurgitation. Tricuspid Valve Normal tricuspid valve structure. There is no tricuspid valve regurgitation. Great Vessels All visible segments of the aorta are normal in size. Pericardium/Pleural There is no evidence of pericardial effusion. Prior Study Comparison No significant change compared to prior study dated: 12/23/2021. Measurements 2D Linear Measurements IVSd: 1.12 0.6-0.9/0.6-1.0 cm LVIDd: 4.52 3.9-5.3/4.2-5.9 cm LVIDd Index: 2.67 2.4-3.2/2.2-3.1 cm/m2 LVIDs: 3.18 2.0-3.6 cm LVPWd: 0.67 0.7-1.1 cm LA Diam: 3.60 2.7-3.8/3.0-4.0 cm LAIDs Index: 2.13 1.5-2.3 cm/m2 LV Mass: 165.62 67-162/88-224 g LV Mass Index: 98.00 43-95/49-115 g/m2 LVOT Diam: 2.00 3.0+(-)1.3 cm 2D Systolic Function EF 4C: 47.70 >55% EF 2C: 51.90 >55% EF BiP: 51.00 >55% Mitral Valve MV Pk E: 0.77 MV PK A: 0.95 MV Decel Time: 140.00 E/A: 0.80 E'Lateral: 8.27 E'Medial: 6.20 E/E' Med: 12.40 E/E' Lat: 9.30 PHT: 41.00 MVA PHT: 5.37 Decel Queens: 5.51 Aortic Valve AoV Pk Sacha: 1.17 AoV Mn Sacha: 0.82 AoV VTI: 0.23 AoV Pk Grad: 5.00 Aov Mn Grad: 3.00 KRUPA Cont.VTI: 2.50 LVOT LVOT Pk Sacha: 0.89 LVOT Mn Sacha: 0.63 LVOT VTI: 0.18 LVOT Pk Grad: 3.00 LVOT Mn Grad: 2.00 LVOT Diam: 2.00 LVOT Area: 3.14 Diastolic Function MV Pk E: 0.77 MV Pk A: 0.95 E/A: 0.80 E'Medial: 6.20 E/E' Med: 12.40 E' Laterial: 8.27 E/E' Lat: 9.30 Right Ventricle TAPSE (mm): 23.50 TVS' Sacha: 12.10 Tricuspid Valve RA Press: 8.00 Great Vessels Aorta Sinus of Valsalva: 3.10 2.0-3.5 cm Ao Asc: 3.30 2.1-3.4 cm Pulmonary Valve PV Pk Sacha: 1.10 Peak PV Grad: 5.00 Updated in Other Vendor System with Status of Final Poncho Nieto MD electronically signed on 03/10/2025 3:28:01 PM with status of Final
[2025-03-08 07:06] LABS: Anion Gap 12 (12-20); Blood Urea Nitrogen 18 mg/dL (9-16); Calcium 8.4 mg/dL (8.4-10.2); Carbon Dioxide 26 mmol/L (22-29); Chloride 106 mmol/L (96-108); Creatinine Clr Calc Pharmacy 63.2; Estimated Glomerular Filt Rate > 60; Magnesium 1.9 mg/dL (1.6-2.6); Potassium 4.1 mmol/L (3.3-5.1); Sodium 140 mmol/L (135-145)
[2025-03-08] MEDS: Flu Vacc TS2025-26(6mo up)/PF 0.5 ML SYRINGE IM (09:05)
[2025-03-08] MEDS: 0.9 % Sodium Chloride Flush 3 ML SYRINGE IVFLUSH ×3 (09:05→21:36)
--- NOTE | 2025-03-08 09:19 | MHC.CM.PN ---
CM met with Patient at bedside and addressed IMM with her, providing Patient with the original and a copy has been placed on the chart. 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 CM has initiated and will follow for dc planning. PCP is Dr. María Cooper and Sister/HCP/Ritika will transport at dc.
--- NOTE | 2025-03-08 10:29 | PHA.MEDREC ---
Pharmacy Consult ? Medication Reconciliation Pharmacy has completed the medication reconciliation.Med rec complete, spoke to patient, compared with pharmacy claim history and reviewed recent discharge instructions. Patient is not a great historian and doesn't remember everything. We went over together her most recent medications and she confirmed what she could.
[2025-03-08 10:54] LABS: Glucose, Whole Blood 136 mg/dL (60-115)
--- NOTE | 2025-03-08 11:00 | PM.CNCAR ---
History of Present Illness History of Present Illness Date of Service: 03/08/25 Requesting physician: Louis Walsh Chief complaint: syncope, pyelonephritis Narrative: 59-year-old lady with previous history of stroke presenting with syncope. She has significant dysuria in while trying to stand felt very dizzy and passed out. She said she was taking her sugar is low but her sugar was actually 132. She has been found to have leukocytosis and evidence of pyelonephritis and some concern for diverticulitis also. She is on IV antibiotics. She is denying any chest discomfort shortness of breath. She previously had ECHO abnormalities in [address] Garcia and there was planned to do stress testing on her but it appears she did not do any testing. This can be dealt with as outpatient. Overall she is asymptomatic currently. [facility] Past Medical History Medical History History of adenomatous polyp of colon Iron deficiency anemia Hx of cancer of uterus Diabetes mellitus with retinopathy History of CVA with residual deficit Atherosclerotic cardiovascular disease Intracranial atherosclerosis Normocytic normochromic anemia Cancer History of degenerative joint disease GERD (gastroesophageal reflux disease) Sleep apnea Asthma Depression Vitamin D deficiency Essential hypertension Dyslipidemia Type 2 diabetes mellitus without complication, without long-term current use of insulin Family History Family History Father Cancer Mother Cancer Myocardial infarction Family/Other Diabetes Surgical History Surgical History Hx of hand surgery History of carpal tunnel release Hx of endoscopy Hx of colonoscopy Hx of cholecystectomy History of total abdominal hysterectomy Social History Social History Household Members: None Housing: Apartment Do you presently have visiting nurse or other home services: Yes Alcohol intake: never Patient Tobacco Use Status: Never used Tobacco e-Cigarette/Vaping Use: Never Used Second Hand Smoke Exposure: No Advance Directives Date on File: 01/20/21 service: No Current occupational status: disabled Current occupation: rt handed Cognitive needs: No Hearing needs: No Vision needs: No Meds Allergies Allergy/AdvReac Type Severity Reaction Status Date / Time No Known Allergies (No Known Allergy Verified 03/07/25 16:58 Allergies*) Active Medications: Current Medications Acetaminophen (Acetaminophen 325 Mg Tablet) 975 mg PO Q6H PRN PRN Reason: Pain, Mild 1-3,fever,headache Amlodipine Besylate (Amlodipine Besylate 5 Mg Tablet) 5 mg PO DAILY [facility]; Protocol Atorvastatin Calcium (Atorvastatin Calcium 80 Mg Tablet) 80 mg PO BEDTIME [facility] Brimonidine Tartrate (Brimonidine Tartrate 0.2% Oph 5 Ml Bottle) 1 drop EYE-BOTH BID [facility] Calcium Carbonate (Calcium Carbonate 750 Mg Tab.Chew) 750 mg PO Q4H PRN PRN Reason: Heartburn Dextrose (Dextrose 50 % 25 Gm/50 Ml Syringe) 25 gm IVPUSH Q15M PRN; Protocol PRN Reason: per Hypoglycemia Standing Ord. Ezetimibe (Ezetimibe 10 Mg Tablet) 10 mg PO DAILY [facility] Enoxaparin Sodium (Enoxaparin Sodium 40 Mg/0.4 Ml Syringe) 40 mg SUBCUT Q24H [facility] Last Admin: 03/08/25 00:15 Dose: 40 mg Ergocalciferol (Ergocalciferol (Vitamin D2) 1,250 Mcg Capsule) 1,250 mcg PO MO@0900 [facility] Glucose (Glucose Gel 15 Gm Gel..Gram.) 15 gm PO Q15M PRN; Protocol PRN Reason: per Hypoglycemia Standing Ord. Ceftriaxone Sodium 1 gm/ (Sodium Chloride) 50 mls @ 100 mls/hr IV Q24H [facility] Insulin Human Lispro (Insulin Lispro 100 Unit/Ml 3 Ml Vial) 0 unit SUBCUT QIDACHS [facility]; Protocol Last Admin: 03/08/25 09:04 Dose: 2 unit Magnesium Hydroxide (Milk Of Magnesia 30 Ml Oral.Susp) 30 ml PO DAILY PRN PRN Reason: Constipation Meclizine HCl (Meclizine Hcl 12.5 Mg Tablet) 12.5 mg PO TID PRN PRN Reason: Vertigo Melatonin (Melatonin 3 Mg Tablet) 6 mg PO BEDTIME PRN PRN Reason: Insomnia Non-Formulary Medication (Ciclopirox) 1 appl TOPICAL BID [facility] Ondansetron HCl (Ondansetron Hcl 4 Mg/2 Ml Vial) 4 mg IVPUSH Q8H PRN PRN Reason: Nausea and Vomiting Oxycodone HCl (Oxycodone Hcl Immed Release 5 Mg Tablet) 5 mg PO Q6H PRN PRN Reason: Pain, Severe (Pain Scale 7-10) Last Admin: 03/08/25 09:04 Dose: 5 mg Sodium Chloride (0.9 % Sodium Chloride Flush 3 Ml Syringe) 3 ml IVFLUSH QSHIFT [facility] Last Admin: 03/08/25 09:05 Dose: 3 ml Tramadol HCl (Tramadol Hcl 50 Mg Tablet) 50 mg PO Q6H PRN PRN Reason: Pain, Moderate(Pain Scale 4-6) Home Medications ?Medication ?Instructions ?Recorded ?Confirmed ?Last Taken ?Type dulaglutide 1.5 mg/0.5 mL 1.5 mg subcut TH 12/12/24 03/08/25 03/01/25 History subcutaneous pen injector amlodipine 5 mg tablet 5 mg PO DAILY 03/08/25 03/08/25 Unknown History brimonidine 0.2 % eye drops 1 drp ophthalmic (eye) BID 03/08/25 03/08/25 Unknown History cholecalciferol (vitamin D3) 1,250 1,250 mcg PO MO@0900 03/08/25 03/08/25 Unknown History mcg (50,000 unit) capsule ciclopirox 0.77 % topical 1 appl topical BID 03/08/25 03/08/25 Unknown History suspension terbinafine HCl 1 % topical cream 1 appl topical BID 03/08/25 03/08/25 Unknown History (Athlete's Foot (terbinafine)) Physical Exam Vital Signs: Vital Signs: Last Vital Signs Temp 99.1 F 03/08/25 07:38 Pulse 91 03/08/25 08:07 Resp 18 03/08/25 07:38 BP 115/62 03/08/25 08:07 Pulse Ox 92 03/08/25 07:38 O2 Del Method Room Air 03/08/25 07:38 BMI result Body Mass Index 31.1 GENERAL APPEARANCE: in no acute distress, pleasant. NECK: no carotid bruit, no jugular venous distention. SKIN: no suspicious lesions, warm and dry. HEART: no murmurs, regular rate and rhythm. LUNGS: clear to auscultation bilaterally. ABDOMEN: soft, nontender. EXTREMITIES: no edema. PERIPHERAL PULSES: equal. NEUROLOGIC: Left-sided facial droop, left-sided weakness. Objective Labs and Meds 03/08/25 06:26 03/08/25 06:26 Lab results: Laboratory Results - last 24 hr 03/07/25 03/07/25 03/07/25 17:36 18:42 20:09 WBC 20.3 H RBC 4.09 L D Hgb 11.6 L D Hct 35.9 L D MCV 87.8 MCH 28.4 MCHC 32.3 RDW 14.8 Plt Count 197 D MPV 10.4 Immature Gran % (Auto) Cancelled Neut % (Auto) Cancelled Lymph % (Auto) Cancelled [place] % (Auto) Cancelled Eos % (Auto) Cancelled Baso % (Auto) Cancelled Lymph # (Auto) Cancelled [place] # (Auto) Cancelled Eos # (Auto) Cancelled Baso # (Auto) Cancelled Abs Immat Gran (auto) Cancelled Absolute Neuts (auto) Cancelled Absolute Nucleated RBC 0.000 Nucleated RBC % (auto) 0.0 Neutrophils % (Manual) 81 H Band Neutrophils % 12 H Lymphocytes % (Manual) 3 L Monocytes % (Manual) 4 Abs Neuts (Manual) 18.9 H Lymphocytes # (Manual) 0.6 L Monocytes # (Manual) 0.8 Toxic Vacuolation PRESENT Platelet Estimate NORMAL Plt Morphology Comment NORMAL RBC Morphology NORMAL Schistocytes 1+ (0-2) Smear Tech's Comments VERIFIED Sodium 143 Potassium 3.6 Chloride 107 Carbon Dioxide 27 Anion Gap 13 BUN 18 H Creatinine 0.73 Estim Creat Clear Calc 75.5 Estimated GFR > 60 POC Glucose 145 H Random Glucose 138 H Lactic Acid Calcium 9.0 Magnesium Total Bilirubin 0.7 AST 22 ALT 15 Alkaline Phosphatase 85 Troponin I High Sens < 2.7 Total Protein 7.7 Albumin 3.6 Urine Color Urine Appearance Urine pH Ur Specific [place] Urine Protein Urine Glucose (UA) Urine Ketones Urine Blood Urine Nitrite Ur Leukocyte Esterase Urine RBC Urine WBC Ur Squamous Epith Cells Urine Bacteria Hyaline Casts 03/07/25 03/07/25 03/08/25 20:30 23:13 06:26 WBC 20.4 H RBC 3.70 L Hgb 10.7 L Hct 32.6 L MCV 88.1 MCH 28.9 MCHC 32.8 RDW 15.0 Plt Count 155 L MPV 10.5 Immature Gran % (Auto) 1.0 H Neut % (Auto) 89.9 H Lymph % (Auto) 2.2 L [place] % (Auto) 6.1 Eos % (Auto) 0.6 Baso % (Auto) 0.2 Lymph # (Auto) 0.4 L [place] # (Auto) 1.2 Eos # (Auto) 0.1 Baso # (Auto) 0.0 Abs Immat Gran (auto) 0.21 H Absolute Neuts (auto) 18.4 H Absolute Nucleated RBC 0.000 Nucleated RBC % (auto) 0.0 Neutrophils % (Manual) Band Neutrophils % Lymphocytes % (Manual) Monocytes % (Manual) Abs Neuts (Manual) Lymphocytes # (Manual) Monocytes # (Manual) Toxic Vacuolation Platelet Estimate Plt Morphology Comment RBC Morphology Schistocytes Smear Tech's Comments Sodium 140 Potassium 4.1 Chloride 106 Carbon Dioxide 26 Anion Gap 12 BUN 18 H Creatinine 0.83 Estim Creat Clear Calc 63.2 Estimated GFR > 60 POC Glucose Random Glucose 154 H Lactic Acid 1.0 Calcium 8.4 D Magnesium 1.9 Total Bilirubin AST ALT Alkaline Phosphatase Troponin I High Sens Total Protein Albumin Urine Color Yellow Urine Appearance Cloudy Urine pH 7.0 Ur Specific [place] 1.015 Urine Protein 100 (2+) H Urine Glucose (UA) Negative Urine Ketones Negative Urine Blood Small (1+) H Urine Nitrite Negative Ur Leukocyte Esterase Large (3+) H Urine RBC 11-20 H Urine WBC >50 H Ur Squamous Epith Cells 0-2 Urine Bacteria 4+ Hyaline Casts 0-2 03/08/25 03/08/25 06:53 10:48 WBC RBC Hgb Hct MCV MCH MCHC RDW Plt Count MPV Immature Gran % (Auto) Neut % (Auto) Lymph % (Auto) [place] % (Auto) Eos % (Auto) Baso % (Auto) Lymph # (Auto) [place] # (Auto) Eos # (Auto) Baso # (Auto) Abs Immat Gran (auto) Absolute Neuts (auto) Absolute Nucleated RBC Nucleated RBC % (auto) Neutrophils % (Manual) Band Neutrophils % Lymphocytes % (Manual) Monocytes % (Manual) Abs Neuts (Manual) Lymphocytes # (Manual) Monocytes # (Manual) Toxic Vacuolation Platelet Estimate Plt Morphology Comment RBC Morphology Schistocytes Smear Tech's Comments Sodium Potassium Chloride Carbon Dioxide Anion Gap BUN Creatinine Estim Creat Clear Calc Estimated GFR POC Glucose 157 H 136 H Random Glucose Lactic Acid Calcium Magnesium Total Bilirubin AST ALT Alkaline Phosphatase Troponin I High Sens Total Protein Albumin Urine Color Urine Appearance Urine pH Ur Specific [place] Urine Protein Urine Glucose (UA) Urine Ketones Urine Blood Urine Nitrite Ur Leukocyte Esterase Urine RBC Urine WBC Ur Squamous Epith Cells Urine Bacteria Hyaline Casts Assessment and Plan (1) Syncope: Status: Acute Plan Syncope in his 59-year-old lady presenting with pyelonephritis and diverticulitis. She is on IV antibiotics currently. Etiology is likely related to sepsis and hypotension. Blood pressure currently are stable. Hold the antihypertensive medications. Gentle hydration. Antibiotics as indicated. She can follow up with Dr. Garcia after discharge. Signing off. Procedures Date of Service Date of Service: 03/08/25
--- NOTE | 2025-03-08 13:42 | PM.IMHP ---
History of Present Illness Date of Service: 03/08/25 [facility] Medical History History of adenomatous polyp of colon Iron deficiency anemia Hx of cancer of uterus Diabetes mellitus with retinopathy History of CVA with residual deficit Atherosclerotic cardiovascular disease Intracranial atherosclerosis Normocytic normochromic anemia Cancer History of degenerative joint disease GERD (gastroesophageal reflux disease) Sleep apnea Asthma Depression Vitamin D deficiency Essential hypertension Dyslipidemia Type 2 diabetes mellitus without complication, without long-term current use of insulin Functional capacity: independent ambulation Family History Father Cancer Mother Cancer Myocardial infarction Family/Other Diabetes Surgical History Hx of hand surgery History of carpal tunnel release Hx of endoscopy Hx of colonoscopy Hx of cholecystectomy History of total abdominal hysterectomy Social History Household Members: None Housing: Apartment Do you presently have visiting nurse or other home services: Yes Alcohol intake: never Patient Tobacco Use Status: Never used Tobacco e-Cigarette/Vaping Use: Never Used Second Hand Smoke Exposure: No Advance Directives Date on File: 01/20/21 service: No Current occupational status: disabled Current occupation: rt handed Cognitive needs: No Hearing needs: No Vision needs: No Meds Allergies Allergy/AdvReac Type Severity Reaction Status Date / Time No Known Allergies (No Known Allergy Verified 03/07/25 16:58 Allergies*) Active Medications: Current Medications Acetaminophen (Acetaminophen 325 Mg Tablet) 975 mg PO Q6H PRN PRN Reason: Pain, Mild 1-3,fever,headache Amlodipine Besylate (Amlodipine Besylate 5 Mg Tablet) 5 mg PO DAILY [facility]; Protocol Atorvastatin Calcium (Atorvastatin Calcium 80 Mg Tablet) 80 mg PO BEDTIME [facility] Brimonidine Tartrate (Brimonidine Tartrate 0.2% Oph 5 Ml Bottle) 1 drop EYE-BOTH BID [facility] Calcium Carbonate (Calcium Carbonate 750 Mg Tab.Chew) 750 mg PO Q4H PRN PRN Reason: Heartburn Dextrose (Dextrose 50 % 25 Gm/50 Ml Syringe) 25 gm IVPUSH Q15M PRN; Protocol PRN Reason: per Hypoglycemia Standing Ord. Ezetimibe (Ezetimibe 10 Mg Tablet) 10 mg PO DAILY [facility] Enoxaparin Sodium (Enoxaparin Sodium 40 Mg/0.4 Ml Syringe) 40 mg SUBCUT Q24H [facility] Last Admin: 03/08/25 00:15 Dose: 40 mg Ergocalciferol (Ergocalciferol (Vitamin D2) 1,250 Mcg Capsule) 1,250 mcg PO MO@0900 [facility] Glucose (Glucose Gel 15 Gm Gel..Gram.) 15 gm PO Q15M PRN; Protocol PRN Reason: per Hypoglycemia Standing Ord. Ceftriaxone Sodium 1 gm/ (Sodium Chloride) 50 mls @ 100 mls/hr IV Q24H [facility] Insulin Human Lispro (Insulin Lispro 100 Unit/Ml 3 Ml Vial) 0 unit SUBCUT QIDACHS [facility]; Protocol Last Admin: 03/08/25 12:55 Dose: Not Given Magnesium Hydroxide (Milk Of Magnesia 30 Ml Oral.Susp) 30 ml PO DAILY PRN PRN Reason: Constipation Meclizine HCl (Meclizine Hcl 12.5 Mg Tablet) 12.5 mg PO TID PRN PRN Reason: Vertigo Melatonin (Melatonin 3 Mg Tablet) 6 mg PO BEDTIME PRN PRN Reason: Insomnia Non-Formulary Medication (Ciclopirox) 1 appl TOPICAL BID [facility] Ondansetron HCl (Ondansetron Hcl 4 Mg/2 Ml Vial) 4 mg IVPUSH Q8H PRN PRN Reason: Nausea and Vomiting Oxycodone HCl (Oxycodone Hcl Immed Release 5 Mg Tablet) 5 mg PO Q6H PRN PRN Reason: Pain, Severe (Pain Scale 7-10) Last Admin: 03/08/25 09:04 Dose: 5 mg Sodium Chloride (0.9 % Sodium Chloride Flush 3 Ml Syringe) 3 ml IVFLUSH QSHIFT [facility] Last Admin: 03/08/25 09:05 Dose: 3 ml Tramadol HCl (Tramadol Hcl 50 Mg Tablet) 50 mg PO Q6H PRN PRN Reason: Pain, Moderate(Pain Scale 4-6) Home Medications ?Medication ?Instructions ?Recorded ?Confirmed ?Last Taken ?Type dulaglutide 1.5 mg/0.5 mL 1.5 mg subcut 12/12/24 03/08/25 03/01/25 History subcutaneous pen injector amlodipine 5 mg tablet 5 mg PO DAILY 03/08/25 03/08/25 Unknown History brimonidine 0.2 % eye drops 1 drp ophthalmic (eye) BID 03/08/25 03/08/25 Unknown History cholecalciferol (vitamin D3) 1,250 1,250 mcg PO MO@0900 03/08/25 03/08/25 Unknown History mcg (50,000 unit) capsule ciclopirox 0.77 % topical 1 appl topical BID 03/08/25 03/08/25 Unknown History suspension terbinafine HCl 1 % topical cream 1 appl topical BID 03/08/25 03/08/25 Unknown History (Athlete's Foot (terbinafine)) Physical Exam Vital Signs and Narrative: Vital Signs: Last Vital Signs Temp 98.5 F 03/08/25 11:11 Pulse 96 03/08/25 11:11 Resp 18 03/08/25 11:11 BP 157/71 H 03/08/25 11:11 Pulse Ox 97 03/08/25 11:11 O2 Del Method Room Air 03/08/25 11:11 BMI result Body Mass Index 31.1 Results Labs 03/08/25 06:26 03/08/25 06:26 Labs: Laboratory Results - last 24 hr 03/07/25 03/07/25 03/07/25 17:36 18:42 20:09 MCV 87.8 MCH 28.4 MCHC 32.3 RDW 14.8 Plt Count 197 D MPV 10.4 Immature Gran % (Auto) Cancelled Neut % (Auto) Cancelled Lymph % (Auto) Cancelled [place] % (Auto) Cancelled Eos % (Auto) Cancelled Baso % (Auto) Cancelled Lymph # (Auto) Cancelled [place] # (Auto) Cancelled Eos # (Auto) Cancelled Baso # (Auto) Cancelled Abs Immat Gran (auto) Cancelled Absolute Neuts (auto) Cancelled Absolute Nucleated RBC 0.000 Nucleated RBC % (auto) 0.0 Neutrophils % (Manual) 81 H Band Neutrophils % 12 H Lymphocytes % (Manual) 3 L Monocytes % (Manual) 4 Abs Neuts (Manual) 18.9 H Lymphocytes # (Manual) 0.6 L Monocytes # (Manual) 0.8 Toxic Vacuolation PRESENT Platelet Estimate NORMAL Plt Morphology Comment NORMAL RBC Morphology NORMAL Schistocytes 1+ (0-2) Smear Tech's Comments VERIFIED Anion Gap 13 Estim Creat Clear Calc 75.5 Estimated GFR > 60 POC Glucose 145 H Random Glucose 138 H Lactic Acid Calcium 9.0 Magnesium Total Bilirubin 0.7 AST 22 ALT 15 Alkaline Phosphatase 85 Troponin I High Sens < 2.7 Total Protein 7.7 Albumin 3.6 Urine Color Urine Appearance Urine pH Ur Specific [place] Urine Protein Urine Glucose (UA) Urine Ketones Urine Blood Urine Nitrite Ur Leukocyte Esterase Urine RBC Urine WBC Ur Squamous Epith Cells Urine Bacteria Hyaline Casts 03/07/25 03/07/25 03/08/25 20:30 23:13 06:26 MCV 88.1 MCH 28.9 MCHC 32.8 RDW 15.0 Plt Count 155 L MPV 10.5 Immature Gran % (Auto) 1.0 H Neut % (Auto) 89.9 H Lymph % (Auto) 2.2 L [place] % (Auto) 6.1 Eos % (Auto) 0.6 Baso % (Auto) 0.2 Lymph # (Auto) 0.4 L [place] # (Auto) 1.2 Eos # (Auto) 0.1 Baso # (Auto) 0.0 Abs Immat Gran (auto) 0.21 H Absolute Neuts (auto) 18.4 H Absolute Nucleated RBC 0.000 Nucleated RBC % (auto) 0.0 Neutrophils % (Manual) Band Neutrophils % Lymphocytes % (Manual) Monocytes % (Manual) Abs Neuts (Manual) Lymphocytes # (Manual) Monocytes # (Manual) Toxic Vacuolation Platelet Estimate Plt Morphology Comment RBC Morphology Schistocytes Smear Tech's Comments Anion Gap 12 Estim Creat Clear Calc 63.2 Estimated GFR > 60 POC Glucose Random Glucose 154 H Lactic Acid 1.0 Calcium 8.4 D Magnesium 1.9 Total Bilirubin AST ALT Alkaline Phosphatase Troponin I High Sens Total Protein Albumin Urine Color Yellow Urine Appearance Cloudy Urine pH 7.0 Ur Specific [place] 1.015 Urine Protein 100 (2+) H Urine Glucose (UA) Negative Urine Ketones Negative Urine Blood Small (1+) H Urine Nitrite Negative Ur Leukocyte Esterase Large (3+) H Urine RBC 11-20 H Urine WBC >50 H Ur Squamous Epith Cells 0-2 Urine Bacteria 4+ Hyaline Casts 0-2 03/08/25 03/08/25 06:53 10:48 MCV MCH MCHC RDW Plt Count MPV Immature Gran % (Auto) Neut % (Auto) Lymph % (Auto) [place] % (Auto) Eos % (Auto) Baso % (Auto) Lymph # (Auto) [place] # (Auto) Eos # (Auto) Baso # (Auto) Abs Immat Gran (auto) Absolute Neuts (auto) Absolute Nucleated RBC Nucleated RBC % (auto) Neutrophils % (Manual) Band Neutrophils % Lymphocytes % (Manual) Monocytes % (Manual) Abs Neuts (Manual) Lymphocytes # (Manual) Monocytes # (Manual) Toxic Vacuolation Platelet Estimate Plt Morphology Comment RBC Morphology Schistocytes Smear Tech's Comments Anion Gap Estim Creat Clear Calc Estimated GFR POC Glucose 157 H 136 H Random Glucose Lactic Acid Calcium Magnesium Total Bilirubin AST ALT Alkaline Phosphatase Troponin I High Sens Total Protein Albumin Urine Color Urine Appearance Urine pH Ur Specific [place] Urine Protein Urine Glucose (UA) Urine Ketones Urine Blood Urine Nitrite Ur Leukocyte Esterase Urine RBC Urine WBC Ur Squamous Epith Cells Urine Bacteria Hyaline Casts Quality Stroke Does the patient have a stroke diagnosis?: No VTE Prior VTE?: No VTE Risk Level:: Medical - moderate - high VTE Device Contraindication: Treatment Not Indicated VTE Drug Contraindication: N/A - Med Ordered
--- NOTE | 2025-03-08 13:42 | HO.PM.IMPN ---
Subjective Subjective Date of Service: 03/08/25 Interval History: Patient seen and examined at bedside this morning, patient mentioned that she persists with left-sided pain, on antibiotics for left pyelonephritis. Review of Systems Review of Systems: Yes all other systems are reviewed and are negative Physical Exam Exam: Exam: General: AxOx3, No acute distress Head: AT/NC ENT: Moist mucous membranes Neck: supple CVS; RRR, S1 S2 normal Lungs: Clear bilateral breath sounds, no wheezes or crackles Abd: Soft non tender, non distended Ext: No edema and no calf tenderness MSK: moving all 4 limbs. Left CVA tenderness Skin: No cyanosis or edema Psych: Cooperative with exam Neurology: no focal deficit Vital Signs: Vital Signs: Last Vital Signs Temp 98.5 F 03/08/25 11:11 Pulse 96 03/08/25 11:11 Resp 18 03/08/25 11:11 BP 157/71 H 03/08/25 11:11 Pulse Ox 97 03/08/25 11:11 O2 Del Method Room Air 03/08/25 11:11 BMI result Body Mass Index 31.1 Objective Data Active Medications Acetaminophen (Acetaminophen 325 Mg Tablet) 975 mg PO Q6H PRN PRN Reason: Pain, Mild 1-3,fever,headache Amlodipine Besylate (Amlodipine Besylate 5 Mg Tablet) 5 mg PO DAILY [facility]; Protocol Atorvastatin Calcium (Atorvastatin Calcium 80 Mg Tablet) 80 mg PO BEDTIME [facility] Brimonidine Tartrate (Brimonidine Tartrate 0.2% Oph 5 Ml Bottle) 1 drop EYE-BOTH BID [facility] Calcium Carbonate (Calcium Carbonate 750 Mg Tab.Chew) 750 mg PO Q4H PRN PRN Reason: Heartburn Dextrose (Dextrose 50 % 25 Gm/50 Ml Syringe) 25 gm IVPUSH Q15M PRN; Protocol PRN Reason: per Hypoglycemia Standing Ord. Ezetimibe (Ezetimibe 10 Mg Tablet) 10 mg PO DAILY [facility] Enoxaparin Sodium (Enoxaparin Sodium 40 Mg/0.4 Ml Syringe) 40 mg SUBCUT Q24H [facility] Last Admin: 03/08/25 00:15 Dose: 40 mg Documented By: SARAH Ergocalciferol (Ergocalciferol (Vitamin D2) 1,250 Mcg Capsule) 1,250 mcg PO MO@0900 [facility] Glucose (Glucose Gel 15 Gm Gel..Gram.) 15 gm PO Q15M PRN; Protocol PRN Reason: per Hypoglycemia Standing Ord. Piperacillin Sod/Tazobactam (Sod 4.5 gm/ Sodium Chloride) 100 mls @ 200 mls/hr IV Q8H [facility] Insulin Human Lispro (Insulin Lispro 100 Unit/Ml 3 Ml Vial) 0 unit SUBCUT QIDACHS [facility]; Protocol Last Admin: 03/08/25 12:55 Dose: Not Given Documented By: STARR Non-Admin Reason: No Insulin Coverage Magnesium Hydroxide (Milk Of Magnesia 30 Ml Oral.Susp) 30 ml PO DAILY PRN PRN Reason: Constipation Meclizine HCl (Meclizine Hcl 12.5 Mg Tablet) 12.5 mg PO TID PRN PRN Reason: Vertigo Melatonin (Melatonin 3 Mg Tablet) 6 mg PO BEDTIME PRN PRN Reason: Insomnia Non-Formulary Medication (Ciclopirox) 1 appl TOPICAL BID [facility] Ondansetron HCl (Ondansetron Hcl 4 Mg/2 Ml Vial) 4 mg IVPUSH Q8H PRN PRN Reason: Nausea and Vomiting Oxycodone HCl (Oxycodone Hcl Immed Release 5 Mg Tablet) 5 mg PO Q6H PRN PRN Reason: Pain, Severe (Pain Scale 7-10) Last Admin: 03/08/25 09:04 Dose: 5 mg Documented By: STARR Sodium Chloride (0.9 % Sodium Chloride Flush 3 Ml Syringe) 3 ml IVFLUSH [facility] Last Admin: 03/08/25 09:05 Dose: 3 ml Documented By: STARR Tramadol HCl (Tramadol Hcl 50 Mg Tablet) 50 mg PO Q6H PRN PRN Reason: Pain, Moderate(Pain Scale 4-6) Labs 03/08/25 06:26 03/08/25 06:26 Labs: Laboratory Results - last 24 hr 03/07/25 03/07/25 03/07/25 17:36 18:42 20:09 MCV 87.8 MCH 28.4 MCHC 32.3 RDW 14.8 Plt Count 197 D MPV 10.4 Immature Gran % (Auto) Cancelled Neut % (Auto) Cancelled Lymph % (Auto) Cancelled [place] % (Auto) Cancelled Eos % (Auto) Cancelled Baso % (Auto) Cancelled Lymph # (Auto) Cancelled [place] # (Auto) Cancelled Eos # (Auto) Cancelled Baso # (Auto) Cancelled Abs Immat Gran (auto) Cancelled Absolute Neuts (auto) Cancelled Absolute Nucleated RBC 0.000 Nucleated RBC % (auto) 0.0 Neutrophils % (Manual) 81 H Band Neutrophils % 12 H Lymphocytes % (Manual) 3 L Monocytes % (Manual) 4 Abs Neuts (Manual) 18.9 H Lymphocytes # (Manual) 0.6 L Monocytes # (Manual) 0.8 Toxic Vacuolation PRESENT Platelet Estimate NORMAL Plt Morphology Comment NORMAL RBC Morphology NORMAL Schistocytes 1+ (0-2) Smear Tech's Comments VERIFIED Anion Gap 13 Estim Creat Clear Calc 75.5 Estimated GFR > 60 POC Glucose 145 H Random Glucose 138 H Lactic Acid Calcium 9.0 Magnesium Total Bilirubin 0.7 AST 22 ALT 15 Alkaline Phosphatase 85 Troponin I High Sens < 2.7 Total Protein 7.7 Albumin 3.6 Urine Color Urine Appearance Urine pH Ur Specific Reserve Urine Protein Urine Glucose (UA) Urine Ketones Urine Blood Urine Nitrite Ur Leukocyte Esterase Urine RBC Urine WBC Ur Squamous Epith Cells Urine Bacteria Hyaline Casts 03/07/25 03/07/25 03/08/25 20:30 23:13 06:26 MCV 88.1 MCH 28.9 MCHC 32.8 RDW 15.0 Plt Count 155 L MPV 10.5 Immature Gran % (Auto) 1.0 H Neut % (Auto) 89.9 H Lymph % (Auto) 2.2 L [place] % (Auto) 6.1 Eos % (Auto) 0.6 Baso % (Auto) 0.2 Lymph # (Auto) 0.4 L [place] # (Auto) 1.2 Eos # (Auto) 0.1 Baso # (Auto) 0.0 Abs Immat Gran (auto) 0.21 H Absolute Neuts (auto) 18.4 H Absolute Nucleated RBC 0.000 Nucleated RBC % (auto) 0.0 Neutrophils % (Manual) Band Neutrophils % Lymphocytes % (Manual) Monocytes % (Manual) Abs Neuts (Manual) Lymphocytes # (Manual) Monocytes # (Manual) Toxic Vacuolation Platelet Estimate Plt Morphology Comment RBC Morphology Schistocytes Smear Tech's Comments Anion Gap 12 Estim Creat Clear Calc 63.2 Estimated GFR > 60 POC Glucose Random Glucose 154 H Lactic Acid 1.0 Calcium 8.4 D Magnesium 1.9 Total Bilirubin AST ALT Alkaline Phosphatase Troponin I High Sens Total Protein Albumin Urine Color Yellow Urine Appearance Cloudy Urine pH 7.0 Ur Specific [place] 1.015 Urine Protein 100 (2+) H Urine Glucose (UA) Negative Urine Ketones Negative Urine Blood Small (1+) H Urine Nitrite Negative Ur Leukocyte Esterase Large (3+) H Urine RBC 11-20 H Urine WBC >50 H Ur Squamous Epith Cells 0-2 Urine Bacteria 4+ Hyaline Casts 0-2 03/08/25 03/08/25 06:53 10:48 MCV MCH MCHC RDW Plt Count MPV Immature Gran % (Auto) Neut % (Auto) Lymph % (Auto) [place] % (Auto) Eos % (Auto) Baso % (Auto) Lymph # (Auto) [place] # (Auto) Eos # (Auto) Baso # (Auto) Abs Immat Gran (auto) Absolute Neuts (auto) Absolute Nucleated RBC Nucleated RBC % (auto) Neutrophils % (Manual) Band Neutrophils % Lymphocytes % (Manual) Monocytes % (Manual) Abs Neuts (Manual) Lymphocytes # (Manual) Monocytes # (Manual) Toxic Vacuolation Platelet Estimate Plt Morphology Comment RBC Morphology Schistocytes Smear Tech's Comments Anion Gap Estim Creat Clear Calc Estimated GFR POC Glucose 157 H 136 H Random Glucose Lactic Acid Calcium Magnesium Total Bilirubin AST ALT Alkaline Phosphatase Troponin I High Sens Total Protein Albumin Urine Color Urine Appearance Urine pH Ur Specific Reserve Urine Protein Urine Glucose (UA) Urine Ketones Urine Blood Urine Nitrite Ur Leukocyte Esterase Urine RBC Urine WBC Ur Squamous Epith Cells Urine Bacteria Hyaline Casts Assessment and Plan (1) Pyelonephritis of left kidney: Status: Acute (2) Diabetes mellitus with retinopathy: Status: Chronic (3) Essential hypertension: Status: Chronic Plan Patient is a 59-year-old female with a past medical history significant for history CVA with hemiparesis, type 2 diabetes, GERD, PATRICK, asthma, hypertension and hyperlipidemia, who presented to the ED due to a syncopal episode with fall as well as persistent dysuria. syncope, likely related to infectious etiology - echo - orthostatics - monitor on tele - cardiology following Left pyelonephritis - UA reviewed - CT scan reviewed w/ lef t pyelonephritis -Will switch to zosyn given patient failed outpatient ab treatment, will tailor abs based on cultures, to treat for 7-10 days - ID consult - monitor CBC and BMP T2DM - sliding scale insulin - diabetic diet - hold metformin in setting of illness HTN, chronic -will initiate amlodipine 5mg qd, will monitor BP and adjust medication accordingly HLD - statin and ezetimibe hx CVA, L hemiparesis - ASA and statin DVT PPx: Lovenox Code Status: DNR/DNI Total time managing care of this patient today: 55 minutes. Quality Stroke Does the patient have a stroke diagnosis?: No VTE Prior VTE?: No VTE Risk Level:: Medical - moderate - high VTE Device Contraindication: Treatment Not Indicated VTE Drug Contraindication: N/A - Med Ordered
[2025-03-08 16:19] LABS: Glucose, Whole Blood 150 mg/dL (60-115)
[2025-03-08 20:33] LABS: Glucose, Whole Blood 116 mg/dL (60-115)
[2025-03-08] MEDS: Brimonidine Tartrate 0.2% Oph 5 ML BOTTLE 1 DROP EYE-BOTH (21:35)
[2025-03-09] VITALS (7 sets, daily range): BP systolic 99–145; BP diastolic 55–65; PULSE 73–86; RESP 16–20; TEMP 36.3–36.8; O2SAT 86–98
[2025-03-09] MEDS: Milk of Magnesia 30 ML ORAL.SUSP PO (06:37)
[2025-03-09 06:57] LABS: MANUAL DIFF FLAG NO
[2025-03-09 07:04] LABS: Hematocrit 29.5 % (37.0-47.0); Hemoglobin 9.7 g/dl (12.0-16.0); Imm Gran Abs Auto 0.06 X10*3/uL (0.00-0.03); Imm Gran Pct Auto 0.4 % (0.0-0.4); Lymphocytes Absolute Auto 1.1 X10*3/uL (1.2-4.9); Mean Corpuscular HGB Conc 32.9 g/dl (31.0-35.0); Mean Corpuscular Hemoglobin 29.0 pg (27.0-33.0); Mean Corpuscular Volume 88.1 fL (80.0-98.0); NRBC Abs Auto 0.000 X10*3/uL (0.0-0.012); NRBC Pct Auto 0.0 /100WBC (0.0-0.2); Platelet Count 145 X10*3/uL (160-400); Red Blood Count 3.35 X10*6/uL (4.20-5.50); White Blood Count 14.7 X10*3/uL (4.8-10.8)
[2025-03-09 07:20] LABS: Anion Gap 11 (12-20); Blood Urea Nitrogen 18 mg/dL (9-16); Calcium 8.4 mg/dL (8.4-10.2); Carbon Dioxide 25 mmol/L (22-29); Chloride 107 mmol/L (96-108); Creatinine Clr Calc Pharmacy 54.0; Estimated Glomerular Filt Rate 58; Magnesium 2.1 mg/dL (1.6-2.6); Potassium 3.5 mmol/L (3.3-5.1); Sodium 139 mmol/L (135-145)
[2025-03-09 08:25] LABS: Glucose, Whole Blood 160 mg/dL (60-115)
[2025-03-09] MEDS: 0.9 % Sodium Chloride Flush 3 ML SYRINGE IVFLUSH ×2 (08:59→21:17)
[2025-03-09] MEDS: Brimonidine Tartrate 0.2% Oph 5 ML BOTTLE 1 DROP EYE-BOTH ×2 (09:02→21:26)
--- NOTE | 2025-03-09 10:12 | P.CDIM_ITS ---
PROVIDER RESPONSE TEXT: To clarify, the appropriate diagnosis supported by the clinical indicators: Pyelonephritis: acute QUERY TEXT: PHYSICIAN'S DOCUMENTATION REQUEST Date of Query: 03/09/2025 07:34 AM EST Patient Name: Marisol Newton Admit Date: 03/08/2025 Dear Louis Walsh MD, A review of the medical record indicates additional documentation may be needed. Please review below and update the documentation accordingly. Progress note 03/07/25 - Left Pyelonephritis UA reviewed CT scan reviewed w left pyelonephritis. Will switch to Zosyn given patient failed outpatient ab treatment. Please provide further specificity regarding further specificity to the documented Pyelonephritis left kidney and place this diagnosis within the written Plan of the progress note, if agree: Pyelonephritis Acute, chronic, calculous, nonobstructive, due to device etc. Other specifics Please indicate acuity Other (explain) Clinically unable to determine (explain) Thank you, Dedra Haas, CCS, CDIS Use of terms such as suspected, likely, concern for, or probable (associated with a specific diagnosis that is being evaluated, monitored, or treated as if it exists) are acceptable and can be coded in the inpatient setting, when documented at the time of discharge. Please use your independent medical judgment in providing your response. THIS QUERY IS PART OF THE PERMANENT MEDICAL RECORD
[2025-03-09 11:44] LABS: Glucose, Whole Blood 79 mg/dL (60-115)
--- NOTE | 2025-03-09 13:24 | P.PNIM_ITS ---
Subjective Subjective Date of Service: 03/09/25 Interval History: Patient seen and examined at bedside this morning, mentions that her left-sided pain has improved, white count improving, continue with IV antibiotics. Patient states that she is not experiencing some nausea and vomiting. However mentions that she feels better. Review of Systems Review of Systems: Yes all other systems are reviewed and are negative Physical Exam 2 Exam: Exam: General: AxOx3, No acute distress Head: AT/NC ENT: Moist mucous membranes Neck: supple CVS; RRR, S1 S2 normal Lungs: Clear bilateral breath sounds, no wheezes or crackles Abd: Soft non tender, non distended Ext: No edema and no calf tenderness, Left CVA tenderness improved MSK: moving all 4 limbs Skin: No cyanosis or edema Psych: Cooperative with exam Neurology: no focal deficit Vital Signs: Vital Signs: Last Vital Signs Temp 97.9 F 03/09/25 11:51 Pulse 73 03/09/25 11:51 Resp 18 03/09/25 11:51 BP 118/58 L 03/09/25 11:51 Pulse Ox 94 03/09/25 11:51 O2 Del Method Room Air 03/09/25 11:51 BMI result Body Mass Index 31.1 Objective Data Active Medications Acetaminophen (Acetaminophen 325 Mg Tablet) 975 mg PO Q6H PRN PRN Reason: Pain, Mild 1-3,fever,headache Last Admin: 03/09/25 02:18 Dose: 975 mg Documented By: MIGUELITO Amlodipine Besylate (Amlodipine Besylate 5 Mg Tablet) 5 mg PO DAILY [facility]; Protocol Last Admin: 03/09/25 08:58 Dose: 5 mg Documented By: NURY Atorvastatin Calcium (Atorvastatin Calcium 80 Mg Tablet) 80 mg PO BEDTIME [facility] Last Admin: 03/08/25 21:30 Dose: 80 mg Documented By: MIGUELITO Brimonidine Tartrate (Brimonidine Tartrate 0.2% Oph 5 Ml Bottle) 1 drop EYE- BOTH BID [facility] Last Admin: 03/09/25 09:02 Dose: 1 drop Documented By: NURY Calcium Carbonate (Calcium Carbonate 750 Mg Tab.Chew) 750 mg PO Q4H PRN PRN Reason: Heartburn Dextrose (Dextrose 50 % 25 Gm/50 Ml Syringe) 25 gm IVPUSH Q15M PRN; Protocol PRN Reason: per Hypoglycemia Standing Ord. Ezetimibe (Ezetimibe 10 Mg Tablet) 10 mg PO DAILY [facility] Last Admin: 03/09/25 08:58 Dose: 10 mg Documented By: NURY Enoxaparin Sodium (Enoxaparin Sodium 40 Mg/0.4 Ml Syringe) 40 mg SUBCUT Q24H [facility] Last Admin: 03/08/25 21:34 Dose: 40 mg Documented By: MIGUELITO Ergocalciferol (Ergocalciferol (Vitamin D2) 1,250 Mcg Capsule) 1,250 mcg PO MO@0900 [facility] Glucose (Glucose Gel 15 Gm Gel..Gram.) 15 gm PO Q15M PRN; Protocol PRN Reason: per Hypoglycemia Standing Ord. Piperacillin Sod/Tazobactam (Sod 4.5 gm/ Sodium Chloride) 100 mls @ 200 mls/hr IV Q8H [facility] Last Infusion: 03/09/25 06:29 Dose: Infused Documented By: MIGUELITO Insulin Human Lispro (Insulin Lispro 100 Unit/Ml 3 Ml Vial) 0 unit SUBCUT QIDACHS [facility]; Protocol Last Admin: 03/09/25 12:04 Dose: Not Given Documented By: NURY Non-Admin Reason: No Insulin Coverage Magnesium Hydroxide (Milk Of Magnesia 30 Ml Oral.Susp) 30 ml PO DAILY PRN PRN Reason: Constipation Last Admin: 03/09/25 06:37 Dose: 30 ml Documented By: MIGUELITO Meclizine HCl (Meclizine Hcl 12.5 Mg Tablet) 12.5 mg PO TID PRN PRN Reason: Vertigo Melatonin (Melatonin 3 Mg Tablet) 6 mg PO BEDTIME PRN PRN Reason: Insomnia Non-Formulary Medication (Ciclopirox) 1 appl TOPICAL BID [facility] Ondansetron HCl (Ondansetron Hcl 4 Mg/2 Ml Vial) 4 mg IVPUSH Q8H PRN PRN Reason: Nausea and Vomiting Last Admin: 03/09/25 09:02 Dose: 4 mg Documented By: NURY Oxycodone HCl (Oxycodone Hcl Immed Release 5 Mg Tablet) 5 mg PO Q6H PRN PRN Reason: Pain, Severe (Pain Scale 7-10) Last Admin: 03/08/25 19:36 Dose: 5 mg Documented By: HO.DOBROB Pantoprazole Sodium (Pantoprazole Sodium 40 Mg/10 Ml Vial) 40 mg IVPUSH DAILY@0630 [facility] Sodium Chloride (0.9 % Sodium Chloride Flush 3 Ml Syringe) 3 ml IVFLUSH QSHIFT [facility] Last Admin: 03/09/25 08:59 Dose: 3 ml Documented By: NURY Tramadol HCl (Tramadol Hcl 50 Mg Tablet) 50 mg PO Q6H PRN PRN Reason: Pain, Moderate(Pain Scale 4-6) Labs 03/09/25 06:05 03/09/25 06:05 Labs: Laboratory Results - last 24 hr 03/08/25 03/08/25 03/09/25 16:14 20:29 06:05 MCV 88.1 MCH 29.0 MCHC 32.9 RDW 15.1 Plt Count 145 L MPV 11.2 Immature Gran % (Auto) 0.4 Neut % (Auto) 84.3 H Lymph % (Auto) 7.4 L [place] % (Auto) 7.4 Eos % (Auto) 0.3 Baso % (Auto) 0.2 Lymph # (Auto) 1.1 L [place] # (Auto) 1.1 Eos # (Auto) 0.0 Baso # (Auto) 0.0 Abs Immat Gran (auto) 0.06 H Absolute Neuts (auto) 12.4 H Absolute Nucleated RBC 0.000 Nucleated RBC % (auto) 0.0 Anion Gap 11 L Estim Creat Clear Calc 54.0 Estimated GFR 58 POC Glucose 150 H 116 H Random Glucose 109 Calcium 8.4 Magnesium 2.1 03/09/25 03/09/25 08:20 11:40 MCV MCH MCHC RDW Plt Count MPV Immature Gran % (Auto) Neut % (Auto) Lymph % (Auto) [place] % (Auto) Eos % (Auto) Baso % (Auto) Lymph # (Auto) [place] # (Auto) Eos # (Auto) Baso # (Auto) Abs Immat Gran (auto) Absolute Neuts (auto) Absolute Nucleated RBC Nucleated RBC % (auto) Anion Gap Estim Creat Clear Calc Estimated GFR POC Glucose 160 H 79 Random Glucose Calcium Magnesium Microbiology Microbiology Results: Microbiology 03/07/25 Unknown Urine Culture - Preliminary Urine clean catch - Clean Catch Midstream Gram negative martinez Assessment and Plan (1) Pyelonephritis of left kidney: Status: Acute (2) Diabetes mellitus with retinopathy: Status: Chronic Plan Patient is a 59-year-old female with a past medical history significant for history CVA with hemiparesis, type 2 diabetes, GERD, PATRICK, asthma, hypertension and hyperlipidemia, who presented to the ED due to a syncopal episode with fall as well as persistent dysuria. Diagnosed with left pyelonephritis, currently on IV Zosyn Left pyelonephritis - UA reviewed - CT scan reviewed w/ lef t pyelonephritis -continue zosyn given patient failed outpatient ab treatment, will tailor abs based on cultures, to treat for 7-10 days - ID consult - monitor CBC and BMP syncope, likely related to infectious etiology, no other episodes - echo - orthostatics - monitor on tele - cardiology following T2DM - sliding scale insulin - diabetic diet - hold metformin in setting of illness HTN, chronic -continue amlodipine 5mg qd, will monitor BP and adjust medication accordingly HLD - statin and ezetimibe hx CVA, L hemiparesis - ASA and statin GERD will initiate protonix 40mg DVT PPx: Lovenox Code Status: DNR/DNI Total time managing care of this patient today: 35 minutes. Quality Stroke Does the patient have a stroke diagnosis?: No VTE Prior VTE?: No VTE Risk Level:: Medical - moderate - high VTE Device Contraindication: Treatment Not Indicated VTE Drug Contraindication: N/A - Med Ordered
[2025-03-09] MEDS: oxyCODONE HCl Immed Release 5 MG TABLET PO ×2 (14:56→21:16)
[2025-03-09 15:33] LABS: Glucose, Whole Blood 110 mg/dL (60-115)
[2025-03-09 20:43] LABS: Glucose, Whole Blood 121 mg/dL (60-115)
[2025-03-10 03:46] VITALS: BP 145/73; PULSE 67; RESP 16; TEMP 36.5; O2SAT 97
[2025-03-10 04:43] LABS: Glucose, Whole Blood 110 mg/dL (60-115)
[2025-03-10 08:00] VITALS: BP 144/63; PULSE 63; RESP 18; TEMP 36.6; O2SAT 93
[2025-03-10 08:01] LABS: Glucose, Whole Blood 108 mg/dL (60-115)
[2025-03-10 08:21] LABS: MANUAL DIFF FLAG NO
[2025-03-10] MEDS: 0.9 % Sodium Chloride Flush 3 ML SYRINGE IVFLUSH ×2 (08:28→16:14)
[2025-03-10] MEDS: Brimonidine Tartrate 0.2% Oph 5 ML BOTTLE 1 DROP EYE-BOTH ×2 (08:35→21:29)
[2025-03-10] MEDS: Milk of Magnesia 30 ML ORAL.SUSP PO (08:35)
[2025-03-10 08:38] LABS: Hematocrit 26.9 % (37.0-47.0); Hemoglobin 8.7 g/dl (12.0-16.0); Imm Gran Abs Auto 0.03 X10*3/uL (0.00-0.03); Imm Gran Pct Auto 0.4 % (0.0-0.4); Lymphocytes Absolute Auto 0.8 X10*3/uL (1.2-4.9); Mean Corpuscular HGB Conc 32.3 g/dl (31.0-35.0); Mean Corpuscular Hemoglobin 28.2 pg (27.0-33.0); Mean Corpuscular Volume 87.3 fL (80.0-98.0); NRBC Abs Auto 0.000 X10*3/uL (0.0-0.012); NRBC Pct Auto 0.0 /100WBC (0.0-0.2); Platelet Count 148 X10*3/uL (160-400); Red Blood Count 3.08 X10*6/uL (4.20-5.50); White Blood Count 8.4 X10*3/uL (4.8-10.8)
[2025-03-10 08:57] LABS: Anion Gap 16 (12-20); Blood Urea Nitrogen 15 mg/dL (9-16); Calcium 8.3 mg/dL (8.4-10.2); Carbon Dioxide 23 mmol/L (22-29); Chloride 107 mmol/L (96-108); Creatinine Clr Calc Pharmacy 53.5; Estimated Glomerular Filt Rate 58; Magnesium 2.4 mg/dL (1.6-2.6); Potassium 3.6 mmol/L (3.3-5.1); Sodium 142 mmol/L (135-145)
[2025-03-10] MEDS: Lactated Ringers 1,000 ML 100 ML IVCONT ×2 (09:39→23:12)
[2025-03-10 11:44] VITALS: BP 111/75; PULSE 66; RESP 19; TEMP 36.6; O2SAT 94
--- NOTE | 2025-03-10 11:59 | HO.PM.IMPN ---
Subjective Subjective Date of Service: 03/10/25 Interval History: Patient seen examined at bedside this morning, patient states that she is experiencing some epigastric pain, as well as associated nausea, vomiting. Does mentioned that her back pain has improved. Review of Systems Review of Systems: Yes all other systems are reviewed and are negative Physical Exam Exam: Exam: General: AxOx3, No acute distress Head: AT/NC ENT: Moist mucous membranes Neck: supple CVS; RRR, S1 S2 normal Lungs: Clear bilateral breath sounds, no wheezes or crackles Abd: Soft non tender, non distended Ext: No edema and no calf tenderness MSK: moving all 4 limbs, left CVA tenderness Skin: No cyanosis or edema Psych: Cooperative with exam Neurology: no focal deficit Vital Signs: Vital Signs: Last Vital Signs Temp 97.9 F 03/10/25 11:44 Pulse 66 03/10/25 11:44 Resp 19 03/10/25 11:44 BP 111/75 03/10/25 11:44 Pulse Ox 94 03/10/25 11:44 O2 Del Method Room Air 03/10/25 11:44 O2 Flow Rate 1 03/10/25 03:46 BMI result Body Mass Index 31.1 Objective Data Active Medications Acetaminophen (Acetaminophen 325 Mg Tablet) 975 mg PO Q6H PRN PRN Reason: Pain, Mild 1-3,fever,headache Last Admin: 03/09/25 02:18 Dose: 975 mg Documented By: MIGUELITO Amlodipine Besylate (Amlodipine Besylate 5 Mg Tablet) 5 mg PO DAILY [facility]; Protocol Last Admin: 03/10/25 08:26 Dose: 5 mg Documented By: NURY Atorvastatin Calcium (Atorvastatin Calcium 80 Mg Tablet) 80 mg PO BEDTIME [facility] Last Admin: 03/09/25 21:16 Dose: 80 mg Documented By: AGUSTIN Brimonidine Tartrate (Brimonidine Tartrate 0.2% Oph 5 Ml Bottle) 1 drop EYE-BOTH BID [facility] Last Admin: 03/10/25 08:35 Dose: 1 drop Documented By: NURY Calcium Carbonate (Calcium Carbonate 750 Mg Tab.Chew) 750 mg PO Q4H PRN PRN Reason: Heartburn Last Admin: 03/10/25 08:27 Dose: 750 mg Documented By: NURY Dextrose (Dextrose 50 % 25 Gm/50 Ml Syringe) 25 gm IVPUSH Q15M PRN; Protocol PRN Reason: per Hypoglycemia Standing Ord. Ezetimibe (Ezetimibe 10 Mg Tablet) 10 mg PO DAILY [facility] Last Admin: 03/10/25 08:26 Dose: 10 mg Documented By: NURY Enoxaparin Sodium (Enoxaparin Sodium 40 Mg/0.4 Ml Syringe) 40 mg SUBCUT Q24H [facility] Last Admin: 03/09/25 21:16 Dose: 40 mg Documented By: AGUSTIN Ergocalciferol (Ergocalciferol (Vitamin D2) 1,250 Mcg Capsule) 1,250 mcg PO MO@0900 [facility] Glucose (Glucose Gel 15 Gm Gel..Gram.) 15 gm PO Q15M PRN; Protocol PRN Reason: per Hypoglycemia Standing Ord. Ceftriaxone Sodium 1 gm/ (Sodium Chloride) 50 mls @ 100 mls/hr IV Q24H [facility] Stop: 03/17/25 07:44 Last Infusion: 03/10/25 09:17 Dose: Infused Documented By: NURY Lactated Ringer's (Lr) 1,000 mls @ 100 mls/hr IVCONT .Q10H [facility] Last Admin: 03/10/25 09:39 Dose: 100 mls/hr Documented By: NURY Insulin Human Lispro (Insulin Lispro 100 Unit/Ml 3 Ml Vial) 0 unit SUBCUT QIDACHS [facility]; Protocol Last Admin: 03/10/25 08:02 Dose: Not Given Documented By: NURY Non-Admin Reason: No Insulin Coverage Magnesium Hydroxide (Milk Of Magnesia 30 Ml Oral.Susp) 30 ml PO DAILY PRN PRN Reason: Constipation Last Admin: 03/10/25 08:35 Dose: 30 ml Documented By: NURY Meclizine HCl (Meclizine Hcl 12.5 Mg Tablet) 12.5 mg PO TID PRN PRN Reason: Vertigo Melatonin (Melatonin 3 Mg Tablet) 6 mg PO BEDTIME PRN PRN Reason: Insomnia Last Admin: 03/09/25 21:16 Dose: 6 mg Documented By: AGUSTIN Non-Formulary Medication (Ciclopirox) 1 appl TOPICAL BID [facility] Ondansetron HCl (Ondansetron Hcl 4 Mg/2 Ml Vial) 4 mg IVPUSH Q8H PRN PRN Reason: Nausea and Vomiting Last Admin: 03/09/25 09:02 Dose: 4 mg Documented By: NURY Oxycodone HCl (Oxycodone Hcl Immed Release 5 Mg Tablet) 5 mg PO Q6H PRN PRN Reason: Pain, Severe (Pain Scale 7-10) Last Admin: 03/09/25 21:16 Dose: 5 mg Documented By: AGUSTIN Pantoprazole Sodium (Pantoprazole Sodium 40 Mg/10 Ml Vial) 40 mg IVPUSH DAILY@0630 [facility] Last Admin: 03/10/25 05:56 Dose: 40 mg Documented By: AGUSTIN Sodium Chloride (0.9 % Sodium Chloride Flush 3 Ml [facility]ringe) [facility] Last Admin: 03/10/25 08:28 Dose: 3 ml Documented By: NURY Tramadol HCl (Tramadol Hcl 50 Mg Tablet) 50 mg PO Q6H PRN PRN Reason: Pain, Moderate(Pain Scale 4-6) Labs 03/10/25 07:37 03/10/25 07:37 Labs: Laboratory Results - last 24 hr 03/09/25 03/09/25 03/10/25 15:26 20:36 04:39 MCV MCH MCHC RDW Plt Count MPV Immature Gran % (Auto) Neut % (Auto) Lymph % (Auto) [place] % (Auto) Eos % (Auto) Baso % (Auto) Lymph # (Auto) [place] # (Auto) Eos # (Auto) Baso # (Auto) Abs Immat Gran (auto) Absolute Neuts (auto) Absolute Nucleated RBC Nucleated RBC % (auto) Anion Gap Estim Creat Clear Calc Estimated GFR POC Glucose 110 121 H 110 Random Glucose Calcium Magnesium 03/10/25 03/10/25 07:37 07:51 MCV 87.3 MCH 28.2 MCHC 32.3 RDW 14.9 Plt Count 148 L MPV 11.6 Immature Gran % (Auto) 0.4 Neut % (Auto) 80.6 H Lymph % (Auto) 10.0 L [place] % (Auto) 7.5 Eos % (Auto) 1.1 Baso % (Auto) 0.4 Lymph # (Auto) 0.8 L [place] # (Auto) 0.6 Eos # (Auto) 0.1 Baso # (Auto) 0.0 Abs Immat Gran (auto) 0.03 Absolute Neuts (auto) 6.8 Absolute Nucleated RBC 0.000 Nucleated RBC % (auto) 0.0 Anion Gap 16 Estim Creat Clear Calc 53.5 Estimated GFR 58 POC Glucose 108 Random Glucose 105 Calcium 8.3 L Magnesium 2.4 Microbiology Microbiology Results: Microbiology 03/07/25 Unknown Urine Culture - Final Urine clean catch - Clean Catch Midstream Klebsiella pneumoniae Assessment and Plan (1) Diabetes mellitus with retinopathy: Status: Chronic (2) Pyelonephritis: Status: Acute Plan Patient is a 59-year-old female with a past medical history significant for history CVA with hemiparesis, type 2 diabetes, GERD, PATRICK, asthma, hypertension and hyperlipidemia, who presented to the ED due to a syncopal episode with fall as well as persistent dysuria. Diagnosed with left pyelonephritis, w/ urine cultures positive for pansensitive klebsiella, transitioned from IV zosyn to ceftriaxone. Left pyelonephritis 2/2 pansensitive klebsiella - UA reviewed - CT scan reviewed w/ left pyelonephritis - transitioned from zosyn to rocephin patient failed outpatient ab treatment, will tailor abs based on cultures, to treat for 7-10 days - monitor CBC and BMP - restarted on LR 100ml syncope, likely related to infectious etiology, no other episodes - echo - orthostatics - monitor on tele - cardiology following T2DM - sliding scale insulin - diabetic diet - hold metformin in setting of illness HTN, chronic -continue amlodipine 5mg qd, will monitor BP and adjust medication accordingly HLD - statin and ezetimibe hx CVA, L hemiparesis - ASA and statin GERD continue protonix 40mg, will give tums DVT PPx: Lovenox Code Status: DNR/DNI Total time managing care of this patient today: 55 minutes. Quality Stroke Does the patient have a stroke diagnosis?: No VTE Prior VTE?: No VTE Risk Level:: Medical - moderate - high VTE Device Contraindication: Treatment Not Indicated VTE Drug Contraindication: N/A - Med Ordered
[2025-03-10 12:00] LABS: Glucose, Whole Blood 148 mg/dL (60-115)
[2025-03-10 14:00] VITALS: BP 111/75; PULSE 66; RESP 19; TEMP 36.6; O2SAT 94
[2025-03-10 16:13] LABS: Glucose, Whole Blood 110 mg/dL (60-115)
[2025-03-10] MEDS: oxyCODONE HCl Immed Release 5 MG TABLET PO (16:19)
[2025-03-10 20:00] VITALS: BP 150/68; PULSE 73; RESP 18; TEMP 36.2; O2SAT 94
[2025-03-10 21:04] LABS: Glucose, Whole Blood 158 mg/dL (60-115)
[2025-03-10 23:49] VITALS: BP 155/79; PULSE 62; RESP 16; TEMP 36.3; O2SAT 96
[2025-03-11 03:32] VITALS: BP 153/69; PULSE 61; RESP 16; TEMP 36.3; O2SAT 94
[2025-03-11 08:48] LABS: Glucose, Whole Blood 126 mg/dL (60-115)
[2025-03-11] MEDS: Brimonidine Tartrate 0.2% Oph 5 ML BOTTLE 1 DROP EYE-BOTH ×2 (09:19→20:40)
[2025-03-11] MEDS: oxyCODONE HCl Immed Release 5 MG TABLET PO ×2 (09:21→20:39)
[2025-03-11 09:29] VITALS: BP 150/68; PULSE 80; RESP 18; TEMP 36.6; O2SAT 97
--- NOTE | 2025-03-11 10:08 | HO.PM.IMPN ---
Subjective Subjective Date of Service: 03/11/25 Interval History: Patient seen and examined at bedside this morning, measures and she has been feeling better, is now having bowel movements, is urinating, left back pain, greatly improved. Leukocytosis resolved. No concerns voiced by the nursing staff. Review of Systems Review of Systems: Yes all other systems are reviewed and are negative Physical Exam Exam: Exam: General: AxOx3, No acute distress Head: AT/NC ENT: Moist mucous membranes Neck: supple CVS; RRR, S1 S2 normal Lungs: Clear bilateral breath sounds, no wheezes or crackles Abd: Soft non tender, non distended Ext: No edema and no calf tenderness MSK: moving all 4 limbs Skin: No cyanosis or edema Psych: Cooperative with exam Neurology: no focal deficit Vital Signs: Vital Signs: Last Vital Signs Temp 97.9 F 03/11/25 09:29 Pulse 80 03/11/25 09:29 Resp 18 03/11/25 09:29 BP 150/68 H 03/11/25 09:29 Pulse Ox 97 03/11/25 09:29 O2 Del Method Room Air 03/11/25 09:29 O2 Flow Rate 1 03/10/25 03:46 BMI result Body Mass Index 31.1 Objective Data Active Medications Acetaminophen (Acetaminophen 325 Mg Tablet) 975 mg PO Q6H PRN PRN Reason: Pain, Mild 1-3,fever,headache Last Admin: 03/10/25 21:29 Dose: 975 mg Documented By: AGUSTIN Amlodipine Besylate (Amlodipine Besylate 5 Mg Tablet) 5 mg PO DAILY [facility]; Protocol Last Admin: 03/11/25 09:18 Dose: 5 mg Documented By: NURY Atorvastatin Calcium (Atorvastatin Calcium 80 Mg Tablet) 80 mg PO BEDTIME [facility] Last Admin: 03/10/25 21:27 Dose: 80 mg Documented By: AGUSTIN Brimonidine Tartrate (Brimonidine Tartrate 0.2% Oph 5 Ml Bottle) 1 drop EYE-BOTH BID [facility] Last Admin: 03/11/25 09:19 Dose: 1 drop Documented By: NURY Calcium Carbonate (Calcium Carbonate 750 Mg Tab.Chew) 750 mg PO Q4H PRN PRN Reason: Heartburn Last Admin: 03/10/25 08:27 Dose: 750 mg Documented By: NURY Dextrose (Dextrose 50 % 25 Gm/50 Ml Syringe) 25 gm IVPUSH Q15M PRN; Protocol PRN Reason: per Hypoglycemia Standing Ord. Ezetimibe (Ezetimibe 10 Mg Tablet) 10 mg PO DAILY [facility] Last Admin: 03/11/25 09:19 Dose: 10 mg Documented By: NURY Enoxaparin Sodium (Enoxaparin Sodium 40 Mg/0.4 Ml Syringe) 40 mg SUBCUT Q24H [facility] Last Admin: 03/10/25 21:29 Dose: 40 mg Documented By: AGUSTIN Ergocalciferol (Ergocalciferol (Vitamin D2) 1,250 Mcg Capsule) 1,250 mcg PO MO@0900 [facility] Glucose (Glucose Gel 15 Gm Gel..Gram.) 15 gm PO Q15M PRN; Protocol PRN Reason: per Hypoglycemia Standing Ord. Ceftriaxone Sodium 1 gm/ (Sodium Chloride) 50 mls @ 100 mls/hr IV Q24H [facility] Stop: 03/17/25 07:44 Last Admin: 03/11/25 09:19 Dose: 100 mls/hr Documented By: NURY Lactated Ringer's (Lr) 1,000 mls @ 100 mls/hr IVCONT .Q10H [facility] Last Admin: 03/10/25 23:12 Dose: 100 mls/hr Documented By: AGUSTIN Insulin Human Lispro (Insulin Lispro 100 Unit/Ml 3 Ml Vial) 0 unit SUBCUT QIDACHS [facility]; Protocol Last Admin: 03/11/25 09:05 Dose: Not Given Documented By: NURY Non-Admin Reason: No Insulin Coverage Lactulose (Lactulose 20 Gm/30 Ml Solution) 30 gm PO DAILY PRN PRN Reason: Constipation Last Admin: 03/10/25 16:19 Dose: 30 gm Documented By: NURY Magnesium Hydroxide (Milk Of Magnesia 30 Ml Oral.Susp) 30 ml PO DAILY PRN PRN Reason: Constipation Last Admin: 03/10/25 08:35 Dose: 30 ml Documented By: NURY Meclizine HCl (Meclizine Hcl 12.5 Mg Tablet) 12.5 mg PO TID PRN PRN Reason: Vertigo Melatonin (Melatonin 3 Mg Tablet) 6 mg PO BEDTIME PRN PRN Reason: Insomnia Last Admin: 03/10/25 21:27 Dose: 6 mg Documented By: AGUSTIN Non-Formulary Medication (Ciclopirox) 1 appl TOPICAL BID [facility] Ondansetron HCl (Ondansetron Hcl 4 Mg/2 Ml Vial) 4 mg IVPUSH Q8H PRN PRN Reason: Nausea and Vomiting Last Admin: 03/09/25 09:02 Dose: 4 mg Documented By: NURY Oxycodone HCl (Oxycodone Hcl Immed Release 5 Mg Tablet) 5 mg PO Q6H PRN PRN Reason: Pain, Severe (Pain Scale 7-10) Last Admin: 03/11/25 09:21 Dose: 5 mg Documented By: NURY Pantoprazole Sodium (Pantoprazole Sodium 40 Mg/10 Ml Vial) 40 mg IVPUSH DAILY@0630 [facility] Last Admin: 03/11/25 06:06 Dose: 40 mg Documented By: AGUSTIN Sodium Chloride (0.9 % Sodium Chloride Flush 3 Ml Syringe) 3 ml IVFLUSH QSHIFT [facility] Last Admin: 03/11/25 09:16 Dose: Not Given Documented By: NURY Non-Admin Reason: IV Running Tramadol HCl (Tramadol Hcl 50 Mg Tablet) 50 mg PO Q6H PRN PRN Reason: Pain, Moderate(Pain Scale 4-6) Labs 03/10/25 07:37 03/10/25 07:37 Labs: Laboratory Results - last 24 hr 03/10/25 03/10/25 03/10/25 11:54 16:02 20:35 POC Glucose 148 H 110 158 H 03/11/25 08:44 POC Glucose 126 H Microbiology Microbiology Results: Microbiology 03/07/25 Unknown Urine Culture - Final Urine clean catch - Clean Catch Midstream Klebsiella pneumoniae Assessment and Plan (1) Diabetes mellitus with retinopathy: Status: Chronic (2) Pyelonephritis of left kidney: Status: Acute (3) UTI (urinary tract infection): Status: Acute Plan Patient is a 59-year-old female with a past medical history significant for history CVA with hemiparesis, type 2 diabetes, GERD, PATRICK, asthma, hypertension and hyperlipidemia, who presented to the ED due to a syncopal episode with fall as well as persistent dysuria. Diagnosed with left pyelonephritis, w/ urine cultures positive for pansensitive klebsiella, transitioned from IV zosyn to ceftriaxone. Left pyelonephritis 2/2 pansensitive klebsiella - UA reviewed - CT scan reviewed w/ left pyelonephritis - transitioned from zosyn to rocephin patient failed outpatient ab treatment, treat for 7-10 days - monitor CBC and BMP - continue LR 100ml syncope, likely related to infectious etiology, no other episodes, resolved - echo - orthostatics - monitor on tele T2DM - sliding scale insulin - diabetic diet - hold metformin in setting of illness HTN, chronic -continue amlodipine 5mg qd, will monitor BP and adjust medication accordingly HLD - statin and ezetimibe hx CVA, L hemiparesis - ASA and statin GERD continue protonix 40mg and tums DVT PPx: Lovenox Code Status: DNR/DNI Disposition: All questions and concerns with the patient were answered to satisfaction. All pertinent clinical documents, images and labs were reviewed. DISCLAIMER: This document was created using voice recognition software. Any mistakes in the prescription are unintentional. An attempt was made to focus for accuracy, but to expedite availability, some errors may persist. Please contact with any need for correction or further clarification Total time managing care of this patient today: 35 minutes. Quality Stroke Does the patient have a stroke diagnosis?: No VTE Prior VTE?: No VTE Risk Level:: Medical - moderate - high VTE Device Contraindication: Treatment Not Indicated VTE Drug Contraindication: N/A - Med Ordered
[2025-03-11 12:36] LABS: Glucose, Whole Blood 124 mg/dL (60-115)
[2025-03-11 14:00] VITALS: BP 153/69; PULSE 66; RESP 18; TEMP 36.5; O2SAT 95
[2025-03-11 16:16] LABS: Glucose, Whole Blood 203 mg/dL (60-115)
[2025-03-11 16:21] VITALS: BP 154/77; PULSE 79; RESP 18; TEMP 36.8; O2SAT 95
[2025-03-11 20:32] LABS: Glucose, Whole Blood 105 mg/dL (60-115)
[2025-03-11] MEDS: 0.9 % Sodium Chloride Flush 3 ML SYRINGE IVFLUSH (20:40)
[2025-03-11 22:00] VITALS: BP 148/76; PULSE 82; RESP 18; TEMP 37; O2SAT 97
[2025-03-11 23:52] VITALS: BP 133/61; PULSE 63; RESP 16; TEMP 36.6; O2SAT 95
[2025-03-12 03:12] VITALS: BP 130/77; PULSE 64; RESP 16; TEMP 36.7; O2SAT 95
[2025-03-12 07:22] LABS: Glucose, Whole Blood 136 mg/dL (60-115)
[2025-03-12 07:34] VITALS: BP 149/72; PULSE 75; RESP 18; TEMP 36.6; O2SAT 97
--- NOTE | 2025-03-12 10:31 | MHC.CM.PN ---
Per ROUNDS discussion, Patient is not yet medically cleared for dc (nausea & 1 more day of IV ABX); home is the goal and CM will continue to follow.
[2025-03-12] MEDS: Brimonidine Tartrate 0.2% Oph 5 ML BOTTLE 1 DROP EYE-BOTH (10:35)
[2025-03-12 11:23] LABS: Glucose, Whole Blood 137 mg/dL (60-115)
--- NOTE | 2025-03-12 14:52 | P.PNIM_ITS ---
Subjective Subjective Date of Service: 03/12/25 Interval History: Patient seen examined at bedside this morning, patient states that she is experiencing nausea and vomiting, has been having bowel movements. No dysuria. Review of Systems Review of Systems: Yes all other systems are reviewed and are negative Physical Exam 2 Exam: Exam: General: AxOx3, No acute distress Head: AT/NC ENT: Moist mucous membranes Neck: supple CVS; RRR, S1 S2 normal Lungs: Clear bilateral breath sounds, no wheezes or crackles Abd: Soft, mild tenderness, non distended Ext: No edema and no calf tenderness MSK: moving all 4 limbs Skin: No cyanosis or edema Psych: Cooperative with exam Neurology: no focal deficit Vital Signs: Vital Signs: Last Vital Signs Temp 97.9 F 03/12/25 07:34 Pulse 75 03/12/25 07:34 Resp 18 03/12/25 07:34 BP 149/72 H 03/12/25 07:34 Pulse Ox 97 03/12/25 07:34 O2 Del Method Room Air 03/12/25 07:34 O2 Flow Rate 1 03/10/25 03:46 BMI result Body Mass Index 31.1 Objective Data Active Medications Acetaminophen (Acetaminophen 325 Mg Tablet) 975 mg PO Q6H PRN PRN Reason: Pain, Mild 1-3,fever,headache Last Admin: 03/12/25 07:44 Dose: 975 mg Documented By: LASHAE Amlodipine Besylate (Amlodipine Besylate 5 Mg Tablet) 5 mg PO DAILY [facility]; Protocol Last Admin: 03/12/25 07:44 Dose: 5 mg Documented By: LASHAE Atorvastatin Calcium (Atorvastatin Calcium 80 Mg Tablet) 80 mg PO BEDTIME [facility] Last Admin: 03/11/25 20:40 Dose: 80 mg Documented By: WILLIAN Brimonidine Tartrate (Brimonidine Tartrate 0.2% Oph 5 Ml Bottle) 1 drop EYE- BOTH BID [facility] Last Admin: 03/12/25 10:35 Dose: 1 drop Documented By: LASHAE Calcium Carbonate (Calcium Carbonate 750 Mg Tab.Chew) 750 mg PO Q4H PRN PRN Reason: Heartburn Last Admin: 03/10/25 08:27 Dose: 750 mg Documented By: NURY Dextrose (Dextrose 50 % 25 Gm/50 Ml Syringe) 25 gm IVPUSH Q15M PRN; Protocol PRN Reason: per Hypoglycemia Standing Ord. Ezetimibe (Ezetimibe 10 Mg Tablet) 10 mg PO DAILY [facility] Last Admin: 03/12/25 07:44 Dose: 10 mg Documented By: LASHAE Enoxaparin Sodium (Enoxaparin Sodium 40 Mg/0.4 Ml Syringe) 40 mg SUBCUT Q24H [facility] Last Admin: 03/11/25 22:43 Dose: 40 mg Documented By: WILLIAN Ergocalciferol (Ergocalciferol (Vitamin D2) 1,250 Mcg Capsule) 1,250 mcg PO MO@0900 [facility] Last Admin: 03/12/25 07:44 Dose: 1,250 mcg Documented By: LASHAE Glucose (Glucose Gel 15 Gm Gel..Gram.) 15 gm PO Q15M PRN; Protocol PRN Reason: per Hypoglycemia Standing Ord. Ceftriaxone Sodium 1 gm/ (Sodium Chloride) 50 mls @ 100 mls/hr IV Q24H [facility] Stop: 03/17/25 07:44 Last Infusion: 03/12/25 10:01 Dose: Infused Documented By: LASHAE Insulin Human Lispro (Insulin Lispro 100 Unit/Ml 3 Ml Vial) 0 unit SUBCUT QIDACHS [facility]; Protocol Last Admin: 03/12/25 12:10 Dose: Not Given Documented By: LASHAE Non-Admin Reason: No Insulin Coverage Lactulose (Lactulose 20 Gm/30 Ml Solution) 30 gm PO DAILY PRN PRN Reason: Constipation Last Admin: 03/10/25 16:19 Dose: 30 gm Documented By: NURY Magnesium Hydroxide (Milk Of Magnesia 30 Ml Oral.Susp) 30 ml PO DAILY PRN PRN Reason: Constipation Last Admin: 03/10/25 08:35 Dose: 30 ml Documented By: NURY Meclizine HCl (Meclizine Hcl 12.5 Mg Tablet) 12.5 mg PO TID PRN PRN Reason: Vertigo Melatonin (Melatonin 3 Mg Tablet) 6 mg PO BEDTIME PRN PRN Reason: Insomnia Last Admin: 03/10/25 21:27 Dose: 6 mg Documented By: AGUSTIN Non-Formulary Medication (Ciclopirox) 1 appl TOPICAL BID [facility] Ondansetron HCl (Ondansetron Hcl 4 Mg/2 Ml Vial) 4 mg IVPUSH Q8H PRN PRN Reason: Nausea and Vomiting Last Admin: 03/12/25 07:52 Dose: 4 mg Documented By: LASHAE Oxycodone HCl (Oxycodone Hcl Immed Release 5 Mg Tablet) 5 mg PO Q6H PRN PRN Reason: Pain, Severe (Pain Scale 7-10) Last Admin: 03/11/25 20:39 Dose: 5 mg Documented By: WILLIAN Pantoprazole Sodium (Pantoprazole Sodium 40 Mg/10 Ml Vial) 40 mg IVPUSH DAILY@0630 [facility] Last Admin: 03/12/25 05:55 Dose: 40 mg Documented By: WILLIAN Sodium Chloride (0.9 % Sodium Chloride Flush 3 Ml Syringe) 3 ml IVFLUSH QSHIFT [facility] Last Admin: 03/12/25 08:04 Dose: Not Given Documented By: LASHAE Non-Admin Reason: IV Running Tramadol HCl (Tramadol Hcl 50 Mg Tablet) 50 mg PO Q6H PRN PRN Reason: Pain, Moderate(Pain Scale 4-6) Labs 03/10/25 07:37 03/10/25 07:37 Labs: Laboratory Results - last 24 hr 03/11/25 03/11/25 03/12/25 16:06 20:28 07:18 POC Glucose 203 H 105 136 H 03/12/25 11:07 POC Glucose 137 H Assessment and Plan (1) Pyelonephritis of left kidney: Status: Acute (2) Diabetes mellitus with retinopathy: Status: Chronic (3) Essential hypertension: Status: Chronic Plan Patient is a 59-year-old female with a past medical history significant for history CVA with hemiparesis, type 2 diabetes, GERD, PATRICK, asthma, hypertension and hyperlipidemia, who presented to the ED due to a syncopal episode with fall as well as persistent dysuria. Diagnosed with left pyelonephritis, w/ urine cultures positive for pansensitive klebsiella, transitioned from IV zosyn to ceftriaxone. Left pyelonephritis 2/2 pansensitive klebsiella - UA reviewed - CT scan reviewed w/ left pyelonephritis - continue rocephin patient failed outpatient ab treatment, w/ EoT 03/16 - monitor CBC and BMP - continue LR 100ml syncope, likely related to infectious etiology, no other episodes, resolved - echo - orthostatics - monitor on tele T2DM possible gastroparesis - sliding scale insulin - diabetic diet - hold metformin in setting of illness, will restart once d/c - will give reglan prior to meals HTN, chronic -continue amlodipine 5mg qd, will monitor BP and adjust medication accordingly HLD - statin and ezetimibe hx CVA, L hemiparesis - ASA and statin GERD continue protonix 40mg and tums DVT PPx: Lovenox Code Status: DNR/DNI Disposition: All questions and concerns with the patient were answered to satisfaction. All pertinent clinical documents, images and labs were reviewed. DISCLAIMER: This document was created using voice recognition software. Any mistakes in the prescription are unintentional. An attempt was made to focus for accuracy, but to expedite availability, some errors may persist. Please contact with any need for correction or further clarification Total time managing care of this patient today: 35 minutes. Quality Stroke Does the patient have a stroke diagnosis?: No VTE Prior VTE?: No VTE Risk Level:: Medical - moderate - high VTE Device Contraindication: Treatment Not Indicated VTE Drug Contraindication: N/A - Med Ordered
[2025-03-12 15:38] VITALS: BP 150/70; PULSE 64; RESP 18; TEMP 36; O2SAT 97
[2025-03-12 16:31] LABS: Glucose, Whole Blood 123 mg/dL (60-115)
[2025-03-12] MEDS: 0.9 % Sodium Chloride Flush 3 ML SYRINGE IVFLUSH ×2 (17:29→20:54)
[2025-03-12 19:30] VITALS: BP 168/72; PULSE 68; RESP 14; TEMP 36.8; O2SAT 97
[2025-03-12 20:40] LABS: Glucose, Whole Blood 145 mg/dL (60-115)
[2025-03-12] MEDS: oxyCODONE HCl Immed Release 5 MG TABLET PO (20:51)
[2025-03-12 21:53] VITALS: BP 145/62; PULSE 69; RESP 15; TEMP 36.8; O2SAT 95
[2025-03-13 05:08] VITALS: BP 127/62; PULSE 67; RESP 18; TEMP 36.2; O2SAT 92
[2025-03-13 07:32] LABS: Glucose, Whole Blood 124 mg/dL (60-115)
[2025-03-13 07:53] VITALS: BP 173/81; PULSE 70; RESP 20; TEMP 36; O2SAT 94
[2025-03-13] MEDS: Brimonidine Tartrate 0.2% Oph 5 ML BOTTLE 1 DROP EYE-BOTH (08:22)
[2025-03-13] MEDS: 0.9 % Sodium Chloride Flush 3 ML SYRINGE IVFLUSH (08:22)
[2025-03-13 11:43] VITALS: BP 161/71; PULSE 66; RESP 20; TEMP 36.1; O2SAT 98
[2025-03-13 11:45] LABS: Glucose, Whole Blood 131 mg/dL (60-115)
--- NOTE | 2025-03-13 13:06 | MHC.CM.PN ---
Patient has been medically cleared for dc to home, self care today. IMM was addressed with Patient at bedside. Sister will transport.
--- NOTE | 2025-03-13 13:14 | PM.DS ---
DS: Providers Provider Date of Service: 03/13/25 Date of admission: 03/07/25 22:42 Date of discharge: 03/13/25 Primary care physician: María Cooper MD Consults: 03/07/25 23:15 Consult to Cardiology Routine Consulting Provider: [facility] Reason for consultation: syncopal episode Attending physician on discharge: Louis Walsh Discharging clinician: Louis Walsh DS: Diagnosis Discharge Diagnosis (1) Pyelonephritis of left kidney: Status: Acute (2) Diabetes mellitus with retinopathy: Status: Chronic (3) Essential hypertension: Status: Chronic DS: Summary Hospital Course Hospital Course: Patient is a 59-year-old female with a past medical history significant for history CVA with hemiparesis, type 2 diabetes, GERD, PATRICK, asthma, hypertension and hyperlipidemia, who presented to the ED due to a syncopal episode with fall as well as persistent dysuria. Diagnosed with left pyelonephritis, w/ urine cultures positive for pansensitive klebsiella, transitioned from IV zosyn to ceftriaxone. transitioned to cipro for discharge Left pyelonephritis 2/2 pansensitive klebsiella - UA and culture reviewed - CT scan reviewed w/ left pyelonephritis - continue rocephin patient failed outpatient ab treatment, transitioned to ciprofloxacin w/ EoT 03/16 - monitor CBC and BMP - s/p IV F syncope, likely related to infectious etiology, no other episodes, resolved - echo T2DM - diabetic diet - restart metformin in setting of illness HTN, chronic -continue amlodipine 5mg qd HLD - statin and ezetimibe hx CVA, L hemiparesis - ASA and statin GERD continue protonix 40mg and tums Time Attestation Discharge Coordination Time (in mins): 35 minutes Quality: Safe Use of Opioids Does Pt have an Active Cancer Diagnosis on the Problem List?: No Quality: Stroke Does the patient have a stroke diagnosis?: No Physical Exam Exam: Exam: General: AxOx3, No acute distress Head: AT/NC ENT: Moist mucous membranes Neck: supple CVS; RRR, S1 S2 normal Lungs: Clear bilateral breath sounds, no wheezes or crackles Abd: Soft non tender, non distended Ext: No edema and no calf tenderness MSK: moving all 4 limbs Skin: No cyanosis or edema Psych: Cooperative with exam Neurology: no focal deficit Vital Signs: Vital Signs: Last Vital Signs Temp 96.9 F 03/13/25 11:43 Pulse 66 03/13/25 11:43 Resp 20 03/13/25 11:43 BP 161/71 H 03/13/25 11:43 Pulse Ox 98 03/13/25 11:43 O2 Del Method Room Air 03/13/25 11:43 O2 Flow Rate 1 03/10/25 03:46 BMI result Body Mass Index 31.1 DS: Data Data Completed and Pending Labs on day of discharge: Laboratory Results - last 24 hr 03/12/25 03/12/25 03/13/25 16:27 20:36 07:05 POC Glucose 123 H 145 H 124 H 03/13/25 11:42 POC Glucose 131 H Discharge Plan Discharge Anticipated Discharge Date/Time: 03/13/25 14:53 Patient Disposition: Home, Self-Care Discharge Diagnosis: Left pyelonephritis Referrals: María Cooper MD [Primary Care Provider, Internal Medicine] - 1 Week Discharge Medications: New oxycodone 5 mg Tablet 5 mg PO Q6H PRN (Reason: Pain, Severe (Pain Scale 7-10)) 3 Days Qty: 10 0RF Rx Instructions: Partial Fill upon patient request. ciprofloxacin HCl 500 mg tablet 500 mg PO BID 3 Days Qty: 6 0RF Continued (DME) To [place] [facility] See Rx Instructions .Route .MEDSUPPLY Qty: 1 0RF Rx Instructions: .?Occupational Therapy evaluation for functional community mobility. (DME) FreeStyle Lite Strips Strip See Rx Instructions .ROUTE .MEDSUPPLY Qty: 100 6RF Rx Instructions: test blood sugar twice a day (DME) lancing device Misc See Rx Instructions .ROUTE .MEDSUPPLY Qty: 1 0RF Rx Instructions: As directed (DME) miscellaneous medical supply Misc See Rx Instructions .Route Qty: 1 0RF Rx Instructions: Use As directed (DME) Hand-held shower See Rx Instructions .Route .MEDSUPPLY Qty: 1 0RF Rx Instructions: Use As directed (DME) Re-usable bed pads See Rx Instructions .Route .MEDSUPPLY Qty: 4 2RF Rx Instructions: Use As directed (DME) Adult pull-ups large See Rx Instructions .Route .MEDSUPPLY Qty: 150 11RF Rx Instructions: Use As directed (DME) diaphers large See Rx Instructions .Route .MEDSUPPLY Qty: 100 11RF Rx Instructions: As directed (DME) Raised toilet seat See Rx Instructions .Route .MEDSUPPLY Qty: 1 0RF Rx Instructions: As directed lisinopril-hydrochlorothiazide 10-12.5 mg tablet 1 tab PO DAILY Qty: 90 1RF atorvastatin 80 mg tablet 80 mg PO BEDTIME 90 Days Qty: 90 1RF ezetimibe 10 mg tablet 10 mg PO DAILY Qty: 90 1RF Rx Instructions: NEED SCHEDULED APPOINTMENT FOR FUTURE REFILLS (DME) FreeStyle Lite Strips Strip See Rx Instructions .Route Qty: 100 5RF Rx Instructions: Check fasting blood sugar twice a day before meals ibuprofen 600 mg tablet 600 mg PO BID PRN (Reason: for pain) Qty: 40 0RF meclizine 12.5 mg tablet 12.5 mg PO TID PRN (Reason: vertigo) 5 Days Qty: 20 0RF dulaglutide 1.5 mg/0.5 mL pen injector 1.5 mg subcut TH terbinafine HCl [Athlete's Foot (terbinafine)] 1 % cream 1 appl topical BID Protocol: Apply to: Apply to: toe nails ciclopirox 0.77 % suspension 1 appl topical BID Protocol: Apply to: Apply to: nails amlodipine 5 mg Tablet 5 mg PO DAILY cholecalciferol (vitamin D3) 1,250 mcg (50,000 unit) capsule 1,250 mcg PO MO@0900 brimonidine 0.2 % Drops 1 drp OPHTHALMIC (EYE) BID Rx Instructions: administer approximately 8 hours apart (DME) blood pressure monitor Kit See Rx Instructions .Route Qty: 1 0RF Rx Instructions: As directed (DME) blood-glucose meter [FreeStyle Lite Meter] Kit See Rx Instructions .ROUTE .MEDSUPPLY Qty: 1 0RF Rx Instructions: Three times a day Held ferrous sulfate 325 mg (65 mg iron) tablet 325 mg PO DAILY Qty: 90 1RF Hold Instructions: Resume on 03/19/25. Discharge Orders: Discharge Order (Routine); Ordered 03/13/25 Ordered By: Louis Walsh Activity on Discharge: As tolerated Stand Alone Forms: Patient Portal Discharge page Print Language: Armenian Care Plan Goals: continue antibiotics for urinary tract infection follow up with primary care provider and urologist Health Concerns: left pyelonephritis syncope secondary to pain Plan of Treatment: po antibiotics, pain medication Assessment: Patient is a 59-year-old female with a past medical history significant for history CVA with hemiparesis, type 2 diabetes, GERD, PATRICK, asthma, hypertension and hyperlipidemia, who presented to the ED due to a syncopal episode with fall as well as persistent dysuria. Diagnosed with left pyelonephritis, w/ urine cultures positive for pansensitive klebsiella, transitioned from IV zosyn to ceftriaxone. transitioned to cipro for discharge Patient Instructions: Urinary Tract Infection in Women (DC)
== END 2025-03-13 13:54 | disposition home or self-care (01) | DRG 690 ==
LOC: HO.ED 17:30 → HO.EDOVER 22:48 → HO.IMC 23:20
PROVIDERS: Admitting Provider Physician Assistant; Emergency Provider Emergency Medicine; PCP Internal Medicine; Visit Provider Student in an Organized Health Care Education/Training Program
DX: N10 Acute pyelonephritis (principal); I69.354 Hemiplegia and hemiparesis following cerebral infarction affecting left non-dominant side; I25.10 Atherosclerotic heart disease of native coronary artery without angina pectoris; B96.1 Klebsiella pneumoniae [K. pneumoniae] as the cause of diseases classified elsewhere; E11.9 Type 2 diabetes mellitus without complications; I10 Essential (primary) hypertension; E78.5 Hyperlipidemia, unspecified; Z66 Do not resuscitate; Z87.440 Personal history of urinary (tract) infections; Z79.85 Long-term (current) use of injectable non-insulin antidiabetic drugs; Z79.899 Other long term (current) drug therapy
CPT/HCPCS: 36415; 71045; 71260; 73502; 74177; 80048; 80053; 81001; 82947; 83605; 83735; 84484; 85007; 85025; 85027; 87086; 87088; 87186; 90656; 93005; 93306; 99285; J0696; J1650; J2270; J2405; J2470; J2543; J7120; Q9957; Q9967

== ENCOUNTER → 2025-03-07 17:01 | Outpatient (BNV) | payer OTHER, SELFPAY | PROVIDERS: Emergency Provider Emergency Medicine; PCP Internal Medicine; Visit Provider Radiology Diagnostic Radiology | DX: M31.19 Other thrombotic microangiopathy (principal); M85.88 Other specified disorders of bone density and structure, other site; I70.1 Atherosclerosis of renal artery; Z04.3 Encounter for examination and observation following other accident; I51.7 Cardiomegaly | CPT/HCPCS: 71045; 73502 ==

== ENCOUNTER 2025-03-07 22:42 | Outpatient (BNV) | payer OTHER, SELFPAY | END 2025-03-08 07:00 | PROVIDERS: Admitting Provider Physician Assistant; Emergency Provider Emergency Medicine; PCP Internal Medicine; Visit Provider Internal Medicine Cardiovascular Disease | DX: I51.89 Other ill-defined heart diseases (principal) | CPT/HCPCS: 93306 ==

== ENCOUNTER → 2025-03-07 22:42 | Outpatient (BNV) | payer OTHER, SELFPAY | PROVIDERS: Admitting Provider Physician Assistant; Emergency Provider Emergency Medicine; PCP Internal Medicine; Visit Provider Internal Medicine Cardiovascular Disease | DX: R55 Syncope and collapse (principal) | CPT/HCPCS: 93010; 99222 ==

== ENCOUNTER → 2025-03-07 22:42 | Outpatient (BNV) | payer OTHER, SELFPAY | PROVIDERS: Admitting Provider Physician Assistant; Emergency Provider Emergency Medicine; PCP Internal Medicine; Visit Provider Student in an Organized Health Care Education/Training Program | DX: N12 Tubulo-interstitial nephritis, not specified as acute or chronic (principal); E11.3553 Type 2 diabetes mellitus with stable proliferative diabetic retinopathy, bilateral; I10 Essential (primary) hypertension | CPT/HCPCS: 99223; 99232; 99233 ==

== ENCOUNTER 2025-03-20 12:50 | Outpatient (AMB) | payer OTHER, SELFPAY ==
--- NOTE | 2025-03-20 13:10 | A.OFFPC_ITS ---
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: No Allergies No Known Allergies (No Known Allergies*) Allergy (Verified 03/07/25 16:58) Tobacco use date assessed: 03/20/25 Dental Screening Dental Screen Date: 03/20/25 Did you have a dental visit in the last 12 months?: Yes Did you have a dental problem in the last 6 months where you did not have access to dental care?: No Was dental information given to patient?: Patient has dentist HPI TCM TCM Information Date of Discharge 03/13/25 Interactive Contact Date (Reference documentation from this date) 03/13/25 [facility] Medical History History of adenomatous polyp of colon Iron deficiency anemia Hx of cancer of uterus Diabetes mellitus with retinopathy History of CVA with residual deficit Atherosclerotic cardiovascular disease Intracranial atherosclerosis Normocytic normochromic anemia Cancer History of degenerative joint disease GERD (gastroesophageal reflux disease) Sleep apnea Asthma Depression Vitamin D deficiency Essential hypertension Dyslipidemia Type 2 diabetes mellitus without complication, without long-term current use of insulin Surgical History Hx of hand surgery History of carpal tunnel release Hx of endoscopy Hx of colonoscopy Hx of cholecystectomy History of total abdominal hysterectomy Family History Father Cancer Mother Cancer Myocardial infarction Family/Other Diabetes Social History Household Members: None Housing: Apartment Do you presently have visiting nurse or other home services: Yes Alcohol intake: never Patient Tobacco Use Status: Never used Tobacco e-Cigarette/Vaping Use: Never Used Second Hand Smoke Exposure: No Advance Directives Date on File: 01/20/21 service: No Current occupational status: disabled Current occupation: rt handed Cognitive needs: No Hearing needs: No Vision needs: No Questionnaire Thrive Questionnaire Date Thrive assessed: 03/08/25 HAVEN-7 AMB Questionnaire HAVEN-7 Date HAVEN - 7 assessed: 08/23/24 Source: Developed by Drs. Manish Eckert, Lola Bernard, Enrique Red and colleagues, with an educational ajime from [employer]. Physical exam (Primary Care) Vital Signs: Last Vital Signs Temp 98.0 F 03/20/25 13:12 Pulse 73 03/20/25 13:12 Resp 16 03/20/25 13:12 BP 140/80 H 03/20/25 13:12 Pulse Ox 99 03/20/25 13:12 Oxygen Delivery Method Room Air 03/20/25 13:12 BMI result Body Mass Index 30.1 Tobacco/Smoking Status: Tobacco use Status Tobacco use date assessed 03/20/25 03/20/25 13:19 Patient Tobacco Use Status Never used Tobacco 03/20/25 13:11 e-Cigarette/Vaping Use Never Used 03/20/25 13:11 Thrive Assessment: Date of Thrive Assessment Date Thrive assessed 03/08/25 03/20/25 13:11 Results AMB Urinalysis, Automated UA Leukoctes 0 Ty/uL Last Edit by Shasta Mcclellan, BOY on 03/20/25 13:35 UA Nitrite Negative Last Edit by Shasta Mcclellan, [employer]OPMENT SALES EXECUTIVE on 03/20/25 13:35 UA Urobilinogen 0.2 mg/dL Last Edit by Shasta Mcclellan, BUSINESS [employer]ELOPMENT SALES EXECUTIVE on 03/20/25 13:35 UA Protein 15 mg/dL Last Edit by Shasta Mcclellan, [facility] on 03/20/25 13:35 UA pH 6.0 Last Edit by Shasta Mcclellan, [facility] on 03/20/25 13:35 UA Blood 0 Carlo/uL Last Edit by Shasta Mcclellan, BUSINESS DEVELOPMENT SALES EXECUTIVE on 03/20/25 13:35 UA Specific [place] 1.015 Last Edit by Shasta Mcclellan, BUSINESS DEVELOPMENT SALES EXECUTIVE on 03/20/25 13:35 UA Ketone Negative Last Edit by Shasta Mcclellan, BOY on 03/20/25 13:35 UA Bilirubin 0 mg/dL Last Edit by Shasta Mcclellan, BUSINESS DEVELOPMENT SALES EXECUTIVE on 03/20/25 13:35 UA Glucose 0 mg/dL Last Edit by Shasta Mcclellan CMA on 03/20/25 13:35 Results Reviewed Results Reviewed: Laboratory Last Values Urine pH (Auto) 6.0 03/20/25 13:34 Specific [place] (Auto) 1.015 03/20/25 13:34 Urine Protein (Auto) 15 mg/dL 03/20/25 13:34 Glucose (UA)(Auto) 0 mg/dL 03/20/25 13:34 Urine Ketones (Auto) Negative 03/20/25 13:34 Urine Blood (Auto) 0 Carlo/uL 03/20/25 13:34 Urine Nitrite (Auto) Negative 03/20/25 13:34 Urine Bilirubin (Auto) 0 mg/dL 03/20/25 13:34 Urine Urobilinogen (Auto) 0.2 mg/dL 03/20/25 13:34 Leukocyte Esterase (Auto) 0 Ty/uL 03/20/25 13:34 Coding Diagnoses Gout M10.9 History of CVA with residual deficit I69.30 Assessment & Plan Assessment & Plan (1) Gout: Code(s): M10.9 - Gout, unspecified Category: Medical (2) History of CVA with residual deficit: Code(s): I69.30 - Unspecified sequelae of cerebral infarction Category: Medical Orders: Orders AMB Urinalysis Automated Today Z13.9 - Encounter for screening, unspecified Medications: New clotrimazole-betamethasone 1-0.05 % 1 appl topical BID 15 grams 0RF 7 days [rollator walker witrh seat] As directed 1 ea 0RF I69.30 - Unspecified sequelae of cerebral infarction, M10.9 - Gout, unspecified Changed From ibuprofen 600 mg PO BID PRN 40 tabs 0RF for pain To ibuprofen 600 mg PO DAILY PRN 30 tabs 0RF for pain
[2025-03-20 13:12] VITALS: BP 140/80; PULSE 73; RESP 16; TEMP 36.7; O2SAT 99; BMI 30.1
== END 2025-03-20 14:50 | disposition home or self-care (01) ==
LOC: HO.HMCC 12:51
PROVIDERS: PCP Internal Medicine; Visit Provider Internal Medicine
DX: Z13.9 Encounter for screening, unspecified (principal)

== ENCOUNTER → 2025-03-20 12:50 | Outpatient (BNVA) | payer OTHER, SELFPAY | PROVIDERS: PCP Internal Medicine; Visit Provider Internal Medicine | DX: E11.3553 Type 2 diabetes mellitus with stable proliferative diabetic retinopathy, bilateral (principal); E78.5 Hyperlipidemia, unspecified; I10 Essential (primary) hypertension; N89.8 Other specified noninflammatory disorders of vagina; Z87.448 Personal history of other diseases of urinary system | CPT/HCPCS: 81003; 99495 ==

== ENCOUNTER 2025-05-02 11:32 | Outpatient (AMB) | payer OTHER, SELFPAY ==
--- NOTE | 2025-05-02 11:45 | A.OFFVIS_ITS ---
Intake Visit Reasons: INJ- Right hip pain last 11/07/24 Intake Note: Marisol is a 59 year old female who presents today with complaints of right hip pain. Her last visit on 11/07/24, she was given an injection that provided her with relief for only 2 days and her pain returned. Complaints of constant pain at the lateral side of hip that travels down her leg. She wishes to repeat injection today. Allergies No Known Allergies (No Known Allergies*) Allergy (Verified 03/26/25 01:45) HPI HPI INJ- Right hip pain last 11/07/24: Details: 60-year-old female returns to the office today for a follow-up right hip pain. I had seen her back in October of 2024 where she had a right hip injection in the bursa which she states was helpful for a few days. She has not been to formal physical therapies as she states she can not drive due to her dizzy spells. She constantly has pain on her right side when she is standing for long periods of time and also sleeping on the right side. [facility] Medical History History of adenomatous polyp of colon Iron deficiency anemia Hx of cancer of uterus Diabetes mellitus with retinopathy History of CVA with residual deficit Atherosclerotic cardiovascular disease Intracranial atherosclerosis Normocytic normochromic anemia Cancer History of degenerative joint disease GERD (gastroesophageal reflux disease) Sleep apnea Asthma Depression Vitamin D deficiency Essential hypertension Dyslipidemia Type 2 diabetes mellitus without complication, without long-term current use of insulin Surgical History Hx of hand surgery History of carpal tunnel release Hx of endoscopy Hx of colonoscopy Hx of cholecystectomy History of total abdominal hysterectomy Family History Father Cancer Mother Cancer Myocardial infarction Family/Other Diabetes Social History Household Members: None Housing: Apartment Do you presently have visiting nurse or other home services: Yes Alcohol intake: never Patient Tobacco Use Status: Never used Tobacco e-Cigarette/Vaping Use: Never Used Second Hand Smoke Exposure: No Advance Directives Date on File: 01/20/21 service: No Current occupational status: disabled Current occupation: rt handed Cognitive needs: No Hearing needs: No Vision needs: No Review of Systems Const All systems reviewed & are unremarkable except as noted in HPI and below Physical Exam Const General: cooperative and no acute distress Orientation/consciousness: patient oriented x3 Resp Effort & Inspection: normal respiratory effort and able to speak in complete sentences Cardio Peripheral pulses: Peripheral pulses 2+ throughout Neuro General: patient oriented x3 Extrem Other: right hip normal to inspection. No pain with ROM of the hip. Pain along the greater trochanter. No pain with hip flexion or abduction.There is tenderness along the si joint, Negative SLR. NVI. Office Procedures AMB Joint Injection/Aspiration Joint Injection/Aspiration Primary Site: Right Trochanteric Bursa Prep: site was prepped using aseptic technique, ethochloride spray was applied and injection warnings given Injected: 40 mg of, Decadron, with 3 mL of, 1% plain Lidocaine and 0.25% Bupivacaine Procedure: The patient tolerated the procedure well and there was some relief with the local anesthesia Coding 20229 - Glenohumeral/Tronchanteric Bursa/Intraarticular Procedure code (CPT) selection complete Assessment & Plan Assessment & Plan (1) Osteoarthritis of right shoulder: Code(s): M19.011 - Primary osteoarthritis, right shoulder Category: Medical Plan: Depo Medrol 40mg injection given today in right hip, which was tolerated well. Recommended rest, ice and elevation and OTC antiinflammatories prn for discomfort. We also discussed their diabetes and the effect the steroid can have on their blood glucose levels; therefore, they will continue to monitor these very closely over the next 72 hours. If symptoms persist over the next 4-6 weeks, they will contact our office, otherwise, prn. Coding Level of Care Code Est Pt Level 3 (30073) Add On Problem Visit Only Diagnoses Osteoarthritis of right shoulder M19.011 CPT Codes Coding - Joint 7: 70411 - Glenohumeral/Tronchanteric Bursa/Intraarticular ([id number])
--- OUTSIDE RECORDS SUMMARY | 2025-05-02 13:17 | XMS_ITS | Clinical Summary ---
Author Organization [facility] Address [address] [place] [id number] Phone Care Team Providers Care Wheat Shipper Name Role Phone Unknown, Unknown Primary Care [...] topic Medical Devices Not on file [place] [address] T[employer] ONE CARE MEDICARE PART A & B [facility] ONE CARE MEDICARE REPLACEMENT ODD TOTAL ONE CARE MEDICARE PART A & B [facility] ONE CARE MEDICARE REPLACEMENT ODD TOTAL ONE CARE MEDICARE PART A & B ONE CARE MEDICARE [place]PLAC[place] [address] [address] [place] [address] ONE CARE MEDICARE PART A & B [facility] CARE MEDICARE REPLACEMENT [facility] MEDICARE PART A & B [facility] CARE MEDICARE REPLACEMENT [facility] ONE CARE MEDICARE PART A & B [facility] ONE CARE MEDICARE REPLACEMENT [employer] ONE CARE MEDICARE PART A & B [facility] ONE CARE MEDICARE REPLACEMENT [facility] ONE CARE MEDICARE PART A & B [facility] CARE MEDICARE REPLACEMENT [facility] [employer] ONE CARE MEDICARE PART A & B [facility] ONE CARE MEDICARE REPLACEMENT Care Teams Wheat Shipper Relationship Specialty Start Date End Date Unknown, Unknown, PCP - General 01/01/15 Additional Source Comments The information contained in this document represents components of the legal health record. It is not the complete legal health record.[facility]
--- OUTSIDE RECORDS SUMMARY | 2025-05-02 13:17 | XMS_ITS | Clinical Summary ---
Author Organization [facility] ity Address [address] [place] [address] Care Team Providers Care Well Servicing Rig Operator Name Role Phone Unavailable Primary Care Provider [...] Depression Screening 05/03/2024 COVID-19 Vaccine (1 - 2024-2 6 season) 2025 Influenza Vaccine (#1) 2025 RSV [...]
== END 2025-05-02 13:26 | disposition home or self-care (01) ==
LOC: HO.HOS 11:32
PROVIDERS: PCP Internal Medicine; Visit Provider Physician Assistant
DX: M19.011 Primary osteoarthritis, right shoulder (principal)
CPT/HCPCS: 20610; 99213

== ENCOUNTER → 2025-05-02 11:32 | Outpatient (BNVA) | payer OTHER, SELFPAY | PROVIDERS: PCP Internal Medicine; Visit Provider Physician Assistant | DX: M16.11 Unilateral primary osteoarthritis, right hip (principal); E11.9 Type 2 diabetes mellitus without complications | CPT/HCPCS: 20610; 99212; J0665; J1100; J2003 ==